=== PATIENT | male | born 1955 | race Caucasian/White ===

== ENCOUNTER → 2016-06-08 | Outpatient (CLI) | payer OTHER ==
[~2016-06-08] MED LIST: ADVIN25/60 INH; ADVIN25050 INH; ALBUAER INH; ALBUAER19 INH; AMLO10TA2 PO; ASPI81TA28 PO; CEPH500C2 PO; CLOP1TAB15 PO; CZR25 PO; CZR50 PO; FLV1 PO; FRRS300 PO; FURO-85 PO; FURO40TA3 PO; GLC/500 PO; INSDGIPEN SC; LEVO125T5 PO; LOSA1TAB PO; LPR25 PO; LPT/40 PO; MAGN400C2 PO; MAGN400T5 PO; METO25TA56 PO; MULT-513 PO; MULT-589 PO; NVLGI SC; PLV75 PO; POTA20TA13 PO; POTTAB2 PO; PRLSR20 PO; PRS5 PO; PRZ/40 PO; RANI300T2 PO; SPRIN INH; SUCR1TAB PO; SULF800T23 PO; SYMIN160 INH; TAMS0.4C38 PO; THM100 PO; VENL150T33 PO; VENL75CA73 PO; VNTHFA/IN INH; ZNT/300 PO
--- NOTE | 2016-06-08 11:48 | DIAGNOSTIC IMAGING REPORT ---
NUCLEAR MEDICINE PULMONARY VENTILATION/PERFUSION SCAN CLINICAL HISTORY: Exercise hypoxemia. Elevated hemidiaphragm. Shortness of breath. COMPARISON STUDY: Chest CT dated 01/08/2016 FINDINGS: The patient was ventilated utilizing 32.7 mCi of technetium 99m DTPA aerosol. The patient was perfused utilizing 5.5 mCi of technetium 99m MAA. The ventilation and perfusion studies were within normal limits, with the exception of a mildly elevated right hemidiaphragm. IMPRESSION: Normal study, no evidence of pulmonary embolism. Electronically signed by: Rich Abreu M.D. 06/08/2016 11:46 AM
--- NOTE | 2016-06-08 12:14 | DIAGNOSTIC IMAGING REPORT ---
CHEST 2 VIEWS ROUTINE CLINICAL HISTORY: Hypoxemia COMPARISON STUDY: 08/10/2015 FINDINGS: The heart is the upper limits of normal in size. There is a retrocardiac opacity consistent with a hiatal hernia. There is been interval resolution of the interstitial edema. There are no significant pleural effusions. There is no focal pulmonary consolidation.[ IMPRESSION: Hiatal hernia. No active disease in the chest. Electronically signed by: Rich Abreu M.D. 06/08/2016 12:12 PM
[2016-06-08 12:28] LABS: ARTERIAL BLD GAS O2 SATURATION 94.9 % (90-95); ARTERIAL BLOOD GAS BASE EXCESS 6.9 mEq/L (-9-1.8); ARTERIAL BLOOD GAS HCO3 30 mmol/L (19-24); ARTERIAL BLOOD GAS PO2 76 mm/Hg (80-95)
[2016-06-08 13:18] LABS: ALLEN TEST POS (POS); ARTERIAL BLOOD GAS pH 7.53 (7.35-7.45); O2 ADMINISTRATION RA
== END | disposition home or self-care (01) ==
LOC: C.RAD 10:13
PROVIDERS: ATTEND Registered Nurse
DX: R09.02 Hypoxemia (principal); G47.34 Idiopathic sleep related nonobstructive alveolar hypoventilation; J98.6 Disorders of diaphragm; K44.9 Diaphragmatic hernia without obstruction or gangrene

== ENCOUNTER 2016-07-17 11:13 | Observation (INO) | payer OTHER ==
[~2016-07-17] VITALS: Ht 180.3 cm; Wt 115.8 kg
[~2016-07-17 11:13] MED LIST changes: -ADVIN25/60 INH; -ADVIN25050 INH; -ALBUAER INH; -CEPH500C2 PO; -CLOP1TAB15 PO; -CZR25 PO; -FRRS300 PO; -FURO40TA3 PO; -INSDGIPEN SC; +LEVO125T4 PO; -LEVO125T5 PO; -LOSA1TAB PO; -MAGN400C2 PO; -MAGN400T5 PO; -METO25TA56 PO; -MULT-513 PO; -POTTAB2 PO; -PRS5 PO; -RANI300T2 PO; -SPRIN INH; -SUCR1TAB PO; -SULF800T23 PO; -SYMIN160 INH; -VENL150T33 PO; -VENL75CA73 PO; -VNTHFA/IN INH; -ZNT/300 PO
--- NOTE | 2016-07-17 12:06 | EMERGENCY ROOM VISIT NOTE ---
History Report prepared by [place]: Aarti Hess Under the Supervision of: Dr. Umair Kee M.D. First contact with patient: 11:37 Chief Complaint: SYNCOPE (NEAR SYNCOPE) Stated Complaint: DIZZINESS Nursing Triage Summary: see triage note History of Present Illness The patient is a 60 year old male who presents to the Emergency Room with complaints of resolved lightheadedness occurring today. The patient was at pulmonary rehab after a recent heart attack. Immediately after he finished his exercises, he became lightheaded and hypotensive. He was referred to the Emergency Room from the rehab. For the past few days, the patient has been having generalized body aches with even a small amount of exertion. He denies any chest pain, shortness of breath, dark/tarry stools, or any other complaints. Source of History: patient Onset: today Position: other (global) Quality: other (lightheadedness) Timing: resolved Associated Symptoms: No SOB, No chest pain Review of Systems See HPI for pertinent positives & negatives. A total of 10 systems reviewed and were otherwise negative. Past Medical & Surgical Medical Problems: (1) Aortic root enlargement (2) BPH (benign prostatic hyperplasia) (3) Dyslipidemia (4) GERD (gastroesophageal reflux disease) (5) Hyponatremia (6) Hypothyroidism (7) Orthostatic hypotension (8) Type 1 diabetes Surgical Problems: (1) History of hip replacement (2) History of tonsillectomy and adenoidectomy Family History No pertinent family history Social History Smoking Status: Former Smoker Alcohol Use: occasionally Marital Status: Housing Status: lives with family Occupation Status: employed Current/Historical Medications Scheduled Amlodipine Besylate (Norvasc), 2.5 MG PO BID Aspirin (Aspirin Ec), 81 MG PO DAILY Atorvastatin (Lipitor), 20 MG PO DAILY Budesonide/Formoterol Fumarate (Symbicort 160/4.5 Inhaler), 2 PUFFS INH BID Clopidogrel Bisulfate (Clopidogrel), 75 MG PO QAM Furosemide (Lasix), 20 MG PO DAILY Insulin Aspart (Novolog), 0 SC TID Insulin Glargine (Lantus Solostar), 70 UNITS SC DAILY Levothyroxine Sodium (Levothyroxine Sodium), 125 MCG PO DAILY Metformin Hcl (Glucophage), 1,000 MG PO BID Metoprolol Tartrate (Lopressor) (Lopressor), 12.5 MG PO BID Omeprazole (Prilosec), 20 MG PO QAM Potassium Chloride Microencaps (Potassium Chloride Er), 20 MEQ PO BID Tamsulosin Hcl (Flomax), 0.4 MG PO DAILY Scheduled PRN Albuterol Hfa (Ventolin Hfa), 2 PUFFS INH Q4H PRN for SOB/Wheezing Allergies Coded Allergies: No Known Allergies (Unverified , 07/17/16) Physical Exam Vital Signs Date Time Temp Pulse Resp B/P Pulse Ox O2 Delivery O2 Flow Rate FiO2 07/17/16 13:45 99 Nasal Cannula 2.0 07/17/16 13:34 69 22 99 Nasal Cannula 2.0 07/17/16 13:30 119/65 07/17/16 13:28 119/65 07/17/16 13:19 64 07/17/16 13:04 67 19 98 07/17/16 12:58 111/68 07/17/16 12:34 67 23 97 07/17/16 12:29 111/68 07/17/16 12:28 67 16 94 07/17/16 12:23 67 20 97 07/17/16 12:18 69 14 07/17/16 12:13 66 20 98 07/17/16 12:08 67 19 95 07/17/16 12:03 68 28 96 Nasal Cannula 2.0 07/17/16 11:59 108/63 07/17/16 11:58 68 22 93 Nasal Cannula 2.0 07/17/16 11:53 68 19 95 Nasal Cannula 2.0 07/17/16 11:48 70 20 93 Nasal Cannula 2.0 07/17/16 11:43 72 26 93 Nasal Cannula 2.0 07/17/16 11:40 87/55 07/17/16 11:38 70 19 96 Nasal Cannula 2.0 07/17/16 11:33 72 18 95 Nasal Cannula 2.0 07/17/16 11:31 78/48 07/17/16 11:28 92 Room Air 07/17/16 11:28 75 21 83/52 92 Room Air 07/17/16 11:28 74 18 108/64 92 Room Air 74 83/52 75 78/48 07/17/16 11:23 70 21 91 07/17/16 11:21 72 07/17/16 11:19 36.9 72 18 108/64 92 Room Air 07/17/16 11:18 71 23 94 07/17/16 11:17 108/64 Physical Exam CONSTITUTIONAL: No acute distress HEENT: No icterus, moist mucous membranes NECK: No meningismus, trachea is midline. CARDIOVASCULAR: Regular rate, normal perfusion RESPIRATORY: Unlabored breathing. Clear to auscultation. GASTROINTESTINAL: Non-tender GENITOURINARY: No flank tenderness MUSCULOSKELETAL: Full range of motion NEUROLOGIC: No acute gross focal deficits. PSYCHIATRIC: Normal affect SKIN: Normal for ethnicity. Medical Decision & Procedures ER Provider Diagnostic Interpretation: X-ray results as stated below per interpretation by me and the radiologist. SINGLE VIEW CHEST CLINICAL HISTORY: Hypotension. FINDINGS: An AP, portable, upright chest radiograph is compared to study dated 06/08/2016 and correlated with chest CT dated 01/08/2016. The examination is degraded by portable technique and patient rotation. The cardiomediastinal silhouette is unremarkable. A hiatal hernia is noted. Chronic interstitial thickening and mild elevation of the right hemidiaphragm are similar to previous. No airspace consolidation, pleural effusion, or pneumothorax is seen. The bony thorax is grossly intact. IMPRESSION: 1. No acute cardiopulmonary abnormality. 2. Hiatal hernia. Electronically signed by: Kwaku Collazo M.D. 07/17/2016 12:09 PM Dictated Date/Time: 07/17/2016 12:08 PM Laboratory Results 07/17/16 12:58 Red Blood Count 3.06, Mean Corpuscular Volume 95.1, Mean Corpuscular Hemoglobin 31.4, Mean Corpuscular Hemoglobin Concent 33.0, Mean Platelet Volume 9.6, Neutrophils (%) (Auto) 76.8, Lymphocytes (%) (Auto) 13.0, Monocytes (%) (Auto) 7.9, Eosinophils (%) (Auto) 1.5, Basophils (%) (Auto) 0.5, Neutrophils # (Auto) 7.00, Lymphocytes # (Auto) 1.19, Monocytes # (Auto) 0.72, Eosinophils # (Auto) 0.14, Basophils # (Auto) 0.05 07/17/16 12:26 Test 07/17/16 12:26 07/17/16 12:58 07/17/16 13:30 Prothrombin Time 11.1 SECONDS (9.0-12.0) Prothromb Time International Ratio 1.0 (0.9-1.1) Activated Partial Thromboplast Time 26.3 SECONDS (21.0-31.0) Partial Thromboplastin Ratio 1.0 Anion Gap 16.0 mmol/L (3-11) Est Creatinine Clear Calc Drug Dose 86.2 ml/min Estimated GFR () 76.8 Estimated GFR (Non- 66.3 BUN/Creatinine Ratio 5.4 (10-20) Calcium Level 9.2 mg/dl (8.5-10.1) White Blood Count 9.13 K/uL (4.8-10.8) Red Blood Count 3.06 M/uL (4.7-6.1) Hemoglobin 9.6 g/dL (14.0-18.0) Hematocrit 29.1 % (42-52) Mean Corpuscular Volume 95.1 fL (80-100) Mean Corpuscular Hemoglobin 31.4 pg (25-34) Mean Corpuscular Hemoglobin Concent 33.0 g/dl (32-36) Platelet Count 272 K/uL (130-400) Mean Platelet Volume 9.6 fL (7.4-10.4) Neutrophils (%) (Auto) 76.8 % Lymphocytes (%) (Auto) 13.0 % Monocytes (%) (Auto) 7.9 % Eosinophils (%) (Auto) 1.5 % Basophils (%) (Auto) 0.5 % Neutrophils # (Auto) 7.00 K/uL (1.4-6.5) Lymphocytes # (Auto) 1.19 K/uL (1.2-3.4) Monocytes # (Auto) 0.72 K/uL (0.11-0.59) Eosinophils # (Auto) 0.14 K/uL (0-0.5) Basophils # (Auto) 0.05 K/uL (0-0.2) RDW Standard Deviation 56.5 fL (36.4-46.3) RDW Coefficient of Variation 16.5 % (11.5-14.5) Immature Granulocyte % (Auto) 0.3 % Immature Granulocyte # (Auto) 0.03 K/uL (0.00-0.02) Phosphorus Level 2.9 mg/dl (2.5-4.9) Magnesium Level 1.8 mg/dl (1.8-2.4) Total Bilirubin 0.5 mg/dl (0.2-1) Direct Bilirubin 0.1 mg/dl (0-0.2) Aspartate Amino Transf (AST/SGOT) 47 U/L (15-37) Alanine Aminotransferase (ALT/SGPT) 32 U/L (12-78) Alkaline Phosphatase 104 U/L (45-117) Total Protein 7.6 gm/dl (6.4-8.2) Albumin 3.1 gm/dl (3.4-5.0) Thyroid Stimulating Hormone (TSH) 1.360 uIu/ml (0.300-4.500) Labs reviewed by ED physician. Medications Administered Medications (Trade) Dose Ordered Sig/Shante Route Start Time Stop Time Status Last Admin Dose Admin Aspirin 324 mg 324 mg NOW STAT PO 07/17/16 13:09 07/17/16 13:11 DC 07/17/16 13:54 324 MG Sodium Chloride (Nss 1000ml) 1,000 ml @ 250 mls/hr Q4H IV 07/17/16 15:10 07/17/16 23:09 07/17/16 19:41 250 MLS/HR ECG Indication: other (Lightheadedness) Rate (beats per minute): 68 Rhythm: sinus rhythm Findings: nonspecific-ST abn, no ectopy, other (normal axis) ED Course 1137: Past medical records reviewed. The patient was evaluated in room B11A. A complete history and physical examination was performed. 1309: Aspirin 324 mg PO 1336: Upon reexamination the patient is resting comfortably. I discussed results and treatment plan with the patient. He verbalizes agreement and understanding. [facility] The patient will be evaluated for further management. Medical Decision Differential diagnosis includes but is not limited to orthostasis, metabolic abnormality. 60-year-old presents to the emergency room from cardiac rehabilitation for evaluation of lightheadedness and hypotension. He denies any shortness of breath out of the ordinary and denies any chest pain. Troponin noted to be elevated and patient appears quite well in emergency room. Given his initial blood pressure of roughly 80/40 and abnormal troponin decision made to keep patient in hospital. He remained hemodynamically stable throughout emergency Department course. Consults Time Called: 1338 Consulting Physician: Lil[facility] Returned Call: [phone] I spoke with [facility] Impression Primary Impression: Hypotension Additional Impression: Elevated troponin Scribe Attestation The scribe's documentation has been prepared under my direction and personally reviewed by me in its entirety. I confirm that the note above accurately reflects all work, treatment, procedures, and medical decision making performed by me. Departure Information Dispostion Being Evaluated By Hospitalist Referrals Laila Bruce M.D. (PCP) Patient Instructions My [facility] Problem Qualifiers
--- NOTE | 2016-07-17 12:11 | DIAGNOSTIC IMAGING REPORT ---
SINGLE VIEW CHEST CLINICAL HISTORY: Hypotension. FINDINGS: An AP, portable, upright chest radiograph is compared to study dated 06/08/2016 and correlated with chest CT dated 01/08/2016. The examination is degraded by portable technique and patient rotation. The cardiomediastinal silhouette is unremarkable. A hiatal hernia is noted. Chronic interstitial thickening and mild elevation of the right hemidiaphragm are similar to previous. No airspace consolidation, pleural effusion, or pneumothorax is seen. The bony thorax is grossly intact. IMPRESSION: 1. No acute cardiopulmonary abnormality. 2. Hiatal hernia. Electronically signed by: Kwaku Collazo M.D. 07/17/2016 12:09 PM Dictated Date/Time: 07/17/2016 12:08 PM
[2016-07-17] MEDS ORDERED: VNTHFA/IN INH (12:34)
[2016-07-17] MEDS ORDERED: INSDGIPEN SC (12:41)
[2016-07-17 12:47] LABS: PROTHROMBIN TIME (PATIENT) 11.1 SECONDS (9.0-12.0)
[2016-07-17] MEDS ORDERED: ADVIN25/60 INH (12:47)
[2016-07-17] MEDS ORDERED: RANI300T2 PO (12:47)
[2016-07-17] MEDS ORDERED: LOSA1TAB PO (12:47)
[2016-07-17] MEDS ORDERED: MAGN400C2 PO (12:47)
[2016-07-17] MEDS ORDERED: POTTAB2 PO (12:47)
[2016-07-17 12:51] LABS: BUN/CREATININE RATIO 5.4 (10-20); CALCIUM 9.2 mg/dl (8.5-10.1); CREATININE 1.2 mg/dl (0.60-1.40)
[2016-07-17 13:09] LABS: BASO % 0.5 %; BASO ABS # 0.05 K/uL (0-0.2); COMPLETE YES; EOS % 1.5 %; HEMATOCRIT 29.1 % (42-52); IG% 0.3 %; LYMPH ABS # 1.19 K/uL (1.2-3.4); MEAN CELL VOLUME 95.1 fL (80-100); MEAN CORPUSCULAR HEMOGLOBIN 31.4 pg (25-34); MEAN PLATELET VOLUME 9.6 fL (7.4-10.4); MONO % 7.9 %; NEUT % 76.8 %; PLATELET COUNT 272 K/uL (130-400); RED BLOOD COUNT 3.06 M/uL (4.7-6.1); WHITE BLOOD COUNT 9.13 K/uL (4.8-10.8)
[2016-07-17] MEDS ORDERED: ASPIRIN 324 MG CHEW PO STA (13:09)
[2016-07-17 13:45] VITALS: O2SAT 99; Ht 180.3 cm; Wt 115.8 kg
[2016-07-17] MEDS ORDERED: GLUCAGON FOR INJ 1 MG VIAL SQ PRN (15:15)
[2016-07-17] MEDS ORDERED: GLUCOSE 40% GEL 15 GM TUBE PO PRN (15:15)
[2016-07-17] MEDS ORDERED: NITROGLYCERIN 0.4 MG SL PER TAB CHARGE SL PRN ×2 (15:15→15:30)
[2016-07-17] MEDS ORDERED: DEXTROSE 50% 50 ML SYR IV PRN (15:15)
[2016-07-17] MEDS ORDERED: ACETAMINOPHEN 325 MG TAB PO PRN (15:15)
[2016-07-17] MEDS ORDERED: MoRPHine SULFATE 2 MG/ML CARP IV PRN (15:15)
[2016-07-17] MEDS ORDERED: GLUCOSE 10 TABS/TUBE PO PRN (15:15)
[2016-07-17] MEDS ORDERED: ALBUTEROL HFA 8 GM INHALER INH PRN (15:30)
[2016-07-17] MEDS ORDERED: PHARMACY GLYCEMIC MGMT CONSULT PRN (15:37)
[2016-07-17] MEDS ORDERED: METO25TA56 PO (15:42)
[2016-07-17] MEDS ORDERED: SYMIN160 INH (15:42)
[2016-07-17] MEDS ORDERED: IV FLUIDS COMPLETED PRN (15:45)
--- NOTE | 2016-07-17 15:50 | Pharmacy Progress Note ---
Glycemic Control Intl Consult Date of Service Jul 17, 2016. Scope Glycemic Pharmacist consulted by Dr Eastman on 07/17/16 for glycemic control and to write orders per [facility] inpatient glycemic control protocol Objective Weight (Kilograms): 114.300 Accuchecks BSG (last 24hrs): Test 07/17/16 12:26 Random Glucose 78 mg/dl (70-99) Laboratory Data (last 24hrs) Test 07/17/16 12:26 07/17/16 12:58 Anion Gap 16.0 mmol/L BUN/Creatinine Ratio 5.4 Blood Urea Nitrogen 7 mg/dl Creatinine 1.20 mg/dl Potassium Level 3.0 mmol/L Sodium Level 138 mmol/L White Blood Count 9.13 K/uL Red Blood Count 3.06 M/uL Hemoglobin 9.6 g/dL Hematocrit 29.1 % Mean Corpuscular Volume 95.1 fL Mean Corpuscular Hemoglobin 31.4 pg Mean Corpuscular Hemoglobin Concent 33.0 g/dl Platelet Count 272 K/uL Mean Platelet Volume 9.6 fL Neutrophils (%) (Auto) 76.8 % Lymphocytes (%) (Auto) 13.0 % Monocytes (%) (Auto) 7.9 % Eosinophils (%) (Auto) 1.5 % Basophils (%) (Auto) 0.5 % Neutrophils # (Auto) 7.00 K/uL Lymphocytes # (Auto) 1.19 K/uL Monocytes # (Auto) 0.72 K/uL Eosinophils # (Auto) 0.14 K/uL Basophils # (Auto) 0.05 K/uL HbA1c On order Recent Pertinent Medications Outpatient Anti-diabetic Regimen: * Lantus 70 units BID plus metformin 1000 mg BID * A1c = 9.3 % 02/2016 Risk Factors for Insulin Resistance: * Steroids: * Infection: * Pressors: * IVF: NS x 2 liters * Recent Surgery: recent [place] * Diet: heart healthy, type 2 diet * Mechanical Ventilation: Assessment & Plan ASSESSMENT: * ADA & AACE recommend a goal blood sugar range 140-180 mg/dl for the majority of critically ill & non-critically ill patients. However, more stringent targets may be selected in individual cases. PLAN FOR INPATIENT GLYCEMIC CONTROL: * Holding outpatient oral diabetes medications * Basal insulin with LANTUS 0-30 units SQ BID (based upon blood sugar --> if blood sugar > 120 then give Lantus 30 units, if blood sugar < 120 then give Lantus 20 units, if blood sugar < 100 then give Lantus 0 units) * Correctional Insulin with NOVOLOG per scale ACHS * Goal Range: Low 100 mg/dL - High 140 mg/dL * Correction Factor: 20 mg/dL/unit * Nutritional / Prandial insulin per carb ratio of 1 unit per 7 grams CHO consumed * Please note that the plan above was derived based on current level of insulin resistance and hospital stress. These recommendations are appropriate for inpatient admission only. Plan of care upon discharge will need to be reassessed to avoid potential outpatient hypo/hyperglycemia. Thank you.
--- NOTE | 2016-07-17 15:50 | History and Physical ---
History & Physical Date & Time of Service: Jul 17, 2016 at 14:49 Chief Complaint: Dizziness Primary Care Physician: Laila Bruce M.D. History of Present Illness 60 yoM with IDDM and h/o nonobstructive CAD presents to the ER after having low BP and lightheadedness without LOC after pulmonary rehab. He states that he had an episode of diarrhea last night once, he has also been taking daily potassium supplementation for the past 3 days prescribed to him from Dr. Ghosh and is on daily Lasix. He has a h/o ETOH abuse and reports daily pint of [place] whiskey and non-alcoholic beer. He was able to perform all the exercises in pulmonary rehab this morning, but only afterwards when they were assessing his BP was there concern because it was in the 80s systolic. He drank some water and repeat BP was reported to be in the 90s systolic. He stood up and became lightheaded, which caused the concern, and he was sent over to the ER. He denies LOC, chest pain, shortness of breath, headache, visual changes, URI symptoms, persistent diarrhea this morning (although no BM), abdominal pain, blood in stool, nausea or vomiting. He is unsure what caused the lone episode of watery diarrhea and states that he ate cantelaupe from [employer] or [employer] and had some lunchmeat on a sandwich. He is off the insulin pump now for 6 months, and is taking Lantus (which was just switched from pen to vial but kept at same dosage of 70 Units once daily) and he takes Novolog based on a sliding scale with a 1 to 7 carb ratio. He currently denies lightheadedness but vitals reveals orthostatic hypotension. He was given ASA, no fluids given yet. He has a K of 3.0 and has not eaten yet today. CXR is negative for active disease , EKG rveals SR 73 and CBC is normal aside from anemia which is known and at baseline, BMP normal aside from K of 3 and Cr 1.2. A troponin was checked and is 0.144. Past Medical/Surgical History Medical Problems: (1) Aortic root enlargement Status: Chronic (2) BPH (benign prostatic hyperplasia) Status: Chronic (3) Dyslipidemia Status: Chronic (4) GERD (gastroesophageal reflux disease) Status: Chronic (5) Hyponatremia Status: Chronic (6) Hypothyroidism Status: Chronic (7) Type 1 diabetes Status: Chronic Surgical Problems: (1) History of hip replacement Status: Chronic (2) History of tonsillectomy and adenoidectomy Status: Chronic Family History No pertinent family history Social History Smoking Status: Former Smoker Alcohol Use: heavy (pint of [place] daily) Marital Status: Housing status: lives with significant other Occupational Status: employed Immunizations History of Influenza Vaccine: Yes Influenza Vaccine Date: Feb 06, 2016 History of Tetanus Vaccine?: Yes Tetanus Immunization Date: Mar 15, 2009 History of Pneumococcal: Yes Pneumococcal Date: Feb 21, 2016 Multi-Drug Resistant Organisms History of MDRO: No Allergies Coded Allergies: No Known Allergies (Unverified , 07/17/16) Home Medications Scheduled Amlodipine Besylate (Norvasc), 2.5 MG PO BID Aspirin (Aspirin Ec), 81 MG PO DAILY Atorvastatin (Lipitor), 20 MG PO DAILY Budesonide/Formoterol Fumarate (Symbicort 160/4.5 Inhaler), 2 PUFFS INH BID Clopidogrel Bisulfate (Clopidogrel), 75 MG PO QAM Furosemide (Lasix), 20 MG PO DAILY Insulin Aspart (Novolog), 0 SC TID Insulin Glargine (Lantus Solostar), 70 UNITS SC DAILY Levothyroxine Sodium (Levothyroxine Sodium), 125 MCG PO DAILY Metformin Hcl (Glucophage), 1,000 MG PO BID Metoprolol Tartrate (Lopressor) (Lopressor), 12.5 MG PO BID Omeprazole (Prilosec), 20 MG PO QAM Potassium Chloride Microencaps (Potassium Chloride Er), 20 MEQ PO BID Tamsulosin Hcl (Flomax), 0.4 MG PO DAILY Scheduled PRN Albuterol Hfa (Ventolin Hfa), 2 PUFFS INH Q4H PRN for SOB/Wheezing Review of Systems All systems were reviewed and negative except as indicated in HPI. Physical Exam Vital Signs Date Time Temp Pulse Resp B/P Pulse Ox O2 Delivery O2 Flow Rate FiO2 07/17/16 13:45 99 Nasal Cannula 2.0 07/17/16 13:34 69 22 99 Nasal Cannula 2.0 07/17/16 13:30 119/65 07/17/16 13:28 119/65 07/17/16 13:19 64 07/17/16 13:04 67 19 98 07/17/16 12:58 111/68 07/17/16 12:34 67 23 97 07/17/16 12:29 111/68 07/17/16 12:28 67 16 94 07/17/16 12:23 67 20 97 07/17/16 12:18 69 14 07/17/16 12:13 66 20 98 07/17/16 12:08 67 19 95 07/17/16 12:03 68 28 96 Nasal Cannula 2.0 07/17/16 11:59 108/63 07/17/16 11:58 68 22 93 Nasal Cannula 2.0 07/17/16 11:53 68 19 95 Nasal Cannula 2.0 07/17/16 11:48 70 20 93 Nasal Cannula 2.0 07/17/16 11:43 72 26 93 Nasal Cannula 2.0 07/17/16 11:40 87/55 07/17/16 11:38 70 19 96 Nasal Cannula 2.0 07/17/16 11:33 72 18 95 Nasal Cannula 2.0 07/17/16 11:31 78/48 07/17/16 11:28 92 Room Air 07/17/16 11:28 75 21 83/52 92 Room Air 07/17/16 11:28 74 18 108/64 92 Room Air 74 83/52 75 78/48 07/17/16 11:23 70 21 91 07/17/16 11:21 72 07/17/16 11:19 36.9 72 18 108/64 92 Room Air 07/17/16 11:18 71 23 94 07/17/16 11:17 108/64 GEN: WNWD, in no acute distress, alert and appropriate HEENT: NC/AT, PERRL, normal sclerae CARDIO: reg rate, S1/2 heard without m/g/r LUNGS: CTA bilaterally, no crackles, rales or wheezes, good diaphragmatic excursion ABD: soft, non-tender, non-distended, no rebound or guarding EXTREMITY: RP and DP palpable 2+ bilat, no LE swelling or edema, extremities are warm and well-perfused NEURO: CN 2-12 intact, sensation intact throughout, knee reflex 2+ bilat MUSC: 5/5 strength throughout, no focal deficits SKIN: warm and dry Diagnostics Laboratory Results Results Past 24 Hours Test 07/17/16 12:26 07/17/16 12:58 07/17/16 13:30 Range/Units Prothrombin Time 11.1 9.0-12.0 SECONDS Prothromb Time International Ratio 1.0 0.9-1.1 Activated Partial Thromboplast Time 26.3 21.0-31.0 SECONDS Partial Thromboplastin Ratio 1.0 Sodium Level 138 136-145 mmol/L Potassium Level 3.0 3.5-5.1 mmol/L Chloride Level 97 98-107 mmol/L Carbon Dioxide Level 25 21-32 mmol/L Anion Gap 16.0 3-11 mmol/L Blood Urea Nitrogen 7 7-18 mg/dl Creatinine 1.20 0.60-1.40 mg/dl Est Creatinine Clear Calc Drug Dose 86.2 ml/min Estimated GFR () 76.8 Estimated GFR (Non- 66.3 BUN/Creatinine Ratio 5.4 10-20 Random Glucose 78 70-99 mg/dl Calcium Level 9.2 8.5-10.1 mg/dl Troponin I 0.144 0.142 0-0.045 ng/ml White Blood Count 9.13 4.8-10.8 K/uL Red Blood Count 3.06 4.7-6.1 M/uL Hemoglobin 9.6 14.0-18.0 g/dL Hematocrit 29.1 42-52 % Mean Corpuscular Volume 95.1 80-100 fL Mean Corpuscular Hemoglobin 31.4 25-34 pg Mean Corpuscular Hemoglobin Concent 33.0 32-36 g/dl Platelet Count 272 130-400 K/uL Mean Platelet Volume 9.6 7.4-10.4 fL Neutrophils (%) (Auto) 76.8 % Lymphocytes (%) (Auto) 13.0 % Monocytes (%) (Auto) 7.9 % Eosinophils (%) (Auto) 1.5 % Basophils (%) (Auto) 0.5 % Neutrophils # (Auto) 7.00 1.4-6.5 K/uL Lymphocytes # (Auto) 1.19 1.2-3.4 K/uL Monocytes # (Auto) 0.72 0.11-0.59 K/uL Eosinophils # (Auto) 0.14 0-0.5 K/uL Basophils # (Auto) 0.05 0-0.2 K/uL RDW Standard Deviation 56.5 36.4-46.3 fL RDW Coefficient of Variation 16.5 11.5-14.5 % Immature Granulocyte % (Auto) 0.3 % Immature Granulocyte # (Auto) 0.03 0.00-0.02 K/uL Diagnostic Radiology CXR IMPRESSION: 1. No acute cardiopulmonary abnormality. 2. Hiatal hernia. EKG SR 73 Impression Assessment and Plan 1. presyncope 2/2 orthostatic hypotension in setting of low K, diuretic use, not eating any food and recent diarrhea. Will place him on telemetry and rule out ACS overnight -IVF -replace K -hold Lasix -trend enzymes -monitor on telemetry -feed him -FSG came back with profound hypoglycemia (36) likely a result of am Lantus- pharmacy consult to assist with insulin management 2. IDDM-off insulin pump, low to 36 while on the floor likely related to am Lantus. Pharmacy consult, liberal coverage 3. ETOH abuse -gabapentin protocol -liberal benzos 4. elevated trop-rule out ACS (RFs include diabetic, asymptomatic) 5. Hypok-2/2 diuretic use vs diarrhea-as above 6. Diarrhea-if persistent, check stool studies 7. Anemia-chronic, at baseline. Cont outpatient workup/treatment DVT proph: Lovenox Full Code Dispo-to tele obs [facility] Level of Care Telemetry Advanced Directives Existing Living Will: No Existing Power of Audit Lead: No Resuscitation Status FULL RESUSCITATION VTE Prophylaxis Risk Level: Moderate Given or contraindicated: Enoxaparin (Lovenox)SQ
[2016-07-17 16:00] VITALS: BP 151/88; PULSE 74; TEMP 36.6; O2SAT 98; O2SAT 99
[2016-07-17] MEDS ORDERED: LORAZEPAM 1 MG TAB PO PRN (16:00)
[2016-07-17] MEDS ORDERED: GABAPENTIN 600 MG TAB PO SCH (16:00)
[2016-07-17] MEDS: INSULIN ASPART 100 UNITS/ML 3 ML PEN SC SCH ×2 (16:15→20:49)
[2016-07-17 16:28] LABS: MAGNESIUM 1.8 mg/dl (1.8-2.4); PHOSPHORUS 2.9 mg/dl (2.5-4.9); THYROID STIMULATING HORMONE 1.36 uIu/ml (0.300-4.500)
[2016-07-17] MEDS ORDERED: NVLGI SC (16:32)
[2016-07-17] MEDS: THIAMINE HCL 100 MG TAB PO SCH (17:26)
[2016-07-17] MEDS: POTASSIUM CHLORIDE 20 MEQ TABCR PO SCH ×2 (17:26→19:43)
[2016-07-17] MEDS: SODIUM CHLORIDE 0.9% 1000ML 1,000 ML IV SCH ×2 (17:26→19:41)
[2016-07-17] MEDS ORDERED: MULTI-VITAMIN INFUSION INJ 10 ML, THIAMINE HCL INJ 100 MG, FoLIC ACID INJ 1 MG in SODIU... IV SCH (17:30)
[2016-07-17] MEDS ORDERED: GABAPENTIN 1200MG LOADING DOSE PO SCH (18:00)
[2016-07-17 19:37] VITALS: BP 116/72; PULSE 84; TEMP 36.6; O2SAT 95
[2016-07-17] MEDS: BUDESONIDE/FORMOTEROL FUMARATE 160/4.5 60 PUFFS/INHALER INH SCH (19:41)
[2016-07-17] MEDS: METOPROLOL TARTRATE 25 MG TAB PO SCH (19:42)
[2016-07-17] MEDS: AMLODIPINE BESYLATE 5 MG TAB PO SCH (19:43)
[2016-07-17 20:00] VITALS: O2SAT 95
[2016-07-17 20:21] LABS: CKMB/CK RATIO 1.5 (0-3.0)
[2016-07-17] MEDS ORDERED: ENOXAPARIN 40 MG/0.4 ML SYR SC SCH (21:00)
[2016-07-17] MEDS ORDERED: INSULIN GLARGINE SOLOSTAR 100 UNITS/ML 3 ML PEN SC SCH (21:00)
[2016-07-17 23:51] VITALS: BP 165/93; PULSE 71; TEMP 36.7; O2SAT 97
[2016-07-18] VITALS (8 sets, daily range): BP systolic 148–174; BP diastolic 89–110; PULSE 68–74; TEMP 36.6–36.9; O2SAT 92–95
[2016-07-18] MEDS: GABAPENTIN 600MG Q6H DOSE PO SCH ×2 (01:16→06:14)
[2016-07-18] MEDS: POTASSIUM CHLORIDE 20 MEQ TABCR PO SCH ×2 (01:16→08:11)
[2016-07-18 02:17] LABS: CKMB/CK RATIO 1.9 (0-3.0)
[2016-07-18] MEDS ORDERED: LEVOTHYROXINE 125 MCG TAB PO SCH (06:00)
[2016-07-18 06:18] LABS: HEMATOCRIT 28.1 % (42-52); MEAN CELL VOLUME 96.6 fL (80-100); MEAN CORPUSCULAR HEMOGLOBIN 30.6 pg (25-34); MEAN CORPUSCULAR HGB CONC 31.7 g/dl (32-36); PLATELET COUNT 252 K/uL (130-400); RED BLOOD COUNT 2.91 M/uL (4.7-6.1); WHITE BLOOD COUNT 5.79 K/uL (4.8-10.8)
[2016-07-18 06:41] LABS: ESTIMATED AVERAGE GLUCOSE 209 mg/dl; HA1C FLAG Normal (Normal)
[2016-07-18] MEDS: INSULIN ASPART 100 UNITS/ML 3 ML PEN SC SCH ×3 (07:00→15:32)
[2016-07-18 07:15] LABS: BUN/CREATININE RATIO 10.9 (10-20); CALCIUM 8.2 mg/dl (8.5-10.1); CREATININE 1.1 mg/dl (0.60-1.40); POTASSIUM 4.1 mmol/L (3.5-5.1)
[2016-07-18 07:22] LABS: CHOLESTEROL/HDL RATIO 2.1
[2016-07-18] MEDS: BUDESONIDE/FORMOTEROL FUMARATE 160/4.5 60 PUFFS/INHALER INH SCH (08:09)
[2016-07-18] MEDS: THIAMINE HCL 100 MG TAB PO SCH (08:10)
[2016-07-18] MEDS: AMLODIPINE BESYLATE 5 MG TAB PO SCH (08:12)
[2016-07-18] MEDS: METOPROLOL TARTRATE 25 MG TAB PO SCH (08:12)
[2016-07-18] MEDS ORDERED: INSULIN GLARGINE SOLOSTAR 100 UNITS/ML 3 ML PEN SC SCH (09:00)
[2016-07-18] MEDS ORDERED: FUROSEMIDE 20 MG TAB PO SCH (09:00)
[2016-07-18] MEDS ORDERED: ASPIRIN 81 MG ECTAB PO SCH ×2 (09:00)
[2016-07-18] MEDS ORDERED: PANTOprazole SOD 40 MG TAB PO SCH (09:00)
[2016-07-18] MEDS ORDERED: ATORVASTATIN 20 MG TAB PO SCH (09:00)
[2016-07-18] MEDS ORDERED: CLOPIDOGREL BISULFATE 75 MG TAB PO SCH (09:00)
[2016-07-18] MEDS ORDERED: TAMSULOSIN HCL 0.4 MG CAP PO SCH (09:00)
--- NOTE | 2016-07-18 13:56 | Pharmacy Progress Note ---
Glycemic Control: Progress Nt Date of Service Jul 18, 2016. Scope Glycemic Pharmacist consulted by Dr Eastman on 07/17/16 for glycemic control and to write orders per [facility] inpatient glycemic control protocol. Objective Accuchecks BSG (last 24hrs): Test 07/17/16 16:52 07/17/16 17:21 07/17/16 20:19 07/18/16 05:45 Bedside Glucose 38 mg/dl (70-99) 75 mg/dl (70-99) 235 mg/dl (70-99) Random Glucose 204 mg/dl (70-99) Test 07/18/16 06:51 07/18/16 11:24 Bedside Glucose 191 mg/dl (70-99) 316 mg/dl (70-99) Laboratory Data (last 24hrs) Test 07/18/16 05:45 Anion Gap 8.0 mmol/L BUN/Creatinine Ratio 10.9 Blood Urea Nitrogen 12 mg/dl Creatinine 1.10 mg/dl Hemoglobin A1c 8.9 % Potassium Level 4.1 mmol/L Sodium Level 140 mmol/L White Blood Count 5.79 K/uL HbA1c: Test 07/18/16 05:45 Hemoglobin A1c 8.9 % (4.5-5.6) H Recent Pertinent Medications Outpatient Anti-diabetic Regimen: * Lantus 70 units SQ Daily * Novolog using a carb ratio of 1 unit per 7-10gm CHO consumed; correction factor 30mg/dL/unit * compliance is questionable * A1c = 8.6 % 05/24/16 The patient is currently receiving: * Basal insulin: none was ordered this AM; ordered 45 units SQ x 1 this AM based upon review of prior admission data * Correctional Insulin: Novolog Correction per scale ACHS Goal Range: Low 100 mg/dL - High 140 mg/dL Correction Factor: 30 mg/dL/unit * Prandial insulin: none was ordered this AM; I added a CR of 1 unit per 8gm CHO consumed given h/o Type 1DM vs JANETH * Oral Agents: none currently Risk Factors for Insulin Resistance: * Diet: ordered T1DM / AHA diet. Assessment & Plan ASSESSMENT: 07/18/16 * Patient with h/o T1DM vs JANETH and h/o DKA admitted with dizziness, presyncope , orthostatic hypotension, recent h/o IL * Glycemic control service has followed this patient on prior admissions * As noted above, he appears to be ketosis prone and is insulin dependent; and will require both basal and prandial insulin to maintain adequate control * Severe hypoglycemia observed yesterday (BSG of 38) pre-dinner. No Novolog had been administered prior to this. It was reported that he had taken 70 units of Lantus in the AM yesterday. This led to the Lantus being discontinued. The Novolog carb ratio was also discontinued. * BSG was 204 this AM. I restarted his Lantus at a reduced dose based upon data we had collected from his 08/2015 admission. During that admission he appeared to require 45-55 units of basal insulin per day. * I added a carb ratio this AM however this was after the breakfast dose of Novolog was already given. His pre-lunch BSG is up to 316-331. This was already treated with Novolog. I requested the nurses recheck BSG ~1345 to confirm BSG trending down and not upward. In the past he has required more aggressive Novolog than what I had ordered this AM -- will adjust the CF and CR slightly. * More frequent BSG checks and Novolog coverage are likely jane to better control over the next 24 hrs. PLAN FOR INPATIENT GLYCEMIC CONTROL: * Hold metformin at this time - consider restarting at a later time * Basal insulin with LANTUS 45 units SQ Q AM * Correctional Insulin with NOVOLOG per scale ACHS and at 0200 tonight * Goal Range: Low 110 mg/dL - High 140 mg/dL * Correction Factor: 20 mg/dL/unit * Nutritional / Prandial insulin per carb ratio of 1 unit per 7 grams CHO consumed * Please note that the plan above was derived based on current level of insulin resistance and hospital stress. These recommendations are appropriate for inpatient admission only. Plan of care upon discharge will need to be reassessed to avoid potential outpatient hypo/hyperglycemia. Thank you.
[2016-07-18] MEDS ORDERED: GABAPENTIN 600MG Q8H DOSE PO SCH (14:00)
[2016-07-18] MEDS ORDERED: INSULIN ASPART 100 UNITS/ML 3 ML PEN SC ONE (14:00)
[2016-07-18] MEDS ORDERED: LOSARTAN POTASSIUM 25 MG TAB PO ONE (15:15)
[2016-07-18] MEDS ORDERED: METOPROLOL TARTRATE 25 MG TAB PO ONE (15:15)
[2016-07-18] MEDS ORDERED: VENL150T33 PO (15:26)
[2016-07-18] MEDS ORDERED: ADVIN25050 INH (15:26)
[2016-07-18] MEDS ORDERED: FLV1 PO (15:26)
[2016-07-18] MEDS ORDERED: CZR25 PO (15:26)
[2016-07-18] MEDS ORDERED: MULT-513 PO (15:26)
[2016-07-18] MEDS ORDERED: SUCR1TAB PO (15:26)
[2016-07-18] MEDS ORDERED: SPRIN INH (15:26)
[2016-07-18] MEDS ORDERED: MAGN400T5 PO (15:26)
[2016-07-18] MEDS ORDERED: ZNT/300 PO (15:26)
[2016-07-18] MEDS ORDERED: THM100 PO (15:26)
[2016-07-18] MEDS ORDERED: POTTAB2 PO (15:26)
[2016-07-18] MEDS ORDERED: PRS5 PO (15:26)
--- NOTE | 2016-07-18 15:30 | Discharge Instructions ---
Discharge Instructions Admission Reason for Admission: Orthostatic Hypotension Discharge Discharge Diagnosis / Problem: Orthostatic hypotension Discharge Goals Goal(s): Improve disease control Activity Recommendations Activity Limitations: resume your previous activity . Instructions / Follow-Up Instructions / Follow-Up Please follow up with Family Medicine Dr. Bruce on July 23 at 12:50pm. Current Hospital Diet Patient's current hospital diet: AHA Diet (Heart Healthy), Diabetes Type 1 Diet Discharge Diet Recommended Diet: AHA Diet (Heart Healthy), Diabetes Type 2 Diet Pending Studies Studies pending at discharge: no Laboratory Results Hemoglobin A1c Test 07/18/16 05:45 Range/Units Estimated Average Glucose 209 mg/dl Hemoglobin A1c 8.9 H 4.5-5.6 % Lipid Panel Test 07/18/16 05:45 Range/Units Triglycerides Level 96 0-150 mg/dl Cholesterol Level 106 0-200 mg/dl HDL Cholesterol 50 mg/dl Cholesterol/HDL Ratio 2.1 LDL Cholesterol, Calculated 37 mg/dl Medical Emergencies . Who to Call and When: Medical Emergencies: If at any time you feel your situation is an emergency, please call 911 immediately. . Non-Emergent Contact Non-Emergency issues call your: Primary Care Provider . . "Provider Documentation" section prepared by Enedelia Greene. VTE Core Measure Inpt VTE Proph given/why not?: Enoxaparin (Lovenox)SQ
--- NOTE | 2016-07-18 19:03 | Discharge Summary ---
Discharge Summary Admission Date: Jul 17, 2016 at 15:17 Discharge Date: Jul 18, 2016 Discharge Disposition: Home Principal Diagnosis: Orthostatic hypotension Medication Reconciliation Continued Medications: Albuterol Hfa (Ventolin Hfa) 200 Puffs/74145 Mcg Aers 2 PUFFS INH Q4H PRN for SOB/Wheezing, #1 INHALER Aspirin (Aspirin Ec) 81 Mg Tab 81 MG PO DAILY Atorvastatin (Lipitor) 40 Mg Tab 40 MG PO DAILY, TAB Clopidogrel Bisulfate (Clopidogrel) 75 Mg Tab 75 MG PO QAM for 90 Days, #90 TAB Finasteride (Finasteride) 5 Mg Tab 1 TAB PO DAILY Fluticasone Prop/Salmeterol (Advair Diskus 250-50 Mcg/Dose) 14 Puff/1 Inhaler Aerp 1 PUFF INH BID Folic Acid (Folic Acid) 1 Mg Tab 1 TAB PO DAILY Furosemide (Lasix) 20 Mg Tab 40 MG PO DAILY, TAB Insulin Aspart (Novolog) Inj 0 SC TID, BTL INJECT 1 UNIT PER 10 CARBOHYDRATES PER SLIDING SCALE. MAXIMUM 100 UNITS PER DAY. CORRECTION FACTOR OF 30MG/DL/UNIT Insulin Glargine (Lantus Solostar) 100 Unit/Ml Inj 70 UNITS SC DAILY, PEN Levothyroxine Sodium (Levothyroxine Sodium) 125 Mcg Tab 125 MCG PO DAILY, TAB Losartan Potassium (Losartan Potassium) 25 Mg Tab 1 TAB PO DAILY Magnesium Oxide (Mag-Ox) 400 Mg Tab 400 MG PO BID, TAB Metformin Hcl (Glucophage) 500 Mg Tab 500 MG PO BID, TAB Metoprolol Tartrate (Lopressor) (Lopressor) 25 Mg Tab 3 TAB PO BID, 1 Refill Multivitamins/Minerals (Mvi With Minerals) Tab 1 TAB PO DAILY, TAB Pot Phosphate Monobasic W/ Sod (Phospha 250 Neutral) 1 Tab Tab 3 TAB PO BID Potassium Chloride Microencaps (Potassium Chloride Er) 20 Meq Tab 20 MEQ PO DAILY, TAB Ranitidine HCl (Ranitidine HCl) 300 Mg Tab 1 TAB PO BID Sucralfate (Sucralfate) 1 Gm Tab 1 GM PO QID, TAB Tamsulosin Hcl (Flomax) 0.4 Mg Cap 0.4 MG PO DAILY, CAP Thiamine HCl (Vitamin B-1) 100 Mg Tab 1 TAB PO DAILY Tiotropium [place] (Spiriva Handihaler) 5 Puff/90 Mcg Aerp 1 PUFF INH DAILY Venlafaxine Hcl (Venlafaxine Hcl Er) 150 Mg Tab 1 TAB PO DAILY, TAB 1 Refill Admission Information HPI (per Admitting provider): 60 yoM with IDDM and h/o nonobstructive CAD presents to the ER after having low BP and lightheadedness without LOC after pulmonary rehab. He states that he had an episode of diarrhea last night once, he has also been taking daily potassium supplementation for the past 3 days prescribed to him from Dr. Ghosh and is on daily Lasix. He has a h/o ETOH abuse and reports daily pint of [employer] whiskey and non-alcoholic beer. He was able to perform all the exercises in pulmonary rehab this morning, but only afterwards when they were assessing his BP was there concern because it was in the 80s systolic. He drank some water and repeat BP was reported to be in the 90s systolic. He stood up and became lightheaded, which caused the concern, and he was sent over to the ER. He denies LOC, chest pain, shortness of breath, headache, visual changes, URI symptoms, persistent diarrhea this morning (although no BM), abdominal pain, blood in stool, nausea or vomiting. He is unsure what caused the lone episode of watery diarrhea and states that he ate cantelaupe from [employer] or [employer] and had some lunchmeat on a sandwich. He is off the insulin pump now for 6 months, and is taking Lantus (which was just switched from pen to vial but kept at same dosage of 70 Units once daily) and he takes Novolog based on a sliding scale with a 1 to 7 carb ratio. He currently denies lightheadedness but vitals reveals orthostatic hypotension. He was given ASA, no fluids given yet. He has a K of 3.0 and has not eaten yet today. CXR is negative for active disease , EKG rveals SR 73 and CBC is normal aside from anemia which is known and at baseline, BMP normal aside from K of 3 and Cr 1.2. A troponin was checked and is 0.144. Physical Exam (per Admitting): GEN: WNWD, in no acute distress, alert and appropriate HEENT: NC/AT, PERRL, normal sclerae CARDIO: reg rate, S1/2 heard without m/g/r LUNGS: CTA bilaterally, no crackles, rales or wheezes, good diaphragmatic excursion ABD: soft, non-tender, non-distended, no rebound or guarding EXTREMITY: RP and DP palpable 2+ bilat, no LE swelling or edema, extremities are warm and well-perfused NEURO: CN 2-12 intact, sensation intact throughout, knee reflex 2+ bilat MUSC: 5/5 strength throughout, no focal deficits SKIN: warm and dry Hospital Course Patient was admitted with orthostatic hypotension, in the setting of decreased food intake and recent diarrhea. Patient was hydrated overnight with IVF's with resolution of symptoms and improvement of blood pressure. Patient also had labile blood glucoses due to insulin being held. ACS r/o was essentially negative. Patient has a mildly elevated troponin in the setting of nonobstructive CAD. EKG this hospitalization showed resolution of previous changes from a year ago. Patient denied chest pain or SOB. Patient had NSTEMI one year ago with troponin as high as the 90's. Patient requesting discharge. Patient felt stable for discharge with Family Medicine follow up. No changes were made to patient's medications upon discharge. Patient had recently seen both Endocrine and Nephrology prior to hospitalization. PE on discharge: General- awake; alert; NAD Eyes- EOMI; no scleral icterus Neck- no stridor; trachea midline Lungs- CTA bilaterally; no wheezes/crackles Heart- RRR; no m/r/g Abdomen- soft; NTND; nBS Back- no gross abnormalities Extremities- no c/c/e; no deformity Neuro- no gross focal deficits Skin- no appreciable rash . Total time spent on discharge = This includes examination of the patient, discharge planning, medication reconciliation, and communication with other providers. Discharge Instructions Discharge Instructions Admission Reason for Admission: Orthostatic Hypotension Discharge Discharge Diagnosis / Problem: Orthostatic hypotension Discharge Goals Goal(s): Improve disease control Activity Recommendations Activity Limitations: resume your previous activity . Instructions / Follow-Up Instructions / Follow-Up Please follow up with Family Medicine Dr. Bruce on July 23 at 12:50pm. Current Hospital Diet Patient's current hospital diet: AHA Diet (Heart Healthy), Diabetes Type 1 Diet Discharge Diet Recommended Diet: AHA Diet (Heart Healthy), Diabetes Type 2 Diet Pending Studies Studies pending at discharge: no Laboratory Results Hemoglobin A1c Test 07/18/16 05:45 Range/Units Estimated Average Glucose 209 mg/dl Hemoglobin A1c 8.9 H 4.5-5.6 % Lipid Panel Test 07/18/16 05:45 Range/Units Triglycerides Level 96 0-150 mg/dl Cholesterol Level 106 0-200 mg/dl HDL Cholesterol 50 mg/dl Cholesterol/HDL Ratio 2.1 LDL Cholesterol, Calculated 37 mg/dl Medical Emergencies . Who to Call and When: Medical Emergencies: If at any time you feel your situation is an emergency, please call 911 immediately. . Non-Emergent Contact Non-Emergency issues call your: Primary Care Provider . . "Provider Documentation" section prepared by Enedelia Greene. VTE Core Measure Inpt VTE Proph given/why not?: Enoxaparin (Lovenox)SQ Additional Copies To Laila Bruce M.D.
[2016-07-19] MEDS ORDERED: INSULIN ASPART 100 UNITS/ML 3 ML PEN SC ONE (02:00)
[2016-07-19] MEDS ORDERED: GABAPENTIN 600MG Q12H DOSE PO SCH (18:00)
[2016-07-21] MEDS ORDERED: GABAPENTIN 600MG X1 DOSE PO SCH (06:00)
[2016-07-29] MEDS ORDERED: VENL75CA73 PO (10:42)
[2016-07-29] MEDS ORDERED: CLOP1TAB15 PO (10:42)
[2016-07-29] MEDS ORDERED: FURO40TA3 PO (10:42)
[2016-07-29] MEDS ORDERED: ALBUAER INH (10:42)
[2017-01-21] MEDS ORDERED: FRRS300 PO (08:05)
[2017-01-25] MEDS ORDERED: CEPH500C2 PO (12:09)
== END 2016-07-18 17:18 | disposition home or self-care (01) ==
LOC: ENRESERVTM → ENRESERVDT → EDBD 11:13 → EDSEX 11:13 → C.EDB 11:14 → C.2T 15:17
PROVIDERS: ADMIT Hospitalist; ATTEND Internal Medicine
DX: R55 Syncope and collapse (principal); D64.9 Anemia, unspecified; E03.9 Hypothyroidism, unspecified; E78.5 Hyperlipidemia, unspecified; F10.10 Alcohol abuse, uncomplicated; I25.10 Atherosclerotic heart disease of native coronary artery without angina pectoris; I95.1 Orthostatic hypotension; K21.9 Gastro-esophageal reflux disease without esophagitis; K44.9 Diaphragmatic hernia without obstruction or gangrene; N40.0 Benign prostatic hyperplasia without lower urinary tract symptoms; R19.7 Diarrhea, unspecified; Z79.4 Long term (current) use of insulin; Z87.891 Personal history of nicotine dependence; E10.9 Type 1 diabetes mellitus without complications; Z96.649 Presence of unspecified artificial hip joint

== ENCOUNTER → 2016-07-30 | Day surgery (SDC) | payer OTHER ==
[2016-07-29 10:49] VITALS: BMI 35.0
[~2016-07-30] VITALS: Ht 180.3 cm; Wt 113.6 kg
[~2016-07-30] MED LIST changes: +ADVIN25050 INH; +ALBUAER INH; -ALBUAER19 INH; -AMLO10TA2 PO; +CEPH500C2 PO; +CLOP1TAB15 PO; +CZR25 PO; -CZR50 PO; +FRRS300 PO; -FURO-85 PO; +FURO40TA3 PO; +INSDGIPEN SC; +LIDOCAINE HCL 2% 2 ML VIAL (20MG/ML) ONE; -LPR25 PO; +MAGN400T5 PO; +METO25TA56 PO; +MULT-513 PO; -MULT-589 PO; -PLV75 PO; +POTTAB2 PO; -PRLSR20 PO; +PROPOFOL IV EMULSION 10 MG/ML 20 ML VIAL IV ONE; +PRS5 PO; -PRZ/40 PO; +SPRIN INH; +VENL75CA73 PO; +ZNT/300 PO
[2016-07-30 10:20] VITALS: Ht 180.3 cm; Wt 113.6 kg
[2016-07-30 10:28] VITALS: TEMP 36.6
--- NOTE | 2016-07-30 12:05 | Endo History and Physical ---
History & Physical Date of Service: Jul 30, 2016. Chief Complaint: anemia Referring Physician: Dr. Bruce History of Present Illness Anemia Past Medical History Diabetes, Male Genitourinary Prob., Hypertension, COPD Past Surgical History Hx Cardiac Surgery: Yes (HEART CATH, NO STENTS) Hx Internal Defibrillator: No Hx Pacemaker: No Hx Abdominal Surgery: No Hx of Implantable Prosthesis: No Hx Post-Op Nausea and Vomiting: No Hx Cancer Surgery: No Hx Thoracic Surgery: No Hx Orthopedic: Yes (RT SHANNAN) Hx Urinary Tract Surgery: No Family History None Social History Smoking Status: Former Smoker Hx Substance Use: No Hx Alcohol Use: Yes ([employer]/DAY) Allergies Coded Allergies: DEIDRE Inhibitors (Verified Allergy, Unknown, COUGH, 07/30/16) Current Medications Reported Home Medications Medications Dose Route/Sig Max Daily Dose Days Date Category Dose Instructions Plavix (Clopidogrel Bisulfate) 75 Mg Tab 75 Mg PO QAM 07/29/16 Reported Venlafaxine Extended Rel (Venlafaxine Hcl) 75 Mg Cap 2 Tabs PO QAM 07/29/16 Reported Proventil Hfa (Albuterol Sulfate) 108 Mcg/Act Aer 2 Puffs INH QID 07/29/16 Reported Lasix (Furosemide) 40 Mg Tab 40 Mg PO QAM 07/29/16 Reported Phospha 250 Neutral (Pot Phosphate Monobasic W/ Sod) 1 Tab Tab 3 Tab PO BID 07/18/16 Reported Mvi With Minerals (Multivitamins/Minerals) Tab 1 Tab PO QAM 07/18/16 Reported Vitamin B-1 (Thiamine HCl) 100 Mg Tab 1 Tab PO QAM 07/18/16 Reported Folic Acid 1 Mg Tab 1 Tab PO QAM 07/18/16 Reported Spiriva Handihaler (Tiotropium [place]) 5 Puff/90 Mcg Aerp 1 Puff INH QAM 07/18/16 Reported Finasteride 5 Mg Tab 1 Tab PO QAM 07/18/16 Reported Mag-Ox (Magnesium Oxide) 400 Mg Tab 400 Mg PO BID 07/18/16 Reported Ranitidine HCl 300 Mg Tab 1 Tab PO BID 07/18/16 Reported Losartan Potassium 25 Mg Tab 1 Tab PO QAM 07/18/16 Reported Advair Diskus 250-50 Mcg/Dose (Fluticasone Prop/Salmeterol) 14 Puff/1 Inhaler Aerp 1 Puff INH BID 07/18/16 Reported Novolog (Insulin Aspart) Inj 0 SC TID 07/17/16 Reported INJECT 1 UNIT PER 10 CARBOHYDRATES PER SLIDING SCALE. MAXIMUM 100 UNITS PER DAY. CORRECTION FACTOR OF 30MG/DL/UNIT Lopressor (Metoprolol Tartrate) 25 Mg Tab 3 Tab PO BID 07/17/16 Reported Lantus Solostar (Insulin Glargine) 100 Unit/Ml Inj 70 Units SC QAM 07/17/16 Reported Flomax (Tamsulosin Hcl) 0.4 Mg Cap 0.4 Mg PO HS 08/08/15 Reported Aspirin Ec (Aspirin) 81 Mg Tab 81 Mg PO QAM 08/08/15 Reported Glucophage (Metformin Hcl) 500 Mg Tab 2 Tabs PO BID 08/08/15 Reported Potassium Chloride Er (Potassium Chloride Microencaps) 20 Meq Tab 20 Meq PO QAM 08/08/15 Reported Lipitor (Atorvastatin) 40 Mg Tab 40 Mg PO QAM 08/08/15 Reported Levothyroxine Sodium 125 Mcg Tab 125 Mcg PO QAM 08/08/15 Reported Vital Signs Weight (Kilograms): 113.64 Height (Feet): 5 Height (Inches): 11 Date Time Temp Pulse Resp B/P Pulse Ox O2 Delivery O2 Flow Rate FiO2 07/30/16 10:28 36.6 69 20 156/91 98 Room Air Physical Exam General Appearance: no apparent distress Respiratory/Chest: Respiratory effort: no dyspnea Auscultation: breath sounds normal Cardiovascular: Heart Auscultation: RRR Abdomen: Inspection & Palpation: soft Assessment and Plan Anemia - EGD, cscopy
--- NOTE | 2016-07-30 12:48 | GI REPORT ---
Procedure Date: 07/30/2016 11:57 AM Procedure: Upper GI endoscopy Indications: Iron deficiency anemia Medicines: See the Anesthesia note for documentation of the administered medications Complications: No immediate complications. Estimated Blood Loss: Estimated blood loss: none. Procedure: Pre-Anesthesia Assessment: - ASA Grade Assessment: III - A patient with severe systemic disease. After obtaining informed consent, the endoscope was passed under direct vision. Throughout the procedure, the patient's blood pressure, pulse, and oxygen saturations were monitored continuously. The scope was introduced through the mouth, and advanced to the second part of duodenum. The upper GI endoscopy was accomplished without difficulty. The patient tolerated the procedure well. Findings: LA Grade C (one or more mucosal breaks continuous between tops of 2 or more mucosal folds, less than 75% circumference) esophagitis with no bleeding was found. A mild Schatzki ring (acquired) was found at the gastroesophageal junction. A large hiatus hernia was present. GE junction was at 35 cm. The stomach was normal. Biopsies were taken with a cold forceps for histology. The examined duodenum was normal. Biopsies were taken with a cold forceps for histology. Impression: - LA Grade C reflux esophagitis. - Mild Schatzki ring. - Large hiatus hernia. - Normal stomach. Biopsied. - Normal examined duodenum. Biopsied. Recommendation: - Discharge patient to home. Charity Lizarraga M.D. Charity Lizarraga MD 07/30/2016 12:48:05 PM This report has been signed electronically. Note Initiated On: 07/30/2016 11:57 AM I attest to the content of the Intraoperative Record and orders documented therein, exceptions below
--- NOTE | 2016-07-30 12:54 | Discharge Instructions ---
Endoscopy Patient Instructions Date / Procedure(s) Performed Jul 30, 2016. Colonoscopy, EGD Allergy Information Coded Allergies: DEIDRE Inhibitors (Verified Allergy, Unknown, COUGH, 07/30/16) Discharge Date / Findings Jul 30, 2016. Colon polyp, esophagitis Medication Instructions Stopped Medication(s): plavix stopped, last took was . Restart Stopped Medication(s): Resume Plavix tomorrow. Provider Instructions Activity Restrictions - No exercising or heavy lifting for 24 hours. - Do not drink alcohol the day of the procedure. - Do not drive a car or operate machinery until the day after the procedure. - Do not make any important decisions or sign important papers in 24 hours after the procedure. Following Day: - Return to full activity which may include returning to work/school. Diet Start your diet with liquids and light foods (jello, soup, juice, toast). Then eat your usual diet if not nauseated. Treatment For Common After Affects For mild abdominal pain, bloating, or excessive gas: - Rest - Eat lightly - Lie on right side Follow-Up Information Follow-up with Dr. Bruce as scheduled Anesthesia Information What You Should Know You have had a procedure that required some medicine to reduce anxiety and discomfort. This treatment is called moderate sedation. After receiving the treatment, you may be sleepy, but you will be able to breathe on your own. The effects of the treatment may last for several hours. Follow these instructions along with Activity/Diet recommendations noted above: * Do NOT do anything where dizziness or clumsiness would be dangerous. * Rest quietly at home today, then you can be up and about tomorrow. * Have a responsible person stay with you the rest of today. * You may have had an I.V. today. If so, you may take the dressing off later today. Recommendations Call your doctor if: * Trouble breathing * Continuous vomiting for more than 24 hours * Temperature above 101 degrees * Severe abdominal pain or bloating * Pain not relieved by pain medicine ordered * There is increased drainage or redness from any incision * A large amount of rectal bleeding greater than 2-3 tablespoons. (If you had a polyp/s removed or have hemorrhoids, a small amount of blood - from the rectum is to be expected.) * You have any unanswered questions or concerns. IN THE EVENT OF A SERIOUS EMERGENCY, GO TO THE NEAREST EMERGENCY ROOM Your discharge instructions were prepared by provider Charity Alberts. Patient Instructions Signature Page Damon Hatfield Patient (or Guardian) Signature/Date: I have read and understand the instructions given to me by my caregivers. Caregiver/RN/Doctor Signature/Date: The above-named patient and/or guardian has received patient instructions on this date. + Original Patient Signature Page (only) stays with chart. Please make copy for patient.
[2016-07-30 13:10] VITALS: BP 141/85; PULSE 66; O2SAT 97
--- NOTE | 2016-07-30 13:38 | Anesthesiology Progress Note ---
Anesthesia Post Op Note Date & Time Jul 30, 2016 at 13:38 Vital Signs Pain Intensity: 0 Vital Signs Past 12 Hours Date Time Temp Pulse Resp B/P Pulse Ox O2 Delivery O2 Flow Rate FiO2 07/30/16 13:10 66 18 141/85 97 Room Air 07/30/16 12:55 66 18 135/78 95 Room Air 07/30/16 12:43 68 18 137/78 96 Room Air 07/30/16 10:28 36.6 69 20 156/91 98 Room Air Notes Mental Status: alert / awake / arousable, participated in evaluation Pt Amnestic to Procedure: Yes Nausea / Vomiting: adequately controlled Pain: adequately controlled Airway Patency, RR, SpO2: stable & adequate BP & HR: stable & adequate Hydration State: stable & adequate Anesthetic Complications: no major complications apparent
== END | disposition home or self-care (01) ==
LOC: C.GI 09:42
PROVIDERS: ATTEND Internal Medicine Gastroenterology
DX: D50.9 Iron deficiency anemia, unspecified (principal); K29.70 Gastritis, unspecified, without bleeding; D12.3 Benign neoplasm of transverse colon; K22.2 Esophageal obstruction; K44.9 Diaphragmatic hernia without obstruction or gangrene; K21.0 Gastro-esophageal reflux disease with esophagitis; E11.9 Type 2 diabetes mellitus without complications; I10 Essential (primary) hypertension; J44.9 Chronic obstructive pulmonary disease, unspecified; Z87.891 Personal history of nicotine dependence; Z88.8 Allergy status to other drugs, medicaments and biological substances

== ENCOUNTER 2017-09-27 06:56 | Inpatient (IN) | payer OTHER ==
[~2017-09-27] VITALS: Ht 177.8 cm; Wt 115.1 kg
[2017-09-27] VITALS (7 sets, daily range): BP systolic 150–177; BP diastolic 91–92; PULSE 59–80; TEMP 36.5–36.9; O2SAT 95–97; BMI 35.5
[~2017-09-27 06:56] MED LIST changes: -ADVIN25050 INH; -ALBUAER INH; -CEPH500C2 PO; -LEVO125T4 PO; +LEVO125T5 PO; -LIDOCAINE HCL 2% 2 ML VIAL (20MG/ML) ONE; -POTTAB2 PO; -PROPOFOL IV EMULSION 10 MG/ML 20 ML VIAL IV ONE; -SPRIN INH
[2017-09-27] MEDS ORDERED: DIAZEPAM 5MG TAB PO STA (07:11)
[2017-09-27] MEDS ORDERED: METOPROLOL TARTRATE 50 MG TAB PO STA (07:11)
[2017-09-27] MEDS ORDERED: LOSARTAN POTASSIUM 25 MG TAB PO STA (07:11)
[2017-09-27] MEDS ORDERED: MULTI-VITAMIN INFUSION INJ 10 ML, THIAMINE HCL INJ 100 MG, FoLIC ACID INJ 1 MG in SODIU... IV ONE (07:15)
[2017-09-27 07:21] LABS: BASO % 0.5 %; BASO ABS # 0.05 K/uL (0-0.2); EOS % 1.1 %; HEMATOCRIT 34.9 % (42-52); HEMOGLOBIN 11.5 g/dL (14.0-18.0); IG# 0.04 K/uL (0.00-0.02); LYMPH % 6.5 %; LYMPH ABS # 0.59 K/uL (1.2-3.4); MEAN CELL VOLUME 99.7 fL (80-100); MEAN CORPUSCULAR HEMOGLOBIN 32.9 pg (25-34); MEAN PLATELET VOLUME 9.7 fL (7.4-10.4); MONO % 8.1 %; MONO ABS # 0.74 K/uL (0.11-0.59); NEUT % 83.4 %; NEUT ABS # 7.59 K/uL (1.4-6.5); PLATELET COUNT 237 K/uL (130-400); RED CELL DISTRIBUTION WIDTH CV 15.2 % (11.5-14.5); RED CELL DISTRIBUTION WIDTH SD 55.2 fL (36.4-46.3); WHITE BLOOD COUNT 9.11 K/uL (4.8-10.8)
--- NOTE | 2017-09-27 07:26 | EMERGENCY ROOM VISIT NOTE ---
History Report prepared by [place]: Karla Ramirez Under the Supervision of: Dr. Jennifer Oseguera M.D. First contact with patient: 06:59 Chief Complaint: ALTERED MENTAL STATUS Stated Complaint: AMS History of Present Illness The patient is a 62 year old male who presents to the Emergency Room with complaints of constant altered mental status beginning [employer]. The patient has a history of seizures and IDDM. He states that he has not had a seizure in years. He does not take medication for seizures. told the medics that she felt the patient moving around strangely in bed this morning and thought that he might be having a seizure. She thought that his BSG might also be low. She gave him some cake icing and called EMS. When EMS arrived the patient's BSG was 63. He was given oral glucose but vomited afterwards so he was given D-10 en route. The patient's BSG was 165 upon arrival in the ED. He is currently complaining of a headache and fatigue. He rates his pain as a 4/10 in severity. The patient states that he was feeling fine yesterday. He took his normal dose of insulin before bed. He does not remember what happened this morning. He denies any recent trauma, fall, or head injury. He reports drinking about "a pint of liquor " per day. Source of History: patient, spouse/significant other, EMS Onset: [employer] Position: head Symptom Intensity: 4/10 Quality: ache (headache) Timing: constant Associated Symptoms: + vomiting, + fatigue Review of Systems See HPI for pertinent positives & negatives. A total of 10 systems reviewed and were otherwise negative. Past Medical & Surgical Medical Problems: (1) Alcohol dependence (2) Aortic root enlargement (3) BPH (benign prostatic hyperplasia) (4) CAD (coronary artery disease) (5) COPD (chronic obstructive pulmonary disease) (6) Dyslipidemia (7) GERD (gastroesophageal reflux disease) (8) HTN (hypertension) (9) Hyponatremia (10) Hypothyroidism (11) NSTEMI (non-ST elevated myocardial infarction) (12) CHANTELL (obstructive sleep apnea) (13) Type 1 diabetes Surgical Problems: (1) History of hip replacement (2) History of tonsillectomy and adenoidectomy Family History No pertinent family history Social History Smoking Status: Former Smoker Alcohol Use: heavy Drug Use: none Marital Status: Housing Status: lives with family Occupation Status: employed Current/Historical Medications Scheduled Aspirin (Aspirin Ec), 81 MG PO QAM Atorvastatin (Lipitor), 40 MG PO QAM Clopidogrel (Plavix), 75 MG PO QAM Ferrous Sulfate (Ferrous Sulfate), 325 MG PO DAILY Finasteride (Finasteride), 5 MG PO QAM Folic Acid (Folic Acid), 1 MG PO QAM Furosemide (Lasix), 40 MG PO QAM Insulin Glargine (Lantus Solostar), 85 UNITS SC QAM Insulin Glargine (Lantus Solostar), 15 UNITS SC QPM Levothyroxine Sodium (Levothyroxine Sodium), 125 MCG PO QAM Losartan Potassium (Losartan Potassium), 25 MG PO QAM Magnesium Oxide (Mag-Ox), 400 MG PO BID Metformin Hcl (Glucophage), 1,000 MG PO BID Metoprolol Succ (Toprol Xl) (Toprol-Xl ), 100 MG PO DAILY Multivitamins/Minerals (Mvi With Minerals), 1 TAB PO QAM Potassium Chloride Microencaps (Potassium Chloride Er), 20 MEQ PO QAM Ranitidine HCl (Ranitidine HCl), 300 MG PO BID Tamsulosin Hcl (Flomax), 0.4 MG PO HS Thiamine HCl (Vitamin B-1), 100 MG PO QAM Venlafaxine Hcl (Venlafaxine Extended Rel), 3 TABS PO QAM Scheduled PRN Insulin Aspart (Novolog Flexpen), 1 DOSE SC AC PRN for SLIDING SCALE Allergies Coded Allergies: DEIDRE Inhibitors (Verified Allergy, Unknown, COUGH, 09/27/17) Physical Exam Vital Signs Date Time Temp Pulse Resp B/P (MAP) Pulse Ox O2 Delivery O2 Flow Rate FiO2 09/27/17 10:11 57 18 173/110 96 09/27/17 10:06 58 18 95 09/27/17 10:02 148/78 09/27/17 09:36 60 15 92 09/27/17 09:06 68 15 94 09/27/17 09:01 165/107 09/27/17 08:49 78 16 99 Room Air 09/27/17 08:19 82 21 96 Room Air 09/27/17 07:49 94 17 92 Room Air 09/27/17 07:44 155/100 93 Room Air 09/27/17 07:26 87 20 91 Room Air 09/27/17 07:10 159/110 09/27/17 07:07 84 09/27/17 07:06 36.4 78 22 180/107 95 Room Air 09/27/17 07:04 96 Room Air 09/27/17 07:00 180/107 Physical Exam Vital signs reviewed. General: Well-appearing male, in no significant distress. HEENT: No scleral icterus, PERRLA, neck supple. Atraumatic. Cardiovascular: Regular rate and rhythm, no extra sounds. Pulmonary: Clear to auscultation bilaterally, normal work of breathing. Abdomen: Soft, obese, nontender, nondistended, positive bowel sounds. Musculoskeletal: Atraumatic, no peripheral edema. Neurologic: Patient awake alert aware of year and month, unable to recall events preceding visit. Full strength in all 4 extremities. Cranial nerves 2 through 12 grossly intact. Skin: Warm, dry, no rash Medical Decision & Procedures ER Provider Diagnostic Interpretation: Radiology results as stated below per my review and radiologist interpretation: CT SCAN OF THE BRAIN WITHOUT IV CONTRAST CLINICAL HISTORY: Change in mental status. COMPARISON STUDY: CT of the brain dated 08/08/2015. TECHNIQUE: Unenhanced axial CT scan of the brain is performed from the vertex to the skull base. A dose lowering technique was utilized adhering to the principles of ALARA. CT DOSE: 687.98 mGy.cm FINDINGS: Brain parenchyma: There are age-related involutional changes noting minimal subcortical and periventricular microangiopathic change. There is no hemorrhage, mass effect, or evidence of acute territorial ischemia by CT criteria. Hartman-white matter is preserved. No extra-axial fluid collection is seen. Ventricles, sulci, cisterns: Prominent secondary to involutional change. Intracranial vasculature: There is mild atherosclerotic calcification of the cavernous carotid and vertebral arteries. Calvarium: Unremarkable. Sinuses and mastoids: There is subtotal opacification of the right maxillary antrum with an air-fluid level. Fluid is also seen in the sphenoid sinuses. There is complete opacification of the frontal and several right-sided ethmoid sinuses. Trace mucosal thickening is seen in the left maxillary antrum. Thickening and sclerosis of the right maxillary sinus wall suggests chronicity. Trace mastoid effusions are identified. Orbits: The bony orbits are grossly intact. IMPRESSION: 1. There is no hemorrhage, mass effect, or evidence of acute territorial ischemia by CT criteria. 2. Pansinusitis as above. Electronically signed by: Kwaku Collazo M.D. 09/27/2017 8:15 AM Dictated Date/Time: 09/27/2017 8:12 AM CHEST ONE VIEW PORTABLE CLINICAL HISTORY: Acute change in mental status COMPARISON STUDY: July 17, 2016 FINDINGS: The heart is enlarged. There is a retrocardiac opacity consistent with a hiatal hernia. There is no failure. There is no focal pulmonary consolidation. There are no pleural effusions. There are old left-sided rib deformities.[ IMPRESSION: Cardiomegaly. Hiatal hernia. No acute findings. Electronically signed by: Rich Abreu M.D. 09/27/2017 7:32 AM Dictated Date/Time: 09/27/2017 7:25 AM Laboratory Results Test 09/27/17 07:03 09/27/17 07:05 09/27/17 07:34 Lipase 176 U/L (73-393) Thyroid Stimulating Hormone (TSH) 5.400 uIu/ml (0.300-4.500) Free Thyroxine 0.80 ng/dl (0.80-1.60) RDW Standard Deviation 55.2 fL (36.4-46.3) RDW Coefficient of Variation 15.2 % (11.5-14.5) White Blood Count 9.11 K/uL (4.8-10.8) Red Blood Count 3.50 M/uL (4.7-6.1) Hemoglobin 11.5 g/dL (14.0-18.0) Hematocrit 34.9 % (42-52) Mean Corpuscular Volume 99.7 fL (80-100) Mean Corpuscular Hemoglobin 32.9 pg (25-34) Mean Corpuscular Hemoglobin Concent 33.0 g/dl (32-36) Platelet Count 237 K/uL (130-400) Mean Platelet Volume 9.7 fL (7.4-10.4) Neutrophils (%) (Auto) 83.4 % Lymphocytes (%) (Auto) 6.5 % Monocytes (%) (Auto) 8.1 % Eosinophils (%) (Auto) 1.1 % Basophils (%) (Auto) 0.5 % Neutrophils # (Auto) 7.59 K/uL (1.4-6.5) Lymphocytes # (Auto) 0.59 K/uL (1.2-3.4) Monocytes # (Auto) 0.74 K/uL (0.11-0.59) Eosinophils # (Auto) 0.10 K/uL (0-0.5) Basophils # (Auto) 0.05 K/uL (0-0.2) Immature Granulocyte % (Auto) 0.4 % Immature Granulocyte # (Auto) 0.04 K/uL (0.00-0.02) Prothrombin Time 10.7 SECONDS (9.0-12.0) Prothromb Time International Ratio 1.0 (0.9-1.1) Activated Partial Thromboplast Time 25.0 SECONDS (21.0-31.0) Partial Thromboplastin Ratio 1.0 Total Creatine Kinase 267 U/L (39-308) Procalcitonin < 0.05 ng/ml (0-0.5) Ethyl Alcohol mg/dL < 3.0 mg/dl (0-3) Laboratory results per my review. Medications Administered Medications (Trade) Dose Ordered Sig/Shante Route Start Time Stop Time Status Last Admin Dose Admin Metoprolol Tartrate (Lopressor Tab) 75 mg NOW STAT PO 09/27/17 07:11 09/27/17 07:15 DC 09/27/17 07:44 75 MG Losartan Potassium (coZAAR TAB) 25 mg NOW STAT PO 09/27/17 07:11 09/27/17 07:15 DC 09/27/17 07:43 25 MG Diazepam (Valium Tab) 5 mg NOW STAT PO 09/27/17 07:11 09/27/17 07:15 DC 09/27/17 07:44 5 MG Multivitamins 10 ml/Thiamine HCl 100 mg/Folic Acid 1 mg/Sodium Chloride 1,011.2 ml @ 500 mls/ hr Q2H2M ONCE IV 09/27/17 07:15 09/27/17 09:16 DC 09/27/17 07:44 500 MLS/HR ECG Per My Interpretation Indication: other Rate (beats per minute): 92 Rhythm: normal sinus Findings: no acute ischemic change, no ectopy, other (T-wave abnormality inferior leads) ED Course 0659: Past medical records reviewed. The patient was evaluated in room B6. A complete history and physical examination was performed. 0711: Diazepam 5 mg PO, Losartan potassium 25 mg PO, Lopressor 75 mg PO 0715: Multivitamins 10 ml/Thiamine HCl 100 mg/Folic Acid 1 mg/Sodium Chloride 1011.2 ml @ 500 mls/hr IV 0955: I reassessed the patient at this time. He is feeling better and resting comfortably. I discussed the results and treatment plan with the patient and his . I answered all pertaining questions that they had. They expressed understanding and verbalized agreement. 1004: I spoke with Angelica Botello PA-C. We discussed the patient's case. [facility] Medical Decision Differential diagnosis: Etiologies such as infection, hypoglycemia, electrolyte abnormalities, cardiac sources, intracerebral event, trauma, toxicologic, neurologic, as well as others were entertained. This patient was evaluated and appeared to be in no significant distress. He is somewhat confused but able to state 2018. He is not able to recount the events preceding the visit however he does state that he drinks a pint of liquor a day. His is adamant that this is not the case, she does not believe alcohol is a problem for him. Patient was given a banana bag, 75 mg of oral metoprolol tartrate and 25 mg of losartan, his home medications. He did receive 5 mg of p.o. Valium for the potential alcohol withdrawal. CT scan of the head was performed and is negative for acute abnormality. Patient's blood sugar has remained stable. Is unclear at this time if the patient had a hypoglycemic event or more likely an alcohol withdrawal seizure. There is some inconsistency in the history taking. Patient will be evaluated by the hospitalist service for further management. Patient has are aware of the plan and agree. Medication Reconcilliation Current Medication List: was personally reviewed by me Blood Pressure Screening Patient's blood pressure: Elevated blood pressure Blood pressure disposition: Elevated BP felt to be situational Consults Time Called: 1001 Consulting Physician: Angelica Botello PA-C Returned Call: 1004 I spoke with Angelica Botello PA-C. We discussed the patient's case. The patient will be evaluated by the [facility] Group for further management. Impression Primary Impression: Seizure Additional Impressions: IDDM (insulin dependent diabetes mellitus) Alcohol dependence Scribe Attestation The scribe's documentation has been prepared under my direction and personally reviewed by me in its entirety. I confirm that the note above accurately reflects all work, treatment, procedures, and medical decision making performed by me. Departure Information Dispostion Being Evaluated By Hospitalist Referrals Laila Bruce M.D. (PCP) Patient Instructions [facility] Problem Qualifiers
--- NOTE | 2017-09-27 07:34 | DIAGNOSTIC IMAGING REPORT ---
CHEST ONE VIEW PORTABLE CLINICAL HISTORY: Acute change in mental status COMPARISON STUDY: July 17, 2016 FINDINGS: The heart is enlarged. There is a retrocardiac opacity consistent with a hiatal hernia. There is no failure. There is no focal pulmonary consolidation. There are no pleural effusions. There are old left-sided rib deformities.[ IMPRESSION: Cardiomegaly. Hiatal hernia. No acute findings. Electronically signed by: Rich Abreu M.D. 09/27/2017 7:32 AM Dictated Date/Time: 09/27/2017 7:25 AM
[2017-09-27 07:37] LABS: ALT/SGPT 28 U/L (12-78); AST/SGOT 39 U/L (15-37); BLOOD UREA NITROGEN 9 mg/dl (7-18); CALCIUM 8.6 mg/dl (8.5-10.1); CARBON DIOXIDE 26 mmol/L (21-32); CREATININE 1.11 mg/dl (0.60-1.40); GLUCOSE 177 mg/dl (70-99); POTASSIUM 3.7 mmol/L (3.5-5.1); SODIUM 134 mmol/L (136-145)
[2017-09-27 07:39] LABS: ALKALINE PHOSPHATASE 123 U/L (45-117); TOTAL PROTEIN 7.6 gm/dl (6.4-8.2)
--- NOTE | 2017-09-27 08:16 | DIAGNOSTIC IMAGING REPORT ---
CT SCAN OF THE BRAIN WITHOUT IV CONTRAST CLINICAL HISTORY: Change in mental status. COMPARISON STUDY: CT of the brain dated 08/08/2015. TECHNIQUE: Unenhanced axial CT scan of the brain is performed from the vertex to the skull base. A dose lowering technique was utilized adhering to the principles of ALARA. CT DOSE: 687.98 mGy.cm FINDINGS: Brain parenchyma: There are age-related involutional changes noting minimal subcortical and periventricular microangiopathic change. There is no hemorrhage, mass effect, or evidence of acute territorial ischemia by CT criteria. Hartman-white matter is preserved. No extra-axial fluid collection is seen. Ventricles, sulci, cisterns: Prominent secondary to involutional change. Intracranial vasculature: There is mild atherosclerotic calcification of the cavernous carotid and vertebral arteries. Calvarium: Unremarkable. Sinuses and mastoids: There is subtotal opacification of the right maxillary antrum with an air-fluid level. Fluid is also seen in the sphenoid sinuses. There is complete opacification of the frontal and several right-sided ethmoid sinuses. Trace mucosal thickening is seen in the left maxillary antrum. Thickening and sclerosis of the right maxillary sinus wall suggests chronicity. Trace mastoid effusions are identified. Orbits: The bony orbits are grossly intact. IMPRESSION: 1. There is no hemorrhage, mass effect, or evidence of acute territorial ischemia by CT criteria. 2. Pansinusitis as above. Electronically signed by: Kwaku Collazo M.D. 09/27/2017 8:15 AM Dictated Date/Time: 09/27/2017 8:12 AM
[2017-09-27] MEDS ORDERED: INSDGIPEN SC (09:24)
[2017-09-27] MEDS ORDERED: NVLGIPEN SC (09:24)
[2017-09-27] MEDS ORDERED: METF-384 PO (09:24)
[2017-09-27] MEDS ORDERED: METO100T44 PO (09:24)
--- NOTE | 2017-09-27 11:10 | History and Physical ---
History & Physical Date & Time of Service: Sep 27, 2017 at 11:10 Chief Complaint: AMS Primary Care Physician: Laila Bruce M.D. History of Present Illness Source: patient, clinic records, hospital records Patient is a 62-year-old male with a PMH of Type I DM, remote seizure history, alcohol dependence, CAD (h/o NSTEMI), HTN and other medical problems listed below who presents after a seizure episode this morning. Per , she was awakened early this AM to the patient convulsing. Episode lasted 30 seconds and patient was altered afterwards. She thought his blood sugar might be low so she gave cake icing. EMS arrived and patient's BSG was 63. He was given oral glucose but vomited afterwards so he was given D-10 en route. Patient knew his name and family members names but was incorrect and identifying the current president and could not state his children's ages. Does not remember any of the events of this morning. When arrived in the ED 2 hours following episode, patient's mental status was back to baseline. Patient has a history of alcohol dependence and endorses drinking 1/2 pint of liquor daily. Last drink was around 7 PM last night. Denies history of seizures in the setting of alcohol withdrawal. Struggles with medical non-compliance and states that he does not take his morning medications 3x/ week on average. Takes Lantus consistently. Reports that last seizure was ~5 years ago and was precipitated by dehydration during a hot day. Denies ever taking anti- epileptic medication in the past. Does not currently see a neurologist. PCP is Dr. Bruce. Currently endorses a dull headache but denies fever, chills, lightheadedness, near syncope, confusion, visual changes, chest pain, SOB, abdominal pain, nausea, vomiting, bowel or bladder changes or LE swelling. Past Medical/Surgical History Medical Problems: (1) Alcohol dependence Status: Chronic (2) Aortic root enlargement Status: Chronic (3) BPH (benign prostatic hyperplasia) Status: Chronic (4) CAD (coronary artery disease) Status: Chronic (5) COPD (chronic obstructive pulmonary disease) Status: Chronic (6) Dyslipidemia Status: Chronic (7) GERD (gastroesophageal reflux disease) Status: Chronic (8) HTN (hypertension) Status: Chronic (9) Hyponatremia Status: Chronic (10) Hypothyroidism Status: Chronic (11) NSTEMI (non-ST elevated myocardial infarction) Status: Chronic (12) CHANTELL (obstructive sleep apnea) Status: Chronic (13) Type 1 diabetes Status: Chronic Surgical Problems: (1) History of hip replacement Status: Chronic (2) History of tonsillectomy and adenoidectomy Status: Chronic Family History No pertinent family history Social History Smoking Status: Former Smoker Drug Use: none Marital Status: Housing status: lives with significant other Occupational Status: employed Immunizations History of Influenza Vaccine: Yes Influenza Vaccine Date: Feb 06, 2016 History of Tetanus Vaccine?: Yes Tetanus Immunization Date: Mar 15, 2009 History of Pneumococcal: Yes Pneumococcal Date: Feb 21, 2016 Allergies Coded Allergies: DEIDRE Inhibitors (Verified Allergy, Unknown, COUGH, 09/27/17) Home Medications Scheduled Aspirin (Aspirin Ec), 81 MG PO QAM Atorvastatin (Lipitor), 40 MG PO QAM Clopidogrel (Plavix), 75 MG PO QAM Ferrous Sulfate (Ferrous Sulfate), 325 MG PO DAILY Finasteride (Finasteride), 5 MG PO QAM Folic Acid (Folic Acid), 1 MG PO QAM Furosemide (Lasix), 40 MG PO QAM Insulin Aspart (Novolog Flexpen), 15 UNITS SC TIDM Insulin Glargine (Lantus Solostar), 20 UNITS SC QAM Insulin Glargine (Lantus Solostar), 20 UNITS SC QPM Levothyroxine Sodium (Levothyroxine Sodium), 125 MCG PO QAM Losartan Potassium (Losartan Potassium), 50 MG PO QAM Magnesium Oxide (Mag-Ox), 400 MG PO BID Metoprolol Succ (Toprol Xl) (Toprol-Xl ), 100 MG PO DAILY Multivitamins/Minerals (Mvi With Minerals), 1 TAB PO QAM Potassium Chloride Microencaps (Potassium Chloride Er), 20 MEQ PO QAM Ranitidine HCl (Ranitidine HCl), 300 MG PO BID Tamsulosin Hcl (Flomax), 0.4 MG PO HS Thiamine HCl (Vitamin B-1), 100 MG PO QAM Venlafaxine Hcl (Venlafaxine Extended Rel), 3 TABS PO QAM Review of Systems Ten systems reviewed and negative except as noted in the HPI. Physical Exam Vital Signs Date Time Temp Pulse Resp B/P (MAP) Pulse Ox O2 Delivery O2 Flow Rate FiO2 09/27/17 10:30 96 Room Air 09/27/17 10:16 59 09/27/17 10:11 57 18 173/110 96 09/27/17 10:06 58 18 95 09/27/17 10:02 148/78 09/27/17 09:36 60 15 92 09/27/17 09:06 68 15 94 09/27/17 09:01 165/107 09/27/17 08:49 78 16 99 Room Air 09/27/17 08:19 82 21 96 Room Air 09/27/17 07:49 94 17 92 Room Air 09/27/17 07:44 155/100 93 Room Air 09/27/17 07:26 87 20 91 Room Air 09/27/17 07:10 159/110 09/27/17 07:07 84 09/27/17 07:06 36.4 78 22 180/107 95 Room Air 09/27/17 07:04 96 Room Air 09/27/17 07:00 180/107 General Appearance: WD/WN, no apparent distress Head: normocephalic, atraumatic Eyes: normal inspection, PERRL, sclerae normal ENT: normal ENT inspection, hearing grossly normal, pharynx normal Neck: supple, thyroid normal, trachea midline Respiratory/Chest: chest non-tender, lungs clear, normal breath sounds, no respiratory distress, no accessory muscle use Cardiovascular: regular rate, rhythm, no murmur, normal peripheral pulses Abdomen/GI: non tender, soft, no organomegaly Back: normal inspection Extremities/Musculoskelatal: normal inspection, no calf tenderness, no pedal edema, + pertinent finding (LLE varicose veins ) 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, no motor/sensory deficits, alert, normal mood/affect, oriented x 3 Skin: normal color, warm/dry, no rash Diagnostics Laboratory Results Results Past 24 Hours Test 09/27/17 07:00 09/27/17 07:05 09/27/17 07:34 Range/Units Bedside Glucose 174 70-99 mg/dl White Blood Count 9.11 4.8-10.8 K/uL Red Blood Count 3.50 4.7-6.1 M/uL Hemoglobin 11.5 14.0-18.0 g/dL Hematocrit 34.9 42-52 % Mean Corpuscular Volume 99.7 80-100 fL Mean Corpuscular Hemoglobin 32.9 25-34 pg Mean Corpuscular Hemoglobin Concent 33.0 32-36 g/dl Platelet Count 237 130-400 K/uL Mean Platelet Volume 9.7 7.4-10.4 fL Neutrophils (%) (Auto) 83.4 % Lymphocytes (%) (Auto) 6.5 % Monocytes (%) (Auto) 8.1 % Eosinophils (%) (Auto) 1.1 % Basophils (%) (Auto) 0.5 % Neutrophils # (Auto) 7.59 1.4-6.5 K/uL Lymphocytes # (Auto) 0.59 1.2-3.4 K/uL Monocytes # (Auto) 0.74 0.11-0.59 K/uL Eosinophils # (Auto) 0.10 0-0.5 K/uL Basophils # (Auto) 0.05 0-0.2 K/uL RDW Standard Deviation 55.2 36.4-46.3 fL RDW Coefficient of Variation 15.2 11.5-14.5 % Immature Granulocyte % (Auto) 0.4 % Immature Granulocyte # (Auto) 0.04 0.00-0.02 K/uL Prothrombin Time 10.7 9.0-12.0 SECONDS Prothromb Time International Ratio 1.0 0.9-1.1 Activated Partial Thromboplast Time 25.0 21.0-31.0 SECONDS Partial Thromboplastin Ratio 1.0 Sodium Level 134 136-145 mmol/L Potassium Level 3.7 3.5-5.1 mmol/L Chloride Level 101 98-107 mmol/L Carbon Dioxide Level 26 21-32 mmol/L Anion Gap 7.0 3-11 mmol/L Blood Urea Nitrogen 9 7-18 mg/dl Creatinine 1.11 0.60-1.40 mg/dl Est Creatinine Clear Calc Drug Dose 88.8 ml/min Estimated GFR () 83.2 Estimated GFR (Non- 71.8 BUN/Creatinine Ratio 7.8 10-20 Random Glucose 177 70-99 mg/dl Calcium Level 8.6 8.5-10.1 mg/dl Magnesium Level 1.9 1.8-2.4 mg/dl Total Bilirubin 0.3 0.2-1 mg/dl Direct Bilirubin < 0.1 0-0.2 mg/dl Aspartate Amino Transf (AST/SGOT) 39 15-37 U/L Alanine Aminotransferase (ALT/SGPT) 28 12-78 U/L Alkaline Phosphatase 123 45-117 U/L Total Creatine Kinase 267 39-308 U/L Total Protein 7.6 6.4-8.2 gm/dl Albumin 3.0 3.4-5.0 gm/dl Ethyl Alcohol mg/dL < 3.0 0-3 mg/dl Diagnostic Radiology CXR: IMPRESSION: Cardiomegaly. Hiatal hernia. No acute findings. CT head: IMPRESSION: 1. There is no hemorrhage, mass effect, or evidence of acute territorial ischemia by CT criteria. 2. Pansinusitis as above. EKG Normal sinus rhythm at 92 bpm. Normal EKG Impression Assessment and Plan Patient is a 62-year-old male with a PMH of Type I DM, remote seizure history, alcohol dependence, CAD (h/o NSTEMI), HTN and other medical problems listed below who presents after a seizure episode this morning. Seizure: -Witnessed by -Post ictal altered mental status, since resolved -Hypoglycemia, alcohol withdrawal possibly playing a role -Remote seizure history -Not on anti-epileptics -Does not follow with neurologist -Monitor on telemetry -Neuro consulted -EEG ordered -Seizure precautions -IVF resuscitation DM Type I: -Reported episode of hypoglycemia this AM -Received dextrose en route to ED -Pharm consulted for glycemic mgmt -BSG checks AC HS -A1c ordered Alcohol dependence: -Endorses drinking 1/2 pint daily -Last drink at 7pm last night -Withdrawal protocol -Banana bag, folic acid, thiamine HTN: -Elevated upon arrival to 180/110 -Did not take AM meds -Given Lopressor and losartan in ED -Cont home dose lasix, losartan, toprol -Monitor CAD: -H/o NSTEMI in 2016 -Cardiac cath performed at that time, with findings not amenable to PCI -Cont medical mgmt with baby aspirin, statin, plavix MDD: -Stable -Cont Effexor Hypothyroidism: -Cont synthroid HLD: -Cont statin GERD: -Cont H2 fer CHANTELL: -Cpap HS COPD: -Stable DVT Ppx: SQ heparin Code status: FULL PCP: Janis Dispo: Admitted to telemetry. Plan to return home once medically stable. Patient seen in collaboration with Dr. Ibrahim. Please see addendum. ATTENDING ADDENDUM: pt seen and examined care co ordinated with Angelica Botello PA-C 62 yo Male with Hx of ETOH type 1 diabetes, presented with seizure-like activity , noticed by in morning In the ER patient found to be alert and awake oriented, does not recall any of the events in the morning Remote history of seizure disorder-not on any antiseizure meds Does not follow with neurology Telemetry monitoring, EEG , seizure precaution Neurology eval requested Alcohol abuse/intoxication Patient has long history of heavy drinking last drink was yesterday evening Withdrawal protocol with Neurontin Ordered for banana bag, IV thiamine and folate As needed Ativan Full code Reny Ibrahim MD Advanced Directives Existing Living Will: No Existing Power of Broom Worker: No Resuscitation Status VTE Prophylaxis Will order VTE Prophylaxis: Yes
[2017-09-27] MEDS ORDERED: MULTI-VITAMIN INFUSION INJ 10 ML, THIAMINE HCL INJ 100 MG, FoLIC ACID INJ 1 MG in SODIU... IV SCH (11:30)
[2017-09-27] MEDS ORDERED: GLUCOSE 10 TABS/TUBE PO PRN (11:30)
[2017-09-27] MEDS ORDERED: NITROGLYCERIN 0.4 MG SL PER TAB CHARGE SL PRN (11:30)
[2017-09-27] MEDS ORDERED: DEXTROSE 50% 50 ML SYR IV PRN (11:30)
[2017-09-27] MEDS ORDERED: GLUCAGON FOR INJ 1 MG VIAL SQ PRN (11:30)
[2017-09-27] MEDS ORDERED: GABAPENTIN 600 MG TAB PO SCH (11:30)
[2017-09-27] MEDS ORDERED: LORAZEPAM 2 MG/ML 1 ML VIAL IV PRN (11:30)
[2017-09-27] MEDS ORDERED: ONDANSETRON INJ 2 MG/ML 2 ML VIAL IV PRN (11:30)
[2017-09-27] MEDS ORDERED: GLUCOSE 40% GEL 15 GM TUBE PO PRN (11:30)
[2017-09-27] MEDS ORDERED: ATORVASTATIN 20 MG TAB PO ONE (12:00)
[2017-09-27] MEDS ORDERED: ASPIRIN 81 MG ECTAB PO ONE (12:00)
[2017-09-27] MEDS ORDERED: PHARMACY GLYCEMIC MGMT CONSULT PRN (12:00)
[2017-09-27] MEDS ORDERED: LORAZEPAM INJ 1 MG in SYRINGE 0.5 ML IV PRN (13:15)
[2017-09-27] MEDS ORDERED: LORAZEPAM INJ 2 MG in SYRINGE 1 ML IV PRN (13:30)
[2017-09-27] MEDS ORDERED: LORAZEPAM INJ 3 MG in SYRINGE 1.5 ML IV PRN (13:30)
[2017-09-27] MEDS ORDERED: HydrALAZINE HCL 20 MG/ML VIAL ONE (13:46)
[2017-09-27] MEDS: HEPARIN SOD 5000 UNIT/0.5 ML CARP SQ SCH ×2 (13:56→21:10)
[2017-09-27] MEDS: SODIUM CHLORIDE 0.9% 1000ML 1,000 ML IV SCH (13:59)
[2017-09-27] MEDS ORDERED: GABAPENTIN 1200MG LOADING DOSE PO SCH (14:00)
--- NOTE | 2017-09-27 14:29 | Neurology Consultation ---
Neurology Consultation Date of Consultation: Sep 27, 2017. Attending Physician: Reny Ibrahim M.D. Primary Care Physician: Laila Bruce M.D. Reason for Consultation: seizure History of Present Illness Source: patient, spouse Damon is a 62 year old male with a PMH of Type I DM, remote seizure history, alcohol dependence, CAD (h/o NSTEMI), HTN, peripheral neuropathy, seizure episode this morning. was awakened this AM to the having stiffening of limbs and in a sweat. It lasted about 30 seconds and there was some confusion afterward but resolved by the time he arrived in the ED. She thought his blood sugar might be low so she gave cake icing. EMS BSG was 63. He was given oral glucose but vomited afterwards so he was given D-10 en route and on second check his blood sugar was int he 70s. Does not remember any of the events of this morning. He has a history of alcohol dependence and endorses drinking 1/2 pint of liquor daily. Last drink was around 7 PM last night. He has not been taking his BS levels and his states she never learned how to take a BS. He had a similar episode about 5 years ago and was precipitated by dehydration during a hot day. Denies fever, chills, lightheadedness, near syncope, confusion , visual changes, chest pain, SOB, abdominal pain, nausea, vomiting, bowel or bladder issue. Past Medical/Surgical History Medical Problems: (1) Alcohol dependence Status: Chronic (2) Elevated troponin Status: Acute (3) Hypotension Status: Acute (4) Seizure Status: Acute Social History Drug Use: none Marital Status: Housing Status: lives with family Occupation Status: employed Allergies Coded Allergies: DEIDRE Inhibitors (Verified Allergy, Unknown, COUGH, 09/27/17) Current Inpatient Medications Current Inpatient Medications Medications (Trade) Dose Ordered Sig/Shante Route Start Time Stop Time Status Last Admin Dose Admin Aspirin (Ecotrin Tab) 81 mg QAM PO 09/28/17 09:00 10/28/17 08:59 Atorvastatin Calcium (Lipitor Tab) 40 mg QAM PO 09/28/17 09:00 10/28/17 08:59 Clopidogrel Bisulfate (plAVix TAB) 75 mg QAM PO 09/28/17 09:00 10/28/17 08:59 Ferrous Sulfate (Feosol Tab) 325 mg DAILY PO 09/28/17 09:00 10/28/17 08:59 Finasteride (Proscar Tab) 5 mg QAM PO 09/28/17 09:00 10/28/17 08:59 Folic Acid (Folvite Tab) 1 mg QAM PO 09/28/17 09:00 10/28/17 08:59 Furosemide (Lasix Tab) 40 mg QAM PO 09/28/17 09:00 10/28/17 08:59 Levothyroxine Sodium (Synthroid Tab) 125 mcg DAILYBB PO 09/28/17 06:30 10/28/17 06:29 Losartan Potassium (coZAAR TAB) 25 mg QAM PO 09/28/17 09:00 10/28/17 08:59 Magnesium Oxide (Mag-Ox Tab) 400 mg BID PO 09/27/17 21:00 10/27/17 20:59 Metoprolol Succinate (Toprol Xl Tab) 100 mg DAILY PO 09/28/17 09:00 10/28/17 08:59 Multivitamins/ Minerals (Multivitamin W/ Minerals Tab) 1 tab QAM PO 09/28/17 09:00 10/28/17 08:59 Potassium Chloride (Klor-Con Tab) 20 meq QAM PO 09/28/17 09:00 10/28/17 08:59 Tamsulosin HCl (Flomax Cap) 0.4 mg HS PO 09/27/17 21:00 10/27/17 20:59 Thiamine HCl (Vitamin B-1 Tab) 100 mg QAM PO 09/28/17 09:00 10/28/17 08:59 Venlafaxine HCl (effeXOR EXTENDED REL CAP) 225 mg QAM PO 09/28/17 09:00 10/28/17 08:59 Ranitidine HCl (zANTac TAB) 300 mg BID PO 09/27/17 21:00 10/27/17 20:59 Heparin Sodium (Porcine) (Heparin Sq 5000 Unit/0.5ml) 5,000 unit Q8 SQ 09/27/17 14:00 10/27/17 13:59 09/27/17 13:56 5,000 UNIT Ondansetron HCl (Zofran Inj) 4 mg Q6H PRN IV 09/27/17 11:30 10/27/17 11:29 Nitroglycerin (Nitrostat Tab) 0.4 mg UD PRN SL 09/27/17 11:30 10/27/17 11:29 Insulin Aspart (novoLOG ASPART) SLIDING SCALE If C... ACHS SC 09/27/17 16:00 10/27/17 15:59 Glucose (Glucose 40% Gel) 15-30 GRAMS 15 GRAMS... UD PRN PO 09/27/17 11:30 10/27/17 11:29 Glucose (Glucose Chew Tab) 4-8 Tablets 4 Tabl... UD PRN PO 09/27/17 11:30 10/27/17 11:29 Dextrose (Dextrose 50% 50ML Syringe) 25-50ML OF 50% DW IV FOR... UD PRN IV 09/27/17 11:30 10/27/17 11:29 Glucagon (Glucagon Inj) 1 mg UD PRN SQ 09/27/17 11:30 10/27/17 11:29 Miscellaneous Information (Consult Glycemic Management Pharmacy) 1 ea UD PRN N/A 09/27/17 12:00 10/27/17 11:59 Sodium Chloride 1,000 ml @ 125 mls/hr Q8H IV 09/27/17 13:00 10/27/17 12:59 09/27/17 13:59 125 MLS/HR Gabapentin (Neurontin Tab) 1,200 mg TODAY@1400 PO 09/27/17 14:00 09/27/17 15:00 09/27/17 13:57 1,200 MG Gabapentin (Neurontin Tab) 600 mg Q6H PO 09/27/17 20:00 09/28/17 02:01 Gabapentin (Neurontin Tab) 600 mg Q8H PO 09/28/17 10:00 09/29/17 02:01 Gabapentin (Neurontin Tab) 600 mg Q12H PO 09/29/17 14:00 09/30/17 02:01 Gabapentin (Neurontin Tab) 600 mg Q24H PO 10/01/17 02:00 10/01/17 02:01 Lorazepam 1 mg/ Syringe 1 ml @ 1 mls/min PER PROTOCOL PRN IV 09/27/17 13:15 10/27/17 13:14 Lorazepam 2 mg/ Syringe 2 ml @ 1 mls/min PER PROTOCOL PRN IV 09/27/17 13:30 10/27/17 13:29 Lorazepam 3 mg/ Syringe 3 ml @ 1 mls/min PER PROTOCOL PRN IV 09/27/17 13:30 10/27/17 13:29 Insulin Aspart (novoLOG ASPART) SLIDING SCALE If C... TODAY@0000,0400 LA 09/28/17 00:00 09/28/17 04:01 Insulin Glargine (Lantus Solostar Pen) PLEASE SEE PROTOCOL TEXT TODAY@2100 ONCE SC 09/27/17 21:00 09/27/17 21:01 Hydralazine HCl (HydrALAZINE INJ) 10 mg Q8H PRN IV. 09/27/17 13:45 10/27/17 13:44 Physical Exam Vital Signs (Past 24 Hrs): Date Time Temp Pulse Resp B/P (MAP) Pulse Ox O2 Delivery O2 Flow Rate FiO2 09/27/17 11:53 36.5 59 16 177/91 (119) 97 Room Air 09/27/17 11:41 36.5 59 18 177/91 (119) 97 Room Air 09/27/17 10:30 96 Room Air 09/27/17 10:16 59 09/27/17 10:11 57 18 173/110 96 09/27/17 10:06 58 18 95 09/27/17 10:02 148/78 09/27/17 09:36 60 15 92 09/27/17 09:06 68 15 94 09/27/17 09:01 165/107 09/27/17 08:49 78 16 99 Room Air 09/27/17 08:19 82 21 96 Room Air 09/27/17 07:49 94 17 92 Room Air 09/27/17 07:44 155/100 93 Room Air 09/27/17 07:26 87 20 91 Room Air 09/27/17 07:10 159/110 09/27/17 07:07 84 09/27/17 07:06 36.4 78 22 180/107 95 Room Air 09/27/17 07:04 96 Room Air 09/27/17 07:00 180/107 Physical Exam: Constitutional: appearance nourished, healthy and obese Ears, Nose, Mouth and Throat: mucous membranes moist, no injection and skin normal, eyes normal Cardiovascular: normal S-1 and S-2 and regular rate and rhythm Respiratory: clear to auscultation (CTA) and no rales, rhonchi or wheeze Musculoskeletal: no peripheral edema and good distal pulses Skin: no stigmata of neurocutaneous disease noted and normal and intact Eyes: extraocular muscles intact (EOMI) and pupils equal, round and reactive to light (PERRL) NEUROLOGIC EXAMINATION: Mental status: Alert and interactive Oriented to full date and location Oriented to person Speech fluent with no evidence of aphasia Cranial Nerves smile eye brow raise symmetric Reflexes: Deep tendon reflexes were symmetrical and graded 2/5. Plantar responses were flexor. Sensory: decreased vibration sensation to mid iniguez, GT proprioception absent Coordination: finger to nose with no bi pass, no resting tremor, cogwheeling, reaching tremor Gait/Stance: Posture normal. Gait normal: with steady with steps, base, turning, heel and toe walking and tandem gait. Motor: Negative for pronator drift of out stretched arms with eyes closed. Strength: Normal - 5/5 all extremities Laboratory Results Past 24 Hours: 09/27/17 07:05 Red Blood Count 3.50, Mean Corpuscular Volume 99.7, Mean Corpuscular Hemoglobin 32.9, Mean Corpuscular Hemoglobin Concent 33.0, Mean Platelet Volume 9.7, Neutrophils (%) (Auto) 83.4, Lymphocytes (%) (Auto) 6.5, Monocytes (%) (Auto) 8.1, Eosinophils (%) (Auto) 1.1, Basophils (%) (Auto) 0.5, Neutrophils # (Auto) 7.59, Lymphocytes # (Auto) 0.59, Monocytes # (Auto) 0.74, Eosinophils # (Auto) 0.10, Basophils # (Auto) 0.05 09/27/17 07:05 Test 09/27/17 07:03 09/27/17 07:05 09/27/17 07:34 09/27/17 12:06 Lipase 176 U/L (73-393) Thyroid Stimulating Hormone (TSH) 5.400 uIu/ml (0.300-4.500) White Blood Count 9.11 K/uL (4.8-10.8) Red Blood Count 3.50 M/uL (4.7-6.1) Hemoglobin 11.5 g/dL (14.0-18.0) Hematocrit 34.9 % (42-52) Mean Corpuscular Volume 99.7 fL (80-100) Mean Corpuscular Hemoglobin 32.9 pg (25-34) Mean Corpuscular Hemoglobin Concent 33.0 g/dl (32-36) Platelet Count 237 K/uL (130-400) Mean Platelet Volume 9.7 fL (7.4-10.4) Neutrophils (%) (Auto) 83.4 % Lymphocytes (%) (Auto) 6.5 % Monocytes (%) (Auto) 8.1 % Eosinophils (%) (Auto) 1.1 % Basophils (%) (Auto) 0.5 % Neutrophils # (Auto) 7.59 K/uL (1.4-6.5) Lymphocytes # (Auto) 0.59 K/uL (1.2-3.4) Monocytes # (Auto) 0.74 K/uL (0.11-0.59) Eosinophils # (Auto) 0.10 K/uL (0-0.5) Basophils # (Auto) 0.05 K/uL (0-0.2) RDW Standard Deviation 55.2 fL (36.4-46.3) RDW Coefficient of Variation 15.2 % (11.5-14.5) Immature Granulocyte % (Auto) 0.4 % Immature Granulocyte # (Auto) 0.04 K/uL (0.00-0.02) Prothrombin Time 10.7 SECONDS (9.0-12.0) Prothromb Time International Ratio 1.0 (0.9-1.1) Activated Partial Thromboplast Time 25.0 SECONDS (21.0-31.0) Partial Thromboplastin Ratio 1.0 Anion Gap 7.0 mmol/L (3-11) Est Creatinine Clear Calc Drug Dose 88.8 ml/min Estimated GFR () 83.2 Estimated GFR (Non- 71.8 BUN/Creatinine Ratio 7.8 (10-20) Calcium Level 8.6 mg/dl (8.5-10.1) Magnesium Level 1.9 mg/dl (1.8-2.4) Total Bilirubin 0.3 mg/dl (0.2-1) Direct Bilirubin < 0.1 mg/dl (0-0.2) Aspartate Amino Transf (AST/SGOT) 39 U/L (15-37) Alanine Aminotransferase (ALT/SGPT) 28 U/L (12-78) Alkaline Phosphatase 123 U/L (45-117) Total Creatine Kinase 267 U/L (39-308) Total Protein 7.6 gm/dl (6.4-8.2) Albumin 3.0 gm/dl (3.4-5.0) Procalcitonin < 0.05 ng/ml (0-0.5) Ethyl Alcohol mg/dL < 3.0 mg/dl (0-3) Lactic Acid Level 3.0 mmol/L (0.4-2.0) Vitamin B12 Level 532 pg/mL (211-911) Folate > 24.00 ng/mL (>5.38) Test 09/27/17 13:14 09/27/17 13:15 Urine Color YELLOW Urine Appearance CLEAR (CLEAR) Urine pH 6.5 (4.5-7.5) Urine Specific Dixon 1.019 (1.000-1.030) Urine Protein TRACE (NEG) Urine Glucose (UA) 1+ (NEG) Urine Ketones NEG (NEG) Urine Occult Blood NEG (NEG) Urine Nitrite NEG (NEG) Urine Bilirubin NEG (NEG) Urine Urobilinogen NEG (NEG) Urine Leukocyte Esterase NEG (NEG) Urine WBC (Auto) 1-5 /hpf (0-5) Urine RBC (Auto) 0-4 /hpf (0-4) Urine Hyaline Casts (Auto) 1-5 /lpf (0-5) Urine Epithelial Cells (Auto) 5-10 /lpf (0-5) Urine Bacteria (Auto) NEG (NEG) Urine Sperm (Auto) PRESENT (NOT PRESENT) Urine Opiates Screen NEG (NEG) Urine Methadone, Qualitative NEG (NEG) Urine Barbiturates NEG (NEG) Urine Phencyclidine (PCP) Level NEG (NEG) Ur Amphetamine/Methamphetamine NEG (NEG) MDMA (Ecstasy) Screen NEG (NEG) Urine Benzodiazepines Screen POS (NEG) Urine Cocaine Metabolite NEG (NEG) Urine Marijuana (THC) NEG (NEG) Bedside Glucose 126 mg/dl (70-99) Imaging CXR -Cardiomegaly. Hiatal hernia. No acute findings. CT head- There is no hemorrhage, mass effect, or evidence of acute territorial ischemia by CT criteria. Impression 62 year old male s/p seizure like event- low blood sugar Plan 1. CT head no acute findings 2. EEG pending 3. low blood sugar and dehydration may have been source of episode 4. TSH high - will need followed by PCP last checked at PCP 3.08 06/15/2017 5. DM education for both patient and requested 6. would do a 72 hour EEG as out patient for further recommendations 7. no driving for 6 months license will need to be report to state 8. no heights, swimming or bathing alone 9. no seizure medications at this time 10. MRI would be helpful for any structure issues that may precipitate seizure activity 11. EtOH cessation -currently on withdrawal protocol including thiamine further recommendations to follow I have seen and discussed above patient with Dr Wayne Mishra, neurology I have seen this manand reviewed the history and imaging studies and labs Suspect this is a hypoglycemic event not a primary seizure and wonder if in retrospect many of the other events have been hypoglycemic in origin would not rx with aeds here and agree that a 72 hour eeg may be of value need no more advanced imagin as exam is fine and at this point he could see us outpatient [place] and have the eeg scheduled driving issues in this setting not clear but he has had an unexplained episode of loc and is a poorly controlled diabetic primary care can decide about reporting the event to dm we will sign off for now and have him make an outpatient appointment with Shaniqua benjamin myself about three weeks post discharge Wayne Mishra MD
--- NOTE | 2017-09-27 14:50 | Pharmacy Progress Note ---
Glycemic Control Intl Consult Date of Service Sep 27, 2017. Scope Glycemic Pharmacist consulted by Dr Ibrahim on 09/27/17 for glycemic control and to write orders per [facility] inpatient glycemic control protocol Objective Weight (Kilograms): 112.200 Accuchecks BSG (last 24hrs): Test 09/27/17 07:00 09/27/17 07:05 09/27/17 12:38 09/27/17 13:15 Bedside Glucose 174 mg/dl (70-99) 64 mg/dl (70-99) 126 mg/dl (70-99) Random Glucose 177 mg/dl (70-99) Laboratory Data (last 24hrs) Test 09/27/17 07:05 Anion Gap 7.0 mmol/L BUN/Creatinine Ratio 7.8 Blood Urea Nitrogen 9 mg/dl Creatinine 1.11 mg/dl Potassium Level 3.7 mmol/L Sodium Level 134 mmol/L White Blood Count 9.11 K/uL Red Blood Count 3.50 M/uL Hemoglobin 11.5 g/dL Hematocrit 34.9 % Mean Corpuscular Volume 99.7 fL Mean Corpuscular Hemoglobin 32.9 pg Mean Corpuscular Hemoglobin Concent 33.0 g/dl Platelet Count 237 K/uL Mean Platelet Volume 9.7 fL Neutrophils (%) (Auto) 83.4 % Lymphocytes (%) (Auto) 6.5 % Monocytes (%) (Auto) 8.1 % Eosinophils (%) (Auto) 1.1 % Basophils (%) (Auto) 0.5 % Neutrophils # (Auto) 7.59 K/uL Lymphocytes # (Auto) 0.59 K/uL Monocytes # (Auto) 0.74 K/uL Eosinophils # (Auto) 0.10 K/uL Basophils # (Auto) 0.05 K/uL Recent Pertinent Medications Outpatient Anti-diabetic Regimen: * Lantus 85units QAM & 15units QPM, Novolog SSI AC * A1c = ordered for 09/28/17 Assessment & Plan ASSESSMENT: * Mr. Hatfield is a 62yo M p/w AMS. PMHx: DM1(also type 2?), CAD, HTN, NSTEMI among others. This AM his found him convulsing. At this juncture unsure if AMS 2/2 to hypoglycemia or EtOH dependence. A1C ordered for 09/28/17. He takes lantus 85u QAM and lantus 15u QPM along with Novolog SSI. His last lantus dose was AM of 09/26/17. Alcohol consumption in a type 1 diabetic can predispose them to hypoglycemia (antagonized gluconeogenesis) the day following a binge. Conservative insulin regimen ordered for 09/27/17. Will consider wt/stress 1: . * Spoke with Mr. Hatfield re: the curious doses of his lantus. He does not take lantus as prescribed, he prefers an 85 unit and 15unit regimen. Further, he does not take any novolog. His total daily insulin wnhv=875 units. PLAN FOR INPATIENT GLYCEMIC CONTROL: * Basal insulin with LANTUS scale set for tonight only. Give 5 units BSG less than 180, BSG 180-250 give 10units, BSG >250 give 20 units. * Correctional Insulin with NOVOLOG / REGULAR per scale ACHS or Q6hrs while NPO * Goal Range: Low 120 mg/dL - High 150 mg/dL * Correction Factor: 40 mg/dL/unit * Nutritional / Prandial insulin per carb ratio of 1 unit per 13 grams CHO consumed * Please note that the plan above was derived based on current level of insulin resistance and hospital stress. These recommendations are appropriate for inpatient admission only. Plan of care upon discharge will need to be reassessed to avoid potential outpatient hypo/hyperglycemia. Thank you.
[2017-09-27] MEDS ORDERED: INSULIN GLARGINE SOLOSTAR 100 UNITS/ML 3 ML PEN SC ONE ×2 (17:00→21:00)
[2017-09-27] MEDS: INSULIN ASPART 100 UNITS/ML 3 ML PEN SC SCH ×2 (18:16→21:09)
[2017-09-27] MEDS: GABAPENTIN 600MG Q6H DOSE PO SCH (20:54)
[2017-09-27] MEDS: MAGNESIUM OXIDE 400 MG TAB PO SCH (20:55)
[2017-09-27] MEDS: TAMSULOSIN HCL 0.4 MG CAP PO SCH (20:55)
[2017-09-27] MEDS: RANITIDINE HCL 150 MG TAB PO SCH (20:55)
[2017-09-27] MEDS ORDERED: NSS + 20MEQ KCL 1000ML 1,000 ML IV ONE (21:00)
[2017-09-28] VITALS (17 sets, daily range): BP systolic 148–180; BP diastolic 84–111; PULSE 64–91; TEMP 36.5–37; O2SAT 95–98; Ht 177.8 cm; Wt 115.1 kg
[2017-09-28] MEDS: INSULIN ASPART 100 UNITS/ML 3 ML PEN SC SCH ×6 (00:08→21:04)
[2017-09-28] MEDS: SODIUM CHLORIDE 0.9% 1000ML 1,000 ML IV SCH (01:48)
[2017-09-28] MEDS: GABAPENTIN 600MG Q6H DOSE PO SCH (01:49)
[2017-09-28] MEDS: LEVOTHYROXINE 125 MCG TAB PO SCH (05:59)
[2017-09-28] MEDS: HEPARIN SOD 5000 UNIT/0.5 ML CARP SQ SCH ×3 (06:00→21:05)
[2017-09-28 06:20] LABS: HEMATOCRIT 32.5 % (42-52); HEMOGLOBIN 10.5 g/dL (14.0-18.0); MEAN CELL VOLUME 101.2 fL (80-100); MEAN CORPUSCULAR HEMOGLOBIN 32.7 pg (25-34); MEAN CORPUSCULAR HGB CONC 32.3 g/dl (32-36); PLATELET COUNT 223 K/uL (130-400); WHITE BLOOD COUNT 4.81 K/uL (4.8-10.8)
[2017-09-28 06:34] LABS: HEMOGLOBIN A1C 8.3 % (4.5-5.6)
[2017-09-28 06:44] LABS: ALBUMIN 2.6 gm/dl (3.4-5.0); CALCIUM 8.2 mg/dl (8.5-10.1); CREATININE 0.95 mg/dl (0.60-1.40); POTASSIUM 3.8 mmol/L (3.5-5.1)
[2017-09-28 06:45] LABS: TOTAL PROTEIN 6.9 gm/dl (6.4-8.2)
[2017-09-28] MEDS: POTASSIUM CHLORIDE 20 MEQ TABCR PO SCH (07:59)
[2017-09-28] MEDS: CEROVITE ADV FORMULA TAB PO SCH (07:59)
[2017-09-28] MEDS: FERROUS SULFATE 325 MG TAB PO SCH (07:59)
[2017-09-28] MEDS: FINASTERIDE 5 MG TAB PO SCH (07:59)
[2017-09-28] MEDS: THIAMINE HCL 100 MG TAB PO SCH (08:00)
[2017-09-28] MEDS: MAGNESIUM OXIDE 400 MG TAB PO SCH ×2 (08:00→20:58)
[2017-09-28] MEDS: CLOPIDOGREL BISULFATE 75 MG TAB PO SCH (08:00)
[2017-09-28] MEDS: METOPROLOL SUCC 50MG EXT REL TAB PO SCH (08:00)
[2017-09-28] MEDS: VENLAFAXINE HCL XR 75 MG CAPXR PO SCH (08:00)
[2017-09-28] MEDS: ASPIRIN 81 MG ECTAB PO SCH (08:00)
[2017-09-28] MEDS: ATORVASTATIN 20 MG TAB PO SCH (08:02)
[2017-09-28] MEDS: RANITIDINE HCL 150 MG TAB PO SCH ×2 (08:02→20:58)
[2017-09-28] MEDS ORDERED: INSULIN GLARGINE SOLOSTAR 100 UNITS/ML 3 ML PEN SC STA (08:17)
[2017-09-28] MEDS ORDERED: LOSARTAN POTASSIUM 25 MG TAB PO SCH (09:00)
[2017-09-28] MEDS ORDERED: FUROSEMIDE 40 MG TAB PO SCH (09:00)
[2017-09-28] MEDS ORDERED: INSULIN GLARGINE SOLOSTAR 100 UNITS/ML 3 ML PEN SC SCH (09:00)
[2017-09-28] MEDS: GABAPENTIN 600MG Q8H DOSE PO SCH ×2 (10:32→17:34)
[2017-09-28] MEDS: HydrALAZINE HCL 20 MG/ML VIAL IV. PRN ×2 (14:10→22:20)
--- NOTE | 2017-09-28 15:29 | ELECTROENCEPHALOGRAPH REPORT ---
CLINICAL DIAGNOSIS: Probable hypoglycemic event, possible seizures. ELECTROENCEPHALOGRAM DIAGNOSIS: Essentially normal during wakefulness. DESCRIPTION OF TRACING: This EEG was done as a bedside recording and is of good technical quality with few muscle or movement artifacts being recorded. Video analysis of the patient movement and behavior was obtained. Enough photic stimulation was performed. Hyperventilation was not. Drowsiness and light sleep were not recorded. Under these conditions, there is evidence for a background rhythm in the alpha range of up to 10 Hz of maximum frequency of up to only 20 microvolts of maximum amplitude. This is maximum in posterior head regions bilaterally symmetrical. Polymorphic mid to slightly lower frequency modest voltage theta activity is seen over all head regions without clear focal or regional predominance. Anterior head region maximum bilaterally symmetrical low voltage fast activity in the beta range is present. Photic stimulation provoked some minimal driving response without a photomyogenic or photoparoxysmal component. At no time during the waking tracing is there evidence for potentially epileptogenic activity in the form of polyspike or spike wave bursts, focal sharp waves or focal spikes. INTERPRETATION: This EEG is essentially normal during wakefulness without evidence for focal or generalized encephalopathy and without evidence for potentially epileptogenic activity.
--- NOTE | 2017-09-28 17:53 | Progress Note ---
Medicine Progress Note Date & Time of Visit: Sep 28, 2017 at 17:42. Subjective Patient states he feels well, denies any withdrawal symptoms or tremors. No overnight events noted. Has been ambulating without difficulty. Tolerating PO. Had a long discussion about patient's alcohol dependance and diabetes management. 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 He states his is not aware of the fact he drinks during the day and how much he drinks (~0.5 pint liquor daily + ~8 beers daily) . He admits to not checking his BSG and also has not been taking novolog due to the "hassle" of having to check BSG. He is interested in getting his diabetes better controlled, but does not feel he needs intervention for his drinking yet. He is afraid his drivers license will be taken away. Objective Last 8 Hrs Date Time Temp Pulse Resp B/P (MAP) Pulse Ox O2 Delivery O2 Flow Rate FiO2 09/28/17 16:00 97 Room Air 09/28/17 15:22 149/91 (110) 09/28/17 15:11 36.7 84 20 177/108 (131) 97 Room Air 09/28/17 14:13 88 18 149/84 (105) 95 Room Air 09/28/17 13:41 86 18 180/111 (134) 98 Room Air 174/100 (124) 09/28/17 12:00 95 Room Air 09/28/17 11:51 36.6 69 20 150/90 (110) 95 Room Air Physical Exam: GENERAL: Patient is in no acute distress. HEENT: No acute trauma, mucous membranes moist, no nasal congestion, no scleral icterus. NECK: No stridor, trachea is midline. LUNGS: Clear to auscultation bilaterally, no wheeze, no rhonchi, breath sounds equal. HEART: Without murmurs gallops or rubs, regular rate and rhythm. ABDOMEN: Soft, nontender, bowel sounds positive, distended EXTREMITIES: No cyanosis or edema, varicose veins in B/L LE, R>L; right hand with 4 digits NEUROLOGIC: Oriented x 3, no acute motor or sensory deficits, no focal weakness. SKIN: No rash, no jaundice, no diaphoresis. Laboratory Results: Last 24 Hours Test 4/23/18 18:56 09/27/17 20:39 09/27/17 22:07 09/27/17 23:59 Lactic Acid Level 2.4 mmol/L 2.1 mmol/L Bedside Glucose 205 mg/dl 198 mg/dl Test 09/28/17 00:40 09/28/17 04:31 09/28/17 06:01 09/28/17 07:27 Lactic Acid Level 1.8 mmol/L 1.1 mmol/L Bedside Glucose 133 mg/dl 121 mg/dl White Blood Count 4.81 K/uL Red Blood Count 3.21 M/uL Hemoglobin 10.5 g/dL Hematocrit 32.5 % Mean Corpuscular Volume 101.2 fL Mean Corpuscular Hemoglobin 32.7 pg Mean Corpuscular Hemoglobin Concent 32.3 g/dl Platelet Count 223 K/uL Sodium Level 137 mmol/L Potassium Level 3.8 mmol/L Chloride Level 107 mmol/L Carbon Dioxide Level 26 mmol/L Anion Gap 4.0 mmol/L Blood Urea Nitrogen 9 mg/dl Creatinine 0.95 mg/dl Est Creatinine Clear Calc Drug Dose 103.7 ml/min Estimated GFR () 100.4 Estimated GFR (Non- 86.7 BUN/Creatinine Ratio 9.9 Random Glucose 143 mg/dl Estimated Average Glucose 192 mg/dl Hemoglobin A1c 8.3 % Calcium Level 8.2 mg/dl Magnesium Level 2.3 mg/dl Total Bilirubin 0.5 mg/dl Direct Bilirubin 0.1 mg/dl Aspartate Amino Transf (AST/SGOT) 31 U/L Alanine Aminotransferase (ALT/SGPT) 25 U/L Alkaline Phosphatase 112 U/L Total Protein 6.9 gm/dl Albumin 2.6 gm/dl Test 09/28/17 11:31 09/28/17 14:42 09/28/17 16:23 Bedside Glucose 218 mg/dl 140 mg/dl Lactic Acid Level 2.4 mmol/L Assessment & Plan QUESTIONABLE SEIZURE/SEIZURE LIKE ACTIVITY: -witnessed by when awoken from sleep while in bed -prior similar episodes per the patient many years ago which had occurred following strenuous activity -postictal altered mental status, has since resolved -was hypoglycemic, unlikely alcohol withdrawal as had maintained his usual daily dose of alcohol without changes on Wednesday -Remote seizure history, not on AEDs -monitor on telemetry -Neuro consulted, believe this more likely related to the hypoglycemia, however if it occurs again would recommend 72 continuous EEG monitoring -EEG negative -Seizure precautions -IVF resuscitation with banana bag LACTIC ACIDOSIS: -etiology unclear -no evidence of sepsis/infection/respiratory distress -no medications that could be contributing DM TYPE I: -received dextrose en route to ED -Pharm consulted for glycemic mgmt, appreciate management -BSG checks AC HS -HbA1c: 8.3% -per patient he was only using lantus insulin BID, and was not checking fingerstick BSG ALCOHOL DEPENDANCE: -Endorses drinking 1/2 pint daily + ~8 beers a day -Last drink at 7pm the night before admission -Withdrawal protocol initiated, on gabapentin, no symptoms noted -Banana bag, folic acid, thiamine -patient denies hx of DTs when previously stopped drinking HTN: -Elevated -on Lopressor and losartan -Continue lasix, losartan, toprol -increase losartan dose -hydralazine PRN given once CAD: -Hx of NSTEMI in 2016 -Cardiac cath performed at that time, with findings not amenable to PCI -Continue medical mgmt with baby aspirin, statin, plavix MDD: -stable -continue Effexor -patient reports depression and anxiety may have caused him to drink but now hes not sure why he continues to drink alcohol HYPOTHYROIDISM: -continue synthroid HYPERLIPIDEMIA: -continue statin GERD: -continue H2 fer CHANTELL: -CPAP q HS COPD: -Stable Current Inpatient Medications: Current Inpatient Medications Medications (Trade) Dose Ordered Sig/Shante Route Start Time Stop Time Status Last Admin Dose Admin Aspirin (Ecotrin Tab) 81 mg QAM PO 09/28/17 09:00 10/28/17 08:59 09/28/17 08:00 81 MG Atorvastatin Calcium (Lipitor Tab) 40 mg QAM PO 09/28/17 09:00 10/28/17 08:59 09/28/17 08:02 40 MG Clopidogrel Bisulfate (plAVix TAB) 75 mg QAM PO 09/28/17 09:00 10/28/17 08:59 09/28/17 08:00 75 MG Ferrous Sulfate (Feosol Tab) 325 mg DAILY PO 09/28/17 09:00 10/28/17 08:59 09/28/17 07:59 325 MG Finasteride (Proscar Tab) 5 mg QAM PO 09/28/17 09:00 10/28/17 08:59 09/28/17 07:59 5 MG Folic Acid (Folvite Tab) 1 mg QAM PO 09/28/17 09:00 10/28/17 08:59 09/28/17 07:59 1 MG Levothyroxine Sodium (Synthroid Tab) 125 mcg DAILYBB PO 09/28/17 06:30 10/28/17 06:29 09/28/17 05:59 125 MCG Magnesium Oxide (Mag-Ox Tab) 400 mg BID PO 09/27/17 21:00 10/27/17 20:59 09/28/17 08:00 400 MG Metoprolol Succinate (Toprol Xl Tab) 100 mg DAILY PO 09/28/17 09:00 10/28/17 08:59 09/28/17 08:00 100 MG Multivitamins/ Minerals (Multivitamin W/ Minerals Tab) 1 tab QAM PO 09/28/17 09:00 10/28/17 08:59 09/28/17 07:59 1 TAB Potassium Chloride (Klor-Con Tab) 20 meq QAM PO 09/28/17 09:00 10/28/17 08:59 09/28/17 07:59 20 MEQ Tamsulosin HCl (Flomax Cap) 0.4 mg HS PO 09/27/17 21:00 10/27/17 20:59 09/27/17 20:55 0.4 MG Thiamine HCl (Vitamin B-1 Tab) 100 mg QAM PO 09/28/17 09:00 10/28/17 08:59 09/28/17 08:00 100 MG Venlafaxine HCl (effeXOR EXTENDED REL CAP) 225 mg QAM PO 09/28/17 09:00 10/28/17 08:59 09/28/17 08:00 225 MG Ranitidine HCl (zANTac TAB) 300 mg BID PO 09/27/17 21:00 10/27/17 20:59 09/28/17 08:02 300 MG Heparin Sodium (Porcine) (Heparin Sq 5000 Unit/0.5ml) 5,000 unit Q8 SQ 09/27/17 14:00 10/27/17 13:59 09/28/17 14:12 5,000 UNIT Ondansetron HCl (Zofran Inj) 4 mg Q6H PRN IV 4/23/18 11:30 10/27/17 11:29 Nitroglycerin (Nitrostat Tab) 0.4 mg UD PRN SL 09/27/17 11:30 10/27/17 11:29 Insulin Aspart (novoLOG ASPART) SLIDING SCALE If C... ACHS SC 09/27/17 16:00 10/27/17 15:59 09/28/17 17:34 5 UNITS Glucose (Glucose 40% Gel) 15-30 GRAMS 15 GRAMS... UD PRN PO 09/27/17 11:30 10/27/17 11:29 Glucose (Glucose Chew Tab) 4-8 Tablets 4 Tabl... UD PRN PO 09/27/17 11:30 10/27/17 11:29 Dextrose (Dextrose 50% 50ML Syringe) 25-50ML OF 50% DW IV FOR... UD PRN IV 09/27/17 11:30 10/27/17 11:29 Glucagon (Glucagon Inj) 1 mg UD PRN SQ 09/27/17 11:30 10/27/17 11:29 Miscellaneous Information (Consult Glycemic Management Pharmacy) 1 ea UD PRN N/A 09/27/17 12:00 10/27/17 11:59 Gabapentin (Neurontin Tab) 600 mg Q8H PO 09/28/17 10:00 09/29/17 02:01 09/28/17 17:34 600 MG Gabapentin (Neurontin Tab) 600 mg Q12H PO 09/29/17 14:00 09/30/17 02:01 Gabapentin (Neurontin Tab) 600 mg Q24H PO 10/01/17 02:00 10/01/17 02:01 Lorazepam 1 mg/ Syringe 1 ml @ 1 mls/min PER PROTOCOL PRN IV 09/27/17 13:15 10/27/17 13:14 Lorazepam 2 mg/ Syringe 2 ml @ 1 mls/min PER PROTOCOL PRN IV 09/27/17 13:30 10/27/17 13:29 Lorazepam 3 mg/ Syringe 3 ml @ 1 mls/min PER PROTOCOL PRN IV 09/27/17 13:30 10/27/17 13:29 Hydralazine HCl (HydrALAZINE INJ) 10 mg Q8H PRN IV. 09/27/17 13:45 10/27/17 13:44 09/28/17 14:10 10 MG Insulin Glargine (Lantus Solostar Pen) PLEASE SEE PROTOCOL TE... TODAY@2100 ONCE SC 09/28/17 21:00 09/28/17 21:01 Losartan Potassium (coZAAR TAB) 50 mg QAM PO 09/29/17 09:00 10/28/17 08:59
[2017-09-28] MEDS: TAMSULOSIN HCL 0.4 MG CAP PO SCH (20:58)
[2017-09-28] MEDS ORDERED: INSULIN GLARGINE SOLOSTAR 100 UNITS/ML 3 ML PEN SC ONE (21:00)
[2017-09-29] VITALS (9 sets, daily range): BP systolic 124–177; BP diastolic 67–112; PULSE 60–76; TEMP 36.4–36.8; O2SAT 92–97
[2017-09-29] MEDS: GABAPENTIN 600MG Q8H DOSE PO SCH (01:58)
[2017-09-29] MEDS: LEVOTHYROXINE 125 MCG TAB PO SCH (05:39)
[2017-09-29] MEDS: HEPARIN SOD 5000 UNIT/0.5 ML CARP SQ SCH ×2 (05:40→13:19)
[2017-09-29 06:33] LABS: MEAN CELL VOLUME 100.6 fL (80-100); MEAN CORPUSCULAR HEMOGLOBIN 32.5 pg (25-34); MEAN CORPUSCULAR HGB CONC 32.4 g/dl (32-36); MEAN PLATELET VOLUME 9.6 fL (7.4-10.4); PLATELET COUNT 213 K/uL (130-400); RED CELL DISTRIBUTION WIDTH CV 15.1 % (11.5-14.5); RED CELL DISTRIBUTION WIDTH SD 55.1 fL (36.4-46.3); WHITE BLOOD COUNT 4.81 K/uL (4.8-10.8)
[2017-09-29 07:06] LABS: ALBUMIN 2.8 gm/dl (3.4-5.0); ALT/SGPT 27 U/L (12-78); AST/SGOT 34 U/L (15-37); BLOOD UREA NITROGEN 10 mg/dl (7-18); CALCIUM 8.3 mg/dl (8.5-10.1); CARBON DIOXIDE 27 mmol/L (21-32); CREATININE 1.08 mg/dl (0.60-1.40); GLUCOSE 211 mg/dl (70-99); POTASSIUM 4.2 mmol/L (3.5-5.1); SODIUM 134 mmol/L (136-145)
[2017-09-29 07:09] LABS: ALKALINE PHOSPHATASE 114 U/L (45-117); TOTAL PROTEIN 6.9 gm/dl (6.4-8.2)
[2017-09-29] MEDS: RANITIDINE HCL 150 MG TAB PO SCH (08:17)
[2017-09-29] MEDS: VENLAFAXINE HCL XR 75 MG CAPXR PO SCH (08:17)
[2017-09-29] MEDS: CLOPIDOGREL BISULFATE 75 MG TAB PO SCH (08:17)
[2017-09-29] MEDS: MAGNESIUM OXIDE 400 MG TAB PO SCH (08:17)
[2017-09-29] MEDS: ASPIRIN 81 MG ECTAB PO SCH (08:17)
[2017-09-29] MEDS: POTASSIUM CHLORIDE 20 MEQ TABCR PO SCH (08:17)
[2017-09-29] MEDS: FINASTERIDE 5 MG TAB PO SCH (08:17)
[2017-09-29] MEDS: FERROUS SULFATE 325 MG TAB PO SCH (08:17)
[2017-09-29] MEDS: CEROVITE ADV FORMULA TAB PO SCH (08:17)
[2017-09-29] MEDS: THIAMINE HCL 100 MG TAB PO SCH (08:17)
[2017-09-29] MEDS: METOPROLOL SUCC 50MG EXT REL TAB PO SCH (08:17)
[2017-09-29] MEDS: ATORVASTATIN 20 MG TAB PO SCH (08:17)
[2017-09-29] MEDS: INSULIN ASPART 100 UNITS/ML 3 ML PEN SC SCH ×3 (08:21→17:30)
[2017-09-29] MEDS ORDERED: LOSARTAN POTASSIUM 50 MG TAB PO SCH (09:00)
[2017-09-29] MEDS ORDERED: INSULIN GLARGINE SOLOSTAR 100 UNITS/ML 3 ML PEN SC SCH (09:00)
--- NOTE | 2017-09-29 11:44 | Pharmacy Progress Note ---
Pharmacy Glycemic Short Note 2 Date of Service Sep 29, 2017. PLAN FOR DISCHARGE: * Mr. Hatfield is a pleasant 62yo M admitted 09/27/17 2/2 AMS. I surmise that his total daily insulin requirement is ~80-90units/day in the outpatient setting. For discharge, I recommend starting off with Lantus 20units BID and a fixed dose of Novolog 15units with meals. I stressed the importance of skipping novolog if he doesn't eat a meal. * He is unwilling to try the recommended correction factor and carb counting for bolus insulin and I have thus provided a fixed novolog dose in hopes of increasing his novolog adherence. * Thank you for allowing me to participate in the care of Mr. Hatfield.
[2017-09-29] MEDS ORDERED: INSULIN HUMAN REGULAR IV BOLUS 6 UNIT in SYRINGE 0 ML IV STA (12:56)
[2017-09-29] MEDS ORDERED: GABAPENTIN 600MG Q12H DOSE PO SCH (14:00)
[2017-09-29] MEDS ORDERED: NVLGIPEN SC (15:30)
[2017-09-29] MEDS ORDERED: CZR50 PO (15:30)
--- NOTE | 2017-09-29 15:34 | Discharge Instructions ---
Discharge Instructions Date of Service Sep 29, 2017. Admission Reason for Admission: Altered Mental Status Discharge Discharge Diagnosis / Problem: Hypoglycemia, altered mentation Discharge Goals Goal(s): Diagnostic testing, Therapeutic intervention Activity Recommendations Activity Limitations: as noted below Lifting Limitations: gradually increase as tolerated Exercise/Sports Limitations: gradually increase as tolerated Driving or Machine Use: please refrain from driving until after you have been seen by Dr. Bruce Please refrain from any/all alcohol use; if you need assistance with this please contact the hospital physician or Dr. Bruce's office . Instructions / Follow-Up Instructions / Follow-Up Please see Dr. Bruce on October 04, at 11 AM for hospital follow up Current Hospital Diet Patient's current hospital diet: AHA Diet (Heart Healthy), Diabetes Type 2 Diet Discharge Diet Recommended Diet: AHA Diet (Heart Healthy), Diabetes Type 2 Diet Pending Studies Studies pending at discharge: no Laboratory Results Hemoglobin A1c Test 09/28/17 06:01 Range/Units Estimated Average Glucose 192 mg/dl Hemoglobin A1c 8.3 H 4.5-5.6 % Medical Emergencies . Who to Call and When: Medical Emergencies: If at any time you feel your situation is an emergency, please call 911 immediately. . Non-Emergent Contact Non-Emergency issues call your: Primary Care Provider, Hospital Doctor . . "Provider Documentation" section prepared by Divya Plata. .
[2017-09-29] MEDS: HydrALAZINE HCL 20 MG/ML VIAL IV. PRN (16:53)
--- NOTE | 2017-09-29 17:26 | Discharge Summary ---
Discharge Summary Date of Service Sep 29, 2017. Discharge Summary Admission Date: Sep 27, 2017 at 10:12 Discharge Date: Sep 29, 2017 Discharge Disposition: Home Principal Diagnosis: Hypoglycemia, Seizure-like event with loss of consciousness Pending Studies/Follow-Up: Discussion regarding driving privileges as per Neuro recommendation due to labile BSG and "seizure like" events, Glycemic pharmacy follow up, patient advised to bring BSG logs to appointments Medication Reconciliation New Medications: Insulin Aspart (Novolog Flexpen) 100 Units/Ml Inj 15 UNITS SC TIDM, #1 PEN 1 Refill Losartan Potassium (Losartan Potassium) 50 Mg Tab 50 MG PO QAM, #30 TAB Continued Medications: Aspirin (Aspirin Ec) 81 Mg Tab 81 MG PO QAM Atorvastatin (Lipitor) 40 Mg Tab 40 MG PO QAM Clopidogrel (Plavix) 75 Mg Tab 75 MG PO QAM Ferrous Sulfate (Ferrous Sulfate) 325 Mg Tab 325 MG PO DAILY Finasteride (Finasteride) 5 Mg Tab 5 MG PO QAM Folic Acid (Folic Acid) 1 Mg Tab 1 MG PO QAM Furosemide (Lasix) 40 Mg Tab 40 MG PO QAM Insulin Glargine (Lantus Solostar) 100 Unit/Ml Inj 20 UNITS SC QAM Insulin Glargine (Lantus Solostar) 100 Unit/Ml Inj 20 UNITS SC QPM, PEN Levothyroxine Sodium (Levothyroxine Sodium) 125 Mcg Tab 125 MCG PO QAM Magnesium Oxide (Mag-Ox) 400 Mg Tab 400 MG PO BID, TAB Metoprolol Succ (Toprol Xl) (Toprol-Xl ) 100 Mg Tabcr 100 MG PO DAILY, TAB Multivitamins/Minerals (Mvi With Minerals) Tab 1 TAB PO QAM Potassium Chloride Microencaps (Potassium Chloride Er) 20 Meq Tab 20 MEQ PO QAM Ranitidine HCl (Ranitidine HCl) 300 Mg Tab 300 MG PO BID Tamsulosin Hcl (Flomax) 0.4 Mg Cap 0.4 MG PO HS Thiamine HCl (Vitamin B-1) 100 Mg Tab 100 MG PO QAM Venlafaxine Hcl (Venlafaxine Extended Rel) 75 Mg Cap 3 TABS PO QAM Discontinued Medications: Insulin Aspart (Novolog Flexpen) 100 Units/Ml Inj 1 DOSE SC AC PRN for SLIDING SCALE Is not currently taking novolog. Losartan Potassium (Losartan Potassium) 25 Mg Tab 25 MG PO QAM Metformin Hcl (Glucophage) 1,000 Mg Tab 1000 MG PO BID, TAB Admission Information HPI (per Admitting provider): Patient is a 62-year-old male with a PMH of Type I DM, remote seizure history, alcohol dependence, CAD (h/o NSTEMI), HTN and other medical problems listed below who presents after a seizure episode this morning. Per , she was awakened early this AM to the patient convulsing. Episode lasted 30 seconds and patient was altered afterwards. She thought his blood sugar might be low so she gave cake icing. EMS arrived and patient's BSG was 63. He was given oral glucose but vomited afterwards so he was given D-10 en route. Patient knew his name and family members names but was incorrect and identifying the current president and could not state his children's ages. Does not remember any of the events of this morning. When arrived in the ED 2 hours following episode, patient's mental status was back to baseline. Patient has a history of alcohol dependence and endorses drinking 1/2 pint of liquor daily. Last drink was around 7 PM last night. Denies history of seizures in the setting of alcohol withdrawal. Struggles with medical non-compliance and states that he does not take his morning medications 3x/ week on average. Takes Lantus consistently. Reports that last seizure was ~5 years ago and was precipitated by dehydration during a hot day. Denies ever taking anti- epileptic medication in the past. Does not currently see a neurologist. PCP is Dr. Bruce. Currently endorses a dull headache but denies fever, chills, lightheadedness, near syncope, confusion, visual changes, chest pain, SOB, abdominal pain, nausea, vomiting, bowel or bladder changes or LE swelling. Physical Exam (per Admitting): General Appearance: WD/WN, no apparent distress Head: normocephalic, atraumatic Eyes: normal inspection, PERRL, sclerae normal ENT: normal ENT inspection, hearing grossly normal, pharynx normal Neck: supple, thyroid normal, trachea midline Respiratory/Chest: chest non-tender, lungs clear, normal breath sounds, no respiratory distress, no accessory muscle use Cardiovascular: regular rate, rhythm, no murmur, normal peripheral pulses Abdomen/GI: non tender, soft, no organomegaly Back: normal inspection Extremities/Musculoskelatal: normal inspection, no calf tenderness, no pedal edema, + pertinent finding (LLE varicose veins ) Neurologic/Psych: pigs feet cleaner II-XII nml as tested, no motor/sensory deficits, alert , normal mood/affect, oriented x 3 Skin: normal color, warm/dry, no rash Hospital Course QUESTIONABLE SEIZURE/SEIZURE LIKE ACTIVITY: -witnessed by when awoken from sleep while in bed -prior similar episodes per the patient many years ago which had occurred following strenuous activity -postictal altered mental status, has since resolved -was hypoglycemic, unlikely alcohol withdrawal as had maintained his usual daily dose of alcohol without changes on Wednesday -Remote seizure history, not on AEDs -monitor on telemetry -Neuro consulted, believe this more likely related to the hypoglycemia, however if it occurs again would recommend 72 continuous EEG monitoring -EEG negative -Seizure precautions -IVF resuscitation with banana bag, now completed -needs to discuss driving privileges with PCP as per Neuro recommendations LACTIC ACIDOSIS: resolved -etiology unclear -no evidence of sepsis/infection/respiratory distress -no medications that could be contributing, was on metformin as outpatient but this was stopped and will not be restarted DM TYPE I: -received dextrose en route to ED -Pharm consulted for glycemic mgmt, appreciate management -BSG checks AC HS -HbA1c: 8.3% -per patient he was only using lantus insulin BID, and was not checking fingerstick BSG ALCOHOL DEPENDANCE: -Endorses drinking 1/2 pint daily + ~8 beers a day -Last drink at 7pm the night before admission -Withdrawal protocol initiated, on gabapentin, no symptoms noted -Banana bag, folic acid, thiamine -patient denies hx of DTs when previously stopped drinking HTN: -Elevated -on Lopressor and losartan -Continue lasix, losartan, toprol -increase losartan dose -hydralazine PRN given once CAD: -Hx of NSTEMI in 2016 -Cardiac cath performed at that time, with findings not amenable to PCI -Continue medical mgmt with baby aspirin, statin, plavix MDD: -stable -continue Effexor -patient reports depression and anxiety may have caused him to drink but now hes not sure why he continues to drink alcohol HYPOTHYROIDISM: -continue synthroid HYPERLIPIDEMIA: -continue statin GERD: -continue H2 fer CHANTELL: -CPAP q HS COPD: -Stable PHYSICAL EXAM: GENERAL: Patient is in no acute distress. HEENT: No acute trauma, normocephalic, mucous membranes moist, no nasal congestion, no scleral icterus. NECK: No stridor, trachea is midline. LUNGS: Clear to auscultation bilaterally, no wheeze, no rhonchi, breath sounds equal. HEART: Without murmurs gallops or rubs, regular rate and rhythm. ABDOMEN: Soft, nontender, bowel sounds positive EXTREMITIES: No cyanosis; trace LE edema, LE varices, moving all 4 extremities NEUROLOGIC: Oriented x 3, no acute motor or sensory deficits, no focal weakness. SKIN: No rash, no jaundice, no diaphoresis. Total time spent on discharge = 37 This includes examination of the patient, discharge planning, medication reconciliation, and communication with other providers. Discharge Instructions see patient instructions
[2017-10-01] MEDS ORDERED: GABAPENTIN 600MG X1 DOSE PO SCH (02:00)
== END 2017-09-29 18:37 | disposition home or self-care (01) | DRG 638 ==
LOC: EDBD 06:56 → C.EDB 06:57 → C.MED 10:12 → ENRESERV 10:29
PROVIDERS: ADMIT Hospitalist; ATTEND Internal Medicine
DX: E10.649 Type 1 diabetes mellitus with hypoglycemia without coma (principal); G40.89 Other seizures; E87.2 Acidosis; F10.20 Alcohol dependence, uncomplicated; N40.0 Benign prostatic hyperplasia without lower urinary tract symptoms; I25.10 Atherosclerotic heart disease of native coronary artery without angina pectoris; J44.9 Chronic obstructive pulmonary disease, unspecified; E78.5 Hyperlipidemia, unspecified; K21.9 Gastro-esophageal reflux disease without esophagitis; I10 Essential (primary) hypertension; E03.9 Hypothyroidism, unspecified; I25.2 Old myocardial infarction; G47.33 Obstructive sleep apnea (adult) (pediatric); Z88.8 Allergy status to other drugs, medicaments and biological substances; Z79.82 Long term (current) use of aspirin; E10.40 Type 1 diabetes mellitus with diabetic neuropathy, unspecified; F32.9 Major depressive disorder, single episode, unspecified

== ENCOUNTER 2018-05-16 13:56 | Inpatient (IN) ==
[2018-05-16] MEDS ORDERED: ALBUT/IPRATROP 3MG/0.5MG NEB 3 ML VIAL NEB STA (14:25)
[2018-05-16 15:09] LABS: Base Excess VBG 0.8 mEq/L; HCO3 VBG 25 mmol/L; PCO2 VBG 37 mmHg (38-50); PO2 VBG 30 mmHg; pH VBG 7.44 (7.36-7.41)
--- NOTE | 2018-05-16 15:16 | XRay Report ---
XR chest 1V portable CLINICAL HISTORY: Atypical chest pain. Cough. COMPARISON STUDY: 05/13/2018 FINDINGS: The heart is enlarged. There are small bilateral pleural effusions. There is radiographic e vidence of congestive failure with mild pulmonary edema. There is a retrocardiac opacity consistent w ith a hiatal hernia.[ IMPRESSION: Interval development of congestive failure, pulmonary edema, and small bilateral pleural effusions. Electronically signed by: Rich Abreu M.D. 05/16/2018 3:15 PM
[2018-05-16 15:19] LABS: Basophils # (auto) 0.05 K/uL (0-0.2); Basophils % (auto) 0.4 %; Eosinophils # (auto) 0.02 K/uL (0-0.5); Eosinophils % (auto) 0.2 %; Hematocrit (blood only) 32.4 % (42-52); Hemoglobin 10.5 g/dL (14.0-18.0); Immature Granulocytes # (auto) 0.03 K/uL (0.00-0.02); Immature Granulocytes % (auto) 0.2 %; Lymphocytes # (auto) 0.79 K/uL (1.2-3.4); Lymphocytes % (auto) 6.3 %; Mean Corpuscular Hgb Conc 32.4 g/dL (32-36); Mean Corpuscular Volume 100.3 fL (80-100); Mean Platelet Volume 10.3 fL (7.4-10.4); Monocytes # (auto) 1.41 K/uL (0.11-0.59); Monocytes % (auto) 11.2 %; Neutrophils # (auto) 10.34 K/uL (1.4-6.5); Neutrophils % (auto) 81.7 %; Nucleated RBC # (auto) 0.02 K/uL (0-0); Nucleated RBC % (auto) 0.2 %; Platelet Count 296 K/uL (130-400); RDW Coefficient of Variation 18.1 % (11.5-14.5); RDW Standard Deviation 66.6 fL (36.4-46.3); Red Blood Count 3.23 M/uL (4.7-6.1); White Blood Count 12.64 K/uL (4.8-10.8)
[2018-05-16 15:33] LABS: Potassium 4.1 mmol/L (3.5-5.1)
[2018-05-16 15:38] LABS: Albumin Level 2.8 gm/dl (3.4-5.0); Calcium 8.4 mg/dl (8.5-10.1); Creatinine Clr Calc Pharmacy 91.1 ml/min; Est GFR (African American) 82.3; Magnesium 1.9 mg/dl (1.8-2.4)
[2018-05-16 15:50] LABS: Albumin Globulin Ratio 0.6 (0.9-2); Bilirubin,Total 0.5 mg/dl (0.1-1); Globulin 4.7 gm/dl (2.5-4.0); Total Protein 7.5 gm/dl (6.4-8.2); Troponin I 0.215 ng/ml (0-0.045)
[2018-05-16] MEDS ORDERED: FUROSEMIDE 40 MG/4 ML VIAL IV STA (15:59)
[2018-05-16] MEDS ORDERED: ASPIRIN CHEW 324 MG PO STA (15:59)
[2018-05-16 16:14] LABS: Oxygen Saturation VBG < 60.0 %
--- NOTE | 2018-05-16 17:51 | History & Physical Report ---
Addendum entered and electronically signed by Dian Allen PA-C 18:31: Addendum (Blank) Addendum May 16, 2018 18:30 Dx: ETOH Abuse Has been abstinent since 05/13 no s/sx of withdrawl received gabapentin w/drawl protocol most recent admission continue B12, folic acid repletion Original Note: Date of Service May 16, 2018 Assessment & Plan (1) Acute diastolic CHF (congestive heart failure): This is a 62-year-old white male with significant past medical history of CAD, T2 DM, HLD, mild COPD, seizure disorder, EtOH abuse, CHANTELL on CPAP at bedtime, BPH , GERD who presents to [facility] secondary to shortness of breath times 1 day. In ED patient was noted to be hypoxic. Placed on O2 supplementation. Chest x-ray revealed congestive heart failure. Lab work revealed leukocytosis 12.64, hemoglobin 10.5, hematocrit 32.4, platelet 296, VBG pH 7.44, sodium 132, potassium 4.1, BUN 10, creatinine 1.12, glucose 107, troponin 0 0.215, BNP 1633. Influenza was negative. In ED he was given IV Lasix 40 mg x1, ASA 325. Respiratory status improved after IV Lasix was given. He also noted increased urine output. Ddx: Acute diastolic chf, pna, copd exac, bronchitis, PE and other etiologies not listed -admit to telemetry -consult cardiology -IV lasix 40mg BID, with potassium supplementation -monitor Strict I and O -daily standing weights -recent echo done on 05/13/18 therefore no need to repeat at this time -repeat troponin at 2100 and in a.m. -cbc, bmp, mag in a.m. -replace lytes as necessary (2) Acute and chronic respiratory failure with hypoxia: -secondary to acute diastolic CHF -continue O2, titrate as necessary -See plan above (3) Cellulitis of right lower extremity without foot: -Diagnosed most recent hospitalization, patient follows wound/foot clinic; follow up -Was discharged home on course of Bactrim DS twice daily and Keflex 500 mg 4 times daily for 05/10 -Patient has taken 3 doses of Keflex, and 1 dose of Bactrim -To complete a 7-day course -WBC 12 K, monitor, he is afebrile (4) Seizure: -continue keppra, seizure precautions -to f/u outpt neuro in 2 weeks (5) CAD (coronary artery disease): -continue ASA, plavix, BB, losartan -denies chest pain -cardiology consulted -troponin 0.2; but was 0.3 most recent admission given seizure d/o -repeat troponin at 2100 and in a.m. (6) HTN (hypertension): -blood pressure elevated on admission, most likely in setting of acute CHF -continue losartan, metoprolol and IV lasix -monitor (7) Diabetes: -Lantus 30 units SQ BID, novolog per protocol -monitor bs (8) COPD (chronic obstructive pulmonary disease): -no acute exac -continue spiriva prn, albuterol neb q6h prn -incentive spirometry (9) Hypothyroidism: -continue levothyroxine (10) CHANTELL (obstructive sleep apnea): -cpap at HS (11) GERD (gastroesophageal reflux disease): -continue ranitidine (12) BPH (benign prostatic hyperplasia): -continue flomax, finasteride (13) DVT prophylaxis: -lovenox 40mg sq q24hr, TEDS Disposition: D/C to home when medically able Follow up: with PCP Dr. Bruce, Foot/wound clinic, Neurology Shaniqua Prescott PA-C Patient was seen in collaboration with Dr. Eastman, please see addendum regarding further assessment and plan. History of Present Illness Chief Complaint: SOB x 1 day. Primary Care Provider: Laila Bruce MD This is a 62-year-old white male with significant past medical history of CAD, T2 DM, HLD, mild COPD, seizure disorder, EtOH abuse, CHANTELL on CPAP at bedtime, BPH , GERD who presents to [facility] secondary to shortness of breath times 1 day. Patient was recently hospitalized at [facility] from 05/13-05/15 status post fall. It was felt fall was secondary to seizure activity. Neurology was on board, EEG was performed. He was initiated on Keppra. He underwent gabapentin withdrawal protocol. Was concern for possible withdrawal induced seizure. He also had troponinemia which was felt to be secondary to myoclonic rhabdo. He was discharged yesterday on 05/15. Last evening he noted to become more short of breath with exertion. is at bedside and notes that when he was sleeping with CPAP last night he was more restless, "gurgling. " He currently complains of shortness breath with exertion, shortness of breath at rest, palpitations. Normally he is able to do ADLs and daily activities without difficulty. Today he became short of breath getting dressed. He is unsure if he had any recent weight change. 2 pillow orthopnea, but denies PND. Denies any recent fever, chills, sweats, lightheadedness, dizziness, chest pain, nausea, vomiting, diarrhea, change in bowel or urinary habits. States he has been abstinent from alcohol since 05/13. He does complain of a cough, wet, not really producible. He notes improvement in breathing after receiving IV Lasix. Denies any history of CHF in the past. No recent sick contacts. Patient elicits he has been taking Lasix 40 mg daily secondary to his chronic lower extremity swelling. He has been off of this medication for approximately 1 week without reason. He was recently started on Keflex, bactrim regimen secondary to RLE foot/toe infection. He has had 3 doses of keflex, and 1 dose of bactrim this morning. Lastly pt was seen by PCP Dr. Bruce today, was sent over to [facility] secondary to hypoxia and concern for PNA. Allergies Allergy/AdvReac Type Severity Reaction Status Date / Time DEIDRE Inhibitors Allergy Unknown COUGH Verified 05/16/18 14:37 Home Medications Home Medications Medication Instructions Recorded Confirmed Type aspirin 81 mg tablet,delayed 81 mg PO QAM 02/04/18 05/16/18 History release clopidogrel 75 mg tablet 75 mg PO QAM 02/04/18 05/16/18 History ferrous sulfate 325 mg (65 mg 325 mg PO QAM tab 02/04/18 05/16/18 History iron) tablet finasteride 5 mg tablet 5 mg PO QAM tab 02/04/18 05/16/18 History folic acid 1 mg tablet 1 mg PO QAM tab 02/04/18 05/16/18 History insulin aspart U-100 100 unit/mL 0 units SQ TIDM ml 02/04/18 05/16/18 History subcutaneous pen levothyroxine 125 mcg tablet 125 mcg PO QAM 02/04/18 05/16/18 History metoprolol succinate ER 100 mg 100 mg PO QAM 02/04/18 05/16/18 History tablet,extended release 24 hr multivitamin with minerals tablet 1 tab PO QAM tab 02/04/18 05/16/18 History ranitidine 300 mg tablet 300 mg PO BID tab 02/04/18 05/16/18 History riboflavin (vitamin B2) 100 mg 100 mg PO QAM tab 02/04/18 05/16/18 History tablet tamsulosin 0.4 mg capsule 0.4 mg PO HS cap 02/04/18 05/16/18 History venlafaxine ER 75 mg 225 mg PO QAM cap 02/04/18 05/16/18 History capsule,extended release 24 hr albuterol sulfate 2 puff INHALATION QID PRN 05/13/18 05/16/18 History losartan 50 mg PO QAM 05/13/18 05/16/18 History magnesium oxide 800 mg PO QAM 05/13/18 05/16/18 History tiotropium bromide [Spiriva 2 puff INHALATION DAILY PRN 05/13/18 05/16/18 History Respimat] cephalexin [Keflex] 500 mg PO QID 7 Days #28 cap 05/15/18 05/16/18 Rx insulin glargine [Lantus U-100 30 units SQ BID 30 Days #10 ml 05/15/18 05/16/18 Rx Insulin] levetiracetam [Keppra] 500 mg PO BID 30 Days #60 tab 05/15/18 05/16/18 Rx sulfamethoxazole-trimethoprim 1 tab PO Q12 7 Days #14 tab 05/15/18 05/16/18 Rx Past Med/Surg History Medical History Altered mental status (Chronic) Aortic root enlargement (Chronic) BPH (benign prostatic hyperplasia) (Chronic) CAD (coronary artery disease) (Chronic) COPD (chronic obstructive pulmonary disease) (Chronic) Dyslipidemia (Chronic) GERD (gastroesophageal reflux disease) (Chronic) HTN (hypertension) (Chronic) Hyponatremia (Chronic) NSTEMI (non-ST elevated myocardial infarction) (Chronic) CHANTELL (obstructive sleep apnea) (Chronic) Type 1 diabetes (Chronic) Surgical History H/O adenoidectomy (Chronic) History of hip replacement (Chronic) History of tonsillectomy (Chronic) Family History Other Family history non-contributory Social History Current Living Situation: Spouse Other Information That Helps Us Care for You: No Feels Safe at Home: Yes Safety Concerns: Feels Safe At This Time Smoking Status: Former smoker Hx Alcohol Use: Yes (8 to 12 oz every day) Alcohol type: beer Alcohol Intake Frequency: 0-2 drinks per day Hx Substance Use: No Beliefs That Will Affect Care: None Preferred Language: Azerbaijani Communication Ability: Effective Review of Systems All systems reviewed & are unremarkable except as noted in HPI & below Physical Exam 2 Vital Signs (Past 24 Hours): Last Vital Signs Temp 36.7 C 05/16/18 15:23 Pulse 85 05/16/18 16:35 Resp 24 05/16/18 16:35 BP 162/95 H 05/16/18 16:35 Pulse Ox 95 05/16/18 16:35 Physical Exam: Gen: WD/WN, morbidly obese M, NAD, sitting up in bed, pleasant , conversing easily, but dsypneic with conversation Head: Normocephalic, bilateral inferior periorbital ecchymoses Eyes: Sclera normal, no conjunctival injection, PERRLA, EOMI ENT: Gross hearing intact, normal pharynx, mucous membranes moist Neck: supple, no adenopathy, No JVD, no bruit, no thyromegaly, Resp: Dimished breath sounds at bases with b/l rhonchi at bases, otherwise clear to auscultation b/l, no wheeze, rales. 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 Extremities: b/l chronic venous stasis changes with +1 pitting edema, b/l pedal pulse +1 and equal Skin: warm, moist, no rash, negative turgor, cap refill < 2sec Neuro: Alert and oriented x 3, speech normal, good mood/affect, cran nerve 2-12 intact grossly : deferred Results & Data Laboratory Results Short CBC 05/16/18 05/16/18 Range/Units 14:51 14:51 WBC 12.64 H (4.8-10.8) K/uL Hgb 10.5 L (14.0-18.0) g/dL Hct 32.4 L (42-52) % Plt Count 296 (130-400) K/uL Troponin I 0.215 H* (0-0.045) ng/ml BMP 05/16/18 14:51 Sodium 132 L Potassium 4.1 Chloride 100 Carbon Dioxide 23 BUN 10 Creatinine 1.12 Glucose 107 H Calcium 8.4 L Cardiac Enzymes 05/16/18 Range/Units 14:51 Troponin I 0.215 H* (0-0.045) ng/ml Liver Function 05/16/18 Range/Units 14:51 Total Bilirubin 0.5 (0.1-1) mg/dl AST 40 H (15-37) U/L ALT 28 (12-78) U/L Alkaline Phosphatase 103 (45-117) U/L Albumin 2.8 L (3.4-5.0) gm/dl Diagnostic Findings CXR: FINDINGS: The heart is enlarged. There are small bilateral pleural effusions. There is radiographic evidence of congestive failure with mild pulmonary edema. There is a retrocardiac opacity consistent with a hiatal hernia.[ IMPRESSION: Interval development of congestive failure, pulmonary edema, and small bilateral pleural effusions. Recent 2D echo 05/13 Impression: revealed LVH, mild hypokinesis of mid apical inferior limon, EF 55- 60% with grade 1 diastolic dysfunction, AV sclerosis. ECG Rate (beats per minute): 80 Rhythm: normal sinus Change: no significant change Additional Comments: QTC 466 Code Status & VTE Plan Code Status Full Code VTE Prophylaxis Plan VTE Prophylaxis will be ordered: Yes Supervising Physician Co-Signing Physician Notes I have seen and examined the patient and have discussed the case with the provider above. I agree with the assessment and plan as stated. Most likely etiology is fluid overload after aggressive hydration in setting of a seizure- induced rhabdomyolysis. Still somewhat winded after 40 mg Lasix dose in the ER. Will give additional dose in the morning. Continue to monitor clinical progression.
[2018-05-16] MEDS ORDERED: GLUCAGON FOR INJ 1 MG VIAL SQ PRN (19:22)
[2018-05-16] MEDS ORDERED: GLUCOSE 40% GEL 15 GM TUBE PO PRN (19:22)
[2018-05-16] MEDS ORDERED: MAGNESIUM HYDROXIDE SUSP 30 ML UDC PO PRN (19:22)
[2018-05-16] MEDS ORDERED: ALUMINUM/MAGNESIUM SUSP 30 ML UDC PO PRN (19:22)
[2018-05-16] MEDS ORDERED: GLUCOSE 10 TABS/TUBE PO PRN (19:22)
[2018-05-16] MEDS ORDERED: ACETAMINOPHEN 325 MG TAB PO PRN (19:22)
[2018-05-16] MEDS ORDERED: CARBOHYDRATES FOR HYPOGLYCEMIA PO PRN (19:22)
[2018-05-16] MEDS ORDERED: POLYETHYLENE (MIRALAX) 17 GM PACK PO PRN (19:22)
[2018-05-16] MEDS ORDERED: ONDANSETRON INJ 2 MG/ML 2 ML VIAL IV PRN (19:22)
[2018-05-16] MEDS ORDERED: DEXTROSE 50% 50 ML SYRINGE IV PRN (19:22)
[2018-05-16] MEDS ORDERED: ALBUTEROL 0.083% NEBU SOLN 3 ML VIAL NEB PRN (19:22)
[2018-05-16 20:10] LABS: Prothrombin Time 10.8 Seconds (9.0-12.0)
[2018-05-16] MEDS: TAMSULOSIN HCL 0.4 MG CAP PO SCH (21:28)
[2018-05-16] MEDS: ENOXAPARIN INJ 40 MG/0.4 ML SYR SQ SCH (21:28)
[2018-05-16] MEDS: SULFAMETHOXAZOLE/TRIMETHOPRIM DS 800/160MG TAB PO SCH (21:29)
[2018-05-16] MEDS: cephALEXin 500 MG CAP PO SCH (21:29)
[2018-05-16] MEDS: levETIRAcetam 500 MG TAB PO SCH (21:30)
[2018-05-16] MEDS: INSULIN GLARGINE SOLOSTAR 100 UNITS/ML 3 ML PEN SC SCH (21:32)
[2018-05-16] MEDS: INSULIN ASPART 100 UNITS/ML 3 ML PEN SC SCH (21:34)
[2018-05-16] MEDS: [UNRECOGNIZED DRUG - OTHER] SCH (23:37)
[2018-05-17 05:56] LABS: Hemoglobin 10.3 g/dL (14.0-18.0); Mean Corpuscular Hgb Conc 32.2 g/dL (32-36); Mean Platelet Volume 10.4 fL (7.4-10.4); Platelet Count 274 K/uL (130-400); RDW Coefficient of Variation 18.2 % (11.5-14.5); RDW Standard Deviation 66.9 fL (36.4-46.3)
[2018-05-17 06:25] LABS: BUN Creatinine Ratio 8.6 (10-20); Calcium 8.4 mg/dl (8.5-10.1); Creatinine Clr Calc Pharmacy 87.6 ml/min; Est GFR (African American) 78.9; Est GFR (Non-African American) 68.1; Potassium 3.4 mmol/L (3.5-5.1)
[2018-05-17] MEDS: LEVOTHYROXINE SODIUM 125 MCG TABLET PO SCH (06:27)
[2018-05-17 06:42] LABS: Troponin I 0.152 ng/ml (0-0.045)
[2018-05-17] MEDS: VENLAFAXINE HCL XR 75 MG CAPXR PO SCH (07:53)
[2018-05-17] MEDS: levETIRAcetam 500 MG TAB PO SCH ×2 (07:54→20:15)
[2018-05-17] MEDS: ASPIRIN 81 MG ECTAB PO SCH (07:54)
[2018-05-17] MEDS: SULFAMETHOXAZOLE/TRIMETHOPRIM DS 800/160MG TAB PO SCH ×2 (07:54→20:15)
[2018-05-17] MEDS: cephALEXin 500 MG CAP PO SCH ×4 (07:54→20:15)
[2018-05-17] MEDS: METOPROLOL SUCC 50MG EXT REL TAB PO SCH (07:54)
[2018-05-17] MEDS: CEROVITE ADV FORMULA TAB PO SCH (07:54)
[2018-05-17] MEDS: FERROUS SULFATE 325 MG TAB PO SCH (07:55)
[2018-05-17] MEDS: CLOPIDOGREL BISULFATE 75 MG TAB PO SCH (07:55)
[2018-05-17] MEDS: FOLIC ACID 1 MG TAB PO SCH (07:55)
[2018-05-17] MEDS: MAGNESIUM OXIDE 400 MG TAB PO SCH (07:55)
[2018-05-17] MEDS: FINASTERIDE 5 MG TAB PO SCH (07:55)
[2018-05-17] MEDS: POTASSIUM CHLORIDE 20 MEQ TABCR PO SCH (07:56)
[2018-05-17] MEDS: FUROSEMIDE 40 MG in SYRINGE 0 ML IV SCH ×2 (07:56→16:52)
[2018-05-17] MEDS: INSULIN ASPART 100 UNITS/ML 3 ML PEN SC SCH ×4 (07:57→20:21)
[2018-05-17] MEDS: INSULIN GLARGINE SOLOSTAR 100 UNITS/ML 3 ML PEN SC SCH ×2 (07:58→20:17)
[2018-05-17] MEDS: [UNRECOGNIZED DRUG - OTHER] SCH ×3 (07:59→22:22)
[2018-05-17] MEDS ORDERED: FUROSEMIDE 40 MG in SYRINGE 0 ML IV SCH (09:00)
[2018-05-17] MEDS ORDERED: RIBOFLAVIN 100 MG PO SCH (09:00)
[2018-05-17] MEDS ORDERED: LOSARTAN POTASSIUM 50 MG TAB PO SCH (09:00)
--- NOTE | 2018-05-17 10:16 | Cardiology Consultation ---
Date of Consultation May 17, 2018 Assessment & Plan (1) Acute diastolic CHF (congestive heart failure): I would speculate that the patient became volume overloaded while his home furosemide dose was held for several days. In addition, his blood pressure is elevated, probably contributing to elevated filling pressures. I reviewed his recent echocardiogram performed several days ago, and mild concentric left ventricular hypertrophy is present. Despite the chronic findings of right coronary artery territory wall motion abnormality his ejection fraction is preserved. But the echo findings are certainly consistent with him being predisposed to volume overload. Agree with current dose of IV furosemide 40 mg 2 times per day. His blood pressure compared to yesterday still elevated but certainly trending toward improvement. At this time, we will continue with the furosemide, as well as his prior to hospital dose of metoprolol and losartan. He has had issues with electrolyte abnormalities in the past, and until we are certain that he is going to be free of alcohol, I think we need to make sure that his medication regimen remains as straightforward as possibleTo assist in successful compliance as an outpatient. (2) CAD (coronary artery disease): Continue chronic aspirin and clopidogrel, metoprolol. He is supposed to be on atorvastatin 40 mg daily, I am going to reinitiate this. I am not certain why it was discontinued, but his recent LFTs are stable. (3) Aortic root enlargement: Plan follow-up as an outpatient, echo images are insufficient for allowing measurement, will plan for CT in the future, whether it is performed with and without contrast will depend upon where his kidney function lands post diuretics. Agree with Lovenox for DVT prophylaxis History of Present Illness Attending Physician: Ruchi Eastman, DO History of Present Illness Damon Hatfield is a 62 year old male seen in cardiology consultation per the [facility] suspected diastolic heart failure. The patient is well-known to the undersigned as I have followed him in the past on both an inpatient and outpatient basis. I asked him most recently seen him as an outpatient on . He failed to keep an appointment scheduled for 05/11/17 and is not been seen in cardiology follow-up in the interim. His cardiac history as delineated below. The patient was recently admitted to [facility] after a loss of consciousness episode that took place on 05/13/18, having been found by his spouse to have lost consciousness and falling from the toilet with resultant facial trauma. He was followed by the hospitalist service as well as neurology and was felt that he perhaps had an alcohol related seizure and initiation of Keppra was noted. There is also concern that he had a past loss of consciousness episode due to orthostatic hypotension, and per my review of the records, it appears that during that several days of hospital stay his home dose of furosemide 40 mg daily was held. He was subsequently discharged on 05/15/18, but shortly after arriving home he noted progressive shortness of breath and felt that he could not catch his breath. He presented again to the emergency room therefore the next day yesterday 05/16/18 and by clinical presentation as well as chest x-ray findings it was felt that he was volume overloaded. He received IV furosemide with improvement in his symptoms. Currently he is comfortable lying in his hospital bed. Telemetry reveals stable sinus rhythm without any arrhythmias. EKG performed on arrival yesterday 05/16/2018 at 1433 revealed normal sinus rhythm 85 bpm, no significant ST changes. Second EKG performed 05/17/18 and reviewed independently reveals normal sinus rhythm, borderline QT prolongation of 481 ms, no acute ST changes. The patient denies any recent chest pain. The patient has a long-standing history of type 1 diabetes mellitus. His cardiac history dates back to August, when he was initially admitted for diabetic ketoacidosis complicated by a myocardial infarction, paroxysmal atrial fibrillation, and acute kidney injury. He was confused during the hospital stay. He came to recognition at that time that he had been drinking alcohol heavily at home and he went into withdrawal during the hospitalization. Due to elevated troponin and EKG and echocardiogram abnormalities the patient underwent an emergent cardiac catheterization on 08/09/14 demonstrating 50-60% serial mid RCA lesions with distal right posterior lateral branch lesion felt to be the culprit and not amenable to percutaneous revascularization. There is also a 30% mid LAD lesion. Medical management was pursued at that time. His most recent ischemic workup took place as an outpatient in November 2016 when he underwent a pharmacologic nuclear stress test that revealed evidence of a inferior inferolateral scar with a very subtle degree of superimposed ischemia, normal perfusion in the remaining myocardial segments including the LAD territory. Ongoing medical management was recommended including chronic dual antiplatelet therapy. An echocardiogram was performed as an outpatient in November 2016 with findings of mild inferior wall hypokinesis with preserved LVEF, the aortic root was dilated to a moderate degree at 4.4 cm in the proximal ascending aorta was mildly dilated at 3.9 cm. During the patient's recent stay for his loss of consciousness episode on [facility] wall hypokinesis, LVEF 55-60%, moderate concentric left ventricular hypertrophy, diastolic dysfunction, the aortic root was not visualized well enough to allow Diagnostic measurements per my interpretation. The patient has a long-standing history of alcohol use. He has been counseled regarding this in the past. In 2017 he told me that he was drinking a half dozen nonalcoholic beer drinks per day as well as 6 shots of Frontstart 100 proof liquor. Per discussion with him today, it sounds as if his alcohol intake has been somewhat similar, he has ceased since 05/13/18,.Stated that he did not drink at home after discharge. Allergies Allergy/AdvReac Type Severity Reaction Status Date / Time DEIDRE Inhibitors Allergy Unknown COUGH Verified 05/16/18 14:37 Home Medications Home Medications Medication Instructions Recorded Confirmed Type aspirin 81 mg tablet,delayed 81 mg PO QAM 02/04/18 05/16/18 History release clopidogrel 75 mg tablet 75 mg PO QAM 02/04/18 05/16/18 History ferrous sulfate 325 mg (65 mg 325 mg PO QAM tab 02/04/18 05/16/18 History iron) tablet finasteride 5 mg tablet 5 mg PO QAM tab 02/04/18 05/16/18 History folic acid 1 mg tablet 1 mg PO QAM tab 02/04/18 05/16/18 History insulin aspart U-100 100 unit/mL 0 units SQ TIDM ml 02/04/18 05/16/18 History subcutaneous pen levothyroxine 125 mcg tablet 125 mcg PO QAM 02/04/18 05/16/18 History metoprolol succinate ER 100 mg 100 mg PO QAM 02/04/18 05/16/18 History tablet,extended release 24 hr multivitamin with minerals tablet 1 tab PO QAM tab 02/04/18 05/16/18 History ranitidine 300 mg tablet 300 mg PO BID tab 02/04/18 05/16/18 History riboflavin (vitamin B2) 100 mg 100 mg PO QAM tab 02/04/18 05/16/18 History tablet tamsulosin 0.4 mg capsule 0.4 mg PO HS cap 02/04/18 05/16/18 History venlafaxine ER 75 mg 225 mg PO QAM cap 02/04/18 05/16/18 History capsule,extended release 24 hr albuterol sulfate 2 puff INHALATION QID PRN 05/13/18 05/16/18 History losartan 50 mg PO QAM 05/13/18 05/16/18 History magnesium oxide 800 mg PO QAM 05/13/18 05/16/18 History tiotropium bromide [Spiriva 2 puff INHALATION DAILY PRN 05/13/18 05/16/18 History Respimat] cephalexin [Keflex] 500 mg PO QID 7 Days #28 cap 05/15/18 05/16/18 Rx insulin glargine [Lantus U-100 30 units SQ BID 30 Days #10 ml 05/15/18 05/16/18 Rx Insulin] levetiracetam [Keppra] 500 mg PO BID 30 Days #60 tab 05/15/18 05/16/18 Rx sulfamethoxazole-trimethoprim 1 tab PO Q12 7 Days #14 tab 05/15/18 05/16/18 Rx Patient History Medical History Altered mental status (Chronic) Aortic root enlargement (Chronic) BPH (benign prostatic hyperplasia) (Chronic) CAD (coronary artery disease) (Chronic) COPD (chronic obstructive pulmonary disease) (Chronic) Dyslipidemia (Chronic) GERD (gastroesophageal reflux disease) (Chronic) HTN (hypertension) (Chronic) Hyponatremia (Chronic) NSTEMI (non-ST elevated myocardial infarction) (Chronic) CHANTELL (obstructive sleep apnea) (Chronic) Type 1 diabetes (Chronic) Surgical History H/O adenoidectomy (Chronic) History of hip replacement (Chronic) History of tonsillectomy (Chronic) Family History Other Family history non-contributory Social History Current Living Situation: Spouse Other Information That Helps Us Care for You: No Feels Safe at Home: Yes Safety Concerns: Feels Safe At This Time Smoking Status: Former smoker Hx Alcohol Use: Yes (8 to 12 oz every day) Alcohol type: beer Alcohol Intake Frequency: 0-2 drinks per day Hx Substance Use: No Beliefs That Will Affect Care: None Preferred Language: Tamazight Communication Ability: Effective Review of Systems 10 point review of systems is reviewed and is negative with the exception of the above Physical Exam 2 Vital Signs (Past 24 Hours): Last Vital Signs Temp 36.4 C L 05/17/18 07:01 Pulse 74 05/17/18 07:01 Resp 24 05/17/18 07:01 BP 163/85 H 05/17/18 07:01 Pulse Ox 95 05/17/18 08:00 Physical Exam: General: no acute distress and stated age Eyes: conjunctiva are pink and non-injected, sclera clear Neck: normal jugular venous pulse, no hepatojugular reflux Chest: normal shape and normal respiratory effort Lungs: clear to auscultation and percussion Cardiac Exam: - regular heart sounds, no murmurs, rubs, or gallops, no jugular venous distention Abdomen: abdomen soft, non-tender, no abnormal masses and no hepatosplenomegaly Musculoskeletal: no gait disturbance, no weakness Extremities: no edema and no cyanosis Neuro:awake, coversant, follows commands, no focal motor deficits Psych: appropriate affect and insight. Results & Data Laboratory Results Patient has had serial troponin measurements from 05/13 until 05/17/18: The troponin peaked on 05/13/18 11:42 AM at 0.377 NG per mL, is actually lower today at 0.152 NG per mL Diagnostic Findings Lower extremity venous duplex performed 05/13/18 revealed no evidence of right lower extremity DVT Radiology report of chest x-ray performed 05/16/18 describes interval development of congestive heart failure, pulmonary edema, and small bilateral pleural effusions compared to 05/13/18
--- NOTE | 2018-05-17 10:48 | Hospitalist Progress Note ---
Date of Service May 17, 2018 Assessment & Plan (1) Acute diastolic CHF (congestive heart failure): On last admission to the hospital he had a syncopal episode [employer] with clinical picture consistent with a repeat seizure. He was loaded on Keppra and continued on twice daily dosing. In the setting of seizure, his troponin and CK were elevated. He was started on IVF with Lasix being discontinued during his hospital stay last week. The IVF were stopped but then restarted when the CK jac, and they were continued for two more days. Lasix was held at discharge until follow-up and recheck of CK as outpatient. Lipitor was also held because of this. However, one day after discharge, the volume and removal of Lasix was too much and he became fluid overloaded. Lasix IV was given overnight with some improvement in breathing, however, he is clearly not at baseline. Cardiology was consulted. He will cont on IV diuretic therapy. Cont daily weights and low sodium diet. (2) Cellulitis of right lower extremity without foot: Improved, diagnosed last week while hospitalized, cont Bactrim DS and Keflex to complete 7 day course (3) Seizure: continue keppra, seizure precautions in setting of some missed doses when he went home, prior to arrival in ER (4) CAD (coronary artery disease): stable, cont AA, BB, losartan. Cards following. (5) HTN (hypertension): Trending upward today, increased Losartan from 50 to 100. Hydralazine if needed. (6) Diabetes: As a result of hypoglycemia on last admission, his dose of Lantus was decreased from 90U qAM and 30 U qPM to 30 Units BID. Cont carb coverage. Pt states that he is "being treated as a Type I diabetic." Would have a low threshold to involve pharmacy for assistance with titration efforts. (7) COPD (chronic obstructive pulmonary disease): Stable, no wheezing on exam. Cont Spiriva, albuterol PRN. (8) Hypothyroidism: continue levothyroxine (9) CHANTELL (obstructive sleep apnea): cpap at HS (10) BPH (benign prostatic hyperplasia): continue flomax, finasteride (11) Diabetic foot ulcer: New diabetic foot ulcer found during last hospitalization which had occurred [employer], is not superfically infected and is in an area consistent with his shoes being too tight. He is seen at the wound clinic for another diabetic foot ulcer which has healed. However, they are not aware of this new one. He will need to follow-up with them on discharge. Neuropathic precautions. (12) DVT prophylaxis: -lovenox 40mg sq q24hr, TEDS Disposition: D/C to home when medically able Follow up: with PCP Dr. Bruce, Foot/wound clinic, Neurology Shaniqua Prescott PA-C Patient was seen in collaboration with Dr. Eastman, please see addendum regarding further assessment and plan. Subjective 62 yo alcoholic diabetic obese man with hospitalization last week after syncope 2/2 seizure. He was readmitted the day after discharge for acute volume overload likely related to IVF administration and diuretic restriction in the setting of a seizure-induced rhabdo. 2-3 L off overnight with IV Lasix and he is feeling better but not quite back to baseline. Denies chest pain. Tolerating PO. Physical Exam 2 Vital Signs (Past 24 Hours): Last Vital Signs Temp 36.4 C L 05/17/18 07:01 Pulse 74 05/17/18 07:01 Resp 24 05/17/18 07:01 BP 163/85 H 05/17/18 07:01 Pulse Ox 95 05/17/18 08:00 CONSTITUTIONAL: obese, vitals as above, generally well-appearing EYES: normal conjuctivae, no scleral icterus ENT: MMM RESPIRATORY: clear to auscultation bilaterally, no crackles, rales or wheezes, normal respiratory effort CARDIOVASCULAR: regular rate and rhythm, S1 and 2 heard without murmurs, gallops or rubs, no JVD, no peripheral edema GASTROINTESTINAL: normal bowel sounds, soft, nontender, nondistended MUSCULOSKELETAL: strength 5/5 throughout, small abrasion on nasal bridge. SKIN: warm and dry; Closed diabetic foot ulcer on underside of R great toe. Stag II ulcer on R great toe interdigital space with second toe with granulation tissue and no surrounding erythema, min drainage. NEUROLOGIC: CN 2-12 grossly intact, normal cognition, normal speech PSYCHIATRIC: alert cooperative and oriented to person, place and time. Results & Data Laboratory Results Short CBC 05/17/18 Range/Units 05:39 WBC 6.70 (4.8-10.8) K/uL Hgb 10.3 L (14.0-18.0) g/dL Hct 32.0 L (42-52) % Plt Count 274 (130-400) K/uL BMP 05/17/18 05:39 Sodium 136 Potassium 3.4 L D Chloride 102 Carbon Dioxide 23 BUN 10 Creatinine 1.16 Glucose 88 Calcium 8.4 L Cardiac Enzymes 05/16/18 05/17/18 Range/Units 21:04 05:39 Troponin I 0.184 H* 0.152 H* (0-0.045) ng/ml Medications Administered Current Inpatient Medications Acetaminophen (Tylenol) 650 mg PO Q4H PRN PRN Reason: Pain or Fever Stop: 06/15/18 19:21 Al Hydrox/Mg Hydrox/Simethicone (Maalox) 15 ml PO Q4H PRN PRN Reason: Dyspepsia Stop: 06/15/18 19:21 Albuterol (Ventolin 0.083%) 2.5 mg NEB Q6R PRN PRN Reason: Shortness Of Breath Or Wheezin Stop: 06/15/18 19:21 Aspirin (Ecotrin) 81 mg PO [facility] Stop: 06/16/18 08:59 Last Admin: 05/17/18 07:54 Dose: 81 mg Atorvastatin Calcium (Lipitor) 40 mg PO [facility] Stop: 06/16/18 10:44 Last Admin: 05/17/18 11:52 Dose: 40 mg Cephalexin HCl (Keflex) 500 mg PO QID [facility] Stop: 05/22/18 21:01 Last Admin: 05/17/18 20:15 Dose: 500 mg [facility]) [facility] Stop: 06/16/18 08:59 Last Admin: 05/17/18 07:55 Dose: 75 mg Dextrose (Dextrose 50%) 25 - 50 ml IV UD PRN; Protocol PRN Reason: Hypoglycemia Protocol Stop: 06/15/18 19:21 Enoxaparin Sodium (Lovenox) 40 mg SQ Q24H [facility] Stop: 06/15/18 20:59 Last Admin: 05/17/18 20:18 Dose: 40 mg Ferrous Sulfate (Feosol) 325 [facility] Stop: 06/16/18 08:59 Last Admin: 05/17/18 07:55 Dose: 325 mg Finasteride (Proscar) 5 mg PO [facility] Stop: 06/16/18 08:59 Last Admin: 05/17/18 07:55 Dose: 5 mg Folic Acid (Folvite) 1 mg PO QAM [facility] Stop: 06/16/18 08:59 Last Admin: 05/17/18 07:55 Dose: 1 mg Glucagon (Glucagen) 1 mg SQ UD PRN; Protocol PRN Reason: Hypoglycemia Protocol Stop: 06/15/18 19:21 Glucose (Dex4 Glucose) 4 - 8 tabs PO UD PRN; Protocol PRN Reason: Hypoglycemia Protocol Stop: 06/15/18 19:21 Glucose (Glucose 40%) 15 - 30 gm PO UD PRN; Protocol PRN Reason: Hypoglycemia Protocol Stop: 06/15/18 19:21 Furosemide 40 mg/ Syringe 4 mls @ 4 mls/min IV BID17 [facility] Stop: 06/16/18 08:59 Last Admin: 05/17/18 16:52 Dose: 4 mls/min Insulin Aspart (Novolog Flexpen) 0 units SC ACHS [facility] Stop: 06/15/18 20:59 Last Admin: 05/17/18 20:21 Dose: 5 units Insulin Glargine (Lantus Solostar Pen) 30 units SC Q12H [facility] Stop: 06/15/18 19:59 Last Admin: 05/17/18 20:17 Dose: 30 units Levetiracetam (Keppra) 500 mg PO BID [facility] Stop: 06/15/18 20:59 Last Admin: 05/17/18 20:15 Dose: 500 mg Levothyroxine Sodium (Synthroid) 125 mcg PO DAILYBB [facility] Stop: 06/16/18 06:29 Last Admin: 05/17/18 06:27 Dose: 125 mcg Losartan Potassium (Cozaar) 100 mg PO QAM [facility] Stop: 06/17/18 08:59 Magnesium Hydroxide (Milk Of Magnesia) 30 ml PO Q12H PRN PRN Reason: Constipation Stop: 06/15/18 19:21 Magnesium Oxide (Mag-Ox) 800 mg PO QAM [facility] Stop: 06/16/18 08:59 Last Admin: 05/17/18 07:55 Dose: 800 mg Metoprolol Succinate (Toprol Xl) 100 mg PO QAM [facility] Stop: 06/16/18 08:59 Last Admin: 05/17/18 07:54 Dose: 100 mg Miscellaneous (Carbohydrates For Hypoglycemia) 15 - 30 gm PO UD PRN PRN Reason: Hypoglycemia Treatment Stop: 06/15/18 19:21 Miscellaneous (Order Awaiting Action) 1 ea N/A QS [facility] Stop: 06/16/18 00:00 Last Admin: 05/17/18 16:50 Dose: Not Given Multivitamins/Minerals (Multivitamin W/ Minerals) 1 tab PO QAM [facility] Stop: 06/16/18 08:59 Last Admin: 05/17/18 07:54 Dose: 1 tab Ondansetron HCl (Zofran) 4 mg IV Q6H PRN PRN Reason: Nausea Stop: 06/15/18 19:21 Polyethylene Glycol (Miralax Powder Packet) 17 gm PO DAILY PRN PRN Reason: Constipation Stop: 06/15/18 19:21 Potassium Chloride (Klor-Con M20) 20 meq PO QAM [facility] Stop: 06/16/18 08:59 Last Admin: 05/17/18 07:56 Dose: 20 meq Ranitidine HCl (Zantac) 300 mg PO BID [facility] Stop: 06/15/18 20:59 Last Admin: 05/17/18 20:16 Dose: 300 mg Tamsulosin HCl (Flomax) 0.4 mg PO HS [facility] Stop: 06/15/18 20:59 Last Admin: 05/17/18 20:15 Dose: 0.4 mg Trimethoprim/Sulfamethoxazole (Septra Ds 800/160mg Tab) 1 tab PO Q12 [facility] Stop: 05/22/18 21:01 Last Admin: 05/17/18 20:15 Dose: 1 tab Venlafaxine HCl (Effexor Extended Release) 225 mg PO QAM [facility] Stop: 06/16/18 08:59 Last Admin: 05/17/18 07:53 Dose: 225 mg
[2018-05-17] MEDS: ATORVASTATIN 40 MG TAB PO SCH (11:52)
--- NOTE | 2018-05-17 14:34 | Emergency Department Note ---
Entered by Sara Tucker acting as a scribe for Tam Lima MD History of Present Illness General Chief complaint: Flu Like Symptoms Stated complaint: PNEUMONIA SENT BY DR SELMA NASH Time Seen by Provider: 05/16/18 14:03 Source: patient and family History of Present Illness Onset (ago): day(s) (yesterday) Location: chest Pain Consistency: + other (worsening) Maximum Pain Intensity: 3 Quality: + other (shortness of breath) Associated symptoms: + cough (productive) The patient is a 62 year old male with a past medical history of GERD , Diabetes, BPH, CHANTELL, COPD, CAD, NSTEMI, and HTN who presents to the Emergency Room with complaints of worsening shortness of breath starting yesterday. The patient states that he was recently hospitalized for having a seizure with alcohol withdraw. He states that he was just discharged yesterday. The patient s states that once he got home he started having shortness of breath. She states that this morning she took him to his PCP and they did a chest x-ray that showed pneumonia. She states that they gave the option to be treated as an outpatient, but she states that they felt more comfortable coming to the ED given his past medical history to handle this. The patient complains of an intermittent productive cough. Home Medications Home Medications Medication Instructions Recorded Confirmed Type aspirin 81 mg tablet,delayed 81 mg PO QAM 02/04/18 05/16/18 History release clopidogrel 75 mg tablet 75 mg PO QAM 02/04/18 05/16/18 History ferrous sulfate 325 mg (65 mg 325 mg PO QAM tab 02/04/18 05/16/18 History iron) tablet finasteride 5 mg tablet 5 mg PO QAM tab 02/04/18 05/16/18 History folic acid 1 mg tablet 1 mg PO QAM tab 02/04/18 05/16/18 History insulin aspart U-100 100 unit/mL 0 units SQ TIDM ml 02/04/18 05/16/18 History subcutaneous pen levothyroxine 125 mcg tablet 125 mcg PO QAM 02/04/18 05/16/18 History metoprolol succinate ER 100 mg 100 mg PO QAM 02/04/18 05/16/18 History tablet,extended release 24 hr multivitamin with minerals tablet 1 tab PO QAM tab 02/04/18 05/16/18 History ranitidine 300 mg tablet 300 mg PO BID tab 02/04/18 05/16/18 History riboflavin (vitamin B2) 100 mg 100 mg PO QAM tab 02/04/18 05/16/18 History tablet tamsulosin 0.4 mg capsule 0.4 mg PO HS cap 02/04/18 05/16/18 History venlafaxine ER 75 mg 225 mg PO QAM cap 02/04/18 05/16/18 History capsule,extended release 24 hr albuterol sulfate 2 puff INHALATION QID PRN 05/13/18 05/16/18 History losartan 50 mg PO QAM 05/13/18 05/16/18 History magnesium oxide 800 mg PO QAM 05/13/18 05/16/18 History tiotropium bromide [Spiriva 2 puff INHALATION DAILY PRN 05/13/18 05/16/18 History Respimat] cephalexin [Keflex] 500 mg PO QID 7 Days #28 cap 05/15/18 05/16/18 Rx insulin glargine [Lantus U-100 30 units SQ BID 30 Days #10 ml 05/15/18 05/16/18 Rx Insulin] levetiracetam [Keppra] 500 mg PO BID 30 Days #60 tab 05/15/18 05/16/18 Rx sulfamethoxazole-trimethoprim 1 tab PO Q12 7 Days #14 tab 05/15/18 05/16/18 Rx Allergies Allergy/AdvReac Type Severity Reaction Status Date / Time DEIDRE Inhibitors Allergy Unknown COUGH Verified 05/16/18 14:37 Past Med/Surg History Medical History Altered mental status (Chronic) Aortic root enlargement (Chronic) BPH (benign prostatic hyperplasia) (Chronic) CAD (coronary artery disease) (Chronic) COPD (chronic obstructive pulmonary disease) (Chronic) Dyslipidemia (Chronic) GERD (gastroesophageal reflux disease) (Chronic) HTN (hypertension) (Chronic) Hyponatremia (Chronic) NSTEMI (non-ST elevated myocardial infarction) (Chronic) CHANTELL (obstructive sleep apnea) (Chronic) Type 1 diabetes (Chronic) Surgical History H/O adenoidectomy (Chronic) History of hip replacement (Chronic) History of tonsillectomy (Chronic) Family History Other Family history non-contributory Social History Current Living Situation: Spouse Other Information That Helps Us Care for You: No Feels Safe at Home: Yes Safety Concerns: Feels Safe At This Time Smoking Status: Former smoker Hx Alcohol Use: Yes (8 to 12 oz every day) Alcohol type: beer Alcohol Intake Frequency: 0-2 drinks per day Hx Substance Use: No Beliefs That Will Affect Care: None Preferred Language: Marshallese Communication Ability: Effective Review of Systems See HPI for pertinent positives & negatives. and A total of 10 systems reviewed and were otherwise negative Physical Exam Vital Signs Vital Signs - 24 hr 05/16/18 14:41 05/16/18 15:23 05/16/18 16:35 Temperature 36.7 C Temperature Source Oral Pulse Rate Pulse Rate [Finger] 86 85 Pulse Rhythm [Finger] Regular Regular Pulse Strength [Finger] Normal Normal Respiratory Rate 22 24 Respiratory Effort / Characteristics Non-Labored Spontaneous Non-Labored Spontaneous Respiratory Depth Normal Normal Respiratory Pattern Regular Regular Blood Pressure [Left Arm] Blood Pressure [Right Arm] 172/91 H 162/95 H Blood Pressure Mean [Left Arm] Blood Pressure Mean [Right Arm] 118 117 Blood Pressure Position [Left Arm] Blood Pressure Position [Right Arm] Sitting Sitting Pulse Oximetry 88 L 95 95 Pulse Oximetry [Left] Oxygen Delivery Method Room Air Nasal Cannula Nasal Cannula Oxygen Delivery Method [Left] Oxygen Flow Rate 2.5 2 Oxygen Flow Rate [Left] 05/16/18 17:51 05/16/18 19:05 05/16/18 19:22 Temperature 36.6 C Temperature Source Oral Pulse Rate Pulse Rate [Finger] 82 89 Pulse Rhythm [Finger] Regular Regular Pulse Strength [Finger] Normal Respiratory Rate 20 20 Respiratory Effort / Characteristics Non-Labored Spontaneous Non-Labored Spontaneous Respiratory Depth Normal Normal Respiratory Pattern Regular Regular Blood Pressure [Left Arm] Blood Pressure [Right Arm] 146/88 H 154/95 H Blood Pressure Mean [Left Arm] Blood Pressure Mean [Right Arm] 107 114 Blood Pressure Position [Left Arm] Blood Pressure Position [Right Arm] Sitting Sitting Pulse Oximetry 96 95 Pulse Oximetry [Left] 92 Oxygen Delivery Method Nasal Cannula Nasal Cannula Oxygen Delivery Method [Left] Nasal Cannula Oxygen Flow Rate 2 2 Oxygen Flow Rate [Left] 2 05/16/18 19:54 05/16/18 23:11 05/17/18 00:00 Temperature 36.7 C Temperature Source Oral Pulse Rate 87 Pulse Rate [Finger] 88 Pulse Rhythm [Finger] Pulse Strength [Finger] Respiratory Rate 22 Respiratory Effort / Characteristics Non-Labored Spontaneous SOB on Exertion SOB on Exertion Respiratory Depth Deep Normal Respiratory Pattern Regular Tachypnea Blood Pressure [Left Arm] 157/90 H Blood Pressure [Right Arm] Blood Pressure Mean [Left Arm] 112 Blood Pressure Mean [Right Arm] Blood Pressure Position [Left Arm] Lying Blood Pressure Position [Right Arm] Pulse Oximetry 90 Pulse Oximetry [Left] Oxygen Delivery Method Nasal Cannula Nasal Cannula Nasal Cannula Oxygen Delivery Method [Left] Oxygen Flow Rate 2 2 2 Oxygen Flow Rate [Left] 05/17/18 02:52 05/17/18 04:00 05/17/18 07:01 Temperature 36.6 C 36.4 C L Temperature Source Oral Oral Pulse Rate Pulse Rate [Finger] 80 74 Pulse Rhythm [Finger] Regular Pulse Strength [Finger] Normal Respiratory Rate 20 24 Respiratory Effort / Characteristics SOB on Exertion Non-Labored Respiratory Depth Normal Normal Respiratory Pattern Regular Tachypnea Blood Pressure [Left Arm] 156/82 H 163/85 H Blood Pressure [Right Arm] Blood Pressure Mean [Left Arm] 106 111 Blood Pressure Mean [Right Arm] Blood Pressure Position [Left Arm] Lying Lying Blood Pressure Position [Right Arm] Pulse Oximetry 92 92 Pulse Oximetry [Left] Oxygen Delivery Method Nasal Cannula Nasal Cannula Nasal Cannula Oxygen Delivery Method [Left] Oxygen Flow Rate 2 2 2 Oxygen Flow Rate [Left] 05/17/18 08:00 05/17/18 12:34 Temperature 36.5 C Temperature Source Oral Pulse Rate Pulse Rate [Finger] 76 Pulse Rhythm [Finger] Pulse Strength [Finger] Respiratory Rate 18 Respiratory Effort / Characteristics Non-Labored Respiratory Depth Normal Respiratory Pattern Blood Pressure [Left Arm] 149/76 H Blood Pressure [Right Arm] Blood Pressure Mean [Left Arm] 100 Blood Pressure Mean [Right Arm] Blood Pressure Position [Left Arm] Blood Pressure Position [Right Arm] Pulse Oximetry 98 Pulse Oximetry [Left] 95 Oxygen Delivery Method Nasal Cannula Oxygen Delivery Method [Left] Nasal Cannula Oxygen Flow Rate 2 Oxygen Flow Rate [Left] GENERAL: Well appearing, well nourished, NAD, non-toxic, nasal canula in place. EYE EXAM: Normal conjunctiva. PERRL, no anisocoria and EOM's grossly intact w/o pain. FACE: Some periorbital ecchymosis bilaterally. OROPHARYNX: No exudate, posterior pharynx is clear, no tonsillar/uvular deviation or swelling. NECK: Supple, no nuchal rigidity, no adenopathy, non-tender. No signs of meningismus. LUNGS: Crackles throughout the lungs. Normal chest wall mechanics HEART: NSR, no MRG. ABDOMEN: Abdomen soft, non-tender, normo-active bowel sounds, no masses, no rebound or guarding. BACK: No CVA TTP SKIN: No rashes and no bruising. UPPER EXTREMITIES: Upper extremities are grossly normal with the exception of a absent right second digit. LOWER EXTREMITIES: Trace LE edema. No calf pain. Bandage on the right first great toe. NEURO EXAM: Cranial nerves II-XII grossly intact, normal speech, 5/5 strength in b/l upper and lower extremities, moves all 4 extremities on command w/o issue , no sensory deficits. Course 1404: The resident, Dr. Tiffany Yousif, initially saw the patient and performed her exam at this time. 1429: Past medical records reviewed. The patient was evaluated in room C7, and a complete history and physical examination were performed. 1551: The patient was reevaluated and updated by Dr. Tiffany Yousif at this time. She discussed the treatment plan with him. He verbally agrees and understands. 1646: Dr. Tiffany Yousif reviewed the patient's case with Dr. Cat Mccarty. She will evaluate the patient for further management. Consultations Consultation #1: Dr. Tiffany Yousif reviewed the patient's case with Dr. Cat Mccarty. She will evaluate the patient for further management. Time: 16:46 Administered Medications Aspirin (Ecotrin) 81 mg PO [facility] Stop: 06/16/18 08:59 Last Admin: 05/17/18 07:54 Dose: 81 mg Atorvastatin Calcium [facility]) [facility] [place] Stop: 06/16/18 10:44 Last Admin: 05/17/18 11:52 Dose: 40 mg Cephalexin HCl (Keflex) 500 mg PO QID [facility] Stop: 05/22/18 21:01 Last Admin: 05/17/18 11:52 Dose: 500 mg Admin: 05/17/18 07:54 Dose: 500 mg Admin: 05/16/18 21:29 Dose: 500 mg Clopidogrel Bisulfate (Plavix) 75 mg PO QAM [facility] Stop: 06/16/18 08:59 Last Admin: 05/17/18 07:55 Dose: 75 mg Enoxaparin Sodium (Lovenox) 40 mg SQ Q24H [facility] Stop: 06/15/18 20:59 Last Admin: 05/16/18 21:28 Dose: 40 mg Ferrous Sulfate (Feosol) [facility] [place] Stop: 06/16/18 08:59 Last Admin: 05/17/18 07:55 Dose: 325 mg Finasteride (Proscar) 5 mg PO QAM [facility] Stop: 06/16/18 08:59 Last Admin: 05/17/18 07:55 Dose: 5 mg Folic Acid (Folvite) [facility] [place] Stop: 06/16/18 08:59 Last Admin: 05/17/18 07:55 Dose: 1 mg Furosemide 40 mg/ Syringe 4 mls @ 4 mls/min IV BID17 [facility] Stop: 06/16/18 08:59 Last Admin: 05/17/18 07:56 Dose: 4 mls/min Insulin Aspart (Novolog Flexpen) 0 units SC ACHS [facility] Stop: 06/15/18 20:59 Last Admin: 05/17/18 11:53 Dose: 4 units Admin: 05/17/18 07:57 Dose: 5 units Admin: 05/16/18 21:34 Dose: 3 units Insulin Glargine (Lantus Solostar Pen) 30 units SC Q12H [facility] Stop: 06/15/18 19:59 Last Admin: 05/17/18 07:58 Dose: 30 units Admin: 05/16/18 21:32 Dose: 30 units Levetiracetam (Keppra) 500 mg PO BID [facility] Stop: 06/15/18 20:59 Last Admin: 05/17/18 07:54 Dose: 500 mg Admin: 05/16/18 21:30 Dose: 500 mg Levothyroxine Sodium (Synthroid) 125 mcg PO DAILYBB [facility] Stop: 06/16/18 06:29 Last Admin: 05/17/18 06:27 Dose: 125 mcg Losartan Potassium (Cozaar) [facility] [place] Stop: 06/16/18 08:59 Last Admin: 05/17/18 07:55 Dose: 50 mg Magnesium Oxide (Mag-Ox) 800 mg PO QAM [facility] Stop: 06/16/18 08:59 Last Admin: 05/17/18 07:55 Dose: 800 mg Metoprolol Succinate (Toprol Xl) [facility] [place] Stop: 06/16/18 08:59 Last Admin: 05/17/18 07:54 Dose: 100 mg Miscellaneous (Order Awaiting Action) 1 ea N/A QS [facility] Stop: 06/16/18 00:00 Last Admin: 05/17/18 07:59 Dose: Not Given Admin: 05/16/18 23:37 Dose: Not Given Multivitamins/Minerals (Multivitamin W/ Minerals) [facility] [place] Stop: 06/16/18 08:59 Last Admin: 05/17/18 07:54 Dose: 1 tab Potassium Chloride (Klor-Con M20) 20 meq [facility] [place] Stop: 06/16/18 08:59 Last Admin: 05/17/18 07:56 Dose: 20 meq Ranitidine HCl (Zantac) 300 mg PO BID [facility] Stop: 06/15/18 20:59 Last Admin: 05/17/18 07:56 Dose: 300 mg Admin: 05/16/18 21:31 Dose: 300 mg Tamsulosin HCl (Flomax) 0.4 mg PO HS [facility] Stop: 06/15/18 20:59 Last Admin: 05/16/18 21:28 Dose: 0.4 mg Trimethoprim/Sulfamethoxazole (Septra Ds 800/160mg Tab) 1 tab PO Q12 [facility] Stop: 05/22/18 21:01 Last Admin: 05/17/18 07:54 Dose: 1 tab Admin: 05/16/18 21:29 Dose: 1 tab Venlafaxine HCl (Effexor Extended Release) [facility] [place] Stop: 06/16/18 08:59 Last Admin: 05/17/18 07:53 Dose: 225 mg Discontinued Medications Albuterol (Duoneb) 3 ml NEB NOW STA Stop: 05/16/18 14:26 Last Admin: 05/16/18 14:31 Dose: 3 ml Aspirin (Aspirin) 324 mg PO NOW STA Stop: 05/16/18 16:00 Last Admin: 05/16/18 16:31 Dose: 324 mg Furosemide (Lasix) 40 mg IV NOW STA Stop: 05/16/18 16:00 Last Admin: 05/16/18 16:31 Dose: 40 mg Medical Decision Making Medical Records Attestation: I reviewed the patient's medical records. Home Medications Current Medication List: was personally reviewed by me Laboratory Data Attestation: I reviewed the patient's lab results. Result diagrams: 05/17/18 05:39 05/17/18 05:39 Lab Results 05/16/18 05/16/18 05/16/18 Range/Units 14:38 14:51 14:51 WBC 12.64 H (4.8-10.8) K/uL RBC 3.23 L (4.7-6.1) M/uL Hgb 10.5 L (14.0-18.0) g/dL Hct 32.4 L (42-52) % MCV 100.3 H (80-100) fL MCH 32.5 (25-34) pg MCHC 32.4 (32-36) g/dL RDW Std Deviation 66.6 H (36.4-46.3) fL RDW Coeff of Juan Manuel 18.1 H (11.5-14.5) % Plt Count 296 (130-400) K/uL MPV 10.3 (7.4-10.4) fL Immature Gran % (Auto) 0.2 % Neut % (Auto) 81.7 % Lymph % (Auto) 6.3 % [place] % (Auto) 11.2 % Eos % (Auto) 0.2 % Baso % (Auto) 0.4 % Immature Gran # (Auto) 0.03 H (0.00-0.02) K/uL Neut # (Auto) 10.34 H (1.4-6.5) K/uL Lymph # (Auto) 0.79 L (1.2-3.4) K/uL [place] # (Auto) 1.41 H (0.11-0.59) K/uL Eos # (Auto) 0.02 (0-0.5) K/uL Baso # (Auto) 0.05 (0-0.2) K/uL Absolute Nucleated RBC 0.02 H (0-0) K/uL Nucleated RBC % (auto) 0.2 % PT (9.0-12.0) Seconds INR (0.9-1.1) VBG pH (7.36-7.41) VBG pCO2 (38-50) mmHg VBG pO2 mmHg VBG HCO3 mmol/L VBG O2 Saturation % VBG Base Excess mEq/L Barometric Pressure mm/Hg Sodium 132 L (136-145) mmol/L Potassium 4.1 (3.5-5.1) mmol/L Chloride 100 (98-107) mmol/L Carbon Dioxide 23 (21-32) mmol/L Anion Gap 9.0 (3-11) BUN 10 (7-18) mg/dl Creatinine 1.12 (0.6-1.4) mg/dl Est Cr Clr Drug Dosing 91.1 ml/min Est GFR ( Amer) 82.3 Est GFR (Non-Af Amer) 71.0 BUN/Creatinine Ratio 9.0 L (10-20) Glucose 107 H (70-99) mg/dl POC Glucose (70-99) Calcium 8.4 L (8.5-10.1) mg/dl Magnesium 1.9 (1.8-2.4) mg/dl Total Bilirubin 0.5 (0.1-1) mg/dl AST 40 H (15-37) U/L ALT 28 (12-78) U/L Alkaline Phosphatase 103 (45-117) U/L Troponin I 0.215 H* (0-0.045) ng/ml NT-Pro-B Natriuret Pep 1633 H (0-900) pg/ml Total Protein 7.5 (6.4-8.2) gm/dl Albumin 2.8 L (3.4-5.0) gm/dl Globulin 4.7 H (2.5-4.0) gm/dl Albumin/Globulin Ratio 0.6 L (0.9-2) Influenza Type A Ag Neg for Influ A (Neg) Influenza Type B Ag Neg for Influ B (Neg) 05/16/18 05/16/18 05/16/18 Range/Units 14:51 15:08 19:16 WBC (4.8-10.8) K/uL RBC (4.7-6.1) M/uL Hgb (14.0-18.0) g/dL Hct (42-52) % MCV (80-100) fL MCH (25-34) pg MCHC (32-36) g/dL RDW Std Deviation (36.4-46.3) fL RDW Coeff of Juan Manuel (11.5-14.5) % Plt Count (130-400) K/uL MPV (7.4-10.4) fL Immature Gran % (Auto) % Neut % (Auto) % Lymph % (Auto) % [place] % (Auto) % Eos % (Auto) % Baso % (Auto) % Immature Gran # (Auto) (0.00-0.02) K/uL Neut # (Auto) (1.4-6.5) K/uL Lymph # (Auto) (1.2-3.4) K/uL [place] # (Auto) (0.11-0.59) K/uL Eos # (Auto) (0-0.5) K/uL Baso # (Auto) (0-0.2) K/uL Absolute Nucleated RBC (0-0) K/uL Nucleated RBC % (auto) % PT 10.8 (9.0-12.0) Seconds INR 1.0 (0.9-1.1) VBG pH 7.44 H (7.36-7.41) VBG pCO2 37 L (38-50) mmHg VBG pO2 30 mmHg VBG HCO3 25 mmol/L VBG O2 Saturation < 60.0 % VBG Base Excess 0.8 mEq/L Barometric Pressure 735.0 mm/Hg Sodium (136-145) mmol/L Potassium (3.5-5.1) mmol/L Chloride (98-107) mmol/L Carbon Dioxide (21-32) mmol/L Anion Gap (3-11) BUN (7-18) mg/dl Creatinine (0.6-1.4) mg/dl Est Cr Clr Drug Dosing ml/min Est GFR ( Amer) Est GFR (Non-Af Amer) BUN/Creatinine Ratio (10-20) Glucose (70-99) mg/dl POC Glucose 174 H (70-99) Calcium (8.5-10.1) mg/dl Magnesium (1.8-2.4) mg/dl Total Bilirubin (0.1-1) mg/dl AST (15-37) U/L ALT (12-78) U/L Alkaline Phosphatase (45-117) U/L Troponin I (0-0.045) ng/ml NT-Pro-B Natriuret Pep (0-900) pg/ml Total Protein (6.4-8.2) gm/dl Albumin (3.4-5.0) gm/dl Globulin (2.5-4.0) gm/dl Albumin/Globulin Ratio (0.9-2) Influenza Type A Ag (Neg) Influenza Type B Ag (Neg) 05/16/18 05/16/18 05/17/18 Range/Units 21:04 21:25 05:39 WBC (4.8-10.8) K/uL RBC (4.7-6.1) M/uL Hgb (14.0-18.0) g/dL Hct (42-52) % MCV (80-100) fL MCH (25-34) pg MCHC (32-36) g/dL RDW Std Deviation (36.4-46.3) fL RDW Coeff of Juan Manuel (11.5-14.5) % Plt Count (130-400) K/uL MPV (7.4-10.4) fL Immature Gran % (Auto) % Neut % (Auto) % Lymph % (Auto) % [place] % (Auto) % Eos % (Auto) % Baso % (Auto) % Immature Gran # (Auto) (0.00-0.02) K/uL Neut # (Auto) (1.4-6.5) K/uL Lymph # (Auto) (1.2-3.4) K/uL [place] # (Auto) (0.11-0.59) K/uL Eos # (Auto) (0-0.5) K/uL Baso # (Auto) (0-0.2) K/uL Absolute Nucleated RBC (0-0) K/uL Nucleated RBC % (auto) % PT (9.0-12.0) Seconds INR (0.9-1.1) VBG pH (7.36-7.41) VBG pCO2 (38-50) mmHg VBG pO2 mmHg VBG HCO3 mmol/L VBG O2 Saturation % VBG Base Excess mEq/L Barometric Pressure mm/Hg Sodium 136 (136-145) mmol/L Potassium 3.4 L D (3.5-5.1) mmol/L Chloride 102 (98-107) mmol/L Carbon Dioxide 23 (21-32) mmol/L Anion Gap 11.0 (3-11) BUN 10 (7-18) mg/dl Creatinine 1.16 (0.6-1.4) mg/dl Est Cr Clr Drug Dosing 87.6 ml/min Est GFR ( Amer) 78.9 Est GFR (Non-Af Amer) 68.1 BUN/Creatinine Ratio 8.6 L (10-20) Glucose 88 (70-99) mg/dl POC Glucose 232 H (70-99) Calcium 8.4 L (8.5-10.1) mg/dl Magnesium 2.0 (1.8-2.4) mg/dl Total Bilirubin (0.1-1) mg/dl AST (15-37) U/L ALT (12-78) U/L Alkaline Phosphatase (45-117) U/L Troponin I 0.184 H* 0.152 H* (0-0.045) ng/ml NT-Pro-B Natriuret Pep (0-900) pg/ml Total Protein (6.4-8.2) gm/dl Albumin (3.4-5.0) gm/dl Globulin (2.5-4.0) gm/dl Albumin/Globulin Ratio (0.9-2) Influenza Type A Ag (Neg) Influenza Type B Ag (Neg) 05/17/18 05/17/18 05/17/18 Range/Units 05:39 07:26 11:15 WBC 6.70 (4.8-10.8) K/uL RBC 3.20 L (4.7-6.1) M/uL Hgb 10.3 L (14.0-18.0) g/dL Hct 32.0 L (42-52) % MCV 100.0 (80-100) fL MCH 32.2 (25-34) pg MCHC 32.2 (32-36) g/dL RDW Std Deviation 66.9 H (36.4-46.3) fL RDW Coeff of Juan Manuel 18.2 H (11.5-14.5) % Plt Count 274 (130-400) K/uL MPV 10.4 (7.4-10.4) fL Immature Gran % (Auto) % Neut % (Auto) % Lymph % (Auto) % [place] % (Auto) % Eos % (Auto) % Baso % (Auto) % Immature Gran # (Auto) (0.00-0.02) K/uL Neut # (Auto) (1.4-6.5) K/uL Lymph # (Auto) (1.2-3.4) K/uL [place] # (Auto) (0.11-0.59) K/uL Eos # (Auto) (0-0.5) K/uL Baso # (Auto) (0-0.2) K/uL Absolute Nucleated RBC (0-0) K/uL Nucleated RBC % (auto) % PT (9.0-12.0) Seconds INR (0.9-1.1) VBG pH (7.36-7.41) VBG pCO2 (38-50) mmHg VBG pO2 mmHg VBG HCO3 mmol/L VBG O2 Saturation % VBG Base Excess mEq/L Barometric Pressure mm/Hg Sodium (136-145) mmol/L Potassium (3.5-5.1) mmol/L Chloride (98-107) mmol/L Carbon Dioxide (21-32) mmol/L Anion Gap (3-11) BUN (7-18) mg/dl Creatinine (0.6-1.4) mg/dl Est Cr Clr Drug Dosing ml/min Est GFR ( Amer) Est GFR (Non-Af Amer) BUN/Creatinine Ratio (10-20) Glucose (70-99) mg/dl POC Glucose 97 197 H (70-99) Calcium (8.5-10.1) mg/dl Magnesium (1.8-2.4) mg/dl Total Bilirubin (0.1-1) mg/dl AST (15-37) U/L ALT (12-78) U/L Alkaline Phosphatase (45-117) U/L Troponin I (0-0.045) ng/ml NT-Pro-B Natriuret Pep (0-900) pg/ml Total Protein (6.4-8.2) gm/dl Albumin (3.4-5.0) gm/dl Globulin (2.5-4.0) gm/dl Albumin/Globulin Ratio (0.9-2) Influenza Type A Ag (Neg) Influenza Type B Ag (Neg) Imaging Data Radiologist's Impression: Radiology results as stated below per my review and the radiologist's interpretation: XR chest 1V portable CLINICAL HISTORY: Atypical chest pain. Cough. COMPARISON STUDY: 05/13/2018 FINDINGS: The heart is enlarged. There are small bilateral pleural effusions. There is radiographic evidence of congestive failure with mild pulmonary edema. There is a retrocardiac opacity consistent with a hiatal hernia.[ IMPRESSION: Interval development of congestive failure, pulmonary edema, and small bilateral pleural effusions. Electronically signed by: Rich Abreu M.D. 05/16/2018 3:15 PM ECG Data Attestation: I personally reviewed and interpreted this ECG as follows: Indication: SOB/dyspnea Rate (beats per minute): 85 Rhythm: normal sinus Findings: + other (normal intervals, normal axis) and + T-wave inversion (in lead 3) Comparison ECG Date: from (05/14/2018) Change: no significant change Blood Pressure Blood Pressure Findings: Elevated blood pressure Blood Pressure Disposition: further management by hospitalist BELINDA Narrative The patient is a 62 year old male with a past medical history of GERD , Diabetes, BPH, CHANTELL, COPD, CAD, NSTEMI, and HTN who presents to the Emergency Room with complaints of worsening shortness of breath starting yesterday. Differential diagnosis: Etiologies such as infections, reactive airway disease, COPD, pneumonia, pleural effusion, pulmonary edema, ARDS, pneumothorax, CHF, cardiac ischemia, cardiac tamponade, dysrhythmia, anemia, pulmonary embolism, musculoskeletal, gastrointestinal process, as well as others were entertained. Patient was seen and evaluated the bedside. Patient was seen after being seen by the resident physician. The patient was complaining some shortness of breath and had been seen at [facility] and referred here with concern for pneumonia. The patient was hypoxic on room air and so was placed on nasal cannula. The patient did complain of some mild productive sputum. The patient does have some trace edema in the lower extremities. The patient's chest film does appear to mention volume overload. Patient's other blood work was fairly unremarkable. Patient does have an elevated troponin but this may be chronic in nature. Given the patient's respiratory status and CHF believe the patient would benefit further evaluation and treatment. The patient had a last echo completed in 2015. Patient was given aspirin as well as some Lasix to help with diuresis. Patient was admitted to the medicine service. Impression & Plan Hypoxia, Respiratory failure, CHF exacerbation Discharge Plan Visit Data *Final* Discharge Date/Time: 05/16/18 18:37 Chief Complaint: Flu Like Symptoms Stated Complaint: PNEUMONIA SENT BY DR SELMA NASH ED Provider: [facility] Midlevel Provider: Tiffany Yousif Discharge Problem: Hypoxia, Respiratory failure, CHF exacerbation Patient Disposition: Admitted As Inpatient Discharge Instructions Interventions: ED Discharge Assessment Last Done: 05/16/18 18:37 The scribe's documentation has been prepared under my direction and personally reviewed by me in its entirety. I confirm that the note above accurately reflects all work, treatment, procedures, and medical decision making performed by me.
[2018-05-17] MEDS: TAMSULOSIN HCL 0.4 MG CAP PO SCH (20:15)
[2018-05-17] MEDS: ENOXAPARIN INJ 40 MG/0.4 ML SYR SQ SCH (20:18)
[2018-05-17] MEDS ORDERED: HydrALAZINE HCL 20 MG/ML VIAL IV STA (20:22)
[2018-05-17] MEDS ORDERED: LORazepam 0.5 MG TAB PO STA (22:12)
[2018-05-17] MEDS ORDERED: LORazepam 0.5 MG TAB PO PRN (22:13)
[2018-05-18] MEDS: LEVOTHYROXINE SODIUM 125 MCG TABLET PO SCH (06:07)
[2018-05-18 06:58] LABS: Calcium 8.6 mg/dl (8.5-10.1); Creatinine Clr Calc Pharmacy 85.4 ml/min; Est GFR (African American) 78.9; Est GFR (Non-African American) 68.1; Potassium 3.5 mmol/L (3.5-5.1)
[2018-05-18] MEDS: LOSARTAN POTASSIUM 50 MG TAB PO SCH (07:42)
[2018-05-18] MEDS: CLOPIDOGREL BISULFATE 75 MG TAB PO SCH (07:43)
[2018-05-18] MEDS: FUROSEMIDE 40 MG in SYRINGE 0 ML IV SCH ×2 (07:43→17:27)
[2018-05-18] MEDS: METOPROLOL SUCC 50MG EXT REL TAB PO SCH (07:43)
[2018-05-18] MEDS: CEROVITE ADV FORMULA TAB PO SCH (07:43)
[2018-05-18] MEDS: levETIRAcetam 500 MG TAB PO SCH ×2 (07:43→20:47)
[2018-05-18] MEDS: ATORVASTATIN 40 MG TAB PO SCH (07:44)
[2018-05-18] MEDS: POTASSIUM CHLORIDE 20 MEQ TABCR PO SCH (07:44)
[2018-05-18] MEDS: FINASTERIDE 5 MG TAB PO SCH (07:44)
[2018-05-18] MEDS: SULFAMETHOXAZOLE/TRIMETHOPRIM DS 800/160MG TAB PO SCH ×2 (07:44→20:47)
[2018-05-18] MEDS: ASPIRIN 81 MG ECTAB PO SCH (07:45)
[2018-05-18] MEDS: VENLAFAXINE HCL XR 75 MG CAPXR PO SCH (07:45)
[2018-05-18] MEDS: FOLIC ACID 1 MG TAB PO SCH (07:45)
[2018-05-18] MEDS: MAGNESIUM OXIDE 400 MG TAB PO SCH (07:46)
[2018-05-18] MEDS: FERROUS SULFATE 325 MG TAB PO SCH (07:46)
[2018-05-18] MEDS: cephALEXin 500 MG CAP PO SCH ×4 (07:47→20:47)
[2018-05-18] MEDS: INSULIN ASPART 100 UNITS/ML 3 ML PEN SC SCH ×4 (07:48→20:51)
[2018-05-18] MEDS: INSULIN GLARGINE SOLOSTAR 100 UNITS/ML 3 ML PEN SC SCH ×2 (07:49→20:50)
[2018-05-18] MEDS: [UNRECOGNIZED DRUG - OTHER] SCH ×3 (07:50→22:02)
[2018-05-18] MEDS: SPIRONOLACTONE 25 MG TAB PO SCH (09:30)
--- NOTE | 2018-05-18 10:01 | Cardiology Progress Note ---
Date of Service May 18, 2018 Assessment & Plan (1) Acute diastolic CHF (congestive heart failure): (2) Hypokalemia: (3) Aortic root enlargement: Continue current dose of furosemide 40 mg IV 2 times per day. At the low-dose of spironolactone 2.5 mg daily with caution while hospitalized. I am not certain however this is a good medication for him in the future given issues with nonadherence in the past as well as past electrolyte abnormalities including hyponatremia related to alcohol use so it may be prudent just to utilize this medication while hospitalized. If continues to improve, anticipate transitioning back to oral furosemide . Continue chronic dual antiplatelet therapy with aspirin and clopidogrel, metoprolol, losartan and atorvastatin. Will need outpatient cardiology follow-up at which time outpatient CT will be ordered to reassess the aortic root/proximal ascending aorta diameter is not sufficiently visualized on the inpatient echocardiogram. Subjective Chief complaint: Follow-up shortness of breath Subjective: Patient states he is feeling improved. Review of vital signs reveals that 2.8 L of urine output was recorded for 05/17/18 and 4.2 L recorded for 05/18/18. Sodium level and kidney function is stable. The patient has had issues with hyponatremia in the past. Potassium is at the lower limit of normal at 3.5. Telemetry reveals stable sinus rhythm. Physical Exam 2 Vital Signs (Past 24 Hours): Last Vital Signs Temp 36.6 C 05/18/18 07:06 Pulse 66 05/18/18 07:06 Resp 19 05/18/18 07:06 BP 136/78 05/18/18 07:06 Pulse Ox 97 05/18/18 08:00 Constitutional: well nourished and + obese; no acute distress Eyes: Ecchymosis noted at the inferior aspects of both eyelids consistent with recent head trauma Respiratory: no cough and not tachypneic Auscultation: + diminished lung sounds; no crackles and no rales Mildly decreased breath sounds at the bases Cardiovascular: Rate/Rhythm: regular rate Heart Sounds: normal S1, normal S2 and + murmur Gastrointestinal (Abdomen): Percussion/Palpation: abdomen nontender and + abdomen not soft Neurologic: No focal neurologic deficits Results & Data Laboratory Results Comprehensive Metabolic Panel 05/18/18 Range/Units 06:13 Sodium 134 L (136-145) mmol/L Potassium 3.5 (3.5-5.1) mmol/L Chloride 101 (98-107) mmol/L Carbon Dioxide 22 (21-32) mmol/L BUN 12 (7-18) mg/dl Creatinine 1.16 (0.6-1.4) mg/dl Glucose 127 H (70-99) mg/dl Calcium 8.6 (8.5-10.1) mg/dl Intake and Output 05/17/18 05/18/18 05/18/18 22:59 06:59 14:59 Intake Total 860 / 860 250 / 250 Output Total 1200 / 1200 1000 / 1000 Balance -340 / -340 -750 / -750 Intake: Oral 860 / 860 250 / 250 Output: Urine 1200 / 1200 1000 / 1000 Other: Weight 119.2 kg 113.4 kg 113.4 kg Patient Weight 05/19/18 06:59 Weight 113.4 kg
--- NOTE | 2018-05-18 16:41 | Hospitalist Progress Note ---
Date of Service May 18, 2018 Assessment & Plan (1) Acute diastolic CHF (congestive heart failure): Continue current dose of furosemide 40 mg IV 2 times per day. If continues to improve, anticipate transitioning back to oral furosemide . At the low-dose of spironolactone 2.5 mg daily with caution while hospitalized. Continue chronic dual antiplatelet therapy with aspirin and clopidogrel, metoprolol, losartan and atorvastatin. Will need outpatient cardiology follow-up at which time outpatient CT will be ordered to reassess the aortic root/proximal ascending aorta diameter is not sufficiently visualized on the inpatient echocardiogram (2) Cellulitis of right lower extremity without foot: Improved, diagnosed last week while hospitalized, cont Bactrim DS and Keflex to complete 7 day course (3) Seizure: Seizure disorder seizure precautions continue keppra (4) CAD (coronary artery disease): stable, cont AA, BB, losartan. (5) HTN (hypertension): Losartan from 50mg daily (6) Diabetes: reportedly a Type I diabetes mellitus patient, on long term care social worker use current insulin As a result of hypoglycemia on last admission, his dose of Lantus was decreased from 90U qAM and 30 U qPM to 30 Units BID. 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 Cont Spiriva, albuterol PRN. (8) Hypothyroidism: continue levothyroxine (9) CHANTELL (obstructive sleep apnea): cpap at night Obesity with BMI 35.9 encourage activity as tolerated (10) BPH (benign prostatic hyperplasia): continue flomax, finasteride (11) Diabetic foot ulcer: New diabetic foot ulcer found during last hospitalization cont Bactrim DS and Keflex to complete 7 day course will need wound care clinic follow up (12) DVT prophylaxis: -lovenox 40mg sq q24hr, BHARATH Subjective Patient has been ambulatory and breathing on room air. Reports that his breathing is improved. Denies chest pain or palpitations. Denies abdominal pain Some diminished breath sounds at the basis. Cardiology advises to continue IV Lasix BID with current fluid status Physical Exam 2 Vital Signs (Past 24 Hours): Last Vital Signs Temp 37.0 C 12/12/18 15:58 Pulse 62 05/18/18 15:58 Resp 20 05/18/18 15:58 BP 134/86 05/18/18 15:58 Pulse Ox 95 05/18/18 16:00 Constitutional: WD/WN, vitals as above Eyes: PERRL, conjunctivae normal, anicteric sclerae ENMT: external ear and nose normal, oropharynx normal Neck: trachea midline, no thyromegaly Respiratory: normal respiratory effort (no crackles and no rales Mildly decreased breath sounds at the bases) Cardiovascular: Rate/Rhythm: regular rhythm and + bradycardic Gastrointestinal (Abdomen): normal bowel sounds, soft, nontender, no hepatosplenomegaly Neurologic: PERRL, EOMI, accommodation nl, no face palsy, no dysarthria CN' s II-XI intact bilaterally Psychiatric: A+Ox3, euthymic affect
[2018-05-18] MEDS: TAMSULOSIN HCL 0.4 MG CAP PO SCH (20:48)
[2018-05-18] MEDS: ENOXAPARIN INJ 40 MG/0.4 ML SYR SQ SCH (20:49)
[2018-05-19] MEDS: LEVOTHYROXINE SODIUM 125 MCG TABLET PO SCH (06:04)
[2018-05-19 06:36] LABS: BUN Creatinine Ratio 12.7 (10-20); Calcium 9.2 mg/dl (8.5-10.1); Creatinine Clr Calc Pharmacy 72.3 ml/min; Est GFR (African American) 65.1; Est GFR (Non-African American) 56.2; Potassium 4.1 mmol/L (3.5-5.1)
[2018-05-19] MEDS: cephALEXin 500 MG CAP PO SCH ×2 (07:37→12:23)
[2018-05-19] MEDS: SULFAMETHOXAZOLE/TRIMETHOPRIM DS 800/160MG TAB PO SCH (07:37)
[2018-05-19] MEDS: ASPIRIN 81 MG ECTAB PO SCH (07:38)
[2018-05-19] MEDS: SPIRONOLACTONE 25 MG TAB PO SCH (07:38)
[2018-05-19] MEDS: LOSARTAN POTASSIUM 50 MG TAB PO SCH (07:38)
[2018-05-19] MEDS: FERROUS SULFATE 325 MG TAB PO SCH (07:38)
[2018-05-19] MEDS: MAGNESIUM OXIDE 400 MG TAB PO SCH (07:38)
[2018-05-19] MEDS: levETIRAcetam 500 MG TAB PO SCH (07:38)
[2018-05-19] MEDS: FOLIC ACID 1 MG TAB PO SCH (07:39)
[2018-05-19] MEDS: VENLAFAXINE HCL XR 75 MG CAPXR PO SCH (07:39)
[2018-05-19] MEDS: ATORVASTATIN 40 MG TAB PO SCH (07:39)
[2018-05-19] MEDS: FINASTERIDE 5 MG TAB PO SCH (07:39)
[2018-05-19] MEDS: POTASSIUM CHLORIDE 20 MEQ TABCR PO SCH (07:40)
[2018-05-19] MEDS: CEROVITE ADV FORMULA TAB PO SCH (07:40)
[2018-05-19] MEDS: METOPROLOL SUCC 50MG EXT REL TAB PO SCH (07:40)
[2018-05-19] MEDS: CLOPIDOGREL BISULFATE 75 MG TAB PO SCH (07:40)
[2018-05-19] MEDS: INSULIN ASPART 100 UNITS/ML 3 ML PEN SC SCH ×2 (07:45→12:23)
[2018-05-19] MEDS: INSULIN GLARGINE SOLOSTAR 100 UNITS/ML 3 ML PEN SC SCH (07:46)
[2018-05-19] MEDS: [UNRECOGNIZED DRUG - OTHER] SCH (07:46)
[2018-05-19] MEDS ORDERED: FUROSEMIDE 40 MG TAB PO SCH (09:00)
--- NOTE | 2018-05-19 09:00 | Cardiology Progress Note ---
Date of Service May 19, 2018 Assessment & Plan (1) Acute diastolic CHF (congestive heart failure): (2) Alcohol abuse: (3) CAD (coronary artery disease): (4) Aortic root enlargement: Patient clinically improved, transition back to home dose of furosemide 40 mg daily. Discontinue spironolactone, as long-term, I think this is more likely to cause difficulty with his elect lites and renal function. His sodium is trending down, he does have a history of mild hyponatremia, I think this will normalize with transitioning back to his oral furosemide. Noted chronic anemia. This may be nutritional in etiology. Continue current medications for chronic CAD including chronic dual antiplatelet therapy. Continue statin therapy and losartan, beta-fer. Patient has outpatient cardiology follow-up tenably scheduled for 05/26/18, will reassess the timing of contrast versus noncontrast CT of the chest for follow-up of his aortic root ascending aorta dilatation. Subjective Chief complaint: Follow-up shortness of breath Subjective: Patient feeling well. Denies chest discomfort or shortness of breath. Telemetry reveals stable sinus rhythm with occasional PVCs.Continues with vigorous urine output, urine output measured to be 2.6 L yesterday. Physical Exam 2 Vital Signs (Past 24 Hours): Last Vital Signs Temp 36.4 C L 05/19/18 07:10 Pulse 61 05/19/18 07:10 Resp 18 05/19/18 07:10 BP 123/81 05/19/18 07:10 Pulse Ox 97 05/19/18 08:00 Physical Exam: General: no acute distress and stated age Eyes: conjunctiva are pink and non-injected, sclera clear Neck: normal jugular venous pulse, no hepatojugular reflux Chest: normal shape and normal respiratory effort Lungs: clear to auscultation and percussion Cardiac Exam: - regular heart sounds, no murmurs, rubs, or gallops, no jugular venous distention Abdomen: abdomen soft, non-tender, no abnormal masses and no hepatosplenomegaly Musculoskeletal: no gait disturbance, no weakness Extremities: no edema and no cyanosis, History of loss of the tip of the first finger, unchanged Neuro:awake, coversant, follows commands, no focal motor deficits Psych: appropriate affect and insight.
--- NOTE | 2018-05-19 11:50 | Hospitalist Progress Note ---
Date of Service May 19, 2018 Assessment & Plan (1) Acute diastolic CHF (congestive heart failure): was on Lasix IV 40 mg BID and then transitioned back to oral furosemide . low-dose of spironolactone 2.5 mg daily while hospitalized but recommended to be stopped by cardiology upon discharge Continue chronic dual antiplatelet therapy with aspirin and clopidogrel, metoprolol, losartan and atorvastatin. Has outpatient cardiology follow-up at which time outpatient CT will be ordered to reassess the aortic root/proximal ascending aorta diameter is not sufficiently visualized on the inpatient echocardiogram 05/26/2018 9:30 AM Provider Leonora Khan PA-C Department Cardiology, [facility] (2) Cellulitis of right lower extremity without foot: (New diabetic foot ulcer found during last hospitalization; cont Bactrim DS and Keflex to complete 7 day course; will need wound care clinic follow up) continue 4 more days of antibiotics of Cephalexin (Keflex) 500 mg twice day and Bactrim (Trimethoprim and Sulfamethoxazole) twice a day. (3) Seizure: Seizure disorder continue [place]era follow up 05/24/2018 8:40 AM Shaniqua Prescott PA-C Department Neurology [facility] (4) CAD (coronary artery disease): stable, cont AA, BB, losartan. 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 Patient has follow up appointment for wound care clinic Other appointments: 05/23/2018 11:20 AM Laila Bruce MD Department Family Practice [facility] (Patient should have electrolytes checked while on Lasix at primary care clinic) 05/24/2018 8:40 AM Provider Shaniqua Prescott PA-C Department Neurology [facility] 05/26/2018 9:30 AM Provider Leonora Khan PA-C Department Cardiology, [facility] (7) COPD (chronic obstructive pulmonary disease): Stable, no wheezing on exam. Cont Spiriva, albuterol PRN. (8) Hypothyroidism: continue levothyroxine (9) CHANTELL (obstructive sleep apnea): cpap at night Obesity with BMI 35.9 encourage activity (10) BPH (benign prostatic hyperplasia): continue flomax, finasteride (11) Diabetic foot ulcer: New diabetic foot ulcer found during last hospitalization cont Bactrim DS and Keflex to complete 7 day course (prescription made for 4 more days of antibiotics of Cephalexin (Keflex) 500 mg twice day and Bactrim ( Trimethoprim and Sulfamethoxazole) twice a day) Patient has follow up appointment for wound care clinic (12) DVT prophylaxis: -lovenox 40mg sq q24hr, TEDS, while inpatient Discharge Diagnosis Acute diastolic heart failure, Hypertension, Type 1 diabetes with other skin complication, Obesity due to excess calories with BMI 35 to 35.9 in adult (BMI is 35.3), Seizure disorder Discharge Instructions Patient will have prescriptions sent electronically to pharmacy at [facility] including Lasix (Furosemide) 40 mg daily and Atorvastatin 40 mg daily and 4 more days of antibiotics of Cephalexin (Keflex) 500 mg twice day and Bactrim (Trimethoprim and Sulfamethoxazole) twice a day. Patient has follow up appointment for wound care clinic Other appointments: 05/23/2018 11:20 AM Laila Bruce MD Department Family Practice [facility] (Patient should have electrolytes checked while on Lasix at primary care clinic) 05/24/2018 8:40 AM Provider Shaniqua Prescott PA-C Department Neurology [facility] 05/26/2018 9:30 AM Provider Leonora Khan PA-C Department Cardiology, [facility] Subjective Patient has been ambulatory and breathing on room air. Denies chest pain or palpitations. Denies abdominal pain Physical Exam 2 Vital Signs (Past 24 Hours): Last Vital Signs Temp 36.5 C 05/19/18 11:31 Pulse 65 05/19/18 11:31 Resp 20 05/19/18 11:31 BP 116/74 05/19/18 11:31 Pulse Ox 94 05/19/18 11:31 Constitutional: WD/WN, vitals as above Eyes: PERRL, conjunctivae normal, anicteric sclerae ENMT: external ear and nose normal, oropharynx normal Neck: trachea midline, no thyromegaly Respiratory: normal respiratory effort, lungs clear to auscultation Cardiovascular: Rate/Rhythm: regular rhythm and + bradycardic Gastrointestinal (Abdomen): normal bowel sounds, soft, nontender, no hepatosplenomegaly Musculoskeletal: Extremities: + foot abnormality (right big toe with skin desquamation and ulcer) Neurologic: PERRL, EOMI, accommodation nl, no face palsy, no dysarthria CN' s II-XI intact bilaterally Psychiatric: A+Ox3, euthymic affect
--- NOTE | 2018-05-19 12:01 | Discharge Summary ---
Date of Service May 19, 2018 Admission HPI Per Admitting Provider This is a 62-year-old white male with significant past medical history of CAD, T2 DM, HLD, mild COPD, seizure disorder, EtOH abuse, CHANTELL on CPAP at bedtime, BPH , GERD who presents to [facility] secondary to shortness of breath times 1 day. Patient was recently hospitalized at [facility] from 05/13-05/15 status post fall. It was felt fall was secondary to seizure activity. Neurology was on board, EEG was performed. He was initiated on Keppra. He underwent gabapentin withdrawal protocol. Was concern for possible withdrawal induced seizure. He also had troponinemia which was felt to be secondary to myoclonic rhabdo. He was discharged yesterday on 05/15. Last evening he noted to become more short of breath with exertion. is at bedside and notes that when he was sleeping with CPAP last night he was more restless, "gurgling. " He currently complains of shortness breath with exertion, shortness of breath at rest, palpitations. Normally he is able to do ADLs and daily activities without difficulty. Today he became short of breath getting dressed. He is unsure if he had any recent weight change. 2 pillow orthopnea, but denies PND. Denies any recent fever, chills, sweats, lightheadedness, dizziness, chest pain, nausea, vomiting, diarrhea, change in bowel or urinary habits. States he has been abstinent from alcohol since 05/13. He does complain of a cough, wet, not really producible. He notes improvement in breathing after receiving IV Lasix. Denies any history of CHF in the past. No recent sick contacts. Patient elicits he has been taking Lasix 40 mg daily secondary to his chronic lower extremity swelling. He has been off of this medication for approximately 1 week without reason. He was recently started on Keflex, bactrim regimen secondary to RLE foot/toe infection. He has had 3 doses of keflex, and 1 dose of bactrim this morning. Lastly pt was seen by PCP Dr. Bruce today, was sent over to [facility] secondary to hypoxia and concern for PNA. Admission Exam Per Admitting Provider Gen: WD/WN, morbidly obese M, NAD, sitting up in bed, pleasant, conversing easily, but dsypneic with conversation Head: Normocephalic, bilateral inferior periorbital ecchymoses Eyes: Sclera normal, no conjunctival injection, PERRLA, EOMI ENT: Gross hearing intact, normal pharynx, mucous membranes moist Neck: supple, no adenopathy, No JVD, no bruit, no thyromegaly, Resp: Dimished breath sounds at bases with b/l rhonchi at bases, otherwise clear to auscultation b/l, no wheeze, rales. 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 Extremities: b/l chronic venous stasis changes with +1 pitting edema, b/l pedal pulse +1 and equal Skin: warm, moist, no rash, negative turgor, cap refill < 2sec Neuro: Alert and oriented x 3, speech normal, good mood/affect, cran nerve 2-12 intact grossly : deferred Principal Diagnosis Acute diastolic heart failure, Hypertension, Type 1 diabetes with other skin complication, Obesity due to excess calories with BMI 35 to 35.9 in adult (BMI is 35.3), Seizure disorder Discharge Exam Constitutional WD/WN, vitals as above Eyes PERRL, conjunctivae normal, anicteric sclerae ENMT external ear and nose normal, oropharynx normal Neck trachea midline, no thyromegaly Respiratory normal respiratory effort, lungs clear to auscultation normal respiratory effort (no crackles and no rales Mildly decreased breath sounds at the bases) Cardiovascular Rate/Rhythm: regular rhythm and + bradycardic Gastrointestinal (Abdomen) normal bowel sounds, soft, nontender, no hepatosplenomegaly Musculoskeletal Extremities: + foot abnormality (right big toe with skin desquamation and ulcer) Neurologic PERRL, EOMI, accommodation nl, no face palsy, no dysarthria CN's II-XI intact bilaterally Psychiatric A+Ox3, euthymic affect Discharge Data Allergies Allergy/AdvReac Type Severity Reaction Status Date / Time DEIDRE Inhibitors Allergy Unknown COUGH Verified 05/16/18 14:37 Consultations 05/16/18 16:40 ED Decision to Admit Stat 05/16/18 17:46 Consult Cardiology Routine Hospital Course (1) Acute diastolic CHF (congestive heart failure): was on Lasix IV 40 mg BID and then transitioned back to oral furosemide . low-dose of spironolactone 2.5 mg daily while hospitalized but recommended to be stopped by cardiology upon discharge Continue chronic dual antiplatelet therapy with aspirin and clopidogrel, metoprolol, losartan and atorvastatin. Has outpatient cardiology follow-up at which time outpatient CT will be ordered to reassess the aortic root/proximal ascending aorta diameter is not sufficiently visualized on the inpatient echocardiogram 05/26/2018 9:30 AM Provider Leonora Khan PA-C Department Cardiology, [facility] (2) Cellulitis of right lower extremity without foot: (New diabetic foot ulcer found during last hospitalization; cont Bactrim DS and Keflex to complete 7 day course; will need wound care clinic follow up) continue 4 more days of antibiotics of Cephalexin (Keflex) 500 mg twice day and Bactrim (Trimethoprim and Sulfamethoxazole) twice a day. (3) Seizure: Seizure disorder continue Keppra follow up 05/24/2018 8:40 AM Shaniqua Prescott PA-C Department Neurology [facility] (4) CAD (coronary artery disease): stable, cont AA, BB, losartan. 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 Continue carb coverage and current 30 units BID Lantus dosing Type 1 diabetes mellitus with skin complication (New diabetic foot ulcer found during last hospitalization; cont Bactrim DS and Keflex to complete 7 day course ; will need wound care clinic follow up) Discharge Instructions Patient will have prescriptions sent electronically to pharmacy at [facility] including Lasix (Furosemide) 40 mg daily and Atorvastatin 40 mg daily and 4 more days of antibiotics of Cephalexin (Keflex) 500 mg twice day and Bactrim (Trimethoprim and Sulfamethoxazole) twice a day. Patient has follow up appointment for wound care clinic Other appointments: 05/23/2018 11:20 AM Laila Bruce MD Department Family Practice [facility] (Patient should have electrolytes checked while on Lasix at primary care clinic) 05/24/2018 8:40 AM Provider Shaniqua Prescott PA-C Department Neurology [facility] 05/26/2018 9:30 AM Provider Leonora Khan PA-C Department Cardiology, [facility] (7) COPD (chronic obstructive pulmonary disease): Stable, no wheezing on exam. Cont Spiriva, albuterol PRN. (8) Hypothyroidism: continue levothyroxine (9) CHANTELL (obstructive sleep apnea): cpap at night Obesity with BMI 35.9 encourage activity (10) BPH (benign prostatic hyperplasia): continue flomax, finasteride (11) Diabetic foot ulcer: New diabetic foot ulcer found during last hospitalization cont Bactrim DS and Keflex to complete 7 day course (prescription made for 4 more days of antibiotics of Cephalexin (Keflex) 500 mg twice day and Bactrim ( Trimethoprim and Sulfamethoxazole) twice a day) Patient has follow up appointment for wound care clinic (12) DVT prophylaxis: -lovenox 40mg sq q24hr, TEDS, while inpatient Discharge Diagnosis Acute diastolic heart failure, Hypertension, Type 1 diabetes with other skin complication, Obesity due to excess calories with BMI 35 to 35.9 in adult (BMI is 35.3), Seizure disorder Discharge Instructions Patient will have prescriptions sent electronically to pharmacy at [facility] including Lasix (Furosemide) 40 mg daily and Atorvastatin 40 mg daily and 4 more days of antibiotics of Cephalexin (Keflex) 500 mg twice day and Bactrim (Trimethoprim and Sulfamethoxazole) twice a day. Patient has follow up appointment for wound care clinic Other appointments: 05/23/2018 11:20 AM Laila Bruce MD Department Family Practice [facility] (Patient should have electrolytes checked while on Lasix at primary care clinic) 05/24/2018 8:40 AM Provider Shaniqua Prescott PA-C Department Neurology [facility] 05/26/2018 9:30 AM Provider Leonora Khan PA-C Department Cardiology, [facility] Total Time Total Time Spent Total Time Spent (In Minutes): 40 minutes Total Time Includes: Examination of the Patient, Discharge Planning and Medication Reconciliation Discharge Plan Discharge Items Patient Disposition: Home - Self-Care Reason For Visit: ACUTE DIASTOLIC CHF Discharge Diagnosis: Acute diastolic heart failure, Hypertension, Type 1 diabetes with other skin complication, Obesity due to excess calories with BMI 35 to 35.9 in adult (BMI is 35.3), Seizure disorder Condition: Good Discharge Goals: Improve disease control Activity: Resume your previous activity Non-emergency contact: Primary Care Provider, Mail List Processor and Neurologist Call non-emergency contact if: you have any medication questions Diet: Carb Consistent or DM2 Addtl Provider Instructions: Discharge Instructions Patient will have prescriptions sent electronically to pharmacy at [facility] including Lasix (Furosemide) 40 mg daily and Atorvastatin 40 mg daily and 4 more days of antibiotics of Cephalexin (Keflex) 500 mg twice day and Bactrim (Trimethoprim and Sulfamethoxazole) twice a day. Patient has follow up appointment for wound care clinic Other appointments: 05/23/2018 11:20 AM Laila Bruce MD Department Family Practice [facility] (Patient should have electrolytes checked while on Lasix at primary care clinic) 05/24/2018 8:40 AM Provider Shaniqua Prescott PA-C Department Neurology [facility] 05/26/2018 9:30 AM Provider Leonora Khan PA-C Department Cardiology, [facility] Prescriptions: New sulfamethoxazole-trimethoprim 800-160 mg Tablet 1 tab PO Q12 4 Days Qty: 8 RF: 0 cephalexin 500 mg Capsule 500 mg PO QID 4 Days Qty: 16 RF: 0 furosemide 40 mg Tablet 40 mg PO QAM 30 Days Qty: 30 RF: 0 atorvastatin 40 mg Tablet 40 mg PO QAM 30 Days Qty: 30 RF: 0 Continue aspirin [Adult Aspirin Regimen] 81 mg tablet,delayed release (DR/EC) 81 mg PO QAM RF: 0 clopidogrel [Plavix] 75 mg tablet 75 mg PO QAM RF: 0 ferrous sulfate 325 mg (65 mg iron) tablet 325 mg PO QAM RF: 0 finasteride 5 mg tablet 5 mg PO QAM RF: 0 folic acid 1 mg tablet 1 mg PO QAM RF: 0 insulin aspart U-100 [Novolog Flexpen U-100 Insulin] 100 unit/mL insulin pen SQ TIDM RF: 0 levothyroxine 125 mcg tablet 125 mcg PO QAM RF: 0 metoprolol succinate [Toprol XL] 100 mg tablet extended release 24 hr 100 mg PO QAM RF: 0 multivitamin with minerals tablet 1 tab PO QAM RF: 0 ranitidine HCl 300 mg tablet 300 mg PO BID RF: 0 tamsulosin [Flomax] 0.4 mg capsule 0.4 mg PO HS RF: 0 riboflavin (vitamin B2) 100 mg tablet 100 mg PO QAM RF: 0 venlafaxine 75 mg capsule,extended release 24hr 225 mg PO QAM RF: 0 losartan 50 mg tablet 50 mg PO QAM RF: 0 magnesium oxide 400 mg (241.3 mg magnesium) Tablet 800 mg PO QAM RF: 0 albuterol sulfate 90 mcg/actuation Hfa Aerosol Inhaler 2 puff INHALATION QID PRN (Reason: Shortness Of Breath Or Wheezing) RF: 0 tiotropium bromide [Spiriva Respimat] 2.5 mcg/actuation Mist 2 puff INHALATION DAILY PRN (Reason: Shortness Of Breath Or Wheezing) RF: 0 levetiracetam [Keppra] 500 mg Tablet 500 mg PO BID 30 Days Qty: 60 RF: 1 insulin glargine [Lantus U-100 Insulin] 100 unit/mL solution 30 units SQ BID 30 Days Qty: 10 RF: 0 Discontinued sulfamethoxazole-trimethoprim 800-160 mg Tablet 1 tab PO Q12 7 Days Qty: 14 RF: 0 cephalexin [Keflex] 500 mg capsule 500 mg PO QID 7 Days Qty: 28 RF: 0 Visit Report Forms: My [facility] Portal Stand-Alone Forms: My [facility] Discharge Orders: Discharge Order (Routine); Ordered 05/19/18 Ordered By: Gabriel Mcdowell Admission Data Admit Date/Time: 05/17/18 19:29 Attending Provider: Gabriel Mcdowell Admit Provider: Ruchi Eastman Primary Care Provider: Laila Bruce Other Providers: Obey Hill ; Ruchi Eastman Service: Telemetry
== END 2018-05-19 15:12 | disposition home or self-care (01) | DRG 291 ==
LOC: ED 13:56 → 2S 13:56 → SUATTDRO 05-17 19:29

== ENCOUNTER 2020-04-14 15:52 | Inpatient (IN) ==
[2020-04-14] MEDS ORDERED: cefTRIAXone SODIUM 2,000 MG/70 ML BAG IV STA (16:21)
[2020-04-14] MEDS ORDERED: SULFAMETHOXAZOLE/TRIMETHOPRIM DS 800/160MG TAB PO ONE (16:21)
--- NOTE | 2020-04-14 16:29 | Emergency Department Note ---
Impression & Plan Osteomyelitis, Cellulitis, Left hand pain, Leukocytosis, Acute hyperglycemia ED Provider Note NAME: ANNMARIE HATFIELD AGE: 64 SEX: M : 1955 ARRIVES VIA: Walk-In INFORMANT: [Patient][] ED PROVIDER(S): [Kwaku Gonsales MD] CHIEF COMPLAINT: Hand pain HISTORY OF PRESENT ILLNESS: The patient is a 64-year-old male who has had an injury to his left fifth finger for some time. The area has been slowly healing. The patient states that in the last 3 days, he has had redness and increased pain to the hand and arm. He states that yesterday, he had some chills. Today, he had a temperature elevation over 100 degrees. The patient states the pain is an 8 on a scale of 1-10. He states that the hand is more painful when he tries to use it. He has noticed that the hand is red and now the redness is extending up his forearm to his elbow. He had a cellulitis on this hand before that acted similar. Patient denies any cough or congestion. No urinary complaints. He has not had vomiting or diarrhea. He believes that the last time he did well on an antibiotic called Bactrim. Of note, the patient was seen at [facility]'s outpatient facility today and referred to the ED for further work-up. REVIEW OF SYSTEMS: See HPI for pertinent positives and negatives. A total of ten systems were reviewed and were otherwise negative. PMHx/PSHx: See Below SOCIAL HISTORY: See Below. PHYSICAL EXAM: GENERAL: Patient is in no acute distress. HEENT: No acute trauma, normocephalic atraumatic, mucous membranes moist, no nasal congestion, no scleral icterus. NECK: No stridor, no adenopathy, no meningismus, trachea is midline. LUNGS: Clear to auscultation bilaterally, no wheeze, no rhonchi, breath sounds equal. HEART: Without murmurs gallops or rubs, regular rate and rhythm. ABDOMEN: Soft, nontender, bowel sounds positive, no hernias, no peritonitis. EXTREMITIES: No cyanosis. The patient does have swelling to the left hand. There is erythema and warmth of the left hand extending up the volar aspect of the forearm to about the elbow. The patient has some erythema extending up the wrist dorsally as well. The erythema was outlined. There is no drainage. There is warmth to the area of erythema. There is a healing open area to the tip of the fifth finger. NEUROLOGIC: Oriented x 3, no acute motor or sensory deficits, no focal weakness. SKIN: No jaundice, no diaphoresis. DIFFERENTIAL DIAGNOSIS: Sepsis, UTI, pneumonia, metabolic, electrolyte abnormalities, cellulitis, osteomyelitis, cardiac sources, intracerebral event, toxicologic, neurologic, as well as other pathologies. EMERGENCY DEPARTMENT COURSE/PROCEDURES: MEDICAL DECISION MAKING: There is a moderate leukocytosis which would be consistent with infection. There is a mild anemia. The anemia is baseline. There is a normal platelet count. No concerning coagulopathy. No kidney failure. The patient glucose is quite high at 338. Lactic acid level was elevated 2.7. The elevated lactic a enid certainly could be consistent with infection. Alk phos was slightly elevated, the remaining liver enzymes were unremarkable. Procalcitonin level was not elevated. Urinalysis showed glucose, no infection. Left hand CT did show cellulitis and finger osteomyelitis, no abscess or gas in the soft tissues. On exam, the patient had an obvious cellulitis of the left hand extending up the forearm. Patient received IV ceftriaxone and oral Bactrim. He was given a liter of IV saline. He was given 10 units of IV insulin because of the high sugar value. The patient deserves a hospital stay. He has osteomyelitis and cellulitis. He has a high white count and elevated lactic acid level. He is hyperglycemic. I did talk to the patient about his findings, case management has been involved. The on-call hospitalist was consulted. Past Med/Surg History Medical History Altered mental status Aortic root enlargement BPH (benign prostatic hyperplasia) CAD (coronary artery disease) COPD (chronic obstructive pulmonary disease) Dyslipidemia GERD (gastroesophageal reflux disease) HTN (hypertension) Hyponatremia NSTEMI (non-ST elevated myocardial infarction) CHANTELL (obstructive sleep apnea) Type 1 diabetes Surgical History H/O adenoidectomy History of hip replacement History of tonsillectomy Family History Other Family history non-contributory Social History Smoking Status: Former smoker Tobacco Type: Cigarettes Cigarettes Per Day: 30; Hx Alcohol Use: Yes (8 to 12 oz every day) Alcohol type: beer Hx Substance Use: No Preferred Language: Kuwaiti Communication Ability: Effective Visual Impairment: No Limitations Hearing Ability: Normal Beliefs That Will Affect Care: None Current Living Situation: Spouse Feels Safe at Home: Yes Assistive Devices: Glasses Allergies Allergies Allergy/AdvReac Type Severity Reaction Status Date / Time DEIDRE Inhibitors Allergy Unknown COUGH Verified 04/14/20 18:08 Home Meds Home Medications Medication Instructions Recorded Confirmed aspirin 81 mg tablet,delayed 81 mg PO QAM 02/04/18 04/14/20 release clopidogrel 75 mg tablet 75 mg PO QAM 02/04/18 04/14/20 finasteride 5 mg tablet 5 mg PO QAM tab 02/04/18 04/14/20 folic acid 1 mg tablet 1 mg PO QAM tab 02/04/18 04/14/20 insulin aspart U-100 100 unit/mL 0 units SQ DIRECTED ml 02/04/18 04/14/20 (3 mL) subcutaneous pen levothyroxine 125 mcg tablet 125 mcg PO QAM 02/04/18 04/14/20 multivitamin with minerals 1 tab PO QAM tab 02/04/18 04/14/20 tamsulosin 0.4 mg capsule 0.4 mg PO HS cap 02/04/18 04/14/20 venlafaxine 75 mg capsule,extended 225 mg PO QAM cap 02/04/18 04/14/20 release 24 hr albuterol sulfate 2 puff INHALATION QID PRN 05/13/18 04/14/20 losartan 50 mg PO BID 05/13/18 04/14/20 atorvastatin 40 mg PO PM 04/14/20 04/14/20 fluticasone furoate-vilanterol 1 inh INHALATION QAM 04/14/20 04/14/20 [Breo Ellipta] furosemide 40 mg PO QAM 04/14/20 04/14/20 gabapentin 300 mg PO DIRECTED 04/14/20 04/14/20 ibuprofen [Advil] 600 mg PO Q6H PRN 04/14/20 04/14/20 insulin glargine [Lantus Solostar 100 unit SUBCUT QAM 04/14/20 04/14/20 U-100 Insulin] metoprolol succinate 25 mg PO QAM 04/14/20 04/14/20 psupuiij-cdiurckuh-MP 4 drp OTIC (EAR) TID 04/14/20 04/14/20 omeprazole 20 mg PO QAM 04/14/20 04/14/20 potassium chloride 40 meq PO QAM 04/14/20 04/14/20 sennosides-docusate sodium 1 tab-cap PO BID 04/14/20 04/14/20 [Senokot-S] Results & Data (ED) Vital Signs Vital Signs - 24 hr 04/14/20 16:04 Temperature 37.3 C Temperature Source Oral Pulse Rate 88 Respiratory Rate 18 Respiratory Effort / Characteristics Non-Labored Spontaneous Respiratory Depth Normal Respiratory Pattern Regular Blood Pressure 124/86 Blood Pressure Mean 98 Blood Pressure Position Sitting Pulse Oximetry 97 Oxygen Delivery Method Room Air Sepsis Recent Fever Within 48 Hours No Sepsis New/Unexplained Change in Mental Status N/A Sepsis Action Taken by Nursing No Action Required Home Medications Current Medication List: was personally reviewed by me Laboratory Data Attestation: I reviewed the patient's lab results. Result diagrams: 04/14/20 17:00 04/14/20 17:00 Lab Results 04/14/20 04/14/20 04/14/20 Range/Units 17:00 17:00 17:00 WBC 15.82 H (4.8-10.8) K/uL RBC 3.88 L (4.7-6.1) M/uL Hgb 11.7 L (14.0-18.0) g/dL Hct 36.4 L (42-52) % MCV 93.8 (80-100) fL MCH 30.2 (25-34) pg MCHC 32.1 (32-36) g/dL RDW Std Deviation 50.7 H (36.4-46.3) fL RDW Coeff of Juan Manuel 15.0 H (11.5-14.5) % Plt Count 279 (130-400) K/uL MPV 10.4 (7.4-10.4) fL Immature Gran % (Auto) 0.3 % Neut % (Auto) 82.0 % Lymph % (Auto) 8.4 % Chambers % (Auto) 8.8 % Eos % (Auto) 0.2 % Baso % (Auto) 0.3 % Neut # (Auto) 12.97 H (1.4-6.5) K/uL Lymph # (Auto) 1.33 (1.2-3.4) K/uL Chambers # (Auto) 1.40 H (0.11-0.59) K/uL Eos # (Auto) 0.03 (0-0.5) K/uL Baso # (Auto) 0.05 (0-0.2) K/uL Immature Gran # (Auto) 0.04 H (0.00-0.02) K/uL PT 10.5 (9.0-12.0) Seconds INR 1.0 (0.9-1.1) APTT 31.8 H (21.0-31.0) Seconds PTT Ratio 1.1 Sodium 132 L (136-145) mmol/L Potassium 3.5 (3.5-5.1) mmol/L Chloride 99 (98-107) mmol/L Carbon Dioxide 24 (21-32) mmol/L Anion Gap 9.0 (3-11) BUN 13 (7-18) mg/dl Creatinine 1.24 (0.6-1.4) mg/dl Est Cr Clr Drug Dosing 81.1 ml/min Est GFR ( Amer) 71.8 Est GFR (Non-Af Amer) 61.9 BUN/Creatinine Ratio 10.8 (10-20) Glucose 338 H* (70-99) mg/dl Lactate (0.4-2.0) mmol/L Calcium 8.5 (8.5-10.1) mg/dl Magnesium 2.1 (1.8-2.4) mg/dl Total Bilirubin 0.6 (0.2-1) mg/dl AST 22 (15-37) U/L ALT 24 (12-78) U/L Alkaline Phosphatase 148 H (45-117) U/L Total Protein 8.6 H (6.4-8.2) gm/dl Albumin 3.0 L (3.4-5.0) gm/dl Globulin 5.6 H (2.5-4.0) gm/dl Albumin/Globulin Ratio 0.5 L (0.9-2) Beta-Hydroxybutyric Acd 0.95 (0.2-2.81) mg/dl Procalcitonin (0-0.5) ng/ml Urine Color Urine Appearance (Clear) Urine pH (4.5-7.5) Ur Specific [place] (1.000-1.030) Urine Protein (Negative) Urine Glucose (UA) (Negative) Urine Ketones (Negative) Urine Blood (Negative) Urine Nitrite (Negative) Urine Bilirubin (Negative) Urine Urobilinogen (Negative) Ur Leukocyte Esterase (Negative) 04/14/20 04/14/20 04/14/20 Range/Units 17:00 17:00 17:00 WBC (4.8-10.8) K/uL RBC (4.7-6.1) M/uL Hgb (14.0-18.0) g/dL Hct (42-52) % MCV (80-100) fL MCH (25-34) pg MCHC (32-36) g/dL RDW Std Deviation (36.4-46.3) fL RDW Coeff of Juan Manuel (11.5-14.5) % Plt Count (130-400) K/uL MPV (7.4-10.4) fL Immature Gran % (Auto) % Neut % (Auto) % Lymph % (Auto) % Chambers % (Auto) % Eos % (Auto) % Baso % (Auto) % Neut # (Auto) (1.4-6.5) K/uL Lymph # (Auto) (1.2-3.4) K/uL Chambers # (Auto) (0.11-0.59) K/uL Eos # (Auto) (0-0.5) K/uL Baso # (Auto) (0-0.2) K/uL Immature Gran # (Auto) (0.00-0.02) K/uL PT (9.0-12.0) Seconds INR (0.9-1.1) APTT (21.0-31.0) Seconds PTT Ratio Sodium (136-145) mmol/L Potassium (3.5-5.1) mmol/L Chloride (98-107) mmol/L Carbon Dioxide (21-32) mmol/L Anion Gap (3-11) BUN (7-18) mg/dl Creatinine (0.6-1.4) mg/dl Est Cr Clr Drug Dosing ml/min Est GFR ( Amer) Est GFR (Non-Af Amer) BUN/Creatinine Ratio (10-20) Glucose (70-99) mg/dl Lactate 2.7 H* (0.4-2.0) mmol/L Calcium (8.5-10.1) mg/dl Magnesium (1.8-2.4) mg/dl Total Bilirubin (0.2-1) mg/dl AST (15-37) U/L ALT (12-78) U/L Alkaline Phosphatase (45-117) U/L Total Protein (6.4-8.2) gm/dl Albumin (3.4-5.0) gm/dl Globulin (2.5-4.0) gm/dl Albumin/Globulin Ratio (0.9-2) Beta-Hydroxybutyric Acd (0.2-2.81) mg/dl Procalcitonin 0.23 (0-0.5) ng/ml Urine Color Yellow Urine Appearance Clear (Clear) Urine pH 6.0 (4.5-7.5) Ur Specific [place] 1.013 (1.000-1.030) Urine Protein Negative (Negative) Urine Glucose (UA) 3+ H (Negative) Urine Ketones Negative (Negative) Urine Blood Negative (Negative) Urine Nitrite Negative (Negative) Urine Bilirubin Negative (Negative) Urine Urobilinogen Negative (Negative) Ur Leukocyte Esterase Negative (Negative) Administered Medications Discontinued Medications Sodium Chloride (Nss 1000ml) 1,000 mls @ 999 mls/hr IV .Q1H1M YUNIOR Stop: 04/14/20 17:30 Last Admin: 04/14/20 17:00 Dose: 999 mls/hr Documented by: [id number] Ceftriaxone Sodium (Rocephin) 2,000 mg in 70 mls @ 140 mls/hr IV NOW STA Stop: 04/14/20 16:50 Last Admin: 04/14/20 18:27 Dose: 140 mls/hr Documented by: [id number] Insulin Human Regular (Novolin-R Insulin Per Unit Charge) 10 units IV NOW STA Stop: 04/14/20 18:03 Last Admin: 04/14/20 18:32 Dose: 10 units Documented by: [id number] Cosigned by: [id number] Trimethoprim/Sulfamethoxazole (Sulfamethoxazole/Trimethoprim Ds 800/160mg Tab) 1 tab PO NOW ONE Stop: 04/14/20 16:22 Last Admin: 04/14/20 18:19 Dose: 1 tab Documented by: [id number] Imaging Data Radiologist's Impression: CT hand LT wo con CLINICAL HISTORY: poss osteo, attention to fifth finger COMPARISON STUDY: No previous studies for comparison. TECHNIQUE: Axial images of the left hand were obtained without IV contrast. Sagittal and coronal reconstructions were viewed. Automated exposure control was utilized for the study. A dose lowering technique was utilized adhering to the principles of ALARA. FINDINGS: Note is made of dorsal soft tissue swelling most pronounced at the level of the metacarpals. Note is also made of soft tissue swelling of multiple fingers. This is most pronounced within the left first and fifth digits. No fluid collection is identified on this unenhanced exam to suggest an abscess. There is no soft tissue gas. Note is made of bony erosion of the distal tuft of the distal phalanx of the left finger with adjacent bone fragments. There is left fifth finger soft tissue swelling. In addition, there is age indeterminate bony erosion of the distal tuft of the distal phalanx of the left thumb. No additional sites of bony erosion are identified. 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 IMPRESSION: 1. Bony erosion of the distal tuft of the distal phalanx of the left fifth finger highly suggestive of acute osteomyelitis. 2. Erosion and irregularity of the distal tuft of the distal phalanx of the left thumb. This could reflect osteomyelitis or nondisplaced fracture. An MRI of the left hand could be obtained for further evaluation. 3. Extensive left hand soft tissue swelling, including multiple fingers. This suggests cellulitis. No fluid collection is suggest abscess. No soft tissue gas. Discharge Plan Visit Data Chief Complaint: Hand Injury/Pain Stated Complaint: LEFT HAND REDNESS/SWOLLEN ED Provider: Kwaku Gonsales Discharge Problem: Osteomyelitis, Cellulitis, Left hand pain, Leukocytosis, Acute hyperglycemia Patient Disposition: Admitted As Inpatient Condition: Fair Forms Stand Alone Forms: [facility] [place] Prescriptions Prescriptions: No Action aspirin [Adult Aspirin Regimen] 81 mg tablet,delayed release (DR/EC) 81 mg PO QAM RF: 0 clopidogrel [Plavix] 75 mg tablet 75 mg PO QAM RF: 0 finasteride 5 mg tablet 5 mg PO QAM RF: 0 folic acid 1 mg tablet 1 mg PO QAM RF: 0 insulin aspart U-100 [Novolog Flexpen U-100 Insulin] 100 unit/mL insulin pen 0 units SQ DIRECTED RF: 0 levothyroxine 125 mcg tablet 125 mcg PO QAM RF: 0 multivitamin with minerals tablet 1 tab PO QAM RF: 0 tamsulosin [Flomax] 0.4 mg capsule 0.4 mg PO HS RF: 0 venlafaxine 75 mg capsule,extended release 24hr 225 mg PO QAM RF: 0 losartan 50 mg tablet 50 mg PO BID RF: 0 albuterol sulfate 90 mcg/actuation Hfa Aerosol Inhaler 2 puff INHALATION QID PRN (Reason: Shortness Of Breath Or Wheezing) RF: 0 furosemide 40 mg Tablet 40 mg PO QAM RF: 0 atorvastatin 40 mg Tablet 40 mg PO PM RF: 0 sennosides-docusate sodium [Senokot-S] 8.6-50 mg Tablet 1 tab-cap PO BID RF: 0 omeprazole 20 mg Capsule,Delayed Release(Dr/Ec) 20 mg PO QAM RF: 0 metoprolol succinate 25 mg Tablet Extended Release 24 Hr 25 mg PO QAM RF: 0 jfrqabqi-zxzbnlbqc-PS 3.5-10,000-1 mg/mL-unit/mL-% Drops,Suspension 4 drp OTIC (EAR) TID RF: 0 gabapentin 300 mg Tablet 300 mg PO DIRECTED RF: 0 Lantus Solostar U-100 Insulin 100 unit/mL (3 mL) Insulin Pen 100 unit SUBCUT QAM RF: 0 potassium chloride 20 mEq Tablet Extended Release 40 meq PO QAM RF: 0 Breo Ellipta 200-25 mcg/dose Blister With Device 1 inh INHALATION QAM RF: 0 ibuprofen [Advil] 200 mg Tablet 600 mg PO Q6H PRN (Reason: Pain) RF: 0 Referrals Referrals: Farzad Hatfield DO [Primary Care Provider] - Discharge Problem: Osteomyelitis Qualifiers: Osteomyelitis type: unspecified type Osteomyelitis location: hand Laterality: left Qualified Code(s): M86.9 - Osteomyelitis, unspecified Cellulitis Qualifiers: Site of cellulitis: extremity Site of cellulitis of extremity: upper extremity Laterality: left Qualified Code(s): L03.114 - Cellulitis of left upper limb Leukocytosis Qualifiers: Leukocytosis type: unspecified Qualified Code(s): D72.829 - Elevated white blood cell count, unspecified
[2020-04-14] MEDS ORDERED: SODIUM CHLORIDE 0.9% 1000ML 1,000 ML IV SCH (16:30)
[2020-04-14 17:13] LABS: Appearance Urine Clear (Clear); Bilirubin Urine Negative (Negative); Blood Urine Negative (Negative); Color Urine Yellow; Glucose Urine UA 3+ (Negative); Ketones Urine Negative (Negative); Leukocyte Esterase Urine Negative (Negative); Nitrite Urine Negative (Negative); Protein Urine Negative (Negative); Specific Gravity Urine 1.013 (1.000-1.030); Urobilinogen Urine Negative (Negative)
[2020-04-14 17:21] LABS: Basophils # (auto) 0.05 K/uL (0-0.2); Basophils % (auto) 0.3 %; Eosinophils # (auto) 0.03 K/uL (0-0.5); Eosinophils % (auto) 0.2 %; Hematocrit (blood only) 36.4 % (42-52); Hemoglobin 11.7 g/dL (14.0-18.0); Immature Granulocytes # (auto) 0.04 K/uL (0.00-0.02); Immature Granulocytes % (auto) 0.3 %; Lymphocytes # (auto) 1.33 K/uL (1.2-3.4); Lymphocytes % (auto) 8.4 %; Mean Corpuscular Hemoglobin 30.2 pg (25-34); Mean Corpuscular Hgb Conc 32.1 g/dL (32-36); Mean Corpuscular Volume 93.8 fL (80-100); Mean Platelet Volume 10.4 fL (7.4-10.4); Monocytes % (auto) 8.8 %; Neutrophils # (auto) 12.97 K/uL (1.4-6.5); Platelet Count 279 K/uL (130-400); RDW Standard Deviation 50.7 fL (36.4-46.3); Red Blood Count 3.88 M/uL (4.7-6.1); White Blood Count 15.82 K/uL (4.8-10.8)
[2020-04-14 17:31] LABS: Partial Thromboplastin Ratio 1.1; Partial Thromboplastin Time 31.8 Seconds (21.0-31.0); Prothrombin Time 10.5 Seconds (9.0-12.0)
[2020-04-14 17:57] LABS: Albumin Globulin Ratio 0.5 (0.9-2); BUN Creatinine Ratio 10.8 (10-20); Bilirubin,Total 0.6 mg/dl (0.2-1); Calcium 8.5 mg/dl (8.5-10.1); Creatinine Clr Calc Pharmacy 81.1 ml/min; Est GFR (African American) 71.8; Est GFR (Non-African American) 61.9; Globulin 5.6 gm/dl (2.5-4.0); Magnesium 2.1 mg/dl (1.8-2.4); Potassium 3.5 mmol/L (3.5-5.1); Total Protein 8.6 gm/dl (6.4-8.2)
[2020-04-14] MEDS ORDERED: NovoLIN-R INSULIN PER UNIT CHARGE IV STA (18:02)
[2020-04-14 18:14] LABS: Beta-Hydroxybutyrate 0.95 mg/dl (0.2-2.81)
--- NOTE | 2020-04-14 18:26 | CT Scan Report ---
CT hand LT wo con CLINICAL HISTORY: poss osteo, attention to fifth finger COMPARISON STUDY: No previous studies for comparison. TECHNIQUE: Axial images of the left hand were obtained without IV contrast. Sagittal and coronal lindsey nstructions were viewed. Automated exposure control was utilized for the study. A dose lowering tech nique was utilized adhering to the principles of ALARA. FINDINGS: Note is made of dorsal soft tissue swelling most pronounced at the level of the metacarpals . Note is also made of soft tissue swelling of multiple fingers. This is most pronounced within the l eft first and fifth digits. No fluid collection is identified on this unenhanced exam to suggest an a bscess. There is no soft tissue gas. Note is made of bony erosion of the distal tuft of the distal ph alanx of the left finger with adjacent bone fragments. There is left fifth finger soft tissue swellin g. In addition, there is age indeterminate bony erosion of the distal tuft of the distal phalanx of t he left thumb. No additional sites of bony erosion are identified. There is moderate osteoarthritis w ithin the left second and third metacarpophalangeal joints. IMPRESSION: 1. Bony erosion of the distal tuft of the distal phalanx of the left fifth finger highly suggestive o f acute osteomyelitis. 2. Erosion and irregularity of the distal tuft of the distal phalanx of the left thumb. This could r eflect osteomyelitis or nondisplaced fracture. An MRI of the left hand could be obtained for further evaluation. 3. Extensive left hand soft tissue swelling, including multiple fingers. This suggests cellulitis. No fluid collection is suggest abscess. No soft tissue gas. ACT 112: Negative or not required by law. Electronically signed by: Eddie Stephens M.D. 04/14/2020 6:25 PM
[2020-04-14] MEDS ORDERED: CONSULT PHARMACY STA (19:26)
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
[2020-04-14] MEDS ORDERED: GLUCOSE 40% GEL 15 GM TUBE PO PRN (20:41)
[2020-04-14] MEDS ORDERED: CARBOHYDRATES FOR HYPOGLYCEMIA PO PRN (20:41)
[2020-04-14] MEDS ORDERED: GLUCOSE 10 TABS/TUBE PO PRN (20:41)
[2020-04-14] MEDS ORDERED: GLUCAGON FOR INJ 1 MG VIAL SQ PRN (20:41)
[2020-04-14] MEDS ORDERED: POLYETHYLENE (MIRALAX) 17 GM PACK PO PRN (20:41)
[2020-04-14] MEDS ORDERED: DEXTROSE 50% 50 ML SYRINGE IV PRN (20:41)
[2020-04-14] MEDS ORDERED: PHARMACY GLYCEMIC MGMT CONSULT PRN (20:57)
[2020-04-14] MEDS ORDERED: INSULIN ASPART 100 UNITS/ML 3 ML PEN SC SCH (21:00)
[2020-04-14] MEDS ORDERED: INSULIN GLARGINE SOLOSTAR 100 UNITS/ML 3 ML PEN SC SCH (21:00)
[2020-04-14] MEDS ORDERED: ENOXAPARIN INJ 40 MG/0.4 ML SYR SQ SCH (21:00)
[2020-04-14] MEDS ORDERED: VANCOMYCIN CONSULT ACTIVE PRN (21:00)
[2020-04-14] MEDS ORDERED: GABAPENTIN 600 MG TAB PO ONE (21:07)
[2020-04-14] MEDS: ACETAMINOPHEN 325 MG TAB PO PRN (21:11)
[2020-04-14] MEDS ORDERED: GABAPENTIN 1200MG ALCOHOL WITHDRAWAL LOAD PO SCH (21:15)
[2020-04-14] MEDS ORDERED: VANCOMYCIN HCL 2,750 MG in SODIUM CHLORIDE 0.9% 500 ML IV SCH (21:30)
[2020-04-14] MEDS: HEPARIN SOD 5,000 UNIT/0.5 ML VIAL SQ SCH (22:09)
[2020-04-15] MEDS: INSULIN ASPART 100 UNITS/ML 3 ML PEN SC SCH ×6 (00:30→22:00)
[2020-04-15 02:39] LABS: Hematocrit (blood only) 35.1 % (42-52); Hemoglobin 11.3 g/dL (14.0-18.0); Mean Corpuscular Hemoglobin 30.6 pg (25-34); Mean Corpuscular Hgb Conc 32.2 g/dL (32-36); Mean Corpuscular Volume 95.1 fL (80-100); Mean Platelet Volume 10.1 fL (7.4-10.4); Platelet Count 291 K/uL (130-400); RDW Coefficient of Variation 15.1 % (11.5-14.5); RDW Standard Deviation 52.3 fL (36.4-46.3); Red Blood Count 3.69 M/uL (4.7-6.1); White Blood Count 16.75 K/uL (4.8-10.8)
[2020-04-15 02:56] LABS: BUN Creatinine Ratio 11.4 (10-20); Calcium 8.2 mg/dl (8.5-10.1); Creatinine Clr Calc Pharmacy 99.5 ml/min; Est GFR (Non-African American) 79.3; Potassium 3.8 mmol/L (3.5-5.1)
[2020-04-15] MEDS: HEPARIN SOD 5,000 UNIT/0.5 ML VIAL SQ SCH ×3 (05:59→22:01)
[2020-04-15] MEDS: GABAPENTIN 600 MG TAB PO SCH ×3 (05:59→21:59)
[2020-04-15 06:44] LABS: Estimated Average Glucose 220 mg/dl; Hemoglobin A1C 9.3 % (4.5-5.6)
[2020-04-15] MEDS ORDERED: INSULIN GLARGINE SOLOSTAR 100 UNITS/ML 3 ML PEN SC SCH (09:00)
[2020-04-15] MEDS ORDERED: PIPERACILL/TAZOBAC CONSULT ACTIVE PRN (09:03)
--- NOTE | 2020-04-15 09:13 | Pharmacy Report ---
Pharmacy Abx Dose Short Note - Date of Service April 15, 2020 - Assessment & Plan Assessment 64 year old M receiving vancomycin/Zosyn for treatment of hand osteomyelitis Day # 1 of antimicrobial therapy. Plan Vancomycin * Population pharmacokinetics suggest a half-life of ~8 hours with elimination constant of 0.086 hr-1. * loading dose of vancomycin 2750 mg IV (23 mg/kg) IV x 1 given last night. * Start vancomycin 1750 mg (14.7 mg/kg) IV q12 hours. * Due to patient's body habitus expect some sort of accumulation so will utilize an extended dosing interval. * Check trough prior to 1000 dose tomorrow 04/16. Zosyn * loading dose of 4.5 gm IV x 1 given then due to patient's body habitus and severe nature of disease (osteomyelitis) give 4.5 gm IV q8 hours extended infusion. Pharmacy will continue to follow and will adjust dose/frequency as necessary. Thank you.
[2020-04-15] MEDS ORDERED: PIPERACILLIN/TAZOBACTAM 4.5 GM in DEXTROSE 5% 100 ML IV ONE (10:00)
[2020-04-15] MEDS: VANCOMYCIN HCL 1,750 MG in SODIUM CHLORIDE 0.9% 500 ML IV SCH ×2 (10:48→22:02)
[2020-04-15] MEDS ORDERED: ALBUTEROL HFA 8 GM INHALER INH PRN (11:18)
[2020-04-15] MEDS ORDERED: INSULIN GLARGINE SOLOSTAR 100 UNITS/ML 3 ML PEN SC ONE (12:30)
--- NOTE | 2020-04-15 13:09 | Pharmacy Report ---
Glycemic Control Consultation - Date of Service April 15, 2020 - Scope Scope: Glycemic Pharmacist consulted for glycemic control and to write orders per [facility] inpatient glycemic control protocol. - Objective Weight: 119 kg Accuchecks BSG (last 24hrs): 04/14/20 04/14/20 04/15/20 17:00 19:16 00:05 Glucose 338 H* POC Glucose 198 H 104 H 04/15/20 04/15/20 04/15/20 02:29 04:01 07:33 Glucose 123 H POC Glucose 103 H 81 04/15/20 11:46 Glucose POC Glucose 211 H Laboratory Data (last 24hrs): 04/14/20 04/15/20 17:00 02:29 Potassium 3.5 3.8 Carbon Dioxide 24 27 Anion Gap 9.0 4.0 Creatinine 1.24 1.01 Est Cr Clr Drug Dosing 81.1 99.5 Beta-Hydroxybutyric Acd 0.95 HbA1c: Hemoglobin A1c 9.3 % (4.5-5.6) H 04/15/20 02:29 - Recent Pertinent Medications Outpatient Anti-diabetic Regimen: * Lantus 100 units SQ qAM * Novolog 15 units in the morning and 25 units in the evening * A1c = 9.3 % 04/15/20 The patient is currently receiving: * Basal insulin: Lantus -- units every -- hours * Correctional Insulin: Novolog Correction per scale ACHS Goal Range: Low 110 mg/dL - High 140 mg/dL Correction Factor: 10 mg/dL/unit * Prandial insulin: Per carb ratio of 1 unit per 3 grams CHO consumed * Oral Agents: Risk Factors for Insulin Resistance: * Infection: osteomyelitis receiving vancomycin and Zosyn * Diet: T2DM - Assessment & Plan Assessment & Plan: ASSESSMENT: * Ms Hatfield is a 64 y/o M with a PMH of T1DM who presents with osteomyelitis. Harris haque reports taking large doses of insulin at home ... which is possible as patient may have components of insulin resistance. * Per previous admission, patient received Lantus 30 units BID plus loose Novolog scale. BSGs were in the 200s during that admission. * Had originally planned for Lantus 50 units daily (half dose as patient's regimen is very basal heavy). However, with elevated lunch BSG gave additional 20 units to make 70 units daily. Represents a 30% reduction from home dose which I feel is reasonable. * Choose Novolog based upon basal regimen of 70 units/day. PLAN FOR INPATIENT GLYCEMIC CONTROL: * Basal insulin * Lantus 70 units SQ qAM * Bolus insulin * NovoLog per scale ACHS or Q6hrs while NPO * Goal Range: Low 110 mg/dL - High 140 mg/dL * Correction Factor: 15 mg/dL/unit * Nutritional / Prandial insulin per carb ratio of 1 unit per 4 grams CHO consumed * Please note that the plan above was derived based on current level of insulin resistance and hospital stress. These recommendations are appropriate for inpatient admission only. Plan of care upon discharge will need to be reassessed to avoid potential outpatient hypo/hyperglycemia. Thank you.
[2020-04-15] MEDS: POTASSIUM CHLORIDE CRTAB 20 MEQ TABCR PO SCH (13:10)
[2020-04-15] MEDS: CLOPIDOGREL BISULFATE 75 MG TAB PO SCH (13:10)
[2020-04-15] MEDS: METOPROLOL SUCC 25MG EXT REL TAB PO SCH (13:10)
[2020-04-15] MEDS: LOSARTAN POTASSIUM 50 MG TAB PO SCH ×2 (13:11→21:58)
[2020-04-15] MEDS: CEROVITE ADV FORMULA TAB PO SCH (13:11)
[2020-04-15] MEDS: FUROSEMIDE 40 MG TAB PO SCH (13:11)
[2020-04-15] MEDS: DOCUSATE SODIUM/SENNA 50/8.6MG TAB PO SCH (13:11)
[2020-04-15] MEDS: ASPIRIN 81 MG ECTAB PO SCH (13:11)
[2020-04-15] MEDS: VENLAFAXINE HCL XR 75 MG CAPXR PO SCH (13:12)
--- NOTE | 2020-04-15 13:15 | Orthopedic Consultation ---
Date of Consultation April 15, 2020 Assessment & Plan (1) Cellulitis of hand: Cellulitis of left upper extremity slightly improved, questionable osteomyelitis of the first and fifth digits, will obtain MRI at this time, no fluid collection on CT, continue with IV antibiotics per medical team, local wound care, ice and elevation, will discuss with hand specialist. Thank you for the consultation. History of Present Illness Reason for Consultation: Left upper extremity cellulitis and questionable osteomyelitis Attending Physician: Travon Cruz MD History of Present Illness The patient is a 64-year-old male with diabetes and peripheral neuropathy acute onset left upper extremity edema and erythema. Patient previously treated in February for similar complaints involving the first digit on the left upper extremity. Onset of symptoms 04/12/2020. Denies F/C/N/V/SOB/CP. Allergies Allergy/AdvReac Type Severity Reaction Status Date / Time DEIDRE Inhibitors Allergy Unknown COUGH Verified 04/14/20 18:08 Home Medications Home Medications Medication Instructions Recorded Confirmed Type aspirin 81 mg tablet,delayed 81 mg PO QAM 02/04/18 04/14/20 History release clopidogrel 75 mg tablet 75 mg PO QAM 02/04/18 04/14/20 History finasteride 5 mg tablet 5 mg PO QAM tab 02/04/18 04/14/20 History folic acid 1 mg tablet 1 mg PO QAM tab 02/04/18 04/14/20 History insulin aspart U-100 100 unit/mL 0 units SQ DIRECTED ml 02/04/18 04/14/20 History (3 mL) subcutaneous pen levothyroxine 125 mcg tablet 125 mcg PO QAM 02/04/18 04/14/20 History multivitamin with minerals 1 tab PO QAM tab 02/04/18 04/14/20 History tamsulosin 0.4 mg capsule 0.4 mg PO HS cap 02/04/18 04/14/20 History venlafaxine 75 mg capsule,extended 75 mg PO QAM cap 02/04/18 04/14/20 History release 24 hr albuterol sulfate 2 puff INHALATION QID PRN 05/13/18 04/14/20 History losartan 50 mg PO BID 05/13/18 04/14/20 History atorvastatin 40 mg PO PM 04/14/20 04/14/20 History fluticasone furoate-vilanterol 1 inh INHALATION QAM 04/14/20 04/14/20 History [Breo Ellipta] furosemide 40 mg PO QAM 04/14/20 04/14/20 History gabapentin 300 mg PO DAILY 04/14/20 04/14/20 History ibuprofen [Advil] 600 mg PO Q6H PRN 04/14/20 04/14/20 History insulin glargine [Lantus Solostar 100 unit SUBCUT QAM 04/14/20 04/14/20 History U-100 Insulin] levocetirizine 5 mg PO DAILY 04/14/20 04/14/20 History metoprolol succinate 25 mg PO QAM 04/14/20 04/14/20 History quxgkrdb-srikijatf-FL 4 drp OTIC (EAR) TID 04/14/20 04/14/20 History omeprazole 20 mg PO QAM 04/14/20 04/14/20 History potassium chloride 40 meq PO QAM 04/14/20 04/14/20 History sennosides-docusate sodium 1 tab-cap PO DAILY 04/14/20 04/14/20 History [Senokot-S] Patient History Medical History Altered mental status Aortic root enlargement BPH (benign prostatic hyperplasia) CAD (coronary artery disease) COPD (chronic obstructive pulmonary disease) Dyslipidemia GERD (gastroesophageal reflux disease) HTN (hypertension) Hyponatremia NSTEMI (non-ST elevated myocardial infarction) NSTEMI (non-ST elevated myocardial infarction) NSTEMI (non-ST elevated myocardial infarction) CHANTELL (obstructive sleep apnea) Type 1 diabetes Surgical History H/O adenoidectomy History of hip replacement History of tonsillectomy Family History Other Family history non-contributory Social History Smoking Status: Never smoker Tobacco Type: Cigarettes Cigarettes Per Day: 30; Hx Alcohol Use: No Hx Substance Use: No Preferred Language: Albanian Communication Ability: Effective Visual Impairment: No Limitations Hearing Ability: Normal Beliefs That Will Affect Care: None marital status: Current Living Situation: Spouse and Family Feels Safe at Home: Yes Safety Concerns: Feels Safe At This Time Assistive Devices: CPAP Review of Systems Review of Systems: All systems reviewed & are unremarkable except as noted in HPI & below Constitutional: as per Subjective / HPI Physical Exam Physical Exam: Left upper extremity decreased sensation/neuropathy at baseline, 2 cm x 2 cm necrosis of the distal aspect of the fifth digit, + edema left hand and forearm, erythema of left hand extending into the forearm has slightly improved since admission, decreased range of motion of the digits. Constitutional: WD/WN, vitals as above Results & Data ([facility]) Vital Signs (Past 12 Hours) Vital Signs Temp Pulse Pulse Resp BP Pulse Ox 04/15/20 12:00 37.0 C 83 18 164/85 H 94 04/15/20 07:38 36.5 C 67 18 160/87 H 97 04/15/20 07:26 64 04/15/20 04:00 37.1 C 83 20 149/84 H 99 Laboratory Results 04/15/20 04/15/20 04/15/20 Range/Units 11:46 07:33 04:01 WBC (4.8-10.8) K/uL RBC (4.7-6.1) M/uL Hgb (14.0-18.0) g/dL Hct (42-52) % MCV (80-100) fL MCH (25-34) pg MCHC (32-36) g/dL RDW Std Deviation (36.4-46.3) fL RDW Coeff of Juan Manuel (11.5-14.5) % Plt Count (130-400) K/uL MPV (7.4-10.4) fL Immature Gran % (Auto) % Neut % (Auto) % Lymph % (Auto) % [place] % (Auto) % Eos % (Auto) % Baso % (Auto) % Neut # (Auto) (1.4-6.5) K/uL Lymph # (Auto) (1.2-3.4) K/uL [place] # (Auto) (0.11-0.59) K/uL Eos # (Auto) (0-0.5) K/uL Baso # (Auto) (0-0.2) K/uL Immature Gran # (Auto) (0.00-0.02) K/uL PT (9.0-12.0) Seconds INR (0.9-1.1) APTT (21.0-31.0) Seconds PTT Ratio Sodium (136-145) mmol/L Potassium (3.5-5.1) mmol/L Chloride (98-107) mmol/L Carbon Dioxide (21-32) mmol/L Anion Gap (3-11) BUN (7-18) mg/dl Creatinine (0.6-1.4) mg/dl Est Cr Clr Drug Dosing ml/min Est GFR ( Amer) Est GFR (Non-Af Amer) BUN/Creatinine Ratio (10-20) Glucose (70-99) mg/dl POC Glucose 211 H 81 103 H (70-99) mg/dl Estimat Average Glucose mg/dl Hemoglobin A1c (4.5-5.6) % Lactate (0.4-2.0) mmol/L Calcium (8.5-10.1) mg/dl Magnesium (1.8-2.4) mg/dl Total Bilirubin (0.2-1) mg/dl AST (15-37) U/L ALT (12-78) U/L Alkaline Phosphatase (45-117) U/L Total Protein (6.4-8.2) gm/dl Albumin (3.4-5.0) gm/dl Globulin (2.5-4.0) gm/dl Albumin/Globulin Ratio (0.9-2) Beta-Hydroxybutyric Acd (0.2-2.81) mg/dl Procalcitonin (0-0.5) ng/ml Urine Color Urine Appearance (Clear) Urine pH (4.5-7.5) Ur Specific [place] (1.000-1.030) Urine Protein (Negative) Urine Glucose (UA) (Negative) Urine Ketones (Negative) Urine Blood (Negative) Urine Nitrite (Negative) Urine Bilirubin (Negative) Urine Urobilinogen (Negative) Ur Leukocyte Esterase (Negative) 04/15/20 04/15/20 04/15/20 Range/Units 02:29 02:29 02:29 WBC 16.75 H (4.8-10.8) K/uL RBC 3.69 L (4.7-6.1) M/uL Hgb 11.3 L (14.0-18.0) g/dL Hct 35.1 L (42-52) % MCV 95.1 (80-100) fL MCH 30.6 (25-34) pg MCHC 32.2 (32-36) g/dL RDW Std Deviation 52.3 H (36.4-46.3) fL RDW Coeff of Juan Manuel 15.1 H (11.5-14.5) % Plt Count 291 (130-400) K/uL MPV 10.1 (7.4-10.4) fL Immature Gran % (Auto) % Neut % (Auto) % Lymph % (Auto) % [place] % (Auto) % Eos % (Auto) % Baso % (Auto) % Neut # (Auto) (1.4-6.5) K/uL Lymph # (Auto) (1.2-3.4) K/uL [place] # (Auto) (0.11-0.59) K/uL Eos # (Auto) (0-0.5) K/uL Baso # (Auto) (0-0.2) K/uL Immature Gran # (Auto) (0.00-0.02) K/uL PT (9.0-12.0) Seconds INR (0.9-1.1) APTT (21.0-31.0) Seconds PTT Ratio Sodium 135 L (136-145) mmol/L Potassium 3.8 (3.5-5.1) mmol/L Chloride 104 (98-107) mmol/L Carbon Dioxide 27 (21-32) mmol/L Anion Gap 4.0 (3-11) BUN 11 (7-18) mg/dl Creatinine 1.01 (0.6-1.4) mg/dl Est Cr Clr Drug Dosing 99.5 ml/min Est GFR ( Amer) 92.0 Est GFR (Non-Af Amer) 79.3 BUN/Creatinine Ratio 11.4 (10-20) Glucose 123 H (70-99) mg/dl POC Glucose (70-99) mg/dl Estimat Average Glucose 220 mg/dl Hemoglobin A1c 9.3 H (4.5-5.6) % Lactate (0.4-2.0) mmol/L Calcium 8.2 L (8.5-10.1) mg/dl Magnesium (1.8-2.4) mg/dl Total Bilirubin (0.2-1) mg/dl AST (15-37) U/L ALT (12-78) U/L Alkaline Phosphatase (45-117) U/L Total Protein (6.4-8.2) gm/dl Albumin (3.4-5.0) gm/dl Globulin (2.5-4.0) gm/dl Albumin/Globulin Ratio (0.9-2) Beta-Hydroxybutyric Acd (0.2-2.81) mg/dl Procalcitonin (0-0.5) ng/ml Urine Color Urine Appearance (Clear) Urine pH (4.5-7.5) Ur Specific [place] (1.000-1.030) Urine Protein (Negative) Urine Glucose (UA) (Negative) Urine Ketones (Negative) Urine Blood (Negative) Urine Nitrite (Negative) Urine Bilirubin (Negative) Urine Urobilinogen (Negative) Ur Leukocyte Esterase (Negative) 04/15/20 04/15/20 04/14/20 Range/Units 02:29 00:05 19:16 WBC (4.8-10.8) K/uL RBC (4.7-6.1) M/uL Hgb (14.0-18.0) g/dL Hct (42-52) % MCV (80-100) fL MCH (25-34) pg MCHC (32-36) g/dL RDW Std Deviation (36.4-46.3) fL RDW Coeff of Juan Manuel (11.5-14.5) % Plt Count (130-400) K/uL MPV (7.4-10.4) fL Immature Gran % (Auto) % Neut % (Auto) % Lymph % (Auto) % [place] % (Auto) % Eos % (Auto) % Baso % (Auto) % Neut # (Auto) (1.4-6.5) K/uL Lymph # (Auto) (1.2-3.4) K/uL [place] # (Auto) (0.11-0.59) K/uL Eos # (Auto) (0-0.5) K/uL Baso # (Auto) (0-0.2) K/uL Immature Gran # (Auto) (0.00-0.02) K/uL PT (9.0-12.0) Seconds INR (0.9-1.1) APTT (21.0-31.0) Seconds PTT Ratio Sodium (136-145) mmol/L Potassium (3.5-5.1) mmol/L Chloride (98-107) mmol/L Carbon Dioxide (21-32) mmol/L Anion Gap (3-11) BUN (7-18) mg/dl Creatinine (0.6-1.4) mg/dl Est Cr Clr Drug Dosing ml/min Est GFR ( Amer) Est GFR (Non-Af Amer) BUN/Creatinine Ratio (10-20) Glucose (70-99) mg/dl POC Glucose 104 H 198 H (70-99) mg/dl Estimat Average Glucose mg/dl Hemoglobin A1c (4.5-5.6) % Lactate 1.3 (0.4-2.0) mmol/L Calcium (8.5-10.1) mg/dl Magnesium (1.8-2.4) mg/dl Total Bilirubin (0.2-1) mg/dl AST (15-37) U/L ALT (12-78) U/L Alkaline Phosphatase (45-117) U/L Total Protein (6.4-8.2) gm/dl Albumin (3.4-5.0) gm/dl Globulin (2.5-4.0) gm/dl Albumin/Globulin Ratio (0.9-2) Beta-Hydroxybutyric Acd (0.2-2.81) mg/dl Procalcitonin (0-0.5) ng/ml Urine Color Urine Appearance (Clear) Urine pH (4.5-7.5) Ur Specific [place] (1.000-1.030) Urine Protein (Negative) Urine Glucose (UA) (Negative) Urine Ketones (Negative) Urine Blood (Negative) Urine Nitrite (Negative) Urine Bilirubin (Negative) Urine Urobilinogen (Negative) Ur Leukocyte Esterase (Negative) 04/14/20 04/14/20 04/14/20 Range/Units 18:59 17:00 17:00 WBC (4.8-10.8) K/uL RBC (4.7-6.1) M/uL Hgb (14.0-18.0) g/dL Hct (42-52) % MCV (80-100) fL MCH (25-34) pg MCHC (32-36) g/dL RDW Std Deviation (36.4-46.3) fL RDW Coeff of Juan Manuel (11.5-14.5) % Plt Count (130-400) K/uL MPV (7.4-10.4) fL Immature Gran % (Auto) % Neut % (Auto) % Lymph % (Auto) % [place] % (Auto) % Eos % (Auto) % Baso % (Auto) % Neut # (Auto) (1.4-6.5) K/uL Lymph # (Auto) (1.2-3.4) K/uL [place] # (Auto) (0.11-0.59) K/uL Eos # (Auto) (0-0.5) K/uL Baso # (Auto) (0-0.2) K/uL Immature Gran # (Auto) (0.00-0.02) K/uL PT (9.0-12.0) Seconds INR (0.9-1.1) APTT (21.0-31.0) Seconds PTT Ratio Sodium (136-145) mmol/L Potassium (3.5-5.1) mmol/L Chloride (98-107) mmol/L Carbon Dioxide (21-32) mmol/L Anion Gap (3-11) BUN (7-18) mg/dl Creatinine (0.6-1.4) mg/dl Est Cr Clr Drug Dosing ml/min Est GFR ( Amer) Est GFR (Non-Af Amer) BUN/Creatinine Ratio (10-20) Glucose (70-99) mg/dl POC Glucose (70-99) mg/dl Estimat Average Glucose mg/dl Hemoglobin A1c (4.5-5.6) % Lactate 3.4 H* (0.4-2.0) mmol/L Calcium (8.5-10.1) mg/dl Magnesium (1.8-2.4) mg/dl Total Bilirubin (0.2-1) mg/dl AST (15-37) U/L ALT (12-78) U/L Alkaline Phosphatase (45-117) U/L Total Protein (6.4-8.2) gm/dl Albumin (3.4-5.0) gm/dl Globulin (2.5-4.0) gm/dl Albumin/Globulin Ratio (0.9-2) Beta-Hydroxybutyric Acd (0.2-2.81) mg/dl Procalcitonin 0.23 (0-0.5) ng/ml Urine Color Yellow Urine Appearance Clear (Clear) Urine pH 6.0 (4.5-7.5) Ur Specific [place] 1.013 (1.000-1.030) Urine Protein Negative (Negative) Urine Glucose (UA) 3+ H (Negative) Urine Ketones Negative (Negative) Urine Blood Negative (Negative) Urine Nitrite Negative (Negative) Urine Bilirubin Negative (Negative) Urine Urobilinogen Negative (Negative) Ur Leukocyte Esterase Negative (Negative) 04/14/20 04/14/20 04/14/20 Range/Units 17:00 17:00 17:00 WBC (4.8-10.8) K/uL RBC (4.7-6.1) M/uL Hgb (14.0-18.0) g/dL Hct (42-52) % MCV (80-100) fL MCH (25-34) pg MCHC (32-36) g/dL RDW Std Deviation (36.4-46.3) fL RDW Coeff of Juan Manuel (11.5-14.5) % Plt Count (130-400) K/uL MPV (7.4-10.4) fL Immature Gran % (Auto) % Neut % (Auto) % Lymph % (Auto) % [place] % (Auto) % Eos % (Auto) % Baso % (Auto) % Neut # (Auto) (1.4-6.5) K/uL Lymph # (Auto) (1.2-3.4) K/uL [place] # (Auto) (0.11-0.59) K/uL Eos # (Auto) (0-0.5) K/uL Baso # (Auto) (0-0.2) K/uL Immature Gran # (Auto) (0.00-0.02) K/uL PT 10.5 (9.0-12.0) Seconds INR 1.0 (0.9-1.1) APTT 31.8 H (21.0-31.0) Seconds PTT Ratio 1.1 Sodium 132 L (136-145) mmol/L Potassium 3.5 (3.5-5.1) mmol/L Chloride 99 (98-107) mmol/L Carbon Dioxide 24 (21-32) mmol/L Anion Gap 9.0 (3-11) BUN 13 (7-18) mg/dl Creatinine 1.24 (0.6-1.4) mg/dl Est Cr Clr Drug Dosing 81.1 ml/min Est GFR ( Amer) 71.8 Est GFR (Non-Af Amer) 61.9 BUN/Creatinine Ratio 10.8 (10-20) Glucose 338 H* (70-99) mg/dl POC Glucose (70-99) mg/dl Estimat Average Glucose mg/dl Hemoglobin A1c (4.5-5.6) % Lactate 2.7 H* (0.4-2.0) mmol/L Calcium 8.5 (8.5-10.1) mg/dl Magnesium 2.1 (1.8-2.4) mg/dl Total Bilirubin 0.6 (0.2-1) mg/dl AST 22 (15-37) U/L ALT 24 (12-78) U/L Alkaline Phosphatase 148 H (45-117) U/L Total Protein 8.6 H (6.4-8.2) gm/dl Albumin 3.0 L (3.4-5.0) gm/dl Globulin 5.6 H (2.5-4.0) gm/dl Albumin/Globulin Ratio 0.5 L (0.9-2) Beta-Hydroxybutyric Acd 0.95 (0.2-2.81) mg/dl Procalcitonin (0-0.5) ng/ml Urine Color Urine Appearance (Clear) Urine pH (4.5-7.5) Ur Specific [place] (1.000-1.030) Urine Protein (Negative) Urine Glucose (UA) (Negative) Urine Ketones (Negative) Urine Blood (Negative) Urine Nitrite (Negative) Urine Bilirubin (Negative) Urine Urobilinogen (Negative) Ur Leukocyte Esterase (Negative) 04/14/20 Range/Units 17:00 WBC 15.82 H (4.8-10.8) K/uL RBC 3.88 L (4.7-6.1) M/uL Hgb 11.7 L (14.0-18.0) g/dL Hct 36.4 L (42-52) % MCV 93.8 (80-100) fL MCH 30.2 (25-34) pg MCHC 32.1 (32-36) g/dL RDW Std Deviation 50.7 H (36.4-46.3) fL RDW Coeff of Juan Manuel 15.0 H (11.5-14.5) % Plt Count 279 (130-400) K/uL MPV 10.4 (7.4-10.4) fL Immature Gran % (Auto) 0.3 % Neut % (Auto) 82.0 % Lymph % (Auto) 8.4 % [place] % (Auto) 8.8 % Eos % (Auto) 0.2 % Baso % (Auto) 0.3 % Neut # (Auto) 12.97 H (1.4-6.5) K/uL Lymph # (Auto) 1.33 (1.2-3.4) K/uL [place] # (Auto) 1.40 H (0.11-0.59) K/uL Eos # (Auto) 0.03 (0-0.5) K/uL Baso # (Auto) 0.05 (0-0.2) K/uL Immature Gran # (Auto) 0.04 H (0.00-0.02) K/uL PT (9.0-12.0) Seconds INR (0.9-1.1) APTT (21.0-31.0) Seconds PTT Ratio Sodium (136-145) mmol/L Potassium (3.5-5.1) mmol/L Chloride (98-107) mmol/L Carbon Dioxide (21-32) mmol/L Anion Gap (3-11) BUN (7-18) mg/dl Creatinine (0.6-1.4) mg/dl Est Cr Clr Drug Dosing ml/min Est GFR ( Amer) Est GFR (Non-Af Amer) BUN/Creatinine Ratio (10-20) Glucose (70-99) mg/dl POC Glucose (70-99) mg/dl Estimat Average Glucose mg/dl Hemoglobin A1c (4.5-5.6) % Lactate (0.4-2.0) mmol/L Calcium (8.5-10.1) mg/dl Magnesium (1.8-2.4) mg/dl Total Bilirubin (0.2-1) mg/dl AST (15-37) U/L ALT (12-78) U/L Alkaline Phosphatase (45-117) U/L Total Protein (6.4-8.2) gm/dl Albumin (3.4-5.0) gm/dl Globulin (2.5-4.0) gm/dl Albumin/Globulin Ratio (0.9-2) Beta-Hydroxybutyric Acd (0.2-2.81) mg/dl Procalcitonin (0-0.5) ng/ml Urine Color Urine Appearance (Clear) Urine pH (4.5-7.5) Ur Specific [place] (1.000-1.030) Urine Protein (Negative) Urine Glucose (UA) (Negative) Urine Ketones (Negative) Urine Blood (Negative) Urine Nitrite (Negative) Urine Bilirubin (Negative) Urine Urobilinogen (Negative) Ur Leukocyte Esterase (Negative) Diagnostic Findings CT hand LT wo con CLINICAL HISTORY: poss osteo, attention to fifth finger COMPARISON STUDY: No previous studies for comparison. TECHNIQUE: Axial images of the left hand were obtained without IV contrast. Sagittal and coronal reconstructions were viewed. Automated exposure control was utilized for the study. A dose lowering technique was utilized adhering to the principles of ALARA. FINDINGS: Note is made of dorsal soft tissue swelling most pronounced at the level of the metacarpals. Note is also made of soft tissue swelling of multiple fingers. This is most pronounced within the left first and fifth digits. No fluid collection is identified on this unenhanced exam to suggest an abscess. There is no soft tissue gas. Note is made of bony erosion of the distal tuft of the distal phalanx of the left finger with adjacent bone fragments. There is left fifth finger soft tissue swelling. In addition, there is age indeterminate bony erosion of the distal tuft of the distal phalanx of the left thumb. No additional sites of bony erosion are identified. 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 IMPRESSION: 1. Bony erosion of the distal tuft of the distal phalanx of the left fifth finger highly suggestive of acute osteomyelitis. 2. Erosion and irregularity of the distal tuft of the distal phalanx of the left thumb. This could reflect osteomyelitis or nondisplaced fracture. An MRI of the left hand could be obtained for further evaluation. 3. Extensive left hand soft tissue swelling, including multiple fingers. This suggests cellulitis. No fluid collection is suggest abscess. No soft tissue gas.
[2020-04-15] MEDS: FLUTICASONE/VILANTEROL 200/25MCG 14 PUFFS/INHALER INH SCH (13:29)
--- NOTE | 2020-04-15 13:45 | Hospitalist Progress Note ---
Date of Service April 15, 2020 Assessment & Plan (1) Osteomyelitis: (2) Cellulitis: (3) Lactic acidosis: CT scan of the hand: 1. Bony erosion of the distal tuft of the distal phalanx of the left fifth finger highly suggestive of acute osteomyelitis. 2. Erosion and irregularity of the distal tuft of the distal phalanx of the left thumb. This could reflect osteomyelitis or nondisplaced fracture. An MRI of the left hand could be obtained for further evaluation. 3. Extensive left hand soft tissue swelling, including multiple fingers. This suggests cellulitis. No fluid collection is suggest abscess. No soft tissue gas. -- blood cultures: pending -- wound culture: pending -- continue Vanco and Zosyn -- Ortho: MRI of the hand ordered (4) Acute hyperglycemia: (5) Type 1 diabetes: Patient with uncontrolled Type 1 DM likely contributing to his severe infection. a1c 9.3 Pharmacy Glycemic Consult continue Lantus and Insulin Sliding Scale (6) COPD (chronic obstructive pulmonary disease): (7) CHANTELL (obstructive sleep apnea): respiratory status stable Continue CPAP while inpatient. continue Breo, PRN inhaler (8) HTN (hypertension): Continue home BP medications and monitor closely for any changes. (9) CHF (congestive heart failure): euvolemic Continue Lasix. (10) Hyponatremia: Na 132 --> 135 (11) DVT prophylaxis: Lovenox Disposition lives at home PT/OT evaluation Admission and Anticipated Discharge Date Admission Date: April 14, 2020 Subjective ff up for left hand cellulitis, 1st and 5th digit osteomyelitis seen sitting up in bed, comfortable, not in distress states he feels about the same as yesterday still has pain, tenderness on the left hand, forearm denies fever/chills, headache, nausea no chest pain, dyspnea, palpitations no other symptoms Review of Systems Review of Systems: All systems reviewed & are unremarkable except as noted in Subjective Physical Exam Physical Exam: General- oriented x 3, not in distress, speaks in sentences with no effort or accessory muscle use Head- atraumatic Eyes- PERRL, EOMI, anicteric ENT- oropharynx clear Neck- supple, no JVD, no adenopathy, no thyromegaly; carotids +2/2, no bruits appreciated Lungs- clear to auscultation bilaterally, no rales/wheezes Heart- normal rate, regular rhythm; no murmur, no gallop, no rub appreciated Abdomen- normal bowel sounds, nondistended, soft, nontender, no masses or hepatosplenomegaly Extremities- Left hand: (+) eschar on the distal phalanx of the 1st and 5th digit (+) moderate edema, mild erythema extending to the left upper arm RIght hand:s/p amputation of the index finger no pretibial edema, no calf tenderness; peripheral pulses intact Neuro- alert, oriented x 3; CN 2-12 grossly intact; motor 5/5 bilaterally;sensation 100% on all extremities; no other gross focal neurologic deficits Skin- warm & dry Results & Data Results & Data ([facility]) Vital Signs (Past 12 Hours) Vital Signs Temp Pulse Pulse Resp BP Pulse Ox 04/15/20 12:00 37.0 C 83 18 164/85 H 94 04/15/20 07:38 36.5 C 67 18 160/87 H 97 04/15/20 07:26 64 04/15/20 04:00 37.1 C 83 20 149/84 H 99 Laboratory Results Cardiac Enzymes 04/14/20 Range/Units 17:00 AST 22 (15-37) U/L Coagulation 04/14/20 Range/Units 17:00 PT 10.5 (9.0-12.0) Seconds APTT 31.8 H (21.0-31.0) Seconds CBC 04/14/20 04/15/20 Range/Units 17:00 02:29 WBC 15.82 H 16.75 H (4.8-10.8) K/uL RBC 3.88 L 3.69 L (4.7-6.1) M/uL Hgb 11.7 L 11.3 L (14.0-18.0) g/dL Hct 36.4 L 35.1 L (42-52) % Plt Count 279 291 (130-400) K/uL Neut # (Auto) 12.97 H (1.4-6.5) K/uL Lymph # (Auto) 1.33 (1.2-3.4) K/uL [place] # (Auto) 1.40 H (0.11-0.59) K/uL Eos # (Auto) 0.03 (0-0.5) K/uL Baso # (Auto) 0.05 (0-0.2) K/uL Comprehensive Metabolic Panel 04/14/20 04/15/20 Range/Units 17:00 02:29 Sodium 132 L 135 L (136-145) mmol/L Potassium 3.5 3.8 (3.5-5.1) mmol/L Chloride 99 104 (98-107) mmol/L Carbon Dioxide 24 27 (21-32) mmol/L BUN 13 11 (7-18) mg/dl Creatinine 1.24 1.01 (0.6-1.4) mg/dl Glucose 338 H* 123 H (70-99) mg/dl Calcium 8.5 8.2 L (8.5-10.1) mg/dl AST 22 (15-37) U/L ALT 24 (12-78) U/L Alkaline Phosphatase 148 H (45-117) U/L Total Protein 8.6 H (6.4-8.2) gm/dl Albumin 3.0 L (3.4-5.0) gm/dl Intake and Output 04/14/20 04/15/20 04/15/20 22:59 06:59 14:59 Intake Total 1070 / 1725 655 / 1725 Balance 1070 / 1725 655 / 1725 Intake: IV 1070 / 1625 555 / 1625 Nss 1000ML 1,000 ml @ 999 mls/ 1000 / 1000 hr IV .Q1H1M [facility] Rx#:[id number] Vancomycin HCl 2,750 mg In Nss 555 / 555 500 ml @ 200 mls/hr IV TODAY@ 2130 [facility] Rx#:[id number] ROCEPHIN 2,000 mg In 70 ml @ 70 / 70 140 mls/hr IV NOW [facility] Rx#: [id number] Oral 100 / 100 Other: Weight 119 kg 119 kg Weight Measurement Method Chair Scale Patient Weight 04/16/20 06:59 Weight 119 kg (1) Osteomyelitis Laterality: left Osteomyelitis location: hand Osteomyelitis type: unspecified type Qualified Code(s): M86.9 - Osteomyelitis, unspecified (2) Cellulitis Laterality: left Site of cellulitis: extremity Site of cellulitis of extremity: upper extremity Qualified Code(s): L03.114 - Cellulitis of left upper limb
[2020-04-15] MEDS: PIPERACILLIN/TAZOBACTAM 4.5 GM in DEXTROSE 5% 100 ML IV SCH ×2 (13:55→22:03)
[2020-04-15] MEDS ORDERED: hydrALAZINE HCL 20 MG/ML VIAL IV PRN (14:14)
[2020-04-15] MEDS ORDERED: cefTRIAXone SODIUM 2,000 MG in DEXTROSE 5% 50 ML IV SCH (18:00)
[2020-04-15] MEDS ORDERED: INSULIN ASPART 100 UNITS/ML 3 ML PEN SC SCH (21:00)
[2020-04-15] MEDS: ATORVASTATIN 40 MG TAB PO SCH (21:59)
[2020-04-15] MEDS: TAMSULOSIN HCL 0.4 MG CAP PO SCH (21:59)
[2020-04-15] MEDS ORDERED: VANCOMYCIN HCL 1,750 MG in SODIUM CHLORIDE 0.9% 500 ML IV SCH (22:00)
[2020-04-16] MEDS: GABAPENTIN 600 MG TAB PO SCH ×3 (05:57→23:28)
[2020-04-16] MEDS: HEPARIN SOD 5,000 UNIT/0.5 ML VIAL SQ SCH ×3 (05:57→21:01)
[2020-04-16] MEDS: LEVOTHYROXINE SODIUM 125 MCG TABLET PO SCH (05:57)
[2020-04-16] MEDS: PIPERACILLIN/TAZOBACTAM 4.5 GM in DEXTROSE 5% 100 ML IV SCH ×3 (05:58→21:40)
--- NOTE | 2020-04-16 08:17 | Magnetic Resonance Report ---
MR hand LT wo con HISTORY: 64 years-old Male r/o osteo patient presents with acute left-sided hand pain with soft tiss ue swelling and possible distal fifth finger osteomyelitis. COMPARISON: CT left hand 04/14/2020 TECHNIQUE: Multiplanar multisequence MRI of the left hand was obtained without the use of IV contrast . FINDINGS: Artifact from the 3 mm metallic density foreign body involving the dorsal soft tissues adjacent to th e second metacarpal phalangeal joint results in adjacent artifact. The study is motion degraded as we ll. There is extensive diffuse subcutaneous, deep tissue and intramuscular edema throughout the hand. 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 No definitive tendon tear identified. Fluid within the carpal tunn el is likely reactive. Bony erosion within the fifth distal phalangeal tuft with marrow edema throughout the entirety of the fifth distal phalanx redemonstrated. Soft tissue irregularity of the fifth distal fingers also prese nt. Bony erosion with increased T2/STIR and decreased T1 signal is noted throughout the first distal phalanx with bony erosion of the distal phalangeal tuft. Moderate degeneration of the first metacarpa l phalangeal joint. No drainable fluid collection. IMPRESSION: 1. Motion degraded exam. 2. Bone marrow edema with osseous erosion involving the first and fifth distal phalanges redemonstrat ed suggestive of osteomyelitis with no evidence of bony erosion through the DIP joints. 3. Diffuse subcutaneous, deep tissue and intramuscular edema is suggestive of cellulitis/myositis. In tramuscular edema may be also secondary to denervation changes. 4. No drainable fluid collection. ACT 112: Negative or not required by law. The above report was generated using voice recognition software. It may contain grammatical, syntax o r spelling errors. Electronically signed by: Nate Arana M.D. 04/16/2020 8:16 AM
[2020-04-16] MEDS: INSULIN ASPART 100 UNITS/ML 3 ML PEN SC SCH ×4 (08:41→21:12)
[2020-04-16] MEDS: INSULIN GLARGINE SOLOSTAR 100 UNITS/ML 3 ML PEN SC SCH (08:41)
[2020-04-16] MEDS: ADVANCED PROBIOTIC 1250 MG CAPSULE PO SCH (08:42)
[2020-04-16] MEDS: LOSARTAN POTASSIUM 50 MG TAB PO SCH ×2 (08:42→21:03)
[2020-04-16] MEDS: VENLAFAXINE HCL XR 75 MG CAPXR PO SCH (08:42)
[2020-04-16] MEDS: METOPROLOL SUCC 25MG EXT REL TAB PO SCH (08:42)
[2020-04-16] MEDS: ASPIRIN 81 MG ECTAB PO SCH (08:42)
[2020-04-16] MEDS: CETIRIZINE HCL 10 MG TABLET PO SCH (08:42)
[2020-04-16] MEDS: FUROSEMIDE 40 MG TAB PO SCH (08:43)
[2020-04-16] MEDS: FINASTERIDE 5 MG TAB PO SCH (08:43)
[2020-04-16] MEDS: POTASSIUM CHLORIDE CRTAB 20 MEQ TABCR PO SCH (08:43)
[2020-04-16] MEDS: DOCUSATE SODIUM/SENNA 50/8.6MG TAB PO SCH (08:43)
[2020-04-16] MEDS: FLUTICASONE/VILANTEROL 200/25MCG 14 PUFFS/INHALER INH SCH (08:43)
[2020-04-16] MEDS: CEROVITE ADV FORMULA TAB PO SCH (08:43)
[2020-04-16] MEDS: PANTOprazole 40 MG TAB PO SCH (08:43)
[2020-04-16] MEDS: CLOPIDOGREL BISULFATE 75 MG TAB PO SCH (08:43)
[2020-04-16] MEDS ORDERED: INSULIN GLARGINE SOLOSTAR 100 UNITS/ML 3 ML PEN SC SCH (09:00)
[2020-04-16] MEDS ORDERED: VANCOMYCIN TROUGH ONE (09:30)
[2020-04-16] MEDS: VANCOMYCIN HCL 1,750 MG in SODIUM CHLORIDE 0.9% 500 ML IV SCH ×2 (10:04→21:00)
--- NOTE | 2020-04-16 10:36 | Pharmacy Report ---
Glycemic Control Progress Note - Date of Service April 16, 2020 - Scope Glycemic Pharmacist consulted for glycemic control to write orders per [facility] inpatient glycemic control protocol. - Objective Accuchecks BSG(last 24 hours):: 04/15/20 04/15/20 04/15/20 11:46 16:57 20:48 POC Glucose 211 H 188 H 163 H 04/16/20 07:21 POC Glucose 92 HbA1c:: Hemoglobin A1c 9.3 % (4.5-5.6) H 04/15/20 02:29 - Recent Pertinent Medications The patient is currently receiving: * Basal insulin: Lantus 70 units every 24 hours * Correctional Insulin: Novolog Correction per scale ACHS Goal Range: Low 110 mg/dL - High 140 mg/dL Correction Factor: 15 mg/dL/unit * Prandial insulin: Per carb ratio of 1 unit per 4 grams CHO consumed - Outpatient Anti-Diabetic Meds Lantus 100 units qAM Novolog 15 units in morning and 25 units in PM (see Nicolasa Forde's note for updated values) - Assessment & Plan ASSESSMENT: * See progress note from 04/15/20 for more background info, in short: * Pt receiving SQ basal bolus insulin regimen for hyperglycemia secondary to baseline DM (outpatient regimen on hold),stress/infection (finger cellulitis on Zosyn and vancomycin). * Patient is currently receiving an average of 115 units of insulin per day * 70 units of basal insulin * 45 units of prandial/correctional insulin * BSGs ranging 81 - 211 mg/dl over the past 24hrs * Changes needed to insulin regimen: * AM Fasting BSG = 92 mg/dl. This is in goal range for patient based on inpatient targets and co-morbidities. The patient received 70 units of basal yesterday. Fasting has improved from 81 mg/dL yesterday to 92 mg/dL today. Will reduce by 10% to 60 units daily. * Post-prandial BSGs are in range therefore no changes needed to CF/CR. * Total daily dose = ~100 units. Regimen will be slightly basal heavy at this point but more balanced with reduced basal dose. PLAN FOR INPATIENT GLYCEMIC CONTROL: * DECREASING Lantus to 60 units SQ qAM * Continuing correction factor of 15 mg/dl/unit * Continuing carb ratio of 1 unit per 4 grams CHO consumed * Continuing goal range of Low 110 mg/dL - High 140 mg/dL * Please note that the plan above was derived based on current level of insulin resistance and hospital stress. These recommendations are appropriate for inpatient admission only. Plan of care upon discharge will need to be reassessed to avoid potential outpatient hypo/hyperglycemia. Thank you.
[2020-04-16] MEDS: ACETAMINOPHEN 325 MG TAB PO PRN (21:00)
[2020-04-16] MEDS: TAMSULOSIN HCL 0.4 MG CAP PO SCH (21:03)
[2020-04-16] MEDS: ATORVASTATIN 40 MG TAB PO SCH (21:03)
--- NOTE | 2020-04-16 21:23 | Hospitalist Progress Note ---
Date of Service April 16, 2020 Assessment & Plan (1) Osteomyelitis: (2) Cellulitis: (3) Lactic acidosis: Cellulitis of the left hand and upper arm Osteomyelitis of the first and fifth distal phalanges, left hand Possible bacteremia CT scan of the hand: 1. Bony erosion of the distal tuft of the distal phalanx of the left fifth finger highly suggestive of acute osteomyelitis. 2. Erosion and irregularity of the distal tuft of the distal phalanx of the left thumb. This could reflect osteomyelitis or nondisplaced fracture. An MRI of the left hand could be obtained for further evaluation. 3. Extensive left hand soft tissue swelling, including multiple fingers. This suggests cellulitis. No fluid collection is suggest abscess. No soft tissue gas. MRI of the hand: 1. Motion degraded exam. 2. Bone marrow edema with osseous erosion involving the first and fifth distal phalanges redemonstrated suggestive of osteomyelitis with no evidence of bony erosion through the DIP joints. 3. Diffuse subcutaneous, deep tissue and intramuscular edema is suggestive of cellulitis/myositis. Intramuscular edema may be also secondary to denervation changes. 4. No drainable fluid collection. -- blood cultures 04/14/2020: Gram-positive cocci clusters 1 out of 2 bottles Repeat blood cultures 04/16/2020: Pending wound culture 04/14/2020: Staph species --Swelling and erythema of the hand improving continue Vanco and Zosyn --Awaiting Ortho decision regarding possible amputation (4) Acute hyperglycemia: (5) Type 1 diabetes: Patient with uncontrolled Type 1 DM likely contributing to his severe infection. a1c 9.3 Pharmacy Glycemic Consult continue Lantus and Insulin Sliding Scale (6) COPD (chronic obstructive pulmonary disease): (7) CHANTELL (obstructive sleep apnea): respiratory status stable Continue CPAP while inpatient. continue Breo, PRN inhaler (8) HTN (hypertension): Continue home BP medications (9) CHF (congestive heart failure): euvolemic Continue Lasix. (10) Hyponatremia: Na 132 --> 135 (11) DVT prophylaxis: -Subcutaneous every 8 hours Disposition lives at home PT/OT evaluation Anticipate discharge to home when medically stable Admission and Anticipated Discharge Date Admission Date: April 14, 2020 Subjective Follow-up for cellulitis of the left hand and upper arm, osteomyelitis of the first and fifth digits of the left hand Seen resting in bed, comfortable, no distress, in good spirits States left hand pain, swelling, redness improving Able to move hand and fingers much better No chest pain, shortness of breath, palpitations, dizziness No other symptoms Review of Systems Review of Systems: All systems reviewed & are unremarkable except as noted in Subjective Physical Exam Physical Exam: General- oriented x 3, not in distress, speaks in sentences with no effort or accessory muscle use Eyes- anicteric Neck- no JVD Lungs- clear breath sounds bilaterally, no rales/wheezes Heart- normal rate, regular rhythm; no murmurs Abdomen- normal bowel sounds, nondistended, soft, nontender Extremities- no pretibial edema, no calf tenderness Left hand: Positive significant edema but improving, mild erythema, no tenderness or warmth Eschar on the distal aspect of the first and fifth digits, no bleeding or discharge Left upper arm: Edema and erythema also improving Right hand: Status post amputation of the index finger Neuro- alert, oriented x 3; no gross focal neurologic deficits Skin- warm & dry Results & Data Results & Data ([facility]) Vital Signs (Past 12 Hours) Vital Signs Temp Pulse Pulse Resp BP Pulse Ox 04/16/20 19:00 36.6 C 78 18 131/75 98 04/16/20 15:26 82 04/16/20 15:00 37.3 C 78 20 130/74 100 04/16/20 11:31 36.7 C 84 19 163/88 H 95 04/16/20 09:52 62 Laboratory Results Laboratory Results - last 24 hr 04/16/20 04/16/20 04/16/20 07:21 11:18 11:20 POC Glucose 92 319 H* 292 H 04/16/20 04/16/20 16:15 20:25 POC Glucose 171 H 100 H (1) Osteomyelitis Laterality: left Osteomyelitis location: hand Osteomyelitis type: unspecified type Qualified Code(s): M86.9 - Osteomyelitis, unspecified (2) Cellulitis Laterality: left Site of cellulitis: extremity Site of cellulitis of extremity: upper extremity Qualified Code(s): L03.114 - Cellulitis of left upper limb
[2020-04-17] MEDS: HEPARIN SOD 5,000 UNIT/0.5 ML VIAL SQ SCH ×3 (06:09→21:09)
[2020-04-17] MEDS: LEVOTHYROXINE SODIUM 125 MCG TABLET PO SCH (06:09)
[2020-04-17] MEDS: PIPERACILLIN/TAZOBACTAM 4.5 GM in DEXTROSE 5% 100 ML IV SCH ×3 (06:10→21:08)
[2020-04-17] MEDS: INSULIN ASPART 100 UNITS/ML 3 ML PEN SC SCH ×6 (07:59→21:13)
[2020-04-17] MEDS: CEROVITE ADV FORMULA TAB PO SCH (08:00)
[2020-04-17] MEDS: FLUTICASONE/VILANTEROL 200/25MCG 14 PUFFS/INHALER INH SCH (08:00)
[2020-04-17] MEDS: POTASSIUM CHLORIDE CRTAB 20 MEQ TABCR PO SCH (08:00)
[2020-04-17] MEDS: CLOPIDOGREL BISULFATE 75 MG TAB PO SCH (08:01)
[2020-04-17] MEDS: ASPIRIN 81 MG ECTAB PO SCH (08:01)
[2020-04-17] MEDS: VENLAFAXINE HCL XR 75 MG CAPXR PO SCH (08:01)
[2020-04-17] MEDS: CETIRIZINE HCL 10 MG TABLET PO SCH (08:01)
[2020-04-17] MEDS: ADVANCED PROBIOTIC 1250 MG CAPSULE PO SCH (08:01)
[2020-04-17] MEDS: DOCUSATE SODIUM/SENNA 50/8.6MG TAB PO SCH (08:01)
[2020-04-17] MEDS: LOSARTAN POTASSIUM 50 MG TAB PO SCH (08:01)
[2020-04-17] MEDS: FUROSEMIDE 40 MG TAB PO SCH (08:01)
[2020-04-17] MEDS: METOPROLOL SUCC 25MG EXT REL TAB PO SCH (08:02)
[2020-04-17] MEDS: FINASTERIDE 5 MG TAB PO SCH (08:02)
[2020-04-17] MEDS: PANTOprazole 40 MG TAB PO SCH (08:02)
[2020-04-17] MEDS: INSULIN GLARGINE SOLOSTAR 100 UNITS/ML 3 ML PEN SC SCH (08:02)
[2020-04-17] MEDS ORDERED: VANCOMYCIN TROUGH ONE (09:30)
[2020-04-17 10:00] LABS: Hemoglobin 10.9 g/dL (14.0-18.0); Mean Corpuscular Hgb Conc 31.1 g/dL (32-36); Mean Corpuscular Volume 96.4 fL (80-100); Mean Platelet Volume 10.4 fL (7.4-10.4); Platelet Count 325 K/uL (130-400); Red Blood Count 3.63 M/uL (4.7-6.1); White Blood Count 11.54 K/uL (4.8-10.8)
[2020-04-17] MEDS: VANCOMYCIN HCL 1,750 MG in SODIUM CHLORIDE 0.9% 500 ML IV SCH (10:08)
[2020-04-17 10:30] LABS: Creatinine Clr Calc Pharmacy 73.6 ml/min; Est GFR (African American) 63.1; Est GFR (Non-African American) 54.4
--- NOTE | 2020-04-17 10:54 | Pharmacy Report ---
Glycemic Control Progress Note - Date of Service April 17, 2020 - Scope Glycemic Pharmacist consulted for glycemic control to write orders per [facility] inpatient glycemic control protocol. - Objective Accuchecks BSG(last 24 hours):: 04/16/20 04/16/20 04/16/20 11:18 11:20 16:15 POC Glucose 319 H* 292 H 171 H 04/16/20 04/17/20 20:25 07:52 POC Glucose 100 H 102 H HbA1c:: Hemoglobin A1c 9.3 % (4.5-5.6) H 04/15/20 02:29 - Recent Pertinent Medications The patient is currently receiving: * Basal insulin: Lantus 60 units every 24 hours * Correctional Insulin: Novolog Correction per scale ACHS Goal Range: Low 110 mg/dL - High 140 mg/dL Correction Factor: 15 mg/dL/unit * Prandial insulin: Per carb ratio of 1 unit per 4 grams CHO consumed - Outpatient Anti-Diabetic Meds Lantus 100 units in the morning Novolog - Assessment & Plan ASSESSMENT: * See progress note from 04/15/2020 for more background info, in short: * Pt receiving SQ basal bolus insulin regimen for hyperglycemia secondary to baseline DM (outpatient regimen on hold). Patient receiving vancomycin and Zosyn for osteomyelitis. * Patient is currently receiving an average of 121 units of insulin per day * 60 units of basal insulin * 61 units of prandial/correctional insulin * BSGs ranging 92 - 292 mg/dl over the past 24hrs * Changes needed to insulin regimen: * AM Fasting BSG = 102 mg/dl. This is in goal range for patient based on inpatient targets and co-morbidities. Continue basal insulin. * Post-prandial BSGs were controlled except for lunch BSG. This BSG has been elevated x 2 days. Will attempt to fix by changing carbohydrate ratio at breakfast only. Also decreased lower end of goal range to allow for less carbohydrate substraction. * Total daily dose = ~130 units. PLAN FOR INPATIENT GLYCEMIC CONTROL: * Continuing Lantus 60 units SQ daily * Continuing correction factor of 15 mg/dl/unit * Changing carb ratio to 1 unit per 3 grams CHO consumed with breakfast and 1 unit per 4 grams CHO consumed for all other meals. * Continuing goal range of Low 80 mg/dL - High 140 mg/dL RECOMMENDATIONS FOR DISCHARGE: * Recommend splitting Lantus to 50 units SQ BID to ensure 24 hour coverage. * Recommend close follow-up with [facility] to ensure patient is able to split insulin more 50/50 with basal bolus. * Consider restart metformin for increased insulin sensitivity. Thank you.
--- NOTE | 2020-04-17 10:59 | Pharmacy Report ---
Pharmacy Abx Dose Short Note - Date of Service April 17, 2020 - Assessment & Plan Assessment 64 year old M receiving vancomycin/Zosyn for treatment of osteomyelitis Day # 4 of antimicrobial therapy. Plan Vancomycin * Trough level of 20.7 mcg/mL is therapeutic. * Change to 1750 mg IV every 14 hours (patient's body habitus will lean towards accumulation but after 5 doses that should almost be complete. Concern with slight bump in kidney function today ... although close to admission Scr. Serum creatinine ordered for tomorrow. Feel more comfortable shooting for a slightly lower trough thus will push vancomycin dosing out) * Goal trough level for osteomyelitis : 15 to 20 mcg/mL * Trough or random level ordered for: []/[]/[] Pharmacy will continue to follow and will adjust dose/frequency as necessary. Thank you.
[2020-04-17] MEDS: GABAPENTIN 600 MG TAB PO SCH (12:14)
--- NOTE | 2020-04-17 12:38 | Hospitalist Progress Note ---
Date of Service April 17, 2020 Assessment & Plan (1) Osteomyelitis: (2) Cellulitis: (3) Lactic acidosis: Cellulitis of the left hand and upper arm Osteomyelitis of the first and fifth distal phalanges, left hand Possible bacteremia CT scan of the hand: 1. Bony erosion of the distal tuft of the distal phalanx of the left fifth finger highly suggestive of acute osteomyelitis. 2. Erosion and irregularity of the distal tuft of the distal phalanx of the left thumb. This could reflect osteomyelitis or nondisplaced fracture. An MRI of the left hand could be obtained for further evaluation. 3. Extensive left hand soft tissue swelling, including multiple fingers. This suggests cellulitis. No fluid collection is suggest abscess. No soft tissue gas. MRI of the hand: 1. Motion degraded exam. 2. Bone marrow edema with osseous erosion involving the first and fifth distal phalanges redemonstrated suggestive of osteomyelitis with no evidence of bony erosion through the DIP joints. 3. Diffuse subcutaneous, deep tissue and intramuscular edema is suggestive of cellulitis/myositis. Intramuscular edema may be also secondary to denervation changes. 4. No drainable fluid collection. -- blood cultures 04/14/2020: Gram-positive cocci clusters 1 out of 2 bottles Repeat blood cultures 04/16/2020: Pending wound culture 04/14/2020: Staph species --Swelling and erythema of the hand improving continue Vanco and Zosyn --Awaiting Ortho decision regarding possible amputation (4) Acute hyperglycemia: (5) Type 1 diabetes: Patient with uncontrolled Type 1 DM likely contributing to his severe infection. a1c 9.3 Pharmacy Glycemic Consult continue Lantus and Insulin Sliding Scale (6) COPD (chronic obstructive pulmonary disease): (7) CHANTELL (obstructive sleep apnea): respiratory status stable Continue CPAP while inpatient. continue Breo, PRN inhaler (8) HTN (hypertension): Continue home BP medications (9) CHF (congestive heart failure): euvolemic Continue Lasix. (10) Hyponatremia: Na 132 --> 135 (11) DVT prophylaxis: -Subcutaneous every 8 hours Disposition lives at home PT/OT Anticipate discharge to home when medically stable ROS-No Headache, No Visual Changes, No Nausea, No Vomiting, No Fever, No Chills, No Neck Pain or Stiffness, No Chest Pain, No Palpitations, No SOB, No BOGGS, No Cough, No Sputum, No Wheezing, No Abdominal Pain, No Diarrhea, No Hematemesis, No Hemoptysis, No Unexpected Weight Loss, No Flank pain, No Melena, No Hematochezia, No Frequency, No Urgency, No Burning, No Hematuria, No Rashes, No Diaphoresis. Appetite is Normal Physical Exam Gen-AAO x 3, NAD, Afebrile Head-NCAT, EOMI, PERRLA, Anicteric Sclera, No Posterior Pharyngeal Erythema Neck-Supple, No JVD, No Thyromegaly, No Masses, No LAD, No Bruits Lungs-Clear to Auscultation Bilaterally, No Rales, No Rhonchi, No Wheezing, No Crepitus Chest-No S4, +S1, +S2, No S3, No Murmurs, No Rubs, No Gallops, No Ectopy Abdomen-Soft, Bowel Sounds Present, Non Tender, Non Distended, No Hepatomegaly, No Splenomegaly, No Palpable Masses, No Rebound, No Rigidity, No Guarding Musculoskeletal-Full Range of Motion Bilaterally, No CVAT Extremities-Left hand with erythema and edema. Unable to make a fist. Left 5th finger with black eschar at the tip of finger. Left thumb with ulceration. No drainage. Erythema streaking up the left forearm into the upper arm. Nuero-Cranial Nerves II-XII grossly intact, Motor WNL, DTRs WNL, Strength WNL, Non Focal Psych-Normal Mood Admission and Anticipated Discharge Date Admission Date: April 14, 2020 Results & Data Results & Data ([facility]) Vital Signs (Past 12 Hours) Vital Signs Temp Pulse Pulse Resp BP BP Pulse Ox 04/17/20 11:18 36.5 C 68 18 168/98 H 95 04/17/20 10:40 36.4 C L 60 18 156/88 H 100 04/17/20 08:00 62 04/17/20 05:47 69 04/17/20 04:00 35.8 C L 62 20 124/83 99 04/17/20 02:20 70 18 92 (1) Osteomyelitis Laterality: left Osteomyelitis location: hand Osteomyelitis type: unspecified type Qualified Code(s): M86.9 - Osteomyelitis, unspecified (2) Cellulitis Laterality: left Site of cellulitis: extremity Site of cellulitis of extremity: upper extremity Qualified Code(s): L03.114 - Cellulitis of left upper limb
--- NOTE | 2020-04-17 13:33 | Orthopedic Progress Note ---
Date of Service April 17, 2020 Assessment & Plan (1) Cellulitis of hand: I discussed the case with Dr. Marshall. Plans for PICC line and home IV antibiotics with home health services. I discussed the case also with from our office. MRI results discussed. Patient will likely need a saucerization procedure on the fifth finger that can be done as an outpatient. If PICC line and home IVs can be arranged by early tomorrow, plan to have the patient see Dr. Rico in the of [facility] after discharge. If the patient is unable to arrange to be seen tomorrow in the office, we can plan to have him see Jess Tsang PA-C on Wednesday. Admission and Anticipated Discharge Date Admission Date: April 14, 2020 Subjective Patient sitting up on the bedside reading paper. States that his left hand is feeling better and looks better than it did earlier. No new complaints. Physical Exam Physical Exam: Left hand with moderate swelling but it appears that the swelling has gone down. Continues with some dusky erythema around the fifth finger that travels across the dorsum of the hand. Dry gangrene noted of the fifth finger tip with no odor. His thumb appears better than previously noted wound care. No major erythema and no drainage. Couple small areas of eschar. Sensation markedly decreased secondary to peripheral neuropathy from diabetes. Results & Data ([facility]) Vital Signs (Past 12 Hours) Vital Signs Temp Pulse Pulse Resp BP BP Pulse Ox 04/17/20 11:18 36.5 C 68 18 168/98 H 95 04/17/20 10:40 36.4 C L 60 18 156/88 H 100 04/17/20 08:00 62 04/17/20 05:47 69 04/17/20 04:00 35.8 C L 62 20 124/83 99 04/17/20 02:20 70 18 92 Diagnostic Findings Patient: ANNMARIE HATFIELD Date: 04/14/20MR#: [id number]: [id number] JEN RAZO RDAcct ID:[id number]: Date: [address] Zip: [place] [id number]: 64Location: 2WSex: MRoom/Bed: [id number] Phy: Travon Cruz, MDDiagnosis: OSTEOMYELITISPri Phy: Farzad Hatfield, DOService Date: 04/15/20Fam Phy:Interpreting Phy: Neo AranaAdmit Phy: Manny Rodríguez M.D. Ordering Phy: Mitch Ramsey D.O. cc: ~ MR hand LT wo con HISTORY: 64 years-old Male r/o osteo patient presents with acute left-sided hand pain with soft tissue swelling and possible distal fifth finger osteomyelitis. COMPARISON: CT left hand 04/14/2020 TECHNIQUE: Multiplanar multisequence MRI of the left hand was obtained without the use of IV contrast. FINDINGS: Artifact from the 3 mm metallic density foreign body involving the dorsal soft tissues adjacent to the second metacarpal phalangeal joint results in adjacent artifact. The study is motion degraded as well. There is extensive diffuse subcutaneous, deep tissue and intramuscular edema throughout the hand. 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 No definitive tendon tear identified. Fluid within the carpal tunnel is likely reactive. Bony erosion within the fifth distal phalangeal tuft with marrow edema throughout the entirety of the fifth distal phalanx redemonstrated. Soft tissue irregularity of the fifth distal fingers also present. Bony erosion with increased T2/STIR and decreased T1 signal is noted throughout the first distal phalanx with bony erosion of the distal phalangeal tuft. Moderate degeneration of the first metacarpal phalangeal joint. No drainable fluid collection. IMPRESSION: 1. Motion degraded exam. 2. Bone marrow edema with osseous erosion involving the first and fifth distal phalanges redemonstrated suggestive of osteomyelitis with no evidence of bony erosion through the DIP joints. 3. Diffuse subcutaneous, deep tissue and intramuscular edema is suggestive of cellulitis/myositis. Intramuscular edema may be also secondary to denervation changes. 4. No drainable fluid collection.
[2020-04-17] MEDS ORDERED: METOPROLOL SUCC 50MG EXT REL TAB PO ONE (15:30)
[2020-04-17] MEDS ORDERED: DAPTOmycin 575 MG in SYRINGE 0 ML IV SCH (16:00)
[2020-04-17] MEDS: ISOSORBIDE MONO EXTENDED REL 30 MG TABCR PO SCH (16:07)
[2020-04-17] MEDS: ATORVASTATIN 40 MG TAB PO SCH (21:09)
[2020-04-17] MEDS: TAMSULOSIN HCL 0.4 MG CAP PO SCH (21:10)
[2020-04-17] MEDS: ACETAMINOPHEN 325 MG TAB PO PRN (21:13)
[2020-04-18] MEDS ORDERED: VANCOMYCIN HCL 1,750 MG in SODIUM CHLORIDE 0.9% 500 ML IV SCH
[2020-04-18] MEDS: PIPERACILLIN/TAZOBACTAM 4.5 GM in DEXTROSE 5% 100 ML IV SCH (06:11)
[2020-04-18] MEDS: HEPARIN SOD 5,000 UNIT/0.5 ML VIAL SQ SCH ×3 (06:12→22:24)
[2020-04-18] MEDS: LEVOTHYROXINE SODIUM 125 MCG TABLET PO SCH (06:12)
[2020-04-18] MEDS: ASPIRIN 81 MG ECTAB PO SCH (07:52)
[2020-04-18] MEDS: VENLAFAXINE HCL XR 75 MG CAPXR PO SCH (07:52)
[2020-04-18] MEDS: POTASSIUM CHLORIDE CRTAB 20 MEQ TABCR PO SCH (07:52)
[2020-04-18] MEDS: FUROSEMIDE 40 MG TAB PO SCH (07:53)
[2020-04-18] MEDS: CLOPIDOGREL BISULFATE 75 MG TAB PO SCH (07:53)
[2020-04-18] MEDS: FINASTERIDE 5 MG TAB PO SCH (07:54)
[2020-04-18] MEDS: ADVANCED PROBIOTIC 1250 MG CAPSULE PO SCH (07:54)
[2020-04-18] MEDS: PANTOprazole 40 MG TAB PO SCH (07:55)
[2020-04-18] MEDS: DOCUSATE SODIUM/SENNA 50/8.6MG TAB PO SCH (07:55)
[2020-04-18] MEDS: CETIRIZINE HCL 10 MG TABLET PO SCH (07:56)
[2020-04-18] MEDS: FLUTICASONE/VILANTEROL 200/25MCG 14 PUFFS/INHALER INH SCH (07:59)
[2020-04-18 08:26] LABS: Creatinine Clr Calc Pharmacy 81.3 ml/min; Est GFR (African American) 71.1; Est GFR (Non-African American) 61.3
[2020-04-18] MEDS: INSULIN GLARGINE SOLOSTAR 100 UNITS/ML 3 ML PEN SC SCH (09:01)
[2020-04-18] MEDS: INSULIN ASPART 100 UNITS/ML 3 ML PEN SC SCH ×5 (09:02→22:25)
[2020-04-18] MEDS: ISOSORBIDE MONO EXTENDED REL 30 MG TABCR PO SCH (09:34)
[2020-04-18] MEDS: CEROVITE ADV FORMULA TAB PO SCH (09:34)
[2020-04-18] MEDS: METOPROLOL SUCC 50MG EXT REL TAB PO SCH ×2 (09:34→22:23)
--- NOTE | 2020-04-18 09:41 | Hospitalist Progress Note ---
Date of Service April 18, 2020 Assessment & Plan (1) Osteomyelitis: (2) Cellulitis: (3) Lactic acidosis: Cellulitis of the left hand and upper arm Osteomyelitis of the first and fifth distal phalanges, left hand Possible bacteremia CT scan of the hand: 1. Bony erosion of the distal tuft of the distal phalanx of the left fifth finger highly suggestive of acute osteomyelitis. 2. Erosion and irregularity of the distal tuft of the distal phalanx of the left thumb. This could reflect osteomyelitis or nondisplaced fracture. An MRI of the left hand could be obtained for further evaluation. 3. Extensive left hand soft tissue swelling, including multiple fingers. This suggests cellulitis. No fluid collection is suggest abscess. No soft tissue gas. MRI of the hand: 1. Motion degraded exam. 2. Bone marrow edema with osseous erosion involving the first and fifth distal phalanges redemonstrated suggestive of osteomyelitis with no evidence of bony erosion through the DIP joints. 3. Diffuse subcutaneous, deep tissue and intramuscular edema is suggestive of cellulitis/myositis. Intramuscular edema may be also secondary to denervation changes. 4. No drainable fluid collection. -- blood cultures 04/14/2020: Gram-positive cocci clusters 1 out of 2 bottles Repeat blood cultures 04/16/2020: Pending wound culture 04/14/2020: Staph species --Swelling and erythema of the hand improving On Dapto and Zosyn, ID consult pending, F/U Ortho in the office (4) Acute hyperglycemia: (5) Type 1 diabetes: Patient with uncontrolled Type 1 DM likely contributing to his severe infection. a1c 9.3 Pharmacy Glycemic Consult continue Lantus and Insulin Sliding Scale (6) COPD (chronic obstructive pulmonary disease): (7) CHANTELL (obstructive sleep apnea): respiratory status stable Continue CPAP while inpatient. continue Breo, PRN inhaler (8) HTN (hypertension): Continue home BP medications (9) CHF (congestive heart failure): euvolemic Continue Lasix. (10) Hyponatremia: Na 132 --> 135 (11) DVT prophylaxis: -Subcutaneous every 8 hours Disposition lives at home PT/OT Anticipate discharge to home on IV Abx in 1-2 days ROS-No Headache, No Visual Changes, No Nausea, No Vomiting, No Fever, No Chills, No Neck Pain or Stiffness, No Chest Pain, No Palpitations, No SOB, No BOGGS, No Cough, No Sputum, No Wheezing, No Abdominal Pain, No Diarrhea, No Hematemesis, No Hemoptysis, No Unexpected Weight Loss, No Flank pain, No Melena, No Hematochezia, No Frequency, No Urgency, No Burning, No Hematuria, No Rashes, No Diaphoresis. Appetite is Normal Physical Exam Gen-AAO x 3, NAD, Afebrile Head-NCAT, EOMI, PERRLA, Anicteric Sclera, No Posterior Pharyngeal Erythema Neck-Supple, No JVD, No Thyromegaly, No Masses, No LAD, No Bruits Lungs-Clear to Auscultation Bilaterally, No Rales, No Rhonchi, No Wheezing, No Crepitus Chest-No S4, +S1, +S2, No S3, No Murmurs, No Rubs, No Gallops, No Ectopy Abdomen-Soft, Bowel Sounds Present, Non Tender, Non Distended, No Hepatomegaly, No Splenomegaly, No Palpable Masses, No Rebound, No Rigidity, No Guarding Musculoskeletal-Full Range of Motion Bilaterally, No CVAT Extremities-Left hand with erythema and edema. Unable to make a fist. Left 5th finger with black eschar at the tip of finger. Left thumb with ulceration. No drainage. Less erythema streaking up the left arm. Nuero-Cranial Nerves II-XII grossly intact, Motor WNL, DTRs WNL, Strength WNL, Non Focal Psych-Normal Mood Admission and Anticipated Discharge Date Admission Date: April 14, 2020 Results & Data Results & Data ([facility]) Vital Signs (Past 12 Hours) Vital Signs Temp Pulse Pulse Resp BP Pulse Ox 04/18/20 07:59 36.9 C 69 18 135/70 94 04/18/20 03:53 36.7 C 63 18 158/75 H 98 04/18/20 02:08 65 16 93 04/17/20 23:19 36.7 C 59 L 18 167/70 H 99 04/17/20 22:32 69 18 94 04/17/20 22:20 68 (1) Osteomyelitis Laterality: left Osteomyelitis location: hand Osteomyelitis type: unspec ified type Qualified Code(s): M86.9 - Osteomyelitis, unspecified (2) Cellulitis Laterality: left Site of cellulitis: extremity Site of cellulitis of extremity: upper extremity Qualified Code(s): L03.114 - Cellulitis of left upper limb
[2020-04-18] MEDS ORDERED: GABAPENTIN 600 MG TAB PO SCH (12:00)
--- NOTE | 2020-04-18 12:36 | Pharmacy Report ---
Pharmacy Glycemic Short Note 2 - Date of Service April 18, 2020 - Glycemic Short BSG Results (Last 24 hours): OUTPATIENT ANTIDIABETIC REGIMEN: * Lantus 100 units SC qAM + Novolog 15 units SC qAM & 25 units SC qPM & SSI * A1c = 9.3% (04/15/2020) ASSESSMENT: 04/18: * Damon received 118 units of insulin yesterday * 60 units basal + 58 units bolus * BSGs were [id number] mg/dL - mostly uncontrolled * Fasting BSG this AM was controlled at 97 mg/dL * Fasting BSGs have been well controlled every day * Continue current basal dose * BSGs are trending upwards throughout the day indicating need for tighter correctional/prandial insulin parameters * Tightened CF/CR this AM. Lunchtime BSG was again significantly elevated at 289 mg/dL. * If this trend continues tonight, will tighten again with dinner PLAN FOR INPATIENT GLYCEMIC CONTROL: * Basal insulin - no change * Lantus 60 units SQ qAM * Bolus insulin - tightened CF/CR * NovoLog per scale ACHS or Q6hrs while NPO * Goal Range: Low 80 mg/dL - High 140 mg/dL * Correction Factor: 12 mg/dL/unit * Nutritional / Prandial insulin per carb ratio of 1 unit per 3 grams CHO consumed PLAN FOR DISCHARGE: * to be determined
[2020-04-18] MEDS: ceFAZolin 2000MG 2,000 MG/15 ML SYR IV SCH ×2 (14:28→22:42)
[2020-04-18] MEDS: TAMSULOSIN HCL 0.4 MG CAP PO SCH (22:23)
[2020-04-18] MEDS: ATORVASTATIN 40 MG TAB PO SCH (22:25)
[2020-04-19] MEDS ORDERED: DEXTROSE 50% 50 ML SYRINGE IV STA (00:42)
[2020-04-19] MEDS: ceFAZolin 2000MG 2,000 MG/15 ML SYR IV SCH ×2 (06:00→13:30)
[2020-04-19] MEDS: HEPARIN SOD 5,000 UNIT/0.5 ML VIAL SQ SCH ×2 (06:01→14:10)
[2020-04-19] MEDS: LEVOTHYROXINE SODIUM 125 MCG TABLET PO SCH (06:01)
[2020-04-19] MEDS: INSULIN ASPART 100 UNITS/ML 3 ML PEN SC SCH ×2 (08:15→12:33)
[2020-04-19] MEDS: FLUTICASONE/VILANTEROL 200/25MCG 14 PUFFS/INHALER INH SCH (08:21)
[2020-04-19] MEDS: VENLAFAXINE HCL XR 75 MG CAPXR PO SCH (08:22)
[2020-04-19] MEDS: ISOSORBIDE MONO EXTENDED REL 30 MG TABCR PO SCH (08:22)
[2020-04-19] MEDS: ASPIRIN 81 MG ECTAB PO SCH (08:22)
[2020-04-19] MEDS: FUROSEMIDE 40 MG TAB PO SCH (08:23)
[2020-04-19] MEDS: CLOPIDOGREL BISULFATE 75 MG TAB PO SCH (08:23)
[2020-04-19] MEDS: CEROVITE ADV FORMULA TAB PO SCH (08:23)
[2020-04-19] MEDS: POTASSIUM CHLORIDE CRTAB 20 MEQ TABCR PO SCH (08:23)
[2020-04-19] MEDS: ADVANCED PROBIOTIC 1250 MG CAPSULE PO SCH (08:23)
[2020-04-19] MEDS: CETIRIZINE HCL 10 MG TABLET PO SCH (08:24)
[2020-04-19] MEDS: PANTOprazole 40 MG TAB PO SCH (08:24)
[2020-04-19] MEDS: FINASTERIDE 5 MG TAB PO SCH (08:24)
[2020-04-19] MEDS: METOPROLOL SUCC 50MG EXT REL TAB PO SCH (08:24)
[2020-04-19] MEDS: DOCUSATE SODIUM/SENNA 50/8.6MG TAB PO SCH (08:28)
[2020-04-19 08:51] LABS: Albumin Level 2.5 gm/dl (3.4-5.0); BUN Creatinine Ratio 10.5 (10-20); Calcium 9.3 mg/dl (8.5-10.1); Creatinine Clr Calc Pharmacy 80.9 ml/min; Est GFR (African American) 71.1; Est GFR (Non-African American) 61.3; Potassium 4.2 mmol/L (3.5-5.1)
[2020-04-19 08:54] LABS: Albumin Globulin Ratio 0.4 (0.9-2); Bilirubin,Total 0.2 mg/dl (0.2-1); Globulin 5.7 gm/dl (2.5-4.0); Total Protein 8.2 gm/dl (6.4-8.2)
[2020-04-19] MEDS ORDERED: GABAPENTIN 300 MG CAP PO SCH (09:00)
[2020-04-19] MEDS: INSULIN GLARGINE SOLOSTAR 100 UNITS/ML 3 ML PEN SC SCH (09:09)
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
--- NOTE | 2020-04-19 11:37 | Pharmacy Report ---
Pharmacy Glycemic Short Note 2 - Date of Service April 19, 2020 - Glycemic Short BSG Results (Last 24 hours): 04/18/20 04/18/20 04/18/20 11:39 11:47 16:53 Glucose POC Glucose 289 H 353 H* 132 H 04/18/20 04/19/20 04/19/20 20:41 00:04 00:21 Glucose POC Glucose 116 H 33 L* 43 L* 04/19/20 04/19/20 04/19/20 00:35 00:50 01:15 Glucose POC Glucose 48 L* 66 L* 140 H 04/19/20 04/19/20 07:29 07:52 Glucose 221 H POC Glucose 222 H OUTPATIENT ANTIDIABETIC REGIMEN: * Lantus 100 units SC qAM + Novolog 15 units SC qAM & 25 units SC qPM & SSI * A1c = 9.3% (04/15/2020) ASSESSMENT: 04/19: * Damon received a total of 141 units of insulin yesterday - 20% increase from previous day * 60 units basal + 81 units bolus * BSGs were [phone] mg/dL * Patient had a hypoglycemic event early this AM * He was symptomatic with "weird dreams" and required 30 gm CHO as well as 1/2 amp of D50 to raise his BSG to 140 mg/dL * This was secondary to too tight of correctional/prandial insulin parameters - this was loosened this morning * Fasting BSG was elevated at 222 mg/dL this AM * No change in basal as this is likely response to hypoglycemia 04/18: * Damon received 118 units of insulin yesterday * 60 units basal + 58 units bolus * BSGs were [phone] mg/dL - mostly uncontrolled * Fasting BSG this AM was controlled at 97 mg/dL * Fasting BSGs have been well controlled every day * Continue current basal dose * BSGs are trending upwards throughout the day indicating need for tighter correctional/prandial insulin parameters * Tightened CF/CR this AM. Lunchtime BSG was again significantly elevated at 289 mg/dL. * If this trend continues tonight, will tighten again with dinner PLAN FOR INPATIENT GLYCEMIC CONTROL: * Basal insulin - no change * Lantus 60 units SQ qAM * Bolus insulin - loosened CF/CR * NovoLog per scale ACHS or Q6hrs while NPO * Goal Range: Low 110 mg/dL - High 140 mg/dL * Correction Factor: 15 mg/dL/unit * Nutritional / Prandial insulin per carb ratio of 1 unit per 5 grams CHO consumed PLAN FOR DISCHARGE: * HbA1c = 9.3% from this admission. Given patient's age and comorbidities, a reasonable A1c goal would be < 7.0%. * Recommend splitting Lantus dose to BID - 50 units SQ AM + 50 units SQ PM * Recommend initiating Metformin XR 500 mg PO with evening meal. * Typically the XR formulation is better tolerated than the IR formulation. Dosage increases should be made in increments of 500 mg weekly, up to 2,000 mg/day PO. * Vitamin B12 supplementation may be necessary with continuous churn buttermaker metformin use. * Patient has a follow-up appointment scheduled with [facility].
== END 2020-04-19 14:13 | disposition home health service (06) | DRG 540 ==
LOC: ED 15:52 → SUATTDRO 19:23 → 2W 19:23

== ENCOUNTER 2020-07-12 15:51 | Inpatient (IN) ==
[2020-07-12] MEDS ORDERED: DAPTOmycin 300 MG in SYRINGE 0 ML IV ONE (16:41)
[2020-07-12] MEDS ORDERED: PIPERACILLIN/TAZOBACTAM 4.5 GM/120 ML BAG IV ONE (16:41)
[2020-07-12] MEDS ORDERED: PIPERACILL/TAZOBAC CONSULT ACTIVE PRN (16:41)
--- NOTE | 2020-07-12 16:58 | Emergency Department Note ---
History of Present Illness General Chief complaint: Infection Stated complaint: COVID + ON JUL 04, SEVERE INFECTION ON L HAND/FING Time Seen by Provider: 07/12/20 16:22 History of Present Illness Maximum Pain Intensity: 0 This is a 64-year-old male that presents to the emergency department via private vehicle with complaints "Covid positive on July 04, severe infection on left hand/finger". The patient notes a history of diabetes, neuropathy and subsequent infections to his digits. He notes that this past April he underwent surgical resection of a distal aspect of his left fifth digit. He has been doing well since that time up until that a week and a half ago he began wit h similar wounds mostly involving the left third digit. He states that this has progressed despite being on doxycycline since Wednesday. No known trauma or injury but he does admit that he does pick at these digits. Patient denies any pain noting his neuropathy. No fevers or chills. He notes that the redness and wounds have been present for about a week and a half. Current pain 0/10. Home Medications Medication Instructions Recorded Confirmed Type aspirin 81 mg tablet,delayed 81 mg PO QAM 02/04/18 07/12/20 History release clopidogrel 75 mg tablet 75 mg PO QAM 02/04/18 07/12/20 History finasteride 5 mg tablet 5 mg PO QAM tab 02/04/18 07/12/20 History folic acid 1 mg tablet 1 mg PO QAM tab 02/04/18 07/12/20 History levothyroxine 125 mcg tablet 125 mcg PO QAM 02/04/18 07/12/20 History multivitamin with minerals 1 tab PO QAM tab 02/04/18 07/12/20 History tamsulosin 0.4 mg capsule 0.4 mg PO HS cap 02/04/18 07/12/20 History venlafaxine 75 mg capsule,extended 75 mg PO QAM cap 02/04/18 07/12/20 History release 24 hr albuterol sulfate 2 puff INHALATION Q4H PRN 05/13/18 07/12/20 History losartan 50 mg PO BID 05/13/18 07/12/20 History Lantus Solostar U-100 Insulin 100 unit SUBCUT QAM PRN 04/14/20 07/12/20 History atorvastatin 40 mg PO QAM 04/14/20 07/12/20 History furosemide 40 mg PO QAM 04/14/20 07/12/20 History gabapentin 300 mg PO QAM 04/14/20 07/12/20 History metoprolol succinate 25 mg PO QAM 04/14/20 07/12/20 History omeprazole 20 mg PO QAM 04/14/20 07/12/20 History potassium chloride 40 meq PO QAM 04/14/20 07/12/20 History sennosides-docusate sodium 1 tab-cap PO QAM 04/14/20 07/12/20 History [Senokot-S] amlodipine 5 mg PO DAILY 07/12/20 07/12/20 History doxycycline hyclate 100 mg PO BID 07/12/20 07/12/20 History ibuprofen 600 mg PO Q6H PRN 07/12/20 07/12/20 History insulin aspart U-100 See Rx Instructions .ROUTE .COMPLEX 07/12/20 07/12/20 History Allergies Allergy/AdvReac Type Severity Reaction Status Date / Time DEIDRE Inhibitors AdvReac Unknown Cough Verified 07/12/20 19:04 Past Med/Surg History Medical History Altered mental status Aortic root enlargement BPH (benign prostatic hyperplasia) CAD (coronary artery disease) COPD (chronic obstructive pulmonary disease) Dyslipidemia GERD (gastroesophageal reflux disease) HTN (hypertension) Hyponatremia NSTEMI (non-ST elevated myocardial infarction) NSTEMI (non-ST elevated myocardial infarction) NSTEMI (non-ST elevated myocardial infarction) CHANTELL (obstructive sleep apnea) Type 1 diabetes Surgical History H/O adenoidectomy History of hip replacement History of tonsillectomy Family History (Updated 07/12/20 @ 20:05 by Cara Stroud PA-C) Other Cancer Diabetes Hypertension Social History Smoking Status: Former smoker Tobacco Type: Cigarettes Cigarettes Per Day: 30; Second Hand Exposure: No; Do You Dip or Chew Tobacco: No; Tobacco Cessation Education Requested by Patient: No Hx Alcohol Use: Yes Alcohol type: hard liquor Hx Substance Use: No Preferred Language: Kazakh Communication Ability: Effective Visual Impairment: No Limitations Hearing Ability: Normal Print Developer Automatic Required: No Beliefs That Will Affect Care: None marital status: Current Living Situation: Spouse Other Information That Helps Us Care for You: No Feels Safe at Home: Yes Safety Concerns: Feels Safe At This Time Assistive Devices: CPAP and Glasses Review of Systems A total of 10 systems reviewed and were otherwise negative Physical Exam Vital Signs Vital Signs - 24 hr 07/12/20 15:54 Temperature 37.0 C Temperature Source Oral Pulse Rate 85 Respiratory Rate 18 Respiratory Effort / Characteristics Non-Labored Spontaneous Respiratory Depth Normal Blood Pressure 117/74 Blood Pressure Mean 88 Pulse Oximetry 97 Oxygen Delivery Method Room Air Sepsis Recent Fever Within 48 Hours No Sepsis New/Unexplained Change in Mental Status No Sepsis Action Taken by Nursing No Action Required VITAL SIGNS - Vital signs and nursing notes were reviewed. Stable and afebrile. GENERAL -64 [id number] appearing his stated age who is in no acute distress. Communicates well with provider and answers questions appropriately. SKIN -no meningeal or petechial rashes. The left hand, dorsal aspect is erythematous with diffuse erythema and edema to the left third digit with necrotic appearance distal with whitish nonperfused distal aspect with darkened region. No drainage. Erythema does not track proximal beyond that of the left wrist. No lymphangitic streaking. LUNGS - Chest wall symmetric without accessory muscle use, intercostals retractions, or central cyanosis. Normal vesicular breath sounds CTA B/L. No wheezes, rales, or rhonchi appreciated. CARDIAC - RRR with S1/S2. No murmur, rubs, or gallops appreciated. EXTREMITIES - No clubbing or peripheral cyanosis. Skin as above. Decreased range of motion of all digits of the left hand secondary to edema and chronic change. +5/5 strength noted in UE/LE bilaterally. NEUROLOGIC - Cranial nerves II through XII grossly intact. No tenderness to palpation overlying the digits. PSYCH - A&O, and cooperates fully with examiner. Pt is very pleasant and interacts well with examiner. Course Administered Medications Insulin Human Regular 250 (units/ Sodium Chloride) 250 mls @ 5.3 mls/hr IV .Q24H [facility]; Protocol Stop: 08/11/20 18:29 Last Titration: 07/13/20 01:01 Dose: 5.3 units/hr, 5.3 mls/hr Documented by: [id number] Cosigned by: [id number] Titration: 07/13/20 00:04 Dose: 6.6 units/hr, 6.6 mls/hr Documented by: [id number] Cosigned by: [id number] Titration: 07/12/20 23:03 Dose: 5.5 units/hr, 5.5 mls/hr Documented by: [id number] Cosigned by: [id number] Titration: 07/12/20 22:31 Dose: 6.9 units/hr, 6.9 mls/hr Documented by: [id number] Cosigned by: [id number] Titration: 07/12/20 20:11 Dose: 4.9 units/hr, 4.9 mls/hr Documented by: [id number] Cosigned by: [id number] Admin: 07/12/20 18:52 Dose: 4.1 units/hr, 4.1 mls/hr Documented by: [id number] Cosigned by: [id number] Discontinued Medications Piperacillin Sod/Tazobactam Sod (Zosyn) 4.5 gm in 120 mls @ 240 mls/hr IV NOW ONE Stop: 07/12/20 17:10 Last Infusion: 07/12/20 19:54 Dose: 0 mls/hr Documented by: [id number] Admin: 07/12/20 18:43 Dose: 240 mls/hr Documented by: [id number] Daptomycin 300 mg/ Syringe 6 mls @ 3 mls/min IV NOW ONE; Protocol Stop: 07/12/20 16:42 Last Admin: 07/12/20 18:35 Dose: 3 mls/min Documented by: [id number] Sodium Chloride (Nss 1000ml) 1,000 mls @ 999 mls/hr IV .Q1H1M [facility]UNIOR Stop: 07/12/20 19:15 Last Infusion: 07/12/20 19:54 Dose: 0 mls/hr Documented by: [id number] Admin: 07/12/20 18:35 Dose: 999 mls/hr Documented by: [id number] Sodium Chloride (Nss 1000ml) 500 mls @ 999 mls/hr IV .Q31M ONE Stop: 07/12/20 19:08 Last Infusion: 07/12/20 19:54 Dose: 0 mls/hr Documented by: [id number] Admin: 07/12/20 18:57 Dose: 999 mls/hr Documented by: [id number] Insulin Aspart (Insulin Aspart 100 Units/Ml 3 Ml Pen) 0 units SC ACHS YUNIOR Stop: 08/11/20 20:59 Last Admin: 07/12/20 22:34 Dose: Not Given Documented by: [id number] Cosigned by: [id number] Insulin Human Regular (Novolin-R Bolus From Bag) 4 units IV NOW ONE Stop: 07/12/20 18:46 Last Admin: 07/12/20 18:52 Dose: 4 units Documented by: [id number] Cosigned by: [id number] Medical Decision Making Laboratory Data Result diagrams: 07/12/20 17:27 07/12/20 17:27 Lab Results 07/12/20 07/12/20 07/12/20 Range/Units 17:27 17:27 17:27 WBC 11.27 H (4.8-10.8) K/uL RBC 3.53 L (4.7-6.1) M/uL Hgb 10.7 L (14.0-18.0) g/dL Hct 32.7 L (42-52) % MCV 92.6 (80-100) fL MCH 30.3 (25-34) pg MCHC 32.7 (32-36) g/dL RDW Std Deviation 57.4 H (36.4-46.3) fL RDW Coeff of Juan Manuel 17.0 H (11.5-14.5) % Plt Count 529 H (130-400) K/uL MPV 10.2 (7.4-10.4) fL Immature Gran % (Auto) 1.2 % Neut % (Auto) 79.2 % Lymph % (Auto) 9.5 % Fallon % (Auto) 9.5 % Eos % (Auto) 0.2 % Baso % (Auto) 0.4 % Neut # (Auto) 8.94 H (1.4-6.5) K/uL Lymph # (Auto) 1.07 L (1.2-3.4) K/uL Fallon # (Auto) 1.07 H (0.11-0.59) K/uL Eos # (Auto) 0.02 (0-0.5) K/uL Baso # (Auto) 0.04 (0-0.2) K/uL Immature Gran # (Auto) 0.13 H (0.00-0.02) K/uL Sodium 122 L (136-145) mmol/L Potassium 5.2 H (3.5-5.1) mmol/L Chloride 89 L (98-107) mmol/L Carbon Dioxide 22 (21-32) mmol/L Anion Gap 11.0 (3-11) BUN 29 H (7-18) mg/dl Creatinine 1.70 H (0.6-1.4) mg/dl Est Cr Clr Drug Dosing 55.7 ml/min Est GFR ( Amer) 49.0 Est GFR (Non-Af Amer) 42.3 BUN/Creatinine Ratio 16.9 (10-20) Glucose 820 H* (70-99) mg/dl Lactate 2.6 H* (0.4-2.0) mmol/L Calcium 9.6 (8.5-10.1) mg/dl Total Bilirubin 0.8 (0.2-1) mg/dl AST 16 (15-37) U/L ALT 17 (12-78) U/L Alkaline Phosphatase 144 H (45-117) U/L Total Protein 8.2 (6.4-8.2) gm/dl Albumin 2.2 L (3.4-5.0) gm/dl Globulin 6.0 H (2.5-4.0) gm/dl Albumin/Globulin Ratio 0.4 L (0.9-2) Beta-Hydroxybutyric Acd 17.56 H (0.2-2.81) mg/dl Procalcitonin (0-0.5) ng/ml 07/12/20 Range/Units 17:27 WBC (4.8-10.8) K/uL RBC (4.7-6.1) M/uL Hgb (14.0-18.0) g/dL Hct (42-52) % MCV (80-100) fL MCH (25-34) pg MCHC (32-36) g/dL RDW Std Deviation (36.4-46.3) fL RDW Coeff of Juan Manuel (11.5-14.5) % Plt Count (130-400) K/uL MPV (7.4-10.4) fL Immature Gran % (Auto) % Neut % (Auto) % Lymph % (Auto) % Fallon % (Auto) % Eos % (Auto) % Baso % (Auto) % Neut # (Auto) (1.4-6.5) K/uL Lymph # (Auto) (1.2-3.4) K/uL Fallon # (Auto) (0.11-0.59) K/uL Eos # (Auto) (0-0.5) K/uL Baso # (Auto) (0-0.2) K/uL Immature Gran # (Auto) (0.00-0.02) K/uL Sodium (136-145) mmol/L Potassium (3.5-5.1) mmol/L Chloride (98-107) mmol/L Carbon Dioxide (21-32) mmol/L Anion Gap (3-11) BUN (7-18) mg/dl Creatinine (0.6-1.4) mg/dl Est Cr Clr Drug Dosing ml/min Est GFR ( Amer) Est GFR (Non-Af Amer) BUN/Creatinine Ratio (10-20) Glucose (70-99) mg/dl Lactate (0.4-2.0) mmol/L Calcium (8.5-10.1) mg/dl Total Bilirubin (0.2-1) mg/dl AST (15-37) U/L ALT (12-78) U/L Alkaline Phosphatase (45-117) U/L Total Protein (6.4-8.2) gm/dl Albumin (3.4-5.0) gm/dl Globulin (2.5-4.0) gm/dl Albumin/Globulin Ratio (0.9-2) Beta-Hydroxybutyric Acd (0.2-2.81) mg/dl Procalcitonin 0.20 (0-0.5) ng/ml Imaging Data Radiologist's Impression: MR hand LT wo con HISTORY: 64 years-old Male Left hand erythema, left third digit necrotic acute pain and swelling of the left hand third finger with concern for osteomyelitis. COMPARISON: Left hand MRI 04/15/2020 TECHNIQUE: Multiplanar multisequence MRI of the left hand was obtained without the use of IV contrast. FINDINGS: Susceptibility artifact from foreign body within the region of the second MCP joints limits the study. 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 Soft tissue defect with osseous erosion and mild bone marrow edema is again noted involving the first distal phalanx. Interval development of osseous erosion with marrow edema involving the second and third distal phalanges with bone marrow edema most pronounced in the third distal phalanx. The fourth digit appears intact. Osseous erosion with bone marrow edema is again noted involving the distal aspect of the fifth distal phalanx with soft tissue ulcer. Extensive diffuse subcutaneous and intramuscular edema. Fluid distention of the second, third and fourth flexor sheaths. Tiny subcutaneous collections noted within the dorsal tissues of the third digit measure up to 11 mm. IMPRESSION: 1. Multifocal osseous erosions with associated bone marrow edema. These findings within the first and fifth distal phalanges appear similar to the 04/15/2020 exam, however erosions within the second and third distal phalanges are new from comparison. Findings are again suggestive of osteomyelitis. 2. There is diffuse subcutaneous, deep tissue and intramuscular edema throughout the hand suggestive of cellulitis/myositis. The intramuscular edema may also be secondary to denervation changes. 3. There are small subcutaneous fluid collections measuring up to 11 mm within the dorsal tissues of the third finger suspicious for abscesses. 4. Tenosynovitis of the second, third and fourth flexor sheaths may be reactive or reflect infectious tenosynovitis. ACT 112: Negative or not required by law. The above report was generated using voice recognition software. It may contain grammatical, syntax or spelling errors. Electronically signed by: Nate Arana M.D. 07/12/2020 9:23 PM [facility] Narrative Patient was seen and evaluated as above in room B8. Review was performed of nursing notes and vital signs. I did review pertinent previous visits and patient history. After obtaining a thorough history and physical examination the above work up was performed. Patient presents to us today with what appears to be a necrotic left third distal digit with extending erythema into the proximal left third digit and now left hand. I reviewed the previous MRI result as well as his microbiology reports. It appears that this is similar to presentation in the past. At this time he appears afebrile. He is nontoxic on exam. I discussed the presentation with the on-call hand specialist, Dr. Lancaster. This was secondary to the patient being evaluated and previously undergoing surgery by Dr. Rico, his colleague. Options of care were discussed with the patient. IV access established. Labs were drawn. He was given empiric Zosyn and daptomycin for the infection. The patient will require inpatient management. Laboratory studies reveal leukocytosis 11.27 with hemoglobin at 10.7. Patient does have metabolic disturbances to include that of hyponatremia, hyperkalemia. BUN elevated as well as creatinine. Glucose 820. Lactic 2.2. Pro-Jack within normal limits. At this time the plan is to have the patient n.p.o. after midnight, and likely surgical intervention tomorrow. MRI will be obtained for surgical planning. I will place a nonstick dressing to the left third digit pending eval in the a.m. by orthopedics. Case discussed with the hospitalist. Please refer to further documentation regarding his stay. I will note that after initial discussion the patient's glucose did result. At that point the patient had already been evaluated by the inpatient team and I did receive a phone call from them and they noted that they will manage the hyperglycemia and orders were placed by that team. Case was discussed with the attending physician. GCS: 15 In the evaluation and treatment of this patient the following differential diagnoses were entertained: Fracture, dislocation, subluxation, contusion, infection, osteomyelitis, among others. Impression & Plan Osteomyelitis of finger of left hand, Cellulitis of multiple sites of left hand and fingers, Acute hyperglycemia Discharge Plan Visit Data Chief Complaint: Infection Stated Complaint: COVID + ON JUL 04, SEVERE INFECTION ON L HAND/FING ED Provider: John Reeder ED Midlevel Provider: Isacc Brown Discharge Problem: Osteomyelitis of finger of left hand, Cellulitis of multiple sites of left hand and fingers, Acute hyperglycemia Patient Disposition: Admitted As Inpatient Condition: Good Discharge Instructions Interventions: ED Discharge Assessment Last Done: 07/12/20 20:17
[2020-07-12 17:44] LABS: Basophils # (auto) 0.04 K/uL (0-0.2); Basophils % (auto) 0.4 %; Eosinophils # (auto) 0.02 K/uL (0-0.5); Eosinophils % (auto) 0.2 %; Hematocrit (blood only) 32.7 % (42-52); Hemoglobin 10.7 g/dL (14.0-18.0); Immature Granulocytes # (auto) 0.13 K/uL (0.00-0.02); Immature Granulocytes % (auto) 1.2 %; Lymphocytes # (auto) 1.07 K/uL (1.2-3.4); Lymphocytes % (auto) 9.5 %; Mean Corpuscular Hemoglobin 30.3 pg (25-34); Mean Corpuscular Hgb Conc 32.7 g/dL (32-36); Mean Corpuscular Volume 92.6 fL (80-100); Mean Platelet Volume 10.2 fL (7.4-10.4); Monocytes # (auto) 1.07 K/uL (0.11-0.59); Monocytes % (auto) 9.5 %; Neutrophils # (auto) 8.94 K/uL (1.4-6.5); Neutrophils % (auto) 79.2 %; Platelet Count 529 K/uL (130-400); RDW Standard Deviation 57.4 fL (36.4-46.3); Red Blood Count 3.53 M/uL (4.7-6.1); White Blood Count 11.27 K/uL (4.8-10.8)
--- NOTE | 2020-07-12 18:07 | History & Physical Report ---
Date of Service July 12, 2020 Assessment & Plan (1) Cellulitis of hand: Possible osteomyelitis Sepsis Pt is 64 y/o M with PMH uncontrolled Type 1 DM, hypothyroidism, CHANTELL on CPAP, asthma, HTN, CAD, GERD, Obesity, NSTEMI presented to ER with complaint of left index, middle, and 5th finger erythema x 3-4 weeks. In ER patient afebrile, vitals stable. WBC: 11, lactic acid: 2.6, procalcitonin 0.2 -In ER given Zosyn, daptomycin, 1 L NSS -Will continue Zosyn and daptomycin -Pending blood cultures -Repeat lactic acid -Pending MRI hand -Ortho consult, contacted by ER provider recommends MRI, n.p.o. midnight for possible procedure -CBC, BMP in a.m. (2) KRISTIN (acute kidney injury): Cr: 1.7. Baseline~1.2 -IV fluids -Monitor renal functions, avoid nephrotoxic agents when possible -Hold Lasix and losartan (3) Hyperglycemia: (4) Type 1 diabetes: History uncontrolled diabetes. Patient recently with insulin pump A1c: 9.3 in 04/2019 In ER random glucose 820. Beta hydroxybutyric acid: 17. Normal anion gap, does not appear to be in DKA Turn off patient's insulin pump, will start IV insulin Glycemic pharmacist to assist Pseudohyponatremia Sodium 134 corrected for glucose 820 Hyperkalemia potassium: 5.2 Expect will decrease with insulin Repeat BMP (5) COVID-19: History of cough for 2 weeks. Had positive COVID-19 testing 07/04/2020 outpatient Cough is improved. No tachycardia or hypoxia. Isolation precautions (6) History of non-ST elevation myocardial infarction (NSTEMI): History negative stress test in 02/2020. History of cardiac cath 2016. Medical management. Patient denies chest pain Hold Plavix and aspirin in case of procedure. Continue metoprolol (7) HTN (hypertension): BP stable Hold losartan Continue amlodipine and metoprolol (8) Hypothyroidism: Continue levothyroxine DVT Prophylaxis -Heparin SQ Full Code as per discussion with pt Follows with [facility] routine care Pt was seen and care coordinated with [facility]_. See addendum History of Present Illness Chief Complaint: Left finger infection Primary Care Provider: Farzad Hatfield DO Pt is 64 y/o M with PMH uncontrolled Type 1 DM, hypothyroidism, CHANTELL on CPAP, asthma, HTN, CAD, GERD, Obesity, NSTEMI presented to ER with complaint of left finger erythema. Patient states 3 to 4 weeks ago noticed left index and middle and fifth finger with erythema and edema. Fingers tips of those fingers progressed to peeling and with purulent drainage. Patient states left middle finger worse and turned black color. Has neuropathy and denies any pain. He started doxycycline 5 days ago without significant improvement. Denies fevers or chills or nausea or vomiting. Denies red streaking. Patient reports had a cough for approximately 2 weeks and was tested for Covid on 07/04/2020 which was positive. He reports his cough has been improving. He reports chronic shortness of breath at baseline but denies any increased shortness of breath. Denies chest pain, loss of taste or smell. 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 Denies diapho resis, N/V/D/C, HARDEN, dizziness, syncope, vision changes, neck pain, CP, SOB, orthopnea, palpitations, hemoptysis, sore throat, choking, otalgia, rhinorrhea, abdominal pain, paresthesias, weakness, extremity weakness, other extremity edema, rashes, urinary symptoms. Had negative stress echo in 02/2020 Allergies Allergy/AdvReac Type Severity Reaction Status Date / Time DEIDRE Inhibitors AdvReac Unknown Cough Verified 07/12/20 19:04 Home Medications Medication Instructions Recorded Confirmed Type aspirin 81 mg tablet,delayed 81 mg PO QAM 02/04/18 07/12/20 History release clopidogrel 75 mg tablet 75 mg PO QAM 02/04/18 07/12/20 History finasteride 5 mg tablet 5 mg PO QAM tab 02/04/18 07/12/20 History folic acid 1 mg tablet 1 mg PO QAM tab 02/04/18 07/12/20 History levothyroxine 125 mcg tablet 125 mcg PO QAM 02/04/18 07/12/20 History multivitamin with minerals 1 tab PO QAM tab 02/04/18 07/12/20 History tamsulosin 0.4 mg capsule 0.4 mg PO cap 02/04/18 07/12/20 History venlafaxine 75 mg capsule,extended 75 mg PO QAM cap 02/04/18 07/12/20 History release 24 hr albuterol sulfate 2 puff INHALATION Q4H PRN 05/13/18 07/12/20 History losartan 50 mg PO BID 05/13/18 07/12/20 History Lantus Solostar U-100 Insulin 100 unit SUBCUT QAM PRN 04/14/20 07/12/20 History atorvastatin 40 mg PO QAM 04/14/20 07/12/20 History furosemide 40 mg PO QAM 04/14/20 07/12/20 History gabapentin 300 mg PO QAM 04/14/20 07/12/20 History metoprolol succinate 25 mg PO QAM 04/14/20 07/12/20 History omeprazole 20 mg PO QAM 04/14/20 07/12/20 History potassium chloride 40 meq PO QAM 04/14/20 07/12/20 History sennosides-docusate sodium 1 tab-cap PO QAM 04/14/20 07/12/20 History [Senokot-S] amlodipine 5 mg PO DAILY 07/12/20 07/12/20 History doxycycline hyclate 100 mg PO BID 07/12/20 07/12/20 History ibuprofen 600 mg PO Q6H PRN 07/12/20 07/12/20 History insulin aspart U-100 See Rx Instructions .ROUTE .COMPLEX 07/12/20 07/12/20 History Past Med/Surg History Medical History Altered mental status Aortic root enlargement BPH (benign prostatic hyperplasia) CAD (coronary artery disease) COPD (chronic obstructive pulmonary disease) Dyslipidemia GERD (gastroesophageal reflux disease) HTN (hypertension) Hyponatremia NSTEMI (non-ST elevated myocardial infarction) NSTEMI (non-ST elevated myocardial infarction) NSTEMI (non-ST elevated myocardial infarction) CHANTELL (obstructive sleep apnea) Type 1 diabetes Surgical History H/O adenoidectomy History of hip replacement History of tonsillectomy Family History (Updated 07/12/20 @ 20:05 by Cara Stroud PA-C) Other Cancer Diabetes Hypertension Social History Smoking Status: Never smoker Tobacco Type: Cigarettes Cigarettes Per Day: 30; Hx Alcohol Use: No Hx Substance Use: No Preferred Language: Bolivian Communication Ability: Effective Visual Impairment: No Limitations Hearing Ability: Normal Beliefs That Will Affect Care: None marital status: Current Living Situation: Spouse and Family Feels Safe at Home: Yes Assistive Devices: Glasses Review of Systems Review of Systems: All systems reviewed & are unremarkable except as noted in HPI & below Physical Exam Physical Exam: Per Dr Salinas Results & Data Results & Data ([facility]) Vital Signs (Past 12 Hours) Vital Signs Temp Pulse Resp BP Pulse Ox 07/12/20 15:54 37.0 C 85 18 117/74 97 Laboratory Results Short CBC 07/12/20 07/12/20 Range/Units 17:27 17:27 WBC 11.27 H (4.8-10.8) K/uL Hgb 10.7 L (14.0-18.0) g/dL Hct 32.7 L (42-52) % Plt Count 529 H (130-400) K/uL Lactate 2.6 H* (0.4-2.0) mmol/L BMP 07/12/20 17:27 Sodium 122 L Potassium 5.2 H Chloride 89 L Carbon Dioxide 22 BUN 29 H Creatinine 1.70 H Glucose 820 H* Calcium 9.6 Liver Function 07/12/20 Range/Units 17:27 Total Bilirubin 0.8 (0.2-1) mg/dl AST 16 (15-37) U/L ALT 17 (12-78) U/L Alkaline Phosphatase 144 H (45-117) U/L Albumin 2.2 L (3.4-5.0) gm/dl Supervising Physician Co-Signing Physician Notes Patient is a 64-year-old male with history of uncontrolled type 1 diabetes mellitus, coronary artery disease, asthma and other medical problems presents with history of left finger erythema, swelling, purulent discharge, foul- smelling odor since 3 to 4 weeks duration. He denied any pain. He was recently hospitalized 2 months ago and was treated for osteomyelitis, cellulitis of left hand/fifth distal phalanges. He also reports cough since 2 weeks duration and was tested positive for Covid on July 04. He is saturating well on room air. Please review HPI for complete details of presentation. He was found to have leukocytosis 11.27, chronic anemia hemoglobin 10.7, pseudohyponatremia 122, mild hyperkalemia 5.2, KRISTIN with creatinine 1.7, hyperglycemia 820, lactic acidosis 2.6 and normal procalcitonin levels. Left hand MRI is currently pending. Physical Exam: Vitals signs as noted above General Appearance:Moderately built and nourished, no apparent distress Head: normocephalic, Atraumatic Eyes: normal inspection, EOMI, PERRL Neck: supple, Trachea midline Respiratory/Chest: Decreased breath sounds, CTA, No accessory muscle use Cardiovascular: S1, S2, No murmur Abdomen/GI:Soft, Non tender, Bowel sounds present, +Insulin pump Extremities/Musculoskelatal:normal inspection, no edema, LUE: Left hand erythema, edematous, left middle digit swollen, erythematous, purulent, left index finger whitish, RUE: S/P index finger amputated Neurologic/Psych:AAOX3, grossly no focal neurological deficits Skin:normal color,warm Sepsis Left Hand Cellulitis Possible Osteomyelitis KRISTIN Lactic Acidosis Agree with broad-spectrum antibiotics Zosyn, daptomycin, IV fluids Blood cultures obtained MRI of the hand pending Consulted Ortho N.p.o. after midnight Trend lactate levels Avoid nephrotoxic agents--hold losartan, furosemide Uncontrolled type 1 diabetes mellitus Update HbA1c No signs of DKA Started on IV insulin Pharmacy to help with glycemic management Covid 19 Saturating well on room air Currently does not meet criteria for treatment I personally reviewed the record. Patient is interviewed and examined at bedside. Patient's care is coordinated with Cara Stroud PA-C. Please refer to the documentation above for details of patient's presentation and for discussion of other issues.
[2020-07-12 18:09] LABS: Albumin Globulin Ratio 0.4 (0.9-2); Albumin Level 2.2 gm/dl (3.4-5.0); BUN Creatinine Ratio 16.9 (10-20); Bilirubin,Total 0.8 mg/dl (0.2-1); Calcium 9.6 mg/dl (8.5-10.1); Creatinine Clr Calc Pharmacy 55.7 ml/min; Est GFR (Non-African American) 42.3; Potassium 5.2 mmol/L (3.5-5.1); Total Protein 8.2 gm/dl (6.4-8.2)
[2020-07-12] MEDS ORDERED: SODIUM CHLORIDE 0.9% 1000ML 1,000 ML IV SCH (18:15)
[2020-07-12 18:24] LABS: Beta-Hydroxybutyrate 17.56 mg/dl (0.2-2.81)
[2020-07-12] MEDS ORDERED: INSULIN PROTOCOL GOAL RANGE ONE (18:24)
[2020-07-12] MEDS ORDERED: INSULIN REGULAR 250 UNITS in SODIUM CHLORIDE 0.9% 247.5 ML IV SCH (18:30)
[2020-07-12] MEDS ORDERED: PHARMACY GLYCEMIC MGMT CONSULT PRN (18:31)
[2020-07-12] MEDS ORDERED: SODIUM CHLORIDE 0.9% 1000ML 500 ML IV ONE (18:38)
[2020-07-12] MEDS ORDERED: DEXTROSE 50% 50 ML SYRINGE IV PRN (18:45)
[2020-07-12] MEDS ORDERED: NovoLIN-R BOLUS FROM BAG IV ONE (18:45)
[2020-07-12] MEDS ORDERED: CARBOHYDRATES FOR HYPOGLYCEMIA PO PRN (18:45)
[2020-07-12] MEDS ORDERED: GLUCOSE 40% GEL 15 GM TUBE PO PRN (18:45)
[2020-07-12] MEDS ORDERED: GLUCAGON FOR INJ 1 MG VIAL IM PRN (18:45)
[2020-07-12] MEDS ORDERED: GLUCOSE 10 TABS/TUBE PO PRN (18:45)
[2020-07-12] MEDS ORDERED: INSULIN ASPART 100 UNITS/ML 3 ML PEN SC SCH (21:00)
--- NOTE | 2020-07-12 21:24 | Magnetic Resonance Report ---
MR hand LT wo con HISTORY: 64 years-old Male Left hand erythema, left third digit necrotic acute pain and swelling of the left hand third finger with concern for osteomyelitis. COMPARISON: Left hand MRI 04/15/2020 TECHNIQUE: Multiplanar multisequence MRI of the left hand was obtained without the use of IV contrast . FINDINGS: Susceptibility artifact from foreign body within the region of the second MCP joints limits the study . 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 Soft tissue defect with osseous erosion and mild bone m arrow edema is again noted involving the first distal phalanx. Interval development of osseous erosio n with marrow edema involving the second and third distal phalanges with bone marrow edema most prono unced in the third distal phalanx. The fourth digit appears intact. Osseous erosion with bone marrow edema is again noted involving the distal aspect of the fifth distal phalanx with soft tissue ulcer. Extensive diffuse subcutaneous and intramuscular edema. Fluid distention of the second, third and fou rth flexor sheaths. Tiny subcutaneous collections noted within the dorsal tissues of the third digit measure up to 11 mm. IMPRESSION: 1. Multifocal osseous erosions with associated bone marrow edema. These findings within the first and fifth distal phalanges appear similar to the 04/15/2020 exam, however erosions within the second and third distal phalanges are new from comparison. Findings are again suggestive of osteomyelitis. 2. There is diffuse subcutaneous, deep tissue and intramuscular edema throughout the hand suggestive of cellulitis/myositis. The intramuscular edema may also be secondary to denervation changes. 3. There are small subcutaneous fluid collections measuring up to 11 mm within the dorsal tissues of the third finger suspicious for abscesses. 4. Tenosynovitis of the second, third and fourth flexor sheaths may be reactive or reflect infectious tenosynovitis. ACT 112: Negative or not required by law. The above report was generated using voice recognition software. It may contain grammatical, syntax o r spelling errors. Electronically signed by: Nate Arana M.D. 07/12/2020 9:23 PM
[2020-07-13] MEDS ORDERED: GLUCAGON FOR INJ 1 MG VIAL SQ PRN (00:11)
[2020-07-13] MEDS ORDERED: CARBOHYDRATES FOR HYPOGLYCEMIA PO PRN (00:11)
[2020-07-13] MEDS ORDERED: POLYETHYLENE (MIRALAX) 17 GM PACK PO PRN (00:11)
[2020-07-13] MEDS ORDERED: ALBUTEROL HFA 8 GM INHALER INH PRN (00:11)
[2020-07-13] MEDS ORDERED: INSULIN ASPART 100 UNITS/ML 3 ML PEN SC SCH ×2 (00:11→07:30)
[2020-07-13] MEDS ORDERED: GLUCOSE 10 TABS/TUBE PO PRN (00:11)
[2020-07-13] MEDS ORDERED: DEXTROSE 50% 50 ML SYRINGE IV PRN (00:11)
[2020-07-13] MEDS ORDERED: SODIUM CHLORIDE 0.9% 1000ML 1,000 ML IV SCH (00:11)
[2020-07-13] MEDS ORDERED: INSULIN GLARGINE SOLOSTAR 100 UNITS/ML 3 ML PEN SC ONE (00:11)
[2020-07-13] MEDS ORDERED: ONDANSETRON INJ 2 MG/ML 2 ML VIAL IV PRN ×2 (00:11→13:50)
[2020-07-13] MEDS ORDERED: ACETAMINOPHEN 325 MG TAB PO PRN (00:11)
[2020-07-13] MEDS ORDERED: GLUCOSE 40% GEL 15 GM TUBE PO PRN (00:11)
[2020-07-13] MEDS ORDERED: PHARMACY GLYCEMIC MGMT CONSULT PRN (00:34)
[2020-07-13] MEDS: HEPARIN SOD 5,000 UNIT/0.5 ML VIAL SQ SCH ×4 (02:07→21:45)
[2020-07-13] MEDS: TAMSULOSIN HCL 0.4 MG CAP PO SCH ×2 (02:07→21:43)
[2020-07-13] MEDS: PIPERACILLIN/TAZOBACTAM 4.5 GM in DEXTROSE 5% 100 ML IV SCH ×3 (02:07→17:45)
[2020-07-13 02:39] LABS: Basophils # (auto) 0.04 K/uL (0-0.2); Basophils % (auto) 0.4 %; Eosinophils # (auto) 0.12 K/uL (0-0.5); Eosinophils % (auto) 1.1 %; Immature Granulocytes # (auto) 0.12 K/uL (0.00-0.02); Immature Granulocytes % (auto) 1.1 %; Lymphocytes # (auto) 1.37 K/uL (1.2-3.4); Mean Corpuscular Hemoglobin 29.8 pg (25-34); Mean Corpuscular Hgb Conc 33.3 g/dL (32-36); Mean Corpuscular Volume 89.3 fL (80-100); Mean Platelet Volume 9.5 fL (7.4-10.4); Monocytes # (auto) 1.69 K/uL (0.11-0.59); Monocytes % (auto) 16.1 %; Neutrophils # (auto) 7.16 K/uL (1.4-6.5); Neutrophils % (auto) 68.3 %; Platelet Count 496 K/uL (130-400); RDW Coefficient of Variation 16.3 % (11.5-14.5); RDW Standard Deviation 53.2 fL (36.4-46.3); Red Blood Count 3.36 M/uL (4.7-6.1)
[2020-07-13 02:56] LABS: BUN Creatinine Ratio 19.4 (10-20); Calcium 9.1 mg/dl (8.5-10.1); Creatinine Clr Calc Pharmacy 79.8 ml/min; Est GFR (African American) 73.9; Est GFR (Non-African American) 63.8; Potassium 3.6 mmol/L (3.5-5.1)
[2020-07-13] MEDS: NSS + 20MEQ KCL 20 MEQ/1,000 ML BAG IV SCH ×3 (06:28→21:43)
[2020-07-13 06:41] LABS: Estimated Average Glucose 258 mg/dl; Hemoglobin A1C 10.6 % (4.5-5.6)
--- NOTE | 2020-07-13 07:59 | Hospitalist Progress Note ---
Date of Service July 13, 2020 Assessment & Plan (1) Cellulitis of hand: Osteomyelitis on MRI Sepsis Pt is 64 y/o M with PMH uncontrolled Type 1 DM, hypothyroidism, CHANTELL on CPAP, asthma, HTN, CAD, GERD, Obesity, NSTEMI presented to ER with complaint of left index, middle, and 5th finger erythema x 3-4 weeks. In ER patient afebrile, vitals stable. WBC: 11, lactic acid: 2.6, procalcitonin 0.2 -In ER given Zosyn, daptomycin, 1 L NSS -Continue Zosyn and daptomycin -Pending blood cultures -Repeat lactic acid -MRI hand + OM -Ortho on case, contacted by ER provider recommends MRI, n.p.o. -Monitor Labs. (2) KRISTIN (acute kidney injury): Cr: 1.7. Baseline~1.2 -IV fluids -Monitor renal functions, avoid nephrotoxic agents when possible -Hold Lasix and losartan (3) Hyperglycemia: (4) Type 1 diabetes: History uncontrolled diabetes. Patient recently with insulin pump A1c: 9.3 in 04/2019 In ER random glucose 820. Beta hydroxybutyric acid: 17. Normal anion gap, does not appear to be in DKA Turn off patient's insulin pump, will start IV insulin Glycemic pharmacist to assist Pseudohyponatremia Sodium 134 corrected for glucose 820 Hyperkalemia potassium: 5.2 Expect will decrease with insulin Repeat BMP (5) COVID-19: History of cough for 2 weeks. Had positive COVID-19 testing 07/04/2020 outpatient Cough is improved. No tachycardia or hypoxia. Isolation precautions (6) History of non-ST elevation myocardial infarction (NSTEMI): History negative stress test in 02/2020. History of cardiac cath 2016. Medical management. Patient denies chest pain Hold Plavix and aspirin in case of procedure. Continue metoprolol (7) HTN (hypertension): BP stable Hold losartan Continue amlodipine and metoprolol (8) Hypothyroidism: Continue levothyroxine DVT Prophylaxis -Heparin SQ Full Code Labs Checked ROS-No Headache, No Visual Changes, No Nausea, No Vomiting, No Fever, No Chills, No Neck Pain or Stiffness, No Chest Pain, No Palpitations, No SOB, No BOGGS, No Cough, No Sputum, No Wheezing, No Abdominal Pain, No Diarrhea, No Hematemesis, No Hemoptysis, No Unexpected Weight Loss, No Flank pain, No Melena, No Hematochezia, No Frequency, No Urgency, No Burning, No Hematuria, No Rashes, No Diaphoresis. Appetite is Normal Physical Exam Gen-AAO x 3, NAD, Afebrile Head-NCAT, EOMI, PERRLA, Anicteric Sclera, No Posterior Pharyngeal Erythema Neck-Supple, No JVD, No Thyromegaly, No Masses, No LAD, No Bruits Lungs-Clear to Auscultation Bilaterally, No Rales, No Rhonchi, No Wheezing, No Crepitus Chest-No S4, +S1, +S2, No S3, No Murmurs, No Rubs, No Gallops, No Ectopy Abdomen-Soft, Bowel Sounds Present, Non Tender, Non Distended, No Hepatomegaly, No Splenomegaly, No Palpable Masses, No Rebound, No Rigidity, No Guarding Musculoskeletal-Full Range of Motion Bilaterally, No CVAT Extremities-No Cyanosis, No Clubbing, No Edema, Left Hand deformity, L 3rd finger wrapped Nuero-Cranial Nerves II-XII grossly intact, Motor WNL, DTRs WNL, Strength WNL, Non Focal Psych-Normal Mood Admission and Anticipated Discharge Date Admission Date: July 12, 2020 Results & Data Results & Data ([facility]) Vital Signs (Past 12 Hours) Vital Signs Temp Pulse Pulse Resp BP Pulse Ox Pulse Ox 07/13/20 07:24 36.6 C 65 18 140/74 96 07/13/20 03:22 36.9 C 66 18 145/85 H 96 07/13/20 02:15 85 16 98 07/13/20 00:11 36.7 C 66 15 138/66 92 92 07/12/20 23:52 36.7 C 92 H 18 138/66 92 07/12/20 21:47 36.6 C 16 97
[2020-07-13] MEDS: LEVOTHYROXINE SODIUM 125 MCG TABLET PO SCH (08:48)
--- NOTE | 2020-07-13 08:52 | Anesthesiology Consultation ---
Date of Service July 13, 2020 Assessment & Plan Chart Review Chart Review: Acceptable Risk for Surgery and Patient NOT seen in Pre Admission Testing Consults Requested none ASA ASA4 History Surgery Operation Date: 07/13/20 12:30 Proposed Procedures p Left Middle Finger Amputation - Santana Lancaster M.D. Height/Weight Height: 5 ft 11 in Weight: 110 kg Allergies Allergy/AdvReac Type Severity Reaction Status Date / Time DEIDRE Inhibitors AdvReac Unknown Cough Verified 07/12/20 19:04 Medications Home Medications Medication Instructions Recorded Confirmed Last Taken aspirin 81 mg tablet,delayed 81 mg PO QAM 02/04/18 07/12/20 07/12/20 release clopidogrel 75 mg tablet 75 mg PO QAM 02/04/18 07/12/20 07/12/20 finasteride 5 mg tablet 5 mg PO QAM tab 02/04/18 07/12/20 07/12/20 folic acid 1 mg tablet 1 mg PO QAM tab 02/04/18 07/12/20 07/12/20 levothyroxine 125 mcg tablet 125 mcg PO QAM 02/04/18 07/12/20 04/14/20 multivitamin with minerals 1 tab PO QAM tab 02/04/18 07/12/20 07/12/20 tamsulosin 0.4 mg capsule 0.4 mg PO HS cap 02/04/18 07/12/20 07/11/20 venlafaxine 75 mg capsule,extended 75 mg PO QAM cap 02/04/18 07/12/20 07/12/20 release 24 hr albuterol sulfate 2 puff INHALATION Q4H PRN 05/13/18 07/12/20 05/16/18 losartan 50 mg PO BID 05/13/18 07/12/20 07/12/20 AM DOSE Lantus Solostar U-100 Insulin 100 unit SUBCUT QAM PRN 04/14/20 07/12/20 04/14/20 100 units atorvastatin 40 mg PO QAM 04/14/20 07/12/20 07/12/20 furosemide 40 mg PO QAM 04/14/20 07/12/20 07/12/20 gabapentin 300 mg PO QAM 04/14/20 07/12/20 07/12/20 metoprolol succinate 25 mg PO QAM 04/14/20 07/12/20 07/12/20 omeprazole 20 mg PO QAM 04/14/20 07/12/20 07/12/20 potassium chloride 40 meq PO QAM 04/14/20 07/12/20 07/12/20 sennosides-docusate sodium 1 tab-cap PO QAM 04/14/20 07/12/20 07/12/20 [Senokot-S] amlodipine 5 mg PO DAILY 07/12/20 07/12/20 Unknown doxycycline hyclate 100 mg PO BID 07/12/20 07/12/20 07/12/20 AM DOSE ibuprofen 600 mg PO Q6H PRN 07/12/20 07/12/20 Unknown insulin aspart U-100 See Rx Instructions .ROUTE .COMPLEX 07/12/20 07/12/20 07/12/20 Active Medications Generic Name Dose Route Start Last Admin Trade Name Freq PRN Reason Stop Dose Admin Heparin Sodium (Porcine) 5,000 units 07/13/20 00:11 07/13/20 06:27 Heparin Sod 5,000 Unit/0.5 Ml Vial SQ 08/12/20 00:10 5,000 units Q8 YUNIOR Administration Piperacillin Sod/Tazobactam 120 mls @ 30 mls/hr 07/13/20 02:00 07/13/20 06:28 Sod 4.5 gm/ Dextrose IV 08/24/20 01:59 Infused Q8H YUNIOR Infusion Protocol Potassium Chloride/Sodium Chloride 20 meq in 1,000 mls @ 125 mls/hr 07/13/20 06:00 07/13/20 06:28 Normal Saline W/20 Meq Kcl IV 08/12/20 05:59 125 mls/hr .Q8H YUNIOR Administration Levothyroxine Sodium 125 mcg 07/13/20 06:30 07/13/20 08:48 Levothyroxine Sodium 125 Mcg Tablet PO 08/12/20 06:29 125 mcg DAILYBB YUNIOR Administration Tamsulosin HCl 0.4 mg 07/13/20 00:11 07/13/20 02:07 Tamsulosin Hcl 0.4 Mg Cap PO 08/12/20 00:10 0.4 mg HS YUNIOR Administration Past Medical History Medical History Altered mental status Aortic root enlargement BPH (benign prostatic hyperplasia) CAD (coronary artery disease) COPD (chronic obstructive pulmonary disease) Dyslipidemia GERD (gastroesophageal reflux disease) HTN (hypertension) Hyponatremia NSTEMI (non-ST elevated myocardial infarction) NSTEMI (non-ST elevated myocardial infarction) NSTEMI (non-ST elevated myocardial infarction) CHANTELL (obstructive sleep apnea) Type 1 diabetes Exercise / Class Metabolic Activity III < 4 Walking/Shop/Light housework Past Family History Family History Other Cancer Diabetes Hypertension Past Surgical History Surgical History H/O adenoidectomy History of hip replacement History of tonsillectomy Past Anesthesia History No Hx of Anesthesia Complications and No Family Hx of Anesthesia Complications History of PONV No Hx of PONV and No Hx of Motion Sickness Social History Smoking Status: Former smoker Smoking cigarettes per day: 30 Do You Dip or Chew Tobacco: No Hx Alcohol Use: Yes Alcohol type: hard liquor alcohol intake frequency: 3 or more drinks per day Alcohol Intake Frequency Comment: patient states he is cutting back Hx Substance Use: No substance use type: does not use Physical Exam Vital Signs Last Vital Signs Temp 36.6 C 07/13/20 07:24 Pulse 65 07/13/20 07:24 Resp 18 07/13/20 07:24 BP 140/74 07/13/20 07:24 Pulse Ox 96 07/13/20 07:24 Testing Laboratory Results 07/13/20 02:29 07/13/20 02:29 Hemoglobin A1c 10.6 % (4.5-5.6) H 07/13/20 02:29 07/13/20 07/13/20 07/13/20 08:37 07:26 06:14 POC Glucose 105 H 128 H 131 H 07/13/20 07/13/20 07/13/20 05:08 04:12 03:17 POC Glucose 254 H 153 H 162 H 07/13/20 07/13/20 07/13/20 01:56 00:56 00:01 POC Glucose 240 H 280 H 399 H* 07/12/20 07/12/20 07/12/20 22:59 22:28 22:27 POC Glucose 455 H* 545 H* 537 H* Electrocardiogram Date: 07/12/20 Findings: + NSR @ (at 74) Echocardiogram Date: 04/19/20 EF: 55% LV Function: normal RWMA: + none Other Findings: + LVH (mild) and + diastolic dysfunction (grade 1) Valvular Disease: + no significant valvular disease
[2020-07-13] MEDS: INSULIN ASPART 100 UNITS/ML 3 ML PEN SC SCH ×4 (08:55→21:44)
--- NOTE | 2020-07-13 09:11 | Orthopedic Consultation ---
Date of Consultation July 13, 2020 Assessment & Plan (1) Osteomyelitis of finger of left hand: He has an acute gross infection within the left middle finger, and likely more chronic infections with chronic osteomyelitis of the other digits in the left hand. Since he has dry ulcers within the tips of the other fingers, and they do not appear acutely infected, I will focus on the middle finger only right now. There is gross purulence there, and I do not want to spread this infection into the other digits. We will need to do an urgent irrigation and debridement of the middle finger, with amputation dependent on the level of infection and necrosis discovered intraoperatively. I will plan to be very aggressive with the debridement and amputation level to clear this infection and prevent recurrent infection. He obviously does not take care of his blood glucose levels at all, and he freely admits this. He is at high risk for persistent or recurrent infection. Risks, benefits, and alternatives of surgery were explained in detail. The surgical procedure, as well as postoperative recovery and rehabilitation, was also explained in detail. Risks include bleeding; persistent infection; damage to surrounding structures such as nerves, blood vessels, and tendons that run in the area; persistent pain, weakness, or stiffness; or need for further surgery. The patient understands all of this and wishes to proceed with surgery. Informed consent was obtained. Present on Admission?: Yes History of Present Illness Reason for Consultation: Left middle finger infection Attending Physician: Gabriel Marshall, History of Present Illness Mr. Hatfield is a 64-year-old [id number] male with very poorly controlled diabetes who comes in with acute infection in his left middle finger over the past 1.5 weeks. He freely admits that "I do not take care of myself", and has noticed worsening swelling, purulent drainage, and tissue falling off on the end of his left middle finger. He has a long history of finger infections. He previously underwent partial amputations of his left small finger and left thumb by Dr. Rico back in April 2020. He notes that he has persistent ulcerations on the tips of almost all of his digits on both hands, that will occasionally become infected and drain. He has very poor sensation in all of his digits, and really cannot feel anything. No significant pain. Allergies Allergy/AdvReac Type Severity Reaction Status Date / Time DEIDRE Inhibitors AdvReac Unknown Cough Verified 07/12/20 19:04 Home Medications Medication Instructions Recorded Confirmed Type aspirin 81 mg tablet,delayed 81 mg PO QAM 02/04/18 07/12/20 History release clopidogrel 75 mg tablet 75 mg PO QAM 02/04/18 07/12/20 History finasteride 5 mg tablet 5 mg PO QAM tab 02/04/18 07/12/20 History folic acid 1 mg tablet 1 mg PO QAM tab 02/04/18 07/12/20 History levothyroxine 125 mcg tablet 125 mcg PO QAM 02/04/18 07/12/20 History multivitamin with minerals 1 tab PO QAM tab 02/04/18 07/12/20 History tamsulosin 0.4 mg capsule 0.4 mg PO HS cap 02/04/18 07/12/20 History venlafaxine 75 mg capsule,extended 75 mg PO QAM cap 02/04/18 07/12/20 History release 24 hr albuterol sulfate 2 puff INHALATION Q4H PRN 05/13/18 07/12/20 History losartan 50 mg PO BID 05/13/18 07/12/20 History Lantus Solostar U-100 Insulin 100 unit SUBCUT QAM PRN 04/14/20 07/12/20 History atorvastatin 40 mg PO QAM 04/14/20 07/12/20 History furosemide 40 mg PO QAM 04/14/20 07/12/20 History gabapentin 300 mg PO QAM 04/14/20 07/12/20 History metoprolol succinate 25 mg PO QAM 04/14/20 07/12/20 History omeprazole 20 mg PO QAM 04/14/20 07/12/20 History potassium chloride 40 meq PO QAM 04/14/20 07/12/20 History sennosides-docusate sodium 1 tab-cap PO QAM 04/14/20 07/12/20 History [Senokot-S] amlodipine 5 mg PO DAILY 07/12/20 07/12/20 History doxycycline hyclate 100 mg PO BID 07/12/20 07/12/20 History ibuprofen 600 mg PO Q6H PRN 07/12/20 07/12/20 History insulin aspart U-100 See Rx Instructions .ROUTE .COMPLEX 07/12/20 07/12/20 History Patient History Medical History Altered mental status Aortic root enlargement BPH (benign prostatic hyperplasia) CAD (coronary artery disease) COPD (chronic obstructive pulmonary disease) Dyslipidemia GERD (gastroesophageal reflux disease) HTN (hypertension) Hyponatremia NSTEMI (non-ST elevated myocardial infarction) NSTEMI (non-ST elevated myocardial infarction) NSTEMI (non-ST elevated myocardial infarction) CHANTELL (obstructive sleep apnea) Type 1 diabetes Surgical History H/O adenoidectomy History of hip replacement History of tonsillectomy Family History Other Cancer Diabetes Hypertension Social History Smoking Status: Former smoker Tobacco Type: Cigarettes Cigarettes Per Day: 30; Second Hand Exposure: No; Do You Dip or Chew Tobacco: No; Tobacco Cessation Education Requested by Patient: No Hx Alcohol Use: Yes Alcohol type: hard liquor Hx Substance Use: No Preferred Language: Icelandic Communication Ability: Effective Visual Impairment: No Limitations Hearing Ability: Normal Thresher Broomcorn Required: No Beliefs That Will Affect Care: None marital status: Current Living Situation: Spouse Other Information That Helps Us Care for You: No Feels Safe at Home: Yes Safety Concerns: Feels Safe At This Time Assistive Devices: CPAP and Glasses Physical Exam Physical Exam: Examination of the left hand reveals severe swelling, induration, and erythema along the entire length of the middle finger. There is gross purulent drainage from the tip of the finger and more proximally at the dorsal aspect of the PIP joint. There is gross necrosis at the tip of the finger distal to the DIP joint. No significant swelling, induration, or erythema extending into the palm. There are dry ulcerations at the tips of all 4 other digits in that left hand, as well as the majority of the remaining digits on his right hand. Results & Data ([facility]) Vital Signs (Past 12 Hours) Vital Signs Temp Pulse Pulse Resp BP Pulse Ox Pulse Ox 07/13/20 07:24 36.6 C 65 18 140/74 96 07/13/20 03:22 36.9 C 66 18 145/85 H 96 07/13/20 02:15 85 16 98 07/13/20 00:11 36.7 C 66 15 138/66 92 92 07/12/20 23:52 36.7 C 92 H 18 138/66 92 07/12/20 21:47 36.6 C 16 97 Laboratory Results Glucose upon admission noted to be 820. Hemoglobin A1c 10.6. Diagnostic Findings MRI of the left hand was reviewed. It shows obvious infection within the middle finger, with dorsal abscesses. It looks like there is fluid within the flexor tendon sheath as well. There is edema within the distal phalanges of all digits, possibly with the exception of the ring finger, consistent with osteomyelitis.
[2020-07-13] MEDS: DOCUSATE SODIUM/SENNA 50/8.6MG TAB PO SCH (09:41)
[2020-07-13] MEDS: FOLIC ACID 1 MG TAB PO SCH (09:41)
[2020-07-13] MEDS: amLODIPine BESYLATE 5 MG TAB PO SCH (09:41)
[2020-07-13] MEDS: FINASTERIDE 5 MG TAB PO SCH (09:41)
[2020-07-13] MEDS: GABAPENTIN 300 MG CAP PO SCH (09:41)
[2020-07-13] MEDS: METOPROLOL SUCC 25MG EXT REL TAB PO SCH (09:41)
[2020-07-13] MEDS: VENLAFAXINE HCL XR 75 MG CAPXR PO SCH (09:41)
[2020-07-13] MEDS: CEROVITE ADV FORMULA TAB PO SCH (09:41)
[2020-07-13] MEDS: PANTOprazole 40 MG TAB PO SCH (09:41)
[2020-07-13] MEDS: ASPIRIN 81 MG ECTAB PO SCH (09:42)
[2020-07-13 10:20] LABS: Influenza A virus by PCR Negative (Neg); Influenza B virus by PCR Negative (Neg); RSV by PCR Negative (Neg)
[2020-07-13 10:26] LABS: SARS CoV2 RNA(COVID-19) InHosp POSITIVE (Negative)
[2020-07-13] MEDS ORDERED: PROPOFOL IV EMULSION 10 MG/ML 20 ML VIAL IV ONE (11:43)
[2020-07-13] MEDS ORDERED: MIDAZOLAM HCL 1 MG/ML 2ML VIAL ONE (11:43)
[2020-07-13] MEDS ORDERED: LIDOCAINE HCL 2% 2 ML VIAL/AMP(20MG/ML) INFIL ONE (11:43)
[2020-07-13] MEDS ORDERED: ONDANSETRON INJ 2 MG/ML 2 ML VIAL ONE (13:11)
[2020-07-13] MEDS ORDERED: fentaNYL citrate 100 MCG/2 ML VIAL ONE (13:12)
[2020-07-13] MEDS ORDERED: BUPIVACAINE 0.5 % 5 MG/1 ML MPF 30ML VIAL ONE (13:48)
[2020-07-13] MEDS ORDERED: LIDOCAINE HCL 1% 20 ML VIAL ONE (13:48)
[2020-07-13] MEDS ORDERED: fentaNYL citrate 100 MCG/2 ML VIAL IV PRN (13:50)
[2020-07-13] MEDS ORDERED: FLUMAZENIL 0.1 MG/1 ML 10 ML VIAL IV PRN (13:50)
[2020-07-13] MEDS ORDERED: NALOXONE HCL 0.4 MG/1 ML VIAL/CARP IV PRN (13:50)
[2020-07-13] MEDS ORDERED: PROMETHAZINE HCL 12.5 MG in SODIUM CHLORIDE 0.9% 50 ML IV PRN (13:50)
[2020-07-13] MEDS ORDERED: ePHEDrine sulfate 50 MG/ML AMP IV PRN (13:50)
[2020-07-13] MEDS ORDERED: LABETALOL HCL IV 5 MG/ML 20ML IV PRN (13:50)
[2020-07-13] MEDS ORDERED: ATROPINE SULFATE 0.1 MG/ML 10ML SYR IV PRN (13:50)
--- NOTE | 2020-07-13 14:34 | Pharmacy Report ---
Glycemic Control Consultation - Date of Service July 13, 2020 - Scope Scope: Glycemic Pharmacist consulted for glycemic control and to write orders per [facility] inpatient glycemic control protocol. - Objective Weight: 110 kg [place]ks BSG (last 24hrs): 07/12/20 07/12/20 07/12/20 17:27 19:59 22:27 Glucose 820 H* POC Glucose 508 H* 537 H* 07/12/20 07/12/20 07/13/20 22:28 22:59 00:01 Glucose POC Glucose 545 H* 455 H* 399 H* 07/13/20 07/13/20 07/13/20 00:56 01:56 02:29 Glucose 182 H POC Glucose 280 H 240 H 07/13/20 07/13/20 07/13/20 03:17 04:12 05:08 Glucose POC Glucose 162 H 153 H 254 H 07/13/20 07/13/20 07/13/20 06:14 07:26 08:37 Glucose POC Glucose 131 H 128 H 105 H 07/13/20 07/13/20 10:07 11:38 Glucose POC Glucose 125 H 161 H Laboratory Data (last 24hrs): 07/12/20 07/13/20 17:27 02:29 Potassium 5.2 H 3.6 D Carbon Dioxide 22 27 Anion Gap 11.0 7.0 Creatinine 1.70 H 1.21 D Est Cr Clr Drug Dosing 55.7 79.8 Beta-Hydroxybutyric Acd 17.56 H HbA1c: Hemoglobin A1c 10.6 % (4.5-5.6) H 07/13/20 02:29 - Recent Pertinent Medications Outpatient Anti-diabetic Regimen: * Insulin pump with basal rate of 1.7 units/hr and CF of 21 CR of 5 * A1c = 10.6 % 07/13/20 The patient is currently receiving: * Basal insulin: Lantus 30 units x 1 Plus insulin infusion with drip rates around 5 units/hr * Correctional Insulin: Novolog Correction per scale ACHS Goal Range: Low 100 mg/dL - High 200 mg/dL Correction Factor: -- mg/dL/unit * Prandial insulin: Per carb ratio of 1 unit per (per insulin infusion) grams CHO consumed * Oral Agents: Risk Factors for Insulin Resistance: * Infection: daptomycin and Zosyn for finger cellulitis * Recent Surgery: planned surgery today * Diet: NPO - Assessment & Plan Assessment & Plan: ASSESSMENT: * Mr Hatfield is a 64 y/o M with a PMH of T1DM who presents with hand cellulitis. BSGs > 500 mg/dL on admission. The patient is on an insulin pump at home - this was stopped and insulin infusion started. * Lantus 30 units given x 1 around 0200. Plan for additional Lantus with dinner if BSGs > 120 mg/dL ... the patient's home insulin pump shows basal rate of 40.8 units/day. During previous hospitalization patient required around 60 units of basal per day with TDD around 140 units/day. Unsure if this admission will be different so will first attempt to meet home insulin pump basal and if needed will increase accordingly. * For tomorrow, plan for scale of Lantus with doses of 30-40 units qAM. * Novolog weight-based stress of 3. PLAN FOR INPATIENT GLYCEMIC CONTROL: * Basal insulin * Lantus 30 units SQ x 1 then 0-10 units tonight with dinner based upon BSG (0 units if BSG < 120 mg/dL; 5 units if BSG 120-160 mg/dL; 10 units if BSG > 160 mg/dL) * Lantus 30-40 units SQ qAM starting 07/14/20 (Lantus 30 units if BSG < 100 mg/dL; Lantus 35 units if BSG 100-120 mg/dL; Lantus 40 units if BSG > 120 mg/d) * Bolus insulin * NovoLog per scale ACHS or Q6hrs while NPO * Goal Range: Low 110 mg/dL - High 140 mg/dL * Correction Factor: 15 mg/dL/unit * Nutritional / Prandial insulin per carb ratio of 1 unit per 5 grams CHO consumed * Please note that the plan above was derived based on current level of insulin resistance and hospital stress. These recommendations are appropriate for inpatient admission only. Plan of care upon discharge will need to be reassessed to avoid potential outpatient hypo/hyperglycemia. Thank you.
--- NOTE | 2020-07-13 15:11 | Post Operative Brief Note ---
Immediate Post Op Note v1 Date of Surgery July 13, 2020 Pre & Post Diagnosis Operation Date: 07/13/20 12:30 Pre-Op Diagnosis: LEFT FINGER INFECTION Post-Op Diagnosis: LEFT FINGER INFECTION I identified the patient and participated in the time-out.: Yes Procedure Operation Date: 07/13/20 12:30 Actual Procedures p Left Middle Finger Amputation(Left) - Santana Lancaster M.D. Surgeon Santana Lancaster Fifth Grade Teacher None Estimated Blood Loss 50 Findings Consistent with Post-Op Diagnosis
--- NOTE | 2020-07-13 15:36 | Operative Report ---
Post Operative Report Pre & Post Diagnosis Operation Date: 07/13/20 12:30 Pre-Op Diagnosis: Left middle finger infection Post-Op Diagnosis: Left middle finger extensive infection with osteomyelitis and infectious tenosynovitis of the flexor and extensor tendons I identified the patient and participated in the time-out.: Yes Procedure Operation Date: 07/13/20 12:30 Actual Procedures Left Middle Finger Amputation at the metacarpal phalangeal joint level (17617) - Santana Lancaster M.D. Surgeon Santana Lancaster Upper Trimmer None Estimated Blood Loss 50 Findings Consistent with Post-Op Diagnosis Specimens Culture swab from left middle finger for Gram stain, aerobic culture, and anaerobic culture Left middle finger gross specimen Drains None Anesthesia Type MAC Complications none Disposition Disposition: Recovery Room Indications Mr. Hatfield is a 64-year-old male with extremely poorly controlled diabetes, with recurrent infections in all of his fingers. He developed a severe infection in the left middle finger over the past few weeks, with progressive worsening and gross, foul-smelling, purulent drainage. History, clinical exam, and imaging were consistent with the above diagnosis. Risks, benefits, and alternatives of surgery were explained in detail. The patient understood all this and wished to proceed. Description of Procedure Patient was taken directly into the operating room due to it is Covid positive status. He was identified in the operating room. Operative extremity was marked. MAC anesthesia was induced without complication. Digital blockade was performed in the palm with a 50/50 mixture of 1% lidocaine and 0.5% Marcaine without epinephrine. He had already received intravenous Zosyn on a scheduled basis, no further antibiotics were given. The hand was then prepped and draped in a standard sterile fashion using Betadine prep due to his open wounds. I first began with a finger tourniquet. His finger was too swollen for the standard finger tourniquet to be used, and I therefore cut a strip of the Esmarch bandage in place this around the proximal phalanx. The finger itself was not exsanguinated to prevent pushing any of the purulent fluid into the hand. The finger was then inspected. There was obvious severe necrosis of the fingertip distal to the DIP joint, with extremely friable and grossly necrotic dark tissue. There was copious purulent fluid tracking along the dorsal aspect of the middle phalanx and draining out of the very large sinus wound directly over the dorsal DIP joint. There is obviously purulent fluid extending along the dorsal aspect of the proximal phalanx. I decided to first attempt a salvage of the proximal phalanx by performing an amputation through the PIP joint. This was clearly the most distal level of amputation that would be feasible. I planned out a fishmouth incision at the level of the PIP joint. I then incised full-thickness skin flaps and dissected down to the extensor tendon dorsally, and flexor tendon volarly. I then incised through both tendons just proximal to the PIP joint and allowed them to retract. I then disarticulated the PIP joint and removed the necrotic distal and middle phalanges. I then used a rongeur to excise the distal condyles of the proximal phalangeal head. The distal edges of the bone were smoothed with the rongeur to prevent surrounding soft tissue irritation. I aggressively debrided the surrounding soft tissues and copiously irrigated the wound with sterile saline. There was clearly purulence still tracking along the flexor tendon, and especially dorsally along the extensor tendon. The infection along the extensor tendon clearly tracked back all the way to the base of the proximal phalanx. The dorsal skin of the proximal phalanx was extremely friable and significantly necrotic. I assessed for wound closure over the level of the PIP joint, and felt that this wound would not heal adequately with the condition of the dorsal skin, and he would very likely have persistent infection tracking into the volar and dorsal aspects of the finger and into the hand. I therefore decided at this point that he required amputation back at the level of the MCP joint. I therefore made a new incision more proximally at the level at the MCP joint. This was a racquet shaped incision extending longitudinally dorsally over the MCP joint. I kept the viable volar skin flap from the proximal phalanx intact for closure over the metacarpal head. I excised the extensor tendon at the level of the MCP joint and excised it distally. I very aggressively excised all tendinous and ligamentous tissue that could act as a persistent nidus for infection. Extensor tendon, lateral bands, collateral ligaments, volar plate, FDS tendon, and FDP tendon were all aggressively debrided back as proximal as possible. For the FDS and FDP tendons, traction was applied to the distal tendon, and that they were sharply resected as far proximal as possible and allowed to retract. I then dissected out the ulnar and radial digital nerves, and excised them about a centimeter proximal to the amputation level. The digital arteries were cauterized as distal as possible. The wound was then copiously irrigated with sterile saline. Tourniquet was removed, and hemostasis was achieved with bipolar electrocautery. Skin was then closed with 4-0 Prolene. I first closed the longitudinal incision over the dorsal aspect of the MCP joint, then closed the volar skin flap up to the dorsal skin over the distal aspect of the metacarpal head. The skin edges were trimmed and contoured as necessary to prevent large "dog ear" flaps at the corners. Sterile dressings were applied with Xeroform, sterile cling wrap, and Coban. The drapes were removed, the patient was awakened from anesthesia and taken directly back to his room in stable condition. There were no immediate complications from the procedure. I was present and scrubbed for the entire procedure. I attest to the content of the Intraoperative Record and any orders documented therein. Any exceptions are noted below.
--- NOTE | 2020-07-13 15:47 | Anesthesiology Progress Note ---
Date of Service July 13, 2020 Anesthesia Post Procedure Vital Signs Vital Signs: Temp Pulse Pulse Resp BP BP Pulse Ox 07/13/20 15:13 18 95 07/13/20 11:35 36.8 C 70 20 133/66 93 07/13/20 07:24 36.6 C 65 18 140/74 96 07/13/20 06:25 65 07/13/20 03:22 36.9 C 66 18 145/85 H 96 07/13/20 02:15 85 16 98 07/13/20 00:11 36.7 C 66 15 138/66 92 07/12/20 23:52 36.7 C 92 H 18 138/66 92 07/12/20 21:47 36.6 C 16 97 07/12/20 15:54 37.0 C 85 18 117/74 97 Pulse Ox 07/13/20 15:13 07/13/20 11:35 07/13/20 07:24 07/13/20 06:25 07/13/20 03:22 07/13/20 02:15 07/13/20 00:11 92 07/12/20 23:52 07/12/20 21:47 07/12/20 15:54 Transfer of Care Handoff Completed per policy Notes Mental Status: alert / awake / arousable Patient Amnestic to Procedure: Yes Nausea / Vomiting: adequately controlled Pain: adequately controlled Airway Patency, RR, SpO2: stable & adequate BP & HR: stable & adequate Hydration State: stable & adequate Anesthetic Complications: no major complications apparent
[2020-07-13] MEDS: DAPTOmycin 450 MG in SYRINGE 0 ML IV SCH (16:17)
[2020-07-13] MEDS ORDERED: INSULIN GLARGINE SOLOSTAR 100 UNITS/ML 3 ML PEN SC SCH (16:30)
[2020-07-13] MEDS ORDERED: DAPTOmycin 300 MG in SYRINGE 0 ML IV SCH (18:00)
[2020-07-14] MEDS: INSULIN ASPART 100 UNITS/ML 3 ML PEN SC SCH ×6 (00:01→21:33)
[2020-07-14] MEDS: PIPERACILLIN/TAZOBACTAM 4.5 GM in DEXTROSE 5% 100 ML IV SCH ×3 (03:25→17:25)
[2020-07-14] MEDS: HEPARIN SOD 5,000 UNIT/0.5 ML VIAL SQ SCH ×3 (06:04→21:32)
[2020-07-14] MEDS: LEVOTHYROXINE SODIUM 125 MCG TABLET PO SCH (06:05)
[2020-07-14] MEDS: NSS + 20MEQ KCL 20 MEQ/1,000 ML BAG IV SCH (06:08)
[2020-07-14] MEDS ORDERED: INSULIN ASPART 100 UNITS/ML 3 ML PEN SC ONE (07:45)
[2020-07-14 07:48] LABS: Basophils # (auto) 0.05 K/uL (0-0.2); Basophils % (auto) 0.6 %; Eosinophils # (auto) 0.19 K/uL (0-0.5); Eosinophils % (auto) 2.2 %; Hematocrit (blood only) 30.4 % (42-52); Hemoglobin 10.2 g/dL (14.0-18.0); Immature Granulocytes # (auto) 0.05 K/uL (0.00-0.02); Immature Granulocytes % (auto) 0.6 %; Lymphocytes # (auto) 1.02 K/uL (1.2-3.4); Mean Corpuscular Hemoglobin 30.4 pg (25-34); Mean Corpuscular Hgb Conc 33.6 g/dL (32-36); Mean Corpuscular Volume 90.7 fL (80-100); Mean Platelet Volume 9.9 fL (7.4-10.4); Monocytes # (auto) 0.95 K/uL (0.11-0.59); Monocytes % (auto) 11.2 %; Neutrophils # (auto) 6.26 K/uL (1.4-6.5); Neutrophils % (auto) 73.4 %; Platelet Count 544 K/uL (130-400); RDW Coefficient of Variation 16.8 % (11.5-14.5); RDW Standard Deviation 55.7 fL (36.4-46.3); Red Blood Count 3.35 M/uL (4.7-6.1); White Blood Count 8.52 K/uL (4.8-10.8)
[2020-07-14 08:21] LABS: Albumin Globulin Ratio 0.4 (0.9-2); Albumin Level 1.9 gm/dl (3.4-5.0); BUN Creatinine Ratio 12.2 (10-20); Bilirubin,Total 0.4 mg/dl (0.2-1); Calcium 9.1 mg/dl (8.5-10.1); Creatinine Clr Calc Pharmacy 90.3 ml/min; Est GFR (African American) 85.8; Globulin 5.1 gm/dl (2.5-4.0)
--- NOTE | 2020-07-14 08:21 | Hospitalist Progress Note ---
Date of Service July 14, 2020 Assessment & Plan (1) Cellulitis of hand: Osteomyelitis on MRI Sepsis Pt is 64 y/o M with PMH uncontrolled Type 1 DM, hypothyroidism, CHANTELL on CPAP, asthma, HTN, CAD, GERD, Obesity, NSTEMI presented to ER with complaint of left index, middle, and 5th finger erythema x 3-4 weeks. In ER patient afebrile, vitals stable. WBC: 11, lactic acid: 2.6, procalcitonin 0.2 -In ER given Zosyn, daptomycin, 1 L NSS -Continue Zosyn and daptomycin -Pending blood cultures -Repeat lactic acid -MRI hand + OM -Ortho on case, s/p Left Middle Finger Amputation at the metacarpal phalangeal joint level - Santana Lancaster MD 07/13/20 -Monitor Labs. (2) KRISTIN (acute kidney injury): Cr: 1.07. -Stop IV fluids -Monitor renal functions, avoid nephrotoxic agents when possible -Resume Lasix and Losartan (3) Hyperglycemia: (4) Type 1 diabetes: History uncontrolled diabetes. Patient recently with insulin pump A1c: 9.3 in 04/2019 In ER random glucose 820. Beta hydroxybutyric acid: 17. Normal anion gap, does not appear to be in DKA Glycemic pharmacist to assist Pseudohyponatremia Sodium 134 corrected for glucose 820 Hyperkalemia Expect will decrease with insulin Repeat BMP (5) COVID-19: History of cough for 2 weeks. Had positive COVID-19 testing 07/04/2020 outpatient Cough is improved. No tachycardia or hypoxia. Isolation precautions (6) History of non-ST elevation myocardial infarction (NSTEMI): History negative stress test in 02/2020. History of cardiac cath 2016. Medical management. Patient denies chest pain Hold Plavix and aspirin, resume on DC. Continue metoprolol (7) HTN (hypertension): BP stable Resume Losartan Continue Amlodipine and Metoprolol (8) Hypothyroidism: Continue levothyroxine DVT Prophylaxis -Heparin SQ Full Code Labs Checked DC when OK c Ortho, DC abx on DC ROS-No Headache, No Visual Changes, No Nausea, No Vomiting, No Fever, No Chills, No Neck Pain or Stiffness, No Chest Pain, No Palpitations, No SOB, No BOGGS, No Cough, No Sputum, No Wheezing, No Abdominal Pain, No Diarrhea, No Hematemesis, No Hemoptysis, No Unexpected Weight Loss, No Flank pain, No Melena, No Hematochezia, No Frequency, No Urgency, No Burning, No Hematuria, No Rashes, No Diaphoresis. Appetite is Normal Physical Exam Gen-AAO x 3, NAD, Afebrile Head-NCAT, EOMI, PERRLA, Anicteric Sclera, No Posterior Pharyngeal Erythema Neck-Supple, No JVD, No Thyromegaly, No Masses, No LAD, No Bruits Lungs-Clear to Auscultation Bilaterally, No Rales, No Rhonchi, No Wheezing, No Crepitus Chest-No S4, +S1, +S2, No S3, No Murmurs, No Rubs, No Gallops, No Ectopy Abdomen-Soft, Bowel Sounds Present, Non Tender, Non Distended, No Hepatomegaly, No Splenomegaly, No Palpable Masses, No Rebound, No Rigidity, No Guarding Musculoskeletal-Full Range of Motion Bilaterally, No CVAT Extremities-No Cyanosis, No Clubbing, No Edema, Left Hand deformity, L 3rd finger amputated Nuero-Cranial Nerves II-XII grossly intact, Motor WNL, DTRs WNL, Strength WNL, Non Focal Psych-Normal Mood Admission and Anticipated Discharge Date Admission Date: July 12, 2020 Results & Data Results & Data ([facility]) Vital Signs (Past 12 Hours) Vital Signs Temp Pulse Pulse Resp BP Pulse Ox Pulse Ox 07/14/20 07:46 36.5 C 67 22 154/82 H 93 07/14/20 04:22 36.5 C 69 20 148/86 H 95 07/14/20 00:11 95 07/13/20 23:35 36.7 C 80 20 128/76 94 07/13/20 22:38 82 18 95
[2020-07-14] MEDS: GABAPENTIN 300 MG CAP PO SCH (08:59)
[2020-07-14] MEDS: VENLAFAXINE HCL XR 75 MG CAPXR PO SCH (08:59)
[2020-07-14] MEDS: amLODIPine BESYLATE 5 MG TAB PO SCH (08:59)
[2020-07-14] MEDS: ASPIRIN 81 MG ECTAB PO SCH (08:59)
[2020-07-14] MEDS: FINASTERIDE 5 MG TAB PO SCH (09:00)
[2020-07-14] MEDS: PANTOprazole 40 MG TAB PO SCH (09:00)
[2020-07-14] MEDS: FOLIC ACID 1 MG TAB PO SCH (09:00)
[2020-07-14] MEDS: CEROVITE ADV FORMULA TAB PO SCH (09:00)
[2020-07-14] MEDS: METOPROLOL SUCC 25MG EXT REL TAB PO SCH (09:00)
[2020-07-14] MEDS: DOCUSATE SODIUM/SENNA 50/8.6MG TAB PO SCH (09:00)
[2020-07-14] MEDS: INSULIN GLARGINE SOLOSTAR 100 UNITS/ML 3 ML PEN SC SCH (09:03)
[2020-07-14] MEDS: ATORVASTATIN 40 MG TAB PO SCH (10:26)
[2020-07-14] MEDS: FUROSEMIDE 40 MG TAB PO SCH (10:26)
[2020-07-14] MEDS: LOSARTAN POTASSIUM 50 MG TAB PO SCH ×2 (10:26→21:33)
--- NOTE | 2020-07-14 10:58 | Pharmacy Report ---
Glycemic Control Progress Note - Date of Service July 14, 2020 - Scope Glycemic Pharmacist consulted for glycemic control to write orders per [facility] inpatient glycemic control protocol. - Objective Accuchecks BSG(last 24 hours):: 07/13/20 07/13/20 07/13/20 11:38 16:38 21:08 Glucose POC Glucose 161 H 235 H 317 H* 07/13/20 07/13/20 07/14/20 21:09 23:56 04:21 Glucose POC Glucose 300 H 322 H* 255 H 07/14/20 07/14/20 06:26 07:45 Glucose 192 H POC Glucose 185 H HbA1c:: Hemoglobin A1c 10.6 % (4.5-5.6) H 07/13/20 02:29 - Recent Pertinent Medications The patient is currently receiving: * Basal insulin: Lantus 30 units around 0200 on 07/13 then 10 units at dinnertime on 07/13/20 * Correctional Insulin: Novolog Correction per scale ACHS Goal Range: Low 110 mg/dL - High 140 mg/dL Correction Factor: 15 mg/dL/unit * Prandial insulin: Per carb ratio of 1 unit per 5 grams CHO consumed - Outpatient Anti-Diabetic Meds Insulin pump basal rate = 1.7 units/hr (total of 41 units/day) CF = 21 CR = 5 - Assessment & Plan ASSESSMENT: * See progress note from 07/13/20 for more background info, in short: * Pt receiving SQ basal bolus insulin regimen for hyperglycemia secondary to baseline DM (outpatient regimen on hold). Patient on daptomycin and Zosyn for osteomyelitis. Patient is POD 1. * Patient is currently receiving an average of 87 units of insulin per day * 40 units of basal insulin * 47 units of prandial/correctional insulin * BSGs ranging 161 - 317 mg/dl over the past 24hrs * Changes needed to insulin regimen: * AM Fasting BSG = 185 mg/dl. This is slightly above goal range for patient based on inpatient targets and co-morbidities. The patient also received an additional 21 units of Novolog overnight. Expect that a lot of this was because patient was "behind" on basal insulin (given at 0200 on 07/13/20 instead of 0900 plus remaining basal not given until dinnertime). Patient did not receive steroids during surgery. Will stay with Lantus 40 units today. Higher dose available tomorrow if BSGs remain elevated. * Post-prandial BSGs did trend upwards yesterday. Will tighten CR slightly. Continue current CF as more basal added today. * Total daily dose = ~90-100 units. Increased insulin appropriately. PLAN FOR INPATIENT GLYCEMIC CONTROL: * Increasing Lantus to 40 units SQ daily (scale for 07/15/20 with doses ranging 35-50 units) * Continuing correction factor of 15 mg/dl/unit * TIGHTENING carb ratio to 1 unit per 4 grams CHO consumed * Continuing goal range of Low 110 mg/dL - High 140 mg/dL * Please note that the plan above was derived based on current level of insulin resistance and hospital stress. These recommendations are appropriate for inpatient admission only. Plan of care upon discharge will need to be reassessed to avoid potential outpatient hypo/hyperglycemia. Thank you.
--- NOTE | 2020-07-14 11:05 | Orthopedic Progress Note ---
Date of Service July 14, 2020 Assessment & Plan (1) Osteomyelitis of finger of left hand: Postoperative day #1 status post left middle finger amputation at the MCP joint for extensive infection and necrosis. He is currently receiving IV Zosyn and daptomycin. Intraoperative culture still pending. -Daily dressing change starting tomorrow. -May be discharged when stable from a medicine perspective, and outpatient antibiotics are arranged. -He still has chronic osteomyelitis at the tips of almost all digits as seen on the preoperative MRI. He has dry necrotic ulcers on the tips of almost all of his digits in both hands. We had a very lengthy and manju discussion regarding his situation and long-term plans. I stressed to him that he needs to do a much better job at controlling his blood glucose levels. It is obviously been way out of control recently, leading to this severe acute infection. He has very poor blood flow to his fingertips, leading to chronic ulcers that most fingertips and chronic osteomyelitis at the distal phalanges of most fingers. I advised him that with his poor blood flow, it is not terribly likely that he will be able to eradicate the osteomyelitis with IV antibiotics. He will likely require amputation of most of his fingertips, but this is essentially an elective procedure at this point. I think he should probably be on antibiotics to keep the infection under control and prevent it from developing into a severe infection like what just happened with his middle finger. We can then perform amputations of his fingertips as necessary on an elective basis. However, he needs to have his blood glucose under control before proceeding with any elective surgery. I had a very lengthy and manju discussion with him today, as well as his yesterday regarding his blood glucose control. If he does not get it under control, he will likely have further severe infections that could lead to . Also complicating factors is his Covid positive status. He says he was first diagnosed with a test run at [facility] on July 05. He was symptomatic at that time. This therefore precludes any elective surgical intervention for 8-10 weeks from the time of diagnosis based on anesthesia guidelines since he was symptomatic and is diabetic. Follow-up in my clinic in 10 to 14 days for wound check and suture removal, and discussion of further plans for intervention on his other digits. Admission and Anticipated Discharge Date Admission Date: July 12, 2020 Subjective Patient doing well. Denies any pain in his left hand. Physical Exam Physical Exam: Examination left hand reveals that his postoperative dressings are clean, dry, and intact. He has good finger range of motion in the remaining digits. He continues to have dry ulcers at the tips of most digits. Results & Data ([facility]) Vital Signs (Past 12 Hours) Vital Signs Temp Pulse Resp BP Pulse Ox Pulse Ox 07/14/20 07:46 36.5 C 67 22 154/82 H 93 07/14/20 04:22 36.5 C 69 20 148/86 H 95 07/14/20 00:11 95 07/13/20 23:35 36.7 C 80 20 128/76 94 Laboratory Results Intraoperative cultures are still pending. Gram stain showed gram-positive cocci and gram-negative bacilli.
--- NOTE | 2020-07-14 11:06 | Electrocardiogram Report ---
Test Reason : Blood Pressure : / mmHG Vent. Rate : 074 BPM Atrial Rate : 074 BPM P-R Int : 202 ms QRS Dur : 092 ms QT Int : 412 ms P-R-T Axes : 048 040 023 degrees QTc Int : 457 ms Poor data quality, interpretation may be adversely affected Normal sinus rhythm Normal ECG When compared with ECG of 18-MAY-2018 06:24, No significant change was found Confirmed by Shin Casillas ([id number]) on 07/14/2020 11:05:56 AM Referred By: REFERRED SELF Confirmed By:Shin Casillas
[2020-07-14] MEDS ORDERED: INSULIN GLARGINE SOLOSTAR 100 UNITS/ML 3 ML PEN SC ONE (12:00)
[2020-07-14] MEDS: DAPTOmycin 450 MG in SYRINGE 0 ML IV SCH (17:26)
[2020-07-14] MEDS: TAMSULOSIN HCL 0.4 MG CAP PO SCH (21:33)
[2020-07-15] MEDS: PIPERACILLIN/TAZOBACTAM 4.5 GM in DEXTROSE 5% 100 ML IV SCH ×3 (03:26→17:05)
[2020-07-15] MEDS: HEPARIN SOD 5,000 UNIT/0.5 ML VIAL SQ SCH ×3 (06:32→21:18)
[2020-07-15] MEDS: LEVOTHYROXINE SODIUM 125 MCG TABLET PO SCH (06:33)
[2020-07-15 07:10] LABS: Hematocrit (blood only) 32.4 % (42-52); Hemoglobin 10.6 g/dL (14.0-18.0); Mean Corpuscular Hemoglobin 30.3 pg (25-34); Mean Corpuscular Hgb Conc 32.7 g/dL (32-36); Mean Corpuscular Volume 92.6 fL (80-100); Mean Platelet Volume 9.7 fL (7.4-10.4); Platelet Count 485 K/uL (130-400); RDW Coefficient of Variation 16.7 % (11.5-14.5); RDW Standard Deviation 55.8 fL (36.4-46.3); White Blood Count 7.65 K/uL (4.8-10.8)
[2020-07-15 07:37] LABS: Calcium 8.9 mg/dl (8.5-10.1); Est GFR (African American) 80.3; Est GFR (Non-African American) 69.3; Potassium 3.8 mmol/L (3.5-5.1)
--- NOTE | 2020-07-15 07:51 | Anesthesiology Progress Note ---
Date of Service July 15, 2020 Anesthesia Post Procedure Vital Signs Vital Signs: Temp Pulse Pulse Pulse Resp BP Pulse Ox 07/15/20 07:37 37.2 C 68 18 152/77 H 94 07/15/20 07:00 59 L 07/15/20 04:22 37.0 C 62 18 128/70 93 07/15/20 02:29 64 16 93 07/15/20 00:00 07/14/20 23:56 36.7 C 64 18 141/78 H 93 07/14/20 22:58 68 16 94 07/14/20 19:40 37.2 C 71 18 155/82 H 94 07/14/20 19:00 37.2 C 66 15 135/65 92 07/14/20 15:54 36.6 C 74 20 140/79 92 07/14/20 14:25 84 07/14/20 11:46 36.6 C 74 20 118/78 95 Pulse Ox 07/15/20 07:37 07/15/20 07:00 07/15/20 04:22 07/15/20 02:29 07/15/20 00:00 90 07/14/20 23:56 07/14/20 22:58 07/14/20 19:40 07/14/20 19:00 07/14/20 15:54 07/14/20 14:25 07/14/20 11:46 Notes Mental Status: alert / awake / arousable and participated in evaluation Patient Amnestic to Procedure: Yes Nausea / Vomiting: adequately controlled Pain: adequately controlled Airway Patency, RR, SpO2: stable & adequate BP & HR: stable & adequate Hydration State: stable & adequate Anesthetic Complications: no major complications apparent
[2020-07-15] MEDS: DOCUSATE SODIUM/SENNA 50/8.6MG TAB PO SCH (08:40)
[2020-07-15] MEDS: FINASTERIDE 5 MG TAB PO SCH (08:40)
[2020-07-15] MEDS: LOSARTAN POTASSIUM 50 MG TAB PO SCH ×2 (08:40→21:18)
[2020-07-15] MEDS: FUROSEMIDE 40 MG TAB PO SCH (08:40)
[2020-07-15] MEDS: PANTOprazole 40 MG TAB PO SCH (08:40)
[2020-07-15] MEDS: METOPROLOL SUCC 25MG EXT REL TAB PO SCH (08:41)
[2020-07-15] MEDS: ATORVASTATIN 40 MG TAB PO SCH (08:41)
[2020-07-15] MEDS: CEROVITE ADV FORMULA TAB PO SCH (08:41)
[2020-07-15] MEDS: VENLAFAXINE HCL XR 75 MG CAPXR PO SCH (08:41)
[2020-07-15] MEDS: ASPIRIN 81 MG ECTAB PO SCH (08:41)
[2020-07-15] MEDS: FOLIC ACID 1 MG TAB PO SCH (08:41)
[2020-07-15] MEDS: GABAPENTIN 300 MG CAP PO SCH (08:41)
[2020-07-15] MEDS: amLODIPine BESYLATE 5 MG TAB PO SCH (08:41)
[2020-07-15] MEDS: INSULIN ASPART 100 UNITS/ML 3 ML PEN SC SCH ×5 (08:42→21:19)
--- NOTE | 2020-07-15 09:00 | Hospitalist Progress Note ---
Date of Service July 15, 2020 Assessment & Plan (1) Cellulitis of hand: Osteomyelitis on MRI Sepsis Pt is 64 y/o M with PMH uncontrolled Type 1 DM, hypothyroidism, CHANTELL on CPAP, asthma, HTN, CAD, GERD, Obesity, NSTEMI presented to ER with complaint of left index, middle, and 5th finger erythema x 3-4 weeks. In ER patient afebrile, vitals stable. WBC: 11, lactic acid: 2.6, procalcitonin 0.2 -In ER given Zosyn, daptomycin, 1 L NSS -Continue Zosyn and daptomycin -Cultures +Staph, GNB -MRI hand + OM -Ortho on case, s/p Left Middle Finger Amputation at the metacarpal phalangeal joint level - Santana Lancaster MD 07/13/20 -Monitor Labs. US guided Peripheral, ID input on Abx -Needs OP ID appointment to follow labs (2) KRISTIN (acute kidney injury): -Off IV fluids -Monitor renal functions, avoid nephrotoxic agents when possible -Resume Lasix and Losartan (3) Hyperglycemia: (4) Type 1 diabetes: History uncontrolled diabetes. Patient recently with insulin pump A1c: 9.3 in 04/2019 In ER random glucose 820. Beta hydroxybutyric acid: 17. Normal anion gap, does not appear to be in DKA Glycemic pharmacist to assist Pseudohyponatremia Sodium 134 corrected for glucose 820 Hyperkalemia Expect will decrease with insulin Repeat BMP (5) COVID-19: History of cough for 2 weeks. Had positive COVID-19 testing 07/04/2020 outpatient Cough is improved. No tachycardia or hypoxia. Isolation precautions (6) History of non-ST elevation myocardial infarction (NSTEMI): History negative stress test in 02/2020. History of cardiac cath 2016. Medical management. Patient denies chest pain Hold Plavix and aspirin, resume on DC. Continue metoprolol (7) HTN (hypertension): BP stable Resume Losartan Continue Amlodipine and Metoprolol (8) Hypothyroidism: Continue levothyroxine DVT Prophylaxis -Heparin SQ Full Code Labs Checked DC when antibiotic regimen established ROS-No Headache, No Visual Changes, No Nausea, No Vomiting, No Fever, No Chills, No Neck Pain or Stiffness, No Chest Pain, No Palpitations, No SOB, No BOGGS, No Cough, No Sputum, No Wheezing, No Abdominal Pain, No Diarrhea, No Hematemesis, No Hemoptysis, No Unexpected Weight Loss, No Flank pain, No Melena, No Hematochezia, No Frequency, No Urgency, No Burning, No Hematuria, No Rashes, No Diaphoresis. Appetite is Normal Physical Exam Gen-AAO x 3, NAD, Afebrile Head-NCAT, EOMI, PERRLA, Anicteric Sclera, No Posterior Pharyngeal Erythema Neck-Supple, No JVD, No Thyromegaly, No Masses, No LAD, No Bruits Lungs-Clear to Auscultation Bilaterally, No Rales, No Rhonchi, No Wheezing, No Crepitus Chest-No S4, +S1, +S2, No S3, No Murmurs, No Rubs, No Gallops, No Ectopy Abdomen-Soft, Bowel Sounds Present, Non Tender, Non Distended, No Hepatomegaly, No Splenomegaly, No Palpable Masses, No Rebound, No Rigidity, No Guarding Musculoskeletal-Full Range of Motion Bilaterally, No CVAT Extremities-No Cyanosis, No Clubbing, No Edema, Left Hand deformity, L 3rd finger amputated Nuero-Cranial Nerves II-XII grossly intact, Motor WNL, DTRs WNL, Strength WNL, Non Focal Psych-Normal Mood Admission and Anticipated Discharge Date Admission Date: July 12, 2020 Results & Data Results & Data ([facility]) Vital Signs (Past 12 Hours) Vital Signs Temp Pulse Pulse Pulse Resp BP Pulse Ox 07/15/20 07:37 37.2 C 68 18 152/77 H 94 07/15/20 07:00 59 L 07/15/20 04:22 37.0 C 62 18 128/70 93 07/15/20 02:29 64 16 93 07/15/20 00:00 07/14/20 23:56 36.7 C 64 18 141/78 H 93 07/14/20 22:58 68 16 94 Pulse Ox 07/15/20 07:37 07/15/20 07:00 07/15/20 04:22 07/15/20 02:29 07/15/20 00:00 90 07/14/20 23:56 07/14/20 22:58
[2020-07-15] MEDS: INSULIN GLARGINE SOLOSTAR 100 UNITS/ML 3 ML PEN SC SCH (09:11)
--- NOTE | 2020-07-15 12:01 | Pharmacy Report ---
Pharmacy Glycemic Short Note 2 - Date of Service July 15, 2020 - Glycemic Short BSG Results (Last 24 hours): 07/14/20 07/14/20 07/15/20 16:21 21:14 06:20 Glucose 213 H POC Glucose 319 H* 166 H 07/15/20 07:36 Glucose POC Glucose 274 H OUTPATIENT ANTIDIABETIC REGIMEN: * Novolog insulin pump: * Basal Rate 1.7 units/hr (40.8units per day) * Correction Factor 21mg/dL/unit * Carb Ratio 1 unit per 5gm CHO consumed ASSESSMENT: * Poorly controlled type 1 diabetic admitted for cellulitis / osteomyelitis of fingers * Insulin pump has been turned off and he has been transitioned to SQ basal /bolus regimen using Lantus + Novolog * Fasting BSG elevated this AM (FBS 274) w/ 40 units basal on board. Will continue to up-titrate. If his fasting AM BSG remains elevated despite upwards titration we may need to split basal BID due to "wearing off" overnight * Per previous admission data, pt appears to require less insulin second half of the day, will use larger Novolog doses w/ breakfast + lunch and smaller doses with dinner and HS PLAN FOR INPATIENT GLYCEMIC CONTROL: * Hold insulin pump * Basal insulin * Lantus Q AM per scale: * 40 units if BSG less than 110 * 50 units if BSG 110-140 * 55 units if BSG greater than 140 * Bolus insulin * NovoLog per scale ACHS or Q6hrs while NPO * Goal Range: Low 110 mg/dL - High 140 mg/dL * Correction Factor: 15 mg/dL/unit w/ breakfast and lunch; 20mg/dL/unit with dinner and HS * Nutritional / Prandial insulin per carb ratio of 1 unit per 3 grams CHO consumed w/ breakfast and lunch, 1 unit per 4gm CHO consumed w/ dinner PLAN FOR DISCHARGE: * to be determined
[2020-07-15] MEDS: DAPTOmycin 450 MG in SYRINGE 0 ML IV SCH (18:06)
[2020-07-15] MEDS: TAMSULOSIN HCL 0.4 MG CAP PO SCH (21:18)
[2020-07-16] MEDS: PIPERACILLIN/TAZOBACTAM 4.5 GM in DEXTROSE 5% 100 ML IV SCH ×2 (02:04→09:36)
[2020-07-16] MEDS: HEPARIN SOD 5,000 UNIT/0.5 ML VIAL SQ SCH (05:41)
[2020-07-16] MEDS: LEVOTHYROXINE SODIUM 125 MCG TABLET PO SCH (05:42)
--- NOTE | 2020-07-16 08:01 | Discharge Summary ---
Date of Service July 16, 2020 Admission HPI Per Admitting Provider Pt is 64 y/o M with PMH uncontrolled Type 1 DM, hypothyroidism, CHANTELL on CPAP, asthma, HTN, CAD, GERD, Obesity, NSTEMI presented to ER with complaint of left finger erythema. Patient states 3 to 4 weeks ago noticed left index and middle and fifth finger with erythema and edema. Fingers tips of those fingers progressed to peeling and with purulent drainage. Patient states left middle finger worse and turned black color. Has neuropathy and denies any pain. He started doxycycline 5 days ago without significant improvement. Denies fevers or chills or nausea or vomiting. Denies red streaking. Patient reports had a cough for approximately 2 weeks and was tested for Covid on 07/04/2020 which was positive. He reports his cough has been improving. He reports chronic shortness of breath at baseline but denies any increased shortness of breath. Denies chest pain, loss of taste or smell. 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 Denies diaphoresis, N/V/D/C, HARDEN, dizziness, syncope, vision changes, neck pain, CP, SOB, orthopnea, palpitations, hemoptysis, sore throat, choking, otalgia, rhinorrhea, abdominal pain, paresthesias, weakness, extremity weakness, other extremity edema, rashes, urinary symptoms. Had negative stress echo in 02/2020 Admission Exam Per Admitting Provider General Appearance:Moderately built and nourished, no apparent distress Head: normocephalic, Atraumatic Eyes: normal inspection, EOMI, PERRL Neck: supple, Trachea midline Respiratory/Chest: Decreased breath sounds, CTA, No accessory muscle use Cardiovascular: S1, S2, No murmur Abdomen/GI:Soft, Non tender, Bowel sounds present, +Insulin pump Extremities/Musculoskelatal:normal inspection, no edema, LUE: Left hand erythema, edematous, left middle digit swollen, erythematous, purulent, left index finger whitish, RUE: S/P index finger amputated Neurologic/Psych:AAOX3, grossly no focal neurological deficits Skin:normal color,warm Principal Diagnosis (1) Cellulitis of hand: (2) KRISTIN (acute kidney injury): (3) Hyperglycemia: (4) Type 1 diabetes: (5) COVID-19: (6) History of non-ST elevation myocardial infarction (NSTEMI): (7) HTN (hypertension): (8) Hypothyroidism: Discharge Exam See below Discharge Data Allergies Allergy/AdvReac Type Severity Reaction Status Date / Time DEIDRE Inhibitors AdvReac Unknown Cough Verified 07/12/20 19:04 Consultations 07/12/20 17:11 ED Decision to Admit Stat 07/13/20 00:11 Consult Case Management - Discharge Planning Routine 07/13/20 07:00 Consult Orthopedic Surgery Routine 07/15/20 08:54 Consult Infectious Diseases Routine Procedures Performed Operation Date: 07/13/20 12:30 Actual Procedures p Left Middle Finger Amputation and debridement(Left) - Santana Lancaster M.D. Ordered Studies 07/12/20 16:57 MR hand LT wo con Stat Current Diagnoses Hypothyroidism, unspecified (07/12/20) Type 1 diabetes mellitus without complications (07/12/20) Essential (primary) hypertension (07/12/20) Old myocardial infarction (07/12/20) Cellulitis of unspecified part of limb (07/12/20) Osteomyelitis, unspecified (07/12/20) Acute kidney failure, unspecified (07/12/20) Hyperglycemia, unspecified (07/12/20) COVID-19 (07/12/20) Allergies DEIDRE Inhibitors Adverse Reaction (Unknown, Verified 07/12/20 19:04) Cough Height/Weight/Isolation Height 5 ft 11 in Weight 114.8 kg Isolation Type Airborne Precautions,Contact Precautions Chemistry 07/14/20 07/15/20 06:26 06:20 Sodium 137 135 L Potassium 4.0 3.8 Chloride 103 100 Carbon Dioxide 25 25 Anion Gap 9.0 10.0 BUN 13 9 Creatinine 1.07 1.13 Glucose 192 H 213 H Microbiology 07/13/20 Unknown Finger,Left Middle Gram Stain - Final 07/13/20 Unknown Finger,Left Middle Aerobic and Anaerobic Culture - Preliminary Staphylococcus species 07/12/20 17:15 Blood Aerobic Blood Culture - Preliminary No growth in Aerobic bottle after 48 hours. 07/12/20 17:15 Blood Anaerobic Blood Culture - Preliminary No growth in Anaerobic bottle after 48 hours. 07/12/20 17:27 Blood Aerobic Blood Culture - Preliminary No growth in Aerobic bottle after 48 hours. 07/12/20 17:27 Blood Anaerobic Blood Culture - Preliminary No growth in Anaerobic bottle after 48 hours. Diabetes Follow up Diabetes Follow-up Needed for HgbA1c >9% Hospital Course (1) Cellulitis of hand: Osteomyelitis on MRI Sepsis Pt is 64 y/o M with PMH uncontrolled Type 1 DM, hypothyroidism, CHANTELL on CPAP, asthma, HTN, CAD, GERD, Obesity, NSTEMI presented to ER with complaint of left index, middle, and 5th finger erythema x 3-4 weeks. In ER patient afebrile, vitals stable. WBC: 11, lactic acid: 2.6, procalcitonin 0.2 -In ER given Zosyn, daptomycin, 1 L NSS -DC on Clindamycin for 10 days -Cultures +Staph, GNB, Will DC on Clinda for now -MRI hand + OM -Ortho on case, s/p Left Middle Finger Amputation at the metacarpal phalangeal joint level - Santana Lancaster MD 07/13/20 -ID input on Abx, DC on PO Clinda for 10 days (2) KRISTIN (acute kidney injury): -Off IV fluids -Monitor renal functions, avoid nephrotoxic agents when possible -Resume Lasix and Losartan (3) Hyperglycemia: (4) Type 1 diabetes: History uncontrolled diabetes. Patient recently with insulin pump A1c: 9.3 in 04/2019 In ER random glucose 820. Beta hydroxybutyric acid: 17. Normal anion gap, does not appear to be in DKA Glycemic pharmacist to assist Pseudohyponatremia Sodium 134 corrected for glucose 820 Hyperkalemia Expect will decrease with insulin Repeat BMP (5) COVID-19: History of cough for 2 weeks. Had positive COVID-19 testing 07/04/2020 outpatient Cough is improved. No tachycardia or hypoxia. Off Isolation precautions (6) History of non-ST elevation myocardial infarction (NSTEMI): History negative stress test in 02/2020. History of cardiac cath 2015. Medical management. Patient denies chest pain Resume Plavix and aspirin on DC. Continue metoprolol (7) HTN (hypertension): BP stable Resume Losartan Continue Amlodipine and Metoprolol (8) Hypothyroidism: Continue levothyroxine DVT Prophylaxis -Heparin SQ Full Code Labs Checked DC home today ROS-No Headache, No Visual Changes, No Nausea, No Vomiting, No Fever, No Chills, No Neck Pain or Stiffness, No Chest Pain, No Palpitations, No SOB, No BOGGS, No Cough, No Sputum, No Wheezing, No Abdominal Pain, No Diarrhea, No Hematemesis, No Hemoptysis, No Unexpected Weight Loss, No Flank pain, No Melena, No Hematochezia, No Frequency, No Urgency, No Burning, No Hematuria, No Rashes, No Diaphoresis. Appetite is Normal Physical Exam Gen-AAO x 3, NAD, Afebrile Head-NCAT, EOMI, PERRLA, Anicteric Sclera, No Posterior Pharyngeal Erythema Neck-Supple, No JVD, No Thyromegaly, No Masses, No LAD, No Bruits Lungs-Clear to Auscultation Bilaterally, No Rales, No Rhonchi, No Wheezing, No Crepitus Chest-No S4, +S1, +S2, No S3, No Murmurs, No Rubs, No Gallops, No Ectopy Abdomen-Soft, Bowel Sounds Present, Non Tender, Non Distended, No Hepatomegaly, No Splenomegaly, No Palpable Masses, No Rebound, No Rigidity, No Guarding Musculoskeletal-Full Range of Motion Bilaterally, No CVAT Extremities-No Cyanosis, No Clubbing, No Edema, Left Hand deformity, L 3rd finger amputated Nuero-Cranial Nerves II-XII grossly intact, Motor WNL, DTRs WNL, Strength WNL, Non Focal Psych-Normal Mood Total Time Total Time Spent Total Time Spent (In Minutes): 45 min Total Time Includes: Examination of the Patient, Discharge Planning, Medication Reconciliation and Communication With Other Providers Discharge Plan Discharge Items Patient Disposition: Home - Self-Care Reason For Visit: LEFT FINGER INFECTION Discharge Diagnosis: (1) Cellulitis of hand: (2) KRISTIN (acute kidney injury): (3) Hyperglycemia: (4) Type 1 diabetes: (5) COVID-19: (6) History of non-ST elevation myocardial infarction (NSTEMI): (7) HTN (hypertension): (8) Hypothyroidism: Condition on Discharge: Good Activity: Per Instructions section Lifting: Gradually increase as tolerated Bathing: Keep incision dry Sexual Activity: When tolerated Exercise/Sports: Gradually increase as tolerated Driving/Machine Use: No limitations Weightbearing: Full weightbearing Non-emergency contact: Primary Care Provider and Surgeon Call non-emergency contact if: you have any medication questions Follow-up/Referrals: Santana Lancaster M.D. [Physician] - Farzad Hatfield DO [Primary Care Provider] - Diet: Carb Count or DM1 and Heart Healthy Addtl Attending Provider Instructions: -Call the orthpedics clinic immediately if you have a sudden increase in the amount of wound drainage or the drainage becomes thick, yellow or green, or foul-smelling. -For routine questions, call the orthopedics clinic at [phone] during regular business hours (8am-5pm). For urgent issues after regular business hours, you may call the clinic to be connected to the on-call physician. Dressings -Keep your dressings clean, dry, and in place for the first 4 days after surgery. After 4 days, you may remove the dressing and cover the incision with a new, clean dressing. Be sure to wash your hands thoroughly before touching your incision. Apply a new dressing daily thereafter. -You may begin showering after your first dressing change (4 days after surgery). You may let the water run BRIEFLY over the incision, but do not soak the incision in the bathtub or pool for 2 weeks. You may also gently clean the incision with mild soap and water; pat the incision dry after cleaning-do not rub the incision. -You may use an antibiotic ointment (Bacitracin, Polysporin) if desired, but this is not necessary. Activity -Keep your hand elevated and move your fingers frequently to reduce swelling and prevent stiffness. Pending Studies at Discharge: No Stand-Alone Forms: [facility] [address] Wear, Smoking Cessation, Opioid Pain Management Medications and DC Order Prescriptions: New acetaminophen 325 mg Tablet 650 mg PO Q4H PRN (Reason: fever or pain) Qty: 90 RF: 0 clindamycin HCl 300 mg capsule 300 mg PO Q8H 10 Days Qty: 30 RF: 0 oxycodone 5 mg tablet 5 mg PO Q6H PRN (Reason: pain) Qty: 30 RF: 0 Continued aspirin [Adult Aspirin Regimen] 81 mg tablet,delayed release (DR/EC) 81 mg PO QAM RF: 0 clopidogrel [Plavix] 75 mg tablet 75 mg PO QAM RF: 0 finasteride 5 mg tablet 5 mg PO QAM RF: 0 folic acid 1 mg tablet 1 mg PO QAM RF: 0 levothyroxine 125 mcg tablet 125 mcg PO QAM RF: 0 multivitamin with minerals tablet 1 tab PO QAM RF: 0 tamsulosin [Flomax] 0.4 mg capsule 0.4 mg PO HS RF: 0 venlafaxine 75 mg capsule,extended release 24hr 75 mg PO QAM RF: 0 losartan 50 mg tablet 50 mg PO BID RF: 0 albuterol sulfate 90 mcg/actuation Hfa Aerosol Inhaler 2 puff INHALATION Q4H PRN (Reason: Shortness Of Breath Or Wheezing) RF: 0 furosemide 40 mg Tablet 40 mg PO QAM RF: 0 atorvastatin 40 mg Tablet 40 mg PO QAM RF: 0 sennosides-docusate sodium [Senokot-S] 8.6-50 mg Tablet 1 tab-cap PO QAM RF: 0 omeprazole 20 mg Capsule,Delayed Release(Dr/Ec) 20 mg PO QAM RF: 0 metoprolol succinate 25 mg Tablet Extended Release 24 Hr 25 mg PO QAM RF: 0 gabapentin 300 mg Tablet 300 mg PO QAM RF: 0 Lantus Solostar U-100 Insulin 100 unit/mL (3 mL) Insulin Pen 100 unit SUBCUT QAM PRN (Reason: When Insulin Pump Down) RF: 0 potassium chloride 20 mEq Tablet Extended Release 40 meq PO QAM RF: 0 amlodipine 5 mg tablet 5 mg PO DAILY RF: 0 insulin aspart U-100 100 unit/mL solution See Rx Instructions .ROUTE .COMPLEX RF: 0 ibuprofen 200 mg Tablet 600 mg PO Q6H PRN (Reason: Pain) RF: 0 Discontinued doxycycline hyclate 100 mg capsule 100 mg PO BID RF: 0 Discharge Orders: Discharge Order (Routine); Ordered 07/16/20 Ordered By: Gabriel Marshall Admission Data Admit Date/Time: 07/12/20 18:11 Attending Provider: Gabriel Marshall Admit Provider: Stas Salinas Primary Care Provider: Farzad Hatfield Other Providers: Stas Salinas ; Santana Lancaster ; Behzad Rivera ; Renetta Rossi ; El Botello I. ; Garrison Carmona II ; Jolene Mccallum ; Torey Qiu
[2020-07-16] MEDS: INSULIN ASPART 100 UNITS/ML 3 ML PEN SC SCH (08:27)
[2020-07-16] MEDS: FUROSEMIDE 40 MG TAB PO SCH (08:28)
[2020-07-16] MEDS: FOLIC ACID 1 MG TAB PO SCH (08:28)
[2020-07-16] MEDS: ASPIRIN 81 MG ECTAB PO SCH (08:28)
[2020-07-16] MEDS: VENLAFAXINE HCL XR 75 MG CAPXR PO SCH (08:28)
[2020-07-16] MEDS: ATORVASTATIN 40 MG TAB PO SCH (08:29)
[2020-07-16] MEDS: CEROVITE ADV FORMULA TAB PO SCH (08:29)
[2020-07-16] MEDS: PANTOprazole 40 MG TAB PO SCH (08:29)
[2020-07-16] MEDS: DOCUSATE SODIUM/SENNA 50/8.6MG TAB PO SCH (08:29)
[2020-07-16] MEDS: GABAPENTIN 300 MG CAP PO SCH (08:29)
[2020-07-16] MEDS: amLODIPine BESYLATE 5 MG TAB PO SCH (08:29)
[2020-07-16] MEDS: METOPROLOL SUCC 25MG EXT REL TAB PO SCH (08:29)
[2020-07-16] MEDS: FINASTERIDE 5 MG TAB PO SCH (08:29)
[2020-07-16] MEDS: INSULIN GLARGINE SOLOSTAR 100 UNITS/ML 3 ML PEN SC SCH (08:36)
[2020-07-16] MEDS: LOSARTAN POTASSIUM 50 MG TAB PO SCH (09:34)
== END 2020-07-16 10:45 | disposition home or self-care (01) | DRG 579 ==
LOC: ED 15:51 → 2E 18:11 → SUATTDRO 18:11 → 2E 20:17

== ENCOUNTER 2020-09-27 11:01 | Inpatient (IN) ==
[2020-09-27] MEDS ORDERED: AMPICILLIN/SULBACTAM SOD 3,000 MG in 0.9 % SODIUM CHLORIDE 100 ML IV STA (12:14)
[2020-09-27] MEDS ORDERED: SODIUM CHLORIDE 0.9% 1000ML 1,000 ML IV STA (12:14)
--- NOTE | 2020-09-27 12:20 | Emergency Department Note ---
Impression & Plan Osteomyelitis, Cellulitis, Leukocytosis, Failure of outpatient treatment ED Provider Note NAME: ANNMARIE HATFIELD AGE: 65 SEX: M : 1955 ARRIVES VIA: Walk-In INFORMANT: [Patient] ED PROVIDER(S): [Kwaku Gonsales MD] CHIEF COMPLAINT: Infection HISTORY OF PRESENT ILLNESS: The patient is a 65-year-old male who states that he has had about 3 days of left hand pain, redness and swelling. He has a history of previous infection in his hand. The patient states the pain is a 3 or so over 10. He denies fever or chills. He has not had nausea or vomiting. No abdominal pain, no chest pain or shortness of breath. The patient saw his doctors office yesterday and was given a shot of an antibiotic. He was then placed on oral antibiotics. Today, his doctor reassessed the area and felt he should be seen in the ED, he was sent for evaluation. He has had amputations of this hand secondary to infection. REVIEW OF SYSTEMS: See HPI for pertinent positives and negatives. A total of ten systems were reviewed and were otherwise negative. PMHx/PSHx: See Below SOCIAL HISTORY: See Below. PHYSICAL EXAM: GENERAL: Patient is in no acute distress. HEENT: No acute trauma, normocephalic atraumatic, mucous membranes moist, no nasal congestion, no scleral icterus. NECK: No stridor, no adenopathy, no meningismus, trachea is midline. LUNGS: Clear to auscultation bilaterally, no wheeze, no rhonchi, breath sounds equal. HEART: Without murmurs gallops or rubs, regular rate and rhythm. ABDOMEN: Soft, nontender, bowel sounds positive, no hernias, no peritonitis. EXTREMITIES: No cyanosis, mild bilateral pedal edema. The patient has evidence for previous amputations to a few of the left hand fingers. He does have some open areas to the distal aspect of the fingers. The hand, fingers and distal forearm are erythematous and swollen. There is some ascending infection noted. There is no drainage. Some warmth is noted. NEUROLOGIC: Oriented x 3, no acute motor or sensory deficits, no focal weakness. SKIN: No rash, no jaundice, no diaphoresis. DIFFERENTIAL DIAGNOSIS: Sepsis, UTI, pneumonia, metabolic abnormality, electrolyte abnormalities, cardiac sources, cellulitis, osteomyelitis, UTI, bacteremia, intracerebral event, toxicologic etiology, neurologic event, as well as other pathologies. EMERGENCY DEPARTMENT COURSE/PROCEDURES: MEDICAL DECISION MAKING: There is a mild leukocytosis, this certainly could be consistent with infection. The patient does have a mild anemia with a hemoglobin of 10.5. This hemoglobin value is baseline for the patient. There is a normal platelet count. Sodium is somewhat low but the patient has a history of the same. There is no kidney failure. Lactic acid level is not elevated making sepsis less likely. Alk phos is mildly elevated, the bilirubin was normal. Covid testing returned positive. Left hand CT does show osteomyelitis of at least the fourth finger with a surrounding hand cellulitis. The patient has failed outpatient treatment. He was given IV Unasyn and IV vancomycin while here in the ED. Given the findings on CT, given his laboratory findings and his prior history, I do think a hospital stay is warranted. He may in fact require orthopedic intervention once again on this hand. I spoke to the patient and case melanie rodriguez. The on-call hospitalist has been consulted. Past Med/Surg History Medical History Altered mental status Aortic root enlargement BPH (benign prostatic hyperplasia) CAD (coronary artery disease) Cellulitis of multiple sites of left hand and fingers COPD (chronic obstructive pulmonary disease) COVID-19 Diabetic peripheral neuropathy associated with type 2 diabetes mellitus Dyslipidemia GERD (gastroesophageal reflux disease) HTN (hypertension) Hyponatremia Loss of protective sensation of skin of foot NSTEMI (non-ST elevated myocardial infarction) CHANTELL (obstructive sleep apnea) Osteomyelitis Personal history of diabetic foot ulcer Surgical History H/O adenoidectomy History of hip replacement History of hip replacement History of tonsillectomy History of tonsillectomy and adenoidectomy Family History Other Cancer Diabetes Hypertension Social History Smoking Status: Former smoker Tobacco Type: Cigarettes Cigarettes Per Day: 30; Second Hand Exposure: No; Hx Alcohol Use: Yes Alcohol type: hard liquor Hx Substance Use: No Preferred Language: Armenian Communication Ability: Effective Visual Impairment: No Limitations Hearing Ability: Normal Hand Inserter Operator Required: No Beliefs That Will Affect Care: None marital status: Current Living Situation: Spouse Feels Safe at Home: Yes Assistive Devices: None Allergies Allergies Allergy/AdvReac Type Severity Reaction Status Date / Time DEIDRE Inhibitors AdvReac Unknown Cough Verified 09/27/20 13:40 Home Meds Home Medications Medication Instructions Recorded Confirmed aspirin 81 mg tablet,delayed 81 mg PO QAM 02/04/18 09/27/20 release clopidogrel 75 mg tablet 75 mg PO QAM 02/04/18 09/27/20 finasteride 5 mg tablet 5 mg PO QAM tab 02/04/18 09/27/20 folic acid 1 mg tablet 1 mg PO QAM tab 02/04/18 09/27/20 levothyroxine 125 mcg tablet 125 mcg PO QAM 02/04/18 09/27/20 multivitamin with minerals 1 tab PO QAM tab 02/04/18 09/27/20 tamsulosin 0.4 mg capsule 0.4 mg PO HS cap 02/04/18 09/27/20 venlafaxine 75 mg capsule,extended 75 mg PO QAM cap 02/04/18 09/27/20 release 24 hr losartan 50 mg PO BID 05/13/18 09/27/20 Lantus Solostar U-100 Insulin 100 unit SUBCUT QAM PRN 04/14/20 09/27/20 atorvastatin 40 mg PO QAM 04/14/20 09/27/20 furosemide 40 mg PO QAM 04/14/20 09/27/20 gabapentin 600 mg PO BID 04/14/20 09/27/20 metoprolol succinate 25 mg PO QAM 04/14/20 09/27/20 omeprazole 20 mg PO QAM 04/14/20 09/27/20 potassium chloride 40 meq PO QAM 04/14/20 09/27/20 sennosides-docusate sodium 1 tab-cap PO QAM 04/14/20 09/27/20 [Senokot-S] amlodipine 5 mg PO DAILY 07/12/20 09/27/20 ibuprofen 600 mg PO Q6H PRN 07/12/20 09/27/20 insulin aspart U-100 2 unit SUBCUT CONTINOUS 07/12/20 09/27/20 Previous Rx's Medication Instructions Recorded oxycodone 5 mg PO Q6H PRN #30 tab 07/16/20 Results & Data (ED) Vital Signs Vital Signs - 24 hr 09/27/20 11:13 09/27/20 12:00 09/27/20 12:07 Temperature 36.4 C L Temperature Source Temporal Artery Scan Pulse Rate 89 79 79 Pulse Rate from SpO2 Sensor 79 79 Pulse Rhythm Regular Pulse Strength Normal Respiratory Rate 20 25 H 24 Respiratory Effort / Characteristics Non-Labored Spontaneous Respiratory Depth Normal Respiratory Pattern Regular Blood Pressure 119/76 128/71 Blood Pressure Mean 90 90 Blood Pressure Position Sitting Pulse Oximetry 95 96 96 Oxygen Delivery Method Room Air Sepsis Recent Fever Within 48 Hours No Sepsis New/Unexplained Change in Mental Status No Sepsis Action Taken by Nursing No Action Required 09/27/20 12:10 09/27/20 12:20 09/27/20 12:30 Temperature Temperature Source Pulse Rate 82 79 84 Pulse Rate from SpO2 Sensor 82 80 84 Pulse Rhythm Pulse Strength Respiratory Rate 21 20 Respiratory Effort / Characteristics Respiratory Depth Respiratory Pattern Blood Pressure 137/77 Blood Pressure Mean 97 Blood Pressure Position Pulse Oximetry 98 95 97 Oxygen Delivery Method Sepsis Recent Fever Within 48 Hours Sepsis New/Unexplained Change in Mental Status Sepsis Action Taken by Nursing 09/27/20 12:40 09/27/20 12:50 09/27/20 13:06 Temperature Temperature Source Pulse Rate 83 79 83 Pulse Rate from SpO2 Sensor 80 Pulse Rhythm Pulse Strength Respiratory Rate 14 22 16 Respiratory Effort / Characteristics Respiratory Depth Respiratory Pattern Blood Pressure Blood Pressure Mean Blood Pressure Position Pulse Oximetry 96 Oxygen Delivery Method Sepsis Recent Fever Within 48 Hours Sepsis New/Unexplained Change in Mental Status Sepsis Action Taken by Nursing 09/27/20 13:10 09/27/20 13:20 09/27/20 13:30 Temperature Temperature Source Pulse Rate 86 79 82 Pulse Rate from SpO2 Sensor 87 79 86 Pulse Rhythm Pulse Strength Respiratory Rate 21 27 H Respiratory Effort / Characteristics Respiratory Depth Respiratory Pattern Blood Pressure 180/109 H Blood Pressure Mean 132 Blood Pressure Position Pulse Oximetry 97 96 93 Oxygen Delivery Method Sepsis Recent Fever Within 48 Hours Sepsis New/Unexplained Change in Mental Status Sepsis Action Taken by Nursing 09/27/20 13:40 09/27/20 13:50 09/27/20 14:00 Temperature Temperature Source Pulse Rate 78 86 81 Pulse Rate from SpO2 Sensor 78 87 80 Pulse Rhythm Pulse Strength Respiratory Rate 27 H 16 Respiratory Effort / Characteristics Respiratory Depth Respiratory Pattern Blood Pressure Blood Pressure Mean Blood Pressure Position Pulse Oximetry 97 96 94 Oxygen Delivery Method Sepsis Recent Fever Within 48 Hours Sepsis New/Unexplained Change in Mental Status Sepsis Action Taken by Nursing 09/27/20 14:01 09/27/20 14:10 09/27/20 14:20 Temperature Temperature Source Pulse Rate 83 81 83 Pulse Rate from SpO2 Sensor 84 82 82 Pulse Rhythm Pulse Strength Respiratory Rate 21 20 20 Respiratory Effort / Characteristics Respiratory Depth Respiratory Pattern Blood Pressure 185/84 H Blood Pressure Mean 117 Blood Pressure Position Pulse Oximetry 98 98 98 Oxygen Delivery Method Sepsis Recent Fever Within 48 Hours Sepsis New/Unexplained Change in Mental Status Sepsis Action Taken by Nursing 09/27/20 14:30 09/27/20 14:31 09/27/20 14:40 Temperature Temperature Source Pulse Rate 88 84 82 Pulse Rate from SpO2 Sensor 88 82 Pulse Rhythm Pulse Strength Respiratory Rate 18 20 24 Respiratory Effort / Characteristics Respiratory Depth Respiratory Pattern Blood Pressure 143/73 H Blood Pressure Mean 96 Blood Pressure Position Pulse Oximetry 94 99 Oxygen Delivery Method Sepsis Recent Fever Within 48 Hours Sepsis New/Unexplained Change in Mental Status Sepsis Action Taken by Nursing 09/27/20 14:50 09/27/20 15:00 09/27/20 15:10 Temperature Temperature Source Pulse Rate 81 86 81 Pulse Rate from SpO2 Sensor 81 87 81 Pulse Rhythm Pulse Strength Respiratory Rate 22 19 16 Respiratory Effort / Characteristics Respiratory Depth Respiratory Pattern Blood Pressure 135/79 Blood Pressure Mean 97 Blood Pressure Position Pulse Oximetry 96 98 98 Oxygen Delivery Method Sepsis Recent Fever Within 48 Hours Sepsis New/Unexplained Change in Mental Status Sepsis Action Taken by Nursing 09/27/20 15:20 09/27/20 15:30 09/27/20 15:40 Temperature Temperature Source Pulse Rate 87 79 83 Pulse Rate from SpO2 Sensor 89 80 85 Pulse Rhythm Pulse Strength Respiratory Rate 21 17 23 Respiratory Effort / Characteristics Respiratory Depth Respiratory Pattern Blood Pressure 152/79 H Blood Pressure Mean 103 Blood Pressure Position Pulse Oximetry 99 99 87 L Oxygen Delivery Method Sepsis Recent Fever Within 48 Hours Sepsis New/Unexplained Change in Mental Status Sepsis Action Taken by Nursing 09/27/20 15:50 09/27/20 16:00 09/27/20 16:10 Temperature Temperature Source Pulse Rate 87 80 88 Pulse Rate from SpO2 Sensor 86 81 88 Pulse Rhythm Pulse Strength Respiratory Rate 22 20 28 H Respiratory Effort / Characteristics Respiratory Depth Respiratory Pattern Blood Pressure 136/74 Blood Pressure Mean 94 Blood Pressure Position Pulse Oximetry 98 96 99 Oxygen Delivery Method Sepsis Recent Fever Within 48 Hours Sepsis New/Unexplained Change in Mental Status Sepsis Action Taken by Nursing 09/27/20 16:20 09/27/20 16:30 09/27/20 16:31 Temperature Temperature Source Pulse Rate 82 95 H 90 Pulse Rate from SpO2 Sensor 82 Pulse Rhythm Pulse Strength Respiratory Rate 29 H 29 H 26 H Respiratory Effort / Characteristics Respiratory Depth Respiratory Pattern Blood Pressure 164/92 H Blood Pressure Mean 116 Blood Pressure Position Pulse Oximetry 98 Oxygen Delivery Method Sepsis Recent Fever Within 48 Hours Sepsis New/Unexplained Change in Mental Status Sepsis Action Taken by Nursing 09/27/20 16:40 09/27/20 16:50 09/27/20 17:00 Temperature Temperature Source Pulse Rate 85 83 85 Pulse Rate from SpO2 Sensor 83 81 85 Pulse Rhythm Pulse Strength Respiratory Rate Respiratory Effort / Characteristics Respiratory Depth Respiratory Pattern Blood Pressure 156/81 H Blood Pressure Mean 106 Blood Pressure Position Pulse Oximetry 94 96 97 Oxygen Delivery Method Sepsis Recent Fever Within 48 Hours Sepsis New/Unexplained Change in Mental Status Sepsis Action Taken by Nursing 09/27/20 17:10 09/27/20 17:20 09/27/20 17:30 Temperature Temperature Source Pulse Rate 88 89 87 Pulse Rate from SpO2 Sensor 88 88 Pulse Rhythm Pulse Strength Respiratory Rate 24 Respiratory Effort / Characteristics Respiratory Depth Respiratory Pattern Blood Pressure Blood Pressure Mean Blood Pressure Position Pulse Oximetry 98 97 Oxygen Delivery Method Sepsis Recent Fever Within 48 Hours Sepsis New/Unexplained Change in Mental Status Sepsis Action Taken by Nursing 09/27/20 17:31 09/27/20 17:40 09/27/20 17:50 Temperature Temperature Source Pulse Rate 89 86 84 Pulse Rate from SpO2 Sensor 86 85 Pulse Rhythm Pulse Strength Respiratory Rate 20 18 Respiratory Effort / Characteristics Respiratory Depth Respiratory Pattern Blood Pressure Blood Pressure Mean Blood Pressure Position Pulse Oximetry 98 99 Oxygen Delivery Method Sepsis Recent Fever Within 48 Hours Sepsis New/Unexplained Change in Mental Status Sepsis Action Taken by Nursing 09/27/20 18:00 09/27/20 18:01 Temperature Temperature Source Pulse Rate 96 H 95 H Pulse Rate from SpO2 Sensor 100 H 95 H Pulse Rhythm Pulse Strength Respiratory Rate 19 24 Respiratory Effort / Characteristics Respiratory Depth Respiratory Pattern Blood Pressure 160/88 H Blood Pressure Mean 112 Blood Pressure Position Pulse Oximetry 79 L 97 Oxygen Delivery Method Sepsis Recent Fever Within 48 Hours Sepsis New/Unexplained Change in Mental Status Sepsis Action Taken by Jail Medications Current Medication List: was personally reviewed by me Laboratory Data Attestation: I reviewed the patient's lab results. Result diagrams: 09/27/20 11:57 09/27/20 11:57 Lab Results 09/27/20 09/27/20 09/27/20 Range/Units 11:57 11:57 12:42 WBC 13.06 H (4.8-10.8) K/uL RBC 3.62 L (4.7-6.1) M/uL Hgb 10.5 L (14.0-18.0) g/dL Hct 32.4 L (42-52) % MCV 89.5 (80-100) fL MCH 29.0 (25-34) pg MCHC 32.4 (32-36) g/dL RDW Std Deviation 53.2 H (36.4-46.3) fL RDW Coeff of Juan Manuel 16.2 H (11.5-14.5) % Plt Count 326 (130-400) K/uL MPV 10.1 (7.4-10.4) fL Immature Gran % (Auto) 0.3 % Neut % (Auto) 81.0 % Lymph % (Auto) 5.7 % Aurora % (Auto) 12.4 % Eos % (Auto) 0.4 % Baso % (Auto) 0.2 % Neut # (Auto) 10.57 H (1.4-6.5) K/uL Lymph # (Auto) 0.75 L (1.2-3.4) K/uL Aurora # (Auto) 1.62 H (0.11-0.59) K/uL Eos # (Auto) 0.05 (0-0.5) K/uL Baso # (Auto) 0.03 (0-0.2) K/uL Immature Gran # (Auto) 0.04 H (0.00-0.02) K/uL Sodium 132 L (136-145) mmol/L Potassium 4.2 (3.5-5.1) mmol/L Chloride 102 (98-107) mmol/L Carbon Dioxide 21 (21-32) mmol/L Anion Gap 9.0 (3-11) BUN 16 (7-18) mg/dl Creatinine 1.26 (0.6-1.4) mg/dl Est Cr Clr Drug Dosing 77.5 ml/min Est GFR ( Amer) 69.9 Est GFR (Non-Af Amer) 60.3 BUN/Creatinine Ratio 12.4 (10-20) Glucose 173 H (70-99) mg/dl Lactate 2.0 (0.4-2.0) mmol/L Calcium 8.9 (8.5-10.1) mg/dl Total Bilirubin 0.5 (0.2-1) mg/dl AST 23 (15-37) U/L ALT 21 (12-78) U/L Alkaline Phosphatase 128 H (45-117) U/L Total Protein 8.8 H (6.4-8.2) gm/dl Albumin 2.7 L (3.4-5.0) gm/dl Globulin 6.1 H (2.5-4.0) gm/dl Albumin/Globulin Ratio 0.4 L (0.9-2) Procalcitonin (0-0.5) ng/ml COVID-19 Eval Order SARS-CoV-2 (PCR) (Negative) Influenza Type A (PCR) (Neg) Influenza Type B (PCR) (Neg) RSV (RT-PCR) (Neg) 09/27/20 09/27/20 09/27/20 Range/Units 12:42 14:28 14:28 WBC (4.8-10.8) K/uL RBC (4.7-6.1) M/uL Hgb (14.0-18.0) g/dL Hct (42-52) % MCV (80-100) fL MCH (25-34) pg MCHC (32-36) g/dL RDW Std Deviation (36.4-46.3) fL RDW Coeff of Juan Manuel (11.5-14.5) % Plt Count (130-400) K/uL MPV (7.4-10.4) fL Immature Gran % (Auto) % Neut % (Auto) % Lymph % (Auto) % Aurora % (Auto) % Eos % (Auto) % Baso % (Auto) % Neut # (Auto) (1.4-6.5) K/uL Lymph # (Auto) (1.2-3.4) K/uL Aurora # (Auto) (0.11-0.59) K/uL Eos # (Auto) (0-0.5) K/uL Baso # (Auto) (0-0.2) K/uL Immature Gran # (Auto) (0.00-0.02) K/uL Sodium (136-145) mmol/L Potassium (3.5-5.1) mmol/L Chloride (98-107) mmol/L Carbon Dioxide (21-32) mmol/L Anion Gap (3-11) BUN (7-18) mg/dl Creatinine (0.6-1.4) mg/dl Est Cr Clr Drug Dosing ml/min Est GFR ( Amer) Est GFR (Non-Af Amer) BUN/Creatinine Ratio (10-20) Glucose (70-99) mg/dl Lactate (0.4-2.0) mmol/L Calcium (8.5-10.1) mg/dl Total Bilirubin (0.2-1) mg/dl AST (15-37) U/L ALT (12-78) U/L Alkaline Phosphatase (45-117) U/L Total Protein (6.4-8.2) gm/dl Albumin (3.4-5.0) gm/dl Globulin (2.5-4.0) gm/dl Albumin/Globulin Ratio (0.9-2) Procalcitonin 0.17 (0-0.5) ng/ml COVID-19 Eval Order CovFluRsv at [facility] SARS-CoV-2 (PCR) POSITIVE A* (Negative) Influenza Type A (PCR) Negative (Neg) Influenza Type B (PCR) Negative (Neg) RSV (RT-PCR) Negative (Neg) Administered Medications Sodium Chloride (Nss 1000ml) 1,000 mls @ 125 mls/hr IV .Q8H STA Stop: 09/27/20 20:13 Last Admin: 09/27/20 13:06 Dose: 125 mls/hr Documented by: [id number] Discontinued Medications Ampicillin Sodium/Sulbactam Sodium 3,000 mg/ Sodium Chloride 108 mls @ 200 mls/hr IV NOW STA; Protocol Stop: 09/27/20 12:46 Last Infusion: 09/27/20 13:56 Dose: 200 mls/hr Documented by: [id number] Admin: 09/27/20 13:06 Dose: 200 mls/hr Documented by: [id number] Vancomycin HCl 2,750 mg/ (Sodium Chloride) 555 mls @ 200 mls/hr IV NOW ONE Stop: 09/27/20 16:53 Last Admin: 09/27/20 14:54 Dose: 200 mls/hr Documented by: [id number] Imaging Data Radiologist's Impression: Hand CT 09/27/20 12:14 CT SCAN OF THE LEFT HAND WITHOUT IV CONTRAST CLINICAL HISTORY: Left hand infection. COMPARISON STUDY: CT of the left hand dated 04/14/2020. MRI of the left hand dated 07/12/2020. TECHNIQUE: CT scan of the left hand is performed from the distal radius and ulna to the base of the fingers. Images are reviewed in the axial, sagittal, and coronal planes. IV contrast was not administered for this examination. 3-D reformats are created and assessed. A dose lowering technique was utilized adhering to the principles of ALARA. Note that interpretation is significantly suboptimal without plain film correlate. CT DOSE: 258.06 mGy.cm FINDINGS: The skeletal structures are osteopenic. There has been amputation of the third finger at the level of the metacarpal phalangeal joint. There has likely been amputation of the fifth finger at the level of the distal interphalangeal joint. A metallic foreign body is present within the dorsal soft tissues at the level of the second metacarpal head. Destructive bony change/erosion is seen involving the first distal phalanx, the second distal phalanx, and the fifth middle phalanx. This could represent post amputation change, and/or osteomyelitis. There is an open wound in the fourth finger with marked soft tissue edema and subcutaneous gas. Intraosseous gas is present within the fourth distal phalanx, and this likely represents osteomyelitis. There are tiny radiodense foreign bodies versus bone fragments within the adjacent soft tissues. Degenerative change with bony overgrowth is seen involving the metacarpal heads. Mild osteoarthritic change is seen involving the interphalangeal joints. Foci of cystic degenerative change are noted throughout the carpal bones. Diffuse soft tissue edema is present throughout the wrist, hand, and fingers. As noted above, this is greatest in the fourth digit. Atherosclerotic calcification is noted in the regional arteries. There is atrophy of the regional musculature. No organized fluid collection is seen on this unenhanced examination. IMPRESSION: 1. There is postoperative change from amputations involving the third and fifth fingers as above. 2. There is erosion/destructive change involving the first distal phalanx, the second distal phalanx, and the fifth middle phalanx. This could represent infection/osteomyelitis and/or changes from previous amputation. Clinical correlation will be essential. 3. There is a large wound in the distal fourth digit with significant subcutaneous gas as well as intraosseous gas involving the fourth distal phalanx. This is consistent with osteomyelitis. 4. Diffuse soft tissue edema is present throughout the wrist and hand, greatest in the fourth digit. This is typical for cellulitis. 5. No organized fluid collection is clearly identified to indicate abscess. 6. A metallic foreign body is again noted within the dorsal soft tissues at the level of the second metatarsal head. ACT 112: Negative or not required by law. Dictated: 09/27/2020 1:04 PM Transcribed: 09/27/2020 1:59 PM [facility] [id number] [email or web address] Electronically signed by: Kwaku Collazo M.D. 09/27/2020 2:00 PM Discharge Plan Visit Data Chief Complaint: Infection Stated Complaint: LEFT HAND/ARM INFECTION FROM ELBOW TO FINGERS ED Provider: Kwaku Gonsales Discharge Problem: Osteomyelitis, Cellulitis, Leukocytosis, Failure of outpatient treatment Patient Disposition: Admitted As Inpatient Condition: Fair Forms Stand Alone Forms: [facility] [employer] Prescriptions Prescriptions: No Action aspirin [Adult Aspirin Regimen] 81 mg tablet,delayed release (DR/EC) 81 mg PO QAM RF: 0 clopidogrel [Plavix] 75 mg tablet 75 mg PO QAM RF: 0 finasteride 5 mg tablet 5 mg PO QAM RF: 0 folic acid 1 mg tablet 1 mg PO QAM RF: 0 levothyroxine 125 mcg tablet 125 mcg PO QAM RF: 0 multivitamin with minerals tablet 1 tab PO QAM RF: 0 tamsulosin [Flomax] 0.4 mg capsule 0.4 mg PO HS RF: 0 venlafaxine 75 mg capsule,extended release 24hr 75 mg PO QAM RF: 0 losartan 50 mg tablet 50 mg PO BID RF: 0 furosemide 40 mg Tablet 40 mg PO QAM RF: 0 atorvastatin 40 mg Tablet 40 mg PO QAM RF: 0 sennosides-docusate sodium [Senokot-S] 8.6-50 mg Tablet 1 tab-cap PO QAM RF: 0 omeprazole 20 mg Capsule,Delayed Release(Dr/Ec) 20 mg PO QAM RF: 0 metoprolol succinate 25 mg Tablet Extended Release 24 Hr 25 mg PO QAM RF: 0 gabapentin 300 mg Tablet 600 mg PO BID RF: 0 Lantus Solostar U-100 Insulin 100 unit/mL (3 mL) Insulin Pen 100 unit SUBCUT QAM PRN (Reason: When Insulin Pump Down) RF: 0 potassium chloride 20 mEq Tablet Extended Release 40 meq PO QAM RF: 0 amlodipine 5 mg tablet 5 mg PO DAILY RF: 0 insulin aspart U-100 100 unit/mL solution 2 unit subcut CONTINOUS RF: 0 ibuprofen 200 mg Tablet 600 mg PO Q6H PRN (Reason: Pain) RF: 0 oxycodone 5 mg tablet 5 mg PO Q6H PRN (Reason: pain) Qty: 30 RF: 0 Referrals Referrals: Farzad Hatfield DO [Primary Care Provider] - Discharge Problem: Osteomyelitis Qualifiers: Osteomyelitis type: unspecified type Osteomyelitis location: hand Laterality: left Qualified Code(s): M86.9 - Osteomyelitis, unspecified Cellulitis Qualifiers: Site of cellulitis: extremity Site of cellulitis of extremity: upper extremity Laterality: left Qualified Code(s): L03.114 - Cellulitis of left upper limb Leukocytosis Qualifiers: Leukocytosis type: unspecified Qualified Code(s): D72.829 - Elevated white blood cell count, unspecified
[2020-09-27 12:32] LABS: Basophils # (auto) 0.03 K/uL (0-0.2); Basophils % (auto) 0.2 %; Eosinophils # (auto) 0.05 K/uL (0-0.5); Eosinophils % (auto) 0.4 %; Hematocrit (blood only) 32.4 % (42-52); Hemoglobin 10.5 g/dL (14.0-18.0); Immature Granulocytes # (auto) 0.04 K/uL (0.00-0.02); Immature Granulocytes % (auto) 0.3 %; Lymphocytes # (auto) 0.75 K/uL (1.2-3.4); Lymphocytes % (auto) 5.7 %; Mean Corpuscular Hgb Conc 32.4 g/dL (32-36); Mean Corpuscular Volume 89.5 fL (80-100); Mean Platelet Volume 10.1 fL (7.4-10.4); Monocytes # (auto) 1.62 K/uL (0.11-0.59); Monocytes % (auto) 12.4 %; Neutrophils # (auto) 10.57 K/uL (1.4-6.5); Platelet Count 326 K/uL (130-400); RDW Coefficient of Variation 16.2 % (11.5-14.5); RDW Standard Deviation 53.2 fL (36.4-46.3); Red Blood Count 3.62 M/uL (4.7-6.1); White Blood Count 13.06 K/uL (4.8-10.8)
[2020-09-27 12:39] LABS: Albumin Level 2.7 gm/dl (3.4-5.0); BUN Creatinine Ratio 12.4 (10-20); Calcium 8.9 mg/dl (8.5-10.1); Creatinine Clr Calc Pharmacy 77.5 ml/min; Est GFR (African American) 69.9; Est GFR (Non-African American) 60.3; Potassium 4.2 mmol/L (3.5-5.1)
[2020-09-27 12:42] LABS: Albumin Globulin Ratio 0.4 (0.9-2); Bilirubin,Total 0.5 mg/dl (0.2-1); Globulin 6.1 gm/dl (2.5-4.0); Total Protein 8.8 gm/dl (6.4-8.2)
--- NOTE | 2020-09-27 14:02 | CT Scan Report ---
CT SCAN OF THE LEFT HAND WITHOUT IV CONTRAST CLINICAL HISTORY: Left hand infection. COMPARISON STUDY: CT of the left hand dated 04/14/2020. MRI of the left hand dated 07/12/2020. TECHNIQUE: CT scan of the left hand is performed from the distal radius and ulna to the base of the f ingers. Images are reviewed in the axial, sagittal, and coronal planes. IV contrast was not administe red for this examination. 3-D reformats are created and assessed. A dose lowering technique was utili rhea adhering to the principles of ALARA. Note that interpretation is significantly suboptimal without plain film correlate. CT DOSE: 258.06 mGy.cm FINDINGS: The skeletal structures are osteopenic. There has been amputation of the third finger at th e level of the metacarpal phalangeal joint. There has likely been amputation of the fifth finger at t he level of the distal interphalangeal joint. A metallic foreign body is present within the dorsal so ft tissues at the level of the second metacarpal head. Destructive bony change/erosion is seen involv ing the first distal phalanx, the second distal phalanx, and the fifth middle phalanx. This could rep resent post amputation change, and/or osteomyelitis. There is an open wound in the fourth finger with marked soft tissue edema and subcutaneous gas. Intraosseous gas is present within the fourth distal phalanx, and this likely represents osteomyelitis. There are tiny radiodense foreign bodies versus ritesh ne fragments within the adjacent soft tissues. Degenerative change with bony overgrowth is seen invol ving the metacarpal heads. Mild osteoarthritic change is seen involving the interphalangeal joints. F oci of cystic degenerative change are noted throughout the carpal bones. Diffuse soft tissue edema is present throughout the wrist, hand, and fingers. As noted above, this is greatest in the fourth digi t. Atherosclerotic calcification is noted in the regional arteries. There is atrophy of the regional musculature. No organized fluid collection is seen on this unenhanced examination. IMPRESSION: 1. There is postoperative change from amputations involving the third and fifth fingers as above. 2. There is erosion/destructive change involving the first distal phalanx, the second distal phalanx, and the fifth middle phalanx. This could represent infection/osteomyelitis and/or changes from previ ous amputation. Clinical correlation will be essential. 3. There is a large wound in the distal fourth digit with significant subcutaneous gas as well as int raosseous gas involving the fourth distal phalanx. This is consistent with osteomyelitis. 4. Diffuse soft tissue edema is present throughout the wrist and hand, greatest in the fourth digit. This is typical for cellulitis. 5. No organized fluid collection is clearly identified to indicate abscess. 6. A metallic foreign body is again noted within the dorsal soft tissues at the level of the second m etatarsal head. ACT 112: Negative or not required by law. Dictated: 09/27/2020 1:04 PM Transcribed: 09/27/2020 1:59 PM Shona [id number] [email or web address] Electronically signed by: Kwaku Collazo M.D. 09/27/2020 2:00 PM
[2020-09-27] MEDS ORDERED: VANCOMYCIN HCL 2,750 MG in SODIUM CHLORIDE 0.9% 500 ML IV ONE ×2 (14:07→21:30)
[2020-09-27] MEDS ORDERED: VANCOMYCIN CONSULT ACTIVE PRN ×2 (14:07→20:35)
--- NOTE | 2020-09-27 15:07 | History & Physical Report ---
Date of Service September 27, 2020 Assessment & Plan (1) Acute osteomyelitis of left hand including fingers: (2) Cellulitis of left upper extremity: (3) Uncontrolled diabetes mellitus: (4) HTN (hypertension): (5) CAD (coronary artery disease): (6) Alcohol abuse: (7) Hypothyroidism: (8) BPH (benign prostatic hyperplasia): (9) CHANTELL (obstructive sleep apnea): This is a 65-year-old male with PMH of uncontrolled Type 1 DM, hypothyroidism, CHANTELL on CPAP, asthma, HTN, CAD, GERD, Obesity, history of NSTEMI and other medical problems listed below who was sent in from [facility] due to worsening appearance of left hand cellulitis was found to have osteomyelitis in multiple digits on left hand. Acute osteomyelitis of multiple digits of left hand Cellulitis of left hand, streaking extending to elbow Leukocytosis of 13.06, lactic acid and pro-Jack within normal limits Left hand CT with * Erosion/destructive change involving the first distal phalanx, the second distal phalanx, and the fifth middle phalanx. This could represent infection/osteomyelitis and/or changes from previous amputation * Large wound in the distal fourth digit with significant subcutaneous gas as well as intraosseous gas involving the fourth distal phalanx. This is consistent with osteomyelitis * Diffuse soft tissue edema is present throughout the wrist and hand, greatest in the fourth digit. This is typical for cellulitis. Given dose of Unasyn and Vanco in ED Will continue empiric antibiotic coverage with Zosyn and Vanco Follow blood and wound cultures Consulted orthopedic surgery Uncontrolled diabetes Hemoglobin A1c of 10.6 in July 2020 Using insulin pump at home but not a confident user Glycemic consult placed for SQ mgmt, pump education BSG AC HS Hypertension Normotensive Continue amlodipine, Toprol, losartan with hold parameters CAD History of NSTEMI in the past. Denies chest pain. Continue aspirin, plavix, statin Alcohol abuse Endorses drinking 1 pint whiskey daily No signs or symptoms of withdrawal at present time Alcohol withdrawal precautions, gabapentin protocol with IV ativan as needed Hypothyroidism Continue levothyroxine BPH Continue tamsulosin, finasteride. Bladder scan as needed CHANTELL Family bring patient CPAP to use at bedtime DVT Ppx: SQ heparin Code status: FULL PCP: Liu Dispo: Admitted to med/surg. Patient seen in collaboration with Dr. Ortega. Please see addendum. History of Present Illness Chief Complaint: Left hand cellulitis, osteo Primary Care Provider: Farzad Hatfield, This is a 65-year-old male with PMH of uncontrolled Type 1 DM, hypothyroidism, CHANTELL on CPAP, asthma, HTN, CAD, GERD, Obesity, history of NSTEMI and other medical problems listed below who was sent in from [facility] due to worsening appearance of left hand cellulitis and concern for osteomyelitis of fourth and second digit. Was recently admitted in July 2020 with osteomyelitis of third digit on left hand that was subsequently amputated at the level of the MCP. Has noted swelling in left hand and fourth digit particularly for 4 days it has become more painful. Also notes open wound on fourth digit with some purulent drainage. Was seen at [facility] yesterday and then again today for left hand cellulitis. Despite being given IM Rocephin yesterday and started on Bactrim, redness and swelling seemed worse and patient was sent to ED for further evaluation of necrotic digits. Endorses chills but denies fever. States he is compliant with medication but is newly using insulin pump and is not confident with its management. Has not taken any medications today. Denies lightheadedness, headache, chest pain, shortness of breath, nausea, vomiting, abdominal pain, dysuria, diarrhea or constipation. Allergies Allergy/AdvReac Type Severity Reaction Status Date / Time DEIDRE Inhibitors AdvReac Unknown Cough Verified 09/27/20 13:40 Home Medications Medication Instructions Recorded Confirmed Type aspirin 81 mg tablet,delayed 81 mg PO QAM 02/04/18 09/27/20 History release clopidogrel 75 mg tablet 75 mg PO QAM 02/04/18 09/27/20 History finasteride 5 mg tablet 5 mg PO QAM tab 02/04/18 09/27/20 History folic acid 1 mg tablet 1 mg PO QAM tab 02/04/18 09/27/20 History levothyroxine 125 mcg tablet 125 mcg PO QAM 02/04/18 09/27/20 History multivitamin with minerals 1 tab PO QAM tab 02/04/18 09/27/20 History tamsulosin 0.4 mg capsule 0.4 mg PO HS cap 02/04/18 09/27/20 History venlafaxine 75 mg capsule,extended 75 mg PO QAM cap 02/04/18 09/27/20 History release 24 hr losartan 50 mg PO BID 05/13/18 09/27/20 History Lantus Solostar U-100 Insulin 100 unit SUBCUT QAM PRN 04/14/20 09/27/20 History atorvastatin 40 mg PO QAM 04/14/20 09/27/20 History furosemide 40 mg PO QAM 04/14/20 09/27/20 History gabapentin 600 mg PO BID 04/14/20 09/27/20 History metoprolol succinate 25 mg PO QAM 04/14/20 09/27/20 History omeprazole 20 mg PO QAM 04/14/20 09/27/20 History potassium chloride 40 meq PO QAM 04/14/20 09/27/20 History sennosides-docusate sodium 1 tab-cap PO QAM 04/14/20 09/27/20 History [Senokot-S] amlodipine 5 mg PO DAILY 07/12/20 09/27/20 History ibuprofen 600 mg PO Q6H PRN 07/12/20 09/27/20 History insulin aspart U-100 2 unit SUBCUT CONTINOUS 07/12/20 09/27/20 History oxycodone 5 mg PO Q6H PRN #30 tab 07/16/20 09/27/20 Rx Past Med/Surg History Medical History Altered mental status Aortic root enlargement BPH (benign prostatic hyperplasia) CAD (coronary artery disease) Cellulitis of multiple sites of left hand and fingers COPD (chronic obstructive pulmonary disease) COVID-19 Diabetic peripheral neuropathy associated with type 2 diabetes mellitus Dyslipidemia GERD (gastroesophageal reflux disease) HTN (hypertension) Hyponatremia Loss of protective sensation of skin of foot NSTEMI (non-ST elevated myocardial infarction) CHANTELL (obstructive sleep apnea) Osteomyelitis Personal history of diabetic foot ulcer Surgical History H/O adenoidectomy History of hip replacement History of hip replacement History of tonsillectomy History of tonsillectomy and adenoidectomy Family History Other Cancer Diabetes Hypertension Social History Smoking Status: Former smoker Tobacco Type: Cigarettes Cigarettes Per Day: 30; Second Hand Exposure: No; Hx Alcohol Use: No Hx Substance Use: No Preferred Language: Latvian Communication Ability: Effective Visual Impairment: No Limitations Hearing Ability: Normal 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 Physical Exam Physical Exam: General Appearance: WD/WN, vitals as above, NAD, sitting up in bed, pleasant, conversing easily Head: normocephalic, atraumatic Eyes: normal inspection, PERRL, conjunctivae normal, anicteric sclerae ENT: external ear and nose normal, oropharynx normal Neck: normal visual inspection, trachea midline, no thyromegaly Respiratory: normal respiratory effort, lungs clear to auscultation, no wheeze, rales, rhonchi. No accessory muscle use Cardiovascular: regular rate, rhythm, no murmur, normal peripheral pulses, no BLE edema. Vessels: no JVD Chest: normal inspection of chest Abdomen/GI: normal bowel sounds, soft, nontender, no hepatosplenomegaly Extremities/Musculoskeletal: L hand with multiple healed amputations. 2nd and 4th distal digits necrotic with open wounds. L hand with erythema and edema extending up L forearm with streaking. Dorsum of L foot with small open wound. Extremities motor strength 5/5 Neurologic: PERRL, EOMI, accommodation nl, no face palsy, no dysarthria, CN's II-XI intact bilaterally and moves all extremities Psychiatric: A+Ox3, euthymic affect. Poor insight Skin: no rashes, normal color, warm/dry Results & Data Results [facility] Vital Signs (Past 12 Hours) Vital Signs Temp Pulse Resp BP Pulse Ox 09/27/20 11:13 36.4 C L 89 20 119/76 95 Laboratory Results Short CBC 09/27/20 Range/Units 11:57 WBC 13.06 H (4.8-10.8) K/uL Hgb 10.5 L (14.0-18.0) g/dL Hct 32.4 L (42-52) % Plt Count 326 (130-400) K/uL BMP 09/27/20 11:57 Sodium 132 L Potassium 4.2 Chloride 102 Carbon Dioxide 21 BUN 16 Creatinine 1.26 Glucose 173 H Calcium 8.9 Liver Function 09/27/20 Range/Units 11:57 Total Bilirubin 0.5 (0.2-1) mg/dl AST 23 (15-37) U/L ALT 21 (12-78) U/L Alkaline Phosphatase 128 H (45-117) U/L Albumin 2.7 L (3.4-5.0) gm/dl Diagnostic Findings Hand CT 09/27/20 12:14 CT SCAN OF THE LEFT HAND WITHOUT IV CONTRAST CLINICAL HISTORY: Left hand infection. COMPARISON STUDY: CT of the left hand dated 04/14/2020. MRI of the left hand dated 07/12/2020. TECHNIQUE: CT scan of the left hand is performed from the distal radius and ulna to the base of the fingers. Images are reviewed in the axial, sagittal, and coronal planes. IV contrast was not administered for this examination. 3-D reformats are created and assessed. A dose lowering technique was utilized adhering to the principles of ALARA. Note that interpretation is significantly suboptimal without plain film correlate. CT DOSE: 258.06 mGy.cm FINDINGS: The skeletal structures are osteopenic. There has been amputation of the third finger at the level of the metacarpal phalangeal joint. There has likely been amputation of the fifth finger at the level of the distal interphalangeal joint. A metallic foreign body is present within the dorsal soft tissues at the level of the second metacarpal head. Destructive bony change/erosion is seen involving the first distal phalanx, the second distal phalanx, and the fifth middle phalanx. This could represent post amputation change, and/or osteomyelitis. There is an open wound in the fourth finger with marked soft tissue edema and subcutaneous gas. Intraosseous gas is present within the fourth distal phalanx, and this likely represents osteomyelitis. There are tiny radiodense foreign bodies versus bone fragments within the adjac ent soft tissues. Degenerative change with bony overgrowth is seen involving the metacarpal heads. Mild osteoarthritic change is seen involving the interphalangeal joints. Foci of cystic degenerative change are noted throughout the carpal bones. Diffuse soft tissue edema is present throughout the wrist, hand, and fingers. As noted above, this is greatest in the fourth digit. Atherosclerotic calcification is noted in the regional arteries. There is atrophy of the regional musculature. No organized fluid collection is seen on this unenhanced examination. IMPRESSION: 1. There is postoperative change from amputations involving the third and fifth fingers as above. 2. There is erosion/destructive change involving the first distal phalanx, the second distal phalanx, and the fifth middle phalanx. This could represent infection/osteomyelitis and/or changes from previous amputation. Clinical correlation will be essential. 3. There is a large wound in the distal fourth digit with significant subcutaneous gas as well as intraosseous gas involving the fourth distal phalanx. This is consistent with osteomyelitis. 4. Diffuse soft tissue edema is present throughout the wrist and hand, greatest in the fourth digit. This is typical for cellulitis. 5. No organized fluid collection is clearly identified to indicate abscess. 6. A metallic foreign body is again noted within the dorsal soft tissues at the level of the second metatarsal head. ACT 112: Negative or not required by law. Dictated: 09/27/2020 1:04 PM Transcribed: 09/27/2020 1:59 PM Shona [id number] [email or web address] Electronically signed by: Kwaku Collazo M.D. 09/27/2020 2:00 PM Code Status & VTE Plan VTE Prophylaxis Plan VTE Prophylaxis will be ordered: Yes Supervising Physician Co-Signing Physician Notes Care coordinated with Angelica Mirza. Agree with above note. Patient seen and examined. Please refer to her notes for full details. Vital signs reviewed. Physical exam: General exam: Alert and oriented. Not in acute distress. CVS: S1 and S2 heard, regular rate and rhythm, no murmurs. RS: Clear to auscultation, no wheezing or crackles. ABD: Soft, bowel sounds present, nontender, no distention. JOCKEY AGENT: Nonfocal. EXT: left hand and arm erythematous and swollen. Labs: Reviewed. Assessment and plan: 65M with hx of Dm on insulin pump, hx of osteomyelitis of left hand s/p amputation of middle finger, CHANTELL, HTN ongoing alcohol abuse presents with erythema and swelling of left hand since weekend. Saw PCP on 09/26 awas ruthe IM rocephin and po bactrim but as it not getting better presents to ER. Currently hemodynamically stable. Denies any other complaints. Cwellulitis of left hand and arm possible osteomyelitis on ct scan empiric abx zosyn and vanco fluids ortho consulted close monitor. Dm on insulin pump pharmacy consulted close monitor Alcoholism drinks about a pink of whiskey everyday denies any withdrawal symptoms in the past gabapentin protocol, ativan prn close monitor thiamine, folic acid and mvi Other diagnosis and plan of care as per Angelica Botello PA-C. Pablo valverde MD.
[2020-09-27] MEDS ORDERED: GLUCOSE 40% GEL 15 GM TUBE PO PRN (15:32)
[2020-09-27] MEDS ORDERED: DEXTROSE 50% 50 ML SYRINGE IV PRN (15:32)
[2020-09-27] MEDS ORDERED: CARBOHYDRATES FOR HYPOGLYCEMIA PO PRN (15:32)
[2020-09-27] MEDS ORDERED: GLUCAGON FOR INJ 1 MG VIAL SQ PRN (15:32)
[2020-09-27] MEDS ORDERED: GLUCOSE 10 TABS/TUBE PO PRN (15:32)
[2020-09-27] MEDS ORDERED: PHARMACY GLYCEMIC MGMT CONSULT SCH (15:55)
[2020-09-27 15:58] LABS: Influenza A virus by PCR Negative (Neg); Influenza B virus by PCR Negative (Neg); RSV by PCR Negative (Neg)
--- NOTE | 2020-09-27 16:12 | Pharmacy Report ---
Pharmacy Glycemic Short Note 2 - Date of Service September 27, 2020 - Glycemic Short BSG Results (Last 24 hours): 09/27/20 11:57 Glucose 173 H OUTPATIENT ANTIDIABETIC REGIMEN: * NovoLog insulin pump: Settings as listed from July 2020: * Basal Rate 1.7 units/hr (40.8units per day) * Correction Factor 21mg/dL/unit * Carb Ratio 1 unit per 5gm CHO consumed ASSESSMENT: * 65 year old type 1 diabetic admitted for cellulitis of left hand * Patient managed on insulin pump as outpatient, not confident in managing on his own while inpatient, change to basal bolus insulin therapy while inpatient * ADA & AACE recommend a goal blood sugar range 140-180 mg/dl for the majority of critically ill & non-critically ill patients. However, more stringent targets may be selected in individual cases. Will utilize more stringent goal of 110-140mg/dl based on patient age & comorbidities. Additionally, tighter glycemic control is warranted to facilitate wound/infection healing. PLAN FOR INPATIENT GLYCEMIC CONTROL: * DC home insulin pump * Basal insulin * Lantus 65 units SQ x 1 dose now - further dosing in AM * Bolus insulin * NovoLog per scale ACHS or Q6hrs while NPO * Goal Range: Low 110 mg/dL - High 140 mg/dL * Correction Factor: 15 mg/dL/unit * Nutritional / Prandial insulin per carb ratio of 1 unit per 5 grams CHO consumed
[2020-09-27 16:28] LABS: SARS CoV2 RNA(COVID-19) InHosp POSITIVE (Negative)
[2020-09-27] MEDS ORDERED: INSULIN GLARGINE SOLOSTAR 100 UNITS/ML 3 ML PEN SC ONE ×2 (16:30→23:30)
[2020-09-27] MEDS ORDERED: [UNRECOGNIZED DRUG - REMARK] ONE (17:30)
[2020-09-27] MEDS ORDERED: CONSULT PHARMACY STA (19:56)
[2020-09-27] MEDS ORDERED: LORazepam 1 MG/2 ML VIAL IV PRN (19:56)
[2020-09-27] MEDS ORDERED: SODIUM CHLORIDE 0.9% 1000ML 1,000 ML IV SCH (19:56)
[2020-09-27] MEDS ORDERED: GABAPENTIN 1200MG ALCOHOL WITHDRAWAL LOAD PO STA (19:56)
[2020-09-27] MEDS ORDERED: POLYETHYLENE (MIRALAX) 17 GM PACK PO PRN (19:56)
[2020-09-27] MEDS ORDERED: ONDANSETRON INJ 2 MG/ML 2 ML VIAL IV PRN (19:56)
[2020-09-27] MEDS ORDERED: ACETAMINOPHEN 325 MG TAB PO PRN (19:56)
[2020-09-27] MEDS ORDERED: PIPERACILL/TAZOBAC CONSULT ACTIVE PRN (20:35)
[2020-09-27] MEDS ORDERED: PIPERACILLIN/TAZOBACTAM 4.5 GM in DEXTROSE 5% 100 ML IV ONE (21:00)
[2020-09-27] MEDS ORDERED: MULTI-VITAMIN INFUSION 10 ML, THIAMINE HCL 100 MG, FOLIC ACID 1 MG in SODIUM CHLORIDE 0... IV ONE (21:31)
--- NOTE | 2020-09-27 21:38 | Hospitalist Progress Note ---
Date of Service September 27, 2020 Assessment & Plan Admission and Anticipated Discharge Date Admission Date: September 27, 2020 Subjective Addendum: Hx of copd stable, nebs prn, Hx of bph on flomax and proscar Hypothyroidism on sythyroid Diastolic chf on lasix with kcl supplemts. hx of ascending aorta dilatation. follows with cardiology Results & Data Results & Data ([facility]) Vital Signs (Past 12 Hours) Vital Signs Temp Pulse Pulse Resp BP BP Pulse Ox 09/27/20 19:15 36.8 C 91 H 16 165/74 H 95 09/27/20 18:01 95 H 24 160/88 H 97 09/27/20 18:00 96 H 19 79 L 09/27/20 17:50 84 18 99 09/27/20 17:40 86 98 09/27/20 17:31 89 20 09/27/20 17:30 87 24 09/27/20 17:20 89 97 09/27/20 17:10 88 98 09/27/20 17:00 85 156/81 H 97 09/27/20 16:50 83 96 09/27/20 16:40 85 94 09/27/20 16:31 90 26 H 164/92 H 09/27/20 16:30 95 H 29 H 09/27/20 16:20 82 29 H 98 09/27/20 16:10 88 28 H 99 09/27/20 16:00 80 20 136/74 96 09/27/20 15:50 87 22 98 09/27/20 15:40 83 23 87 L 09/27/20 15:30 79 17 152/79 H 99 09/27/20 15:20 87 21 99 09/27/20 15:10 81 16 98 09/27/20 15:00 86 19 135/79 98 09/27/20 14:50 81 22 96 09/27/20 14:40 82 24 99 09/27/20 14:31 84 20 143/73 H 09/27/20 14:30 88 18 94 09/27/20 14:20 83 20 98 09/27/20 14:10 81 20 98 09/27/20 14:01 83 21 185/84 H 98 09/27/20 14:00 81 16 94 09/27/20 13:50 86 27 H 96 09/27/20 13:40 78 97 09/27/20 13:30 82 27 H 180/109 H 93 09/27/20 13:20 79 96 09/27/20 13:10 86 21 97 09/27/20 13:06 83 16 09/27/20 12:50 79 22 96 09/27/20 12:40 83 14 09/27/20 12:30 84 20 137/77 97 09/27/20 12:20 79 95 09/27/20 12:10 82 21 98 09/27/20 12:07 79 24 96 09/27/20 12:00 79 25 H 128/71 96 09/27/20 11:13 36.4 C L 89 20 119/76 95
[2020-09-27] MEDS: METOPROLOL SUCC 25MG EXT REL TAB PO SCH (21:48)
[2020-09-27] MEDS: VENLAFAXINE HCL XR 75 MG CAPXR PO SCH (21:49)
[2020-09-27] MEDS: TAMSULOSIN HCL 0.4 MG CAP PO SCH (21:49)
[2020-09-27] MEDS: LOSARTAN POTASSIUM 50 MG TAB PO SCH (21:50)
[2020-09-27] MEDS: HEPARIN SOD 5,000 UNIT/0.5 ML VIAL SQ SCH (21:56)
[2020-09-27] MEDS ORDERED: GABAPENTIN 600 MG TAB PO ONE (22:00)
[2020-09-27] MEDS: INSULIN ASPART 100 UNITS/ML 3 ML PEN SC SCH ×2 (22:09→22:52)
[2020-09-27] MEDS: CLOPIDOGREL BISULFATE 75 MG TAB PO SCH (22:46)
[2020-09-27] MEDS: ASPIRIN 81 MG ECTAB PO SCH (22:47)
[2020-09-28] MEDS: INSULIN ASPART 100 UNITS/ML 3 ML PEN SC SCH ×8 (00:07→23:59)
[2020-09-28] MEDS: PIPERACILLIN/TAZOBACTAM 4.5 GM in DEXTROSE 5% 100 ML IV SCH ×3 (01:48→21:48)
[2020-09-28] MEDS ORDERED: Nursing to Pharmacy Communication SCH (02:45)
[2020-09-28] MEDS: GABAPENTIN 600 MG TAB PO SCH ×3 (06:02→21:34)
[2020-09-28] MEDS: LEVOTHYROXINE SODIUM 125 MCG TABLET PO SCH (06:02)
[2020-09-28] MEDS: HEPARIN SOD 5,000 UNIT/0.5 ML VIAL SQ SCH ×3 (06:08→21:34)
[2020-09-28] MEDS ORDERED: INSULIN ASPART 100 UNITS/ML 3 ML PEN SC SCH (07:30)
[2020-09-28 08:00] LABS: Hematocrit (blood only) 29.2 % (42-52); Hemoglobin 9.3 g/dL (14.0-18.0); Mean Corpuscular Hemoglobin 28.5 pg (25-34); Mean Corpuscular Hgb Conc 31.8 g/dL (32-36); Mean Corpuscular Volume 89.6 fL (80-100); Mean Platelet Volume 9.4 fL (7.4-10.4); Platelet Count 306 K/uL (130-400); RDW Coefficient of Variation 16.4 % (11.5-14.5); RDW Standard Deviation 53.9 fL (36.4-46.3); Red Blood Count 3.26 M/uL (4.7-6.1); White Blood Count 9.08 K/uL (4.8-10.8)
[2020-09-28 08:37] LABS: BUN Creatinine Ratio 8.2 (10-20); Calcium 8.7 mg/dl (8.5-10.1); Creatinine Clr Calc Pharmacy 89.8 ml/min; Est GFR (African American) 84.2; Est GFR (Non-African American) 72.7; Potassium 3.7 mmol/L (3.5-5.1)
[2020-09-28] MEDS ORDERED: ASPIRIN 81 MG ECTAB PO SCH (09:00)
[2020-09-28] MEDS ORDERED: INSULIN GLARGINE SOLOSTAR 100 UNITS/ML 3 ML PEN SC SCH (09:00)
--- NOTE | 2020-09-28 09:23 | Pharmacy Report ---
Pharmacy Abx Initial Consult - Date of Service September 28, 2020 - Pharmacy Dosing Scope Date of Consult: 09/27/20 Consultation requested by: Angelica Botello Pharmacy is consulted to initiate Vancomycin & Zosyn IV/PO dosing therapy, order appropriate labs and adjust drug dose/frequency. - Subjective The patient is a 65 year old M admitted on 09/27/20 14:50. - Objective Height: 5 ft 11 in Weight: 113.7 kg Vital Signs (Past 12hrs): Vital Signs Temp Pulse Resp BP Pulse Ox 09/28/20 08:02 36.7 C 80 18 115/78 91 09/28/20 00:12 37.2 C 89 18 119/71 92 Lab Results (24hrs): Laboratory Tests (24 Hours) 09/28/20 09/28/20 09/27/20 07:44 07:44 12:42 WBC 9.08 Neut # (Auto) Creatinine 1.08 Est Cr Clr Drug Dosing 89.8 Procalcitonin 0.17 09/27/20 09/27/20 11:57 11:57 WBC 13.06 H Neut # (Auto) 10.57 H Creatinine 1.26 Est Cr Clr Drug Dosing 77.5 Procalcitonin Micro Results: 09/27/20 18:39 Gram Stain - Final Finger,Left Ring Wound Culture - Pending 09/27/20 11:57 Aerobic Blood Culture - Pending Blood 09/27/20 12:42 Aerobic Blood Culture - Pending Blood Anaerobic Blood Culture - Pending - Risk Factors for Resistance * Hospitalization for 48 hours or more within the past 90 days * Antimicrobial use within the last 90 days Daptomycin/Zosyn - Assessment & Plan Assessment 65 year old M admitted with acute osteomyelitis of left hand including fingers & cellulitis of left upper extremity. Left hand CT shows erosion/destructive change involving 1st and 2nd distal phalanx, and 5th middle phalanx; Large wound on distal 4th digit; diffuse soft tissue edema throughout wrist and hand, greatest in 4th digit. Plan Vancomycin/Zosyn for treatment of osteomyelitis Vancomycin IV * Estimated PK Parameters: Vd 0.6 L/kg, Vimal .068 hr-1, t1/2 10.2 hr * Loading dose: 2750 mg (24 mg/kg) * Maintenance dose: 1500 mg IV (13 mg/kg) every 12 hours * Goal trough level for osteomyelitis : 15 to 20 mcg/mL * Trough/Random level ordered for 09/30/20 * A less than traditional dose and/or extended dosing interval has/have been selected due to likelihood of drug accumulation in obese patient/patient with h/o CKD. Piperacillin/tazobactam * 4.5 g bolus administered over 30 minutes, then 4.5 g IV extended infusion every 8 hours for CrCl greater than 20 mL/min OR every 12 hours for CrCl 20 mL/min or less and dialysis. * Aggressive dosing selected due to critically ill status/BMI 35 or more/history of cystic fibrosis. Pharmacy will continue to follow and will adjust dose/frequency as necessary. Thank you.
[2020-09-28] MEDS: POTASSIUM CHLORIDE CRTAB 20 MEQ TABCR PO SCH (09:29)
[2020-09-28] MEDS: FINASTERIDE 5 MG TAB PO SCH (09:30)
[2020-09-28] MEDS: MULTIVITAMIN TAB PO SCH (09:30)
[2020-09-28] MEDS: ATORVASTATIN 40 MG TAB PO SCH (09:30)
[2020-09-28] MEDS: amLODIPine BESYLATE 5 MG TAB PO SCH (09:31)
[2020-09-28] MEDS: FOLIC ACID 1 MG TAB PO SCH (09:31)
[2020-09-28] MEDS: DOCUSATE SODIUM/SENNA 50/8.6MG TAB PO SCH (09:32)
[2020-09-28] MEDS: FUROSEMIDE 40 MG TAB PO SCH (09:32)
[2020-09-28] MEDS: LOSARTAN POTASSIUM 50 MG TAB PO SCH ×2 (09:32→21:33)
[2020-09-28] MEDS: METOPROLOL SUCC 25MG EXT REL TAB PO SCH (09:33)
[2020-09-28] MEDS: PANTOprazole 40 MG TAB PO SCH (09:33)
[2020-09-28] MEDS: THIAMINE HCL 100 MG TAB PO SCH (09:34)
[2020-09-28] MEDS: VENLAFAXINE HCL XR 75 MG CAPXR PO SCH (09:34)
[2020-09-28] MEDS: VANCOMYCIN HCL 1,500 MG in SODIUM CHLORIDE 0.9% 500 ML IV SCH ×2 (09:34→21:29)
[2020-09-28] MEDS: CEROVITE ADV FORMULA TAB PO SCH (09:34)
[2020-09-28] MEDS: ASPIRIN 81 MG ECTAB PO SCH (09:36)
--- NOTE | 2020-09-28 10:20 | XRay Report ---
TWO VIEW CHEST CLINICAL HISTORY: Covid. FINDINGS: PA and lateral chest radiographs are compared to study dated 05/16/2018 and correlated with chest CT dated 01/08/2016. There is a large hiatal hernia. The heart is top normal for projection. Sub tle interstitial airspace opacities are seen in the mid to lower lungs. Trace pleural effusions are n oted on the lateral view. There is no pneumothorax. The skeletal structures appear osteopenic. There are healed left-sided rib fractures. Degenerative change is noted throughout the thoracic spine. IMPRESSION: 1. Subtle interstitial airspace opacities are seen in the mid to lower lungs. This likely corresponds to the reported history of a viral pneumonia. 2. Trace pleural effusions are noted on the lateral view. 3. A hiatal hernia. ACT 112: Negative or not required by law. Electronically signed by: Kwaku Collazo M.D. 09/28/2020 10:19 AM
--- NOTE | 2020-09-28 10:25 | XRay Report ---
LEFT HAND 3 VIEWS CLINICAL HISTORY: Osteomyelitis. FINDINGS: 3 views of the left hand are correlated with CT scan of the left hand dated 09/27/2020. The skeletal structures are osteopenic. No acute fracture is identified. There is an amputation of the th ird finger at the level of the metacarpophalangeal joint. There is erosion versus amputation involvin g the first distal phalanx, the second distal phalanx, and the fifth middle phalanx. Erosive change w ith foci of subcutaneous gas and overlying cutaneous defect/ulceration is seen involving the tuft of the fourth distal phalanx. This is consistent with osteomyelitis. Erosive change is also seen involvi ng the distal fifth middle phalanx. Soft tissue edema is present throughout the hand and fingers, gre atest in the fourth digit. Generative change is seen involving the metacarpophalangeal joints. A meta llic foreign body is seen posterior to the second metacarpal. Atherosclerotic calcification is noted in the regional arteries. IMPRESSION: 1. Findings are consistent with osteomyelitis involving the tuft of the fourth distal phalanx with ov erlying soft tissue edema and subcutaneous gas/soft tissue wound. 2. There is erosive change involving the distal fifth middle phalanx such that osteomyelitis is not e xcluded. 3. Postoperative/amputation changes as above. 4. Diffuse soft tissue edema suggests cellulitis. 5. A metallic foreign body is again seen within the dorsal aspect of the hand. Electronically signed by: Kwaku Collazo M.D. 09/28/2020 10:24 AM
--- NOTE | 2020-09-28 10:42 | Consultation Report ---
DATE OF CONSULTATION: 09/28/2020 ORTHOPEDIC HAND SURGERY CONSULTATION Special attention to left ring finger infection. HISTORY OF PRESENT ILLNESS: This is a patient known to hand surgery service. I performed an amputation previously in the left hand in the remote past. He had recent amputation of the left middle finger by my partner, Dr. Lancaster. This did heal well and he has progressive infection in the left ring finger. He notes pain and swelling in the region and he is admitted to the hospitalist service. PAST MEDICAL HISTORY: Includes, 1. Uncontrolled diabetes. 2. Coronary artery disease. 3. Alcohol abuse. 4. Hypothyroidism. 5. Obstructive sleep apnea. IMAGING: I reviewed a CAT scan, which does suggest osteomyelitis of the left ring finger. OBJECTIVE: Left ring finger examination does show significant swelling throughout the finger. He has a draining sinus tract at the tip of the finger and he has gross purulence draining from the open wound. Fingers show gross evidence of infection. ASSESSMENT: Left ring finger diabetic infection. PLAN: I discussed findings and treatment with him. At this point in time, I do not feel the finger is salvageable. He does exhibit significant infection. We discussed the options of left ring finger amputation. We will likely disarticulate at the MP joint. Can do either general anesthesia or proximal digital block with sedation. Plan for surgical treatment in the a.m. Hospitalist will obtain a chest x-ray given a history of recent COVID in June. The patient has had his COVID vaccine, second dose approximately 2 weeks ago. I discussed risks, benefits, reasonable outcomes and expectations from surgery. The risks and benefits have been discussed including, but not limited to, risk of infection, nerve injury, stiffness, loss of motion, failure to improve, etc. Reasonable outcomes and options of treatment were discussed. An explanation of appropriate alternatives to the procedure that may be advantageous were discussed and their risks and benefits, as well as the risks and benefits of not proceeding with treatment. I offered to answer any additional inquiries concerning the treatment involved. All the patient's questions were answered. The patient is agreeable, understanding of the treatment plan and alternatives, and wishes to proceed with the treatment plan.
[2020-09-28] MEDS: CLOPIDOGREL BISULFATE 75 MG TAB PO SCH (11:41)
[2020-09-28] MEDS ORDERED: INSULIN GLARGINE SOLOSTAR 100 UNITS/ML 3 ML PEN SC STA (12:47)
--- NOTE | 2020-09-28 13:30 | Pharmacy Report ---
Pharmacy Glycemic Short Note 2 - Date of Service September 28, 2020 - Glycemic Short BSG Results (Last 24 hours): 09/27/20 09/27/20 09/28/20 21:59 23:57 00:04 Glucose POC Glucose 151 H 339 H* 376 H* 09/28/20 09/28/20 09/28/20 04:13 05:49 07:44 Glucose 193 H POC Glucose 257 H 241 H 09/28/20 09/28/20 09/28/20 08:58 12:18 12:24 Glucose POC Glucose 167 H 341 H* 349 H* OUTPATIENT ANTIDIABETIC REGIMEN: * NovoLog insulin pump: Settings as listed from July 2020: * Basal Rate 1.7 units/hr (40.8units per day) * Correction Factor 21mg/dL/unit * Carb Ratio 1 unit per 5gm CHO consumed * HbA1c = 10.6% (07/13/20) ASSESSMENT: 09/28: * Patient was never given Lantus dose yesterday afternoon (65 units). Instead, he was given a reduced 30 units at HS as he was NPO at midnight this morning. He was 151 mg/dL at bedtime. * He trended upwards significantly overnight: [phone] mg/dL. This was covered with 29 units of Novolog. * Unsure of why BSG was taken at 0400 and 0600 and both were covered with Novolog * At 0800, BSG was down to 167 mg/dL. However, it trended back up to 341-349 mg/dL at lunch today. * I have tightened both the carb ratio and correction factor * Patient received 30 units of Lantus this AM but I will add another 35 units * He is going to be NPO at midnight again but diet is ordered for now 09/27: * 65 year old type 1 diabetic admitted for cellulitis of left hand * Patient managed on insulin pump as outpatient, not confident in managing on his own while inpatient, change to basal bolus insulin therapy while inpatient * ADA & AACE recommend a goal blood sugar range 140-180 mg/dl for the majority of critically ill & non-critically ill patients. However, more stringent targets may be selected in individual cases. Will utilize more stringent goal of 110-140mg/dl based on patient age & comorbidities. Additionally, tighter glycemic control is warranted to facilitate wound/infection healing. PLAN FOR INPATIENT GLYCEMIC CONTROL: * Basal insulin - increased * Lantus 30 units SC AM + 35 units SC w/ lunch (65 units total) * Bolus insulin - tightened CF and CR * NovoLog per scale ACHS or Q6hrs while NPO * Goal Range: Low 110 mg/dL - High 140 mg/dL * Correction Factor: 12 mg/dL/unit * Nutritional / Prandial insulin per carb ratio of 1 unit per 4 grams CHO consumed DISCHARGE RECOMMENDATIONS: * To be determined
[2020-09-28] MEDS: LACTOBACILLUS ACIDOPHILUS 1 GM PACK PO SCH ×2 (18:02→18:09)
--- NOTE | 2020-09-28 18:19 | Hospitalist Progress Note ---
Date of Service September 28, 2020 Assessment & Plan (1) Acute osteomyelitis of left hand including fingers: (2) Cellulitis of left upper extremity: (3) Uncontrolled diabetes mellitus: (4) HTN (hypertension): (5) CAD (coronary artery disease): (6) Alcohol abuse: (7) Hypothyroidism: (8) BPH (benign prostatic hyperplasia): (9) CHANTELL (obstructive sleep apnea): Patient is a 65 yr old male with H/O Uncontrolled Type 1 DM, hypothyroidism, CHANTELL on CPAP, asthma, HTN, CAD, GERD, Obesity, history of NSTEMI and other medical problems listed below who was sent in from [facility] due to worsening appearance of left hand cellulitis was found to have osteomyelitis in multiple digits on left hand. Acute osteomyelitis of left hand Cellulitis of left Upper Extremity -Hand CT:There is postoperative change from amputations involving the third and fifth fingers as above. There is erosion/destructive change involving the first distal phalanx, the second distal phalanx, and the fifth middle phalanx. This could represent infection/osteomyelitis and/or changes from previous amputation. Clinical correlation will be essential. There is a large wound in the distal fourth digit with significant subcutaneous gas as well as intraosseous gas involving the fourth distal phalanx. This is consistent with osteomyelitis. Diffuse soft tissue edema is present throughout the wrist and hand, greatest in the fourth digit. This is typical for cellulitis. No organized fluid collection is clearly identified to indicate abscess. A metallic foreign body is again noted within the dorsal soft tissues at the level of the second metatarsal head. -Blood Cx: Negative to date -Wound Cx: Staph species -Empirically on vancomycin, Zosyn -Appreciate orthopedics input -Plan for surgery tomorrow -N.p.o. after midnight -Continue wound care Diarrhea Rule out C. difficile Uncontrolled diabetes Admits to being noncompliant HbA1C: 10.6 in July 2020 Using insulin pump at home Glycemic consult placed for SQ mgmt, pump education Monitor BGs Hypertension Stable Continue amlodipine, Toprol, losartan CAD H/O NSTEMI Continue aspirin, plavix, statin Alcohol abuse Drinks 1 pint whiskey daily On gabapentin protocol Monitor for alcohol withdrawal Continue thiamine, folic acid Hypothyroidism Continue levothyroxine BPH Continue tamsulosin, finasteride. Bladder scan as needed CHANTELL CPAP DVT Px: SQ heparin Code status: FULL CODE Admission and Anticipated Discharge Date Admission Date: September 27, 2020 Subjective Patient is seen and examined at bedside Left upper extremity erythema, pain improving Still has left upper extremity edema States having chronic right lower extremity edema Reports diarrhea today Denies chest pain, dyspnea, abdominal pain, nausea, vomiting Offers no other complaints Review of Systems Review of Systems: All systems reviewed & are unremarkable except as noted in HPI & below Physical Exam Physical Exam: Physical Exam: Vitals signs as noted above General Appearance:Obese, no apparent distress Head: normocephalic, Atraumatic Eyes: normal inspection, EOMI Neck: supple, Trachea midline Respiratory/Chest: Normal breath sounds, CTA Cardiovascular: S1, S2, No murmur Abdomen/GI:Soft, Non tender, Bowel sounds present Extremities/Musculoskeletal:normal inspection, LUE and RLE edema, + Loss of fingers B/L, Left ring finger in dressing Neurologic/Psych:AAOX3, grossly no focal neurological deficits Skin: normal color, warm Results & Data Results & Data ([facility]) Vital Signs (Past 12 Hours) Vital Signs Temp Pulse Resp BP Pulse Ox 09/28/20 17:22 36.6 C 74 18 151/87 H 94 09/28/20 08:02 36.7 C 80 18 115/78 91 Laboratory Results Short CBC 09/28/20 Range/Units 07:44 WBC 9.08 (4.8-10.8) K/uL Hgb 9.3 L (14.0-18.0) g/dL Hct 29.2 L (42-52) % Plt Count 306 (130-400) K/uL BMP 09/28/20 07:44 Sodium 134 L Potassium 3.7 Chloride 105 Carbon Dioxide 22 BUN 9 D Creatinine 1.08 Glucose 193 H Calcium 8.7
[2020-09-28] MEDS: TAMSULOSIN HCL 0.4 MG CAP PO SCH (21:34)
[2020-09-29] MEDS: PIPERACILLIN/TAZOBACTAM 4.5 GM in DEXTROSE 5% 100 ML IV SCH ×3 (05:07→22:01)
[2020-09-29] MEDS: INSULIN ASPART 100 UNITS/ML 3 ML PEN SC SCH ×6 (05:45→21:36)
[2020-09-29] MEDS: LEVOTHYROXINE SODIUM 125 MCG TABLET PO SCH (05:46)
[2020-09-29] MEDS: GABAPENTIN 600 MG TAB PO SCH ×2 (05:46→15:10)
[2020-09-29] MEDS: HEPARIN SOD 5,000 UNIT/0.5 ML VIAL SQ SCH (06:10)
--- NOTE | 2020-09-29 07:25 | Anesthesiology Consultation ---
Date of Service September 29, 2020 Assessment & Plan (1) Encounter for pre-operative examination: Chart Review Chart Review: Acceptable Risk for Surgery History Surgery Operation Date: 09/29/20 07:30 Proposed Procedures p Left ring finger amputation(Left) - Ok Rico MD Height/Weight Height: 5 ft 11 in Weight: 113.7 kg Allergies Allergy/AdvReac Type Severity Reaction Status Date / Time DEIDRE Inhibitors AdvReac Unknown Cough Verified 09/27/20 13:40 Medications Home Medications Medication Instructions Recorded Confirmed Last Taken aspirin 81 mg tablet,delayed 81 mg PO QAM 02/04/18 09/27/20 09/26/20 release clopidogrel 75 mg tablet 75 mg PO QAM 02/04/18 09/27/20 09/26/20 finasteride 5 mg tablet 5 mg PO QAM tab 02/04/18 09/27/20 09/26/20 folic acid 1 mg tablet 1 mg PO QAM tab 02/04/18 09/27/20 09/26/20 levothyroxine 125 mcg tablet 125 mcg PO QAM 02/04/18 09/27/20 09/26/20 multivitamin with minerals 1 tab PO QAM tab 02/04/18 09/27/20 09/26/20 tamsulosin 0.4 mg capsule 0.4 mg PO HS cap 02/04/18 09/27/20 09/26/20 venlafaxine 75 mg capsule,extended 75 mg PO QAM cap 02/04/18 09/27/20 09/26/20 release 24 hr losartan 50 mg PO BID 05/13/18 09/27/20 09/26/20 Lanjayda Lehman U-100 Insulin 100 unit SUBCUT QAM PRN 04/14/20 09/27/20 04/14/20 100 units atorvastatin 40 mg PO QAM 04/14/20 09/27/20 09/26/20 furosemide 40 mg PO QAM 04/14/20 09/27/20 09/26/20 gabapentin 600 mg PO BID 04/14/20 09/27/20 09/26/20 metoprolol succinate 25 mg PO QAM 04/14/20 09/27/20 09/26/20 omeprazole 20 mg PO QAM 04/14/20 09/27/20 09/26/20 potassium chloride 40 meq PO QAM 04/14/20 09/27/20 09/26/20 sennosides-docusate sodium 1 tab-cap PO QAM 04/14/20 09/27/20 09/26/20 [Senokot-S] amlodipine 5 mg PO DAILY 07/12/20 09/27/20 09/26/20 ibuprofen 600 mg PO Q6H PRN 07/12/20 09/27/20 09/26/20 600 mg insulin aspart U-100 2 unit SUBCUT CONTINOUS 07/12/20 09/27/20 09/27/20 2 units per hour oxycodone 5 mg PO Q6H PRN #30 tab 07/16/20 09/27/20 Unknown Active Medications Generic Name Dose Route Start Last Admin Trade Name Freq PRN Reason Stop Dose Admin Amlodipine Besylate 5 mg 09/28/20 09:00 09/28/20 09:31 Amlodipine Besylate 5 Mg Tab PO 10/28/20 08:59 5 mg DAILY YUNIOR Administration Aspirin 81 mg 09/27/20 16:30 09/28/20 09:36 Aspirin 81 Mg Ectab PO 10/27/20 16:29 81 mg QAM YUNIOR Administration Atorvastatin Calcium 40 mg 09/28/20 09:00 09/28/20 09:30 Atorvastatin 40 Mg Tab PO 10/28/20 08:59 40 mg QAM YUNIOR Administration Clopidogrel Bisulfate 75 mg 09/27/20 16:23 09/28/20 11:41 Clopidogrel Bisulfate 75 Mg Tab PO 10/27/20 16:22 75 mg QAM YUNIOR Administration Finasteride 5 mg 09/28/20 09:00 09/28/20 09:30 Finasteride 5 Mg Tab PO 10/28/20 08:59 5 mg QAM YUNIOR Administration Folic Acid 1 mg 09/28/20 09:00 09/28/20 09:31 Folic Acid 1 Mg Tab PO 10/28/20 08:59 1 mg QAM YUNIOR Administration Furosemide 40 mg 09/28/20 09:00 09/28/20 09:32 Furosemide 40 Mg Tab PO 10/28/20 08:59 40 mg QAM YUNIOR Administration Gabapentin 600 mg 09/28/20 22:00 09/29/20 05:46 Gabapentin 600 Mg Tab PO 09/29/20 14:01 600 mg Q8H YUNIOR Administration Heparin Sodium (Porcine) 5,000 units 09/27/20 22:00 09/29/20 06:10 Heparin Sod 5,000 Unit/0.5 Ml Vial SQ 10/27/20 21:59 Not Given Q8 YUNIOR Piperacillin Sod/Tazobactam 120 mls @ 30 mls/hr 09/28/20 02:00 09/29/20 05:07 Sod 4.5 gm/ Dextrose IV 11/09/20 01:59 30 mls/hr Q8H YUNIOR Administration Protocol Vancomycin HCl 1,500 mg/ 530 mls @ 200 mls/hr 09/28/20 09:00 09/29/20 03:06 Sodium Chloride IV 11/09/20 08:59 Infused Q12H YUNIOR Infusion Insulin Aspart 0 units 09/28/20 12:50 09/28/20 21:30 Insulin Aspart 100 Units/Ml 3 Ml Pen SC 10/28/20 05:59 Not Given ACHS YUNIOR Protocol Insulin Aspart 0 units 09/29/20 00:00 09/29/20 05:45 Insulin Aspart 100 Units/Ml 3 Ml Pen SC 10/29/20 00:00 7 units Q6 YUNIOR Administration Protocol Lactobacillus Acidophilus 1 gm 09/28/20 17:00 09/28/20 18:09 Lactobacillus Acidophilus 1 Gm Pack PO 10/28/20 16:59 1 gm TIDM YUNIOR Administration Levothyroxine Sodium 125 mcg 09/28/20 06:30 09/29/20 05:46 Levothyroxine Sodium 125 Mcg Tablet PO 10/28/20 06:29 125 mcg DAILYBB YUNIOR Administration Losartan Potassium 50 mg 09/27/20 21:00 09/28/20 21:33 Losartan Potassium 50 Mg Tab PO 10/27/20 20:59 50 mg BID YUNIOR Administration Metoprolol Succinate 25 mg 09/27/20 19:56 09/28/20 09:33 Metoprolol Succ 25mg Ext Rel Tab PO 10/27/20 19:55 25 mg QAM YUNIOR Administration Miscellaneous 15 - 30 gm 09/27/20 15:32 09/28/20 21:40 Carbohydrates For Hypoglycemia PO 10/27/20 15:31 30 gm UD PRN Administration Hypoglycemia Protocol Multivitamins 1 tab 09/28/20 09:00 09/28/20 09:30 Multivitamin Tab PO 10/28/20 08:59 1 tab QAM YUNIOR Administration Multivitamins/Minerals 1 tab 09/28/20 09:00 09/28/20 09:34 Cerovite Adv Formula Tab PO 10/28/20 08:59 1 tab QAM YUNIOR Administration Pantoprazole Sodium 40 mg 09/28/20 09:00 09/28/20 09:33 Pantoprazole 40 Mg Tab PO 10/28/20 08:59 40 mg QAM YUNIOR Administration Protocol Potassium Chloride 40 meq 09/28/20 09:00 09/28/20 09:29 Potassium Chloride Crtab 20 Meq Tabcr PO 10/28/20 08:59 40 meq QAM YUNIOR Administration Senna/Docusate Sodium 1 tab 09/28/20 09:00 09/28/20 09:32 Docusate Sodium/Senna 50/8.6mg Tab PO 10/28/20 08:59 1 tab QAM YUNIOR Administration Tamsulosin HCl 0.4 mg 09/27/20 21:00 09/28/20 21:34 Tamsulosin Hcl 0.4 Mg Cap PO 10/27/20 20:59 0.4 mg HS YUNIOR Administration Thiamine HCl 100 mg 09/28/20 09:00 09/28/20 09:34 Thiamine Hcl 100 Mg Tab PO 10/28/20 08:59 100 mg QAM YUNIOR Administration Venlafaxine HCl 75 mg 09/27/20 19:56 09/28/20 09:34 Venlafaxine Hcl Xr 75 Mg Capxr PO 10/27/20 19:55 75 mg QAM YUNIOR Administration NPO Date Last Intake of Fluids: 09/28/20 Time Last Intake of Fluids: 23:59 Date Last Intake of Solids: 09/28/20 Time Last Intake of Solids: 23:59 Past Medical History Medical History Altered mental status Aortic root enlargement BPH (benign prostatic hyperplasia) CAD (coronary artery disease) Cellulitis of multiple sites of left hand and fingers COPD (chronic obstructive pulmonary disease) COVID-19 Diabetic peripheral neuropathy associated with type 2 diabetes mellitus Dyslipidemia GERD (gastroesophageal reflux disease) HTN (hypertension) Hyponatremia Loss of protective sensation of skin of foot NSTEMI (non-ST elevated myocardial infarction) CHANTELL (obstructive sleep apnea) Osteomyelitis Personal history of diabetic foot ulcer Past Family History Family History Other Cancer Diabetes Hypertension Past Surgical History Surgical History H/O adenoidectomy History of hip replacement History of hip replacement History of tonsillectomy History of tonsillectomy and adenoidectomy Social History Smoking Status: Former smoker Smoking cigarettes per day: 30 Hx Alcohol Use: No Alcohol type: hard liquor alcohol intake frequency: 3 or more drinks per day Alcohol Intake Frequency Comment: pint a day Hx Substance Use: No substance use type: does not use Physical Exam Vital Signs Last Vital Signs Temp 36.7 C 09/29/20 05:27 Pulse 88 09/29/20 05:27 Resp 18 09/29/20 05:27 BP 165/98 H 09/29/20 05:27 Pulse Ox 93 09/29/20 05:27 Testing Laboratory Results 09/27/20 18:39 Gram Stain - Final Finger,Left Ring Wound Culture - Preliminary Staphylococcus aureus 09/27/20 12:42 Aerobic Blood Culture - Preliminary Blood No growth in Aerobic bottle after 24 hours. Anaerobic Blood Culture - Preliminary No growth in Anaerobic bottle after 24 hours. 09/27/20 11:57 Aerobic Blood Culture - Preliminary Blood No growth in Aerobic bottle after 24 hours. Anaerobic Blood Culture - Preliminary 09/29/20 09/28/20 09/28/20 05:34 23:49 22:53 POC Glucose 217 H 84 79 09/28/20 09/28/20 09/28/20 22:30 22:03 21:41 POC Glucose 69 L* 46 L* 50 L* 09/28/20 21:28 POC Glucose 58 L* Laboratory Tests 07/13/20 09/28/20 09/28/20 02:29 07:44 07:44 Hgb 9.3 L Plt Count Potassium 3.7 Creatinine 1.08 Hemoglobin A1c 10.6 H 09/29/20 07:05 Hgb Plt Count 351 Potassium Creatinine Hemoglobin A1c Electrocardiogram Date: 07/12/20 Findings: + NSR @ (74) Chest X-Ray Date: 09/28/20 subtle interstitial opacities Echocardiogram Date: 04/19/20 EF: 55-60% LV Function: normal Valvular Disease: + no significant valvular disease
[2020-09-29 07:27] LABS: Hematocrit (blood only) 28.5 % (42-52); Mean Corpuscular Hemoglobin 28.3 pg (25-34); Mean Corpuscular Hgb Conc 31.6 g/dL (32-36); Mean Corpuscular Volume 89.6 fL (80-100); Mean Platelet Volume 9.8 fL (7.4-10.4); Platelet Count 351 K/uL (130-400); RDW Coefficient of Variation 16.4 % (11.5-14.5); Red Blood Count 3.18 M/uL (4.7-6.1); White Blood Count 8.69 K/uL (4.8-10.8)
[2020-09-29] MEDS ORDERED: BUPIVACAINE 0.5 % 5 MG/1 ML MPF 30ML VIAL ONE (07:32)
[2020-09-29] MEDS ORDERED: BACITRACIN INJ 50,000 UNIT VIAL ONE (07:32)
[2020-09-29] MEDS ORDERED: BUPIVACAINE/EPINEPHRINE 0.5% MPF 1:200,000 30 ML VIAL ONE (07:32)
[2020-09-29] MEDS ORDERED: PROPOFOL IV EMULSION 10 MG/ML 20 ML VIAL IV ONE (07:35)
[2020-09-29] MEDS ORDERED: DEXAMETHASONE SOD INJ 4 MG/ML VIAL ONE (07:35)
[2020-09-29] MEDS ORDERED: ONDANSETRON INJ 2 MG/ML 2 ML VIAL ONE (07:35)
[2020-09-29] MEDS ORDERED: MIDAZOLAM HCL 1 MG/ML 2ML VIAL ONE (07:35)
[2020-09-29] MEDS ORDERED: LIDOCAINE HCL 2% 2 ML VIAL/AMP(20MG/ML) INFIL ONE (07:35)
[2020-09-29] MEDS ORDERED: fentaNYL citrate 100 MCG/2 ML VIAL ONE (07:35)
[2020-09-29] MEDS ORDERED: KETAMINE 50 MG/5 ML SYRINGE ONE (07:35)
[2020-09-29] MEDS ORDERED: LIDOCAINE HCL 1% 20 ML VIAL ONE (07:36)
--- NOTE | 2020-09-29 07:37 | History & Physical Bridge Note ---
Date of Service September 29, 2020 History & Physical Bridge Note I have examined the patient, reviewed the History & Physical and in the interval since the performance of the History & Physical I have noted the following changes of clinical significance: no changes noted I saw the patient in preoperative holding area. We will plan for: 1. Left ring finger amputation
[2020-09-29 08:01] LABS: BUN Creatinine Ratio 11.4 (10-20); Calcium 8.8 mg/dl (8.5-10.1); Creatinine Clr Calc Pharmacy 75.7 ml/min; Est GFR (African American) 68.6; Est GFR (Non-African American) 59.2; Magnesium 2.1 mg/dl (1.8-2.4); Potassium 4.1 mmol/L (3.5-5.1)
[2020-09-29] MEDS ORDERED: ONDANSETRON INJ 2 MG/ML 2 ML VIAL IV PRN (08:02)
[2020-09-29] MEDS ORDERED: fentaNYL citrate 100 MCG/2 ML VIAL IV PRN (08:02)
[2020-09-29] MEDS ORDERED: ATROPINE SULFATE 0.1 MG/ML 10ML SYR IV PRN (08:02)
[2020-09-29] MEDS ORDERED: LABETALOL HCL IV 5 MG/ML 20ML IV PRN (08:02)
--- NOTE | 2020-09-29 08:23 | Post Operative Brief Note ---
Immediate Post Op Note v1 Date of Surgery September 29, 2020 Pre & Post Diagnosis Operation Date: 09/29/20 07:30 Pre-Op Diagnosis: Left ring finger diabetic infection Post-Op Diagnosis: Left ring finger diabetic infection I identified the patient and participated in the time-out.: Yes Procedure Operation Date: 09/29/20 07:30 Actual Procedures p Left ring finger amputation(Left) - Ok Rico MD Surgeon Ok Rico MD [employer] mihaela jesus PA-c Estimated Blood Loss 5 Findings Consistent with Post-Op Diagnosis
[2020-09-29] MEDS ORDERED: INSULIN GLARGINE SOLOSTAR 100 UNITS/ML 3 ML PEN SC ONE (08:30)
[2020-09-29] MEDS: VANCOMYCIN HCL 1,500 MG in SODIUM CHLORIDE 0.9% 500 ML IV SCH ×2 (10:13→21:15)
[2020-09-29] MEDS: CEROVITE ADV FORMULA TAB PO SCH (10:15)
[2020-09-29] MEDS: THIAMINE HCL 100 MG TAB PO SCH (10:15)
[2020-09-29] MEDS: LOSARTAN POTASSIUM 50 MG TAB PO SCH ×2 (10:15→21:18)
--- NOTE | 2020-09-29 11:53 | Anesthesiology Progress Note ---
Date of Service September 29, 2020 Anesthesia Post Procedure Vital Signs Vital Signs: Temp Pulse Pulse Resp BP Pulse Ox 09/29/20 09:32 36.9 C 76 16 130/80 93 09/29/20 09:05 71 21 130/88 92 09/29/20 08:55 36.4 C L 74 22 138/82 93 09/29/20 08:45 71 21 128/85 92 09/29/20 08:35 36.2 C L 78 12 135/89 93 09/29/20 05:27 36.7 C 88 18 165/98 H 93 09/28/20 21:20 37.0 C 80 18 130/80 94 09/28/20 17:22 36.6 C 74 18 151/87 H 94 Pain Intensity Left Hand: Pain Intensity: 3 Transfer of Care Handoff Completed per policy Notes Mental Status: alert / awake / arousable Patient Amnestic to Procedure: Yes Nausea / Vomiting: adequately controlled Pain: adequately controlled Airway Patency, RR, SpO2: stable & adequate BP & HR: stable & adequate Hydration State: stable & adequate Anesthetic Complications: no major complications apparent
[2020-09-29] MEDS ORDERED: INSULIN GLARGINE SOLOSTAR 100 UNITS/ML 3 ML PEN SC STA (12:19)
--- NOTE | 2020-09-29 12:24 | Pharmacy Report ---
Pharmacy Glycemic Short Note 2 - Date of Service September 29, 2020 - Glycemic Short BSG Results (Last 24 hours): 09/28/20 09/28/20 09/28/20 12:18 12:24 17:21 Glucose POC Glucose 341 H* 349 H* 309 H* 09/28/20 09/28/20 09/28/20 21:28 21:41 22:03 Glucose POC Glucose 58 L* 50 L* 46 L* 09/28/20 09/28/20 09/28/20 22:30 22:53 23:49 Glucose POC Glucose 69 L* 79 84 09/29/20 09/29/20 09/29/20 05:34 07:05 08:40 Glucose 234 H POC Glucose 217 H 237 H 09/29/20 11:49 Glucose POC Glucose 272 H OUTPATIENT ANTIDIABETIC REGIMEN: * NovoLog insulin pump: Settings as listed from July 2020: * Basal Rate 1.7 units/hr (40.8units per day) * Correction Factor 21mg/dL/unit * Carb Ratio 1 unit per 5gm CHO consumed * HbA1c = 10.6% (07/13/20) ASSESSMENT: 09/29: * Mr. Hatfield received a total of 163 units of insulin yesterday * 65 units basal + 98 units bolus * BSGs were [phone] mg/dL, uncontrolled * Had an episode of asymptomatic hypoglycemia at bedtime last night which was treated with 30 g of CHO. * Likely related to tight carb ratio * Patient was NPO this morning for surgery so Lantus was reduced to 50 units. He has tested positive for Covid as well so was transferred to covid unit. No steroids ordered at this time. * Fasting and Lunch BSGs were elevated at 217 and 272 mg/dL so added an extra 20 units of Lantus on at lunch given he now has a diet ordered * Will also tighten carb ratio slightly with lunch 09/28: * Patient was never given Lantus dose yesterday afternoon (65 units). Instead, he was given a reduced 30 units at HS as he was NPO at midnight this morning. He was 151 mg/dL at bedtime. * He trended upwards significantly overnight: [phone] mg/dL. This was covered with 29 units of Novolog. * Unsure of why BSG was taken at 0400 and 0600 and both were covered with Novolog * At 0800, BSG was down to 167 mg/dL. However, it trended back up to 341-349 mg/dL at lunch today. * I have tightened both the carb ratio and correction factor * Patient received 30 units of Lantus this AM but I will add another 35 units * He is going to be NPO at midnight again but diet is ordered for now 09/27: * 65 year old type 1 diabetic admitted for cellulitis of left hand * Patient managed on insulin pump as outpatient, not confident in managing on his own while inpatient, change to basal bolus insulin therapy while inpatient * ADA & AACE recommend a goal blood sugar range 140-180 mg/dl for the majority of critically ill & non-critically ill patients. However, more stringent targets may be selected in individual cases. Will utilize more stringent goal of 110-140mg/dl based on patient age & comorbidities. Additionally, tighter glycemic control is warranted to facilitate wound/infection healing. PLAN FOR INPATIENT GLYCEMIC CONTROL: * Basal insulin - increased * Lantus 50 units SC AM + 20 units SC x 1 at lunch (total dose = 70 units) * Bolus insulin - tightened CR * NovoLog per scale ACHS or Q6hrs while NPO * Goal Range: Low 110 mg/dL - High 140 mg/dL * Correction Factor: 12 mg/dL/unit * Nutritional / Prandial insulin per carb ratio of 1 unit per 3.5 grams CHO consumed DISCHARGE RECOMMENDATIONS: * To be determined
[2020-09-29] MEDS: ASPIRIN 81 MG ECTAB PO SCH (12:32)
[2020-09-29] MEDS: VENLAFAXINE HCL XR 75 MG CAPXR PO SCH (12:33)
[2020-09-29] MEDS: PANTOprazole 40 MG TAB PO SCH (12:33)
[2020-09-29] MEDS: FOLIC ACID 1 MG TAB PO SCH (12:33)
[2020-09-29] MEDS: METOPROLOL SUCC 25MG EXT REL TAB PO SCH (12:33)
[2020-09-29] MEDS: MULTIVITAMIN TAB PO SCH (12:33)
[2020-09-29] MEDS: FUROSEMIDE 40 MG TAB PO SCH (12:33)
[2020-09-29] MEDS: ATORVASTATIN 40 MG TAB PO SCH (12:33)
[2020-09-29] MEDS: amLODIPine BESYLATE 5 MG TAB PO SCH (12:33)
[2020-09-29] MEDS: CLOPIDOGREL BISULFATE 75 MG TAB PO SCH (12:33)
[2020-09-29] MEDS: FINASTERIDE 5 MG TAB PO SCH (12:34)
[2020-09-29] MEDS: LACTOBACILLUS ACIDOPHILUS 1 GM PACK PO SCH ×2 (12:34→18:02)
[2020-09-29] MEDS: POTASSIUM CHLORIDE CRTAB 20 MEQ TABCR PO SCH (12:36)
--- NOTE | 2020-09-29 17:59 | Hospitalist Progress Note ---
Date of Service September 29, 2020 Assessment & Plan (1) Acute osteomyelitis of left hand including fingers: (2) Cellulitis of left upper extremity: (3) Uncontrolled diabetes mellitus: (4) HTN (hypertension): (5) CAD (coronary artery disease): (6) Alcohol abuse: (7) Hypothyroidism: (8) BPH (benign prostatic hyperplasia): (9) CHANTELL (obstructive sleep apnea): Patient is a 65 yr old male with H/O Uncontrolled Type 1 DM, hypothyroidism, CHANTELL on CPAP, asthma, HTN, CAD, GERD, Obesity, history of NSTEMI and other medical problems listed below who was sent in from [facility] due to worsening appearance of left hand cellulitis was found to have osteomyelitis in multiple digits on left hand. Acute osteomyelitis of left hand Cellulitis of left Upper Extremity -Hand CT:There is postoperative change from amputations involving the third and fifth fingers as above. There is erosion/destructive change involving the first distal phalanx, the second distal phalanx, and the fifth middle phalanx. This could represent infection/osteomyelitis and/or changes from previous amputation. Clinical correlation will be essential. There is a large wound in the distal fourth digit with significant subcutaneous gas as well as intraosseous gas involving the fourth distal phalanx. This is consistent with osteomyelitis. Diffuse soft tissue edema is present throughout the wrist and hand, greatest in the fourth digit. This is typical for cellulitis. No organized fluid collection is clearly identified to indicate abscess. A metallic foreign body is again noted within the dorsal soft tissues at the level of the second metatarsal head. -S/P left ring finger amputation by POD # 0 -Blood Cx: Negative to date -Wound Cx: Staph aureus -Wound Cx from 09/29/20:Pending -Empirically on vancomycin, Zosyn -Appreciate orthopedics input -Continue wound care Diarrhea C. difficile negative Imodium PRN Uncontrolled diabetes Admits to being noncompliant HbA1C: 10.6 in July 2020 Using insulin pump at home Glycemic consult placed for SQ mgmt, pump education Monitor BGs Hypertension Stable Continue amlodipine, Toprol, losartan CAD H/O NSTEMI Continue aspirin, plavix, statin Alcohol abuse Drinks 1 pint whiskey daily On gabapentin protocol Monitor for alcohol withdrawal Continue thiamine, folic acid Hypothyroidism Continue levothyroxine BPH Continue tamsulosin, finasteride. Bladder scan as needed CHANTELL CPAP DVT Px: SQ heparin Code status: FULL CODE Admission and Anticipated Discharge Date Admission Date: September 27, 2020 Subjective Patient is seen and examined at bedside Sitting in chair comfortably Denies any pain at surgical site of left hand Offers no other complaints Diarrhea better today Denies chest pain, dyspnea, abdominal pain, nausea, vomiting Review of Systems Review of Systems: All systems reviewed & are unremarkable except as noted in HPI & below Physical Exam Physical Exam: Physical Exam: Vitals signs as noted above General Appearance:Obese, no apparent distress Head: normocephalic, Atraumatic Eyes: normal inspection, EOMI Neck: supple, Trachea midline Respiratory/Chest: Normal breath sounds, CTA Cardiovascular: S1, S2, No murmur Abdomen/GI:Soft, Non tender, Bowel sounds present Extremities/Musculoskeletal:normal inspection, LUE and RLE edema, + Loss of fingers B/L, Left hand in surgical dressing Neurologic/Psych:AAOX3, grossly no focal neurological deficits Skin: normal color, warm Results & Data Results & Data ([facility]) Vital Signs (Past 12 Hours) Vital Signs Temp Pulse Resp BP BP Pulse Ox 09/29/20 15:53 36.5 C 73 20 138/90 97 09/29/20 11:54 36.9 C 75 18 143/85 H 95 09/29/20 09:32 36.9 C 76 16 130/80 93 09/29/20 09:05 71 21 130/88 92 09/29/20 08:55 36.4 C L 74 22 138/82 93 09/29/20 08:45 71 21 128/85 92 09/29/20 08:35 36.2 C L 78 12 135/89 93 Laboratory Results Short CBC 09/29/20 Range/Units 07:05 WBC 8.69 (4.8-10.8) K/uL Hgb 9.0 L (14.0-18.0) g/dL Hct 28.5 L (42-52) % Plt Count 351 (130-400) K/uL BMP 09/29/20 07:05 Sodium 133 L Potassium 4.1 Chloride 103 Carbon Dioxide 22 BUN 15 D Creatinine 1.28 Glucose 234 H Calcium 8.8
[2020-09-29] MEDS ORDERED: LOPERAMIDE HCL 2 MG CAP PO PRN (18:03)
[2020-09-29] MEDS: TAMSULOSIN HCL 0.4 MG CAP PO SCH (21:18)
[2020-09-30] MEDS: GABAPENTIN 600 MG TAB PO SCH ×2 (00:59→12:33)
[2020-09-30] MEDS: PIPERACILLIN/TAZOBACTAM 4.5 GM in DEXTROSE 5% 100 ML IV SCH ×3 (05:58→21:13)
[2020-09-30] MEDS: LEVOTHYROXINE SODIUM 125 MCG TABLET PO SCH (06:03)
[2020-09-30] MEDS ORDERED: LACTOBACILLUS ACIDOPHILUS 1 GM PACK PO SCH (08:00)
--- NOTE | 2020-09-30 08:01 | Operative Report (OR) ---
DATE OF OPERATION: 09/29/2020 PREOPERATIVE DIAGNOSIS: Left ring finger diabetic finger infection. POSTOPERATIVE DIAGNOSIS: Left ring finger diabetic finger infection. PROCEDURE: Left ring finger amputation at the metacarpophalangeal level. SURGEON: Romero Rico MD SLIDE DEVELOPER: Marty Gallagher PA-C, who was necessary for prepping, draping, retraction, exposure, and closure. ANESTHESIA: Local with monitored anesthesia care. INDICATIONS: This is a gentleman with a progressive diabetic infection of the finger. He presents with a swollen finger with drainage of pus at the tip of the finger. He presents for amputation. The risks and benefits have been discussed including, but not limited to, risk of infection, nerve injury, stiffness, loss of motion, failure to improve, etc. Reasonable outcomes and options of treatment were discussed. An explanation of appropriate alternatives to the procedure that may be advantageous were discussed and their risks and benefits, as well as the risks and benefits of not proceeding with treatment. I offered to answer any additional inquiries concerning the treatment involved. All the patient's questions were answered. The patient is agreeable, understanding of the treatment plan and alternatives, and wishes to proceed with the treatment plan. DESCRIPTION OF OPERATION: I injected a mixture of lidocaine and Marcaine in the local area as a digital block. I performed an elliptical incision over the MP joint, leaving a large flap of volar tissue for closure. Dissection was carried down through the skin and subcutaneous tissues. I incised the extensor tendon and identified the MP joint. The MP joint was then disarticulated and I incised the surrounding tissues and the volar plate. I incised the flexor tendons and allowed them to retract proximally. I then passed the finger off the table. We sent a culture of the tip of the finger as well. Incision was copiously irrigated with 1 liter of normal saline. I performed traction neurectomies and cauterized the digital arteries. Tourniquet was let down, hemostasis was obtained with bipolar electrocautery. There was adequate bleeding in the area to allow for healing. Skin was closed with jerrell. The patient was placed in a soft dressing and sent to PACU in stable condition. Postoperative plan will be range of motion and activity as tolerated. We will change dressing in 48 hours. He may follow up with my physician marketing operations assistant in 3 weeks for staple removal. I attest to the content of the Intraoperative Record and any orders documented therein. Any exception s are noted below.
[2020-09-30] MEDS ORDERED: VANCOMYCIN TROUGH ONE (08:30)
[2020-09-30] MEDS: INSULIN ASPART 100 UNITS/ML 3 ML PEN SC SCH ×5 (08:38→21:01)
[2020-09-30] MEDS: CLOPIDOGREL BISULFATE 75 MG TAB PO SCH (08:46)
[2020-09-30] MEDS: THIAMINE HCL 100 MG TAB PO SCH (08:46)
[2020-09-30] MEDS: PANTOprazole 40 MG TAB PO SCH (08:46)
[2020-09-30] MEDS: LOSARTAN POTASSIUM 50 MG TAB PO SCH ×2 (08:46→21:14)
[2020-09-30] MEDS: LACTOBACILLUS ACIDOPHILUS 1 GM PACK PO SCH ×3 (08:46→17:38)
[2020-09-30] MEDS: FINASTERIDE 5 MG TAB PO SCH (08:46)
[2020-09-30] MEDS: POTASSIUM CHLORIDE CRTAB 20 MEQ TABCR PO SCH (08:47)
[2020-09-30] MEDS: VENLAFAXINE HCL XR 75 MG CAPXR PO SCH (08:47)
[2020-09-30] MEDS: CEROVITE ADV FORMULA TAB PO SCH (08:47)
[2020-09-30] MEDS: MULTIVITAMIN TAB PO SCH (08:47)
[2020-09-30] MEDS: FUROSEMIDE 40 MG TAB PO SCH (08:47)
[2020-09-30] MEDS: FOLIC ACID 1 MG TAB PO SCH (08:47)
[2020-09-30] MEDS: ASPIRIN 81 MG ECTAB PO SCH (08:47)
[2020-09-30] MEDS: ATORVASTATIN 40 MG TAB PO SCH (08:47)
[2020-09-30] MEDS: DOCUSATE SODIUM/SENNA 50/8.6MG TAB PO SCH (08:48)
[2020-09-30] MEDS: METOPROLOL SUCC 25MG EXT REL TAB PO SCH (08:48)
[2020-09-30] MEDS: amLODIPine BESYLATE 5 MG TAB PO SCH (08:48)
[2020-09-30] MEDS: INSULIN GLARGINE SOLOSTAR 100 UNITS/ML 3 ML PEN SC SCH (08:50)
[2020-09-30] MEDS: VANCOMYCIN HCL 1,500 MG in SODIUM CHLORIDE 0.9% 500 ML IV SCH (08:52)
[2020-09-30 09:24] LABS: Basophils # (auto) 0.08 K/uL (0-0.2); Basophils % (auto) 1.2 %; Eosinophils # (auto) 0.37 K/uL (0-0.5); Eosinophils % (auto) 5.7 %; Giant Platelets 2+; Hematocrit (blood only) 30.9 % (42-52); Hemoglobin 9.8 g/dL (14.0-18.0); Immature Granulocytes # (auto) 0.05 K/uL (0.00-0.02); Immature Granulocytes % (auto) 0.8 %; Lymphocytes # (auto) 1.11 K/uL (1.2-3.4); Mean Corpuscular Hemoglobin 28.4 pg (25-34); Mean Corpuscular Hgb Conc 31.7 g/dL (32-36); Mean Corpuscular Volume 89.6 fL (80-100); Mean Platelet Volume 9.7 fL (7.4-10.4); Monocytes # (auto) 0.89 K/uL (0.11-0.59); Monocytes % (auto) 13.6 %; Neutrophils # (auto) 4.03 K/uL (1.4-6.5); Neutrophils % (auto) 61.7 %; Platelet Count 398 K/uL (130-400); Polychromasia 1+; RDW Coefficient of Variation 16.4 % (11.5-14.5); RDW Standard Deviation 53.7 fL (36.4-46.3); Red Blood Count 3.45 M/uL (4.7-6.1); Toxic Granulation 1+; Toxic Vacuolation 1+; White Blood Count 6.53 K/uL (4.8-10.8)
[2020-09-30 09:25] LABS: BUN Creatinine Ratio 10.4 (10-20); Calcium 9.5 mg/dl (8.5-10.1); Creatinine Clr Calc Pharmacy 85.8 ml/min; Est GFR (African American) 79.7; Est GFR (Non-African American) 68.8; Magnesium 2.1 mg/dl (1.8-2.4); Potassium 4.2 mmol/L (3.5-5.1)
--- NOTE | 2020-09-30 10:51 | Pharmacy Report ---
Pharmacy Abx Dose Short Note - Date of Service September 30, 2020 - Assessment & Plan Assessment 65 year old M receiving VANCOMYCIN + ZOSYN for treatment of L hand cellulitis / osteomyelitis Patient is s/p amputation of L ring finger at MCP level Day # 4 of antimicrobial therapy Thus far only MSSA growing in cx's however these are preliminary results Renal fxn stable Plan Vancomycin * Trough level of 26.6 mcg/mL is supratherapeutic. This was drawn after 4 doses 1500mg Q 12 hrs. Level was drawn at the appropriate time and prior doses hung mostly on schedule. * Change to 1500 mg IV every 18 hours. Of note, patient received ~ 1/3rd or less of this AM's dose. Will begin this new regimen at 2200 this evening as a result. * Goal AUC/LEWIS: 400-600mcg/mL * Will recheck trough level w/ 3rd dose of new regimen Zosyn * eCrCl > 20cc/min * BMI >/= 35, continue 4.5gm ext-infusion Q 8 hrs Pharmacy will continue to follow and will adjust dose/frequency as necessary. Thank you.
--- NOTE | 2020-09-30 11:30 | Pharmacy Report ---
Pharmacy Glycemic Short Note 2 - Date of Service September 30, 2020 - Glycemic Short BSG Results (Last 24 hours): 09/29/20 09/29/20 09/29/20 11:49 16:13 20:24 Glucose POC Glucose 272 H 184 H 144 H 09/30/20 09/30/20 07:38 08:29 Glucose 141 H POC Glucose 126 H OUTPATIENT ANTIDIABETIC REGIMEN: * NovoLog insulin pump: Settings as listed from July 2020: * Basal Rate 1.7 units/hr (40.8units per day) * Correction Factor 21mg/dL/unit * Carb Ratio 1 unit per 5gm CHO consumed * HbA1c = 10.6% (07/13/20) ASSESSMENT: 09/30: * BSGs well controlled since yesterday afternoon * 128 units SQ insulin admin over last 24 hrs * Fasting BSG 126 this AM with 70 units basal on board. Will begin to titrate down basal dose however given data from prior admissions. * Patient has exhibited falling BSGs in the evenings on this and prior admissions. Will adjust Novolog CF/CR such that lower doses are given with dinner and HS. 09/29: * Mr. Hatfield received a total of 163 units of insulin yesterday * 65 units basal + 98 units bolus * BSGs were [id number] mg/dL, uncontrolled * Had an episode of asymptomatic hypoglycemia at bedtime last night which was treated with 30 g of CHO. * Likely related to tight carb ratio * Patient was NPO this morning for surgery so Lantus was reduced to 50 units. He has tested positive for Covid as well so was transferred to covid unit. No steroids ordered at this time. * Fasting and Lunch BSGs were elevated at 217 and 272 mg/dL so added an extra 20 units of Lantus on at lunch given he now has a diet ordered * Will also tighten carb ratio slightly with lunch PLAN FOR INPATIENT GLYCEMIC CONTROL: * Basal insulin - decrease * Lantus 55 units SC AM * Bolus insulin - tightened CR * NovoLog per scale ACHS or Q6hrs while NPO * Goal Range: Low 110 mg/dL - High 140 mg/dL * Correction Factor: 12 mg/dL/unit w/ breakfast and lunch; 20mg/dL/unit w/ dinner and HS * Nutritional / Prandial insulin per carb ratio of 1 unit per 3 grams CHO w/ breakfast and lunch; 1 uniter per 4grams CHO w/ dinner and HS DISCHARGE RECOMMENDATIONS: * To be determined
[2020-09-30] MEDS: HEPARIN SOD 5,000 UNIT/0.5 ML VIAL SQ SCH ×2 (12:34→21:14)
[2020-09-30] MEDS ORDERED: VANCOMYCIN HCL 1,500 MG in SODIUM CHLORIDE 0.9% 500 ML IV SCH (16:00)
--- NOTE | 2020-09-30 16:16 | Hospitalist Progress Note ---
Date of Service September 30, 2020 Assessment & Plan (1) Acute osteomyelitis of left hand including fingers: (2) Cellulitis of left upper extremity: (3) Uncontrolled diabetes mellitus: (4) HTN (hypertension): (5) CAD (coronary artery disease): (6) Alcohol abuse: (7) Hypothyroidism: (8) BPH (benign prostatic hyperplasia): (9) CHANTELL (obstructive sleep apnea): Patient is a 65 yr old male with H/O Uncontrolled Type 1 DM, hypothyroidism, CHANTELL on CPAP, asthma, HTN, CAD, GERD, Obesity, history of NSTEMI and other medical problems listed below who was sent in from [facility] due to worsening appearance of left hand cellulitis was found to have osteomyelitis in multiple digits on left hand. Acute osteomyelitis of left hand Cellulitis of left Upper Extremity -Hand CT:There is postoperative change from amputations involving the third and fifth fingers as above. There is erosion/destructive change involving the first distal phalanx, the second distal phalanx, and the fifth middle phalanx. This could represent infection/osteomyelitis and/or changes from previous amputation. Clinical correlation will be essential. There is a large wound in the distal fourth digit with significant subcutaneous gas as well as intraosseous gas involving the fourth distal phalanx. This is consistent with osteomyelitis. Diffuse soft tissue edema is present throughout the wrist and hand, greatest in the fourth digit. This is typical for cellulitis. No organized fluid collection is clearly identified to indicate abscess. A metallic foreign body is again noted within the dorsal soft tissues at the level of the second metatarsal head. -S/P left ring finger amputation by POD # 1 -Blood Cx: Negative to date -Wound Cx: MSSA -Wound Cx from 09/29/20: MSSA -Empirically on vancomycin, Zosyn>>DC Vancomycin -Appreciate orthopedics input -Continue wound care -Will Consult ID for further antibiotic recommendations given recurrent osteomyelitis Diarrhea C. difficile negative Imodium PRN Uncontrolled diabetes Admits to being noncompliant HbA1C: 10.6 in July 2020 Using insulin pump at home Glycemic consult placed for SQ mgmt, pump education Monitor BGs Hypertension Stable Continue amlodipine, Toprol, losartan CAD H/O NSTEMI Continue aspirin, plavix, statin Alcohol abuse Drinks 1 pint whiskey daily On gabapentin protocol Monitor for alcohol withdrawal Continue thiamine, folic acid Hypothyroidism Continue levothyroxine BPH Continue tamsulosin, finasteride. Bladder scan as needed CHANTELL CPAP DVT Px: SQ heparin Code status: FULL CODE Admission and Anticipated Discharge Date Admission Date: September 27, 2020 Subjective Patient is seen and examined at bedside No new complaints Diarrhea improved Discussed with orthopedics today Denies chest pain, dyspnea, abdominal pain, nausea, vomiting Review of Systems Review of Systems: All systems reviewed & are unremarkable except as noted in HPI & below Physical Exam Physical Exam: Physical Exam: Vitals signs as noted above General Appearance:Obese, no apparent distress Head: normocephalic, Atraumatic Eyes: normal inspection, EOMI Neck: supple, Trachea midline Respiratory/Chest: Normal breath sounds, CTA Cardiovascular: S1, S2, No murmur Abdomen/GI:Soft, Non tender, Bowel sounds present Extremities/Musculoskeletal:normal inspection, LUE and RLE edema, + Loss of fingers B/L, Left hand in surgical dressing Neurologic/Psych:AAOX3, grossly no focal neurological deficits Skin: normal color, warm Results & Data Results & Data ([facility]) Vital Signs (Past 12 Hours) Vital Signs Temp Pulse Resp BP Pulse Ox 09/30/20 08:44 37 C 77 16 160/95 H 97 Laboratory Results Short CBC 09/30/20 Range/Units 08:29 WBC 6.53 (4.8-10.8) K/uL Hgb 9.8 L (14.0-18.0) g/dL Hct 30.9 L (42-52) % Plt Count 398 (130-400) K/uL BMP 09/30/20 08:29 Sodium 134 L Potassium 4.2 Chloride 104 Carbon Dioxide 23 BUN 12 Creatinine 1.13 Glucose 141 H Calcium 9.5
--- NOTE | 2020-09-30 18:33 | Orthopedic Progress Note ---
Date of Service September 30, 2020 Assessment & Plan (1) Acute osteomyelitis of left hand including fingers: Postop day 1 status post amputation of left ring finger Continue IV antibiotics. Culture showing staph aureus. Plan for dressing change tomorrow. Elevation of the left upper extremity when at rest. Admission and Anticipated Discharge Date Admission Date: September 27, 2020 Subjective Postop day 1 Patient sitting in his chair at the bedside. Patient is comfortable. States he is not having any pain. No other complaints at this time. Physical Exam Physical Exam: Dressings are intact and dry. No overt drainage noted. Results & Data ([facility]) Vital Signs (Past 12 Hours) Vital Signs Temp Pulse Resp BP Pulse Ox 09/30/20 17:00 36.9 C 80 16 133/85 97 09/30/20 08:44 37 C 77 16 160/95 H 97
[2020-09-30] MEDS: TAMSULOSIN HCL 0.4 MG CAP PO SCH (21:14)
[2020-10-01] MEDS: PIPERACILLIN/TAZOBACTAM 4.5 GM in DEXTROSE 5% 100 ML IV SCH ×3 (05:59→21:07)
[2020-10-01] MEDS: HEPARIN SOD 5,000 UNIT/0.5 ML VIAL SQ SCH ×3 (05:59→21:09)
[2020-10-01] MEDS: LEVOTHYROXINE SODIUM 125 MCG TABLET PO SCH (05:59)
[2020-10-01 07:31] LABS: Basophils # (auto) 0.09 K/uL (0-0.2); Basophils % (auto) 1.6 %; Eosinophils # (auto) 0.45 K/uL (0-0.5); Eosinophils % (auto) 7.8 %; Hematocrit (blood only) 31.4 % (42-52); Immature Granulocytes # (auto) 0.09 K/uL (0.00-0.02); Immature Granulocytes % (auto) 1.6 %; Lymphocytes # (auto) 1.27 K/uL (1.2-3.4); Lymphocytes % (auto) 22.1 %; Mean Corpuscular Hemoglobin 28.6 pg (25-34); Mean Corpuscular Hgb Conc 31.8 g/dL (32-36); Mean Corpuscular Volume 89.7 fL (80-100); Mean Platelet Volume 9.7 fL (7.4-10.4); Monocytes # (auto) 0.95 K/uL (0.11-0.59); Monocytes % (auto) 16.5 %; Neutrophils % (auto) 50.4 %; Platelet Count 420 K/uL (130-400); RDW Coefficient of Variation 16.4 % (11.5-14.5); RDW Standard Deviation 53.8 fL (36.4-46.3); White Blood Count 5.75 K/uL (4.8-10.8)
[2020-10-01] MEDS: INSULIN ASPART 100 UNITS/ML 3 ML PEN SC SCH ×4 (08:00→21:36)
[2020-10-01 08:07] LABS: BUN Creatinine Ratio 11.6 (10-20); Calcium 9.6 mg/dl (8.5-10.1); Creatinine Clr Calc Pharmacy 83.2 ml/min; Est GFR (African American) 76.4; Magnesium 2.1 mg/dl (1.8-2.4); Potassium 3.7 mmol/L (3.5-5.1)
[2020-10-01] MEDS: CEROVITE ADV FORMULA TAB PO SCH (08:32)
[2020-10-01] MEDS: METOPROLOL SUCC 25MG EXT REL TAB PO SCH (08:32)
[2020-10-01] MEDS: VENLAFAXINE HCL XR 75 MG CAPXR PO SCH (08:32)
[2020-10-01] MEDS: LACTOBACILLUS ACIDOPHILUS 1 GM PACK PO SCH ×3 (08:32→17:38)
[2020-10-01] MEDS: THIAMINE HCL 100 MG TAB PO SCH (08:32)
[2020-10-01] MEDS: amLODIPine BESYLATE 5 MG TAB PO SCH (08:32)
[2020-10-01] MEDS: PANTOprazole 40 MG TAB PO SCH (08:32)
[2020-10-01] MEDS: FUROSEMIDE 40 MG TAB PO SCH (08:32)
[2020-10-01] MEDS: FOLIC ACID 1 MG TAB PO SCH (08:32)
[2020-10-01] MEDS: FINASTERIDE 5 MG TAB PO SCH (08:32)
[2020-10-01] MEDS: MULTIVITAMIN TAB PO SCH (08:33)
[2020-10-01] MEDS: CLOPIDOGREL BISULFATE 75 MG TAB PO SCH (08:33)
[2020-10-01] MEDS: ATORVASTATIN 40 MG TAB PO SCH (08:33)
[2020-10-01] MEDS: ASPIRIN 81 MG ECTAB PO SCH (08:33)
[2020-10-01] MEDS: INSULIN GLARGINE SOLOSTAR 100 UNITS/ML 3 ML PEN SC SCH (08:35)
[2020-10-01] MEDS: POTASSIUM CHLORIDE CRTAB 20 MEQ TABCR PO SCH (08:39)
[2020-10-01] MEDS: DOCUSATE SODIUM/SENNA 50/8.6MG TAB PO SCH (08:40)
[2020-10-01] MEDS: LOSARTAN POTASSIUM 50 MG TAB PO SCH ×2 (09:53→19:44)
--- NOTE | 2020-10-01 10:53 | Pharmacy Report ---
Pharmacy Glycemic Short Note 2 - Date of Service October 01, 2020 - Glycemic Short BSG Results (Last 24 hours): 09/30/20 09/30/20 09/30/20 11:54 16:48 20:29 Glucose POC Glucose 199 H 179 H 187 H 10/01/20 10/01/20 06:27 07:39 Glucose 100 H POC Glucose 132 H OUTPATIENT ANTIDIABETIC REGIMEN: * NovoLog insulin pump: Settings as listed from July 2020: * Basal Rate 1.7 units/hr (40.8units per day) * Correction Factor 21mg/dL/unit * Carb Ratio 1 unit per 5gm CHO consumed * HbA1c = 10.6% (07/13/20) ASSESSMENT: 10/01 * BSGs well controlled for this patient over last 24 hrs given h/o BSG portillo iability * 104 units SQ administered over last 24 hrs while tolerating a diet * Fasting BSG at goal this AM, FBS = 100-132, with 55 units basal on board - will continue * Post-prandial BSGs mostly well controlled with current Novolog orders - will continue 09/30 * BSGs well controlled since yesterday afternoon * 128 units SQ insulin admin over last 24 hrs * Fasting BSG 126 this AM with 70 units basal on board. Will begin to titrate down basal dose however given data from prior admissions. * Patient has exhibited falling BSGs in the evenings on this and prior admissions. Will adjust Novolog CF/CR such that lower doses are given with dinner and HS. PLAN FOR INPATIENT GLYCEMIC CONTROL: * Basal insulin - no change * Lantus 55 units SC AM * Bolus insulin - no change * NovoLog per scale ACHS or Q6hrs while NPO * Goal Range: Low 110 mg/dL - High 140 mg/dL * Correction Factor: 12 mg/dL/unit w/ breakfast and lunch; 20mg/dL/unit w/ dinner and HS * Nutritional / Prandial insulin per carb ratio of 1 unit per 3 grams CHO w/ breakfast and lunch; 1 uniter per 4grams CHO w/ dinner and HS DISCHARGE RECOMMENDATIONS: * To be determined
--- NOTE | 2020-10-01 11:21 | Orthopedic Progress Note ---
Date of Service October 01, 2020 Assessment & Plan (1) Acute osteomyelitis of left hand including fingers: Postop day 2 status post amputation of left ring finger Continue IV antibiotics. Culture showing staph aureus. Daily dressings. Elevation of the left upper extremity when at rest. Ortho will sign off at this time. Please call with any questions. Instructions placed in DC section. Admission and Anticipated Discharge Date Admission Date: September 27, 2020 Subjective POD 2 Pt sitting up in chair at bedside. No complaints. Pain controlled. Physical Exam Physical Exam: Dressings removed. Incision is C/D/I. No erythema. No purulence. Minimal drainage on the dressing. Wound redressed. Results & Data ([facility]) Vital Signs (Past 12 Hours) Vital Signs Temp Pulse Resp BP BP Pulse Ox 10/01/20 07:36 36.6 C 68 18 137/85 97 10/01/20 03:17 36.4 C L 65 20 149/78 H 94 09/30/20 23:42 36.5 C 65 16 112/69 93
[2020-10-01] MEDS ORDERED: GABAPENTIN 600 MG TAB PO SCH (12:00)
--- NOTE | 2020-10-01 16:51 | Hospitalist Progress Note ---
Date of Service October 01, 2020 Assessment & Plan (1) Acute osteomyelitis of left hand including fingers: (2) Cellulitis of left upper extremity: (3) Uncontrolled diabetes mellitus: (4) HTN (hypertension): (5) CAD (coronary artery disease): (6) Alcohol abuse: (7) Hypothyroidism: (8) BPH (benign prostatic hyperplasia): (9) CHANTELL (obstructive sleep apnea): Patient is a 65 yr old male with H/O Uncontrolled Type 1 DM, hypothyroidism, CHANTELL on CPAP, asthma, HTN, CAD, GERD, Obesity, history of NSTEMI and other medical problems listed below who was sent in from [facility] due to worsening appearance of left hand cellulitis was found to have osteomyelitis in multiple digits on left hand. Acute osteomyelitis of left hand Cellulitis of left Upper Extremity -Hand CT:There is postoperative change from amputations involving the third and fifth fingers as above. There is erosion/destructive change involving the first distal phalanx, the second distal phalanx, and the fifth middle phalanx. This could represent infection/osteomyelitis and/or changes from previous amputation. Clinical correlation will be essential. There is a large wound in the distal fourth digit with significant subcutaneous gas as well as intraosseous gas involving the fourth distal phalanx. This is consistent with osteomyelitis. Diffuse soft tissue edema is present throughout the wrist and hand, greatest in the fourth digit. This is typical for cellulitis. No organized fluid collection is clearly identified to indicate abscess. A metallic foreign body is again noted within the dorsal soft tissues at the level of the second metatarsal head. -S/P left ring finger amputation by POD # 2 -Blood Cx: Negative to date -Wound Cx: MSSA -Wound Cx from 09/29/20: MSSA -Empirically on vancomycin, Zosyn>>DC Vancomycin -Appreciate orthopedics input -Continue wound care -ID consulted pending -Had dressing changed today -Needs follow-up with orthopedics upon discharge Diarrhea C. difficile negative Imodium PRN Uncontrolled diabetes Admits to being noncompliant HbA1C: 10.6 in July 2020 Using insulin pump at home Glycemic consult placed for SQ mgmt, pump education Monitor BGs Hypertension Stable Continue amlodipine, Toprol, losartan CAD H/O NSTEMI Continue aspirin, plavix, statin Alcohol abuse Drinks 1 pint whiskey daily On gabapentin protocol Monitor for alcohol withdrawal Continue thiamine, folic acid No withdrawal symptoms Hypothyroidism Continue levothyroxine BPH Continue tamsulosin, finasteride. Bladder scan as needed CHANTELL CPAP DVT Px: SQ heparin Code status: FULL CODE Admission and Anticipated Discharge Date Admission Date: September 27, 2020 Subjective Patient is seen and examined at bedside Had wound dressing changed today by orthopedics Patient prefers to ID recommendations prior to discharge States having minimal diarrhea today Offers no other complaints Denies chest pain, dyspnea, abdominal pain, nausea, vomiting Review of Systems Review of Systems: All systems reviewed & are unremarkable except as noted in HPI & below Physical Exam Physical Exam: Physical Exam: Vitals signs as noted above General Appearance:Obese, no apparent distress Head: normocephalic, Atraumatic Eyes: normal inspection, EOMI Neck: supple, Trachea midline Respiratory/Chest: Normal breath sounds, CTA Cardiovascular: S1, S2, No murmur Abdomen/GI:Soft, Non tender, Bowel sounds present Extremities/Musculoskeletal:normal inspection, LUE and RLE edema, + Loss of fingers B/L, Left hand in surgical dressing Neurologic/Psych:AAOX3, grossly no focal neurological deficits Skin: normal color, warm Results & Data Results & Data ([facility]) Vital Signs (Past 12 Hours) Vital Signs Temp Pulse Resp BP BP Pulse Ox 10/01/20 15:24 36.7 C 72 18 119/83 97 10/01/20 11:53 36.9 C 75 18 126/81 95 10/01/20 07:36 36.6 C 68 18 137/85 97 Laboratory Results Short CBC 10/01/20 Range/Units 06:27 WBC 5.75 (4.8-10.8) K/uL Hgb 10.0 L (14.0-18.0) g/dL Hct 31.4 L (42-52) % Plt Count 420 H (130-400) K/uL BMP 10/01/20 06:27 Sodium 137 Potassium 3.7 Chloride 104 Carbon Dioxide 27 BUN 14 Creatinine 1.17 Glucose 100 H Calcium 9.6
[2020-10-01] MEDS: TAMSULOSIN HCL 0.4 MG CAP PO SCH (19:45)
[2020-10-02] MEDS: PIPERACILLIN/TAZOBACTAM 4.5 GM in DEXTROSE 5% 100 ML IV SCH (05:51)
[2020-10-02] MEDS: HEPARIN SOD 5,000 UNIT/0.5 ML VIAL SQ SCH (05:54)
[2020-10-02] MEDS: LEVOTHYROXINE SODIUM 125 MCG TABLET PO SCH (05:56)
[2020-10-02 06:05] LABS: Hematocrit (blood only) 31.8 % (42-52); Hemoglobin 10.1 g/dL (14.0-18.0)
[2020-10-02 06:48] LABS: BUN Creatinine Ratio 14.3 (10-20); Calcium 9.1 mg/dl (8.5-10.1); Est GFR (Non-African American) 52.6; Potassium 4.2 mmol/L (3.5-5.1)
[2020-10-02 07:01] LABS: Beta-Hydroxybutyrate 5.27 mg/dl (0.2-2.81)
[2020-10-02] MEDS: FOLIC ACID 1 MG TAB PO SCH (08:27)
[2020-10-02] MEDS: PANTOprazole 40 MG TAB PO SCH (08:27)
[2020-10-02] MEDS: LACTOBACILLUS ACIDOPHILUS 1 GM PACK PO SCH ×2 (08:27→12:18)
[2020-10-02] MEDS: THIAMINE HCL 100 MG TAB PO SCH (08:27)
[2020-10-02] MEDS: CEROVITE ADV FORMULA TAB PO SCH (08:27)
[2020-10-02] MEDS: FUROSEMIDE 40 MG TAB PO SCH (08:27)
[2020-10-02] MEDS: amLODIPine BESYLATE 5 MG TAB PO SCH (08:27)
[2020-10-02] MEDS: FINASTERIDE 5 MG TAB PO SCH (08:28)
[2020-10-02] MEDS: ASPIRIN 81 MG ECTAB PO SCH (08:28)
[2020-10-02] MEDS: VENLAFAXINE HCL XR 75 MG CAPXR PO SCH (08:28)
[2020-10-02] MEDS: CLOPIDOGREL BISULFATE 75 MG TAB PO SCH (08:28)
[2020-10-02] MEDS: MULTIVITAMIN TAB PO SCH (08:28)
[2020-10-02] MEDS: ATORVASTATIN 40 MG TAB PO SCH (08:28)
[2020-10-02] MEDS: METOPROLOL SUCC 25MG EXT REL TAB PO SCH (08:29)
[2020-10-02] MEDS: INSULIN GLARGINE SOLOSTAR 100 UNITS/ML 3 ML PEN SC SCH (08:30)
[2020-10-02] MEDS: INSULIN ASPART 100 UNITS/ML 3 ML PEN SC SCH ×2 (08:30→12:18)
[2020-10-02] MEDS: DOCUSATE SODIUM/SENNA 50/8.6MG TAB PO SCH (08:35)
[2020-10-02] MEDS: POTASSIUM CHLORIDE CRTAB 20 MEQ TABCR PO SCH (08:35)
[2020-10-02] MEDS ORDERED: GABAPENTIN 600 MG TAB PO SCH (09:00)
[2020-10-02] MEDS: LOSARTAN POTASSIUM 50 MG TAB PO SCH (09:08)
[2020-10-02] MEDS ORDERED: VANCOMYCIN TROUGH ONE (09:30)
--- NOTE | 2020-10-02 09:32 | Hospitalist Progress Note ---
Date of Service October 02, 2020 Assessment & Plan (1) Acute osteomyelitis of left hand including fingers: (2) Cellulitis of left upper extremity: (3) Uncontrolled diabetes mellitus: (4) HTN (hypertension): (5) CAD (coronary artery disease): (6) Alcohol abuse: (7) Hypothyroidism: (8) BPH (benign prostatic hyperplasia): (9) CHANTELL (obstructive sleep apnea): Patient is a 65 yr old male with H/O Uncontrolled Type 1 DM, hypothyroidism, CHANTELL on CPAP, asthma, HTN, CAD, GERD, Obesity, history of NSTEMI and other medical problems listed below who was sent in from [facility] due to worsening appearance of left hand cellulitis was found to have osteomyelitis in multiple digits on left hand. Acute osteomyelitis of left hand Cellulitis of left Upper Extremity -Hand CT:There is postoperative change from amputations involving the third and fifth fingers as above. There is erosion/destructive change involving the first distal phalanx, the second distal phalanx, and the fifth middle phalanx. This could represent infection/osteomyelitis and/or changes from previous amputation. Clinical correlation will be essential. There is a large wound in the distal fourth digit with significant subcutaneous gas as well as intraosseous gas involving the fourth distal phalanx. This is consistent with osteomyelitis. Diffuse soft tissue edema is present throughout the wrist and hand, greatest in the fourth digit. This is typical for cellulitis. No organized fluid collection is clearly identified to indicate abscess. A metallic foreign body is again noted within the dorsal soft tissues at the level of the second metatarsal head. 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 difficile negative Imodium PRN Uncontrolled diabetes Admits to being noncompliant HbA1C: 10.6 in July 2020 Using insulin pump at home Glycemic consult placed for SQ mgmt, pump education Monitor BGs Hypertension Stable Continue amlodipine, Toprol, losartan CAD H/O NSTEMI Continue aspirin, plavix, statin Alcohol abuse Drinks 1 pint whiskey daily On gabapentin protocol Monitor for alcohol withdrawal Continue thiamine, folic acid No withdrawal symptoms Hypothyroidism Continue levothyroxine BPH Continue tamsulosin, finasteride. Bladder scan as needed CHANTELL CPAP DVT Px: SQ heparin Code status: FULL CODE Labs Checked DC likely today ROS-No Headache, No Visual Changes, No Nausea, No Vomiting, No Fever, No Chills, No Neck Pain or Stiffness, No Chest Pain, No Palpitations, No SOB, No BOGGS, No Cough, No Sputum, No Wheezing, No Abdominal Pain, No Diarrhea, No Hematemesis, No Hemoptysis, No Unexpected Weight Loss, No Flank pain, No Melena, No Hematochezia, No Frequency, No Urgency, No Burning, No Hematuria, No Rashes, No Diaphoresis. Appetite is Normal Physical Exam Gen-AAO x 3, NAD, Afebrile Head-NCAT, EOMI, PERRLA, Anicteric Sclera, No Posterior Pharyngeal Erythema Neck-Supple, No JVD, No Thyromegaly, No Masses, No LAD, No Bruits Lungs-Clear to Auscultation Bilaterally, No Rales, No Rhonchi, No Wheezing, No Crepitus Chest-No S4, +S1, +S2, No S3, No Murmurs, No Rubs, No Gallops, No Ectopy Abdomen-Soft, Bowel Sounds Present, Non Tender, Non Distended, No Hepatomegaly, No Splenomegaly, No Palpable Masses, No Rebound, No Rigidity, No Guarding Musculoskeletal-Full Range of Motion Bilaterally, No CVAT Extremities-No Cyanosis, No Clubbing, No Edema, L hand Coban wrapped Nuero-Cranial Nerves II-XII grossly intact, Motor WNL, DTRs WNL, Strength WNL, Non Focal Psych-Normal Mood Admission and Anticipated Discharge Date Admission Date: September 27, 2020 Results & Data Results & Data ([facility]) Vital Signs (Past 12 Hours) Vital Signs Temp Pulse Resp BP Pulse Ox 10/02/20 07:35 16 10/02/20 07:14 36.4 C L 67 16 149/80 H 94 10/01/20 22:59 36.8 C 72 20 125/70 94
--- NOTE | 2020-10-02 11:13 | Pharmacy Report ---
Pharmacy Glycemic Short Note 2 - Date of Service October 02, 2020 - Glycemic Short BSG Results (Last 24 hours): 10/01/20 10/01/20 10/01/20 11:48 16:13 20:32 Glucose POC Glucose 247 H 132 H 141 H 10/02/20 10/02/20 05:39 07:40 Glucose 305 H* POC Glucose 297 H OUTPATIENT ANTIDIABETIC REGIMEN: * NovoLog insulin pump: Settings as listed from July 2020: * Basal Rate 1.7 units/hr (40.8units per day) * Correction Factor 21mg/dL/unit * Carb Ratio 1 unit per 5gm CHO consumed * HbA1c = 10.6% (07/13/20) ASSESSMENT: 10/02 * BSGs well controlled much of the day yesterday with the exception of lunchtime hyperglycemia which improved with utilization of current insulin orders * "Fasting" hyperglycemia noted this AM, however patient reports eating a sandwich and potato chips overnight without any insulin coverage * Will continue current insulin orders as they have performed quite well, thus far. * Discussed transition to insulin pump on discharge w/ patient today 10/01 * BSGs well controlled for this patient over last 24 hrs given h/o BSG variability * 104 units SQ administered over last 24 hrs while tolerating a diet * Fasting BSG at goal this AM, FBS = 100-132, with 55 units basal on board - will continue * Post-prandial BSGs mostly well controlled with current Novolog orders - will continue 09/30 * BSGs well controlled since yesterday afternoon * 128 units SQ insulin admin over last 24 hrs * Fasting BSG 126 this AM with 70 units basal on board. Will begin to titrate down basal dose however given data from prior admissions. * Patient has exhibited falling BSGs in the evenings on this and prior admissions. Will adjust Novolog CF/CR such that lower doses are given with dinner and HS. PLAN FOR INPATIENT GLYCEMIC CONTROL: * Basal insulin - no change * Lantus 55 units SC AM * Bolus insulin - no change * NovoLog per scale ACHS or Q6hrs while NPO * Goal Range: Low 110 mg/dL - High 140 mg/dL * Correction Factor: 12 mg/dL/unit w/ breakfast and lunch; 20mg/dL/unit w/ dinner and HS * Nutritional / Prandial insulin per carb ratio of 1 unit per 3 grams CHO w/ breakfast and lunch; 1 uniter per 4grams CHO w/ dinner and HS DISCHARGE RECOMMENDATIONS: * Patient was instructed to begin his insulin pump the following AM after discharge. He will have Lantus on board to carry him thru until the AM. He was advised to use Novolog vial/syringe to cover his meals and BSG elevations until pump is resumed. Patient expressed understanding and agreement with this plan.
--- NOTE | 2020-10-02 12:11 | Discharge Summary ---
Date of Service October 02, 2020 Admission HPI Per Admitting Provider This is a 65-year-old male with PMH of uncontrolled Type 1 DM, hypothyroidism, CHANTELL on CPAP, asthma, HTN, CAD, GERD, Obesity, history of NSTEMI and other medical problems listed below who was sent in from [facility] clinic due to worsening appearance of left hand cellulitis and concern for osteomyelitis of fourth and second digit. Was recently admitted in July 2020 with osteomyelitis of third digit on left hand that was subsequently amputated at the level of the MCP. Has noted swelling in left hand and fourth digit particularly for 4 days it has become more painful. Also notes open wound on fourth digit with some purulent drainage. Was seen at [facility] yesterday and then again today for left hand cellulitis. Despite being given IM Rocephin yesterday and started on Bactrim, redness and swelling seemed worse and patient was sent to ED for further evaluation of necrotic digits. Endorses chills but denies fever. States he is compliant with medication but is newly using insulin pump and is not confident with its management. Has not taken any medications today. Denies lightheadedness, headache, chest pain, shortness of breath, nausea, vomiting, abdominal pain, dysuria, diarrhea or constipation. Admission Exam Per Admitting Provider General Appearance: WD/WN, vitals as above, NAD, sitting up in bed, pleasant, conversing easily Head: normocephalic, atraumatic Eyes: normal inspection, PERRL, conjunctivae normal, anicteric sclerae ENT: external ear and nose normal, oropharynx normal Neck: normal visual inspection, trachea midline, no thyromegaly Respiratory: normal respiratory effort, lungs clear to auscultation, no wheeze, rales, rhonchi. No accessory muscle use Cardiovascular: regular rate, rhythm, no murmur, normal peripheral pulses, no BLE edema. Vessels: no JVD Chest: normal inspection of chest Abdomen/GI: normal bowel sounds, soft, nontender, no hepatosplenomegaly Extremities/Musculoskeletal: L hand with multiple healed amputations. 2nd and 4th distal digits necrotic with open wounds. L hand with erythema and edema extending up L forearm with streaking. Dorsum of L foot with small open wound. Extremities motor strength 5/5 Neurologic: PERRL, EOMI, accommodation nl, no face palsy, no dysarthria, CN's II-XI intact bilaterally and moves all extremities Psychiatric: A+Ox3, euthymic affect. Poor insight Skin: no rashes, normal color, warm/dry Principal Diagnosis (1) Acute osteomyelitis of left hand including fingers: (2) Cellulitis of left upper extremity: (3) Uncontrolled diabetes mellitus: (4) HTN (hypertension): (5) CAD (coronary artery disease): (6) Alcohol abuse: (7) Hypothyroidism: (8) BPH (benign prostatic hyperplasia): (9) CHANTELL (obstructive sleep apnea): Discharge Exam See below Discharge Data Allergies Allergy/AdvReac Type Severity Reaction Status Date / Time DEIDRE Inhibitors AdvReac Unknown Cough Verified 09/27/20 13:40 Consultations 09/27/20 14:37 ED Decision to Admit Stat 09/27/20 14:55 Consult Orthopedic Surgery Routine 09/30/20 16:12 Consult Infectious Diseases Routine Procedures Performed Operation Date: 09/29/20 07:30 Actual Procedures p Left ring finger amputation(Left) - Ok Rico MD Current Diagnoses Hypothyroidism, unspecified (09/27/20) Type 2 diabetes mellitus with hyperglycemia (09/27/20) Alcohol abuse, uncomplicated (09/27/20) Obstructive sleep apnea (adult) (pediatric) (09/27/20) Essential (primary) hypertension (09/27/20) Atherosclerotic heart disease of makah coronary artery without angina pectoris (09/27/20) Cellulitis of left upper limb (09/27/20) Other acute osteomyelitis, left hand (09/27/20) Benign prostatic hyperplasia without lower urinary tract symptoms (09/27/20) Encounter for other preprocedural examination (09/27/20) Allergies DEIDRE Inhibitors Adverse Reaction (Unknown, Verified 09/27/20 13:40) Cough Height/Weight/Isolation Height 5 ft 11 in Weight 114.5 kg Isolation Type COVID Precautions Chemistry 10/01/20 10/02/20 06:27 05:39 Sodium 137 133 L Potassium 3.7 4.2 Chloride 104 102 Carbon Dioxide 27 26 Anion Gap 6.0 5.0 BUN 14 20 H Creatinine 1.17 1.41 H Glucose 100 H 305 H* Microbiology 09/29/20 08:09 Finger,Left Gram Stain - Final 09/29/20 08:09 Finger,Left Aerobic and Anaerobic Culture - Preliminary Staphylococcus aureus Ordered Studies 09/27/20 12:14 CT hand LT wo con Stat Hospital Course (1) Acute osteomyelitis of left hand including fingers: (2) Cellulitis of left upper extremity: (3) Uncontrolled diabetes mellitus: (4) HTN (hypertension): (5) CAD (coronary artery disease): (6) Alcohol abuse: (7) Hypothyroidism: (8) BPH (benign prostatic hyperplasia): (9) CHANTELL (obstructive sleep apnea): Patient is a 65 yr old male with H/O Uncontrolled Type 1 DM, hypothyroidism, CHANTELL on CPAP, asthma, HTN, CAD, GERD, Obesity, history of NSTEMI and other medical problems listed below who was sent in from [facility] due to worsening appearance of left hand cellulitis was found to have osteomyelitis in multiple digits on left hand. Acute osteomyelitis of left hand Cellulitis of left Upper Extremity -Hand CT:There is postoperative change from amputations involving the third and fifth fingers as above. There is erosion/destructive change involving the first distal phalanx, the second distal phalanx, and the fifth middle phalanx. This could represent infection/osteomyelitis and/or changes from previous amputation. Clinical correlation will be essential. There is a large wound in the distal fourth digit with significant subcutaneous gas as well as intraosseous gas involving the fourth distal phalanx. This is consistent with osteomyelitis. Diffuse soft tissue edema is present throughout the wrist and hand, greatest in the fourth digit. This is typical for cellulitis. No organized fluid collection is clearly identified to indicate abscess. A metallic foreign body is again noted within the dorsal soft tissues at the level of the second metatarsal head. 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 difficile negative Imodium PRN Uncontrolled diabetes Admits to being noncompliant HbA1C: 10.6 in July 2020 Using insulin pump at home Glycemic consult placed for SQ mgmt, pump education Monitor BGs Hypertension Stable Continue amlodipine, Toprol, losartan CAD H/O NSTEMI Continue aspirin, plavix, statin Alcohol abuse Drinks 1 pint whiskey daily On gabapentin protocol Monitor for alcohol withdrawal Continue thiamine, folic acid No withdrawal symptoms Hypothyroidism Continue levothyroxine BPH Continue tamsulosin, finasteride. Bladder scan as needed CHANTELL CPAP DVT Px: SQ heparin Code status: FULL CODE Labs Checked DC today ROS-No Headache, No Visual Changes, No Nausea, No Vomiting, No Fever, No Chills, No Neck Pain or Stiffness, No Chest Pain, No Palpitations, No SOB, No BOGGS, No Cough, No Sputum, No Wheezing, No Abdominal Pain, No Diarrhea, No Hematemesis, No Hemoptysis, No Unexpected Weight Loss, No Flank pain, No Melena, No Hematochezia, No Frequency, No Urgency, No Burning, No Hematuria, No Rashes, No Diaphoresis. Appetite is Normal Physical Exam Gen-AAO x 3, NAD, Afebrile Head-NCAT, EOMI, PERRLA, Anicteric Sclera, No Posterior Pharyngeal Erythema Neck-Supple, No JVD, No Thyromegaly, No Masses, No LAD, No Bruits Lungs-Clear to Auscultation Bilaterally, No Rales, No Rhonchi, No Wheezing, No Crepitus Chest-No S4, +S1, +S2, No S3, No Murmurs, No Rubs, No Gallops, No Ectopy Abdomen-Soft, Bowel Sounds Present, Non Tender, Non Distended, No Hepatomegaly, No Splenomegaly, No Palpable Masses, No Rebound, No Rigidity, No Guarding Musculoskeletal-Full Range of Motion Bilaterally, No CVAT Extremities-No Cyanosis, No Clubbing, No Edema, L hand Coban wrapped Nuero-Cranial Nerves II-XII grossly intact, Motor WNL, DTRs WNL, Strength WNL, Non Focal Psych-Normal Mood Total Time Total Time Spent Total Time Spent (In Minutes): 45 mins Total Time Includes: Examination of the Patient, Discharge Planning, Medication Reconciliation and Communication With Other Providers Discharge Plan Discharge Items Patient Disposition: Home - Self-Care Reason For Visit: L HAND OSTEO, CELLULITIS Discharge Diagnosis: (1) Acute osteomyelitis of left hand including fingers: (2) Cellulitis of left upper extremity: (3) Uncontrolled diabetes mellitus: (4) HTN (hypertension): (5) CAD (coronary artery disease): (6) Alcohol abuse: (7) Hypothyroidism: (8) BPH (benign prostatic hyperplasia): (9) CHANTELL (obstructive sleep apnea): Condition on Discharge: Fair Health Concerns: Further amputations in the fulure Activity: Resume your previous activity Lifting: Gradually increase as tolerated Bathing: Keep incision dry Sexual Activity: When tolerated Exercise/Sports: Gradually increase as tolerated Driving/Machine Use: No limitations Weightbearing: Full weightbearing Non-emergency contact: Primary Care Provider and Surgeon Follow-up/Referrals: Ok Rico MD [Physician] - (follow up in 10-14 days from the day of surgery ) Farzad Hatfield DO [Primary Care Provider] - Diet: Carb Consistent or DM2 and Heart Healthy 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 SPECIAL CARE INSTRUCTIONS: * CHANGE YOUR DRESSING DAILY. IF REMAINING DRY, CAN CHANGE EVERY OTHER DAY. KEEP THE COVERED UNTIL SEEN BACK IN THE OFFICE FOR YOUR FIRST POST OPERATIVE VISIT. * Some drainage onto the dressing may occur. This is normal. * If the bandage feels excessively tight, you may loosen the elastic bandage. Then call the physician's office for further instructions. * If possible, keep your hand elevated above the level of your heart for the first 2 post operative days. You may use a sling if necessary. * You should move your fingers regularly (50-100 motions per hour) unless otherwise instructed. * YOU CAN GET YOUR WOUND WET IN 48 HOURS. DO NOT SOAK THE WOUND, NO TUB BATHS, POOLS, OR HOT TUBS. CLEAN AROUND THE WOUND WITH MILD SOAP, DO NOT SCRUB THE WOUND. PAT DRY AND REDRESS THE WOUND. SPECIAL PRECAUTIONS: * If you notice increased drainage, fever over 101 degrees F. or severe, unremitting pain, call your physician/office at . * You may have been prescribed pain medication. If you experience nausea and/or skin rash, discontinue this medication and contact our office for an alternative medication. FOLLOW UP VISIT: If appointment is not already scheduled: Please call [facility] to make a follow-up appointment with Dr Rico 10-14 days after the day of your surgery at . Pending Studies at Discharge: No Stand-Alone Forms: My [facility] [employer], Smoking Cessation Medications and DC Order Prescriptions: New acetaminophen 325 mg Tablet 650 mg PO Q4H PRN (Reason: fever or pain) Qty: 90 RF: 0 loperamide 2 mg Capsule 2 mg PO Q6H PRN (Reason: loose stool) Qty: 30 RF: 0 cephalexin 500 mg capsule 500 mg PO QID 14 Days Qty: 56 RF: 0 oxycodone 5 mg tablet 5 mg PO Q6H PRN (Reason: pain) Qty: 30 RF: 0 Continued clopidogrel [Plavix] 75 mg tablet 75 mg PO QAM RF: 0 finasteride 5 mg tablet 5 mg PO QAM RF: 0 folic acid 1 mg tablet 1 mg PO QAM RF: 0 levothyroxine 125 mcg tablet 125 mcg PO QAM RF: 0 multivitamin with minerals tablet 1 tab PO QAM RF: 0 tamsulosin [Flomax] 0.4 mg capsule 0.4 mg PO HS RF: 0 venlafaxine 75 mg capsule,extended release 24hr 75 mg PO QAM RF: 0 losartan 50 mg tablet 50 mg PO BID RF: 0 furosemide 40 mg Tablet 40 mg PO QAM RF: 0 atorvastatin 40 mg Tablet 40 mg PO QAM RF: 0 sennosides-docusate sodium [Senokot-S] 8.6-50 mg Tablet 1 tab-cap PO QAM RF: 0 omeprazole 20 mg Capsule,Delayed Release(Dr/Ec) 20 mg PO QAM RF: 0 metoprolol succinate 25 mg Tablet Extended Release 24 Hr 25 mg PO QAM RF: 0 gabapentin 300 mg Tablet 600 mg PO BID RF: 0 Lantus Solostar U-100 Insulin 100 unit/mL (3 mL) Insulin Pen 100 unit SUBCUT QAM PRN (Reason: When Insulin Pump Down) RF: 0 potassium chloride 20 mEq Tablet Extended Release 40 meq PO QAM RF: 0 amlodipine 5 mg tablet 5 mg PO DAILY RF: 0 insulin aspart U-100 100 unit/mL solution 2 unit subcut CONTINOUS RF: 0 ibuprofen 200 mg Tablet 600 mg PO Q6H PRN (Reason: Pain) RF: 0 Discontinued oxycodone 5 mg tablet 5 mg PO Q6H PRN (Reason: pain) Qty: 30 RF: 0 Discharge Orders: Discharge Order (Routine); Ordered 10/02/20 Ordered By: Gabriel Marshall Admission Data Admit Date/Time: 09/27/20 14:50 Attending Provider: Gabriel Marshall Provider: Pablo Ortega Primary Care Provider: Farzad Hatfield Other Providers: Pablo Ortega ; Ok Rico ; Behzad iRvera ; Renetta Rossi ; El Botello I. ; Garrison Carmona II ; Jolene Mccallum ; Torey Qiu
[2020-10-02] MEDS ORDERED: INSULIN HUMAN REGULAR PER UNIT 8 UNITS in SYRINGE 0 ML IV ONE (12:15)
--- NOTE | 2020-10-15 08:33 | Coding Query ---
CODING QUERY To promote full compliance with coding requirements relating to patient care, provider participation is requested in all cases of mortgage loan processing clerk uncertainty. Please assist us with the question(s) below: Coding Question(s): The ER H&P documents, "Covid testing returned positive" and the Orthopedic Consultation documents, "Hospitalist will obtain a chest x- ray given a history of recent COVID in June. The patient has had his COVID vaccine, second dose approximately 2 weeks ago". Please specify below, regarding COVID-19. ( ) COVID-19 Positive during this admission per tests result ( xx ) History only COVID-19 ( ) Other: Please Specify Physician's Response(s): Thank you Alesha Real Principal Diagnosis: "that condition established after study, to be chiefly responsible for occasioning the admission of the patient to the hospital for care." Co-Existing Principal Diagnosis: "when two or more diagnoses equally meet the criteria for principal diagnosis as determined by the circumstances of admission, diagnostic work up, and/or therapy provided, and the Alphabetic Index, Tabular List, or another coding guideline does not provide sequencing direction, any one of the diagnoses may be sequenced first." "When the physician has documented what appears to be a current diagnosis in the body of the record, but has not included the diagnosis in the final diagnostic statement, the physician should be asked whether the diagnosis should be added." (Source Coding Clinic 2 QTR90. p3-4) [place]
== END 2020-10-02 13:55 | disposition home or self-care (01) | DRG 988 ==
LOC: ED 11:01 → SUATTDRO 14:50 → 3N 14:50 → 2E 09-29 09:43

== ENCOUNTER 2021-03-13 10:55 | Inpatient (IN) ==
--- NOTE | 2021-03-13 12:36 | Emergency Department Note ---
Impression & Plan Cellulitis of great toe, left, Diabetic peripheral neuropathy associated with type 2 diabetes mellitus ED Provider Note Provider: Tay Fuentes MD DATE OF SERVICE: 03/13/2021 CHIEF COMPLAINT: Left toe infection HISTORY OF PRESENT ILLNESS: Patient is a 65-year-old gentleman history of poorly controlled diabetes, GERD, hypothyroidism, CAD, hypertension, and COPD presenting here today referred from the wound clinic due to possible infection of his left great toe. Patient has been followed closely with wound care for wounds on his hands which he states have been stable. Unfortunately the patient states he experienced significant injury to his left great toe at the end of January in [place]. Patient is walking tripped and broke his left great toe and partially tore it off. Patient states the bottom part of the toe was still attached to the top was free-floating and there is bone exposed. This was evidently reattached and has been on antibiotics almost continuously to various degrees since this is occurred. Has followed with [place] [facility] locally since injury in [place] and had pin placed over the past month or so for frx in toe. Patient relates he has most recently been on a course of Bactrim and he started Keflex a day or 2 ago. Patient denies significant fevers or chills. Patient has significant diabetic neuropathy denies she can pain in his extremities. Patient's the wound care center took some cultures today of his toes but sent him here for likely IV antibiotics given how his toes look. Patient reports his ear is orthopedic several days ago who referred him to wound care for the left great toe. No new traumas reported. Patient states his blood sugars have been running around the 200s recently. REVIEW OF SYSTEMS: A total of 10 review of systems was obtained and negative except as stated above in the HPI. PAST MEDICAL HISTORY: As noted above MEDICATIONS: Reviewed home medication list SOCIAL HISTORY: Former smoker PHYSICAL EXAM: GENERAL: alert and oriented in no acute distress on stretcher Head: normocephalic and atraumatic EYES: No injection, discharge or icterus. NECK: Trachea midline. Supple. ENT: Mucous membranes pink and moist. LUNGS: Airway patent. No retractions without tachypnea HEART: Regular rate and rhythm. No chest wall tenderness ABDOMEN: Soft and non-tender, without guarding or rebound. SKIN: Acyanotic, warm, dry EXTREMITIES: Multiple bilateral finger amputations with the remaining right index finger currently bandaged. Patient with ulceration of the lateral left dorsal toe as well as ulceration and granulation the lateral left great toe. The left great toe itself is somewhat swollen with erythema extending just past the MTP joint but no crepitus. Some firmness and skin is noted over the tip of the toe but no gross purulence is expressing at this point. NEUROLOGICAL: No aphasia. No facial droop or slurred speech. Diminished sensation in the bilateral feet to the mid iniguez. Ambulatory. Patient's laboratory studies and imaging reviewed. Differential includes Cellulitis, abscess, MRSA infection, DVT, necrotizing fasciitis, dermatitis, drug eruption, allergic reaction, as well as other pathologies. IMPRESSION/MEDICAL DECISION MAKING: Patient does not appear septic. Poorly controlled diabetic. History of resistant infections in the hands. Hands and fingers have been followed closely by wound clear and do not appear to back today. Patient's left great toe however it does appear with concerning signs for infection. Did have significant trauma and prior instrumentation. X-ray obtained today to look for any possible bony findings. Inflammatory markers basic blood work and cultures were sent today. MRSA swab sent. Discussed with pharmacy given his history of resistant infections was poorly controlled diabetes with a concern for worsening wound possibly causing loss of the toe, covered broadly with ertapenem and vancomycin. Patient's blood work without significant leukocytosis and mild anemia (stable compare to previous). Lactate minimally elevated and given a small amount of IV fluids. C-reactive protein & ESR however significantly elevated. X-ray per radiology difficult to interpret given his traumatic injury but cannot exclude osteo with this. Had a discussion with the patient and feel further care here at the hospital for IV antibiotics would be reasonable given concerns for infection in this toe and his poorly controlled diabetes. The hospitalist was contacted. DIAGNOSIS: Left great toe infection, diabetes with associated diabetic peripheral neuropathy DISPOSITION: Hospitalist will evaluate Patient was agreeable with this plan. Past Med/Surg History Medical History Altered mental status Aortic root enlargement BPH (benign prostatic hyperplasia) CAD (coronary artery disease) Cellulitis of multiple sites of left hand and fingers COPD (chronic obstructive pulmonary disease) COVID-19 Diabetic peripheral neuropathy associated with type 2 diabetes mellitus Dyslipidemia GERD (gastroesophageal reflux disease) HTN (hypertension) Hyponatremia Loss of protective sensation of skin of foot NSTEMI (non-ST elevated myocardial infarction) CHANTELL (obstructive sleep apnea) Osteomyelitis Personal history of diabetic foot ulcer Status post amputation of finger Surgical History H/O adenoidectomy History of hip replacement History of hip replacement History of tonsillectomy History of tonsillectomy and adenoidectomy Family History Other Cancer Diabetes Hypertension Social History Smoking Status: Former smoker Tobacco Type: Cigarettes Cigarettes Per Day: 30; Second Hand Exposure: No; Hx Alcohol Use: No Hx Substance Use: No Preferred Language: Malay Communication Ability: Effective Visual Impairment: Limited Hearing Ability: Hard of Hearing Breakfast And Room Attendant Required: No Beliefs That Will Affect Care: None marital status: Current Living Situation: Family current occupational status: employed 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, 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, 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 [employer] How many Children do You have: 1 How many Children do You have Comment: and child able to assist with care as needed Feels Safe at Home: Yes Diet Comment: tries to watch diabetic diet, during the past year weight has: remained stable Assistive Devices: CPAP Allergies Allergies Allergy/AdvReac Type Severity Reaction Status Date / Time DEIDRE Inhibitors AdvReac Unknown Cough Verified 03/13/21 08:50 Home Meds Home Medications Medication Instructions Recorded Confirmed clopidogrel 75 mg tablet (Plavix) 75 mg PO QAM 02/04/18 03/13/21 finasteride 5 mg tablet 5 mg PO QAM tab 02/04/18 03/13/21 folic acid 1 mg tablet 1 mg PO QAM tab 02/04/18 03/13/21 levothyroxine 125 mcg tablet 125 mcg PO QAM 02/04/18 03/13/21 multivitamin with minerals 1 tab PO QAM tab 02/04/18 03/13/21 tamsulosin 0.4 mg capsule (Flomax) 0.4 mg PO HS cap 02/04/18 03/13/21 venlafaxine 75 mg capsule,extended 75 mg PO QAM cap 02/04/18 03/13/21 release 24 hr losartan 50 mg tablet 50 mg PO BID 05/13/18 03/13/21 atorvastatin 40 mg tablet 40 mg PO QAM 04/14/20 03/13/21 furosemide 40 mg tablet 40 mg PO QAM 04/14/20 03/13/21 gabapentin 300 mg tablet 600 mg PO BID 04/14/20 03/13/21 metoprolol succinate 25 mg 25 mg PO QAM 04/14/20 03/13/21 tablet,extended release 24 hr omeprazole 20 mg capsule,delayed 20 mg PO QAM 04/14/20 03/13/21 release potassium chloride 20 mEq 40 meq PO QAM 04/14/20 03/13/21 tablet,extended release sennosides 8.6 mg-docusate sodium 1 tab-cap PO QAM 04/14/20 03/13/21 50 mg tablet (Senokot-S) amlodipine 5 mg tablet 5 mg PO DAILY 07/12/20 03/13/21 ibuprofen 200 mg tablet 600 mg PO Q6H PRN 07/12/20 03/13/21 insulin aspart U-100 100 unit/mL 2 unit SUBCUT CONTINOUS 07/12/20 03/13/21 subcutaneous solution amoxicillin 875 mg-potassium 1 tab PO BID 02/17/21 03/13/21 clavulanate 125 mg tablet (Augmentin) Previous Rx's Medication Instructions Recorded acetaminophen 325 mg tablet 650 mg PO Q4H PRN #90 tab 10/02/20 loperamide 2 mg capsule 2 mg PO Q6H PRN #30 cap 10/02/20 Results & Data (ED) Vital Signs Vital Signs - 24 hr 03/13/21 11:10 Temperature 36.8 C Temperature Source Temporal Artery Scan Pulse Rate 96 H Respiratory Rate 16 Blood Pressure 138/74 Blood Pressure Mean 95 Pulse Oximetry 100 Oxygen Delivery Method Room Air Sepsis Recent Fever Within 48 Hours No Sepsis New/Unexplained Change in Mental Status No Sepsis Action Taken by Nursing No Action Required Laboratory Data Result diagrams: 03/13/21 12:21 03/13/21 12:21 Lab Results 03/13/21 03/13/21 03/13/21 Range/Units 12:21 12:21 12:21 WBC 7.20 (4.8-10.8) K/uL RBC 4.01 L (4.7-6.1) M/uL Hgb 10.0 L (14.0-18.0) g/dL Hct 32.3 L (42-52) % MCV 80.5 (80-100) fL MCH 24.9 L (25-34) pg MCHC 31.0 L (32-36) g/dL RDW Std Deviation 57.4 H (36.4-46.3) fL RDW Coeff of Juan Manuel 19.4 H (11.5-14.5) % Plt Count 368 (130-400) K/uL MPV 9.0 (7.4-10.4) fL Immature Gran % (Auto) 0.4 % Neut % (Auto) 83.7 % Lymph % (Auto) 5.3 % Pickett % (Auto) 9.9 % Eos % (Auto) 0.0 % Baso % (Auto) 0.7 % Neut # (Auto) 6.03 (1.4-6.5) K/uL Lymph # (Auto) 0.38 L (1.2-3.4) K/uL Pickett # (Auto) 0.71 H (0.11-0.59) K/uL Eos # (Auto) 0.00 (0-0.5) K/uL Baso # (Auto) 0.05 (0-0.2) K/uL Immature Gran # (Auto) 0.03 H (0.00-0.02) K/uL ESR 107 H (0-20) mm/hr Sodium 132 L (136-145) mmol/L Potassium 3.8 (3.5-5.1) mmol/L Chloride 99 (98-107) mmol/L Carbon Dioxide 27 (21-32) mmol/L Anion Gap 6.0 (3-11) BUN 9 (7-18) mg/dl Creatinine 0.98 (0.6-1.4) mg/dl Est Cr Clr Drug Dosing 99.6 ml/min Est GFR ( Amer) 94.7 ml/min Est GFR (Non-Af Amer) 81.7 ml/min BUN/Creatinine Ratio 9.5 L (10-20) Glucose 125 H (70-99) mg/dl Lactate (0.4-2.0) mmol/L Calcium 8.8 (8.5-10.1) mg/dl C-Reactive Protein 2.71 H (0-0.29) mg/dl COVID-19 Eval Order 03/13/21 03/13/21 Range/Units 12:21 12:35 WBC (4.8-10.8) K/uL RBC (4.7-6.1) M/uL Hgb (14.0-18.0) g/dL Hct (42-52) % MCV (80-100) fL MCH (25-34) pg MCHC (32-36) g/dL RDW Std Deviation (36.4-46.3) fL RDW Coeff of Juan Manuel (11.5-14.5) % Plt Count (130-400) K/uL MPV (7.4-10.4) fL Immature Gran % (Auto) % Neut % (Auto) % Lymph % (Auto) % Pickett % (Auto) % Eos % (Auto) % Baso % (Auto) % Neut # (Auto) (1.4-6.5) K/uL Lymph # (Auto) (1.2-3.4) K/uL Pickett # (Auto) (0.11-0.59) K/uL Eos # (Auto) (0-0.5) K/uL Baso # (Auto) (0-0.2) K/uL Immature Gran # (Auto) (0.00-0.02) K/uL ESR (0-20) mm/hr Sodium (136-145) mmol/L Potassium (3.5-5.1) mmol/L Chloride (98-107) mmol/L Carbon Dioxide (21-32) mmol/L Anion Gap (3-11) BUN (7-18) mg/dl Creatinine (0.6-1.4) mg/dl Est Cr Clr Drug Dosing ml/min Est GFR ( Amer) ml/min Est GFR (Non-Af Amer) ml/min BUN/Creatinine Ratio (10-20) Glucose (70-99) mg/dl Lactate 2.4 H* (0.4-2.0) mmol/L Calcium (8.5-10.1) mg/dl C-Reactive Protein (0-0.29) mg/dl COVID-19 Eval Order Covid19 at [facility] Administered Medications Vancomycin HCl 2,250 mg/ (Sodium Chloride) 545 mls @ 200 mls/hr IV NOW ONE Stop: 03/13/21 15:24 Last Admin: 03/13/21 13:27 Dose: 200 mls/hr Documented by: [id number] Sodium Chloride (Nss) 500 mls @ 999 mls/hr IV .Q31M ONE Stop: 03/13/21 13:48 Last Admin: 03/13/21 13:27 Dose: 999 mls/hr Documented by: [id number] Discontinued Medications Ertapenem (Invanz) 10 mls @ 2 mls/min IV NOW STA Stop: 03/13/21 12:45 Last Admin: 03/13/21 13:28 Dose: 2 mls/min Documented by: [id number] Imaging Data Radiologist's Impression: Foot X-Ray 03/13/21 12:12 XR foot LT min 3V routine INDICATION: [place] ^L great toe infection. TECHNIQUE: 3 views of the left foot were obtained. Comparison: None available at the time of this dictation. FINDINGS: A surgical aldo is seen spanning the first digit proximal and distal phalanx. There is fragmentation of the distal phalanx. There is mild osteopenia of these fragments. The alignment is anatomic. The joint spaces are well preserved. No soft tissue abnormality is identified. IMPRESSION: Fragmentation of the distal phalanx, standby a surgical aldo. Mild osteopenia of these fragments may be due to healing changes and/or devascularization, however osteomyelitis cannot be excluded. Recommend correlation with prior imaging avail able, if clinical suspicion remains, MRI of the foot is a more sensitive modality for osteomyelitis. ACT 112: Negative or not required by law. Electronically signed by: Shaggy Hatch M.D. 03/13/2021 1:17 PM Discharge Plan Visit Data Chief Complaint: Infection Stated Complaint: TOE INFECTION ON LEFT SIDE ED Provider: Tay Fuentes Discharge Problem: Cellulitis of great toe, left, Diabetic peripheral neuropathy associated with type 2 diabetes mellitus Patient Disposition: Being Evaluated by Hospitalist Forms Stand Alone Forms: My [facility] kajeet Prescriptions Prescriptions: No Action clopidogrel [Plavix] 75 mg tablet 75 mg PO QAM RF: 0 finasteride 5 mg tablet 5 mg PO QAM RF: 0 folic acid 1 mg tablet 1 mg PO QAM RF: 0 levothyroxine 125 mcg tablet 125 mcg PO QAM RF: 0 multivitamin with minerals tablet 1 tab PO QAM RF: 0 tamsulosin [Flomax] 0.4 mg capsule 0.4 mg PO HS RF: 0 venlafaxine 75 mg capsule,extended release 24hr 75 mg PO QAM RF: 0 amoxicillin-pot clavulanate [Augmentin] 875-125 mg tablet 1 tab PO BID RF: 0 losartan 50 mg tablet 50 mg PO BID RF: 0 furosemide 40 mg Tablet 40 mg PO QAM RF: 0 atorvastatin 40 mg Tablet 40 mg PO QAM RF: 0 sennosides-docusate sodium [Senokot-S] 8.6-50 mg Tablet 1 tab-cap PO QAM RF: 0 omeprazole 20 mg Capsule,Delayed Release(Dr/Ec) 20 mg PO QAM RF: 0 metoprolol succinate 25 mg Tablet Extended Release 24 Hr 25 mg PO QAM RF: 0 gabapentin 300 mg Tablet 600 mg PO BID RF: 0 potassium chloride 20 mEq Tablet Extended Release 40 meq PO QAM RF: 0 amlodipine 5 mg tablet 5 mg PO DAILY RF: 0 insulin aspart U-100 100 unit/mL solution 2 unit subcut CONTINOUS RF: 0 ibuprofen 200 mg Tablet 600 mg PO Q6H PRN (Reason: Pain) RF: 0 acetaminophen 325 mg Tablet 650 mg PO Q4H PRN (Reason: fever or pain) Qty: 90 RF: 0 loperamide 2 mg Capsule 2 mg PO Q6H PRN (Reason: loose stool) Qty: 30 RF: 0 Referrals Referrals: Farzad Hatfield DO [Primary Care Provider] -
[2021-03-13] MEDS ORDERED: VANCOMYCIN CONSULT ACTIVE PRN ×2 (12:41→16:03)
[2021-03-13] MEDS ORDERED: ERTAPENEM SODIUM 10 ML IV STA (12:41)
[2021-03-13] MEDS ORDERED: VANCOMYCIN HCL 2,250 MG in SODIUM CHLORIDE 0.9% 500 ML IV ONE (12:41)
[2021-03-13 12:46] LABS: Basophils # (auto) 0.05 K/uL (0-0.2); Basophils % (auto) 0.7 %; Hematocrit (blood only) 32.3 % (42-52); Immature Granulocytes # (auto) 0.03 K/uL (0.00-0.02); Immature Granulocytes % (auto) 0.4 %; Lymphocytes # (auto) 0.38 K/uL (1.2-3.4); Lymphocytes % (auto) 5.3 %; Mean Corpuscular Hemoglobin 24.9 pg (25-34); Mean Corpuscular Volume 80.5 fL (80-100); Monocytes # (auto) 0.71 K/uL (0.11-0.59); Monocytes % (auto) 9.9 %; Neutrophils # (auto) 6.03 K/uL (1.4-6.5); Neutrophils % (auto) 83.7 %; Platelet Count 368 K/uL (130-400); RDW Coefficient of Variation 19.4 % (11.5-14.5); RDW Standard Deviation 57.4 fL (36.4-46.3); Red Blood Count 4.01 M/uL (4.7-6.1)
[2021-03-13 13:05] LABS: BUN Creatinine Ratio 9.5 (10-20); C Reactive Protein 2.71 mg/dl (0-0.29); Calcium 8.8 mg/dl (8.5-10.1); Creatinine Clr Calc Pharmacy 99.6 ml/min; Est GFR (African American) 94.7 ml/min; Est GFR (Non-African American) 81.7 ml/min; Potassium 3.8 mmol/L (3.5-5.1)
[2021-03-13] MEDS ORDERED: SODIUM CHLORIDE 0.9% 500 ML IV ONE (13:18)
--- NOTE | 2021-03-13 13:18 | XRay Report ---
XR foot LT min 3V routine INDICATION: MN ^L great toe infection. TECHNIQUE: 3 views of the left foot were obtained. Comparison: None available at the time of this dictation. FINDINGS: A surgical aldo is seen spanning the first digit proximal and distal phalanx. There is fragmentation o f the distal phalanx. There is mild osteopenia of these fragments. The alignment is anatomic. The mala nt spaces are well preserved. No soft tissue abnormality is identified. IMPRESSION: Fragmentation of the distal phalanx, standby a surgical aldo. Mild osteopenia of these fragments may b e due to healing changes and/or devascularization, however osteomyelitis cannot be excluded. Recommen d correlation with prior imaging available, if clinical suspicion remains, MRI of the foot is a more sensitive modality for osteomyelitis. ACT 112: Negative or not required by law. Electronically signed by: Shaggy Hatch M.D. 03/13/2021 1:17 PM
[2021-03-13] MEDS ORDERED: CONSULT PHARMACY STA (13:46)
--- NOTE | 2021-03-13 14:27 | History & Physical Report ---
Date of Service March 13, 2021 Assessment & Plan (1) Cellulitis of great toe, left: (2) Diabetic ulcer of left foot: Plan: This is a 65-year-old male who has significant past medical history of insulin- dependent T2DM, CAD, chronic HFpEF, HTN, HLD, CHANTELL on CPAP, ascending aortic dilatation, asthma, GERD, BPH, alcohol dependence, seizure disorder, MGUS, history of multiple amputations to bilateral fingers secondary to trauma and poor wound healing who presents to ED secondary to worsening wounds of left foot and specifically to left great toe. Known trauma to L great toe 02/03/21 in [place] Eval and surgical repair by [facility] on 02/24/21 Non compliant with boot/restrictions Recently has been on multiple antibiotics, most recently augmentin Follows wound care, refer to wound care note for entirety of patient wounds of b/l fingers and L toe Wound care noted worsening to L great toe, redness and warmth concerning for infection in setting of neuropathy and poorly controlled diabetes admit to PCU wound and blood cultures obtain wound care MRI ordered to eval for OM or abscess continue IV vancomycin and ertapenem, previous cultures reviewed with pharmacy of fingers which grew multiorganism including MSSA, bacteroids fragili, Enterococcus facialis, Morganella Morgananii, & Klebsiella oxytoca ESBL consult orthopedics U neuropathy precautions elevate LLE and NWB to LLE until eval by ortho NPO after midnight in event procedure required (3) Uncontrolled diabetes mellitus: Plan: uncontrolled T2DM with neuropathy, diabetic ulcers last A1c 10/04/2020 9.2 On insulin pump, will hold Placed on Lantus/NovoLog protocol Consult glycemic pharmacy, appreciate their management (4) CAD (coronary artery disease): Plan: Medical management NSTEMI in 2014 in setting of DKA Cardiac cath 08/10/2015 demonstrated 50 to 60% mid RCA lesion with distal R PLB lesion thought to be the culprit and distal lesion not amenable to florecita scularization as well as a 30% mid LAD lesion Follows with [facility] cardiology Continue ASA, Plavix, statin, metoprolol, losartan Denies chest pain and shortness of breath (5) Chronic heart failure with preserved ejection fraction (HFpEF): Plan: last echo 02/07/2021 EF 55 to 59%, grade 1 diastolic dysfunction Daily weights, strict I's and O's Continue metoprolol, losartan Hold Lasix and potassium chloride for now Monitor daily reassess and resume as able (6) HTN (hypertension): Plan: Blood pressure elevated in ED, 152/88 On amlodipine, losartan, metoprolol and Lasix Given concern for infection and patient appears euvolemic will hold Lasix and potassium chloride for now Reevaluate on daily basis and resume as able (7) CHANTELL (obstructive sleep apnea): Plan: CPAP at bedtime (8) Hypothyroidism: Plan: continue levothyroxine (9) Dyslipidemia: Plan: continue statin (10) Alcohol abuse: Plan: Drinks 8 ounces of bourbon nightly Admits to requiring hospitalization in the past and not experiencing withdrawal symptoms TREY S scale, as needed IV lorazepam Daily oral thiamine and folic acid (11) DVT prophylaxis: Plan: SQ Lovenox bid, given BMI Dispo: PCU FULL CODE PCP: Liu Pt was seen and examined in collaboration with Dr. Rodríguez, please see addendum History of Present Illness Chief Complaint: Worsening L great toe wound and referred by wound clinic. Primary Care Provider: Farzad Hatfield DO This is a 65-year-old male who has significant past medical history of insulin- dependent T2DM, CAD, chronic HFpEF, HTN, HLD, CHANTELL on CPAP, ascending aortic dilatation, asthma, GERD, BPH, alcohol dependence, seizure disorder, MGUS, history of multiple amputations to bilateral fingers secondary to trauma and poor wound healing who presents to ED secondary to worsening wounds of left foot and specifically to left great toe. He was seen and evaluated by wound clinic today due to a new ulceration and wound to left great toe. Of significance patient initially injured the toe when he was in [place] visiting his mother on 02/03. He describes it as a degloving injury where they had to, "sew the toe back on." When he returned to [place] he was seen and evaluated by [facility] and on 02/24/2021 he underwent surgical fixation on the left great toe. Patient was to be wearing a walking boot but unfortunately was wearing his normal hunting boots and his left great toe wound became macerated. It was felt that his left great toe was edematous, erythematous and warm and felt likely patient required IV antibiotics therefore he was sent to ED. He states he overall feels, "great." He denies any pain, numbness or tingling secondary to neuropathy. He denies fever, chills, sweats, lightheadedness, dizziness, chest pain, shortness of breath, cough, URI symptoms, nausea, vomiting, abdominal pain, change in bowel or urinary habits. His appetite has been normal. He was prescribed oral Augmentin as outpatient without improvement. He he admits to being on several different antibiotics. In ED patient remained hemodynamically stable and did not meet sepsis criteria. He did have significant elevation to ESR and CRP at 107 and 2.71 respectively. His lactic acid was mildly elevated at 2.4. Left foot x-ray revealed fragmentation of the distal phalanx, standby a surgical aldo. Mild osteopenia fragments were noted which may be due to healing changes and/or devascularization. Osteomyelitis was not excluded. Given previous wound cultures ED physician spoke with pharmacy who recommended IV vancomycin and ertapenem. Allergies Allergy/AdvReac Type Severity Reaction Status Date / Time DEIDRE Inhibitors AdvReac Unknown Cough Verified 03/21/21 08:20 Home Medications Medication Instructions Recorded Confirmed Type clopidogrel 75 mg tablet (Plavix) 75 mg PO QAM 02/04/18 03/13/21 History finasteride 5 mg tablet 5 mg PO QAM tab 02/04/18 03/13/21 History folic acid 1 mg tablet 1 mg PO QAM tab 02/04/18 03/13/21 History levothyroxine 125 mcg tablet 125 mcg PO QAM 02/04/18 03/13/21 History multivitamin with minerals 1 tab PO QAM tab 02/04/18 03/13/21 History tamsulosin 0.4 mg capsule (Flomax) 0.4 mg PO HS cap 02/04/18 03/13/21 History losartan 50 mg tablet 50 mg PO BID 05/13/18 03/13/21 History atorvastatin 40 mg tablet 40 mg PO QAM 04/14/20 03/13/21 History furosemide 40 mg tablet 40 mg PO QAM 04/14/20 03/13/21 History metoprolol succinate 25 mg 25 mg PO QAM 04/14/20 03/13/21 History tablet,extended release 24 hr omeprazole 20 mg capsule,delayed 20 mg PO QAM 04/14/20 03/13/21 History release potassium chloride 20 mEq 40 meq PO QAM 04/14/20 03/13/21 History tablet,extended release sennosides 8.6 mg-docusate sodium 1 tab-cap PO QAM 04/14/20 03/13/21 History 50 mg tablet (Senokot-S) amlodipine 5 mg tablet 5 mg PO DAILY 07/12/20 03/13/21 History insulin aspart U-100 100 unit/mL 2 unit SUBCUT CONTINOUS 07/12/20 03/13/21 History subcutaneous solution acetaminophen 325 mg tablet 650 mg PO Q4H PRN #90 tab 10/02/20 03/13/21 Rx loperamide 2 mg capsule 2 mg PO Q6H PRN #30 cap 10/02/20 03/13/21 Rx aspirin 81 mg tablet,delayed 81 mg PO DAILY 03/13/21 03/21/21 History release gabapentin 300 mg capsule 300 mg PO BID 03/13/21 03/21/21 History venlafaxine 150 mg 150 mg PO DAILY 03/13/21 03/21/21 History capsule,extended release 24 hr ciprofloxacin HCl 500 mg tablet 750 mg PO Q12H 38 Days #114 tab 03/17/21 03/21/21 Rx (Cipro) vancomycin 1.5 gram intravenous 1.5 g IV Q12H 38 Days #76 ea 03/17/21 03/21/21 Rx solution Past Med/Surg History Medical History Altered mental status Aortic root enlargement BPH (benign prostatic hyperplasia) CAD (coronary artery disease) Cellulitis of multiple sites of left hand and fingers Chronic heart failure with preserved ejection fraction (HFpEF) COPD (chronic obstructive pulmonary disease) COVID-19 Diabetic peripheral neuropathy associated with type 2 diabetes mellitus Dyslipidemia GERD (gastroesophageal reflux disease) HTN (hypertension) Hyponatremia Loss of protective sensation of skin of foot NSTEMI (non-ST elevated myocardial infarction) CHANTELL (obstructive sleep apnea) Osteomyelitis Personal history of diabetic foot ulcer Status post amputation of finger Surgical History H/O adenoidectomy History of hip replacement History of hip replacement History of tonsillectomy History of tonsillectomy and adenoidectomy Family History Other Cancer Diabetes Hypertension Social History Smoking Status: Former smoker Tobacco Type: Cigarettes Cigarettes Per Day: 30; Second Hand Exposure: No; Hx Alcohol Use: Yes Alcohol type: hard liquor Alcohol Intake Frequency Comment: 8 oz hard liquor daily per pt Hx Substance Use: No Preferred Language: Turkish Communication Ability: Effective Visual Impairment: Limited Hearing Ability: Hard of Hearing Home Fire Alarm Installer Required: No Beliefs That Will Affect Care: None marital status: Current Living Situation: Spouse and Family current occupational status: employed 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, 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, 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 [employer] How many Children do You have: 3 How many Children do You have Comment: and child able to assist with care as needed Feels Safe at Home: Yes Diet Comment: tries to watch diabetic diet, during the past year weight has: remained stable Assistive Devices: CPAP and Glasses Review of Systems Review of Systems: All systems reviewed & are unremarkable except as noted in HPI & below Physical Exam Physical Exam: Constitutional: WD/WN, male, vitals as above, NAD, sitting up in bed, pleasant, conversing easily Head: Normocephalic, Atraumatic Eyes: PERRL, conjunctivae normal, anicteric sclerae ENMT: external ear and nose normal, oropharynx normal Neck: trachea midline, no thyromegaly normal visual inspection Respiratory: normal respiratory effort, lungs clear to auscultation, no wheeze, rales, rhonchi. Normal insp/exp effort, no accessory muscle use Cardiovascular: RRR, no murmur, no edema, mild venous stasis change vessels: no JVD or carotid bruit Chest: normal inspection of chest Abdomen: normal bowel sounds, soft, nontender, no hepatosplenomegaly Musculoskeletal: no cyanosis or clubbing, extremities motor strength 5/5 Skin: Amputation to left fingers 3 and 4, right 3 through 5, edematous, erythematous left great to, with lateral ulceration to the distal phalanx, along with ulcerations with purulent drainage between digits, bilateral pedal pulses are +2 and equal, cap refill less than 2 , warm and dry normal turgor Neurologic: PERRL, EOMI, accommodation nl, no face palsy, no dysarthria CN's II-XI intact bilaterally and moves all extremities Psychiatric: A+Ox3, euthymic affect Lymphatic: no cervical or axillary lymphadenopathy : deferred Results & Data Results & Data ([facility]) Vital Signs (Past 12 Hours) Vital Signs Temp Pulse Resp BP Pulse Ox 03/13/21 11:10 36.8 C 96 H 16 138/74 100 Diagnostic Findings Foot X-Ray 03/13/21 12:12 XR foot LT min 3V routine INDICATION: MN ^L great toe infection. TECHNIQUE: 3 views of the left foot were obtained. Comparison: None available at the time of this dictation. FINDINGS: A surgical aldo is seen spanning the first digit proximal and distal phalanx. There is fragmentation of the distal phalanx. There is mild osteopenia of these fragments. The alignment is anatomic. The joint spaces are well preserved. No soft tissue abnormality is identified. IMPRESSION: Fragmentation of the distal phalanx, standby a surgical aldo. Mild osteopenia of these fragments may be due to healing changes and/or devascularization, however osteomyelitis cannot be excluded. Recommend correlation with prior imaging av ailable, if clinical suspicion remains, MRI of the foot is a more sensitive modality for osteomyelitis. ACT 112: Negative or not required by law. Electronically signed by: Shaggy Hatch M.D. 03/13/2021 1:17 PM Medications Administered Medication List Vancomycin HCl 2,250 mg/ (Sodium Chloride) 545 mls @ 200 mls/hr IV NOW ONE Stop: 03/13/21 15:24 Last Admin: 03/13/21 13:27 Dose: 200 mls/hr Documented by: [id number] Discontinued Medications Ertapenem (Invanz) 10 mls @ 2 mls/min IV NOW STA Stop: 03/13/21 12:45 Last Admin: 03/13/21 13:28 Dose: 2 mls/min Documented by: [id number] Sodium Chloride (Nss) 500 mls @ 999 mls/hr IV .Q31M ONE Stop: 03/13/21 13:48 Last Admin: 03/13/21 13:27 Dose: 999 mls/hr Documented by: [id number] ECG Rate (beats per minute): 72 Rhythm: normal sinus COVID-19 Results Results COVID-19 Adm Lab Results: RBC 3.84 M/uL (4.7-6.1) L 03/16/21 WBC 4.93 K/uL (4.8-10.8) 03/16/21 Hgb 9.5 g/dL (14.0-18.0) L 03/16/21 Hct 31.0 % (42-52) L 03/16/21 Plt Count 341 K/uL (130-400) 03/16/21 Neutrophils (%) (Auto) 66.0 % 03/14/21 Lymphocytes (%) (Auto) 16.7 % 03/14/21 Monocytes # (Auto) 0.81 K/uL (0.11-0.59) H 03/14/21 Eosinophils # (Auto) 0.13 K/uL (0-0.5) 03/14/21 Immature Granulocyte % (Auto) 0.2 % 03/14/21 Neutrophils # (Auto) 3.79 K/uL (1.4-6.5) 03/14/21 Lymphocytes # (Auto) 0.96 K/uL (1.2-3.4) L 03/14/21 Monocytes # (Auto) 0.81 K/uL (0.11-0.59) H 03/14/21 Eosinophils # (Auto) 0.13 K/uL (0-0.5) 03/14/21 Basophils # (Auto) 0.04 K/uL (0-0.2) 03/14/21 Immature Granulocyte # (Auto) 0.01 K/uL (0.00-0.02) 03/14/21 Na 133 mmol/L (136-145) L 03/16/21 K 4.3 mmol/L (3.5-5.1) 03/16/21 Cl 102 mmol/L (98-107) 03/16/21 CO2 27 mmol/L (21-32) 03/16/21 Anion Gap 4.0 (3-11) 03/16/21 BUN 14 mg/dl (7-18) 03/16/21 Creatinine 0.94 mg/dl (0.6-1.4) 03/16/21 BUN/Creatinine Ratio 15.3 (10-20) 03/16/21 Glucose Level 147 mg/dl (70-99) H 03/16/21 Ca 9.0 mg/dl (8.5-10.1) 03/16/21 CRP 2.71 mg/dl (0-0.29) H 03/13/21 COVID-19 PCR NEGATIVE (Negative) 03/13/21 Code Status & VTE Plan Code Status Full Code VTE Prophylaxis Plan VTE Prophylaxis will be ordered: Yes Supervising Physician Co-Signing Physician Notes Patient was seen and examined. Agree with Dian CAMACHO exam, assessment, and plan. 65-year-old male who has significant past medical history of insulin- dependent T2DM, CAD, chronic HFpEF, HTN, HLD, CHANTELL on CPAP, ascending aortic dilatation, asthma, GERD, BPH, alcohol dependence, seizure disorder, MGUS, history of multiple amputations to bilateral fingers secondary to trauma and poor wound healing who presents to ED secondary to worsening wounds of left foot mostly in left great toe. He was seen by wound clinic today, then sent to the ER due to a new ulceration and wound to left great toe. Lab in the ER showed eelvated ESR and CRP at 107 and 2.71 respectively and lactic acid was mildly elevated at 2.4. Left foot x-ray revealed fragmentation of the distal phalanx. Pt was starting on IV vancomycin and ertapenem in the ER, will continue. Blood cx and wound cx collected. Will consider to get an MRI. Will consult ortho. continue monitor closely. MD Marcos
[2021-03-13] MEDS ORDERED: GLUCOSE 10 TABS/TUBE PO PRN (16:03)
[2021-03-13] MEDS ORDERED: ONDANSETRON INJ 2 MG/ML 2 ML VIAL IV PRN (16:03)
[2021-03-13] MEDS ORDERED: SODIUM CHLORIDE 0.9% 1000ML 1,000 ML IV SCH (16:03)
[2021-03-13] MEDS ORDERED: FOLIC ACID 1 MG TAB PO SCH (16:03)
[2021-03-13] MEDS ORDERED: DEXTROSE 50% 50 ML SYRINGE IV PRN (16:03)
[2021-03-13] MEDS ORDERED: LORazepam 1 MG/2 ML VIAL IV PRN (16:03)
[2021-03-13] MEDS ORDERED: MAGNESIUM HYDROXIDE SUSP 30 ML UDC PO PRN (16:03)
[2021-03-13] MEDS ORDERED: GLUCOSE 40% GEL 15 GM TUBE PO PRN (16:03)
[2021-03-13] MEDS ORDERED: PHARMACY GLYCEMIC MGMT CONSULT PRN (16:03)
[2021-03-13] MEDS ORDERED: GLUCAGON FOR INJ 1 MG VIAL SQ PRN (16:03)
[2021-03-13] MEDS ORDERED: ALUMINUM/MAGNESIUM SUSP 30 ML UDC PO PRN (16:03)
[2021-03-13] MEDS ORDERED: POLYETHYLENE (MIRALAX) 17 GM PACK PO PRN (16:03)
[2021-03-13] MEDS ORDERED: ACETAMINOPHEN 325 MG TAB PO PRN (16:03)
--- NOTE | 2021-03-13 16:54 | Pharmacy Report ---
Pharmacy Vanc AUC Short Note - Date of Service March 13, 2021 - Assessment & Plan Assessment 65 year old M receiving IV vancomycin for treatment of skin and soft tissue infection. Pt presents with worsening wounds of left foot and great toe in setting of trauma. Followed by wound care. Blood culture pending. Day # 1 of antimicrobial therapy Plan Vancomycin * AUC/LEWIS is the preferred PK/PD target for vancomycin * AUC guided dosing is effective and associated with decreased risk of nephrotoxicity compared to traditional trough targets * Trough level of 17.5 mcg/mL is predicted to achieve target AUC/LEWIS of 400-600 mg/L.hr and may be associated with a 13% risk of nephrotoxicity * Vanc 2250mg IV X 1 (LD) followed by 1250mg IV every 12 hours * Will obtain a trough level around steady state. Pharmacy will continue to follow and will adjust dose/frequency as necessary. Thank you.
[2021-03-13] MEDS ORDERED: FLUARIX QUADRIVALENT 0.5 ML SYR IM ONE (16:57)
[2021-03-13] MEDS ORDERED: INSULIN GLARGINE SOLOSTAR 100 UNITS/ML 3 ML PEN SC SCH (17:00)
[2021-03-13] MEDS: INSULIN ASPART 100 UNITS/ML 3 ML PEN SC SCH ×2 (17:35→20:26)
[2021-03-13] MEDS: THIAMINE HCL 100 MG TAB PO SCH (17:36)
--- NOTE | 2021-03-13 19:37 | Orthopedic Consultation ---
Date of Consultation March 13, 2021 Assessment & Plan (1) Cellulitis of great toe, left: He previously underwent I&D and percutaneous pinning of a left great toe crush injury with distal phalanx fracture by Dr. Hardin about 2.5 weeks ago. X- rays today show some lucency around the wire in the distal phalanx; this could be consistent with just motion at the fracture site or possibly osteomyelitis. He certainly has some swelling and erythema in the great toe, but no obvious drainage. The x-rays, in combination with his markedly elevated inflammatory markers, certainly raise concern for osteomyelitis. I would therefore recommend MRI of his left foot to evaluate this further. (2) Open wound, hand: He also has a relatively acute longitudinal laceration along the radial aspect of the left index finger, and a more chronic transverse laceration at the radial base of the index finger. The acute laceration appears likely infected, as it has not healed in 2 weeks and has some purulent drainage within the wound. However, he still has good motion in the finger. Again, with his markedly elevated inflammatory markers, there is certainly concern for more serious deep infection. I would recommend starting with left hand x-rays, followed by an MRI of the left hand to evaluate this further. History of Present Illness Reason for Consultation: Left great toe and left index finger wounds Attending Physician: Manny Rodríguez MD History of Present Illness Mr. Hatfield is a 65-year-old male known to our practice for previous hand and foot issues. He is a chronically very poorly controlled diabetic; most recent hemoglobin A1c was 10.6 in July 2020. Patient states that his blood glucose levels recently have been "better", but despite numerous strenuous warnings about the consequences of not controlling his blood glucose levels, they still routinely run in the 200s. He was most recently seen in our practice for a left great toe injury. He states that he sustained a crush injury to the left great toe when he was in [place], and underwent surgical treatment with Dr. Hardin on February 24. Previous operative report was reviewed; he underwent the debridement of his crush injury and percutaneous pinning of a distal phalanx fracture. He has also previously undergone left middle finger amputation in July 2020 by me, and left ring finger amputation by Dr. Rico in September 2020, both for diabetic finger infections. He denies feeling any pain in his left great toe currently; he reports that he really cannot feel anything in his feet, but he has had redness and swelling in that toe recently. In his left index finger, he says that he cut the radial aspect of the finger 2 weeks ago on a cutting wheel and sustained a longitudinal laceration along the level of the middle phalanx. He has had drainage from the wound. He also has a more chronic transverse wound across the radial aspect of the MCP joint; he says this is from using the index finger for and manipulating objects since this is his only remaining digit other than his thumb on his left hand. Allergies Allergy/AdvReac Type Severity Reaction Status Date / Time DEIDRE Inhibitors AdvReac Unknown Cough Verified 03/13/21 08:50 Home Medications Medication Instructions Recorded Confirmed Type clopidogrel 75 mg tablet (Plavix) 75 mg PO QAM 02/04/18 03/13/21 History finasteride 5 mg tablet 5 mg PO QAM tab 02/04/18 03/13/21 History folic acid 1 mg tablet 1 mg PO QAM tab 02/04/18 03/13/21 History levothyroxine 125 mcg tablet 125 mcg PO QAM 02/04/18 03/13/21 History multivitamin with minerals 1 tab PO QAM tab 02/04/18 03/13/21 History tamsulosin 0.4 mg capsule (Flomax) 0.4 mg PO HS cap 02/04/18 03/13/21 History losartan 50 mg tablet 50 mg PO BID 05/13/18 03/13/21 History atorvastatin 40 mg tablet 40 mg PO QAM 04/14/20 03/13/21 History furosemide 40 mg tablet 40 mg PO QAM 04/14/20 03/13/21 History metoprolol succinate 25 mg 25 mg PO QAM 04/14/20 03/13/21 History tablet,extended release 24 hr omeprazole 20 mg capsule,delayed 20 mg PO QAM 04/14/20 03/13/21 History release potassium chloride 20 mEq 40 meq PO QAM 04/14/20 03/13/21 History tablet,extended release sennosides 8.6 mg-docusate sodium 1 tab-cap PO QAM 04/14/20 03/13/21 History 50 mg tablet (Senokot-S) amlodipine 5 mg tablet 5 mg PO DAILY 07/12/20 03/13/21 History ibuprofen 200 mg tablet 600 mg PO Q6H PRN 07/12/20 03/13/21 History insulin aspart U-100 100 unit/mL 2 unit SUBCUT CONTINOUS 07/12/20 03/13/21 History subcutaneous solution acetaminophen 325 mg tablet 650 mg PO Q4H PRN #90 tab 10/02/20 03/13/21 Rx loperamide 2 mg capsule 2 mg PO Q6H PRN #30 cap 10/02/20 03/13/21 Rx amoxicillin 875 mg-potassium 1 tab PO BID 02/17/21 03/13/21 History clavulanate 125 mg tablet (Augmentin) aspirin 81 mg tablet,delayed 81 mg PO DAILY 03/13/21 03/13/21 History release gabapentin 300 mg capsule 300 mg PO BID 03/13/21 03/13/21 History venlafaxine 150 mg 150 mg PO DAILY 03/13/21 03/13/21 History capsule,extended release 24 hr Patient History Medical History (Updated 03/13/21 @ 15:58 by Dian Jacobo PA-C) Altered mental status Aortic root enlargement BPH (benign prostatic hyperplasia) CAD (coronary artery disease) Cellulitis of multiple sites of left hand and fingers Chronic heart failure with preserved ejection fraction (HFpEF) COPD (chronic obstructive pulmonary disease) COVID-19 Diabetic peripheral neuropathy associated with type 2 diabetes mellitus Dyslipidemia GERD (gastroesophageal reflux disease) HTN (hypertension) Hyponatremia Loss of protective sensation of skin of foot NSTEMI (non-ST elevated myocardial infarction) CHANTELL (obstructive sleep apnea) Osteomyelitis Personal history of diabetic foot ulcer Status post amputation of finger Surgical History H/O adenoidectomy History of hip replacement History of hip replacement History of tonsillectomy History of tonsillectomy and adenoidectomy Family History Other Cancer Diabetes Hypertension Social History (Updated 03/13/21 @ 14:22 by Dian Jacobo PA-C) Smoking Status: Former smoker Tobacco Type: Cigarettes Cigarettes Per Day: 30; Second Hand Exposure: No; Do You Dip or Chew Tobacco: No; Tobacco Cessation Education Requested by Patient: No Hx Alcohol Use: Yes Alcohol type: hard liquor Alcohol Intake Frequency Comment: 8 oz hard liquor daily per pt Hx Substance Use: No Preferred Language: Tamazight Communication Ability: Effective Visual Impairment: Limited Hearing Ability: Hard of Hearing Curriculum Counselor Required: No Beliefs That Will Affect Care: None marital status: Current Living Situation: Spouse and Family current occupational status: employed 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 There is also some superficial abrasions/ulcerations on the medial and lateral aspects of the great toe. There is rather diffuse swelling and erythema around the toe, but no active or expressible drainage. Examination of the left index finger reveals a longitudinal laceration along the radial mid-lateral line extending from the PIP out to the DIP joint. There appears to be some very mild but purulent drainage in the base of the wound. No expressible drainage. Intact finger flexion and extension without obvious infectious tenosynovitis. There is a more chronic appearing transverse wound at the radial base of the index finger at the MCP joint crease with some eschar in the base of the wound. Results & Data ([facility]) Vital Signs (Past 12 Hours) Vital Signs Temp Pulse Pulse Resp BP BP Pulse Ox 03/13/21 16:34 37.0 C 90 20 155/96 H 97 03/13/21 16:03 37.0 C 76 20 155/96 H 97 03/13/21 15:00 81 22 152/88 H 95 03/13/21 14:00 69 24 158/88 H 96 03/13/21 13:00 68 25 H 95 03/13/21 12:42 69 26 H 161/92 H 95 03/13/21 11:10 36.8 C 96 H 16 138/74 100 Laboratory Results ESR 107 CRP 2.71 HgbA1c 10.6 (07/13/20) Diagnostic Findings Left foot x-rays were reviewed. He has a K-wire fixating a great toe distal phalanx fracture. There is osteolysis immediately surrounding the wire in the distal phalanx, and intra-articular fragmentation of the phalangeal base. This may indicate motion across the fracture site, or possibly osteomyelitis. No obvious erosion around the wire in the proximal phalanx. No obvious callus formation or union across the fracture site. No hardware failure.
[2021-03-13] MEDS: GABAPENTIN 300 MG CAP PO SCH (20:13)
[2021-03-13] MEDS: TAMSULOSIN HCL 0.4 MG CAP PO SCH (20:13)
[2021-03-13] MEDS: ENOXAPARIN INJ 40 MG/0.4 ML SYR SQ SCH (20:14)
[2021-03-13] MEDS: LOSARTAN POTASSIUM 50 MG TAB PO SCH (20:14)
[2021-03-13] MEDS: VANCOMYCIN HCL 1,250 MG in SODIUM CHLORIDE 0.9% 250 ML IV SCH (20:14)
[2021-03-14] MEDS ORDERED: GADOBUTROL 65ML VIAL IV ONE (00:19)
[2021-03-14] MEDS: LEVOTHYROXINE SODIUM 125 MCG TABLET PO SCH (06:08)
--- NOTE | 2021-03-14 07:10 | XRay Report ---
XR hand LT min 3V routine INDICATION: MN ^Y ^Left index finger infected wound. TECHNIQUE: 3 views of the left hand were obtained. Comparison: Comparison is made to hand 3 views 09/28/2020 FINDINGS: Patient is status post amputation of the third and fourth digits and partial amputation of the remain ing digits. No evidence of acute fracture. There are radiodensities in the dorsal aspect of the hand and wrist which are likely postoperative. No focal osteopenia is seen. IMPRESSION: Status post multiple amputations with no radiographic evidence of osteomyelitis. ACT 112: Negative or not required by law. Electronically signed by: Shaggy Hatch M.D. 03/14/2021 7:09 AM
[2021-03-14 07:36] LABS: Basophils # (auto) 0.04 K/uL (0-0.2); Basophils % (auto) 0.7 %; Eosinophils # (auto) 0.13 K/uL (0-0.5); Eosinophils % (auto) 2.3 %; Hematocrit (blood only) 31.6 % (42-52); Hemoglobin 9.8 g/dL (14.0-18.0); Immature Granulocytes # (auto) 0.01 K/uL (0.00-0.02); Immature Granulocytes % (auto) 0.2 %; Lymphocytes # (auto) 0.96 K/uL (1.2-3.4); Lymphocytes % (auto) 16.7 %; Mean Corpuscular Hemoglobin 24.9 pg (25-34); Mean Corpuscular Volume 80.2 fL (80-100); Mean Platelet Volume 9.5 fL (7.4-10.4); Monocytes # (auto) 0.81 K/uL (0.11-0.59); Monocytes % (auto) 14.1 %; Neutrophils # (auto) 3.79 K/uL (1.4-6.5); Platelet Count 366 K/uL (130-400); RDW Coefficient of Variation 19.3 % (11.5-14.5); RDW Standard Deviation 57.1 fL (36.4-46.3); Red Blood Count 3.94 M/uL (4.7-6.1); White Blood Count 5.74 K/uL (4.8-10.8)
--- NOTE | 2021-03-14 07:39 | Magnetic Resonance Report ---
MR foot LT wo/w con HISTORY: L great toe wound, K-wire in place, eval osteomyelitis TECHNIQUE: Multiplanar multisequence MRI of the left forefoot was performed both before and after the intravenous administration of 11.3 cc of Gadavist contrast. COMPARISON STUDY: Left foot radiograph 03/13/2021. FINDINGS: Internal fixation of the fracture within the distal phalanx of the left first toe. There is nondiagnostic evaluation of the first toe due to to the metallic artifact from the indwelling metall ic pin and motion artifact. There appears to be fragmentation of the distal phalanx which is better a ppreciated on the same day radiograph. Mild soft tissue edema within the forefoot and first toe. The remaining osseous structures of the forefoot is shown no evidence for osteomyelitis. The Lisfranc mala nt appears intact. No definite loculated fluid collections to suggest an abscess. The flexor and exte nsor tendons are intact. There is mild marrow edema within the distal phalanx of the fourth toe witho ut definite abnormal T1 signal. There may be mild cortical erosion at the distal tuft of the fourth t oe which raises the possibility of an osteomyelitis or acro-osteolysis. IMPRESSION: 1. Internal fixation of the fracture within the distal phalanx of the left first toe. There is nondia gnostic evaluation of the first toe due to to the metallic artifact from the indwelling metallic pin and motion artifact. 2. There may be mild cortical erosion at the distal tuft of the fourth toe which raises the possibili ty of an osteomyelitis or acro-osteolysis. ACT 112: Negative or not required by law. Electronically signed by: Mike Morfin M.D. 03/14/2021 7:37 AM
[2021-03-14 08:25] LABS: Calcium 8.6 mg/dl (8.5-10.1); Creatinine Clr Calc Pharmacy 103.4 ml/min; Est GFR (African American) 99.6 ml/min; Est GFR (Non-African American) 85.9 ml/min; Potassium 3.3 mmol/L (3.5-5.1)
[2021-03-14 08:54] LABS: Estimated Average Glucose 220 mg/dl; Hemoglobin A1C 9.3 % (4.5-5.6)
--- NOTE | 2021-03-14 09:05 | Magnetic Resonance Report ---
MR hand LT wo/w con HISTORY: 65 years-old Male L index infected wound, eval osteomyelitis/abscess patient presents with reported chronic wound of the left hand. Clinical concern for osteomyelitis. Reported infection of th e second finger. COMPARISON: Radiographs of the left head of same day, CT left hand 09/27/2020, MRI left hand 07/12/2020 TECHNIQUE: Multiplanar multisequence MRI of the left hand was obtained both with and without the use of 11.3 mL Gadavist FINDINGS: Study is degraded by motion artifact. Susceptibility artifact secondary to metallic density focus juan c velma to the second metatarsal head also limits the study. Postoperative changes of prior third and fou rth finger amputation at the level of the metacarpal phalangeal joints. The fifth distal phalanx is a bsent. The first and second distal phalanges are partially absent with osseous erosions redemonstrate d. Osseous erosions of the fifth middle phalanx also again noted. Erosions within the second distal p halanx appear to have progressed when compared to the radiographs from 09/28/[address] study fro m 09/27/2020. Mild diffuse muscular atrophy with diffuse subcutaneous and intramuscular edema. No flui d collection to suggest abscess. Multifocal osteoarthritis is predominantly mild. Marrow edema of the lunate is redemonstrated with possible AVN changes. IMPRESSION: 1. Motion degraded exam. 2. Prior amputation of the third and fourth fingers. 3. Osseous erosions of the first and second distal phalanges and fifth middle phalangeal head with ab sent fifth distal phalanx redemonstrated. 4. Osseous erosions involving the second distal phalanx have mildly worsened from the the comparison 09/28/[address] scan from 09/27/2020 suggestive of progressive osteomyelitis. 5. No abscess. ACT 112: Negative or not required by law. The above report was generated using voice recognition software. It may contain grammatical, syntax o r spelling errors. Electronically signed by: Neo Arana M.D. 03/14/2021 9:04 AM
[2021-03-14] MEDS: INSULIN ASPART 100 UNITS/ML 3 ML PEN SC SCH ×4 (09:10→20:32)
[2021-03-14] MEDS: ATORVASTATIN 40 MG TAB PO SCH (09:11)
[2021-03-14] MEDS: CLOPIDOGREL BISULFATE 75 MG TAB PO SCH (09:11)
[2021-03-14] MEDS: amLODIPine BESYLATE 5 MG TAB PO SCH (09:11)
[2021-03-14] MEDS: THIAMINE HCL 100 MG TAB PO SCH (09:11)
[2021-03-14] MEDS: FINASTERIDE 5 MG TAB PO SCH (09:11)
[2021-03-14] MEDS: PANTOprazole 40 MG TAB PO SCH (09:12)
[2021-03-14] MEDS: ASPIRIN 81 MG ECTAB PO SCH (09:12)
[2021-03-14] MEDS: DOCUSATE SODIUM/SENNA 50/8.6MG TAB PO SCH (09:12)
[2021-03-14] MEDS: FOLIC ACID 1 MG TAB PO SCH (09:12)
[2021-03-14] MEDS: VENLAFAXINE HCL XR 150 MG CAPXR PO SCH (09:12)
[2021-03-14] MEDS: LOSARTAN POTASSIUM 50 MG TAB PO SCH ×2 (09:12→20:31)
[2021-03-14] MEDS: GABAPENTIN 300 MG CAP PO SCH ×2 (09:12→20:31)
[2021-03-14] MEDS: ENOXAPARIN INJ 40 MG/0.4 ML SYR SQ SCH ×2 (09:12→20:32)
[2021-03-14] MEDS: METOPROLOL SUCC 25MG EXT REL TAB PO SCH (09:12)
--- NOTE | 2021-03-14 09:55 | Pharmacy Report ---
Pharmacy Glycemic Short Note 2 - Date of Service March 14, 2021 - Glycemic Short BSG Results (Last 24 hours): 03/13/21 03/13/21 03/13/21 12:21 15:53 20:22 Glucose 125 H POC Glucose 137 H 99 03/14/21 03/14/21 03/14/21 06:58 07:29 07:31 Glucose 44 L* POC Glucose 50 L* 275 H 03/14/21 03/14/21 07:32 08:48 Glucose POC Glucose 124 H 147 H OUTPATIENT ANTIDIABETIC REGIMEN: * NovoLog insulin via pump * Basal rate = 1.7 units/hr (40.8 units/day) * CF = 21 * CR = 5 * A1c = 9.3% on 03/14/21 ASSESSMENT: * 65yo T1DM male known to pharmacy from previous admissions/glycemic consults * Insulin pump removed/stopped last evening on admission and changed to SQ basal bolus insulin regimen per doses on previous admission that worked well. * Unfortunately pt with LOW BSG this morning. May be d/t NPO status vs some overlap with insulin on board from pump with Lantus SQ * Will reduce basal insulin dosing for this evening and continue to titrate based on BSG trends. * Tight glycemic control crucial for wound healing PLAN FOR INPATIENT GLYCEMIC CONTROL: * Hold outpatient insulin pump * Basal insulin * Lantus 50 units SQ HS * Bolus insulin * NovoLog per scale ACHS or Q6hrs while NPO * Goal Range: Low 110 mg/dL - High 140 mg/dL * Correction Factor: 12 mg/dL/unit with breakfast & lunch; 20 mg/dl/unit with dinner and at HS * Nutritional / Prandial insulin per carb ratio of 1 unit per 3 grams CHO consumed with breakfast & lunch; 4 mg/dl/unit with dinner and at HS
[2021-03-14] MEDS: VANCOMYCIN HCL 1,250 MG in SODIUM CHLORIDE 0.9% 250 ML IV SCH ×2 (11:21→20:33)
[2021-03-14] MEDS ORDERED: POTASSIUM CHLORIDE CRTAB 20 MEQ TABCR PO STA (12:28)
[2021-03-14] MEDS: ERTAPENEM SODIUM 1,000 MG in SODIUM CHLORIDE 0.9% 50 ML IV SCH (12:59)
--- NOTE | 2021-03-14 16:27 | Orthopedic Progress Note ---
Date of Service March 14, 2021 Assessment & Plan (1) Cellulitis of great toe, left: Plan: He previously underwent I&D and percutaneous pinning of a left great toe crush injury with distal phalanx fracture by Dr. Hardin about 2.5 weeks ago. MRI was performed but is minimally diagnostic secondary to the implanted hardware. We will have Dr. Hardin review the x-rays and MRI for further evaluation. (2) Open wound, hand: Plan: The open wound on his right index finger appears to be a little better today. No purulence that I can appreciate although it is taking quite some time to heal. Patient states that he has been going to the [place] [place] wound [facility] clinic for his feet and as well as for his hands. We will have Dr. Hardin review his hand MRI and plain films. MRI showing slow progression of osteomyelitis of the second distal phalanx. Question for any further need of surgical intervention. Admission and Anticipated Discharge Date Admission Date: March 13, 2021 Subjective Patient sitting at the bedside reading his paper. No complaints at this time. Physical Exam Physical Exam: Bandages removed on both the left and right index fingers. Left index finger has what appears to be a closed ulceration over the distal tip that I cannot express any fluid out of. He feels that he is really not draining much of anything if at all. No erythema around the area itself no purulence noted. The right finger laceration on the index finger is noted. Xeroform gauze was removed from this wound and there is no purulence that I can appreciate in the bed of the wound. He does have some healing that is going on albeit slowly. No foul odor. No purulence that I can appreciate is noted. No drainage. Palpation of the area is not painful and I cannot express any drain age. He is some multiple wounds on his left foot notably in between the great toe and the second toe. There is some Xeroform gauze that been placed in between there. No purulence or overt draining. Previous surgery noted on the great toe. Maybe some mild erythema but no purulence and no drainage noted from that area. Results & Data ([facility]) Vital Signs (Past 12 Hours) Vital Signs Temp Pulse Pulse Resp BP BP Pulse Ox 03/14/21 15:45 72 03/14/21 15:19 36.9 C 71 17 154/88 H 95 03/14/21 11:51 36.8 C 66 17 150/88 H 94 03/14/21 07:58 37.0 C 71 16 148/80 H 94 Diagnostic Findings Laboratory Results WBC 5.74 K/uL (4.8-10.8) 03/14/21 06:58 RBC 3.94 M/uL (4.7-6.1) L 03/14/21 06:58 Hgb 9.8 g/dL (14.0-18.0) L 03/14/21 06:58 Hct 31.6 % (42-52) L 03/14/21 06:58 MCV 80.2 fL (80-100) 03/14/21 06:58 MCH 24.9 pg (25-34) L 03/14/21 06:58 MCHC 31.0 g/dL (32-36) L 03/14/21 06:58 RDW Std Deviation 57.1 fL (36.4-46.3) H 03/14/21 06:58 RDW Coeff of Juan Manuel 19.3 % (11.5-14.5) H 03/14/21 06:58 Plt Count 366 K/uL (130-400) 03/14/21 06:58 MPV 9.5 fL (7.4-10.4) 03/14/21 06:58 Immature Gran % (Auto) 0.2 % 03/14/21 06:58 Neut % (Auto) 66.0 % 03/14/21 06:58 Lymph % (Auto) 16.7 % 03/14/21 06:58 [place] % (Auto) 14.1 % 03/14/21 06:58 Eos % (Auto) 2.3 % 03/14/21 06:58 Baso % (Auto) 0.7 % 03/14/21 06:58 Neut # (Auto) 3.79 K/uL (1.4-6.5) 03/14/21 06:58 Lymph # (Auto) 0.96 K/uL (1.2-3.4) L 03/14/21 06:58 [place] # (Auto) 0.81 K/uL (0.11-0.59) H 03/14/21 06:58 Eos # (Auto) 0.13 K/uL (0-0.5) 03/14/21 06:58 Baso # (Auto) 0.04 K/uL (0-0.2) 03/14/21 06:58 Immature Gran # (Auto) 0.01 K/uL (0.00-0.02) 03/14/21 06:58 ESR 107 mm/hr (0-20) H 03/13/21 12:21 Sodium 135 mmol/L (136-145) L 03/14/21 06:58 Potassium 3.3 mmol/L (3.5-5.1) L 03/14/21 06:58 Chloride 103 mmol/L (98-107) 03/14/21 06:58 Carbon Dioxide 28 mmol/L (21-32) 03/14/21 06:58 Anion Gap 4.0 (3-11) 03/14/21 06:58 BUN 9 mg/dl (7-18) 03/14/21 06:58 Creatinine 0.94 mg/dl (0.6-1.4) 03/14/21 06:58 Est Cr Clr Drug Dosing 103.4 ml/min 03/14/21 06:58 Est GFR ( Amer) 99.6 ml/min 03/14/21 06:58 Est GFR (Non-Af Amer) 85.9 ml/min 03/14/21 06:58 BUN/Creatinine Ratio 9.0 (10-20) L 03/14/21 06:58 Glucose 44 mg/dl (70-99) L* 03/14/21 06:58 POC Glucose 121 mg/dl (70-99) H 03/14/21 11:10 Estimat Average Glucose 220 mg/dl 03/14/21 06:58 Hemoglobin A1c 9.3 % (4.5-5.6) H 03/14/21 06:58 Lactate 1.9 mmol/L (0.4-2.0) 03/13/21 14:42 Calcium 8.6 mg/dl (8.5-10.1) 03/14/21 06:58 C-Reactive Protein 2.71 mg/dl (0-0.29) H 03/13/21 12:21 Nasal Screen MRSA (PCR) Negative (Negative) 03/13/21 12:40 COVID-19 Eval Order Covid19 at [facility] 03/13/21 12:35 SARS-CoV-2 (PCR) NEGATIVE (Negative) 03/13/21 12:35 Impressions Foot X-Ray 03/13/21 12:12 XR foot LT min 3V routine INDICATION: MN ^L great toe infection. TECHNIQUE: 3 views of the left foot were obtained. Comparison: None available at the time of this dictation. FINDINGS: A surgical aldo is seen spanning the first digit proximal and distal phalanx. Th ere is fragmentation of the distal phalanx. There is mild osteopenia of these fragments. The alignment is anatomic. The joint spaces are well preserved. No soft tissue abnormality is identified. IMPRESSION: Fragmentation of the distal phalanx, standby a surgical aldo. Mild osteopenia of these fragments may be due to healing changes and/or devascularization, however osteomyelitis cannot be excluded. Recommend correlation with prior imaging available, if clinical suspicion remains, MRI of the foot is a more sensitive modality for osteomyelitis. ACT 112: Negative or not required by law. Electronically signed by: Shaggy Hatch M.D. 03/13/2021 1:17 PM Foot MRI 03/13/21 20:01 MR foot LT wo/w con HISTORY: L great toe wound, K-wire in place, eval osteomyelitis TECHNIQUE: Multiplanar multisequence MRI of the left forefoot was performed both before and after the intravenous administration of 11.3 cc of Gadavist contrast. COMPARISON STUDY: Left foot radiograph 03/13/2021. FINDINGS: Internal fixation of the fracture within the distal phalanx of the left first toe. There is nondiagnostic evaluation of the first toe due to to the metallic artifact from the indwelling metallic pin and motion artifact. There appears to be fragmentation of the distal phalanx which is better appreciated on the same day radiograph. Mild soft tissue edema within the forefoot and first toe. The remaining osseous structures of the forefoot is shown no evidence for osteomyelitis. The Lisfranc joint appears intact. No definite loculated fluid collections to suggest an abscess. The flexor and extensor tendons are intact. There is mild marrow edema within the distal phalanx of the fourth toe without definite abnormal T1 signal. There may be mild cortical erosion at the distal tuft of the fourth toe which raises the possibility of an osteomyelitis or acro- osteolysis. IMPRESSION: 1. Internal fixation of the fracture within the distal phalanx of the left first toe. There is nondiagnostic evaluation of the first toe due to to the metallic artifact from the indwelling metallic pin and motion artifact. 2. There may be mild cortical erosion at the distal tuft of the fourth toe which raises the possibility of an osteomyelitis or acro-osteolysis. ACT 112: Negative or not required by law. Electronically signed by: Mike Morfin M.D. 03/14/2021 7:37 AM Hand MRI 03/13/21 20:01 MR hand LT wo/w con HISTORY: 65 years-old Male L index infected wound, eval osteomyelitis/abscess patient presents with reported chronic wound of the left hand. Clinical concern for osteomyelitis. Reported infection of the second finger. COMPARISON: Radiographs of the left head of same day, CT left hand 09/27/2020, MRI left hand 07/12/2020 TECHNIQUE: Multiplanar multisequence MRI of the left hand was obtained both with and without the use of 11.3 mL Gadavist FINDINGS: Study is degraded by motion artifact. Susceptibility artifact secondary to metallic density focus dorsal to the second metatarsal head also limits the study. Postoperative changes of prior third and fourth finger amputation at the level of the metacarpal phalangeal joints. The fifth distal phalanx is absent. The first and second distal phalanges are partially absent with osseous erosions redemonstrated. Osseous erosions of the fifth middle phalanx also again noted. Erosions within the second distal phalanx appear to have progressed when compared to the radiographs from 09/28/[address] study from 09/27/2020. Mild diffuse muscular atrophy with diffuse subcutaneous and intramuscular edema. No fluid collection to suggest abscess. Multifocal osteoarthritis is predominantly mild. Marrow edema of the lunate is redemonstrated with possible AVN changes. IMPRESSION: 1. Motion degraded exam. 2. Prior amputation of the third and fourth fingers. 3. Osseous erosions of the first and second distal phalanges and fifth middle phalangeal head with absent fifth distal phalanx redemonstrated. 4. Osseous erosions involving the second distal phalanx have mildly worsened from the the comparison 09/28/[address] scan from 09/27/2020 palma ggestive of progressive osteomyelitis. 5. No abscess. ACT 112: Negative or not required by law. The above report was generated using voice recognition software. It may contain grammatical, syntax or spelling errors. Electronically signed by: Neo Arana M.D. 03/14/2021 9:04 AM Hand X-Ray 03/13/21 20:01 XR hand LT min 3V routine INDICATION: MN ^Y ^Left index finger infected wound. TECHNIQUE: 3 views of the left hand were obtained. Comparison: Comparison is made to hand 3 views 09/28/2020 FINDINGS: Patient is status post amputation of the third and fourth digits and partial amputation of the remaining digits. No evidence of acute fracture. There are radiodensities in the dorsal aspect of the hand and wrist which are likely postoperative. No focal osteopenia is seen. IMPRESSION: Status post multiple amputations with no radiographic evidence of osteomyelitis. ACT 112: Negative or not required by law. Electronically signed by: Shaggy Hatch M.D. 03/14/2021 7:09 AM
--- NOTE | 2021-03-14 17:32 | Electrocardiogram Report ---
Test Reason : Blood Pressure : / mmHG Vent. Rate : 072 BPM Atrial Rate : 072 BPM P-R Int : 190 ms QRS Dur : 090 ms QT Int : 392 ms P-R-T Axes : 039 045 029 degrees QTc Int : 429 ms Normal sinus rhythm Normal ECG When compared with ECG of 12-JUL-2020 19:34, No significant change was found Confirmed by Romero Escalona ([id number]) on 03/14/2021 5:31:29 PM Referred By: REFERRED SELF Confirmed By:Dragan Escalona
[2021-03-14] MEDS: TAMSULOSIN HCL 0.4 MG CAP PO SCH (20:31)
[2021-03-14] MEDS ORDERED: INSULIN GLARGINE SOLOSTAR 100 UNITS/ML 3 ML PEN SC SCH (21:00)
--- NOTE | 2021-03-14 23:54 | Hospitalist Progress Note ---
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 Known trauma to L great toe 02/03/21 in [place] Eval and surgical repair by [facility] on 02/24/21 Non compliant with boot/restrictions Recently has been on multiple antibiotics, most recently augmentin Follows wound care, refer to wound care note for entirety of patient wounds of b/l fingers and L toe Wound care noted worsening to L great toe, redness and warmth concerning for infection in setting of neuropathy and poorly controlled diabetes continue IV vancomycin and ertapenem, previous cultures reviewed with pharmacy of fingers which grew multiorganism including MSSA, bacteroids fragili, Enterococcus facialis, Morganella Morgananii, & Klebsiella oxytoca ESBL MRI Left foot showed Internal fixation of the fracture within the distal phalanx of the left first toe. There is nondiagnostic evaluation of the first toe due to to the metallic artifact from the indwelling metallic pin and motion artifact. There may be mild cortical erosion at the distal tuft of the fourth toe which raises the possibility of an osteomyelitis or acro-osteolysis. MRI of left hand showed osseous erosions involving the second distal phalanx have mildly worsened from the the comparison 09/28/[address] scan from 09/27/2020 suggestive of progressive osteomyelitis. Ortho on board Case discussed with ortho- no surgical intervention for now Continue IV abx for now (3) Uncontrolled diabetes mellitus: Plan: uncontrolled T2DM with neuropathy, diabetic ulcers Most recent hba1c 9.8 continue to hold On insulin pump Placed on Lantus/NovoLog protocol Consult glycemic pharmacy, appreciate their management (4) CAD (coronary artery disease): Plan: Medical management NSTEMI in 2014 in setting of DKA Cardiac cath 08/10/2015 demonstrated 50 to 60% mid RCA lesion with distal R PLB lesion thought to be the culprit and distal lesion not amenable to revascularization as well as a 30% mid LAD lesion Follows with [facility] cardiology Continue ASA, Plavix, statin, metoprolol, losartan Denies chest pain and shortness of breath (5) Chronic heart failure with preserved ejection fraction (HFpEF): Plan: last echo 02/07/2021 EF 55 to 59%, grade 1 diastolic dysfunction Daily weights, strict I's and O's Continue metoprolol, losartan Will resume fLasix and potassium chloride for now Monitor daily reassess and resume as able (6) HTN (hypertension): Plan: Blood pressure elevated in ED, 152/88 On amlodipine, losartan, metoprolol and Lasix Given concern for infection and patient appears euvolemic will hold Lasix and potassium chloride for now Reevaluate on daily basis and resume as able (7) CHANTELL (obstructive sleep apnea): Plan: CPAP at bedtime (8) Hypothyroidism: Plan: continue levothyroxine (9) Dyslipidemia: Plan: continue statin (10) Alcohol abuse: Plan: Drinks 8 ounces of bourbon nightly Admits to requiring hospitalization in the past and not experiencing withdrawal symptoms TREY S scale, as needed IV lorazepam Daily oral thiamine and folic acid (11) DVT prophylaxis: Plan: SQ Lovenox bid, given BMI Dispo: PCU FULL CODE PCP: Liu Admission and Anticipated Discharge Date Admission Date: March 13, 2021 Subjective Pt was seen and examined for follow up of toe and finger infected Lying in bed with no acute distress Pt denies any chest pain, palpitation, dizziness and SOB Review of Systems Review of Systems: All systems reviewed & are unremarkable except as noted in Subjective Physical Exam Physical Exam: General- No acute distress Head- atraumatic Eyes- PERRL, EOMI, ENT- oropharynx clear Neck- supple, no JVD Lungs- clear to auscultation Heart- regular rhythm; no murmur Abdomen- normal bowel sounds, soft, nontender Extremities- no calf tenderness, left fingers 3 and 4 amputation, right 3 through 5, edematous, erythematous left great toe, with lateral ulceration to the distal phalanx, along with ulcerations with purulent drainage between digits, bilateral pedal pulses are +2 and equal, cap refill less than 2 Neuro- alert, oriented x 3; PERRL, EOMI; no facial palsy; no dysarthria Skin- warm & dry Results & Data Results & Data ([facility]) Vital Signs (Past 12 Hours) Vital Signs Temp Pulse Pulse Resp BP BP Pulse Ox 03/14/21 23:28 36.8 C 76 21 172/96 H 96 03/14/21 23:11 70 03/14/21 20:31 37.1 C 71 18 153/85 H 93 03/14/21 15:45 72 03/14/21 15:19 36.9 C 71 17 154/88 H 95
[2021-03-15] MEDS: LEVOTHYROXINE SODIUM 125 MCG TABLET PO SCH (05:59)
[2021-03-15] MEDS: INSULIN ASPART 100 UNITS/ML 3 ML PEN SC SCH ×4 (08:16→20:45)
[2021-03-15] MEDS: FOLIC ACID 1 MG TAB PO SCH (08:17)
[2021-03-15] MEDS: VENLAFAXINE HCL XR 150 MG CAPXR PO SCH (08:17)
[2021-03-15] MEDS: CLOPIDOGREL BISULFATE 75 MG TAB PO SCH (08:18)
[2021-03-15] MEDS: FINASTERIDE 5 MG TAB PO SCH (08:18)
[2021-03-15] MEDS: ASPIRIN 81 MG ECTAB PO SCH (08:18)
[2021-03-15] MEDS: LOSARTAN POTASSIUM 50 MG TAB PO SCH ×2 (08:18→20:45)
[2021-03-15] MEDS: THIAMINE HCL 100 MG TAB PO SCH (08:18)
[2021-03-15] MEDS: amLODIPine BESYLATE 5 MG TAB PO SCH (08:18)
[2021-03-15] MEDS: GABAPENTIN 300 MG CAP PO SCH ×2 (08:18→20:45)
[2021-03-15] MEDS: PANTOprazole 40 MG TAB PO SCH (08:18)
[2021-03-15] MEDS: METOPROLOL SUCC 25MG EXT REL TAB PO SCH (08:18)
[2021-03-15] MEDS: DOCUSATE SODIUM/SENNA 50/8.6MG TAB PO SCH (08:18)
[2021-03-15] MEDS: ATORVASTATIN 40 MG TAB PO SCH (08:19)
[2021-03-15] MEDS ORDERED: VANCOMYCIN TROUGH ONE (09:30)
--- NOTE | 2021-03-15 10:05 | Orthopedic Progress Note ---
Date of Service March 15, 2021 Assessment & Plan (1) Cellulitis of great toe, left: Plan: He previously underwent I&D and percutaneous pinning of a left great toe crush injury with distal phalanx fracture by Dr. Hardin about 2.5 weeks ago. MRI was performed but is minimally diagnostic secondary to the implanted hardware. We will have Dr. Hardin review the x-rays and MRI for further evaluation. At this time will continue to monitor for any changes and check wounds (2) Open wound, hand: Plan: the wounds do seem to be better from last seen in the office at [facility] however the laceration to the index finger is new along radial aspect and base of proximal phalanx. Appear to be slowly healing Admission and Anticipated Discharge Date Admission Date: March 13, 2021 Subjective patient sitting in bed this am. He notes no complaints today and he thinks things are improving. Physical Exam Physical Exam: Left index finger has what appears to be a closed ulceration over the distal tip healing since previously seen in the office. No erythema around the area itself no purulence noted. right finger laceration on the index finger is noted. He does have some healing that is going on albeit slowly. No foul odor. No purulence . No drainage. multiple wounds on his left foot notably in between the great toe and the second toe. No purulence or overt draining. Previous surgery noted on the great toe. Results & Data ([facility]) Vital Signs (Past 12 Hours) Vital Signs Temp Pulse Pulse Resp BP BP Pulse Ox 03/15/21 06:50 36.6 C 61 18 162/90 H 96 03/15/21 03:00 36.4 C L 59 L 20 154/82 H 95 03/14/21 23:28 36.8 C 76 21 172/96 H 96 03/14/21 23:11 70
[2021-03-15] MEDS: VANCOMYCIN HCL 1,250 MG in SODIUM CHLORIDE 0.9% 250 ML IV SCH (10:11)
[2021-03-15] MEDS: ENOXAPARIN INJ 40 MG/0.4 ML SYR SQ SCH ×2 (10:12→20:49)
--- NOTE | 2021-03-15 12:05 | Pharmacy Report ---
Pharmacy Glycemic Short Note 2 - Date of Service March 15, 2021 - Glycemic Short BSG Results (Last 24 hours): 03/14/21 03/14/21 03/15/21 16:27 20:26 07:06 POC Glucose 275 H 191 H 203 H 03/15/21 11:18 POC Glucose 153 H OUTPATIENT ANTIDIABETIC REGIMEN: * NovoLog insulin via pump * Basal rate = 1.7 units/hr (40.8 units/day) * CF = 21 * CR = 5 * A1c = 9.3% on 03/14/21 ASSESSMENT: 03/15 * Pt has received 72 units of insulin over the past 24hrs * 50 units of basal with Lantus * 22 units of bolus with NovoLog * BSGs [id number] mg/dl * AM fasting elevated ; now that diet resumed, will increase basal back to 55 units SQ which worked well on previous admissions * No changes needed to CF/CR 03/14 * 65yo T1DM male known to pharmacy from previous admissions/glycemic consults * Insulin pump removed/stopped last evening on admission and changed to SQ basal bolus insulin regimen per doses on previous admission that worked well. * Unfortunately pt with LOW BSG this morning. May be d/t NPO status vs some overlap with insulin on board from pump with Lantus SQ * Will reduce basal insulin dosing for this evening and continue to titrate based on BSG trends. * Tight glycemic control crucial for wound healing PLAN FOR INPATIENT GLYCEMIC CONTROL: * Hold outpatient insulin pump * Basal insulin * Lantus 55 units SQ HS * Bolus insulin * NovoLog per scale ACHS or Q6hrs while NPO * Goal Range: Low 110 mg/dL - High 140 mg/dL * Correction Factor: 12 mg/dL/unit with breakfast & lunch; 20 mg/dl/unit with dinner and at HS * Nutritional / Prandial insulin per carb ratio of 1 unit per 3 grams CHO consumed with breakfast & lunch; 4 mg/dl/unit with dinner and at HS
--- NOTE | 2021-03-15 13:07 | Pharmacy Report ---
Pharmacy Vanc AUC Short Note - Date of Service March 15, 2021 - Assessment & Plan Assessment 65 year old M receiving Vancomycin for treatment of diabetic foot ulcer and open L hand wound. Blood and wound cultures pending. Day #3 of antimicrobial therapy. Patient was on Vancomycin 1250 mg IV q12h. A trough Vanc level was drawn today after 3 maintenance doses. Laboratory Tests 03/15/21 09:55 Vancomycin Trough 11.6 Plan Vancomycin * AUC/LEWIS is the preferred PK/PD target for vancomycin * AUC guided dosing is effective and associated with decreased risk of nephrotoxicity compared to traditional trough targets * Trough level of 11.6 mcg/mL is predicted to achieve target AUC/LEWIS of 443 mg/L.hr and may be associated with a 8% risk of nephrotoxicity * Although above AUC is within goal range, patient was recently treated with Augmentin for same infection and failed this. Also, he has hx of OM and was admitted in September 2020 for this. Therefore, would like to target a higher AUC. * Dosing increased to Vancomycin 1500 mg IV q12h. This is predicted to achieve a target AUC/LEWIS of 529 mg/L.hr with possible 12% risk of nephrotoxicity. * Trough Vanc level ordered for: 03/17/21 before dose at 10:00. Pharmacy will continue to follow and will adjust dose/frequency as necessary. Thank you.
[2021-03-15] MEDS: ERTAPENEM SODIUM 1,000 MG in SODIUM CHLORIDE 0.9% 50 ML IV SCH (14:18)
[2021-03-15] MEDS: TAMSULOSIN HCL 0.4 MG CAP PO SCH (20:45)
[2021-03-15] MEDS: VANCOMYCIN HCL 1,500 MG in SODIUM CHLORIDE 0.9% 500 ML IV SCH (20:49)
[2021-03-15] MEDS ORDERED: INSULIN GLARGINE SOLOSTAR 100 UNITS/ML 3 ML PEN SC SCH (21:00)
--- NOTE | 2021-03-15 23:24 | Hospitalist Progress Note ---
Date of Service March 15, 2021 Assessment & Plan (1) Cellulitis of great toe, left: (2) Diabetic ulcer of left foot: Plan: This is a 65-year-old male who has significant past medical history of insulin- dependent T2DM, CAD, chronic HFpEF, HTN, HLD, CHANTELL on CPAP, ascending aortic dilatation, asthma, GERD, BPH, alcohol dependence, seizure disorder, MGUS, history of multiple amputations to bilateral fingers secondary to trauma and poor wound healing who presents to ED secondary to worsening wounds of left foot and specifically to left great toe. Known trauma to L great toe 02/03/21 in [place] Eval and surgical repair by [facility] on 02/24/21 Non compliant with boot/restrictions Recently has been on multiple antibiotics, most recently augmentin Follows wound care, refer to wound care note for entirety of patient wounds of b/l fingers and L toe Wound care noted worsening to L great toe, redness and warmth concerning for infection in setting of neuropathy and poorly controlled diabetes continue IV vancomycin and ertapenem, previous cultures reviewed with pharmacy of fingers which grew multiorganism including MSSA, bacteroids fragili, Enterococcus facialis, Morganella Morgananii, & Klebsiella oxytoca ESBL MRI Left foot showed Internal fixation of the fracture within the distal phalanx of the left first toe. There is nondiagnostic evaluation of the first toe due to to the metallic artifact from the indwelling metallic pin and motion artifact. There may be mild cortical erosion at the distal tuft of the fourth toe which raises the possibility of an osteomyelitis or acro-osteolysis. MRI of left hand showed osseous erosions involving the second distal phalanx have mildly worsened from the the comparison 09/28/[address] scan from 09/27/2020 suggestive of progressive osteomyelitis. Ortho on board Case discussed with ortho- no surgical intervention for now Continue IV abx for now (3) Uncontrolled diabetes mellitus: Plan: uncontrolled T2DM with neuropathy, diabetic ulcers Most recent hba1c 9.8 continue to hold On insulin pump Placed on Lantus/NovoLog protocol Consult glycemic pharmacy, appreciate their management (4) CAD (coronary artery disease): Plan: Medical management NSTEMI in 2014 in setting of DKA Cardiac cath 08/10/2015 demonstrated 50 to 60% mid RCA lesion with distal R PLB lesion thought to be the culprit and distal lesion not amenable to revascularization as well as a 30% mid LAD lesion Follows with [facility] cardiology Continue ASA, Plavix, statin, metoprolol, losartan Denies chest pain and shortness of breath (5) Chronic heart failure with preserved ejection fraction (HFpEF): Plan: last echo 02/07/2021 EF 55 to 59%, grade 1 diastolic dysfunction Daily weights, strict I's and O's Continue metoprolol, losartan Will resume fLasix and potassium chloride for now Monitor daily reassess and resume as able (6) HTN (hypertension): Plan: Blood pressure elevated in ED, 152/88 On amlodipine, losartan, metoprolol and Lasix Given concern for infection and patient appears euvolemic will hold Lasix and potassium chloride for now Reevaluate on daily basis and resume as able (7) CHANTELL (obstructive sleep apnea): Plan: CPAP at bedtime (8) Hypothyroidism: Plan: continue levothyroxine (9) Dyslipidemia: Plan: continue statin (10) Alcohol abuse: Plan: Drinks 8 ounces of bourbon nightly Admits to requiring hospitalization in the past and not experiencing withdrawal symptoms TREY S scale, as needed IV lorazepam Daily oral thiamine and folic acid (11) DVT prophylaxis: Plan: SQ Lovenox bid, given BMI Dispo: PCU FULL CODE PCP: Liu Admission and Anticipated Discharge Date Admission Date: March 13, 2021 Subjective Pt was seen and examined for follow up of toe and finger infected Lying in bed with no acute distress Pt denies any chest pain, palpitation, dizziness and SOB Review of Systems Review of Systems: All systems reviewed & are unremarkable except as noted in Subjective Physical Exam Physical Exam: General- No acute distress Head- atraumatic Eyes- PERRL, EOMI, ENT- oropharynx clear Neck- supple, no JVD Lungs- clear to auscultation Heart- regular rhythm; no murmur Abdomen- normal bowel sounds, soft, nontender Extremities- no calf tenderness, left fingers 3 and 4 amputation, right 3 through 5, edematous, erythematous left great toe, with lateral ulceration to the distal phalanx, along with ulcerations with purulent drainage between digits, bilateral pedal pulses are +2 and equal, cap refill less than 2 Neuro- alert, oriented x 3; PERRL, EOMI; no facial palsy; no dysarthria Skin- warm & dry Results & Data Results & Data ([facility]) Vital Signs (Past 12 Hours) Vital Signs Temp Pulse Resp BP BP Pulse Ox 03/15/21 20:03 36.7 C 72 17 163/84 H 97 03/15/21 15:34 37.1 C 62 18 114/73 96
[2021-03-16] MEDS: LEVOTHYROXINE SODIUM 125 MCG TABLET PO SCH (06:06)
[2021-03-16 06:39] LABS: Hemoglobin 9.5 g/dL (14.0-18.0); Mean Corpuscular Hemoglobin 24.7 pg (25-34); Mean Corpuscular Hgb Conc 30.6 g/dL (32-36); Mean Corpuscular Volume 80.7 fL (80-100); Mean Platelet Volume 9.6 fL (7.4-10.4); Platelet Count 341 K/uL (130-400); RDW Coefficient of Variation 19.4 % (11.5-14.5); RDW Standard Deviation 56.8 fL (36.4-46.3); Red Blood Count 3.84 M/uL (4.7-6.1); White Blood Count 4.93 K/uL (4.8-10.8)
[2021-03-16 07:21] LABS: BUN Creatinine Ratio 15.3 (10-20); Creatinine Clr Calc Pharmacy 103.3 ml/min; Est GFR (African American) 99.6 ml/min; Est GFR (Non-African American) 85.9 ml/min
[2021-03-16] MEDS: INSULIN ASPART 100 UNITS/ML 3 ML PEN SC SCH ×3 (08:32→16:58)
[2021-03-16] MEDS: VENLAFAXINE HCL XR 150 MG CAPXR PO SCH (08:34)
[2021-03-16] MEDS: THIAMINE HCL 100 MG TAB PO SCH (08:34)
[2021-03-16] MEDS: DOCUSATE SODIUM/SENNA 50/8.6MG TAB PO SCH (08:35)
[2021-03-16] MEDS: CLOPIDOGREL BISULFATE 75 MG TAB PO SCH (08:36)
[2021-03-16] MEDS: METOPROLOL SUCC 25MG EXT REL TAB PO SCH (08:36)
[2021-03-16] MEDS: ASPIRIN 81 MG ECTAB PO SCH (08:36)
[2021-03-16] MEDS: PANTOprazole 40 MG TAB PO SCH (08:37)
[2021-03-16] MEDS: ATORVASTATIN 40 MG TAB PO SCH (08:37)
[2021-03-16] MEDS: FINASTERIDE 5 MG TAB PO SCH (08:37)
[2021-03-16] MEDS: FUROSEMIDE 40 MG TAB PO SCH (08:37)
[2021-03-16] MEDS: LOSARTAN POTASSIUM 50 MG TAB PO SCH ×2 (08:38→20:26)
[2021-03-16] MEDS: GABAPENTIN 300 MG CAP PO SCH ×2 (08:38→20:25)
[2021-03-16] MEDS: FOLIC ACID 1 MG TAB PO SCH (08:39)
[2021-03-16] MEDS: amLODIPine BESYLATE 5 MG TAB PO SCH (08:39)
[2021-03-16] MEDS: ENOXAPARIN INJ 40 MG/0.4 ML SYR SQ SCH ×2 (10:05→21:18)
[2021-03-16] MEDS: VANCOMYCIN HCL 1,500 MG in SODIUM CHLORIDE 0.9% 500 ML IV SCH ×2 (10:08→21:14)
--- NOTE | 2021-03-16 10:46 | Orthopedic Progress Note ---
Date of Service March 16, 2021 Assessment & Plan (1) Cellulitis of great toe, left: Plan: He previously underwent I&D and percutaneous pinning of a left great toe crush injury with distal phalanx fracture by Dr. Hardin about 2.5 weeks ago. MRI was performed but is minimally diagnostic secondary to the implanted hardware. We will have Dr. Hardin review the x-rays and MRI for further evaluation. currently on iv abx, will need picc At this time will continue to monitor for any changes and check wounds (2) Open wound, hand: Plan: the wounds do seem to be better from last seen in the office at [facility] [place] [facility] however the laceration to the index finger is new along radial aspect and base of proximal phalanx. Appear to be slowly healing Admission and Anticipated Discharge Date Admission Date: March 13, 2021 Subjective patient resting in bed. no complaints today. Physical Exam Physical Exam: No changes today. Left index finger has what appears to be a closed ulceration over the distal tip healing since previously seen in the office. No erythema around the area itself no purulence noted. right finger laceration on the index finger is noted. He does have some healin g that is going on albeit slowly. No foul odor. No purulence . No drainage. multiple wounds on his left foot notably in between the great toe and the second toe. No purulence or overt draining. Previous surgery noted on the great toe. Results & Data ([facility]) Vital Signs (Past 12 Hours) Vital Signs Temp Pulse Pulse Resp BP BP Pulse Ox 03/16/21 08:07 56 L 03/16/21 07:20 36.4 C L 59 L 18 168/93 H 100 03/16/21 04:02 36.5 C 60 16 146/87 H 03/16/21 00:00 61 03/15/21 23:45 36.7 C 62 18 146/89 H 94
[2021-03-16] MEDS: ERTAPENEM SODIUM 1,000 MG in SODIUM CHLORIDE 0.9% 50 ML IV SCH (14:50)
--- NOTE | 2021-03-16 17:32 | Hospitalist Progress Note ---
Date of Service March 16, 2021 Assessment & Plan (1) Cellulitis of great toe, left: (2) Diabetic ulcer of left foot: Plan: This is a 65-year-old male who has significant past medical history of insulin- dependent T2DM, CAD, chronic HFpEF, HTN, HLD, CHANTELL on CPAP, ascending aortic dilatation, asthma, GERD, BPH, alcohol dependence, seizure disorder, MGUS, history of multiple amputations to bilateral fingers secondary to trauma and poor wound healing who presents to ED secondary to worsening wounds of left foot and specifically to left great toe. Known trauma to L great toe 02/03/21 in [place] Eval and surgical repair by [facility] on 02/24/21 Non compliant with boot/restrictions Recently has been on multiple antibiotics, most recently augmentin Follows wound care, refer to wound care note for entirety of patient wounds of b/l fingers and L toe Wound care noted worsening to L great toe, redness and warmth concerning for infection in setting of neuropathy and poorly controlled diabetes continue IV vancomycin and ertapenem, previous cultures reviewed with pharmacy of fingers which grew multiorganism including MSSA, bacteroids fragili, Enterococcus facialis, Morganella Morgananii, & Klebsiella oxytoca ESBL MRI Left foot showed Internal fixation of the fracture within the distal phalanx of the left first toe. There is nondiagnostic evaluation of the first toe due to to the metallic artifact from the indwelling metallic pin and motion artifact. There may be mild cortical erosion at the distal tuft of the fourth toe which raises the possibility of an osteomyelitis or acro-osteolysis. MRI of left hand showed osseous erosions involving the second distal phalanx have mildly worsened from the the comparison 09/28/[address] scan from 09/27/2020 suggestive of progressive osteomyelitis. Ortho on board Case discussed with ortho- no surgical intervention for now Continue IV abx for now (3) Uncontrolled diabetes mellitus: Plan: uncontrolled T2DM with neuropathy, diabetic ulcers Most recent hba1c 9.8 continue to hold On insulin pump Placed on Lantus/NovoLog protocol Consult glycemic pharmacy, appreciate their management (4) CAD (coronary artery disease): Plan: Medical management NSTEMI in 2014 in setting of DKA Cardiac cath 08/10/2015 demonstrated 50 to 60% mid RCA lesion with distal R PLB lesion thought to be the culprit and distal lesion not amenable to revascularization as well as a 30% mid LAD lesion Follows with [facility] cardiology Continue ASA, Plavix, statin, metoprolol, losartan Denies chest pain and shortness of breath (5) Chronic heart failure with preserved ejection fraction (HFpEF): Plan: last echo 02/07/2021 EF 55 to 59%, grade 1 diastolic dysfunction Daily weights, strict I's and O's Continue metoprolol, losartan Will resume fLasix and potassium chloride for now Monitor daily reassess and resume as able (6) HTN (hypertension): Plan: Blood pressure elevated in ED, 152/88 On amlodipine, losartan, metoprolol and Lasix Given concern for infection and patient appears euvolemic will hold Lasix and potassium chloride for now Reevaluate on daily basis and resume as able (7) CHANTELL (obstructive sleep apnea): Plan: CPAP at bedtime (8) Hypothyroidism: Plan: continue levothyroxine (9) Dyslipidemia: Plan: continue statin (10) Alcohol abuse: Plan: Drinks 8 ounces of bourbon nightly Admits to requiring hospitalization in the past and not experiencing withdrawal symptoms TREY S scale, as needed IV lorazepam Daily oral thiamine and folic acid (11) DVT prophylaxis: Plan: SQ Lovenox bid, given BMI Dispo: PCU FULL CODE PCP: Liu Admission and Anticipated Discharge Date Admission Date: March 13, 2021 Subjective Pt was seen and examined for follow up of toe and finger infected Lying in bed with no acute distress Pt denies any chest pain, palpitation, dizziness and SOB Review of Systems Review of Systems: All systems reviewed & are unremarkable except as noted in Subjective Physical Exam Physical Exam: General- No acute distress Head- atraumatic Eyes- PERRL, EOMI, ENT- oropharynx clear Neck- supple, no JVD Lungs- clear to auscultation Heart- regular rhythm; no murmur Abdomen- normal bowel sounds, soft, nontender Extremities- no calf tenderness, left fingers 3 and 4 amputation, right 3 through 5, edematous, erythematous left great toe, with lateral ulceration to the distal phalanx, along with ulcerations with purulent drainage between digits, bilateral pedal pulses are +2 and equal, cap refill less than 2 Neuro- alert, oriented x 3; PERRL, EOMI; no facial palsy; no dysarthria Skin- warm & dry Results & Data Results & Data ([facility]) Vital Signs (Past 12 Hours) Vital Signs Temp Pulse Pulse Resp BP Pulse Ox 03/16/21 16:14 36.4 C L 61 17 144/89 H 94 03/16/21 11:40 36.8 C 65 14 137/73 99 03/16/21 08:07 56 L 03/16/21 07:20 36.4 C L 59 L 18 168/93 H 100
[2021-03-16] MEDS: CARBOHYDRATES FOR HYPOGLYCEMIA PO PRN ×4 (20:22→21:11)
[2021-03-16] MEDS: TAMSULOSIN HCL 0.4 MG CAP PO SCH (20:25)
[2021-03-16] MEDS ORDERED: INSULIN GLARGINE SOLOSTAR 100 UNITS/ML 3 ML PEN SC ONE (23:45)
[2021-03-17] MEDS ORDERED: INSULIN GLARGINE SOLOSTAR 100 UNITS/ML 3 ML PEN SC SCH
[2021-03-17] MEDS: LEVOTHYROXINE SODIUM 125 MCG TABLET PO SCH (06:13)
[2021-03-17] MEDS: INSULIN ASPART 100 UNITS/ML 3 ML PEN SC SCH ×4 (08:26→21:09)
[2021-03-17] MEDS: VENLAFAXINE HCL XR 150 MG CAPXR PO SCH (08:28)
[2021-03-17] MEDS: METOPROLOL SUCC 25MG EXT REL TAB PO SCH (08:28)
[2021-03-17] MEDS: THIAMINE HCL 100 MG TAB PO SCH (08:28)
[2021-03-17] MEDS: CLOPIDOGREL BISULFATE 75 MG TAB PO SCH (08:28)
[2021-03-17] MEDS: FUROSEMIDE 40 MG TAB PO SCH (08:29)
[2021-03-17] MEDS: GABAPENTIN 300 MG CAP PO SCH ×2 (08:29→21:08)
[2021-03-17] MEDS: ATORVASTATIN 40 MG TAB PO SCH (08:29)
[2021-03-17] MEDS: FOLIC ACID 1 MG TAB PO SCH (08:29)
[2021-03-17] MEDS: amLODIPine BESYLATE 5 MG TAB PO SCH (08:29)
[2021-03-17] MEDS: LOSARTAN POTASSIUM 50 MG TAB PO SCH ×2 (08:29→21:08)
[2021-03-17] MEDS: FINASTERIDE 5 MG TAB PO SCH (08:29)
[2021-03-17] MEDS: DOCUSATE SODIUM/SENNA 50/8.6MG TAB PO SCH (08:29)
[2021-03-17] MEDS: ASPIRIN 81 MG ECTAB PO SCH (08:29)
[2021-03-17] MEDS: PANTOprazole 40 MG TAB PO SCH (08:30)
[2021-03-17] MEDS ORDERED: INSULIN GLARGINE SOLOSTAR 100 UNITS/ML 3 ML PEN SC ONE (09:00)
[2021-03-17] MEDS ORDERED: VANCOMYCIN TROUGH ONE (09:30)
[2021-03-17] MEDS: ENOXAPARIN INJ 40 MG/0.4 ML SYR SQ SCH ×2 (10:25→21:08)
[2021-03-17] MEDS: VANCOMYCIN HCL 1,500 MG in SODIUM CHLORIDE 0.9% 500 ML IV SCH ×2 (10:25→21:06)
--- NOTE | 2021-03-17 10:37 | Pharmacy Report ---
Pharmacy Vanc AUC Short Note - Date of Service March 17, 2021 - Assessment & Plan Assessment 65 year old M receiving vancomycin for treatment of wound infections. Pertinent microbiologic data includes: previous cultures growing Enterococcus faecalies, Morganella (R to Unasyn) and ESBL Keb oxytoca. Day # 5 of antimicrobial therapy. Plan Vancomycin * AUC/LEWIS is the preferred PK/PD target for vancomycin * AUC guided dosing is effective and associated with decreased risk of nephrotoxicity compared to traditional trough targets * Trough level of 17.+ mcg/mL is predicted to achieve target AUC/LEWIS of 400-600 mg/L.hr and may be associated with a 13 % risk of nephrotoxicity * Continue dose of 1500 mg IV every 12 hours * Trough to be ordered based upon clinical picture Pharmacy will continue to follow and will adjust dose/frequency as necessary. Thank you.
--- NOTE | 2021-03-17 10:40 | Pharmacy Report ---
Pharmacy Glycemic Short Note 2 - Date of Service March 17, 2021 - Glycemic Short BSG Results (Last 24 hours): 03/16/21 03/16/21 03/16/21 11:10 16:08 20:18 POC Glucose 183 H 110 H 49 L* 03/16/21 03/16/21 03/16/21 20:37 20:54 21:10 POC Glucose 48 L* 63 L* 67 L* 03/16/21 03/16/21 03/17/21 21:25 23:53 07:15 POC Glucose 72 181 H 347 H* 03/17/21 07:16 POC Glucose 318 H* OUTPATIENT ANTIDIABETIC REGIMEN: * NovoLog insulin via pump * Basal rate = 1.7 units/hr (40.8 units/day) * CF = 21 * CR = 5 * A1c = 9.3% on 03/14/21 ASSESSMENT: 03/17/21 * Pt has received 91 units of insulin over the past 24hrs * 25 units of basal with Lantus * 66 units of bolus with NovoLog * BSGs 129-166-849-49 mg/dl * AM fasting elevated most likely due to only 25 units of Lantus given yesterday. Fastings are excellent so basal rate is truly around 50-55 units/day. Give 25 units BID for now. * Patient with hypoglycemia yesterday evening due to aggressive Novolog. Loosen parameters. 03/15 * Pt has received 72 units of insulin over the past 24hrs * 50 units of basal with Lantus * 22 units of bolus with NovoLog * BSGs [phone] mg/dl * AM fasting elevated ; now that diet resumed, will increase basal back to 55 units SQ which worked well on previous admissions * No changes needed to CF/CR 03/14 * 65yo T1DM male known to pharmacy from previous admissions/glycemic consults * Insulin pump removed/stopped last evening on admission and changed to SQ basal bolus insulin regimen per doses on previous admission that worked well. * Unfortunately pt with LOW BSG this morning. May be d/t NPO status vs some overlap with insulin on board from pump with Lantus SQ * Will reduce basal insulin dosing for this evening and continue to titrate based on BSG trends. * Tight glycemic control crucial for wound healing PLAN FOR INPATIENT GLYCEMIC CONTROL: * Hold outpatient insulin pump * Basal insulin * Lantus 25 units SQ BID * Bolus insulin * NovoLog per scale ACHS or Q6hrs while NPO * Goal Range: Low 110 mg/dL - High 140 mg/dL * Correction Factor: 15 mg/dL/unit with breakfast & lunch; 25 mg/dl/unit with dinner and at HS * Nutritional / Prandial insulin per carb ratio of 1 unit per 4 grams CHO consumed with breakfast & lunch; 6 mg/dl/unit with dinner and at HS
[2021-03-17] MEDS: ERTAPENEM SODIUM 1,000 MG in SODIUM CHLORIDE 0.9% 50 ML IV SCH (15:24)
--- NOTE | 2021-03-17 18:51 | Hospitalist Progress Note ---
Date of Service March 17, 2021 Assessment & Plan (1) Cellulitis of great toe, left: (2) Diabetic ulcer of left foot: Plan: This is a 65-year-old male who has significant past medical history of insulin- dependent T2DM, CAD, chronic HFpEF, HTN, HLD, CHANTELL on CPAP, ascending aortic dilatation, asthma, GERD, BPH, alcohol dependence, seizure disorder, MGUS, history of multiple amputations to bilateral fingers secondary to trauma and poor wound healing who presents to ED secondary to worsening wounds of left foot and specifically to left great toe. Known trauma to L great toe 02/03/21 in [place] Eval and surgical repair by [facility] on 02/24/21 Non compliant with boot/restrictions Recently has been on multiple antibiotics, most recently augmentin Follows wound care, refer to wound care note for entirety of patient wounds of b/l fingers and L toe Wound care noted worsening to L great toe, redness and warmth concerning for infection in setting of neuropathy and poorly controlled diabetes continue IV vancomycin and ertapenem, previous cultures reviewed with pharmacy of fingers which grew multiorganism including MSSA, bacteroids fragili, Enterococcus facialis, Morganella Morgananii, & Klebsiella oxytoca ESBL MRI Left foot showed Internal fixation of the fracture within the distal phalanx of the left first toe. There is nondiagnostic evaluation of the first toe due to to the metallic artifact from the indwelling metallic pin and motion artifact. There may be mild cortical erosion at the distal tuft of the fourth toe which raises the possibility of an osteomyelitis or acro-osteolysis. MRI of left hand showed osseous erosions involving the second distal phalanx have mildly worsened from the the comparison 09/28/[address] scan from 09/27/2020 suggestive of progressive osteomyelitis. Ortho on board Case discussed with ortho- no surgical intervention for now ID o board that recommended a total course of 6 weeks abx with Vanco Ertapenem can change to PO high dose cipro for 6 week Will need to monitor QT prolongation Check Vanco Trough on Wednesday Check CMP and CBC while on IV Vanco Outpatient follow up with ortho Consent obtained for picc line and script given to manager case (3) Uncontrolled diabetes mellitus: Plan: uncontrolled T2DM with neuropathy, diabetic ulcers Most recent hba1c 9.8 continue to hold On insulin pump Placed on Lantus/NovoLog protocol Consult glycemic pharmacy, appreciate their management (4) CAD (coronary artery disease): Plan: Medical management NSTEMI in 2014 in setting of DKA Cardiac cath 08/10/2015 demonstrated 50 to 60% mid RCA lesion with distal R PLB lesion thought to be the culprit and distal lesion not amenable to revascularization as well as a 30% mid LAD lesion Follows with [facility] cardiology Continue ASA, Plavix, statin, metoprolol, losartan Denies chest pain and shortness of breath (5) Chronic heart failure with preserved ejection fraction (HFpEF): Plan: last echo 02/07/2021 EF 55 to 59%, grade 1 diastolic dysfunction Daily weights, strict I's and O's Continue metoprolol, losartan Resume Lasix and potassium chloride for now Monitor daily reassess and resume as able (6) HTN (hypertension): Plan: Blood pressure elevated in ED, 152/88 On amlodipine, losartan, metoprolol and Lasix Given concern for infection and patient appears euvolemic will hold Lasix and potassium chloride for now Reevaluate on daily basis and resume as able (7) CHANTELL (obstructive sleep apnea): Plan: CPAP at bedtime (8) Hypothyroidism: Plan: continue levothyroxine (9) Dyslipidemia: Plan: continue statin (10) Alcohol abuse: Plan: Drinks 8 ounces of bourbon nightly Admits to requiring hospitalization in the past and not experiencing withdrawal symptoms TREY S scale, as needed IV lorazepam Daily oral thiamine and folic acid (11) DVT prophylaxis: Plan: SQ Lovenox bid, given BMI Dispo: PCU FULL CODE PCP: Liu Disposition Discharge home today Admission and Anticipated Discharge Date Admission Date: March 13, 2021 Subjective Pt was seen and examined for follow up of toe and finger infected Lying in bed with no acute distress Pt saw ID today that recommended 6 weeks course of IV abx Pt denies any chest pain, palpitation, dizziness and SOB Review of Systems Review of Systems: All systems reviewed & are unremarkable except as noted in Subjective Physical Exam Physical Exam: General- No acute distress Head- atraumatic Eyes- PERRL, EOMI, ENT- oropharynx clear Neck- supple, no JVD Lungs- clear to auscultation Heart- regular rhythm; no murmur Abdomen- normal bowel sounds, soft, nontender Extremities- no calf tenderness, left fingers 3 and 4 amputation, right 3 through 5, edematous, erythematous left great toe, with lateral ulceration to the distal phalanx, along with ulcerations with purulent drainage between digits, bilateral pedal pulses are +2 and equal, cap refill less than 2 Neuro- alert, oriented x 3; PERRL, EOMI; no facial palsy; no dysarthria Skin- warm & dry Results & Data Results & Data ([facility]) Vital Signs (Past 12 Hours) Vital Signs Temp Pulse Pulse Resp BP BP Pulse Ox 03/17/21 15:32 36.4 C L 62 20 132/82 95 03/17/21 11:37 36.4 C L 62 16 148/88 H 100 03/17/21 09:02 57 L 03/17/21 07:36 36.6 C 61 16 154/81 H 95
[2021-03-17] MEDS ORDERED: CIPROFLOXACIN 250 MG TAB PO SCH (20:00)
[2021-03-17] MEDS: TAMSULOSIN HCL 0.4 MG CAP PO SCH (21:08)
--- NOTE | 2021-03-18 13:18 | Discharge Summary ---
Date of Service March 17, 2021 Admission HPI Per Admitting Provider This is a 65-year-old male who has significant past medical history of insulin- dependent T2DM, CAD, chronic HFpEF, HTN, HLD, CHANTELL on CPAP, ascending aortic dilatation, asthma, GERD, BPH, alcohol dependence, seizure disorder, MGUS, history of multiple amputations to bilateral fingers secondary to trauma and poor wound healing who presents to ED secondary to worsening wounds of left foot and specifically to left great toe. He was seen and evaluated by wound clinic today due to a new ulceration and wound to left great toe. Of significance patient initially injured the toe when he was in [place] visiting his mother on 02/03. He describes it as a degloving injury where they had to, "sew the toe back on." When he returned to [place] he was seen and evaluated by Francisco and on 02/24/2021 he underwent surgical fixation on the left great toe. Patient was to be wearing a walking boot but unfortunately was wearing his normal hunting boots and his left great toe wound became macerated. It was felt that his left great toe was edematous, erythematous and warm and felt likely patient required IV antibiotics therefore he was sent to ED. He states he overall feels, "great." He denies any pain, numbness or tingling secondary to neuropathy. He denies fever, chills, sweats, lightheadedness, dizziness, chest pain, shortness of breath, cough, URI symptoms, nausea, vomiting, abdominal pain, change in bowel or urinary habits. His appetite has been normal. He was prescribed oral Augmentin as outpatient without improvement. He he admits to being on several different antibiotics. In ED patient remained hemodynamically stable and did not meet sepsis criteria. He did have significant elevation to ESR and CRP at 107 and 2.71 respectively. His lactic acid was mildly elevated at 2.4. Left foot x-ray revealed fragmentation of the distal phalanx, standby a surgical aldo. Mild osteopenia fragments were noted which may be due to healing changes and/or devascularization. Osteomyelitis was not excluded. Given previous wound cultures ED physician spoke with pharmacy who recommended IV vancomycin and ertapenem. Admission Exam Per Admitting Provider Constitutional: WD/WN, male, vitals as above, NAD, sitting up in bed, pleasant, conversing easily Head: Normocephalic, Atraumatic Eyes: PERRL, conjunctivae normal, anicteric sclerae ENMT: external ear and nose normal, oropharynx normal Neck: trachea midline, no thyromegaly normal visual inspection Respiratory: normal respiratory effort, lungs clear to auscultation, no wheeze, rales, rhonchi. Normal insp/exp effort, no accessory muscle use Cardiovascular: RRR, no murmur, no edema, mild venous stasis change vessels: no JVD or carotid bruit Chest: normal inspection of chest Abdomen: normal bowel sounds, soft, nontender, no hepatosplenomegaly Musculoskeletal: no cyanosis or clubbing, extremities motor strength 5/5 Skin: Amputation to left fingers 3 and 4, right 3 through 5, edematous, erythematous left great to, with lateral ulceration to the distal phalanx, along with ulcerations with purulent drainage between digits, bilateral pedal pulses are +2 and equal, cap refill less than 2 , warm and dry normal turgor Neurologic: PERRL, EOMI, accommodation nl, no face palsy, no dysarthria CN's II-XI intact bilaterally and moves all extremities Psychiatric: A+Ox3, euthymic affect Lymphatic: no cervical or axillary lymphadenopathy : deferred Principal Diagnosis (1) Cellulitis of great toe, left: (2) Diabetic ulcer of left foot: Discharge Exam General- No acute distress Head- atraumatic Eyes- PERRL, EOMI, ENT- oropharynx clear Neck- supple, no JVD Lungs- clear to auscultation Heart- regular rhythm; no murmur Abdomen- normal bowel sounds, soft, nontender Extremities- no calf tenderness, left fingers 3 and 4 amputation, right 3 through 5, edematous, erythematous left great toe, with lateral ulceration to the distal phalanx, along with ulcerations with purulent drainage between digits, bilateral pedal pulses are +2 and equal, cap refill less than 2 Neuro- alert, oriented x 3; PERRL, EOMI; no facial palsy; no dysarthria Skin- warm & dry Discharge Data Allergies Allergy/AdvReac Type Severity Reaction Status Date / Time DEIDRE Inhibitors AdvReac Unknown Cough Verified 03/13/21 08:50 Consultations 03/13/21 13:39 ED Decision to Admit Stat 03/13/21 13:46 Consult Orthopedic Surgery Routine 03/16/21 08:50 Consult Infectious Diseases Routine Ordered Studies 03/13/21 20:01 MR foot LT wo/w con Urgent MR hand LT wo/w con Urgent XR hand LT min 3V routine INDICATION: MN ^Y ^Left index finger infected wound. TECHNIQUE: 3 views of the left hand were obtained. Comparison: Comparison is made to hand 3 views 09/28/2020 FINDINGS: Patient is status post amputation of the third and fourth digits and partial amputation of the remaining digits. No evidence of acute fracture. There are radiodensities in the dorsal aspect of the hand and wrist which are likely postoperative. No focal osteopenia is seen. IMPRESSION: Status post multiple amputations with no radiographic evidence of osteomyelitis. ACT 112: Negative or not required by law. Electronically signed by: Shaggy Hatch M.D. 03/14/2021 7:09 AM Dictated: 03/14/21706Transcribed: 03/14/21706 MR hand LT wo/w con HISTORY: 65 years-old Male L index infected wound, eval osteomyelitis/abscess patient presents with reported chronic wound of the left hand. Clinical concern for osteomyelitis. Reported infection of the second finger. COMPARISON: Radiographs of the left head of same day, CT left hand 09/27/2020, MRI left hand 07/12/2020 TECHNIQUE: Multiplanar multisequence MRI of the left hand was obtained both with and without the use of 11.3 mL Gadavist FINDINGS: Study is degraded by motion artifact. Susceptibility artifact secondary to metallic density focus dorsal to the second metatarsal head also limits the study. Postoperative changes of prior third and fourth finger amputation at the level of the metacarpal phalangeal joints. The fifth distal phalanx is absent. The first and second distal phalanges are partially absent with osseous erosions redemonstrated. Osseous erosions of the fifth middle phalanx also again noted. Erosions within the second distal phalanx appear to have progressed when compared to the radiographs from 09/28/[address] study from 09/27/2020. Mild diffuse muscular atrophy with diffuse subcutaneous and intramuscular edema. No fluid collection to suggest abscess. Multifocal osteoarthritis is predominantly mild. Marrow edema of the lunate is redemonstrated with possible AVN changes. IMPRESSION: 1. Motion degraded exam. 2. Prior amputation of the third and fourth fingers. 3. Osseous erosions of the first and second distal phalanges and fifth middle phalangeal head with absent fifth distal phalanx redemonstrated. 4. Osseous erosions involving the second distal phalanx have mildly worsened from the the comparison 09/28/[address] scan from 09/27/2020 suggestive of progressive osteomyelitis. 5. No abscess. ACT 112: Negative or not required by law. The above report was generated using voice recognition software. It may contain grammatical, syntax or spelling errors. Electronically signed by: Neo Arana M.D. 03/14/2021 9:04 AM Dictated: 03/14/21851Transcribed: 03/14/21851 MR foot LT wo/w con HISTORY: L great toe wound, K-wire in place, eval osteomyelitis TECHNIQUE: Multiplanar multisequence MRI of the left forefoot was performed both before and after the intravenous administration of 11.3 cc of Gadavist contrast. COMPARISON STUDY: Left foot radiograph 03/13/2021. FINDINGS: Internal fixation of the fracture within the distal phalanx of the left first toe. There is nondiagnostic evaluation of the first toe due to to the metallic artifact from the indwelling metallic pin and motion artifact. There appears to be fragmentation of the distal phalanx which is better appreciated on the same day radiograph. Mild soft tissue edema within the forefoot and first toe. The remaining osseous structures of the forefoot is shown no evidence for osteomyelitis. The Lisfranc joint appears intact. No definite loculated fluid collections to suggest an abscess. The flexor and extensor tendons are intact. There is mild marrow edema within the distal phalanx of the fourth toe without definite abnormal T1 signal. There may be mild cortical erosion at the distal tuft of the fourth toe which raises the possibility of an osteomyelitis or acro- osteolysis. IMPRESSION: 1. Internal fixation of the fracture within the distal phalanx of the left first toe. There is nondiagnostic evaluation of the first toe due to to the metallic artifact from the indwelling metallic pin and motion artifact. 2. There may be mild cortical erosion at the distal tuft of the fourth toe which raises the possibility of an osteomyelitis or acro-osteolysis. ACT 112: Negative or not required by law. Electronically signed by: Mike Morfin M.D. 03/14/2021 7:37 AM Dictated: 03/14/21730Transcribed: 03/14/21730 XR foot LT min 3V routine INDICATION: MN ^L great toe infection. TECHNIQUE: 3 views of the left foot were obtained. Comparison: None available at the time of this dictation. FINDINGS: A surgical aldo is seen spanning the first digit proximal and distal phalanx. There is fragmentation of the distal phalanx. There is mild osteopenia of these fragments. The alignment is anatomic. The joint spaces are well preserved. No soft tissue abnormality is identified. IMPRESSION: Fragmentation of the distal phalanx, standby a surgical aldo. Mild osteopenia of these fragments may be due to healing changes and/or devascularization, however osteomyelitis cannot be excluded. Recommend correlation with prior imaging available, if clinical suspicion remains, MRI of the foot is a more sensitive modality for osteomyelitis. ACT 112: Negative or not required by law. Electronically signed by: Shaggy Hatch M.D. 03/13/2021 1:17 PM Dictated: 03/13/21 1314Transcribed: 03/13/21 1314 Diabetes Follow up Diabetes Follow-up Needed for HgbA1c >9% Hospital Course (1) Cellulitis of great toe, left: (2) Diabetic ulcer of left foot: This is a 65-year-old male who has significant past medical history of insulin- dependent T2DM, CAD, chronic HFpEF, HTN, HLD, CHANTELL on CPAP, ascending aortic dilatation, asthma, GERD, BPH, alcohol dependence, seizure disorder, MGUS, history of multiple amputations to bilateral fingers secondary to trauma and poor wound healing who presents to ED secondary to worsening wounds of left foot and specifically to left great toe. Known trauma to L great toe 02/03/21 in [place] Eval and surgical repair by [facility] on 02/24/21 Non compliant with boot/restrictions Recently has been on multiple antibiotics, most recently augmentin Follows wound care, refer to wound care note for entirety of patient wounds of b/l fingers and L toe Wound care noted worsening to L great toe, redness and warmth concerning for infection in setting of neuropathy and poorly controlled diabetes continue IV vancomycin and ertapenem, previous cultures reviewed with pharmacy of fingers which grew multiorganism including MSSA, bacteroids fragili, Enterococcus facialis, Morganella Morgananii, & Klebsiella oxytoca ESBL MRI Left foot showed Internal fixation of the fracture within the distal phalanx of the left first toe. There is nondiagnostic evaluation of the first toe due to to the metallic artifact from the indwelling metallic pin and motion artifact. There may be mild cortical erosion at the distal tuft of the fourth toe which raises the possibility of an osteomyelitis or acro-osteolysis. MRI of left hand showed osseous erosions involving the second distal phalanx have mildly worsened from the the comparison 09/28/[address] scan from 09/27/2020 suggestive of progressive osteomyelitis. Ortho on board Case discussed with ortho- no surgical intervention for now ID o board that recommended a total course of 6 weeks abx with Vanco Ertapenem can change to PO high dose cipro for 6 week Will need to monitor QT prolongation Check Vanco Trough on Wednesday Check CMP and CBC while on IV Vanco Outpatient follow up with ortho Consent obtained for picc line and script given to shoe parts caser (3) Uncontrolled diabetes mellitus: uncontrolled T2DM with neuropathy, diabetic ulcers Most recent hba1c 9.8 continue to hold On insulin pump Placed on Lantus/NovoLog protocol Consult glycemic pharmacy, appreciate their management (4) CAD (coronary artery disease): Medical management NSTEMI in 2014 in setting of DKA Cardiac cath 08/10/2015 demonstrated 50 to 60% mid RCA lesion with distal R PLB lesion thought to be the culprit and distal lesion not amenable to revascularization as well as a 30% mid LAD lesion Follows with [facility] cardiology Continue ASA, Plavix, statin, metoprolol, losartan Denies chest pain and shortness of breath (5) Chronic heart failure with preserved ejection fraction (HFpEF): last echo 02/07/2021 EF 55 to 59%, grade 1 diastolic dysfunction Daily weights, strict I's and O's Continue metoprolol, losartan Resume Lasix and potassium chloride for now Monitor daily reassess and resume as able (6) HTN (hypertension): Blood pressure elevated in ED, 152/88 On amlodipine, losartan, metoprolol and Lasix Given concern for infection and patient appears euvolemic will hold Lasix and potassium chloride for now Reevaluate on daily basis and resume as able (7) CHANTELL (obstructive sleep apnea): CPAP at bedtime (8) Hypothyroidism: continue levothyroxine (9) Dyslipidemia: continue statin (10) Alcohol abuse: Drinks 8 ounces of bourbon nightly Admits to requiring hospitalization in the past and not experiencing withdrawal symptoms TREY S scale, as needed IV lorazepam Daily oral thiamine and folic acid (11) DVT prophylaxis: SQ Lovenox bid, given BMI Dispo: PCU FULL CODE PCP: Liu Disposition Discharge home today Total Time Total Time Spent Total Time Spent (In Minutes): 40 minutes Discharge Plan Discharge Items Patient Disposition: Home - Home Health Services Reason For Visit: L GREAT TOE INFECTION, MULTIPLE WOUNDS OF HAND/TIEN Discharge Diagnosis: (1) Cellulitis of great toe, left: (2) Diabetic ulcer of left foot: Activity: Resume your previous activity Non-emergency contact: Primary Care Provider and Surgeon Call non-emergency contact if: you have any medication questions, your symptoms worsen and your temperature is above 101 Follow-up/Referrals: [facility] [Other] - 05/06/21 12:20 pm ([address] [place] [address]) Farzad Hatfield DO [Primary Care Provider] - (Date & Time 03/24/2021 11:00 AM Provider Ezra Banks MD Department [facility] ) Diet: Carb Consistent or DM2 Addtl Attending Provider Instructions: Follow up with your primary care provider 03/24/2021 11:00 AM Provider Ezra Banks MD Department [facility] Follow up with orthopedic Dr. Hardin in 2 weeks Follow up with wound care clinic Continue daily wound care Continue outpatient antibiotic infusion with vancomycin Continue cipro 750mg BID Check vanco through on 03/19, then weekly (goal 15-20) Check CBC and CMP weekly while on IV vancomycin Continue monitor your blood sugar and limited concentrated sweet intake Pending Studies at Discharge: No Stand-Alone Forms: My [employer], Smoking Cessation Medications and DC Order Prescriptions: New vancomycin 1.5 gram recon soln 1.5 g IV Q12H 38 Days Qty: 76 RF: 0 ciprofloxacin HCl [Cipro] 500 mg tablet 750 mg PO Q12H 38 Days Qty: 114 RF: 0 Continued clopidogrel [Plavix] 75 mg tablet 75 mg PO QAM RF: 0 finasteride 5 mg tablet 5 mg PO QAM RF: 0 folic acid 1 mg tablet 1 mg PO QAM RF: 0 levothyroxine 125 mcg tablet 125 mcg PO QAM RF: 0 multivitamin with minerals tablet 1 tab PO QAM RF: 0 tamsulosin [Flomax] 0.4 mg capsule 0.4 mg PO HS RF: 0 losartan 50 mg tablet 50 mg PO BID RF: 0 furosemide 40 mg Tablet 40 mg PO QAM RF: 0 atorvastatin 40 mg Tablet 40 mg PO QAM RF: 0 sennosides-docusate sodium [Senokot-S] 8.6-50 mg Tablet 1 tab-cap PO QAM RF: 0 omeprazole 20 mg Capsule,Delayed Release(Dr/Ec) 20 mg PO QAM RF: 0 metoprolol succinate 25 mg Tablet Extended Release 24 Hr 25 mg PO QAM RF: 0 potassium chloride 20 mEq Tablet Extended Release 40 meq PO QAM RF: 0 amlodipine 5 mg tablet 5 mg PO DAILY RF: 0 insulin aspart U-100 100 unit/mL solution 2 unit subcut CONTINOUS RF: 0 acetaminophen 325 mg Tablet 650 mg PO Q4H PRN (Reason: fever or pain) Qty: 90 RF: 0 loperamide 2 mg Capsule 2 mg PO Q6H PRN (Reason: loose stool) Qty: 30 RF: 0 gabapentin 300 mg capsule 300 mg PO BID RF: 0 aspirin 81 mg Tablet,Delayed Release (Dr/Ec) 81 mg PO DAILY RF: 0 venlafaxine 150 mg Capsule,Extended Release 24hr 150 mg PO DAILY RF: 0 Discontinued amoxicillin-pot clavulanate [Augmentin] 875-125 mg tablet 1 tab PO BID RF: 0 ibuprofen 200 mg Tablet 600 mg PO Q6H PRN (Reason: Pain) RF: 0 Discharge Orders: Discharge Order (Routine); Ordered 03/17/21 Ordered By: Manny Rodríguez Admission Data Admit Date/Time: 03/13/21 13:46 Attending Provider: Manny Rodríguez Admit Provider: Manny Rodríguez Primary Care Provider: Farzad Hatfield Other Providers: Manny Rodríguez ; Ok Rico ; Behzad Merino ; Renetta Rossi ; El Botello I. ; Garrison Carmona II ; Jolene Mccallum ; Torey Qiu ; Raymond Miner ; [facility] Other Interventions: Discharge Summary Assessment (RN) Last Done: 03/17/21 22:02
== END 2021-03-18 00:25 | disposition home health service (06) | DRG 603 ==
LOC: ED 10:55 → 2S 13:46
DX: J44.9 Chronic obstructive pulmonary disease, unspecified; E03.9 Hypothyroidism, unspecified; E11.621 Type 2 diabetes mellitus with foot ulcer; G40.909 Epilepsy, unspecified, not intractable, without status epilepticus; Z96.41 Presence of insulin pump (external) (internal); I11.0 Hypertensive heart disease with heart failure; M86.9 Osteomyelitis, unspecified; F10.10 Alcohol abuse, uncomplicated; G47.33 Obstructive sleep apnea (adult) (pediatric); Z87.891 Personal history of nicotine dependence; X58.XXXA Exposure to other specified factors, initial encounter; Y92.89 Other specified places as the place of occurrence of the external cause; S61.412A Laceration without foreign body of left hand, initial encounter; L97.529 Non-pressure chronic ulcer of other part of left foot with unspecified severity; Z79.82 Long term (current) use of aspirin; E11.69 Type 2 diabetes mellitus with other specified complication; E11.42 Type 2 diabetes mellitus with diabetic polyneuropathy; L03.032 Cellulitis of left toe; Z86.16 Personal history of COVID-19; X58.XXXD Exposure to other specified factors, subsequent encounter; K21.9 Gastro-esophageal reflux disease without esophagitis; N40.0 Benign prostatic hyperplasia without lower urinary tract symptoms; I50.32 Chronic diastolic (congestive) heart failure; Z79.4 Long term (current) use of insulin; I25.2 Old myocardial infarction; I25.10 Atherosclerotic heart disease of native coronary artery without angina pectoris

== ENCOUNTER 2022-02-26 05:29 | Inpatient (IN) ==
[2022-02-26] MEDS ORDERED: SODIUM CHLORIDE 0.9% 500 ML IV STA (05:36)
--- NOTE | 2022-02-26 05:40 | Emergency Department Note ---
Impression & Plan Hypoxia ADMIT ED Provider Note HPI: The patient is a 66-year-old gentleman who presents the emergency department with multiple issues. Patient presents via EMS for hypoglycemia, he was noted by his to have some increased work of breathing and some altered mentation earlier this evening when he woke up from sleep, blood glucose was reportedly in the 30s, on arrival patient was altered with BG in 40s, and he was given glucagon secondary to difficulty with IV access. Patient did become more responsive. He was also given oral glucose and on blood sugar recheck he was at 86. Patient was noted to be hypoxic in the field in the low 80s and was placed on nasal cannula oxygen via EMS with good improvement. Patient was also noted to be tachycardic by EMS, EKG was obtained that shows evidence of atrial fibrillation with RVR with a heart rate of 126. On arrival here to the ED the patient is otherwise alert, he is hemodynamically stable on 5 L nasal cannula oxygen and is in no acute distress. 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 Skin: No evidence of rash Neuro: Alert, no focal deficits Psychiatric: Cooperative speech correction consultant: - An order was placed for continuous cardiac monitoring - Patient was noted to be in irregular rhythm with tachycardic rate at 152 EKG # 1: Rate: 157 Rhythm: Atrial flutter Intervals: Within normal limits ST changes: No ST elevation Time: 0542 EKG # 2: Rate: 93 Rhythm: Normal sinus rhythm Intervals: Within normal limits ST changes: No ST elevation Time: 0751 Medical Decision Making: Patient presented to the emergency department with multiple issues including hypoglycemia, tachycardia, and hypoxia. On my initial assessment the patient is hemodynamically stable and alert, he is on 5 L nasal cannula oxygen with saturations at 97%. Shortly after arrival IV was established, lab work obtained, patient was given an amp of D50 for blood sugar of 55. Lab work shows multiple abnormalities including high-sensitivity troponin level of 79, EKG was noted to show what appeared to be atrial fibrillation with RVR on the monitor, EKG is interpreted as sinus tachycardia at 155, patient was given a bolus of IV diltiazem and patient's heart rate did respond into the 90s while blood pressure remained stable. I suspect that his arrhythmia was likely atrial fibrillation or flutter with RVR as it does appear somewhat irregular on EKG. Chest x-ray shows an apparent right-sided infiltrate, patient will be treated with IV azithromycin and IV ceftriaxone for possible community-acquired pneumonia given his hypoxia and increased work of breathing. This did stabilize with nasal cannula oxygen. On reassessment the patient states that he is fe eling improved, heart rate is now in the 90s repeat EKG confirms normal sinus rhythm. Patient's creatinine is slightly elevated above baseline at 1.46, potassium is noted to be low at 3.1 which was repleted orally. Patient was given IV fluids here in the ED for his elevated creatinine. Blood sugar noted to be elevated in the 250s by the time the patient's CMP resulted, therefore dextrose containing fluids were halted. Patient's insulin pump is currently also suspended. CBC was canceled secondary to hemolysis, will be repeated. Given all the above, patient will require inpatient admission, he is stable on nasal cannula oxygen at this time, [facility] hospitalist service was consulted for admission and the patient was admitted in stable condition for further management. * CRITICAL CARE TIME: (33) minutes -Stabilization of hypoxia with oxygen saturations less than 90% on room air requiring nasal cannula oxygen for correction, time spent at the bedside, interpretation of diagnostic studies and EKG, treatment of tachyarrhythmia with IV rate control agents, arrangement of admission Diagnosis: 1. Hypoxia, acute 2. Atrial fibrillation with RVR, transient 3. Elevated creatinine 4. Hypokalemia 5. Hypoglycemic episode 6. R LL pneumonia Disposition: ADMIT Torey Patterson DO Emergency Medicine Past Med/Surg History Medical History Altered mental status Aortic root enlargement BPH (benign prostatic hyperplasia) Burn CAD (coronary artery disease) F/U SUSAN CHERELLE Cellulitis of great toe, left Cellulitis of multiple sites of left hand and fingers COPD (chronic obstructive pulmonary disease) COVID-19 EARLY 2019-NOT HOSPITALIZED FOR COVID Diabetic peripheral neuropathy associated with type 2 diabetes mellitus Diabetic ulcer of left foot Dyslipidemia Dyspnea on effort GERD (gastroesophageal reflux disease) Hiatal hernia HTN (hypertension) Hyponatremia Hypothyroidism Loss of protective sensation of skin of foot NSTEMI (non-ST elevated myocardial infarction) Open wound, hand CHANTELL (obstructive sleep apnea) Osteomyelitis Personal history of diabetic foot ulcer Sleep apnea CPAP Status post amputation of finger Syncope and collapse POSSIBLE SEIZURE 3 YRS AGO??-NO ISSUE [facility]IN[facility]-NO NEUROLOGY Uncontrolled diabetes mellitus Surgical History H/O adenoidectomy History of cardiac cath 2019? [facility] [place]-NO STENTS History of colonoscopy History of hand surgery BILAT HANDS-FINGER AMPUTATIONS History of hip replacement RIGHT History of tonsillectomy History of tonsillectomy and adenoidectomy Family History Other Cancer Diabetes Hypertension Social History Smoking Status: Unknown if ever smoked Tobacco Type: Cigarettes Cigarettes Per Day: 30; Second Hand Exposure: No; Hx Alcohol Use: Yes Alcohol type: hard liquor Alcohol Intake Frequency Comment: 8 oz hard liquor daily per pt Hx Substance Use: No Preferred Language: [place] Communication Ability: Effective Visual Impairment: Limited Hearing Ability: Hard of Hearing Formula Bottler Required: No Beliefs That Will Affect Care: None marital status: Current Living Situation: Spouse and Family current occupational status: employed 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, 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, 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 [employer] How many Children do You have: 3 How many Children do You have Comment: and child able to assist with care as needed Feels Safe at Home: Yes Diet Comment: tries to watch diabetic diet, during the past year weight has: remained stable Assistive Devices: CPAP and Glasses Allergies Allergies Allergy/AdvReac Type Severity Reaction Status Date / Time DEIDRE Inhibitors AdvReac Unknown Cough Verified 01/28/22 11:01 Home Meds Home Medications Medication Instructions Recorded Confirmed clopidogrel 75 mg tablet (Plavix) 75 mg PO QAM 02/04/18 01/28/22 finasteride 5 mg tablet 5 mg PO QAM 02/04/18 01/28/22 folic acid 1 mg tablet 1 mg PO QAM 02/04/18 01/28/22 levothyroxine 125 mcg tablet 125 mcg PO QAM 02/04/18 01/28/22 tamsulosin 0.4 mg capsule (Flomax) 0.4 mg PO HS 02/04/18 01/28/22 losartan 50 mg tablet 50 mg PO BID 05/13/18 01/28/22 atorvastatin 40 mg tablet 40 mg PO QAM 04/14/20 01/28/22 furosemide 40 mg tablet 40 mg PO QAM 04/14/20 01/28/22 metoprolol succinate 25 mg 25 mg PO QAM 04/14/20 01/28/22 tablet,extended release 24 hr omeprazole 20 mg capsule,delayed 20 mg PO QAM 04/14/20 01/28/22 release sennosides 8.6 mg-docusate sodium 1 tab-cap PO QAM 04/14/20 01/28/22 50 mg tablet (Senokot-S) amlodipine 5 mg tablet 5 mg PO QAM 07/12/20 01/28/22 insulin aspart U-100 100 unit/mL 2 unit subcut CONTINOUS 07/12/20 01/28/22 subcutaneous solution aspirin 81 mg tablet,delayed 81 mg PO QAM 03/13/21 01/28/22 release gabapentin 300 mg capsule 300 mg PO TID 03/13/21 01/28/22 venlafaxine 150 mg 150 mg PO QAM 03/13/21 01/28/22 capsule,extended release 24 hr potassium chloride 20 mEq 20 meq PO QAM 08/12/21 01/28/22 tablet,extended release multivitamin 1 tab PO QAM 11/11/21 01/28/22 Previous Rx's Medication Instructions Recorded acetaminophen 325 mg tablet 650 mg PO Q4H PRN fever or pain 10/02/20 #90 tabs loperamide 2 mg capsule 2 mg PO Q6H PRN loose stool #30 10/02/20 caps Results & Data (ED) Vital Signs Vital Signs - 24 hr 02/26/22 05:48 02/26/22 06:42 02/26/22 07:00 Temperature 36.9 C Temperature Source Oral Pulse Rate 156 H Pulse Rate [Apical] 116 H Respiratory Rate 29 H 35 H Respiratory Effort / Characteristics Non-Labored Spontaneous Respiratory Depth Normal Respiratory Pattern Regular Blood Pressure 102/69 Blood Pressure [Right Arm] 102/69 Blood Pressure Mean 80 Blood Pressure Mean [Right Arm] 80 Pulse Oximetry 94 93 Oxygen Delivery Method Nasal Cannula Nasal Cannula Oxygen Flow Rate 5 6 Sepsis Recent Fever Within 48 Hours No Sepsis New/Unexplained Change in Mental Status No Sepsis Action Taken by Nursing No Action Required 02/26/22 07:00 02/26/22 07:24 02/26/22 08:05 Temperature Temperature Source Pulse Rate Pulse Rate [Apical] 101 H 93 H 94 H Respiratory Rate 22 20 20 Respiratory Effort / Characteristics Non-Labored Spontaneous Non-Labored Respiratory Depth Normal Normal Respiratory Pattern Blood Pressure Blood Pressure [Right Arm] 104/74 110/86 113/74 Blood Pressure Mean Blood Pressure Mean [Right Arm] 84 94 87 Pulse Oximetry 93 96 96 Oxygen Delivery Method Nasal Cannula Nasal Cannula Nasal Cannula Oxygen Flow Rate 6 5 5 Sepsis Recent Fever Within 48 Hours Sepsis New/Unexplained Change in Mental Status Sepsis Action Taken by Nursing Laboratory Data Result diagrams: 02/26/22 06:46 02/26/22 06:46 Lab Results 02/26/22 02/26/22 02/26/22 Range/Units 06:30 06:36 06:46 WBC Cancelled RBC Cancelled Hgb Cancelled Hct Cancelled MCV Cancelled MCH Cancelled MCHC Cancelled RDW Std Deviation Cancelled RDW Coeff of Juan Manuel Cancelled Plt Count Cancelled MPV Cancelled Immature Gran % (Auto) Cancelled Neut % (Auto) Cancelled Lymph % (Auto) Cancelled Frontier % (Auto) Cancelled Eos % (Auto) Cancelled Baso % (Auto) Cancelled Neut # (Auto) Cancelled Lymph # (Auto) Cancelled Frontier # (Auto) Cancelled Eos # (Auto) Cancelled Baso # (Auto) Cancelled Immature Gran # (Auto) Cancelled Absolute Nucleated RBC Cancelled Nucleated RBC % (auto) Cancelled Neutrophils % (Manual) Cancelled Band Neutrophils % Cancelled Lymphocytes % (Manual) Cancelled Prolymphocyte % Cancelled Reactive Lymphs % (Man) Cancelled Monocytes % (Manual) Cancelled Eosinophils % (Manual) Cancelled Basophils % (Manual) Cancelled Metamyelocytes % (Man) Cancelled Myelocytes % (Man) Cancelled Promyelocytes % (Man) Cancelled Blast Cells % (Manual) Cancelled Plasma Cell % (Manual) Cancelled Other Cells % Cancelled Nucleated RBC % Cancelled Neutrophils # (Manual) Cancelled Band Neutrophils # Cancelled Total Absolute Neuts Cancelled Lymphocytes # (Manual) Cancelled Prolymphocyte # Cancelled Reactive Lymphs # Cancelled Total Abs Lymphocytes Cancelled Monocytes # (Manual) Cancelled Eosinophils # (Manual) Cancelled Basophils # (Manual) Cancelled Metamyelocytes # (Man) Cancelled Myelocytes # (Manual) Cancelled Promyelocytes # (Man) Cancelled Blast Cells # (Man) Cancelled Plasma Cell # (Manual) Cancelled Other Cells # Cancelled Nucleated RBCs # (Man) Cancelled Hypersegmented Neuts Cancelled Hyposegmented Neuts Cancelled Hypogranular Neuts Cancelled Large Granular Lymphs Cancelled # Lrg Granular Lymphs Cancelled Hairy Cells Cancelled Smudge Cells Cancelled Toxic Granulation Cancelled Toxic Vacuolation Cancelled Dohle Bodies Cancelled Mary Rods Cancelled Platelet Estimate Cancelled Hypogranular Platelets Cancelled Clumped Platelets Cancelled Giant Platelets Cancelled Platelet Satelliting Cancelled RBC Morphology Cancelled Polychromasia Cancelled Hypochromasia Cancelled Poikilocytosis Cancelled Basophilic Stippling Cancelled Anisocytosis Cancelled Microcytosis Cancelled Macrocytosis Cancelled Spherocytes Cancelled Pappenheimer Bodies Cancelled Sickle Cells Cancelled Target Cells Cancelled Tear Drop Cells Cancelled Ovalocytes Cancelled Stomatocytes Cancelled Hicks-Irwindale Bodies Cancelled Echinocytes Cancelled Acanthocytes (Spur) Cancelled Rouleaux Cancelled RBC Agglutinates Cancelled Schistocytes Cancelled Sezary Cell Cancelled PT INR APTT PTT Ratio Sodium (136-145) mmol/L Potassium (3.5-5.1) mmol/L Chloride (98-107) mmol/L Carbon Dioxide (21-32) mmol/L Anion Gap (3-11) BUN (6-23) mg/dl Creatinine (0.6-1.4) mg/dl Est Cr Clr Drug Dosing ml/min Est GFR ( Amer) ml/min Est GFR (Non-Af Amer) ml/min BUN/Creatinine Ratio (10-20) Glucose (70-99(Fasting)) mg/dl POC Glucose 55 L* (70-99) mg/dl Calcium (8.5-10.1) mg/dl Magnesium (1.7-2.4) mg/dl Total Bilirubin (0.2-1.0) mg/dl AST (13-39) U/L ALT (7-52) U/L Alkaline Phosphatase (34-104) U/L Troponin I High Sens (0-20) pg/ml Total Protein (6.0-8.3) gm/dl Albumin (3.4-5.0) gm/dl Globulin (2.5-4.0) gm/dl Albumin/Globulin Ratio (0.9-2) Lipase (11-82) U/L TSH (0.300-4.500) uIu/ml SARS-CoV-2 (PCR) NEGATIVE (Negative) Influenza Type A (PCR) Negative (Neg) Influenza Type B (PCR) Negative (Neg) RSV (RT-PCR) Negative (Neg) Blood Parasites ID Cancelled 02/26/22 02/26/22 02/26/22 Range/Units 06:46 06:46 06:46 WBC RBC Hgb Hct MCV MCH MCHC RDW Std Deviation RDW Coeff of Juan Manuel Plt Count MPV Immature Gran % (Auto) Neut % (Auto) Lymph % (Auto) Frontier % (Auto) Eos % (Auto) Baso % (Auto) Neut # (Auto) Lymph # (Auto) Frontier # (Auto) Eos # (Auto) Baso # (Auto) Immature Gran # (Auto) Absolute Nucleated RBC Nucleated RBC % (auto) Neutrophils % (Manual) Band Neutrophils % Lymphocytes % (Manual) Prolymphocyte % Reactive Lymphs % (Man) Monocytes % (Manual) Eosinophils % (Manual) Basophils % (Manual) Metamyelocytes % (Man) Myelocytes % (Man) Promyelocytes % (Man) Blast Cells % (Manual) Plasma Cell % (Manual) Other Cells % Nucleated RBC % Neutrophils # (Manual) Band Neutrophils # Total Absolute Neuts Lymphocytes # (Manual) Prolymphocyte # Reactive Lymphs # Total Abs Lymphocytes Monocytes # (Manual) Eosinophils # (Manual) Basophils # (Manual) Metamyelocytes # (Man) Myelocytes # (Manual) Promyelocytes # (Man) Blast Cells # (Man) Plasma Cell # (Manual) Other Cells # Nucleated RBCs # (Man) Hypersegmented Neuts Hyposegmented Neuts Hypogranular Neuts Large Granular Lymphs # Lrg Granular Lymphs Hairy Cells Smudge Cells Toxic Granulation Toxic Vacuolation Dohle Bodies Mary Rods Platelet Estimate Hypogranular Platelets Clumped Platelets Giant Platelets Platelet Satelliting RBC Morphology Polychromasia Hypochromasia Poikilocytosis Basophilic Stippling Anisocytosis Microcytosis Macrocytosis Spherocytes Pappenheimer Bodies Sickle Cells Target Cells Tear Drop Cells Ovalocytes Stomatocytes Hicks-Irwindale Bodies Echinocytes Acanthocytes (Spur) Rouleaux RBC Agglutinates Schistocytes Sezary Cell PT Cancelled INR Cancelled APTT Cancelled PTT Ratio Cancelled Sodium 131 L (136-145) mmol/L Potassium 3.1 L (3.5-5.1) mmol/L Chloride 102 (98-107) mmol/L Carbon Dioxide 19 L (21-32) mmol/L Anion Gap 10 (3-11) BUN 25 H (6-23) mg/dl Creatinine 1.46 H (0.6-1.4) mg/dl Est Cr Clr Drug Dosing 69.5 ml/min Est GFR ( Amer) 58.1 ml/min Est GFR (Non-Af Amer) 50.1 ml/min BUN/Creatinine Ratio 17.1 (10-20) Glucose 254 H (70-99(Fasting)) mg/dl POC Glucose (70-99) mg/dl Calcium 7.6 L (8.5-10.1) mg/dl Magnesium 1.6 L (1.7-2.4) mg/dl Total Bilirubin 0.7 (0.2-1.0) mg/dl AST 24 (13-39) U/L ALT 20 (7-52) U/L Alkaline Phosphatase 72 (34-104) U/L Troponin I High Sens 79.4 H* (0-20) pg/ml Total Protein 5.6 L (6.0-8.3) gm/dl Albumin 2.9 L (3.4-5.0) gm/dl Globulin 2.7 (2.5-4.0) gm/dl Albumin/Globulin Ratio 1.1 (0.9-2) Lipase 24 (11-82) U/L TSH 2.442 (0.300-4.500) uIu/ml SARS-CoV-2 (PCR) (Negative) Influenza Type A (PCR) (Neg) Influenza Type B (PCR) (Neg) RSV (RT-PCR) (Neg) Blood Parasites ID 02/26/22 02/26/22 Range/Units 07:04 07:54 WBC RBC Hgb Hct MCV MCH MCHC RDW Std Deviation RDW Coeff of Juan Manuel Plt Count MPV Immature Gran % (Auto) Neut % (Auto) Lymph % (Auto) Frontier % (Auto) Eos % (Auto) Baso % (Auto) Neut # (Auto) Lymph # (Auto) Frontier # (Auto) Eos # (Auto) Baso # (Auto) Immature Gran # (Auto) Absolute Nucleated RBC Nucleated RBC % (auto) Neutrophils % (Manual) Band Neutrophils % Lymphocytes % (Manual) Prolymphocyte % Reactive Lymphs % (Man) Monocytes % (Manual) Eosinophils % (Manual) Basophils % (Manual) Metamyelocytes % (Man) Myelocytes % (Man) Promyelocytes % (Man) Blast Cells % (Manual) Plasma Cell % (Manual) Other Cells % Nucleated RBC % Neutrophils # (Manual) Band Neutrophils # Total Absolute Neuts Lymphocytes # (Manual) Prolymphocyte # Reactive Lymphs # Total Abs Lymphocytes Monocytes # (Manual) Eosinophils # (Manual) Basophils # (Manual) Metamyelocytes # (Man) Myelocytes # (Manual) Promyelocytes # (Man) Blast Cells # (Man) Plasma Cell # (Manual) Other Cells # Nucleated RBCs # (Man) Hypersegmented Neuts Hyposegmented Neuts Hypogranular Neuts Large Granular Lymphs # Lrg Granular Lymphs Hairy Cells Smudge Cells Toxic Granulation Toxic Vacuolation Dohle Bodies Mary Rods Platelet Estimate Hypogranular Platelets Clumped Platelets Giant Platelets Platelet Satelliting RBC Morphology Polychromasia Hypochromasia Poikilocytosis Basophilic Stippling Anisocytosis Microcytosis Macrocytosis Spherocytes Pappenheimer Bodies Sickle Cells Target Cells Tear Drop Cells Ovalocytes Stomatocytes Hicks-Irwindale Bodies Echinocytes Acanthocytes (Spur) Rouleaux RBC Agglutinates Schistocytes Sezary Cell PT INR APTT PTT Ratio Sodium (136-145) mmol/L Potassium (3.5-5.1) mmol/L Chloride (98-107) mmol/L Carbon Dioxide (21-32) mmol/L Anion Gap (3-11) BUN (6-23) mg/dl Creatinine (0.6-1.4) mg/dl Est Cr Clr Drug Dosing ml/min Est GFR ( Amer) ml/min Est GFR (Non-Af Amer) ml/min BUN/Creatinine Ratio (10-20) Glucose (70-99(Fasting)) mg/dl POC Glucose 63 L* 134 H (70-99) mg/dl Calcium (8.5-10.1) mg/dl Magnesium (1.7-2.4) mg/dl Total Bilirubin (0.2-1.0) mg/dl AST (13-39) U/L ALT (7-52) U/L Alkaline Phosphatase (34-104) U/L Troponin I High Sens (0-20) pg/ml Total Protein (6.0-8.3) gm/dl Albumin (3.4-5.0) gm/dl Globulin (2.5-4.0) gm/dl Albumin/Globulin Ratio (0.9-2) Lipase (11-82) U/L TSH (0.300-4.500) uIu/ml SARS-CoV-2 (PCR) (Negative) Influenza Type A (PCR) (Neg) Influenza Type B (PCR) (Neg) RSV (RT-PCR) (Neg) Blood Parasites ID Administered Medications Dextrose/Sodium Chloride (D5w And 1/2nss) 1,000 mls @ 80 mls/hr IV .[id number] UYNIOR Stop: 03/28/22 07:14 Last Infusion: 02/26/22 08:11 Dose: 0 mls/hr Documented By: Admin: 02/26/22 07:15 Dose: 80 mls/hr Documented By: RAFAEL Discontinued Medications Dextrose (Dextrose 50% 50 Ml Syringe) Confirm Administered Dose 50 ml IV .STK- MED ONE Stop: 02/26/22 06:40 Last Admin: 02/26/22 06:41 Dose: 50 ml Documented By: LATESHA Dextrose (Dextrose 50% 50 Ml Syringe) 50 ml IV NOW ONE Stop: 02/26/22 07:12 Last Admin: 02/26/22 07:15 Dose: 50 ml Documented By: RAFAEL Diltiazem HCl (Diltiazem Hcl 5 Mg/Ml 5 Ml Vial) 10 mg IV NOW STA Stop: 02/26/22 06:18 Last Admin: 02/26/22 06:23 Dose: 10 mg Documented By: LATESHA Co-signed By: DP Sodium Chloride (Nss) 500 mls @ 999 mls/hr IV .Q31M STA Stop: 02/26/22 06:06 Last Infusion: 02/26/22 06:59 Dose: 0 mls/hr Documented By: Admin: 02/26/22 06:28 Dose: 999 mls/hr Documented By: LATESHA Discharge Plan Visit Data Chief Complaint: Tachycardia Stated Complaint: HYPOGLYCEMIC ED Provider: Torey Patterson Discharge Problem: Hypoxia Forms Stand Alone Forms: My [facility] Prescriptions Prescriptions: No Action clopidogrel [Plavix] 75 mg tablet 75 mg PO QAM finasteride 5 mg tablet 5 mg PO QAM folic acid 1 mg tablet 1 mg PO QAM levothyroxine 125 mcg tablet 125 mcg PO QAM Rx Instructions: TAKE THIS MEDICATION AT LEAST 30 MINUTES BEFORE EATING OR ANY OTHER MEDICATION tamsulosin [Flomax] 0.4 mg capsule 0.4 mg PO HS losartan 50 mg tablet 50 mg PO BID furosemide 40 mg Tablet 40 mg PO QAM atorvastatin 40 mg Tablet 40 mg PO QAM sennosides-docusate sodium [Senokot-S] 8.6-50 mg Tablet 1 tab-cap PO QAM omeprazole 20 mg Capsule,Delayed Release(Dr/Ec) 20 mg PO QAM Rx Instructions: TAKE THIS MEDICATION ONCE DAILY ONE HOUR BEFORE FIRST MEAL OF THE DAY metoprolol succinate 25 mg Tablet Extended Release 24 Hr 25 mg PO QAM potassium chloride 20 mEq tablet extended release 20 meq PO QAM amlodipine 5 mg tablet 5 mg PO QAM insulin aspart U-100 100 unit/mL solution 2 unit subcut CONTINOUS Rx Instructions: DIRECTED VIA INSULIN PUMP multivitamin Tablet 1 tab PO QAM acetaminophen 325 mg Tablet 650 mg PO Q4H PRN (Reason: fever or pain) Qty: 90 0RF loperamide 2 mg Capsule 2 mg PO Q6H PRN (Reason: loose stool) Qty: 30 0RF gabapentin 300 mg capsule 300 mg PO TID aspirin 81 mg Tablet,Delayed Release (Dr/Ec) 81 mg PO QAM venlafaxine 150 mg Capsule,Extended Release 24hr 150 mg PO QAM Referrals Referrals: Farzad Hatfield DO [Primary Care Provider] -
[2022-02-26] MEDS ORDERED: dilTIAZem HCl 5 MG/ML 5 ML VIAL IV STA (06:17)
[2022-02-26] MEDS ORDERED: DEXTROSE 50% 50 ML SYRINGE IV ONE ×2 (06:39→07:11)
[2022-02-26] MEDS: D5W AND 1/2NSS 1,000 ML IV SCH ×2 (07:15→20:07)
[2022-02-26 07:38] LABS: Troponin I High Sensitivity 79.4 pg/ml (0-20)
[2022-02-26 07:43] LABS: Influenza A virus by PCR Negative (Neg); Influenza B virus by PCR Negative (Neg); RSV by PCR Negative (Neg); SARS CoV2 RNA(COVID-19) InHosp NEGATIVE (Negative)
[2022-02-26 07:47] LABS: Albumin Globulin Ratio 1.1 (0.9-2); Albumin Level 2.9 gm/dl (3.4-5.0); BUN Creatinine Ratio 17.1 (10-20); Bilirubin,Total 0.7 mg/dl (0.2-1.0); Calcium 7.6 mg/dl (8.5-10.1); Creatinine Clr Calc Pharmacy 69.5 ml/min; Est GFR (African American) 58.1 ml/min; Est GFR (Non-African American) 50.1 ml/min; Globulin 2.7 gm/dl (2.5-4.0); Magnesium 1.6 mg/dl (1.7-2.4); Potassium 3.1 mmol/L (3.5-5.1); Total Protein 5.6 gm/dl (6.0-8.3)
[2022-02-26] MEDS ORDERED: POTASSIUM CHLORIDE CRTAB 20 MEQ TABCR PO STA (07:58)
[2022-02-26] MEDS ORDERED: AZITHROMYCIN 500 MG in DEXTROSE 5% 250 ML IV ONE (07:59)
[2022-02-26] MEDS ORDERED: cefTRIAXone SODIUM 1,000 MG/50 ML BAG IV STA (07:59)
--- NOTE | 2022-02-26 08:30 | History & Physical Report ---
Date of Service February 26, 2022 Assessment & Plan (1) Pneumonia: Plan: Found by EMS to be hypoxic requiring 5 L of O2 - in ED found to have pneumonia and started on azithromycin and ceftriaxone - Admit to PCU - Continue antibiotics - O2 to maintain sats >92% (2) Hypoxia: Plan: Suspect secondary to #1 (3) Atrial fibrillation with RVR: Plan: Transient - converted to NSR in ED with diltiazem. Hx of similar event previously with electrolyte abnormalities in 2016. - Continue to monitor in PCU for now - Repeat EKG in AM - Continue outpatient beta-fer - Will hold off on cardiology consult for now but would reevaluate if pt develops recurrent atrial fibrillation (4) Elevated troponin: Plan: May be secondary to demand due to atrial fibrillation with RVR and pneumonia - Trend troponin - if worsening, consider repeat ECHO (last in August 2021) - Repeat EKG in AM (5) KRISTIN (acute kidney injury): Plan: Given IVF in ED - Hold furosemide for now - Follow labs (6) Alcohol dependence: Plan: Pt reports that he is currently drinking ~1 pint EtOH daily - Gabapentin protocol - Thiamine/folic acid (7) Hypokalemia: Plan: Repleted oral in ED (8) Hypomagnesemia: Plan: IV Mag ordered (9) Diabetes mellitus type 1: Plan: On insulin pump and CGM as outpatient - hypoglycemic episodes x 2 in past 24 hours. Last A1c on 02/16/22 was 6.3. - Continue insulin pump for now - if continued issues with hypoglycemia, may need to have pump settings adjusted (10) COPD (chronic obstructive pulmonary disease): (11) CAD (coronary artery disease): (12) GERD (gastroesophageal reflux disease): (13) BPH (benign prostatic hyperplasia): (14) Aortic root enlargement: Plan: Stable on last ECHO Plan Continue other home medications as appropriate. Clarified eye drop regimen in outpatient record - pt w/ hx ruptured globe repair 11/20/21, with [facility], s/p phaco/aphakia, PPV, corneal glue for perforation on 02/03/22 (OD) Pt seen and evaluated with collaborating physician, Dr. Rodírguez. Plan of care discussed and as outlined above. DVT Prophylaxis: Lovenox Code Status: Full code Lisa Charles PA-C History of Present Illness Chief Complaint: Low oxygen level Primary Care Provider: Farzad Hatfield, This is a 66-year-old male with a PMH of Type 1 DM on an insulin pump/CGM, CAD, chronic HFpEF, HTN, dyslipidemia, CHANTELL on CPAP, ascending aortic dilatation, asthma, GERD, BPH, seizure disorder, MGUS, and other history as listed below who presented to the ED today with hypoglycemia and hypoxia. Last night, his came home and found pt unresponsive - he found to be hypoglycemic but was not alert enough to take oral glucose so family called EMS who came and evaluated pt, gave unknown treatment, and sugar stabilized so pt was not transport. Around 4 am today, similar thing happened with decreased responsiveness with hypoglycemia and EMS was again called but this time was transported for evaluation after hypoxia noted in the field. He was also found to be tachycardiac with initial EKG showing atrial fibrillation with RVR with HR in 120s. Pt denies feeling ill or anything unusual prior to the events of last night. He notes chronic dyspnea with minimal exertion. Breathing was worse last night, even at rest, and again this morning. Currently, breathing feels back to baseline in the ED. He is having some drainage/congestion in throat that he feels like he cannot clear - thinks that his cough is related to this as he is not having significant chest congestion. No wheezing. Started with chills around 2 am today. Did not check temp at the time. +diarrhea but no N/V - started early this morning as well. Denies prior hx pneumonia that he can recall. No recent sick contacts. Denies chest pain, palpitations, HARDEN, dizziness. No dysuria or hematuria. No recent change in ongoing blurry vision. Has a CGM and an insulin pump (currently suspended). Has been vaccinated and boosted x 2 for COVID. His outpatient records were extensively reviewed - in 2016, pt was apparently hospitalized for DKA. During this admission he developed PAF in the setting of electrolyte disturbances. He was also noted to have alcohol withdrawal during this admission. Pt reports currently drinking approximately one pint of liquor daily. ECHO 08/11/21 - mildly increased LV wall thickness (concentric), small sized basal inferior and posterior wall motion abnormality with hypokinesis of the segments; mild secondary MR, aortic root moderately enlarged at 4.4 cm, proximal ascending thoracic aorta is mildly enlarged at 4.0 cm. Compared to Mar 06, 2020 - no significant change. Allergies Allergy/AdvReac Type Severity Reaction Status Date / Time DEIDRE Inhibitors AdvReac Unknown Cough Verified 01/28/22 11:01 Home Medications Medication Instructions Recorded Confirmed Type clopidogrel 75 mg tablet (Plavix) 75 mg PO QAM 02/04/18 02/26/22 History finasteride 5 mg tablet 5 mg PO QAM 02/04/18 02/26/22 History folic acid 1 mg tablet 1 mg PO QAM 02/04/18 02/26/22 History levothyroxine 125 mcg tablet 125 mcg PO QAM 02/04/18 02/26/22 History tamsulosin 0.4 mg capsule (Flomax) 0.4 mg PO DAILY 02/04/18 02/26/22 History losartan 50 mg tablet 50 mg PO BID 05/13/18 02/26/22 History atorvastatin 40 mg tablet 40 mg PO QAM 04/14/20 02/26/22 History furosemide 40 mg tablet 40 mg PO QAM 04/14/20 02/26/22 History metoprolol succinate 25 mg 25 mg PO QAM 04/14/20 02/26/22 History tablet,extended release 24 hr omeprazole 20 mg capsule,delayed 20 mg PO QAM 04/14/20 02/26/22 History release sennosides 8.6 mg-docusate sodium 1 tab-cap PO QAM 04/14/20 02/26/22 History 50 mg tablet (Senokot-S) amlodipine 5 mg tablet 5 mg PO QAM 07/12/20 02/26/22 History insulin aspart U-100 100 unit/mL 2 unit subcut CONTINOUS 07/12/20 02/26/22 History subcutaneous solution aspirin 81 mg tablet,delayed 81 mg PO QAM 03/13/21 02/26/22 History release gabapentin 300 mg capsule 300 mg PO BID 03/13/21 02/26/22 History potassium chloride 20 mEq 20 meq PO QAM 08/12/21 02/26/22 History tablet,extended release multivitamin 1 tab PO QAM 11/11/21 02/26/22 History atropine 1 % eye drops 1 drp OPR BID 02/26/22 02/26/22 History ofloxacin 0.3 % ear drops 4 drp OTL BID 02/26/22 02/26/22 History ofloxacin 0.3 % eye drops 1 drp ophthalmic (eye) QID 02/26/22 02/26/22 History prednisolone acetate 1 % eye 1 drp OPR 6XD 02/26/22 02/26/22 History drops,suspension prednisone 20 mg tablet See Rx Instructions .Route .COMPLEX 02/26/22 02/26/22 History venlafaxine 75 mg capsule,extended 75 mg PO DAILY 02/26/22 02/26/22 History release 24 hr Past Med/Surg History Medical History (Updated 02/26/22 @ 13:08 by Chyna Charles PA-C) Alcohol dependence Aortic root enlargement BPH (benign prostatic hyperplasia) Burn CAD (coronary artery disease) F/U [facility] Cellulitis of great toe, left Cellulitis of multiple sites of left hand and fingers COPD (chronic obstructive pulmonary disease) COVID-19 EARLY 2019-NOT HOSPITALIZED FOR COVID Diabetes mellitus type 1 Diabetic peripheral neuropathy associated with type 2 diabetes mellitus Diabetic ulcer of left foot Dyslipidemia Dyspnea on effort GERD (gastroesophageal reflux disease) Hiatal hernia HTN (hypertension) Hyponatremia Hypothyroidism Loss of protective sensation of skin of foot NSTEMI (non-ST elevated myocardial infarction) Open wound, hand CHANTELL (obstructive sleep apnea) Osteomyelitis PAF (paroxysmal atrial fibrillation) Sleep apnea CPAP Status post amputation of finger Syncope and collapse POSSIBLE SEIZURE 3 YRS AGO??-NO ISSUE SSINCE-NO NEUROLOGY Surgical History H/O adenoidectomy History of cardiac cath 2019? [facility]-NO STENTS History of colonoscopy History of hand surgery BILAT HANDS-FINGER AMPUTATIONS History of hip replacement RIGHT History of tonsillectomy History of tonsillectomy and adenoidectomy Family History Other Cancer Diabetes Hypertension Social History Smoking Status: Never smoker Tobacco Type: Cigarettes Cigarettes Per Day: 30; Second Hand Exposure: No; Hx Alcohol Use: Yes Alcohol type: hard liquor Alcohol Intake Frequency Comment: 8 oz hard liquor daily per pt Hx Substance Use: No Preferred Language: Hungarian Communication Ability: Effective Visual Impairment: Limited Hearing Ability: Hard of Hearing Senior Portfolio Manager Required: No Beliefs That Will Affect Care: None marital status: Current Living Situation: Spouse current occupational status: employed 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, 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, 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 [employer] How many Children do You have: 3 How many Children do You have Comment: and child able to assist with care as needed Other Information That Helps Us Care for You: No Feels Safe at Home: Yes Safety Concerns: Feels Safe At This Time Diet Comment: tries to watch diabetic diet, during the past year weight has: remained stable Assistive Devices: CPAP and Glasses Review of Systems Review of Systems: All systems reviewed & are unremarkable except as noted in HPI & below Constitutional: + chills and + fatigue Eyes: no worsening vision Ear, Nose, Mouth, Throat: as per Subjective / HPI Respiratory: + cough and + dyspnea on exertion; no wheezing Cardiovascular: + edema; no chest pain, no palpitations and no syncope Gastrointestinal: + diarrhea/loose stools; no abdominal pain, no nausea, no vomiting and no blood in stools Genitourinary: no dysuria or no hematuria Musculoskeletal: no back pain and no neck pain Integumentary: no yellowing of the skin Neurologic: no seizure-like activity, no dizziness and no headache(s) Psychiatric: no depression and no anxiety Physical Exam Constitutional: well developed and well nourished; no acute distress Eyes: + anicteric sclerae ENMT: external ear and nose normal, oropharynx normal Neck: trachea midline Respiratory: no respiratory distress Auscultation: + diminished lung sounds; no rales and no rhonchi Cardiovascular: Rate/Rhythm: regular rate and regular rhythm Extremities: + edema (1+ pitting pretibial) Gastrointestinal (Abdomen): Inspection/Auscultation: normal bowel sounds; abdomen not distended Percussion/Palpation: abdomen soft; abdomen nontender Musculoskeletal: Head/Neck/Chest: normocephalic, head atraumatic and neck supple multiple finger amputations Skin: no jaundice Neurologic: moves all extremities; not confused Psychiatric: A+Ox3, euthymic affect Results & Data Results & Data ([facility]) Vital Signs (Past 12 Hours) Vital Signs Temp Pulse Pulse Resp BP BP Pulse Ox 02/26/22 08:05 94 H 20 113/74 96 02/26/22 07:24 93 H 20 110/86 96 02/26/22 07:00 101 H 22 104/74 93 02/26/22 07:00 93 02/26/22 06:42 116 H 35 H 102/69 02/26/22 05:48 36.9 C 156 H 29 H 94 O2 Del Method O2 Flow Rate 02/26/22 08:05 Nasal Cannula 5 02/26/22 07:24 Nasal Cannula 5 02/26/22 07:00 Nasal Cannula 6 02/26/22 07:00 Nasal Cannula 6 02/26/22 06:42 02/26/22 05:48 Nasal Cannula 5 Laboratory Results Laboratory Results - last 24 hr 02/26/22 02/26/22 02/26/22 06:30 06:36 06:46 WBC Cancelled RBC Cancelled Hgb Cancelled Hct Cancelled MCV Cancelled MCH Cancelled MCHC Cancelled RDW Std Deviation Cancelled RDW Coeff of Juan Manuel Cancelled Plt Count Cancelled MPV Cancelled Immature Gran % (Auto) Cancelled Neut % (Auto) Cancelled Lymph % (Auto) Cancelled Wilbarger % (Auto) Cancelled Eos % (Auto) Cancelled Baso % (Auto) Cancelled Neut # (Auto) Cancelled Lymph # (Auto) Cancelled [place] # (Auto) Cancelled Eos # (Auto) Cancelled Baso # (Auto) Cancelled Immature Gran # (Auto) Cancelled Absolute Nucleated RBC Cancelled Nucleated RBC % (auto) Cancelled Neutrophils % (Manual) Cancelled Band Neutrophils % Cancelled Lymphocytes % (Manual) Cancelled Prolymphocyte % Cancelled Reactive Lymphs % (Man) Cancelled Monocytes % (Manual) Cancelled Eosinophils % (Manual) Cancelled Basophils % (Manual) Cancelled Metamyelocytes % (Man) Cancelled Myelocytes % (Man) Cancelled Promyelocytes % (Man) Cancelled Blast Cells % (Manual) Cancelled Plasma Cell % (Manual) Cancelled Other Cells % Cancelled Nucleated RBC % Cancelled Neutrophils # (Manual) Cancelled Band Neutrophils # Cancelled Total Absolute Neuts Cancelled Lymphocytes # (Manual) Cancelled Prolymphocyte # Cancelled Reactive Lymphs # Cancelled Total Abs Lymphocytes Cancelled Monocytes # (Manual) Cancelled Eosinophils # (Manual) Cancelled Basophils # (Manual) Cancelled Metamyelocytes # (Man) Cancelled Myelocytes # (Manual) Cancelled Promyelocytes # (Man) Cancelled Blast Cells # (Man) Cancelled Plasma Cell # (Manual) Cancelled Other Cells # Cancelled Nucleated RBCs # (Man) Cancelled Hypersegmented Neuts Cancelled Hyposegmented Neuts Cancelled Hypogranular Neuts Cancelled Large Granular Lymphs Cancelled # Lrg Granular Lymphs Cancelled Hairy Cells Cancelled Smudge Cells Cancelled Toxic Granulation Cancelled Toxic Vacuolation Cancelled Dohle Bodies Cancelled Mary Rods Cancelled Platelet Estimate Cancelled Hypogranular Platelets Cancelled Clumped Platelets Cancelled Giant Platelets Cancelled Platelet Satelliting Cancelled RBC Morphology Cancelled Polychromasia Cancelled Hypochromasia Cancelled Poikilocytosis Cancelled Basophilic Stippling Cancelled Anisocytosis Cancelled Microcytosis Cancelled Macrocytosis Cancelled Spherocytes Cancelled Pappenheimer Bodies Cancelled Sickle Cells Cancelled Target Cells Cancelled Tear Drop Cells Cancelled Ovalocytes Cancelled Stomatocytes Cancelled Hicks-Allison Bodies Cancelled Echinocytes Cancelled Acanthocytes (Spur) Cancelled Rouleaux Cancelled RBC Agglutinates Cancelled Schistocytes Cancelled Sezary Cell Cancelled PT INR APTT PTT Ratio Sodium Potassium Chloride Carbon Dioxide Anion Gap BUN Creatinine Est Cr Clr Drug Dosing Est GFR ( Amer) Est GFR (Non-Af Amer) BUN/Creatinine Ratio Glucose POC Glucose 55 L* Calcium Magnesium Total Bilirubin AST ALT Alkaline Phosphatase Troponin I High Sens Total Protein Albumin Globulin Albumin/Globulin Ratio Lipase TSH SARS-CoV-2 (PCR) NEGATIVE Influenza Type A (PCR) Negative Influenza Type B (PCR) Negative RSV (RT-PCR) Negative Blood Parasites ID Cancelled 02/26/22 02/26/22 02/26/22 06:46 06:46 06:46 WBC RBC Hgb Hct MCV MCH MCHC RDW Std Deviation RDW Coeff of Juan Manuel Plt Count MPV Immature Gran % (Auto) Neut % (Auto) Lymph % (Auto) [place] % (Auto) Eos % (Auto) Baso % (Auto) Neut # (Auto) Lymph # (Auto) [place] # (Auto) Eos # (Auto) Baso # (Auto) Immature Gran # (Auto) Absolute Nucleated RBC Nucleated RBC % (auto) Neutrophils % (Manual) Band Neutrophils % Lymphocytes % (Manual) Prolymphocyte % Reactive Lymphs % (Man) Monocytes % (Manual) Eosinophils % (Manual) Basophils % (Manual) Metamyelocytes % (Man) Myelocytes % (Man) Promyelocytes % (Man) Blast Cells % (Manual) Plasma Cell % (Manual) Other Cells % Nucleated RBC % Neutrophils # (Manual) Band Neutrophils # Total Absolute Neuts Lymphocytes # (Manual) Prolymphocyte # Reactive Lymphs # Total Abs Lymphocytes Monocytes # (Manual) Eosinophils # (Manual) Basophils # (Manual) Metamyelocytes # (Man) Myelocytes # (Manual) Promyelocytes # (Man) Blast Cells # (Man) Plasma Cell # (Manual) Other Cells # Nucleated RBCs # (Man) Hypersegmented Neuts Hyposegmented Neuts Hypogranular Neuts Large Granular Lymphs # Lrg Granular Lymphs Hairy Cells Smudge Cells Toxic Granulation Toxic Vacuolation Dohle Bodies Mary Rods Platelet Estimate Hypogranular Platelets Clumped Platelets Giant Platelets Platelet Satelliting RBC Morphology Polychromasia Hypochromasia Poikilocytosis Basophilic Stippling Anisocytosis Microcytosis Macrocytosis Spherocytes Pappenheimer Bodies Sickle Cells Target Cells Tear Drop Cells Ovalocytes Stomatocytes Hicks-Allison Bodies Echinocytes Acanthocytes (Spur) Rouleaux RBC Agglutinates Schistocytes Sezary Cell PT Cancelled INR Cancelled APTT Cancelled PTT Ratio Cancelled Sodium 131 L Potassium 3.1 L Chloride 102 Carbon Dioxide 19 L Anion Gap 10 BUN 25 H Creatinine 1.46 H Est Cr Clr Drug Dosing 69.5 Est GFR ( Amer) 58.1 Est GFR (Non-Af Amer) 50.1 BUN/Creatinine Ratio 17.1 Glucose 254 H POC Glucose Calcium 7.6 L Magnesium 1.6 L Total Bilirubin 0.7 AST 24 ALT 20 Alkaline Phosphatase 72 Troponin I High Sens 79.4 H* Total Protein 5.6 L Albumin 2.9 L Globulin 2.7 Albumin/Globulin Ratio 1.1 Lipase 24 TSH 2.442 SARS-CoV-2 (PCR) Influenza Type A (PCR) Influenza Type B (PCR) RSV (RT-PCR) Blood Parasites ID 02/26/22 02/26/22 07:04 07:54 WBC RBC Hgb Hct MCV MCH MCHC RDW Std Deviation RDW Coeff of Juan Manuel Plt Count MPV Immature Gran % (Auto) Neut % (Auto) Lymph % (Auto) Wil[place]ger % (Auto) Eos % (Auto) Baso % (Auto) Neut # (Auto) Lymph # (Auto) [place] # (Auto) Eos # (Auto) Baso # (Auto) Immature Gran # (Auto) Absolute Nucleated RBC Nucleated RBC % (auto) Neutrophils % (Manual) Band Neutrophils % Lymphocytes % (Manual) Prolymphocyte % Reactive Lymphs % (Man) Monocytes % (Manual) Eosinophils % (Manual) Basophils % (Manual) Metamyelocytes % (Man) Myelocytes % (Man) Promyelocytes % (Man) Blast Cells % (Manual) Plasma Cell % (Manual) Other Cells % Nucleated RBC % Neutrophils # (Manual) Band Neutrophils # Total Absolute Neuts Lymphocytes # (Manual) Prolymphocyte # Reactive Lymphs # Total Abs Lymphocytes Monocytes # (Manual) Eosinophils # (Manual) Basophils # (Manual) Metamyelocytes # (Man) Myelocytes # (Manual) Promyelocytes # (Man) Blast Cells # (Man) Plasma Cell # (Manual) Other Cells # Nucleated RBCs # (Man) Hypersegmented Neuts Hyposegmented Neuts Hypogranular Neuts Large Granular Lymphs # Lrg Granular Lymphs Hairy Cells Smudge Cells Toxic Granulation Toxic Vacuolation Dohle Bodies Mary Rods Platelet Estimate Hypogranular Platelets Clumped Platelets Giant Platelets Platelet Satelliting RBC Morphology Polychromasia Hypochromasia Poikilocytosis Basophilic Stippling Anisocytosis Microcytosis Macrocytosis Spherocytes Pappenheimer Bodies Sickle Cells Target Cells Tear Drop Cells Ovalocytes Stomatocytes Hicks-Allison Bodies Echinocytes Acanthocytes (Spur) Rouleaux RBC Agglutinates Schistocytes Sezary Cell PT INR APTT PTT Ratio Sodium Potassium Chloride Carbon Dioxide Anion Gap BUN Creatinine Est Cr Clr Drug Dosing Est GFR ( Amer) Est GFR (Non-Af Amer) BUN/Creatinine Ratio Glucose POC Glucose 63 L* 134 H Calcium Magnesium Total Bilirubin AST ALT Alkaline Phosphatase Troponin I High Sens Total Protein Albumin Globulin Albumin/Globulin Ratio Lipase TSH SARS-CoV-2 (PCR) Influenza Type A (PCR) Influenza Type B (PCR) RSV (RT-PCR) Blood Parasites ID Diagnostic Findings Chest X-ray 02/26/22 - IMPRESSION: A new right lower lung zone airspace opacity consistent with a pneumonia. Recommend one to 2 month chest x-ray follow-up to ensure resolution. Medications Administered Dextrose/Sodium Chloride (D5w And 1/2nss) 1,000 mls @ 80 mls/hr IV .[id number] YUNIOR Stop: 03/28/22 07:14 Last Infusion: 02/26/22 08:11 Dose: 0 mls/hr Documented By: Admin: 02/26/22 07:15 Dose: 80 mls/hr Documented By: RAFAEL Discontinued Medications Dextrose (Dextrose 50% 50 Ml Syringe) Confirm Administered Dose 50 ml IV .STK- MED ONE Stop: 02/26/22 06:40 Last Admin: 02/26/22 06:41 Dose: 50 ml Documented By: LATESHA Dextrose (Dextrose 50% 50 Ml Syringe) 50 ml IV NOW ONE Stop: 02/26/22 07:12 Last Admin: 02/26/22 07:15 Dose: 50 ml Documented By: RAFAEL Diltiazem HCl (Diltiazem Hcl 5 Mg/Ml 5 Ml Vial) 10 mg IV NOW STA Stop: 02/26/22 06:18 Last Admin: 02/26/22 06:23 Dose: 10 mg Documented By: LATESHA Co-signed By: MANDEEP Sodium Chloride (Nss) 500 mls @ 999 mls/hr IV .Q31M STA Stop: 02/26/22 06:06 Last Infusion: 02/26/22 06:59 Dose: 0 mls/hr Documented By: Admin: 02/26/22 06:28 Dose: 999 mls/hr Documented By: LATESHA Supervising Physician Co-Signing Physician Notes Pt was seen and examined. Agreed with Chyna CAMACHO exam, assessment and plan. 66-year-old male with a PMH of Type 1 DM on an insulin pump/CGM, CAD, chronic HFpEF, HTN, dyslipidemia, CHANTELL on CPAP, ascending aortic dilatation, asthma, GERD, BPH, seizure disorder, MGUS, presented to the ED today with hypoglycemia and hypoxia. Last night found patient unresponsive with low BS. EMS called and assisted with the hypoglycemia, then BS improved. In the middle of the night checked on him. He was found to be hypoglycemic with minimal response and hypoxia. EMS was called again and he was brought to the ER. He was also found to be tachycardiac with initial EKG showing atrial fibrillation with RVR with HR in 120s. Pt said last night his breathing seems to be worst. He said that his insulin pump its function properly and he did not take any extra insulin. Pt said that he drinks about 1pin of alcohol daily. Denies any history of DT. CXR showed new right lower lung zone airspace opacity consistent with a pneumonia. Received IV ceftriaxone and azithromycin in the ER, will continue abx for now. Troponin elevated possible due to the brief episode of afib. Pt has history of P afib. denies any chest pain. Will trend troponin. if trop continue to increase, will get an echo. Will continue metoprolol, aspirin and statin. Consider cardiology consult if trop continue to rise or back to afib. Electrolytes replaced. Keep K above 4 and Magnesium above 2. Continue monitor closely in tele. Continue alcohol withdrawal protocol with gabapentin. Counseling on alcohol cessation. Continue monitor closely for signs of alcohol withdrawal. MD Marcos
[2022-02-26 08:48] LABS: Basophils # (auto) 0.07 K/uL (0-0.2); Basophils % (auto) 0.4 %; Eosinophils # (auto) 0.16 K/uL (0-0.50); Eosinophils % (auto) 0.9 %; Hematocrit (blood only) 39.8 % (40.1-51.0); Hemoglobin 13.6 g/dl (14.0-18.0); Immature Granulocytes # (auto) 0.16 K/uL (0.00-0.02); Immature Granulocytes % (auto) 0.9 %; Lymphocytes # (auto) 0.56 K/uL (1.2-3.4); Lymphocytes % (auto) 3.1 %; Mean Corpuscular Hgb Conc 34.2 g/dL (32.0-36.0); Mean Corpuscular Volume 96.6 fL (80.0-100.0); Mean Platelet Volume 10.1 fL (9.4-12.4); Monocytes # (auto) 1.65 K/uL (0.24-0.82); Monocytes % (auto) 9.2 %; Neutrophils # (auto) 15.29 K/uL (1.4-6.5); Neutrophils % (auto) 85.5 %; Platelet Count 240 K/uL (130-400); RDW Standard Deviation 67.2 fL (36.4-46.3); Red Blood Count 4.12 M/uL (4.63-6.08); White Blood Count 17.89 K/ul (4.8-10.8)
[2022-02-26] MEDS ORDERED: MAGNESIUM SULFATE / D5W 1 GM/100 ML BAG IV ONE (08:56)
--- NOTE | 2022-02-26 09:03 | Electrocardiogram Report ---
Test Reason : Blood Pressure : / mmHG Vent. Rate : 157 BPM Atrial Rate : 157 BPM P-R Int : 124 ms QRS Dur : 090 ms QT Int : 234 ms P-R-T Axes : 091 044 -23 degrees QTc Int : 378 ms Poor data quality, interpretation may be adversely affected Supraventricular tachycardia Abnormal ECG When compared with ECG of 13-MAR-2021 15:00, Supraventricular tachycardia now present Vent. rate has increased BY 85 BPM Confirmed by Ezra Sanon ([id number]) on 02/26/2022 9:02:58 AM Referred By: Confirmed By:Ezra Sanon
[2022-02-26 09:20] LABS: Partial Thromboplastin Ratio 0.7; Partial Thromboplastin Time 20.1 Seconds (21.0-31.0); Prothrombin Time 10.7 Seconds (9.0-12.0)
--- NOTE | 2022-02-26 09:57 | XRay Report ---
XR chest 1V portable HISTORY: Shortness of breath. Cough. Atypical Chest Pain COMPARISON: Chest 09/28/2020. FINDINGS: No pneumothorax. No pleural effusions. The heart remains mildly enlarged. Large hiatus rose ia, unchanged. There is a new right lower lung zone airspace opacity. This likely represents a pneumo richard. No evidence for pulmonary edema. IMPRESSION: A new right lower lung zone airspace opacity consistent with a pneumonia. Recommend one to 2 month est x-ray follow-up to ensure resolution. ACT 112: Negative or not required by law. Electronically signed by: Mike Morfin M.D. 02/26/2022 9:54 AM
[2022-02-26] MEDS ORDERED: ACETAMINOPHEN 325 MG TAB PO PRN (10:24)
[2022-02-26] MEDS ORDERED: GABAPENTIN 1200MG ALCOHOL WITHDRAWAL LOAD PO STA (12:03)
[2022-02-26] MEDS ORDERED: LORazepam 1 MG TAB PO PRN (12:03)
[2022-02-26] MEDS ORDERED: PHARMACY GLYCEMIC MGMT CONSULT PRN (12:06)
[2022-02-26] MEDS ORDERED: GABAPENTIN 600 MG TAB PO ONE (12:15)
[2022-02-26] MEDS: FOLIC ACID 1 MG TAB PO SCH (14:04)
[2022-02-26] MEDS: THIAMINE HCL 100 MG TAB PO SCH (14:05)
[2022-02-26] MEDS ORDERED: DEXTROSE 50% 50 ML SYRINGE IV PRN (14:15)
[2022-02-26] MEDS ORDERED: GLUCAGON FOR INJ 1 MG VIAL SQ PRN (14:15)
[2022-02-26] MEDS ORDERED: INSULIN ASPART 100 UNITS/ML VIAL SC PRN (14:15)
[2022-02-26] MEDS ORDERED: GLUCOSE 40% GEL 15 GM TUBE PO PRN (14:15)
[2022-02-26] MEDS ORDERED: GLUCOSE 10 TAB/TUBE PO PRN (14:15)
--- NOTE | 2022-02-26 15:39 | Communication Note ---
Date of Service: February 26, 2022 Plan from most recent outpatient glycemic pharmacist management note on 02/20/22. Pt's took his pump home so will order coverage for overnight with goal of restarting the pump tomorrow. Lisa Charles PA-C Diabetes Medications: Omnipod Insulin Pump (Serial Number: [id number]) Insulin: Novolog Basal Rate:12 am -10 am:2.1units/hour 10 am -7 pm: 2.75 units/hour 7 pm -9:30 pm: 1.90 9:30 pm-12 am: 2.1 units/hour Bolus Calculator: on and using ICR: 1:3 ISF: 1:8 Blood Glucose Goal Limits: 70-150 Bolus Calculator: Target B Correct above: 150 Minimum B Active Insulin Time: 4 hours 65 g with breakfast/lunch and dinner when unsure of what carbohydrate amount to input Novolog 1:10 over 150 for procedure Diabetes Health Maintenance: up-to-date Aura Pulido [facility] Clinical Pharmacist Medication Therapy Disease Management 02/20/2022, 10:33 AM
--- NOTE | 2022-02-26 16:00 | Electrocardiogram Report ---
Test Reason : Blood Pressure : / mmHG Vent. Rate : 093 BPM Atrial Rate : 093 BPM P-R Int : 162 ms QRS Dur : 090 ms QT Int : 330 ms P-R-T Axes : 022 050 031 degrees QTc Int : 410 ms Normal sinus rhythm Normal ECG When compared with ECG of 26-FEB-2022 05:42, Supraventricular tachycardia no longer present Vent. rate has decreased BY 64 BPM Confirmed by Ezra Sanon ([id number]) on 02/26/2022 4:00:14 PM Referred By: REFERRED SELF Confirmed By:Ezra Sanon
[2022-02-26] MEDS: INSULIN ASPART PER UNIT SC SCH ×2 (17:44→21:03)
[2022-02-26] MEDS: OFLOXACIN 0.3% 75 DROPS/5 ML BTL OPR SCH ×3 (17:44→19:56)
[2022-02-26] MEDS: prednisoLONE acetate 1% OP SUSP 5 ML BTL OPR SCH ×4 (17:44→21:04)
[2022-02-26] MEDS: predniSONE 10 MG TABLET PO SCH ×2 (17:45→19:57)
[2022-02-26] MEDS: GABAPENTIN 600 MG TAB PO SCH (17:50)
[2022-02-26] MEDS ORDERED: LANTUS PER UNIT CHARGE SQ ONE ×2 (18:15→21:00)
[2022-02-26] MEDS: ATROPINE SULFATE 1% OP SOLN 5 ML BTL OPR SCH (19:55)
[2022-02-26] MEDS: LOSARTAN POTASSIUM 50 MG TAB PO SCH (19:55)
[2022-02-26] MEDS: OFLOXACIN 0.3% 75 DROPS/5 ML BTL OTL SCH (19:56)
[2022-02-26] MEDS ORDERED: LANTUS PER UNIT CHARGE SQ SCH (21:00)
[2022-02-26] MEDS: ENOXAPARIN INJ 40 MG/0.4 ML SYR SQ SCH (21:03)
[2022-02-27] MEDS: GABAPENTIN 600 MG TAB PO SCH ×4 (00:18→23:34)
[2022-02-27] MEDS ORDERED: SODIUM CHLORIDE 0.9% 500 ML IV SCH (01:15)
[2022-02-27] MEDS ORDERED: INSULIN ASPART PER UNIT SC SCH ×3 (02:00)
[2022-02-27 06:31] LABS: Basophils # (auto) 0.03 K/uL (0-0.2); Basophils % (auto) 0.2 %; Eosinophils # (auto) 0.09 K/uL (0-0.50); Eosinophils % (auto) 0.5 %; Hematocrit (blood only) 34.6 % (40.1-51.0); Hemoglobin 11.3 g/dl (14.0-18.0); Immature Granulocytes # (auto) 0.16 K/uL (0.00-0.02); Immature Granulocytes % (auto) 0.9 %; Lymphocytes # (auto) 0.87 K/uL (1.2-3.4); Lymphocytes % (auto) 4.7 %; Mean Corpuscular Hemoglobin 32.4 pg (25.0-34.0); Mean Corpuscular Hgb Conc 32.7 g/dL (32.0-36.0); Mean Corpuscular Volume 99.1 fL (80.0-100.0); Mean Platelet Volume 10.1 fL (9.4-12.4); Monocytes # (auto) 0.74 K/uL (0.24-0.82); Neutrophils # (auto) 16.78 K/uL (1.4-6.5); Neutrophils % (auto) 89.7 %; Platelet Count 189 K/uL (130-400); RDW Coefficient of Variation 19.8 % (11.5-14.5); RDW Standard Deviation 70.8 fL (36.4-46.3); Red Blood Count 3.49 M/uL (4.63-6.08); White Blood Count 18.67 K/ul (4.8-10.8)
[2022-02-27] MEDS: LEVOTHYROXINE SODIUM 125 MCG TABLET PO SCH (06:41)
[2022-02-27] MEDS: prednisoLONE acetate 1% OP SUSP 5 ML BTL OPR SCH ×6 (06:42→21:18)
[2022-02-27 07:04] LABS: BUN Creatinine Ratio 18.2 (10-20); Calcium 8.4 mg/dl (8.5-10.1); Creatinine Clr Calc Pharmacy 81.7 ml/min; Est GFR (African American) 72.9 ml/min; Est GFR (Non-African American) 62.9 ml/min; Potassium 4.3 mmol/L (3.5-5.1)
[2022-02-27] MEDS: LOSARTAN POTASSIUM 50 MG TAB PO SCH ×2 (08:07→20:37)
[2022-02-27] MEDS: DOCUSATE SODIUM/SENNA 50/8.6MG TAB PO SCH (08:08)
[2022-02-27] MEDS: PANTOprazole 40 MG TAB PO SCH (08:08)
[2022-02-27] MEDS: ASPIRIN 81 MG ECTAB PO SCH (08:09)
[2022-02-27] MEDS: ATORVASTATIN 40 MG TAB PO SCH (08:09)
[2022-02-27] MEDS: FINASTERIDE 5 MG TAB PO SCH (08:09)
[2022-02-27] MEDS: POTASSIUM CHLORIDE CRTAB 20 MEQ TABCR PO SCH (08:09)
[2022-02-27] MEDS: METOPROLOL SUCC 25MG EXT REL TAB PO SCH (08:09)
[2022-02-27] MEDS: amLODIPine BESYLATE 5 MG TAB PO SCH (08:09)
[2022-02-27] MEDS: FOLIC ACID 1 MG TAB PO SCH (08:10)
[2022-02-27] MEDS: MULTIVITAMIN TAB PO SCH (08:10)
[2022-02-27] MEDS: VENLAFAXINE HCL XR 75 MG CAPXR PO SCH (08:10)
[2022-02-27] MEDS: CLOPIDOGREL BISULFATE 75 MG TAB PO SCH (08:10)
[2022-02-27] MEDS: TAMSULOSIN HCL 0.4 MG CAP PO SCH (08:11)
[2022-02-27] MEDS: predniSONE 10 MG TABLET PO SCH (08:12)
[2022-02-27] MEDS: THIAMINE HCL 100 MG TAB PO SCH (08:12)
[2022-02-27] MEDS: OFLOXACIN 0.3% 75 DROPS/5 ML BTL OTL SCH ×2 (08:20→20:38)
[2022-02-27] MEDS: ATROPINE SULFATE 1% OP SOLN 5 ML BTL OPR SCH ×2 (08:20→20:37)
[2022-02-27] MEDS: OFLOXACIN 0.3% 75 DROPS/5 ML BTL OPR SCH ×4 (08:20→20:38)
[2022-02-27] MEDS: ENOXAPARIN INJ 40 MG/0.4 ML SYR SQ SCH ×2 (08:21→20:37)
[2022-02-27] MEDS: INSULIN ASPART PER UNIT SC SCH ×3 (08:51→17:22)
[2022-02-27] MEDS: AZITHROMYCIN 500 MG in DEXTROSE 5% 250 ML IV SCH (08:51)
[2022-02-27] MEDS: cefTRIAXone SODIUM 2,000 MG in DEXTROSE 5% 50 ML IV SCH (08:51)
--- NOTE | 2022-02-27 13:53 | Pharmacy Report ---
Pharmacy Glycemic Short Note 2 - Date of Service February 27, 2022 - Glycemic Short BSG Results (Last 24 hours): 02/26/22 02/26/22 02/26/22 17:07 20:32 20:35 Glucose POC Glucose 236 H 317 H* 350 H* 02/27/22 02/27/22 02/27/22 02:03 05:49 07:56 Glucose 144 H POC Glucose 117 H 132 H 02/27/22 11:35 Glucose POC Glucose 253 H OUTPATIENT ANTIDIABETIC REGIMEN: * Omnipod * Basal: TD 55.75 * CR: 1:3 * CF: 1:8 * A1c 6.3% ASSESSMENT: * Patient admitted with pneumonia, initially hypoglycemic and turned off pump, patient did not have additional supplies and transitioned to basal/bolus * On prednisone 10 mg daily x 3 more days, BSGs slightly increased * Per hospitalist would like to transition back to insulin pump, patient's to bring in supplies this evening. Patient is due for lantus ~1830 and would preferably restart at that time if available * If unable to restart- will continue with parameters below PLAN FOR INPATIENT GLYCEMIC CONTROL: * Hold outpatient oral diabetes medications * Basal insulin * Lantus 50 units @ 1630 * Bolus insulin * NovoLog per scale ACHS or Q6hrs while NPO * Goal Range: Low 110 mg/dL - High 140 mg/dL * Correction Factor: 15 mg/dL/unit * Nutritional / Prandial insulin per carb ratio of 1 unit per 4 grams CHO consumed
--- NOTE | 2022-02-27 14:26 | Electrocardiogram Report ---
Test Reason : Blood Pressure : / mmHG Vent. Rate : 065 BPM Atrial Rate : 065 BPM P-R Int : 184 ms QRS Dur : 094 ms QT Int : 444 ms P-R-T Axes : 050 041 030 degrees QTc Int : 461 ms Normal sinus rhythm Normal ECG When compared with ECG of 26-FEB-2022 07:51, Nonspecific T wave abnormality no longer evident in Lateral leads Confirmed by Shin Casillas ([id number]) on 02/27/2022 2:25:35 PM Referred By: REFERRED SELF Confirmed By:Shin Casillas
--- NOTE | 2022-02-27 15:17 | Hospitalist Progress Note ---
Date of Service February 27, 2022 Assessment & Plan (1) Pneumonia: (2) Atrial fibrillation with RVR: (3) Hypomagnesemia: (4) KRISTIN (acute kidney injury): (5) Alcohol dependence: Plan 66-year-old male with PMH of T1DM on insulin pump/CGM, CAD, chronic HFpEF, HTN, HLD, CHANTELL on CPAP, ascending aortic dilatation, asthma, GERD, BPH, seizure disorder, MGUS and alcohol dependence [1 pint of bourbon daily] presented to the ED 02/26 with hypoglycemia and hypoxia. In the ED he was found to be tachycardic with initial EKG showing A. fib with RVR with heart rate in 120s. Patient does have chronic dyspnea with minimal exertion but it was worse the night prior to arrival, even with rest. Patient has been vaccinated and boosted x2 for COVID. Of note, patient had developed PAF in the setting of electrolyte abnormality/DKA when he was hospitalized in 2016. He is being managed for the following: Pneumonia: Found by EMS to be hypoxic requiring 5 L of oxygen, in the ED found to have pneumonia on CXR. At presentation patient had productive cough but cannot comment on color. Continue with Rocephin 02/26 and azithromycin 02/26. Patient on room air and reports improving cough. Repeat CXR in 1 to 2 months to ensure resolution. Atrial fibrillation with RVR: Transient, in the setting of acute illness, converted to NSR in ED with diltiazem. History of similar event previously with electrolyte abnormalities in 2016. Continue telemetry monitoring. Follow-up EKG with NSR. 02/27 echo with EF of 50 to 55%, grade 1 diastolic dysfunction. Monitor and replete electrolytes as appropriate. Continue home beta-fer. Elevated troponin: Troponin elevated at presentation, likely demand ischemia due to atrial fibrillation with RVR and pneumonia. Echo done and reviewed. EKG without acute ST or T changes, patient with no chest pain. Acute kidney injury: Creatinine 1.46 at admission, resolved. Alcohol dependence: Patient drinks 1 pint of bourbon daily, TREY S protocol, thiamine/folic acid, patient counseled against drinking alcohol, patient not interested. T1DM: On insulin pump and CGM as outpatient, hypoglycemic episode x2 in the last 24 hours prior to arrival. A1c 02/16/2022 was 6.3. Glycemic pharmacy on board, appreciate recommendation. Other chronic medical conditions: COPD/CAD/GERD/BPH/aortic root enlargement [stable on last echo] -->> continue with/resume home meds as and when appropriate. Home gabapentin on hold during inpatient gabapentin protocol. DVT Prophylaxis: Lovenox Code Status: Full code Admission and Anticipated Discharge Date Admission Date: February 26, 2022 Subjective Patient seen and examined at bedside as a follow-up of pneumonia, A. fib with RVR, elevated troponin, KRISTIN, alcohol dependence and electrolyte abnormalities. Patient was sitting up in bed, on room air, NAD, denies new acute events overnight, reports eating okay and moving bowels okay, reports cough getting better, does not know the color of the sputum he makes with a cough, reports drinking 1 pint of bourbon daily, counseled against drinking in future, patient states that he has not thought about quitting, denies headache/dizziness/chest pain/palpitations/belly pain/other review of symptoms. Physical Exam Physical Exam: GENERAL: Alert and oriented x3. NAD, on RA. HEENT: No pallor, no icterus. Pupils equal, round and reactive to light x Lt. Oral mucosa moist. Rt eye blind NECK: No JVD, no neck masses. HEART: S1 and S2 heard. Regular rate and rhythm. No murmur, no gallop. RESPIRATORY SYSTEM: Normal AP diameter. No accessory muscle use. No wheezing, bibasal crackles. ABDOMEN: Soft, bowel sounds present, nontender, no distention. CENTRAL NERVOUS SYSTEM: No facial droop. Speech is clear. Obeys simple commands. Moves extremities. EXTREMITIES: RLE trace pitting edema, LLE w/ no edema, lower extremity chronic skin changes noted. Bilateral hand with multiple amputated fingers. Results & Data Results & Data ([facility]) Vital Signs (Past 12 Hours) Vital Signs Temp Pulse Resp BP Pulse Ox O2 Del Method O2 Flow Rate 02/27/22 11:21 36.9 C 73 18 142/88 H 96 Room Air 02/27/22 08:00 Nasal Cannula 2 02/27/22 07:40 36.7 C 67 18 168/91 H 93 Nasal Cannula 1 02/27/22 04:01 36.3 C L 63 18 125/78 97 Nasal Cannula 1.0
[2022-02-27] MEDS: CARBOHYDRATES FOR HYPOGLYCEMIA PO PRN ×3 (16:52→17:30)
[2022-02-27] MEDS: NovoLOG INSULIN PUMP SCH (21:02)
[2022-02-28] MEDS: LEVOTHYROXINE SODIUM 125 MCG TABLET PO SCH (05:06)
[2022-02-28 05:48] LABS: Basophils # (auto) 0.04 K/uL (0-0.2); Basophils % (auto) 0.3 %; Eosinophils # (auto) 0.18 K/uL (0-0.50); Eosinophils % (auto) 1.3 %; Hematocrit (blood only) 32.8 % (40.1-51.0); Hemoglobin 10.6 g/dl (14.0-18.0); Immature Granulocytes # (auto) 0.07 K/uL (0.00-0.02); Immature Granulocytes % (auto) 0.5 %; Lymphocytes # (auto) 1.54 K/uL (1.2-3.4); Lymphocytes % (auto) 11.1 %; Mean Corpuscular Hemoglobin 31.9 pg (25.0-34.0); Mean Corpuscular Hgb Conc 32.3 g/dL (32.0-36.0); Mean Corpuscular Volume 98.8 fL (80.0-100.0); Mean Platelet Volume 10.3 fL (9.4-12.4); Monocytes # (auto) 0.75 K/uL (0.24-0.82); Monocytes % (auto) 5.4 %; Neutrophils % (auto) 81.4 %; Platelet Count 182 K/uL (130-400); RDW Coefficient of Variation 19.2 % (11.5-14.5); RDW Standard Deviation 70.2 fL (36.4-46.3); Red Blood Count 3.32 M/uL (4.63-6.08); White Blood Count 13.88 K/ul (4.8-10.8)
[2022-02-28] MEDS: prednisoLONE acetate 1% OP SUSP 5 ML BTL OPR SCH ×6 (06:32→21:38)
[2022-02-28 06:42] LABS: BUN Creatinine Ratio 18.5 (10-20); Calcium 8.6 mg/dl (8.5-10.1); Creatinine Clr Calc Pharmacy 93.9 ml/min; Est GFR (African American) 83.6 ml/min; Est GFR (Non-African American) 72.2 ml/min; Magnesium 2.1 mg/dl (1.7-2.4); Phosphorus 2.7 mg/dl (2.5-4.9); Potassium 3.9 mmol/L (3.5-5.1)
[2022-02-28] MEDS: CARBOHYDRATES FOR HYPOGLYCEMIA PO PRN ×5 (06:48→13:32)
[2022-02-28] MEDS: NovoLOG INSULIN PUMP SCH ×4 (08:34→20:27)
[2022-02-28] MEDS: amLODIPine BESYLATE 5 MG TAB PO SCH (08:37)
[2022-02-28] MEDS: predniSONE 10 MG TABLET PO SCH (08:37)
[2022-02-28] MEDS: ASPIRIN 81 MG ECTAB PO SCH (08:38)
[2022-02-28] MEDS: CLOPIDOGREL BISULFATE 75 MG TAB PO SCH (08:38)
[2022-02-28] MEDS: THIAMINE HCL 100 MG TAB PO SCH (08:38)
[2022-02-28] MEDS: FOLIC ACID 1 MG TAB PO SCH (08:38)
[2022-02-28] MEDS: POTASSIUM CHLORIDE CRTAB 20 MEQ TABCR PO SCH (08:38)
[2022-02-28] MEDS: PANTOprazole 40 MG TAB PO SCH (08:38)
[2022-02-28] MEDS: LOSARTAN POTASSIUM 50 MG TAB PO SCH ×2 (08:38→20:26)
[2022-02-28] MEDS: DOCUSATE SODIUM/SENNA 50/8.6MG TAB PO SCH (08:38)
[2022-02-28] MEDS: VENLAFAXINE HCL XR 75 MG CAPXR PO SCH (08:38)
[2022-02-28] MEDS: METOPROLOL SUCC 25MG EXT REL TAB PO SCH (08:39)
[2022-02-28] MEDS: FINASTERIDE 5 MG TAB PO SCH (08:39)
[2022-02-28] MEDS: TAMSULOSIN HCL 0.4 MG CAP PO SCH (08:39)
[2022-02-28] MEDS: ENOXAPARIN INJ 40 MG/0.4 ML SYR SQ SCH ×2 (08:39→20:26)
[2022-02-28] MEDS: ATORVASTATIN 40 MG TAB PO SCH (08:39)
[2022-02-28] MEDS: MULTIVITAMIN TAB PO SCH (08:39)
[2022-02-28] MEDS: OFLOXACIN 0.3% 75 DROPS/5 ML BTL OPR SCH ×4 (08:40→20:26)
[2022-02-28] MEDS: OFLOXACIN 0.3% 75 DROPS/5 ML BTL OTL SCH ×2 (08:40→20:26)
[2022-02-28] MEDS: ATROPINE SULFATE 1% OP SOLN 5 ML BTL OPR SCH ×2 (08:40→20:27)
[2022-02-28] MEDS: cefTRIAXone SODIUM 2,000 MG in DEXTROSE 5% 50 ML IV SCH (08:50)
[2022-02-28] MEDS: AZITHROMYCIN 500 MG in DEXTROSE 5% 250 ML IV SCH (08:50)
[2022-02-28] MEDS: GABAPENTIN 600 MG TAB PO SCH ×2 (12:31→23:46)
--- NOTE | 2022-02-28 16:17 | Hospitalist Progress Note ---
Date of Service February 28, 2022 Assessment & Plan (1) Pneumonia: (2) Atrial fibrillation with RVR: (3) Hypomagnesemia: (4) KRISTIN (acute kidney injury): (5) Alcohol dependence: Plan 66-year-old male with PMH of T1DM on insulin pump/CGM, CAD, chronic HFpEF, HTN, HLD, CHANTELL on CPAP, ascending aortic dilatation, asthma, GERD, BPH, seizure disorder, MGUS and alcohol dependence [1 pint of bourbon daily] presented to the ED 02/26 with hypoglycemia and hypoxia. In the ED he was found to be tachycardic with initial EKG showing A. fib with RVR with heart rate in 120s. Patient does have chronic dyspnea with minimal exertion but it was worse the night prior to arrival, even with rest. Patient has been vaccinated and boosted x2 for COVID. Of note, patient had developed PAF in the setting of electrolyte abnormality/DKA when he was hospitalized in 2016. He is being managed for the following: Pneumonia: Found by EMS to be hypoxic requiring 5 L of oxygen, in the ED found to have pneumonia on CXR. At presentation patient had productive cough but cannot comment on color. Continue with Rocephin 02/26 and azithromycin 02/26. Patient on room air and reports improving cough. Repeat CXR in 1 to 2 months to ensure resolution. Patient has been afebrile, admitting blood culture no growth so far. Atrial fibrillation with RVR: Transient, in the setting of acute illness, converted to NSR in ED with diltiazem. History of similar event previously with electrolyte abnormalities in 2016. Continue telemetry monitoring. Follow-up EKG with NSR. 02/27 echo with EF of 50 to 55%, grade 1 diastolic dysfunction. Monitor and replete electrolytes as appropriate. Continue home beta-fer. Elevated troponin: Troponin elevated at presentation, likely demand ischemia due to atrial fibrillation with RVR and pneumonia. Echo done and reviewed. EKG without acute ST or T changes, patient with no chest pain. Acute kidney injury: Creatinine 1.46 at admission, resolved. Alcohol dependence: Patient drinks 1 pint of bourbon daily, TREY S protocol, thiamine/folic acid, patient counseled against drinking alcohol, patient not interested. T1DM: On insulin pump and CGM as outpatient, hypoglycemic episode x2 in the last 24 hours prior to arrival. A1c 02/16/2022 was 6.3. Glycemic pharmacy on board, appreciate recommendation. Will DC with discharge recommendation from glycemic pharmacy. Other chronic medical conditions: COPD/CAD/GERD/BPH/aortic root enlargement [stable on last echo] -->> continue with/resume home meds as and when appropriate. Home gabapentin on hold during inpatient gabapentin protocol. DVT Prophylaxis: Lovenox Code Status: Full code Disposition: PT/OT, CM to assist with DC planning. Admission and Anticipated Discharge Date Admission Date: February 26, 2022 Subjective Patient seen and examined at bedside as a follow-up of pneumonia, A. fib with RVR, elevated troponin, KRISTIN, alcohol dependence and electrolyte abnormalities. Patient was lying in bed, on room air, NAD, denies new acute events overnight, reports eating okay and moving bowels okay, reports cough getting better, reports drinking 1 pint of bourbon daily, counseled against drinking in future, patient states that he has not thought about quitting, denies headache/dizziness/chest pain/palpitations/belly pain/other review of symptoms. Reports feeling better. Physical Exam Physical Exam: GENERAL: Alert and oriented x3. NAD, on RA. HEENT: No pallor, no icterus. Pupils equal, round and reactive to light x Lt. Oral mucosa moist. Rt eye blind NECK: No JVD, no neck masses. HEART: S1 and S2 heard. Regular rate and rhythm. No murmur, no gallop. RESPIRATORY SYSTEM: Normal AP diameter. No accessory muscle use. No wheezing, bibasal crackles. ABDOMEN: Soft, bowel sounds present, nontender, no distention. CENTRAL NERVOUS SYSTEM: No facial droop. Speech is clear. Obeys simple commands. Moves extremities. EXTREMITIES: RLE trace pitting edema, LLE w/ no edema, lower extremity chronic skin changes noted. Bilateral hand with multiple amputated fingers. Results & Data Results & Data ([facility]) Vital Signs (Past 12 Hours) Vital Signs Temp Pulse Pulse Resp BP Pulse Ox O2 Del Method 02/28/22 12:09 36.4 C L 72 22 151/98 H 95 Room Air 02/28/22 08:00 68 02/28/22 08:00 Room Air 02/28/22 07:23 36.5 C 72 22 158/90 H 95 Room Air
[2022-03-01] MEDS: NovoLOG INSULIN PUMP SCH ×4 (00:40→12:38)
[2022-03-01] MEDS: LEVOTHYROXINE SODIUM 125 MCG TABLET PO SCH (05:50)
[2022-03-01] MEDS: prednisoLONE acetate 1% OP SUSP 5 ML BTL OPR SCH ×3 (06:20→13:00)
[2022-03-01 06:32] LABS: Basophils # (auto) 0.06 K/uL (0-0.2); Basophils % (auto) 0.7 %; Eosinophils # (auto) 0.25 K/uL (0-0.50); Eosinophils % (auto) 2.8 %; Immature Granulocytes % (auto) 1.1 %; Lymphocytes # (auto) 1.26 K/uL (1.2-3.4); Lymphocytes % (auto) 13.9 %; Mean Corpuscular Hemoglobin 32.1 pg (25.0-34.0); Mean Corpuscular Hgb Conc 32.4 g/dL (32.0-36.0); Mean Corpuscular Volume 99.1 fL (80.0-100.0); Mean Platelet Volume 10.2 fL (9.4-12.4); Monocytes # (auto) 0.78 K/uL (0.24-0.82); Monocytes % (auto) 8.6 %; Neutrophils # (auto) 6.63 K/uL (1.4-6.5); Neutrophils % (auto) 72.9 %; Platelet Count 189 K/uL (130-400); RDW Coefficient of Variation 18.7 % (11.5-14.5); RDW Standard Deviation 68.5 fL (36.4-46.3); Red Blood Count 3.43 M/uL (4.63-6.08); White Blood Count 9.08 K/ul (4.8-10.8)
[2022-03-01 07:15] LABS: Calcium 8.6 mg/dl (8.5-10.1); Creatinine Clr Calc Pharmacy 93.4 ml/min; Est GFR (African American) 84.6 ml/min
[2022-03-01] MEDS: AZITHROMYCIN 500 MG in DEXTROSE 5% 250 ML IV SCH (09:07)
[2022-03-01] MEDS: cefTRIAXone SODIUM 2,000 MG in DEXTROSE 5% 50 ML IV SCH (09:07)
[2022-03-01] MEDS: LOSARTAN POTASSIUM 50 MG TAB PO SCH (09:07)
[2022-03-01] MEDS: ATORVASTATIN 40 MG TAB PO SCH (09:07)
[2022-03-01] MEDS: predniSONE 10 MG TABLET PO SCH (09:08)
[2022-03-01] MEDS: CLOPIDOGREL BISULFATE 75 MG TAB PO SCH (09:08)
[2022-03-01] MEDS: VENLAFAXINE HCL XR 75 MG CAPXR PO SCH (09:08)
[2022-03-01] MEDS: FOLIC ACID 1 MG TAB PO SCH (09:08)
[2022-03-01] MEDS: POTASSIUM CHLORIDE CRTAB 20 MEQ TABCR PO SCH (09:08)
[2022-03-01] MEDS: amLODIPine BESYLATE 5 MG TAB PO SCH (09:08)
[2022-03-01] MEDS: DOCUSATE SODIUM/SENNA 50/8.6MG TAB PO SCH (09:08)
[2022-03-01] MEDS: MULTIVITAMIN TAB PO SCH (09:08)
[2022-03-01] MEDS: METOPROLOL SUCC 25MG EXT REL TAB PO SCH (09:08)
[2022-03-01] MEDS: TAMSULOSIN HCL 0.4 MG CAP PO SCH (09:08)
[2022-03-01] MEDS: FINASTERIDE 5 MG TAB PO SCH (09:09)
[2022-03-01] MEDS: THIAMINE HCL 100 MG TAB PO SCH (09:09)
[2022-03-01] MEDS: ASPIRIN 81 MG ECTAB PO SCH (09:09)
[2022-03-01] MEDS: ENOXAPARIN INJ 40 MG/0.4 ML SYR SQ SCH (09:09)
[2022-03-01] MEDS: PANTOprazole 40 MG TAB PO SCH (09:09)
[2022-03-01] MEDS: OFLOXACIN 0.3% 75 DROPS/5 ML BTL OTL SCH (09:10)
[2022-03-01] MEDS: ATROPINE SULFATE 1% OP SOLN 5 ML BTL OPR SCH (09:10)
[2022-03-01] MEDS: OFLOXACIN 0.3% 75 DROPS/5 ML BTL OPR SCH ×2 (09:10→13:00)
--- NOTE | 2022-03-01 12:48 | Discharge Summary ---
Discharge Summary Date of Service March 01, 2022 Notes For Next Care Provider Patient was found to have pneumonia, will complete antibiotic with cefdinir and azithromycin as an outpatient. Patient also had hypoglycemic events at home, insulin rate decrease by 25% has been recommended to the patient. Patient is on insulin pump. Patient will need close follow-up with his either diabetic clinic or dewer to adjust his insulin pump. He will likely need blood tests CBC/CMP/Mg level in a week time. He will need CXR in a month time to document resolution of his pneumonia. Medication Changes From Visit You will need to decrease your insulin rate by 25%. You are discharged on 2 antibiotic azithromycin and cefdinir for few days. Admission HPI Per Admitting Provider This is a 66-year-old male with a PMH of Type 1 DM on an insulin pump/CGM, CAD, chronic HFpEF, HTN, dyslipidemia, CHANTELL on CPAP, ascending aortic dilatation, asthma, GERD, BPH, seizure disorder, MGUS, and other history as listed below who presented to the ED today with hypoglycemia and hypoxia. Last night, his came home and found pt unresponsive - he found to be hypoglycemic but was not alert enough to take oral glucose so family called EMS who came and evaluated pt, gave unknown treatment, and sugar stabilized so pt was not transport. Around 4 am today, similar thing happened with decreased responsiveness with hypoglycemia and EMS was again called but this time was transported for evaluation after hypoxia noted in the field. He was also found to be tachyc ardiac with initial EKG showing atrial fibrillation with RVR with HR in 120s. Pt denies feeling ill or anything unusual prior to the events of last night. He notes chronic dyspnea with minimal exertion. Breathing was worse last night, even at rest, and again this morning. Currently, breathing feels back to baseline in the ED. He is having some drainage/congestion in throat that he feels like he cannot clear - thinks that his cough is related to this as he is not having significant chest congestion. No wheezing. Started with chills around 2 am today. Did not check temp at the time. +diarrhea but no N/V - started early this morning as well. Denies prior hx pneumonia that he can recall. No recent sick contacts. Denies chest pain, palpitations, HARDEN, dizziness. No dysuria or hematuria. No recent change in ongoing blurry vision. Has a CGM and an insulin pump (currently suspended). Has been vaccinated and boosted x 2 for COVID. His outpatient records were extensively reviewed - in 2016, pt was apparently hospitalized for DKA. During this admission he developed PAF in the setting of electrolyte disturbances. He was also noted to have alcohol withdrawal during this admission. Pt reports currently drinking approximately one pint of liquor daily. ECHO 08/11/21 - mildly increased LV wall thickness (concentric), small sized basal inferior and posterior wall motion abnormality with hypokinesis of the segments; mild secondary MR, aortic root moderately enlarged at 4.4 cm, proximal ascending thoracic aorta is mildly enlarged at 4.0 cm. Compared to Mar 06, 2020 - no si gnificant change. Admission Exam Per Admitting Provider Constitutional: well developed and well nourished; no acute distress Eyes: + anicteric sclerae ENMT: external ear and nose normal, oropharynx normal Neck: trachea midline Respiratory: no respiratory distress Auscultation: + diminished lung sounds; no rales and no rhonchi Cardiovascular: Rate/Rhythm: regular rate and regular rhythm Extremities: + edema (1+ pitting pretibial) Gastrointestinal (Abdomen): Inspection/Auscultation: normal bowel sounds; abdomen not distended Percussion/Palpation: abdomen soft; abdomen nontender Musculoskeletal: Head/Neck/Chest: normocephalic, head atraumatic and neck palma pple multiple finger amputations Skin: no jaundice Neurologic: moves all extremities; not confused Psychiatric: A+Ox3, euthymic affect Principal Dx & Hospital Course #1 = Principal Diagnosis (1) Pneumonia: (2) Atrial fibrillation with RVR: (3) Hypomagnesemia: (4) KRISTIN (acute kidney injury): (5) Alcohol dependence: Plan 66-year-old male with PMH of T1DM on insulin pump/CGM, CAD, chronic HFpEF, HTN, HLD, CHANTELL on CPAP, ascending aortic dilatation, asthma, GERD, BPH, seizure disorder, MGUS and alcohol dependence [1 pint of bourbon daily] presented to the ED 02/26 with hypoglycemia and hypoxia. In the ED he was found to be tachycardic with initial EKG showing A. fib with RVR with heart rate in 120s. Patient does have chronic dyspnea with minimal exertion but it was worse the night prior to arrival, even with rest. Patient has been vaccinated and boosted x2 for COVID. Of note, patient had developed PAF in the setting of electrolyte abnormality/DKA when he was hospitalized in 2016. He was managed for the following: Pneumonia: Found by EMS to be hypoxic requiring 5 L of oxygen, in the ED found to have pneumonia on CXR. At presentation patient had productive cough but cannot comment on color. Continue with Rocephin 02/26 and azithromycin 02/26. Patient on room air and reports improving cough. Repeat CXR in 1 to 2 months to ensure resolution. Patient has been afebrile, admitting blood culture no growth so far. Patient will be changed on p.o. antibiotic prior to discharge, patient to complete antibiotic course. Atrial fibrillation with RVR: Transient, in the setting of acute illness, converted to NSR in ED with diltiazem. History of similar event previously with electrolyte abnormalities in 2016. Continue telemetry monitoring. Follow-up EKG with NSR. 02/27 echo with EF of 50 to 55%, grade 1 diastolic dysfunction. Monitor and replete electrolytes as appropriate. Continue home beta-fer. No A. fib event while in hospital upon telemetry review. Elevated troponin: Troponin elevated at presentation, likely demand ischemia due to atrial fibrillation with RVR and pneumonia. Echo done and reviewed. EKG without acute ST or T changes, patient with no chest pain. Acute kidney injury: Creatinine 1.46 at admission, resolved. Alcohol dependence: Patient drinks 1 pint of bourbon daily, TREY S protocol, thiamine/folic acid, patient counseled against drinking alcohol, patient not i nterested. T1DM: On insulin pump and CGM as outpatient, hypoglycemic episode x2 in the last 24 hours prior to arrival. A1c 02/16/2022 was 6.3. Glycemic pharmacy on board, appreciate recommendation. With recommendation from glycemic pharmacy, patient has been advised to decrease the rate of his insulin by 25% and patient to see his diabetic clinic as soon as possible preferably within 2 to 3 days upon discharge, patient made aware. Patient to keep crackers/oranges by his side to avoid glycemic events. Other chronic medical conditions: COPD/CAD/GERD/BPH/aortic root enlargement [stable on last echo] -->> continue with/resume home meds as and when appropriate. Code Status: Full code Tried to call Pt's number x2 in the system, went to some insurance company. Patient being discharged home with following instruction at the point of discharge: Follow-up with your primary care physician in 3 to 5 days upon discharge and with your diabetic clinic in 3 days upon discharge. This is very important. You will likely need blood test CBC/CMP/magnesium level from your primary care office. For your pneumonia, you will be discharged on antibiotic, complete the course. You will need a repeat chest x-ray in 1 to 2 months to ensure resolution of your pneumonia. For your diabetes, you will need to follow-up with your diabetic clinic as soon as possible to adjust your insulin pump. You will need to decrease the rate of your insulin by 25% until you see your diabetic clinic. Make sure to have crackers/orange juices nearby to avoid hypoglycemic events. Take your medications as prescribed. Discharge Exam GENERAL: Alert and oriented x3. NAD, on RA. HEENT: No pallor, no icterus. Pupils equal, round and reactive to light x Lt. Oral mucosa moist. Rt eye blind NECK: No JVD, no neck masses. HEART: S1 and S2 heard. Regular rate and rhythm. No murmur, no gallop. RESPIRATORY SYSTEM: Normal AP diameter. No accessory muscle use. No wheezing, bibasal crackles. ABDOMEN: Soft, bowel sounds present, nontender, no distention. CENTRAL NERVOUS SYSTEM: No facial droop. Speech is clear. Obeys simple commands. Moves extremities. EXTREMITIES: RLE trace pitting edema, LLE w/ no edema, lower extremity chronic skin changes noted. Bilateral hand with multiple amputated fingers. Updated Medication List Medication Instructions Recorded Confirmed Type clopidogrel 75 mg tablet (Plavix) 75 mg PO QAM 02/04/18 02/26/22 History finasteride 5 mg tablet 5 mg PO QAM 02/04/18 02/26/22 History folic acid 1 mg tablet 1 mg PO QAM 02/04/18 02/26/22 History levothyroxine 125 mcg tablet 125 mcg PO QAM 02/04/18 02/26/22 History tamsulosin 0.4 mg capsule (Flomax) 0.4 mg PO DAILY 02/04/18 02/26/22 History losartan 50 mg tablet 50 mg PO BID 05/13/18 02/26/22 History atorvastatin 40 mg tablet 40 mg PO QAM 04/14/20 02/26/22 History furosemide 40 mg tablet 40 mg PO QAM 04/14/20 02/26/22 History metoprolol succinate 25 mg 25 mg PO QAM 04/14/20 02/26/22 History tablet,extended release 24 hr omeprazole 20 mg capsule,delayed 20 mg PO QAM 04/14/20 02/26/22 History release sennosides 8.6 mg-docusate sodium 1 tab-cap PO QAM 04/14/20 02/26/22 History 50 mg tablet (Senokot-S) amlodipine 5 mg tablet 5 mg PO QAM 07/12/20 02/26/22 History insulin aspart U-100 100 unit/mL 2 unit subcut CONTINOUS 07/12/20 02/26/22 History subcutaneous solution aspirin 81 mg tablet,delayed 81 mg PO QAM 03/13/21 02/26/22 History release gabapentin 300 mg capsule 300 mg PO BID 03/13/21 02/26/22 History potassium chloride 20 mEq 20 meq PO QAM 08/12/21 02/26/22 History tablet,extended release multivitamin 1 tab PO QAM 11/11/21 02/26/22 History atropine 1 % eye drops 1 drp OPR BID 02/26/22 02/26/22 History ofloxacin 0.3 % ear drops 4 drp OTL BID 02/26/22 02/26/22 History ofloxacin 0.3 % eye drops 1 drp ophthalmic (eye) QID 02/26/22 02/26/22 History prednisolone acetate 1 % eye 1 drp OPR 6XD 02/26/22 02/26/22 History drops,suspension prednisone 20 mg tablet See Rx Instructions .Route .COMPLEX 02/26/22 02/26/22 History venlafaxine 75 mg capsule,extended 75 mg PO DAILY 02/26/22 02/26/22 History release 24 hr azithromycin 250 mg tablet 250 mg PO DAILY 2 days #2 tabs 03/01/22 Rx cefdinir 300 mg capsule 300 mg PO BID 5 days #10 caps 03/01/22 Rx Hospital Stay Data Consultations 02/26/22 08:05 ED Decision to Admit Stat Pending Results Patient Have Any Pending Studies at Discharge: Yes (Admitting blood culture final results.) Discharge Instructions Given to Patient (Per Discharging Provider) Follow-up with your primary care physician in 3 to 5 days upon discharge and with your diabetic clinic in 3 days upon discharge. This is very important. You will likely need blood test CBC/CMP/magnesium level from your primary care office. For your pneumonia, you will be discharged on antibiotic, complete the course. You will need a repeat chest x-ray in 1 to 2 months to ensure resolution of your pneumonia. For your diabetes, you will need to follow-up with your diabetic clinic as soon as possible to adjust your insulin pump. You will need to decrease the rate of your insulin by 25% until you see your diabetic clinic. Make sure to have crackers/orange juices nearby to avoid hypoglycemic events. Take your medications as prescribed. Total Time Total Time Spent Total Time Spent (In Minutes): 40
[2022-03-02] MEDS ORDERED: GABAPENTIN 600 MG TAB PO SCH (00:15)
== END 2022-03-01 14:30 | disposition home or self-care (01) | DRG 194 ==
LOC: ED 05:29 → SUATTDRO 08:50 → 4W 08:50

== ENCOUNTER 2024-08-04 05:23 | Observation (INO) ==
--- NOTE | 2024-07-06 13:03 | PAT Medication Instructions ---
Medication Instructions Date of Service July 06, 2024 Home Medications clopidogrel 75 mg tablet (Plavix) 75 mg PO QAM finasteride 5 mg tablet 5 mg PO QAM folic acid 1 mg tablet 1 mg PO QAM levothyroxine 125 mcg tablet 125 mcg PO QAM tamsulosin 0.4 mg capsule (Flomax) 0.4 mg PO HS losartan 50 mg tablet 50 mg PO BID atorvastatin 40 mg tablet 40 mg PO QAM metoprolol succinate 25 mg tablet,extended release 24 hr 25 mg PO QAM omeprazole 20 mg capsule,delayed release 20 mg PO QAM amlodipine 5 mg tablet 5 mg PO QAM insulin aspart U-100 100 unit/mL subcutaneous solution 0 unit subcut CONTINOUS aspirin 81 mg tablet,delayed release 81 mg PO QAM gabapentin 300 mg capsule 300 mg PO BID potassium chloride 20 mEq tablet,extended release 20 meq PO QAM multivitamin 1 tab PO QAM atropine 1 % eye drops 1 drp OPL DAILY furosemide 40 mg tablet 40 mg PO .QAM UD nitroglycerin 0.4 mg sublingual tablet 0.4 mg sublingual DIRECTED PRN Chest Pain venlafaxine 150 mg capsule,extended release 24 hr 150 mg PO QAM coQ10 (ubiquinol) 100 mg capsule (Qunol Vitor CoQ10) 0 mg PO UD mv-mn-folic 200 mcg-vit K 15 mcg-lutein 5 mg-zeaxanthin 1 mg capsule (PreserVision AREDS 2 Plus Multivit) 1 cap PO DAILY Continue as directed nitroglycerin 0.4 mg sublingual tablet 0.4 mg sublingual DIRECTED PRN Chest Pain (if needed) ASK your prescriber and surgeon clopidogrel 75 mg tablet (Plavix) 75 mg PO QAM (From anesthesia perspective, clopidogrel/Plavix needs to be stopped 7 days before surgery. Please check if okay with doctor that prescribes this to you) aspirin 81 mg tablet,delayed release 81 mg PO QAM STOP taking 2 weeks before surgery (or as soon as possible if surgery is within 2 weeks) coQ10 (ubiquinol) 100 mg capsule (Qunol Vitor CoQ10) 0 mg PO UD mv-mn-folic 200 mcg-vit K 15 mcg-lutein 5 mg-zeaxanthin 1 mg capsule (PreserVision AREDS 2 Plus Multivit) 1 cap PO DAILY DO NOT take the morning of surgery folic acid 1 mg tablet 1 mg PO QAM losartan 50 mg tablet 50 mg PO BID potassium chloride 20 mEq tablet,extended release 20 meq PO QAM multivitamin 1 tab PO QAM furosemide 40 mg tablet 40 mg PO .QAM UD Take morning of surgery With a small sip of water, OTHERWISE NOTHING TO EAT OR DRINK AFTER MIDNIGHT: finasteride 5 mg tablet 5 mg PO QAM levothyroxine 125 mcg tablet 125 mcg PO QAM atorvastatin 40 mg tablet 40 mg PO QAM metoprolol succinate 25 mg tablet,extended release 24 hr 25 mg PO QAM omeprazole 20 mg capsule,delayed release 20 mg PO QAM amlodipine 5 mg tablet 5 mg PO QAM gabapentin 300 mg capsule 300 mg PO BID atropine 1 % eye drops 1 drp OPL DAILY venlafaxine 150 mg capsule,extended release 24 hr 150 mg PO QAM Take evening before surgery tamsulosin 0.4 mg capsule (Flomax) 0.4 mg PO HS losartan 50 mg tablet 50 mg PO BID gabapentin 300 mg capsule 300 mg PO BID Insulin Dependent Diabetic Patients For insulin pump, recommend to keep on basal setting morning of surgery and do not bolus (unless instructed otherwise by prescriber) Other Notes If you have any questions please call us at [phone] or [phone] or [phone] or [phone]
--- NOTE | 2024-07-11 11:31 | Anesthesiology Consultation ---
Date of Service July 11, 2024 Assessment & Plan (1) Encounter for pre-operative examination: Plan - awaiting echocardiogram 07/20 and ultimate [facility] cardiology pre-op determination. - check BSG am DOS. - fingerstick glucose 133 (patient did not have dexcom equipment for read with him today). He states was feeling slightly lightheaded, reports only had a non- alcoholic beer this morning, has not eaten anything). He was given an orange juice and packets of saltines after this was relayed by paralegal legal secretary. Fingerstick glucose was obtained after he had saltines and finished orange juice-he reports improvement. He was provided with additional crackers/juice, his is with patient and will be driving him home-states they will eat lunch when they are home. - cardiology office visit 06/29/24 [facility]: "...CAD S/P NSTEMI in setting of DKA. Cardiac catheterization on 08/10/15 demonstrating 50-60% serial mid RCA lesion, with distal RPLB lesion thought to be culprit and (distal lesion not amenable to revascularization), 30% mid LAD lesion. Medication management recommended. Paroxysmal AFIB in setting of alcohol withdrawal. No known recurrence. [id number] VASc 5 (age, CHF, HTN, CAD, DM)...Chronic HFpEF, NYHA Class III. Aortic root (4. 4 cm) and ascending aorta enlargement (4.0 cm). COPD...Chronic alcohol abuse...Seizure disorder. Venous insufficiency with multiple vascular interventions...Osteomyelitis of the hand with multiple B/L finger amputations...scheduled for left hip replacement on 08/04/[address] Mccann at [facility] [place]...ongoing dyspnea on exertion with walking short distances and day-to-day activities such as getting dressed and showering. He states that he could walk up 1-2 flights of stairs but would need to take several breaks due to shortness of breath...Prior nuclear stress test (09/07/22) showed fixed inferior perfusion defect consistent with old myocardial scar and no evidence of inducible ischemia-Cardiac risk determination will be made pending ECHO results given ongoing dyspnea on exertion and history of chronic HFpEF..." - Case discussed in detail and Dr. Torres advised nothing additional is needed other than awaiting echocardiogram results and ultimate cardiology pre-operative determination. - Outpatient joint assessment: Patient is currently scheduled for inpatient pathway. If re-evaluated and patient/surgeon requests outpatient pathway, patient is not a candidate for outpatient joint program from anesthesia standpoint. Chart Review Chart Review: Pending: Refer to Additional Notes / Consult section and Patient seen in Pre Admission Testing Teaching & Discussion Pre-Anesthesia Teaching/Discussion Notes: Instructed NPO after midnight before surgery, except medications with 15 cc of water. Medication instructions provided according to the PAT guidelines. History Surgery Operation Date: 08/04/24 07:00 Proposed Procedures p Left Total Hip Arthroplasty Anterior - Norberto Mccann, Height/Weight Height: 5 ft 11 in Weight: 128.5 kg Allergies Allergy/AdvReac Type Severity Reaction Status Date / Time DEIDRE Inhibitors AdvReac Unknown Cough Verified 07/04/24 11:54 Medications Home Medications Medication Instructions Recorded Confirmed Last Taken clopidogrel 75 mg tablet (Plavix) 75 mg PO QAM 02/04/18 07/04/24 02/25/22 finasteride 5 mg tablet 5 mg PO QAM 02/04/18 07/04/24 02/25/22 folic acid 1 mg tablet 1 mg PO QAM 02/04/18 07/04/24 02/25/22 levothyroxine 125 mcg tablet 125 mcg PO QAM 02/04/18 07/04/24 02/25/22 tamsulosin 0.4 mg capsule (Flomax) 0.4 mg PO HS 02/04/18 07/04/24 02/25/22 losartan 50 mg tablet 50 mg PO BID 05/13/18 07/04/24 02/25/22 atorvastatin 40 mg tablet 40 mg PO QAM 04/14/20 07/04/24 02/25/22 metoprolol succinate 25 mg 25 mg PO QAM 04/14/20 07/04/24 02/25/22 tablet,extended release 24 hr omeprazole 20 mg capsule,delayed 20 mg PO QAM 04/14/20 07/04/24 02/18/22 release amlodipine 5 mg tablet 5 mg PO QAM 07/12/20 07/04/24 02/25/22 insulin aspart U-100 100 unit/mL 0 unit subcut CONTINOUS 07/12/20 07/04/24 11/14/21 subcutaneous solution aspirin 81 mg tablet,delayed 81 mg PO QAM 03/13/21 07/04/2422 release gabapentin 300 mg capsule 300 mg PO BID 03/13/21 07/04/24 02/25/22 potassium chloride 20 mEq 20 meq PO QAM 08/12/21 07/04/24 02/25/22 tablet,extended release multivitamin 1 tab PO QAM 11/11/21 07/04/24 02/25/22 atropine 1 % eye drops 1 drp OPL DAILY 02/26/22 07/04/24 Unknown furosemide 40 mg tablet 40 mg PO .QAM UD 09/11/22 07/04/24 Unknown nitroglycerin 0.4 mg sublingual 0.4 mg sublingual DIRECTED PRN 03/20/23 07/04/24 Unknown tablet Chest Pain venlafaxine 150 mg 150 mg PO QAM 03/20/23 07/04/24 Unknown capsule,extended release 24 hr coQ10 (ubiquinol) 100 mg capsule 0 mg PO UD 04/12/24 07/04/24 Unknown (Qunol Vitor CoQ10) mv-mn-folic 200 mcg-vit K 15 1 cap PO DAILY 04/12/24 07/04/24 Unknown mcg-lutein 5 mg-zeaxanthin 1 mg capsule (PreserVision AREDS 2 Plus Multivit) Past Medical History Medical History (Updated 07/12/24 @ 08:24 by Kary Mckeon PA-C) Alcohol abuse Aortic root enlargement Balance disorder BPH (benign prostatic hyperplasia) CAD (coronary artery disease) s/p NSTEMI 2015-see cardiology 06/29/24 note for catheterization details- medical management advised Cataracts, both eyes Chronic heart failure with preserved ejection fraction (HFpEF) EF 50-55% Chronic venous insufficiency hx sx. CKD (chronic kidney disease) stage 3, GFR 30-59 ml/min COPD (chronic obstructive pulmonary disease) controlled, stable per pt-lost to f/u with [facility] pulmonology per chart review/patient-denies inhaler use Depression Dyslipidemia Dyspnea on effort Frequent falls hx, has improved. GERD (gastroesophageal reflux disease) controlled, stable per pt Hiatal hernia History of atrial fibrillation History of colon polyps History of COVID-19 (2019) History of myocardial infarction (~2015) History of pneumonia (2021) History of seizures unknown details regarding dx, last one approx 2017. Unknown details regarding etiology. Has neurologist but mainly focus is on neuropathy per pt. Denies seizure medication. SAMISH (hard of hearing) left ear worse HTN (hypertension) controlled, stable per pt Hyperlipidemia Hyponatremia Hypothyroidism Iron deficiency anemia monitors Liver mass MGUS (monoclonal gammopathy of unknown significance) Neuropathy Poor historian Sleep apnea CPAP-compliant Type 1 diabetes mellitus insulin pump Patient denies h/o stroke, blood clots/DVTs or blood transfusions. Exercise / Class Metabolic Activity II 4-5 Yardwork/Stairs/Walk up hill (shortness of breath with activities ongoing for several years-denies change or worsening; denies chest discomfort) Past Family History Family History Other Cancer Diabetes Hypertension Past Surgical History Surgical History History of cardiac cath 2020? [facility]NO [facility] History of colonoscopy History of ear surgery left History of endoscopy History of eye surgery several right eye, hx injury. History of hand surgery BILAT HANDS-FINGER AMPUTATIONS History of tonsillectomy and adenoidectomy History of total right hip replacement History of vascular surgery right for vericose veins. Past Anesthesia History No Hx of Anesthesia Complications and No Family Hx of Anesthesia Complications History of PONV No Hx of PONV and No Hx of Motion Sickness Social History Smoking Status: Former smoker Smoking cigarettes per day: 30 Do You Dip or Chew Tobacco: No Smoking End Date: 01/05/95 Hx Alcohol Use: Yes Alcohol type: hard liquor alcohol intake frequency: 3 or more drinks per day (4 alcoholic drinks daily) Hx Substance Use: Yes (hx smoked marijuana remote hx, not current) substance use type: does not use Review of Systems Patient denies chest pain, fever, chills, cough, wheezing, or palpitations. Physical Exam Vital Signs Vitals BP 97/60 manual left arm resting P 67 TEMP 98.2 SP02 95% on RA RESP 18 Physical Patient resting comfortably in chair in no acute distress, alert and oriented, responding appropriately throughout visit Full cervical extension range of motion without pain TMD 3 finger breadths Mallampati Score 3 Dentition: several chipped teeth, denies loose teeth, caps/crowns, implants or bridges Lungs: normal respiratory effort. Good air movement, clear throughout to auscultation, no adventitious breath sounds Cardiac: regular rate and rhythm, no murmurs noted Carotid arteries: negative bruit bilat Lab Results Anesthesia Preop Results Results Anesthesia Widget: POC Glucose 133 mg/dl (70-99) H 07/11/24 PT 10.8 Seconds (9.0-12.0) 07/11/24 PTT 26 Seconds (21-31) 07/11/24 INR 1.0 (0.9-1.1) 07/11/24 Blood Type B Negative 07/11/24 Antibody Screen NEGATIVE 07/11/24 Testing Laboratory Results 06/23/24 WBC: 9.3 H/H: 14 PLATELETS: 324,000 07/10/24 SODIUM: 134 POTASSIUM: 3.8 CHLORIDE: 92 CO2: 26 BUN: 15 CREATININE: 1.3 GLUCOSE: 184 A1c: 7.4% Electrocardiogram Date: 06/29/24 NSR, rate 67 bpm T wave abnormality, consider inferior ischemia No significant change was found when compared with 07/06/23 EKG per report Chest X-Ray Date: 07/11/24 No acute findings.
--- OUTSIDE RECORDS SUMMARY | 2024-08-04 05:42 | External Medical Summary | Summary of Care ---
Author Name Unknown Organization [facility] Address [address] [place] [address] Phone [phone] Care Team Providers Care Enrichment Assistant Name Role Phone Farzad Hatfield DO Primary Care Provider Reason for Visit * Reason Onset Date Comments Advice 07/25/2024 SIL Arias NP/ Seen at [facility] Encounter Details Date Type Department Care Team (Late st Contact Info) Description 07/25/2024 Telephone Cardiology, [place] [address] [place] [place] [address] Elis Martinez CRNP [address] [place] [address] Advice (ARMIAD Arias/ Seen at [facility]... Allergies Active Allergy Reactions Criticality Noted Date Comments Jose Manuel Inhibitors Cough Low 09/13/2009 documented as of this encounter (statuses as of 07/26/2024) Medications ASPIRIN 81 MG PO TABS 1 TABLET DAILY Activ e Lancets MISC Test 4 times a day E10.9 E10.42 100 Each 11 03/26/20 17 Active Multiple Vitamins-Minerals (MULTIVITAMIN ADULT) TABS Take 1 Tab by mouth daily. Active Glucose Blood In Vitro Strip Test 4 times a day E10.9 E10.42 100 Strip 11 06/11/19 Active CPAP every night at bedtime . Active Insulin Aspart 100 UNIT/ML Injection Solution (NovoLOG) Use up to 200 units daily via insulin pump E 11.9 90 mL 11 10/21/2023 10:07 AM EDT 10/30/19 Active Insulin Syringe-Needle U-100 30G X 5/16" 1 ML (UltiCare Insulin Syringe) Use to administer novolog 10 Each 12/18/2022 5:23 PM EDT 12/18/19 Active Nitroglycerin 0.4 MG Sublingual Tablet Sublingual (Nitrostat)Indicat ions:Coronary artery disease involving te-moak coronary artery of te-moak heart without angina pectoris Place 1 Tablet under the tongue as needed for Pain, Chest. May repeat 3 times. If chest pain continues, call 911. 25 Tablet 11 02/24/2023 4:41 PM EDT 02/19/20 Active Additional Information Patient not taking.Reported on 06/29/2024 Acetaminophen 500 MG Oral Capsule Take 1 Capsule by mouth every 4 hours as needed. Active Clopidogrel Bisulfate 75 MG Oral Tablet (pLAVix) TAKE ONE TABLET BY MOUTH DAILY 90 Tablet 3 06/29/2024 12:07 PM EST 08/25/19 24 Active Metoprolol Succinate ER 25 MG Oral Tablet Extended Release 24 Hour (toPROL XL) Take 1 Tablet by mouth in the morning and 1 Tablet before bedtime. 180 Tablet 3 06/29/2024 12:07 PM EST 10/18/19 24 Active Gabapentin 300 MG Oral Capsule (Neurontin) TAKE 1 CAPSULE BY MOUTH THREE TIMES A DAY 270 Capsule 3 06/29/2024 12:07 PM EST 10/28/19 24 025 Active amLODIPine Besylate 5 MG Oral Tablet (Norvasc) TAKE 1 TABLET BY MOUTH DAILY. 90 Tablet 1 02/10/2024 4:50 PM EDT 11/09/19 24 025 Active DIURETIC TITRATION PLAN Please take an additional dose of Lasix (40 mg) x 2 days. If no improvement on day 3, contact heart failure managing provider. 1 Each 11/25/19 24 Active Folic Acid 1 MG Oral TabletIndications: Coronary artery disease involving te-moak coronary artery of te-moak heart without angina pectoris TAKE ONE TABLET BY MOUTH DAILY 90 Tablet 3 06/29/2024 12:07 PM EST 11/29/19 24 025 Active Atorvastatin Calcium 40 MG Oral Tablet (Lipitor)Indicatio ns:Type 1 diabetes mellitus with hyperglycemia (HCC),Dyslipidemia , goal LDL below 100,HTN, goal below 140/80 TAKE ONE TABLET BY MOUTH DAILY 90 Tablet 1 04/28/2024 12:10 PM EST 01/14/20 24 Active Finasteride 5 MG Oral Tablet (Proscar) TAKE ONE TABLET BY MOUTH BEFORE BEDTIME 90 Tablet 2 04/28/2024 12:10 PM EST 01/21/20 24 Active Potassium Chloride Lorie ER 20 MEQ Oral Tablet Extended Release Take 1 Tablet by mouth in the morning and 1 Tablet before bedtime. 180 Tablet 3 06/29/2024 12:07 PM EST 02/02/20 24 Active Furosemide 40 MG Oral Tablet (Lasix)Indications :Chronic heart failure with preserved ejection fraction (HCC) Take 1 Tablet by mouth 2 times a day in the morning and at noon. May also take 1 Tablet daily as needed (dyspnea or edema). 90 Tablet 3 05/12/2024 4:32 PM EST 02/04/20 24 Active Insulin Aspart 100 UNIT/ML Injection Solution (NovoLOG) INJECT UP TO 200 UNITS DAILY VIA INSULIN PUMP 180 mL 3 06/23/2024 11:10 AM EST 02/08/20 24 025 Active Venlafaxine HCl ER 150 MG Oral Capsule Extended Release 24 Hour (Effexor XR) Take 1 Capsule by mouth in the morning. 90 Capsule 1 06/29/2024 12:07 PM EST 03/15/20 24 025 Active Levothyroxine Sodium 125 MCG Oral Tablet (Levoxyl)Indicatio ns:Acquired hypothyroidism TAKE 1 TABLET BY MOUTH DAILY (AT LEAST 30 MINUTES PRIOR TO BREAKFAST OR OTHER MEDS) 90 Tablet 3 06/29/2024 12:07 PM EST 03/21/20 24 Active Tamsulosin HCl 0.4 MG Oral Capsule (Flomax) TAKE ONE CAPSULE BY MOUTH DAILY 90 Capsule 1 06/29/2024 12:07 PM EST 03/29/20 24 Active CoQ10 200 MG Oral Capsule Take 200 mg by mouth in the morning. 2 caps daily . Active [facility] Oral Capsule Take by mouth daily. 2 capsules daily Active Losartan Potassium 50 MG Oral Tablet (Cozaar)Indication s:HTN, goal below 130/80 Take 1 Tablet by mouth in the morning. 90 Tablet 3 04/12/2024 4:48 PM EST 04/05/20 24 025 Active cycloSPORINE 0.05 % Ophthalmic Emulsion (Restasis) Instill 1 Drop into the left eye in the morning and 1 Drop before bedtime. 180 Each 3 04/28/2024 12:10 PM EST 04/24/20 24 Active Omnipod 5 [id number] Pods Gen 5Indications:Type 1 diabetes mellitus with hyperglycemia (HCC) Use 1 pod every 2 days 45 Each 3 07/14/2024 12:38 PM EST 06/16/19 25 Active Dexcom G7 Sensor Use 1 sensor every 10 days 9 Each 3 07/20/19 25 Active Hospital, Clinic, or Other Facility Administered Medication Ordered Dose Route Frequency Start Date End Date Status albuterol sulfate (PROVENTIL) (2.5 MG/3ML) 0.083% inhalation solution 2.5 mgIndications:SOB (shortness of breath) 2.5 mg NEBULIZER Q4H PRN 03/28/2019 Act yana documented as of this encounter (statuses as of 07/26/2024) Active Problems Problem Noted Date Diagnosed Date Morbid obesity with body mas s index (BMI) of 40.0 to 44.9 in adult 02/22/2024 Severe episode of recurrent major depressive disorder, without psychotic features 08/19/2023 Alcohol dependence with unsp ecified alcohol-induced disorder 08/19/2023 Type 2 diabetes mellitus with other skin ulcer ( CODE) 08/19/2023 Atherosclerosis of te-moak co ronary artery without angina pectoris 08/19/2023 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 with unspecified severity 08/19/2023 DM peripheral angiopathy 05/25/2023 Assessment & Plan (05/25/2023 4:57 PM EST): "RED FLAG" Diabetic symptoms: Generalized Weakness Goal HgbA1c <7 Diabetic Complications Vascular (examples: PVD, PAD, CAD, CVA) Neurologic (example: Peripheral Neuropathy) Recurrent Infections (example: Cellulitis, UTI) Amputation(s) Opthalmologic Medication Regimen Other: insulin pump DM Secondary Prevention JOSE MANUEL Inhibitor / ARB Moderate-High Intensity Statin Aspirin Routine Podiatry Care Yearly Diabetic Eye Exam Additional Comments Followed by MTM and vascular Ambulatory dysfunction 05/25/2023 Assessment & Plan (05/25/2023 5:03 PM EST): Falls frequently--has walker. Falls secondary poor vision, neuropathy, leg/joint weakness and alcohol use. Declines PT eval. Aortic atherosclerosis 05/25/2023 Assessment & Plan (05/25/2023 5:05 PM EST): Aortic Atherosclerosis noted on prior imaging. Continue with treatment including Antiplatelet therapy Blood pressure control Lipid control Glycemic control Varicose veins of right lowe r extremity with both ulcer of other part of lower extremity and inflammation (CODE) 02/18/2023 Type 1 diabetes mellitus wit h stage 2 chronic kidney disease 01/21/2023 History of amputation of finger, left 01/21/2023 Overview (01/21/2023): L middle finger Liver mass, left lobe 11/17/2022 Hypertensive heart and kidne y disease with chronic diastolic congestive heart failure and stage 2 chronic kidney disease 10/28/2022 Assessment & Plan (05/25/2023 5:02 PM EST): "RED FLAG" HF Symptoms: Leg Swelling (Examples: "I can't wear certain socks or shoes", "My pants feel tight") Medication Regimen: Beta Steven Therapy: Metoprolol Succinate (ER) JOSE MANUEL Inhibitor/ARB Therapy: Losartan Diuretic therapy: Lasix SGLT2 Inhibitor: No Current SGLT2 (Describe in the Comments) Remote Patient Monitoring Vendor: [facility] [place] Device(s): Connected Scale Self - Management Plan Double dose of Furosemide for 3 days Exacerbation Plan BMP Chest X-Ray Additional Comments: Stable today Wound of right lower extremity 09/29/2022 Assessment & Plan (09/29/2022 10:49 AM EDT): Attending wound care every Wednesday and . Notes that it is healing well. Other specified disorders of arteries and arteri oles 07/10/2022 Stage 3a chronic kidney disease 07/10/2022 Acquired absence of right hand 04/28/2022 Paroxysmal atrial fibrillation 04/28/2022 Assessment & Plan (05/25/2023 4:55 PM EST): Noted 02/26 when inpatient, resolved with correction of electrolytes when inpatient. Not on AC. Per last cardiology note, could consider if has recurrence Assessment & Plan (09/29/2022 10:45 AM EDT): Regular today -no AC due to fall risk. Continue metoprolol, ASA Assessment & Plan (08/17/2022 9:03 AM EDT): Regular today -continue metoprolol. Likely not on anticoagulants due to fall risk. Chronic heart failure with preserved ejection fr action 03/24/2021 Assessment & Plan (09/29/2022 10:44 AM EDT): Heart Failure "RED FLAG" HF Symptoms: o Leg Swelling (Examples: "I can't wear certain socks or shoes", "My pants feel tight") o Increased dyspnea on exertion (Example: "I can't walk to the kitchen or up the stairs") Current Heart Failure Classifications: o With ordinary activity such as doing housework, yard work or shopping ([employer] CLASS II) Medication Regimen: o Beta Steven Therapy: Metoprolol Succinate (ER) o JOSE MANUEL Inhibitor/ARB Therapy: Losartan o Diuretic therapy: Lasix o Diuretic Titration Protocol in place: yes o Last time DTP used: about 1 month ago Consistently doubling lasix. Updated prescription sent. NEEDS TO START WEIGHING CONSISTENTLY. [facility] SCALE IN HOME Recheck BMP on increased lasix dose next week Assessment & Plan (08/17/2022 9:01 AM EDT): Heart Failure "RED FLAG" HF Symptoms: o Leg Swelling (Examples: "I can't wear certain socks or shoes", "My pants feel tight") o Increased dyspnea on exertion (Example: "I can't walk to the kitchen or up the stairs") Current Heart Failure Classifications: o With ordinary activity such as doing housework, yard work or shopping ([employer] CLASS II) Medication Regimen: o Beta Steven Therapy: Metoprolol Succinate (ER) o JOSE MANUEL Inhibitor/ARB Therapy: Losartan o Diuretic therapy: Lasix o Diuretic Titration Protocol in place: No. o Last time DTP used: 1 weeks ago Consistently doubling lasix. Updated prescription sent. History of non-ST elevation myocardial infarctio n (NSTEMI) 07/22/2020 Ascending aorta dilatation 06/10/2020 Assessment & Plan (05/25/2023 5:01 PM EST): Followed by cardiology Moderate persistent asthma without complication 03/04/2020 Assessment & Plan (09/29/2022 10:46 AM EDT): No recent exacerbation. Oxygen stable on room air. PFTs scheduled for November -continue albuterol p.r.n. Assessment & Plan (08/17/2022 9:04 AM EDT): Quit smoking over 20 years ago. No recent exacerbation. Oxygen stable on room air. -continue albuterol p.r.n. Mixed conductive and sensori neural hearing loss of left ear with restricted hearing of right ear 01/17/2020 Absolute anemia 05/11/2019 MGUS (monoclonal gammopathy of unknown significa nce) 05/11/2019 Other iron deficiency anemias 05/11/2019 Hypokalemia 08/19/2018 CHANTELL on CPAP 05/03/2018 Organic erectile dysfunction 12/01/2016 Type 1 diabetes mellitus wit h hemoglobin A1c goal of less than 7.0% 07/10/2016 Assessment & Plan (09/29/2022 10:47 AM EDT): Last hemoglobin A1c 7.8, which is higher than previous. -as insulin pump that is managed by pharmacy. Assessment & Plan (08/17/2022 9:06 AM EDT): Last hemoglobin A1c 6.3 02/26 -insulin pump per [place] management Orthostatic hypotension 05/27/2016 Alcohol dependence 05/14/2016 Assessment & Plan (05/25/2023 5:00 PM EST): Continues to drink 1pt bourban daily. Has been drinking for a long time. CAGE--3pt Denies tremors when he does not drink "not yet" Was in the hospital and denies tremors. Feels it is habit. Advised resources available to assist with cessation BPH with obstruction/lower urinary tract symptom s 06/06/2014 Assessment & Plan (08/17/2022 9:06 AM EDT): Symptoms controlled with Flomax HTN, goal below 130/80 07/03/2009 Overview (07/03/2009): Per HTN Taxonomy. Assessment & Plan (09/29/2022 10:44 AM EDT): BP stable -continue medications as noted above. Assessment & Plan (08/17/2022 9:03 AM EDT): BP stable -continue metoprolol, losartan, Norvasc, Lasix Acquired hypothyroidism 08/15/1997 Assessment & Plan (09/29/2022 10:48 AM EDT): Last TSH 2.1 04/28 -continue Synthroid Assessment & Plan (08/17/2022 9:05 AM EDT): Last TSH 2.1 04/28 -continue Synthroid Gastroesophageal reflux dise ase with esophagitis without hemorrhage Assessment & Plan (08/17/2022 9:04 AM EDT): Symptoms controlled with omeprazole 20 mg twice daily Dyslipidemia, goal LDL below 70 Overview (05/20/2009): Per Lipid Taxonomy. documented as of this encounter (statuses as of 07/26/2024) Resolved Problems Problem Noted Date Diagnosed Date Resolved Date Body mass index (BMI) of 40. 0 to 44.9 in adult 02/14/2024 06/22/2024 Overview: Per Obesity protocol Moderate persistent asthma with exacerbation 3 12/01/2023 Bleeding from the nose 10/28/202201/21 Fall 07/29/2022 01/21/2023 Assessment & Plan (08/17/2022 9:07 AM EDT): No recent falls -Continue PT Vitreous hemorrhage, right eye 07/10/2022 07/10/2022 Malignant neoplasm of urinary bladder 04/28/2022 07/10/2022 Medical home patient encounter 03/18/2022 06/22/2022 BOGGS (dyspnea on exertion) 01/22/2022 COPD, moderate 11/20/2021 12/01/2023 Overview (05/25/2023): PFT 11/08/22: HISTORY: Patient is 67-year-old male , with with about 35 pack-years smoking history. BMI is 38.8.SPIROGRAM: Shows pre bronchodilator FEV1 to be 63% of predicted, FVC is 67% of predicted. FEV1/FVC ratio is acceptable. Post bronchodilator FEV1 is decreased. There is no significant bronchodilator responseSMALL AIRWAYS: The flow of air at 25 - 75% of vital capacity is decreasedLUNG VOLUMES: Lung volumes when measured by body plethysmography shows SVC is reduced, but the TLC is within normal limits. DIFFUSION CAPACITY: Diffusion capacity is decreased at 49% of predictedRESISTANCE: Airway resistance is increased while specific conductance is decreased .CONCLUSION: PFT is suggestive of moderate obstructive ventilatory impairment. Lung volumes are suggestive of air trapping. Diffusion capacity is severely decreased at 49% of predicted. When compared to patient's prior spirogram of March 2019, there is significant decline in both FEV1 and FVC.This interpretation has been electronically signed: Kenyon Garcia 11/08/2022 07:28:26 PM Assessment & Plan (05/25/2023 4:59 PM EST): "RED FLAG" COPD symptoms: NO IDENTIFIED SYMPTOMS Medication Regimen All Classes - OLIVER Class D, Asthma/COPD Overlap - Inhaled Glucocorticoid-LABA Combination Inhaler Remote Patient Monitoring Vendor: [facility] [place] Device(s): Connected Scale Self-Management plan Other/Additional Comments: Use rescue inhaler Exacerbation plan BMP Pro-BNP Chest Xray Additional Comments: He reports he has never had exac or used rescue inhaler. He states he has rescue inhaler somewhere in the house. Advised to notify RN of med with next visit and ensure not . I will refill if he needs. He would like to try to find his prior to getting new rx. Gastroesophageal reflux disease 11/20/2021 02/21/2024 Overview (02/21/2024): More specified on pl Other iron deficiency anemias 09/12/2021 06/22/2022 Chronic osteomyelitis of left foot 03/24/2021 07/10/2022 Overview (11/19/2021): 03/2021 Historical Amputation of left middle finger 07/22/2020 01/21/2023 Amputation of right index finger 07/22/2020 06/22/2022 Obesity, Class II, BMI 35-39 .9, isolated (see actual BMI) 03/04/2020 02/21/2024 Overview (02/21/2024): historical Cholesteatoma of attic of left ear 02/26/2020 07/22/2020 Sensorineural hearing loss ( SNHL) of right ear 01/17/2020 03/21/2021 Hyponatremia 08/19/2018 07/22/2020 Congestive heart failure (CHF) 06/23/2018 03/24/2021 Seizure disorder, simple par tial, without intractable epilepsy 05/16/2018 07/10/2022 Overview (11/19/2021): EEG showing non specific encephalopathy Need Update EEG DM type 1, not at goal 10/13/201607/22 Hypoxemia 01/04/2016 07/22/2020 Overview (01/04/2016): Pulse ox 87% after 3 minutes ambulation Coronary artery disease invo lving te-moak coronary artery of te-moak heart without angina pectoris 11/21/2015 02/21/2024 Overview (02/21/2024): Duplicated Assessment & Plan (05/25/2023 4:57 PM EST): Recent stress test reviewed. No reproducible ischemia noted. -continue losartan, metoprolol, aspirin, Plavix -follows with cardiology Assessment & Plan (09/29/2022 10:43 AM EDT): Recent stress test reviewed. No reproducible ischemia noted. -continue losartan, metoprolol, aspirin, Plavix -follows with cardiology Assessment & Plan (08/17/2022 9:02 AM EDT): Dyspnea with exertion noted. -stress test coming up -continue metoprolol, aspirin, Plavix, losartan NSTEMI (non-ST elevated myoc ardial infarction) 10/05/2015 07/22/2020 Overview (01/04/2016): Preserved LV function Aortic root enlargement 07/12/201507/08 Cough syncope 07/03/2015 07/11/2019 Overview (07/11/2019): History Impotence, organic 11/08/2014 Decreased libido 07/13/2014 07/22/2020 Nocturia 06/06/2014 03/21/2021 Lower extremity edema 06/06/20142020 HTN, GOAL BELOW 140/80 01/25/201209/11 Overview: Per HTN Protocol #27. Dyslipidemia 05/20/2009 09/24/2022 Overview (05/20/2009): Per Lipid Taxonomy. ADVANCE DIRECTIVE INFORMATION 11/05/2005 07/22/2020 Overview (11/05/2005): Information given to patient Family history of malignant neoplasm of prostate 03/26/2004 07/22/2020 DM type 2, not at goal 05/19/200203/21 Overview (03/21/2009): Modified per Diabetes protocol #14. HTN, goal below 140/90 07/03 Overview (07/03/2009): Per HTN Taxonomy. ALCOHOL ABUSE-CONTINUOUS Hypertension 05/17/2019 Overview (05/17/2019): Duplicate/ kept code that included goal documented as of this encounter (statuses as of 07/26/2024) Immunizations Name Administration Dates Next Due COVID-19 mRNA, LNP-s, No Pre serve, 2-Dose Series (Moderna) 03/12/2021,09/10/2020,08/20/2020 COVID-19, LNP-s, No Preserve , Taran-sucrose, Ages 12+ (Pfizer) 12/30/2021 COVID-19, MRNA-LNP, 24-25, P R, 30MCG/0.3ML, IM, 12YRS AND ABOVE ([employer]) 02/22/2024 COVID-19, MRNA-LNP, PF, 30 M CG/0.3 mL, 12 YRS AND ABOVE, IM ([employer]) 06/16/2023 Covid-19, Mrna, Lnp-s, Pf, B ivalent, 30 Mcg, IM, 12 yrs and above (Pfizer) 04/28/2022 H1N1 2009 Influenza, IM 07/08/2009 Hepatitis B, 20+ yrs 12/06/2014,06/15/2014,04/10 Pneumococcal Conjugate Vacc, 13 Valent (Prevnar) 02/21/2016 Pneumococcal Conjugate Vacci ne, 20-valent ([id number]) 02/18/2023 RSV Vac., Bivalent, Perfusio n F, Pf,0.5 Ml (Abrysvo) 02/22/2024,06/16/2023 Season Influenza, Quad, PF, Adjuvanted, 65+ Yrs, IM (FLUAD) 03/07/2021 Seasonal Influenza Vac., MDV , IM, 0.5 mL (Fluzone) 03/21/2014,03/21/2013,02/23/2012,2010,03/18/2010,03/15/2009,04/06/2008,1 ,04/19/2006 Seasonal Influenza, High Dos e, Trivalent, PF, IM (Fluzone HD) 02/22/2024 Seasonal Influenza, PF, 6 M & above, IM , (FluLaval or Fluzone) 03/06/2022,02/24/2020,03/27/2019,2017,03/02/2017 Seasonal Influenza, Quadriva lent Hd (Fluzone Hd) 02/18/2023 Seasonal Influenza, Quadriva lent, No Preserve, IM 02/06/2016,03/20/2015 TD, Preservative Free 03/27/2019 TDAP (age 10 and older)(Boostrix) 11/20/2021 TDAP, Age 7 and older, IM (Adacel) 03/15/2009 Zoster Vaccine Recombinant (Shingrix) 12/28/2019 ,05/19/2019 documented as of this encounter Social History Tobacco Use Types Packs/Day Years Used Date Smoking Tobacco: Former Cigarettes 1.5 20 0 01/05/1975 - 01/05/1995 Smokeless Tobacco: Never Alcohol Use Standard Drinks/Week Comments Yes 42 (1 standard drink = 0.6 oz pure alcohol) [employer] Liquor: "as much as I can" 1/2 liter per day PHQ-2 Answer Date Recorded PHQ-2 Score -1 02/25/2020 Hunger Vital Sign Answer Date Recorded Within the past 12 months, y ou worried that your food would run out before you got the money to buy more. Never true 04/04/20 24 Within the past 12 months, t he food you bought just didn't last and you didn't have money to get more. Never true 04/04/2024 Childcare Answer Date Recorded Do you feel overwhelmed with taking care of a child, family member or friend? No 04/04/2024 Does your family need help f inding childcare? (Household - for ages 0-17 years) Not on file 04/04/2024 Clothing Answer Date Recorded Have you been unable to get clothing when it was really needed? No 04/04/2024 Is your family able to get c lothes or diapers when needed? (Household - for ages 0-17 years) Not on file 04/04/2024 Personal Safety Answer Date Recorded Do you feel unsafe or have concerns for your saf ety? No 04/04/2024 Do you have concerns for you r family's safety? (Household - for ages 0-17 years) Not on file 04/04/2024 Utilities Answer Date Recorded Do you have trouble paying y our heating, water, or electric bill? No 04/04/2024 Is your family able to pay t he heat, water, or electric bill? (Household - for ages 0-17 years) Not on file 04/04/2024 Does your family have access to good internet? (Household - for ages 0-17 years) Not on file 04/04/2024 Employment Status Answer Date Recorded Are you unemployed or without regular income? No 04/04/2024 Does the household have a re gular source of income? (Household - for ages 0-17 years) Not on file 04/04/2024 Social Connections Answer Date Recorded How often do you feel lonely or isolated from th ose around you? Never 04/04/2024 Financial Resource Strain Answer Date R ecorded Do you have any trouble payi ng for your medications, or do you think you might in the future? No 04/04/2024 Does your family have troubl e paying for medicine? (Household - for ages 0-17 years) Not on file 04/04/2024 Transportation Needs Answer Date Record ed Do you have trouble getting a ride to medical visits or work? (Adult - for ages 18 years and over) Not on file 04/04/2024 Does your family have a hard time getting a ride to doctors visits? (Household - for ages 0-17 years) Not on file 04/04/2024 Has lack of transportation k ept you from medical appointments, meetings, work, or from getting things needed for daily living? Check all that apply. No 04/04/2024 Do you (or your family) have trouble finding or paying for a ride (transportation)? (Household - for ages 0-17 years) Not on file 04/04/2024 Housing Stability Answer Date Recorded Do you currently live in a s helter or have no steady place to sleep at night? No 04/04/2024 Do you think you are at risk of becoming homeless? (Adult - for ages 18 years and over) Not on file 04/04/2024 Does your family worry about paying for your home or becoming homeless? (Household - for ages 0-17 years) Not on file 1 Are you homeless or worried that you might be in the future? No 04/04/2024 Are you (or your family) ariana eless or worried that you might be in the future? (Household - for ages 0-17 years) Not on file Food Insecurity Answer Date Recorded Do you need food for this week? No 04/04/2024 Are you able to get enough f ood for your family? (Household - for ages 0-17 years) Not on file 04/04/2024 Does your family need food t his week? (Household - for ages 0-17 years) Not on file 04/04/2024 Do you always have enough fo od for your family? (Household - for ages 0-17 years) Not on file 04/04/2024 Food Insecurity Answer Date Recorded Within the past 12 months, y ou worried that your food would run out before you got the money to buy more. Never true 04/04/20 24 Within the past 12 months, t he food you bought just didn't last and you didn't have money to get more. Never true 04/04/2024 Do you need food for this week? No 04/04/2024 Sex and Gender Information Value Date Recorded Sex Assigned at Male 12/28/2019 9:38 AM EDT Legal Sex Male 6:05 AM EST Gender Identity Male 12/28/2019 9:38 AM EDT Sexual Orientation Straight 12/28/2019 9: 38 AM EDT documented as of this encounter Miscellaneous Notes * Telephone Encounter - John Blevins LPN - 07/26/2024 11:28 AM EST Faxed. * Telephone Encounter - Elis Martinez CRNP - 07/25/2024 9:26 PM EST Patient scheduled for left hip replacement with Dr. Mccann at [facility] on 08/04/24. Can we fax this telephone encounter, last office visit note, and recent testing to [facility] - ? Thank you! * Telephone Encounter - Elis Martinez CRNP - 07/25/2024 9:04 PM EST Recent ECHO (07/20/24) revealed preserved LVEF 55-59%, small sized basal inferior and posterior wallmotion abnormality with mild hypokinesis, moderately enlarged aortic root measured at 4.6 cm (prior4.4 cm) and mildly enlarged proximal ascending measured at 4.0 (prior 4.0 cm). Aortic root enlargement slightly increased from prior study in 2021 otherwise no significant changes. In terms of preop risk assessment, per Markell Criteria, patient will be a moderate- high risk for any adverse perioperative cardiovascular events associated with left hip replacement surgery given. Patient is on a good medication regimen and no other cardiac testing or interventions would further lowerthat risk. Recommend continuing aspirin 81 mg daily and metoprolol succinate ER 25 mg twice daily perioperatively given cardiac history. Okay to hold Plavix for 5 days prior to surgery and resume when hemostasis has been achieved. * Telephone Encounter - Glenna Ray OSA - 07/25/2024 9:18 AM EST Person calling: Sh[facility] Relationship to patient: n/a Phone/Fax to return call: [phone]; Reason for call(brief): Cardiac Clearance Pharmacy: n/a Provider Name: ARMIDA Arias Detailed message to office: Shana Nair: [facility] Called to request final Cardiac Clearance for patient's upcoming procedure on 08/04/24 as patient's echo was completed. Please advise. Thank you, CHANTELL Whiteside documented in this encounter Plan of Treatment Upcoming Encounters Date Type Department Care Team (Late st Contact Info) Description 08/21/2024 10:15 AM EDT Office Visit [address] [address] Marquis Maldonado MD [address] [place] [address] 08/25/2024 9:30 AM EDT [facility], [facility] [address] [facility] [place] [address] Hyacinth Gabriel, KATINA 132 [place] [address] 09/27/2024 9:20 AM EDT Office Visit Family Practice [facility] [place] [address] Kathryn Zuleta CRNP [facility] [address] 09/28/2024 10:40 AM EDT Office Visit Pharmacy, [facility] [place] [address] [facility] 132 [place] [address] 10/26/2024 11:00 AM EDT Laboratory Laboratory, [facility] [address] [facility] [phone] BurgessRebecca vilchis [facility] [address] 11/02/2024 1:30 PM EDT Office Visit Hematology/Oncology [facility] [address] [facility], [place] [address] China Mason CRNP [address] [place] [address] 01/05/2025 11:00 AM EDT Office Visit Cardiology, [facility] 132 [facility] [place] [address] Elis Martinez CRNP [address] [place] [address] 02/06/2025 10:00 AM EDT Office Visit Family Practice [facility] [address] [place] [address] Farzad Hatfield DO [address] [place] [address] 05/21/2025 11:20 AM EST Office Visit Neurology [facility] 200 [facility] [place] [address] Wayne Mishra MD 200 [facility] [place] [address] Health Maintenance Due Date Last Done Comments Cologuard 2002 Fecal Occult Blood Test 2002 Sigmoidoscopy 2002 Depression Monitoring 02/28/2021 02/29/2020 AAA Screening 2022 COVID-19 Vaccine ( season) 2024 02/22/2024, 06/16/2023, 04/28/2022, Additional history exists TSH 11/30/2024 12/01/2023, 08/06, 04/28/2022, Additional history exists HbA1c 12/21/2024 06/23/2024, 05/07, 02/08/2024, Additional history exists GFR 01/07/2025 07/10/2024, 06/07, 04/28/2024, Additional history exists Diabetic Foot Exam 02/21/2025 02/22/2024, 0 10/27/2021, 12/28/2019, Additional history exists Diabetic Eye Exam 02/23/2025 02/24/2024, , 08/20/2023, Additional history exists Adult Wellness Visit 03/28/2025 03/28/2024 CKD HGB USE SMARTSET 82949 06/23/202506/23, 06/23/2024, 04/28/2024, Additional history exists CKD PHOS USE SMARTSET 02828 06/23/202506/07, 01/28/2024, 12/01/2023, Additional history exists Albumin/Creatinine Ratio 07/10/2025 025, 12/07/2023, 10/06/2022, Additional history exists Colonoscopy 11/15/2031 11/14/2021, 11/05, 07/30/2016, Additional history exists Colorectal Cancer Screening 11/15/2031 DTap/Tdap Vaccines (4 - Td or Tdap) 11/21/2031 11/20/2021, 03/27/2019, 03/15/2009 Hepatitis B Vaccine Completed 12/06/2014, 06/15/2014, 04/10/2014 Zoster Vaccines Completed 12/28/2019, 05/19/2019 Pneumococcal Vaccine: 50+ Years Completed 02/18/2023, 02/21/2016, 07/20/2003 Influenza Vaccine (FLU shot) Completed , 02/18/2023, 03/06/2022, Additional history exists HPV (Gardasil) Vaccine Aged Out No lo nger eligible based on patient's age to complete this topic MENINGOCOCCAL (MENACTRA/MENVEO) Aged Out No longer eligible based on patient's age to complete this topic Meningitis B Vaccine (Bexsero/Trumemba) Aged Out No longer eligible based on patient's age to complete this topic documented as of this encounter Medical Devices Not on filedocumented as of this encounter Advance Directives * Full Code (Latest Code Status on File) Date Activated Date Inactivated Comments 02/03/2022 1:00 PM 02/03/2022 11:09 PM Question Answer Comments Discussion of Advance Direct alberto occurred with: Not Discussed due to patient's condition * Full Code Date Activated Date Inactivated Comments 12/11/2021 9:03 AM 12/11/2021 2:30 PM This order ref lects the patients wishes and were consensually agreed upon. * Full Code Date Activated Date Inactivated Comments 12/11/2021 6:36 AM 12/11/2021 9:03 AM This order ref lects the patients wishes and were consensually agreed upon. * Full Code Date Activated Date Inactivated Comments 11/20/2021 1:34 PM 11/22/2021 12:03 AM This order reflects the patients wishes and were consensually agreed upon. Question Answer Comments Discussion of Advance Directives occurred with: Not Discussed Care Teams Enrichment Assistant Relationship Specialty Start Date End Date Farzad Hatfield DO [address] [place] [address] PCP - General Family Medicine 12/27/23 documented as of this encounter
--- OUTSIDE RECORDS SUMMARY | 2024-08-04 05:42 | External Medical Summary | Summary of Care ---
Author Name Unknown Organization [facility] Address [address] [place] [address] Phone [phone] Care Team Providers Care Nutrition Coordinator Name Role Phone Farzad Hatfield DO Primary Care Provider Reason for Visit * Reason Onset Date Comments [facility]: Maintenance 07/22/2024 Encounter Details Date Type Department Care Team (Late st Contact Info) Description 07/22/2024 10:45 AM EST Scheduled Telephone [facility], [facility] 132 [facility] [place] [address] [facility], Nurse [facility] 132 [facility] [place] [address] Allergies Active Allergy Reactions Criticality Noted Date Comments Jose Manuel Inhibitors Cough Low 09/13/2009 documented as of this encounter (statuses as of 07/22/2024) Medications ASPIRIN 81 MG PO TABS 1 TABLET DAILY Activ e Lancets MISC Test 4 times a day E10.9 E10.42 100 Each 11 03/26/20 17 Active Multiple Vitamins-Minerals (MULTIVITAMIN ADULT) TABS Take 1 Tab by mouth daily. Active Glucose Blood In Vitro Strip Test 4 times a day E10.9 E10.42 100 Strip 11 06/11/19 21 Active CPAP every night at bedtime . Active Insulin Aspart 100 UNIT/ML Injection Solution (NovoLOG) Use up to 200 units daily via insulin pump E 11.9 90 mL 11 10/21/2023 10:07 AM EDT 10/30/19 Active Insulin Syringe-Needle U-100 30G X 10/20" 1 ML (UltiCare Insulin Syringe) Use to administer novolog 10 Each 12/18/2022 5:23 PM EDT 12/18/19 Active Nitroglycerin 0.4 MG Sublingual Tablet Sublingual (Nitrostat)Indicat ions:Coronary artery disease involving chalk[place] coronary artery of [place] heart without angina pectoris Place 1 Tablet [...] MG Oral TabletIndications: Coronary artery disease involving [place] coronary artery of [place] heart without angina pectoris TAKE ONE TABLET [...] PM EST 04/24/20 24 Active Omnipod 5 [id number] Pods Gen 5Indications:Type 1 diabetes mellitus with [...] as of this encounter (statuses as of 07/22/2024) Active Problems Problem Noted Date Diagnosed Date Morbid obesity with body mas s index (BMI) of 40.0 to 44.9 in adult 02/22/2024 Severe episode of recurrent major depressive disorder, without psychotic features 08/19/2023 Alcohol dependence with unsp ecified alcohol-induced disorder 08/19/2023 Type 2 diabetes mellitus with other skin ulcer ( CODE) 08/19/2023 Atherosclerosis of [place] co ronary artery without angina pectoris 08/19/2023 [...] in the Comments) Remote Patient Monitoring Vendor: [facility] Device(s): Connected Scale Self - Management Plan [...] as of this encounter (statuses as of 07/22/2024) Resolved Problems Problem Noted Date Diagnosed Date [...] Glucocorticoid-LABA Combination Inhaler Remote Patient Monitoring Vendor: [facility] Device(s): Connected Scale Self-Management plan Other/Additional Comments: [...] minutes ambulation Coronary artery disease invo lving chalkyitsik coronary artery of [place] heart without angina pectoris 11/21/2015 02/21/2024 Overview [...] as of this encounter (statuses as of 07/22/2024) Immunizations Name Administration Dates Next Due COVID-19 mRNA, LNP-s, No Pre serve, 2-Dose Series (Moderna) 03/12/2021,09/10/2020,08/20/2020 COVID-19, LNP-s, No Preserve , Taran-sucrose, Ages 12+ (Pfizer) 12/30/2021 COVID-19, MRNA-LNP, 24-25, P R, 30MCG/0.3ML, IM, 12YRS AND ABOVE (UberMedia[employer] CreationirBacktrace I/O) 02/22/2024 COVID-19, MRNA-LNP, PF, 30 M CG/0.3 mL, 12 YRS AND ABOVE, IM (Evident Health) 06/16/2023 Covid-19, Mrna, Lnp-s, Pf, B ivalent, 30 Mcg, IM, 12 yrs and above (UberMedia) 04/28/2022 H1N1 2009 Influenza, IM 07/08/2009 Hepatitis B, 20+ yrs 12/06/2014,06/15/2014,04/10 Pneumococcal Conjugate Vacc, 13 Valent (Prevnar) 02/21/2016 Pneumococcal Conjugate Vacci ne, 20-valent ([id number]) 02/18/2023 RSV Vac., Bivalent, Perfusio n F, [...] standard drink = 0.6 oz pure alcohol) [employer] Liquor: "as much as I can" 1/2 [...] encounter Miscellaneous Notes * Telephone Encounter - Shaniqua Soria LPN - 07/22/2024 12:37 PM EST Images from the original note were not included. [facility] Telephonic Nurse Follow-Up Call [facility] Subprogram: Focused Care Management (3-9 months) Follow Up Call Type: Routine follow up call / Status Check Acute issue requiring follow-up call: Remote Patient Monitoring Trigger Objective: 06/29/2024 11:06 AM 06/23/2024 10:22 AM 05/29/2024 11:28 AM 05/09/2024 11:47 AM 05/01/2024 11:58 AM VITALS ACROSS ENCOUNTERS BP 118/64 134/70 126/74 158/96 124/63 Pulse 88 92 82 68 85 Weight 127.9 kg 130.4 kg 133.7 kg 134.7 kg BMI 39.35 kg/m2 40.1 kg/m2 41.12 kg/m2 41.44 kg/m2 Remote Patient Monitoring: Current Health Device: scale Oxygen Needs: NO supplemental oxygen needs identified DME Needs: NO DME needs identified Medications: No medication or dose adjustments made during acute episode Subjective: Condition Status: Symptoms resolved and back to baseline Current Concerns: Spoke with pt he feels good. Noted wt despite not having had sx he now feels like he is at his baseline. Taking meds as directed. Adhering to restrictions. Disposition: Issue resolved. All appropriate follow up scheduled. Future Visits Scheduled: Future Appointments-next 60 days Date/Time Provider Specialty Dept Phone 07/25/2024 4:00 PM Hyacinth Gabriel RN [facility] [phone] 08/21/2024 10:15 AM Marquis Maldonado MD Ophthalmology [phone] 09/27/2024 9:20 AM (Arrive by 9:05 AM) Kathryn Zuleta CRNP [facility] [phone] 09/28/2024 10:40 AM Aditya [facility] [phone] 10/26/2024 11:00 AM Aditya [facility] [phone] 01/05/2025 11:00 AM (Arrive by 10:45 AM) Elis Martinez CRNP Cardiology [phone] 02/06/2025 10:00 AM (Arrive by 9:45 AM) Farzad Hatfield DO [facility] [phone] 05/21/2025 11:20 AM (Arrive by 11:05 AM) Wayne Mishra MD Neurology [phone] Shaniqua Soria LPN documented in this encounter Plan of Treatment Upcoming Encounters Date Type Department Care Team (Late st Contact Info) Description 07/25/2024 4:00 PM EST Home Visit [facility], [facility] 132 [facility] [place] [address] Hyacinth Gabriel RN 132 [facility] [place] [address] 08/21/2024 10:15 AM EDT Office Visit [facility] [address] [place] [address] Marquis Maldonado MD 16 [place] [address] 09/27/2024 9:20 AM EDT Office Visit [facility] [address] [facility] [place] [address] Kathryn Zuleta CRNP 132 [place] [address] 09/28/2024 10:40 AM EDT Office Visit Pharmacy, [facility] [address] [place] [place] [address] Aditya [facility] 132 [facility] [place] [address] 10/26/2024 11:00 AM EDT Laboratory Laboratory, [facility] [address] [facility] [place] [phone] Aditya [facility] 132 [place] [address] 01/05/2025 11:00 AM EDT Office Visit Cardiology, [facility] [address] [facility] [place] [address] Elis Martinez CRNP [address] [facility] [place] [address] 02/06/2025 10:00 AM EDT Office Visit [facility] [address] [facility] [place] [address] Farzad Hatfield DO 132 [facility] [place] [address] 05/21/2025 11:20 AM EST Office Visit [facility] [address] [place] [address] Wayne Mishra MD [address] [place] [address] Health Maintenance Due Date Last Done Comments [...] Visit 03/28/2025 03/28/2024 CKD HGB USE SMARTSET 78339 06/23/202506/23, 06/23/2024, 04/28/2024, Additional history exists CKD PHOS USE SMARTSET 52489 06/23/202506/07, 01/28/2024, 12/01/2023, Additional history exists Albumin/Creatinine [...] Directives occurred with: Not Discussed Care Teams Nutrition Coordinator Relationship Specialty Start Date End Date Farzad Hatfield DO [address] [place] [address] PCP - General Family Medicine 12/27/23 documented as of this encounter
--- OUTSIDE RECORDS SUMMARY | 2024-08-04 05:42 | External Medical Summary | Summary of Care ---
Author Name Unknown Organization [facility] Address [address] [place] [address] Phone [phone] Care Team Providers Care Color Maker Name Role Phone Farzad Hatfield DO Primary Care Provider Reason for Visit * Reason Onset Date Comments Test Results 07/26/2024 Encounter Details Date Type Department Care Team (Late st Contact Info) Description 07/26/2024 Telephone Cardiology, [facility] [address] [place] [id number] Elis Martinez CRNP [address] [place] [address] Test Results Allergies Active Allergy Reactions Criticality Noted Date [...] Tablet Sublingual (Nitrostat)Indicat ions:Coronary artery disease involving lower sioux coronary artery of lower sioux heart without angina pectoris Place 1 Tablet [...] heart failure managing provider. 1 Each 11/25/19 Active Folic Acid 1 MG Oral TabletIndications: Coronary artery disease involving lower sioux coronary artery of lower [place] heart without angina pectoris TAKE ONE TABLET [...] PM EST 04/24/20 24 Active Omnipod 5 [id number] Pods Gen 5Indications:Type 1 diabetes mellitus with [...] skin ulcer ( CODE) 08/19/2023 Atherosclerosis of lower si[place] co ronary artery without angina pectoris 08/19/2023 [...] in the Comments) Remote Patient Monitoring Vendor: [facility] Device(s): Connected Scale Self - Management Plan [...] Steven Therapy: Metoprolol Succinate (ER) o JOSE MAUNEL Inhibitor/ARB Therapy: Losartan o Diuretic therapy: Lasix [...] Glucocorticoid-LABA Combination Inhaler Remote Patient Monitoring Vendor: [facility] Device(s): Connected Scale Self-Management plan Other/Additional Comments: [...] minutes ambulation Coronary artery disease invo lving lower sioux coronary artery of lower [place] heart without angina pectoris 11/21/2015 02/21/2024 Overview [...] LNP-s, No Preserve , Taran-sucrose, Ages 12+ (Neterion) 12/30/2021 COVID-19, MRNA-LNP, 24-25, P R, 30MCG/0.3ML, IM, 12YRS AND ABOVE (HealthQxWandoujia) 02/22/2024 COVID-19, MRNA-LNP, PF, 30 M CG/0.3 mL, 12 YRS AND ABOVE, IM (Cellworks) 06/16/2023 Covid-19, Mrna, Lnp-s, Pf, B ivalent, 30 Mcg, IM, 12 yrs and above (Neterion) 04/28/2022 H1N1 2009 Influenza, IM 07/08/2009 Hepatitis B, 20+ yrs 12/06/2014,06/15/2014,04/10 Pneumococcal Conjugate Vacc, 13 Valent (Prevnar) 02/21/2016 Pneumococcal Conjugate Vacci ne, 20-valent ([id number]) 02/18/2023 RSV Vac., Bivalent, Perfusio n F, [...] standard drink = 0.6 oz pure alcohol) Liquid X Liquor: "as much as I can" 1/2 [...] Encounter - John Blevins LPN - 07/26/2024 11:34 AM EST Sent patient a [employer] message to make aware. ----- Message from Elis Martinez sent at 07/25/2024 10:16 PM EST ----- Recent ECHO (07/20/24) revealed normal heart pumping function, moderately enlarged aortic root measured at 4.6 cm (prior 4.4 cm) and mildly enlarged proximal ascending measured at 4.0 (prior 4.0 cm). Aortic root enlargement slightly increased from prior study in 2021 otherwise no significant changes. Can review testing in more detail at follow-up visit - 01/05/25. We faxed recent testing, office visit note, and cardiac risk determination to [facility] for upcoming procedure. documented in this encounter Plan of Treatment Upcoming Encounters Date Type Department Care Team (Late st Contact Info) Description 08/21/2024 10:15 AM EDT Office Visit [facility] [address] [place] [address] Marquis Maldonado MD [address] [place] [address] 08/25/2024 9:30 AM EDT Home Visit [facility] [place] [address] Hyacinth Gabriel RN [address] [place] [address] 09/27/2024 9:20 AM EDT Office Visit Family Practice [facility] 132 [facility] [place] [address] Kathryn Zuleta CRNP 132 [facility] [place] [address] 09/28/2024 10:40 AM EDT Office Visit Pharmacy, [facility] [address] [place] [address] [facility] 132 [facility] [place] [address] 10/26/2024 11:00 AM EDT Laboratory Laboratory, [facility] 132 [facility] [place] [phone] BurgessRebecca vilchis [facility] [place] [address] 11/02/2024 1:30 PM EDT Office [facility] [place] [place] [phone] China Mason CRNP [address] [place] [address] 01/05/2025 11:00 AM EDT Office Visit Cardiology, [facility] 132 [facility] [place] [address] Elis Martinez CRNP [address] [place] [address] 02/06/2025 10:00 AM EDT Office Visit Family Practice [facility] 132 [facility] [place] [address] Farzad Hatfield DO 132 [facility] [place] [address] 05/21/2025 11:20 AM EST Office Visit Neurology [facility] [address] [facility] [place] [address] Wayne Mishra MD 200 [facility] [place] [address] Health Maintenance Due Date Last Done Comments [...] Visit 03/28/2025 03/28/2024 CKD HGB USE SMARTSET 25102 06/23/202506/23, 06/23/2024, 04/28/2024, Additional history exists CKD PHOS USE SMARTSET 29136 06/23/202506/07, 01/28/2024, 12/01/2023, Additional history exists Albumin/Creatinine [...] Directives occurred with: Not Discussed Care Teams Color Maker Relationship Specialty Start Date End Date Farzad Hatfield DO [address] [place] [address] PCP - General Family Medicine 12/27/23 documented as of this encounter
--- OUTSIDE RECORDS SUMMARY | 2024-08-04 05:43 | External Medical Summary | Summary of Care ---
Author Name Unknown Organization [facility] Address [address] [place] [address] Phone [phone] Care Team Providers Care Charge Attendant Name Role Phone Farzad Hatfield DO Primary Care Provider Reason for Visit * Reason Comments Dosage Adjustment In Person (Anticoag Cl inic) Diabetes Follow-Up Encounter Details Date Type Department Care Team (Late st Contact Info) Description 07/20/2024 11:00 AM EST Office Visit Pharmacy, [facility] [address] [facility] [place] [address] [facility] [address] [place] [id number] Type 1 diabetes mellitus with hemoglobin A1c goal of less than 7.0% ([facility])* Allergies Active Allergy Reactions Criticality Noted Date Comments Jose Manuel Inhibitors Cough Low 09/13/2009 documented as of this encounter (statuses as of 07/20/2024) Medications ASPIRIN 81 MG PO TABS 1 [...] 10/30/19 Active Insulin Syringe-Needle U-100 30G X /16" 1 ML (UltiCare Insulin Syringe) Use to administer novolog 10 Each 12/18/2022 5:23 PM EDT 12/18/19 Active Nitroglycerin 0.4 MG Sublingual Tablet Sublingual (Nitrostat)Indicat ions: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 Place 1 Tablet [...] MG Oral TabletIndications: 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 TAKE ONE TABLET [...] Active Levothyroxine Sodium 125 MCG Oral Tablet (Levoxyl)Ortiztio ns:Acquired hypothyroidism TAKE 1 TABLET BY MOUTH [...] PM EST 04/24/20 24 Active Omnipod 5 [id number] Pods Gen 5Indications:Type 1 diabetes mellitus with [...] as of this encounter (statuses as of 07/20/2024) Active Problems Problem Noted Date Diagnosed Date Morbid obesity with body mas s index (BMI) of 40.0 to 44.9 in adult 02/22/2024 Severe episode of recurrent major depressive disorder, without psychotic features 08/19/2023 Alcohol dependence with unsp ecified alcohol-induced disorder 08/19/2023 Type 2 diabetes mellitus with other skin ulcer ( CODE) 08/19/2023 Atherosclerosis of cowlitz co ronary artery without angina pectoris 08/19/2023 [...] in the Comments) Remote Patient Monitoring Vendor: [facility] Device(s): Connected Scale Self - Management Plan [...] hemoglobin A1c 6.3 02/26 -insulin pump per [facility] management Orthostatic hypotension 05/27/2016 Alcohol dependence 05/14/2016 [...] as of this encounter (statuses as of 07/20/2024) Resolved Problems Problem Noted Date Diagnosed Date [...] Glucocorticoid-LABA Combination Inhaler Remote Patient Monitoring Vendor: [facility] Device(s): [employer] Scale Self-Management plan Other/Additional Comments: Use rescue [...] minutes ambulation Coronary artery disease invo lving cowlitz coronary artery of cowlitz heart without angina pectoris 11/21/2015 02/21/2024 Overview [...] as of this encounter (statuses as of 07/20/2024) Immunizations Name Administration Dates Next Due COVID-19 mRNA, LNP-s, No Pre serve, 2-Dose Series (Moderna) 03/12/2021,09/10/2020,08/20/2020 COVID-19, LNP-s, No Preserve , Taran-sucrose, Ages 12+ (Pfizer) 12/30/2021 COVID-19, MRNA-LNP, 24-25, P R, 30MCG/0.3ML, IM, 12YRS AND ABOVE ([facility]) 02/22/2024 COVID-19, MRNA-LNP, PF, 30 M CG/0.3 mL, 12 YRS AND ABOVE, IM ([facility]) 06/16/2023 Covid-19, Mrna, Lnp-s, Pf, B ivalent, 30 Mcg, IM, 12 yrs and above (Liquidnet) 04/28/2022 H1N1 2009 Influenza, IM 07/08/2009 Hepatitis B, 20+ yrs 12/06/2014,06/15/2014,04/10 Pneumococcal Conjugate Vacc, 13 Valent (Prevnar) 02/21/2016 Pneumococcal Conjugate Vacci ne, 20-valent ([id number]) 02/18/2023 Pneumococcal Polysaccharide PPV23 (Pneumovax) 07/20/2003 RSV Vac., Bivalent, Perfusio n F, Pf,0.5 Ml (Abrysvo) 02/22/2024,06/16/2023 Season Influenza, Quad, PF, Adjuvanted, 65+ Yrs, IM (FLUAD) 03/07/2021 Seasonal Influenza Vac., MDV , IM, 0.5 mL (Fluzone) 03/21/2014,03/21/2013,02/23/2012,05/19,03/18/2010,03/15/2009,04/06/2008 ,03/07/2007,04/19/2006,04/02/2005,05/08,05/02/1999 Seasonal Influenza, High Dos e, Trivalent, PF, IM (Fluzone HD) 02/22/2024 Seasonal Influenza, PF, 6 M & above, IM , (FluLaval or Fluzone) 03/06/2022,02/24/2020,03/27/2019,05/03,03/02/2017 Seasonal Influenza, Quadriva lent Hd (Fluzone Hd) [...] standard drink = 0.6 oz pure alcohol) Eniramor: "as much as I can" 1/2 liter [...] No 04/04/2024 Does the household have a [facility] source of income? (Household - for ages [...] AM EDT documented as of this encounter Progress Notes * Aura Pulido, [facility] - 07/20/2024 10:58 AM EST Images from the original note were not included. Medication Therapy Disease Management - CSII Follow-up Interval History: Damon Hatfield is an 68 year old year old male returning [facility] for a diabetes insulin pump follow-up visit. Blood glucose control since last visit: stable Medication intolerance: no Medication compliance: yes Hospitalization or ED Utilization since last visit: no Hypoglycemia requiring assistance since last visit: no Current Diabetes Medications: Omnipod Insulin Pump Insulin: Novolog Basal Rate: 12 am -10 am: 2.1units/hour 10 am -7 pm: 2.75 units/hour 7 pm -9:30 pm: 1.90 9:30 pm-12 am: 2.1 units/hour Bolus Calculator: on and using ICR: 12am-10am: 1:3 10am-3pm: 1:1 3pm-12am: 1:2 ISF: 1:5 Blood Glucose Goal Limits: 70-150 Bolus Calculator: Target B pm to 10 am: 120 10 am to 7 pm: 110 Correct above: 120 Minimum B INCREASE: Active Insulin Time:2 hours [place] Blood Glucose Review: s (mg/dL) Hypoglycemia Assessment: 1. Do you know what the symptoms of hypoglycemia are? Yes 2. How often can you tell by your symptoms if your blood sugar is low? Always 3. In a typical week, how many times will your blood sugar go below 70 mg/dL? Never Patient Active Problem List Diagnosis Acquired hypothyroidism Gastroesophageal reflux disease with esophagitis without hemorrhage Dyslipidemia, goal LDL below 70 HTN, goal below 130/80 BPH with obstruction/lower urinary tract symptoms Alcohol dependence (HCC) Orthostatic hypotension Type 1 diabetes mellitus with hemoglobin A1c goal of less than 7.0% (HCC) Organic erectile dysfunction CHANTELL on CPAP Hypokalemia Absolute anemia MGUS (monoclonal gammopathy of unknown significance) Other iron deficiency anemias Mixed conductive and sensorineural hearing loss of left ear with restricted hearing of right ear Moderate persistent asthma without complication Ascending aorta dilatation (HCC) History of non-ST elevation myocardial infarction (NSTEMI) Chronic heart failure with preserved ejection fraction (HCC) Acquired absence of right hand Paroxysmal atrial fibrillation (HCC) Other specified disorders of arteries and arterioles (HCC) Stage 3a chronic kidney disease (HCC) Wound of right lower extremity Hypertensive heart and kidney disease with chronic diastolic congestive heart failure and stage 2 chronic kidney disease (HCC) Liver mass, left lobe Type 1 diabetes mellitus with stage 2 chronic kidney disease (HCC) History of amputation of finger, left Varicose veins of right lower extremity with both ulcer of other part of lower extremity and inflammation (CODE) (HCC) DM peripheral angiopathy (HCC) Ambulatory dysfunction Aortic atherosclerosis (HCC) Severe episode of recurrent major depressive disorder, without psychotic features (HCC) Alcohol dependence with unspecified alcohol-induced disorder (HCC) Type 2 diabetes mellitus with other skin ulcer (CODE) (HCC) 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 Glucose Blood In Vitro Strip Test 4 times a day E10.9 E10.42 100 Strip 11 CPAP every night at bedtime . Insulin Aspart 100 UNIT/ML Injection Solution (NovoLOG) Use up to 200 units daily via insulin pump E 11.9 90 mL 11 Insulin Syringe-Needle U-100 30G X 5/16" 1 ML (UltiCare Insulin Syringe) Use to administer novolog 10 Each 0 Nitroglycerin 0.4 MG Sublingual Tablet Sublingual (Nitrostat) Place 1 Tablet under the tongue as needed for Pain, Chest. May repeat 3 times. If chest pain continues, call 911. (Patient not taking: Reported on 06/29/2024) 25 Tablet 11 Acetaminophen 500 MG Oral Capsule Take 1 Capsule by mouth every 4 hours as needed. Clopidogrel Bisulfate 75 MG Oral Tablet (pLAVix) TAKE ONE TABLET BY MOUTH DAILY 90 Tablet 3 Metoprolol Succinate ER 25 MG Oral Tablet Extended Release 24 Hour (toPROL XL) Take 1 Tablet by mouth in the morning and 1 Tablet before bedtime. 180 Tablet 3 Gabapentin 300 MG Oral Capsule (Neurontin) TAKE 1 CAPSULE BY MOUTH THREE TIMES A DAY 270 Capsule 3 amLODIPine Besylate 5 MG Oral Tablet (Norvasc) TAKE 1 TABLET BY MOUTH DAILY. 90 Tablet 1 DIURETIC TITRATION PLAN Please take an additional dose of Lasix (40 mg) x 2 days. If no improvementon day 3, contact heart failure managing provider. 1 Each 0 Folic Acid 1 MG Oral Tablet TAKE ONE TABLET BY MOUTH DAILY 90 Tablet 3 Atorvastatin Calcium 40 MG Oral Tablet (Lipitor) TAKE ONE TABLET BY MOUTH DAILY 90 Tablet 1 Finasteride 5 MG Oral Tablet (Proscar) TAKE ONE TABLET BY MOUTH BEFORE BEDTIME 90 Tablet 2 Potassium Chloride Lorie ER 20 MEQ Oral Tablet Extended Release Take 1 Tablet by mouth in the morning and 1 Tablet before bedtime. 180 Tablet 3 Furosemide 40 MG Oral Tablet (Lasix) Take 1 Tablet by mouth 2 times a day in the morning and at noon. May also take 1 Tablet daily as needed (dyspnea or edema). 90 Tablet 3 Insulin Aspart 100 UNIT/ML Injection Solution (NovoLOG) INJECT UP TO 200 UNITS DAILY VIA INSULIN PUMP 180 mL 3 Venlafaxine HCl ER 150 MG Oral Capsule Extended Release 24 Hour (Effexor XR) Take 1 Capsule by mouth in the morning. 90 Capsule 1 Levothyroxine Sodium 125 MCG Oral Tablet (Levoxyl) TAKE 1 TABLET BY MOUTH DAILY (AT LEAST 30 MINUTES PRIOR TO BREAKFAST OR OTHER MEDS) 90 Tablet 3 Tamsulosin HCl 0.4 MG Oral Capsule (Flomax) TAKE ONE CAPSULE BY MOUTH DAILY 90 Capsule 1 CoQ10 200 MG Oral Capsule Take 200 mg by mouth in the morning. 2 caps daily . [facility] Oral Capsule Take by mouth daily. 2 capsules daily Losartan Potassium 50 MG Oral Tablet (Cozaar) Take 1 Tablet by mouth in the morning. 90 Tablet 3 cycloSPORINE 0.05 % Ophthalmic Emulsion (Restasis) Instill 1 Drop into the left eye in the morning and 1 Drop before bedtime. 180 Each 3 Omnipod 5 [id number] Pods Gen 5 Use 1 pod every 2 days 45 Each 3 Current Facility-Administered Medications Medication Dose Route Frequency Provider Last Rate Last Admin albuterol sulfate (PROVENTIL) (2.5 MG/3ML) 0.083% inhalation solution 2.5 mg 2.5 mg Nebulizer Q4H PRN Laila Bruce MD 2.5 mg at 10/23/22 0909 Objective: The ASCVD Risk score (Yury KLINE, et al., 2019) failed to calculate for the following reasons: Risk score cannot be calculated because patient has a medical history suggesting prior/existing ASCVD Estimated body mass index is 39.35 kg/m as calculated from the following: Height as of 03/28/24: 1.803 m (5' 10.98"). Weight as of 06/29/24: 127.9 kg (282 lb). BP Readings from Last 3 Encounters: 06/29/24 118/64 06/23/24 134/70 05/29/24 126/74 No components found for: "[id number]" No results found for: "MICROALBUMIN" Lab Results Component Value Date/Time LDL CHOLESTEROL (CALCULATED) - [facility] 73 06/23/2024 11:05 AM LDL CHOLESTEROL (CALCULATED) - [facility] 60 03/04/2020 10:23 AM LDL CHOLESTEROL (DIRECT MEASURE) - [facility] NOT APPLICABLE 03/04/2020 10:23 AM LDL CHOLESTEROL (DIRECT MEASURE) - [facility] 72 06/15/2017 11:26 AM Lab Results Component Value Date/Time ALT - [facility] 32 06/23/2024 11:05 AM ALT - [facility] 15 10/28/2018 10:44 AM ALTERNARIA IGE - [facility] <0.10 05/21/2020 02:59 PM Assessment & Plan: Glycemic control is stable but not at goal Patient agreeable to adjust medications as noted below. Basal settings continued as glucose is stable overnight and between meals. ICR/fixed dose continued as glucose is stable postprandially. ISF strengthened as glucose is not correcting to goal range. Patient to SMBG at least 4 times daily, before each meal and at bedtime. Patient aware to contact clinic if any hypoglycemia before next visit. Reviewed rule of 15s. Reviewed appropriate management of hyperglycemia as noted in pump start documentation. Diabetes Medications: Omnipod Insulin Pump Insulin: Novolog Basal Rate: 12 am -10 am: 2.1units/hour 10 am -7 pm: 2.75 units/hour 7 pm -9:30 pm: 1.90 9:30 pm-12 am: 2.1 units/hour Bolus Calculator: on and using ICR: 12am-10am: 1:3 10am-3pm: 1:1 3pm-12am: 1:2 INCREASE: ISF: 1:3 Blood Glucose Goal Limits: 70-150 Bolus Calculator: Target B pm to 10 am: 120 10 am to 7 pm: 110 Correct above: 120 Minimum B Active Insulin Time:2 hours Diabetes Health Maintenance: up-to-date Return to Clinic: 8 week(s) 09/28/2024 I spent a total of 40-54 minutes (exact time 45 mins) on the date of service in preparation, delivery, and documentation of the care provided to Damon Hatfield excluding any time spent in the performance of separately billed services or time spent by another provider/QHP. Auar Pulido RP Clinical Pharmacist Medication Therapy Disease Management 07/20/2024, 10:58 AM documented in this encounter Plan of Treatment Upcoming Encounters Date Type Department Care Team (Late st Contact Info) Description 07/21/2024 10:15 AM EST Scheduled Telephone [facility], [facility] [address] [place] [id number] Coordinator, [facility] [address] [place] [address] 07/25/2024 4:00 PM EST Home Visit [facility], [facility] [address] [place] [address] Hyacinth Gabriel RN [address] [place] [address] 08/21/2024 10:15 AM EDT Office Visit [facility] [address] [place] [address] Marquis Maldonado MD [address] [place] [address] 09/27/2024 9:20 AM EDT Office Visit Family Practice [facility] [address] [place] [address] Kathryn Zuleta CRNP [address] [place] [address] 09/28/2024 10:40 AM EDT Office Visit Pharmacy, [facility] [address] [place] [address] [facility] [address] [place] [address] 10/26/2024 11:00 AM EDT Laboratory Laboratory, [facility] [address] [place] [id number] Rebecca Burgess [facility] [address] [place] [address] 01/05/2025 11:00 AM EDT Office Visit Cardiology, [facility] [address] [facility] [place] [address] Elis Martinez CRNP [address] [place] [address] 02/06/2025 10:00 AM EDT Office Visit Family Practice [facility] [address] [facility] [place] [address] Farzad Hatfield DO [address] [facility] [place] [address] 05/21/2025 11:20 AM EST Office Visit Neurology [facility] [address] [facility] [place] [place] [address] Wayne Mishra MD [address] [facility] [place] [address] Health Maintenance Due Date Last Done Comments [...] Visit 03/28/2025 03/28/2024 CKD HGB USE SMARTSET 43112 06/23/202506/23, 06/23/2024, 04/28/2024, Additional history exists CKD PHOS USE SMARTSET 82113 06/23/202506/07, 01/28/2024, 12/01/2023, Additional history exists Albumin/Creatinine [...] Not on filedocumented as of this encounter Visit Diagnoses Diagnosis Chronic heart failure with preserved ejection fraction (HCC)- Primary Gastroesophageal reflux disease with esophagitis without hemorrhage 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 HTN, goal below 130/80 Unspecified essential hypertension Paroxysmal atrial fibrillation (HCC) Atrial fibrillation Moderate persistent asthma without complication Unspecified asthma Acquired hypothyroidism Unspecified hypothyroidism Type 1 diabetes mellitus with hemoglobin A1c goal of less than 7.0% (HCC) BPH with obstruction/lower urinary tract symptoms Hypertrophy of prostate with urinary obstruction and other lower urinary tract symptoms (LUTS) Fall, subsequent encounter Advanced care planning/counseling discussion Other specified counseling Chronic heart failure with preserved ejection fraction (HCC)- Primary 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 HTN, goal below 130/80 Unspecified essential hypertension Paroxysmal atrial fibrillation (HCC) Atrial fibrillation Moderate persistent asthma without complication Unspecified asthma Type 1 diabetes mellitus with hemoglobin A1c goal of less than 7.0% (HCC) Acquired hypothyroidism Unspecified hypothyroidism Wound of right lower extremity, subsequent encounter CHANTELL on CPAP- Primary Obstructive sleep apnea (adult) (pediatric) Chronic heart failure with preserved ejection fraction (HCC) Paroxysmal atrial fibrillation (HCC) Atrial fibrillation DM peripheral angiopathy (HCC) Type II or unspecified type diabetes mellitus with peripheral circulatory disorders, not stated as uncontrolled 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 COPD, moderate (HCC) Chronic airway obstruction, not elsewhere classified History of non-ST elevation myocardial infarction (NSTEMI) Old myocardial infarction Alcohol dependence with unspecified alcohol-induced disorder ([facility]) History of amputation of finger, left Ascending aorta dilatation ([facility]) Thoracic aortic ectasia Hypertensive heart and kidney disease with chronic diastolic congestive heart failure and stage 2 chronic kidney disease ([facility]) Ambulatory dysfunction Aortic atherosclerosis (HCC) Atherosclerosis of aorta Advanced care planning/counseling discussion Other specified counseling Type 1 diabetes mellitus with hemoglobin A1c goal of less than 7.0% ([facility])- Primary documented in this encounter Advance Directives * Full Code [...] Directives occurred with: Not Discussed Care Teams Charge Attendant Relationship Specialty Start Date End Date Farzad Hatfield DO [address] [place] [address] PCP - General Family Medicine 12/27/23 documented as of this encounter
--- OUTSIDE RECORDS SUMMARY | 2024-08-04 05:43 | External Medical Summary | Summary of Care ---
Author Name Unknown Organization [facility] Address [address] [facility] [place] [address] Phone [phone] Care Team Providers Care Limited Radiology Technician Name Role Phone Farzad Hatfield DO Primary Care Provider Encounter Details Date Type Department Care Team (Late st Contact Info) Description 07/20/2024 Telephone [facility], [facility] [address] [facility] [place] [address] Shaniqua Soria, CATHRYN [address] [facility] [place] [address] Allergies Active Allergy Reactions Criticality Noted Date [...] 10/30/19 Active Insulin Syringe-Needle U-100 30G X /" 1 ML (UltiCare Insulin Syringe) Use to administer novolog 10 Each 12/18/2022 5:23 PM EDT 12/18/19 Active Nitroglycerin 0.4 MG Sublingual Tablet Sublingual (Nitrostat)Indicat ions:Coronary artery disease involving [place] coronary artery of [place] heart without angina pectoris Place 1 Tablet [...] MG Oral TabletIndications: Coronary artery disease involving [place] coronary artery of [place] heart without angina pectoris TAKE ONE TABLET [...] PM EST 04/24/20 24 Active Omnipod 5 [id number] Pods Gen 5Indications:Type 1 diabetes mellitus with hyperglycemia (HCC) Use 1 pod every 2 days 45 Each 3 07/14/2024 12:38 PM EST 06/16/19 25 Active Hospital, Clinic, or Other Facility [...] skin ulcer ( CODE) 08/19/2023 Atherosclerosis of [place] co ronary artery without angina pectoris 08/19/2023 [...] in the Comments) Remote Patient [place]endor[place] [facility] [place](s): Connected Scale Self - Management Plan [...] hemoglobin A1c 6.3 02/26 -insulin pump per [facility] management Orthostatic hypotension 05/27/2016 Alcohol dependence 05/14/2016 [...] Glucocorticoid-LABA Combination Inhaler Remote Patient Monitoring Vendor: [facility] Device(s): Connected Scale Self-Management plan Other/Additional Comments: [...] minutes ambulation Coronary artery disease invo lving [place] coronary artery of [place] heart without angina pectoris 11/21/2015 02/21/2024 Overview [...] P R, 30MCG/0.3ML, IM, 12YRS AND ABOVE [facility] 02/22/2024 COVID-19, MRNA-LNP, PF, 30 M CG/0.3 mL, 12 YRS AND ABOVE, IM [facility]) 06/16/2023 Covid-19, Mrna, Lnp-s, Pf, B ivalent, 30 Mcg, IM, 12 yrs and above (Pfizer) 04/28/2022 H1N1 2009 Influenza, IM 07/08/2009 Hepatitis B, 20+ yrs 12/06/2014,06/15/2014,04/10 Pneumococcal Conjugate Vacc, 13 Valent (Prevnar) 02/21/2016 Pneumococcal Conjugate Vacci ne, 20-valent ([id number]) 02/18/2023 RSV Vac., Bivalent, Perfusio n F, [...] standard drink = 0.6 oz pure alcohol) [employer] Liquor: "as much as I can" 1/2 [...] Telephone Encounter - Shaniqua Soria LPN - 07/20/2024 10:01 AM EST Images from the original note were not included. [facility] Remote Patient Monitoring Able to contact patient: Trigger type: Abnormal reading(s): AMC (Advanced Monitored Caregiving): Scale: Baseline weight: 278 - 282 lbs Trigger weight: 284.3 lbs; weight increased 5.3 lbs in 1 day(s) Patient takes diuretic medication: Yes, reviewed current diuretic use: Name of medication: Lasix Dose: 80 mg Frequency: daily Symptom review: NONe Diet Reviewed: Yes. Patient has had any foods high in sodium: No Fluid Intake Reviewed: Yes. Patient is on a fluid restriction: Yes, restriction amount in milliliters or liters: 2l Adherent to restriction: Yes Self-Management Plan Reviewed: Red Flags: increased SOB, LE edema Risk assignment recommendation: Moderate risk findings (check as applicable): [] Moderate trigger priority on AMC [] Confirmed tympanic equivalent temperature 100.4-101.9 F one hour post administration of antipyretic [] Weight gain of 2.1-4.9 lbs over 1-2 days [] Confirmed new sustained resting HR greater than 105 WITHOUT symptoms [x] Weight gain of greater than or equal to 5 lbs in 5 days WITHOUT heart failure symptoms [] Confirmed new sustained resting HRT less than 60 WITHOUT symptoms [] Moderate heart failure symptoms [] Confirmed SBP less than 90 WITHOUT symptoms [] Moderate COPD symptoms [] Confirmed SBP greater than 170 WITHOUT symptoms [] Confirmed new SpO2 90-93% [] Confirmed DBP greater than 90 WITHOUT symptoms High risk findings (check as applicable): [] High trigger priority on AMC [] Confirmed tympanic equivalent temperature greater than or equal to 102 F on hour post administration of antipyretic [] Weight gain of greater than or equal to 5 lbs over 1-2 days [] Confirmed tympanic equivalent temperature less than 96 F [] Weight gain of greater than or equal to 5 lbs in 5 days WITH heart failure symptoms [] Confirmednew sustained resting HR greater than 105 WITH symptoms [] Severe heart failure symptoms [] Confirmed new sustained resting HR less than 60 WITH symptoms [] Severe COPD symptoms [] Confirmed SBP less than 90 WITH symptoms [] Confirmed new SpO2 less than 90% [] Confirmed SBP greater than 170 WITH symptoms [] Confirmed DBP greater than 90 WITH symptoms Additional risk selection justification: Spoke with pt., feels okay. Did not take meds yesterday. Reports there are some days he looses focus and gets distracted and/or unmotivated and does not take them. Is getting ready to take todays meds at time of the call. Admits that there are some days he does not weigh even though he knows he should for the same reason, anticipation that wt is up. Going for an echo today for clearance for a THR. Agreeable to PC 07/21. Emotional support provided Overall risk and identified plan: Moderate risk: Next day follow up call scheduled Route to RNCM (Registered Nurse Supervisor Fitting) and Advance Practitioner documented in this encounter Plan of Treatment Upcoming Encounters Date Type Department Care Team (Late st Contact Info) Description 07/20/2024 2:00 PM EST Cardiac Studies Cardiac Studies, [facility] [address] [place] [address] 07/21/2024 10:15 AM EST Scheduled Telephone [facility] [place], [facility] [address] [place] [address] Coordinator, [facility] [address] [place] [address] 07/25/2024 4:00 PM EST Home Visit [facility], [facility] [address] [place] [address] Hyacinth Gabriel RN [address] [place] [address] 08/21/2024 10:15 AM EDT Office Visit [facility] [address] [place] [address] Marquis Maldonado MD [address] [place] [address] 09/27/2024 9:20 AM EDT Office Visit Family Practice [facility] [address] [facility] [place] [address] Kathryn Zuleta CRNP [address] [place] [address] 09/28/2024 10:40 AM EDT Office Visit Pharmacy, [facility] [address] [facility] [place] [address] Aditya [facility] [address] [facility] [place] [address] 10/26/2024 11:00 AM EDT Laboratory Laboratory, [facility] [address] [facility] [place] [phone] Rebecca Burgess [address] [facility] [place] [address] 01/05/2025 11:00 AM EDT Office Visit Cardiology, [facility] [address] [place] [address] Elis Martinez CRNP [address] [place] [address] 02/06/2025 10:00 AM EDT Office Visit Family Practice [facility] [address] [place] [address] Farzad Hatfield DO [address] [place] [address] 05/21/2025 11:20 AM EST Office Visit Neurology [facility] [address] [facility] [place] [address] Wayne Mishra MD [address] [facility] [place] [address] Health Maintenance Due Date Last Done Comments [...] Visit 03/28/2025 03/28/2024 CKD HGB USE SMARTSET 20940 06/23/202506/23, 06/23/2024, 04/28/2024, Additional history exists CKD PHOS USE SMARTSET 83979 06/23/202506/07, 01/28/2024, 12/01/2023, Additional history exists Albumin/Creatinine [...] Directives occurred with: Not Discussed Care Teams Limited Radiology Technician Relationship Specialty Start Date End Date Farzad Hatfield DO [address] [place] [address] PCP - General Family Medicine 12/27/23 documented as of this encounter
--- OUTSIDE RECORDS SUMMARY | 2024-08-04 05:43 | External Medical Summary | Summary of Care ---
Author Name Unknown Organization [facility] Address [address] [place] [address] Phone [phone] Care Team Providers Care Casing Inspector Name Role Phone Farzad Hatfield DO Primary Care Provider Encounter Details Date Type Department Care Team (Late st Contact Info) Description 07/18/2024 Population Health External Data Unspecified Department Allergies Active Allergy Reactions Criticality Noted Date Comments Jose Manuel Inhibitors Cough Low 09/13/2009 documented as of this encounter (statuses as of 07/19/2024) Medications ASPIRIN 81 MG PO TABS 1 [...] mL 11 10/21/2023 10:07 AM EDT 10/30/19 23 Active Insulin Syringe-Needle U-100 30G X 5/16" 1 ML (UltiCare Insulin Syringe) Use to administer novolog 10 Each 12/18/2022 5:23 PM EDT 12/18/19 23 Active Nitroglycerin 0.4 MG Sublingual Tablet Sublingual (Nitrostat)Indicat ions:Coronary artery disease involving [place] coronary artery of [place] heart without angina pectoris Place 1 Tablet under the tongue as needed for Pain, Chest. May repeat 3 times. If chest pain continues, call 911. 25 Tablet 11 02/24/2023 4:41 PM EDT 02/19/20 23 Active Additional Information Patient not taking.Reported on [...] MG Oral TabletIndications: Coronary artery disease involving [place] coronary artery of [place] heart without angina pectoris TAKE ONE TABLET [...] PM EST 04/24/20 24 Active Omnipod 5 [id number] Pods Gen 5Indications:Type 1 diabetes mellitus with [...] as of this encounter (statuses as of 07/19/2024) Active Problems Problem Noted Date Diagnosed Date Morbid obesity with body mas s index (BMI) of 40.0 to 44.9 in adult 02/22/2024 Severe episode of recurrent major depressive disorder, without psychotic features 08/19/2023 Alcohol dependence with unsp ecified alcohol-induced disorder 08/19/2023 Type 2 diabetes mellitus with other skin ulcer ( CODE) 08/19/2023 Atherosclerosis of [place] co ronary artery without angina pectoris 08/19/2023 [...] in the Comments) Remote Patient Monitoring Vendor: [facility] [place] Device(s): Connected Scale Self - Management Plan [...] as of this encounter (statuses as of 07/19/2024) Resolved Problems Problem Noted Date Diagnosed Date [...] Glucocorticoid-LABA Combination Inhaler Remote Patient Monitoring Vendor: [facility] Device(s): FUJIAN HAIYUAN Scale Self-Management plan Other/Additional Comments: Use rescue [...] minutes ambulation Coronary artery disease invo lving [place] coronary artery of [place] heart without angina pectoris 11/21/2015 02/21/2024 Overview [...] as of this encounter (statuses as of 07/19/2024) Immunizations Name Administration Dates Next Due COVID-19 mRNA, LNP-s, No Pre serve, 2-Dose Series (Moderna) 03/12/2021,09/10/2020,08/20/2020 COVID-19, LNP-s, No Preserve , Taran-sucrose, Ages 12+ (Pfizer) 12/30/2021 COVID-19, MRNA-LNP, 24-25, P R, 30MCG/0.3ML, IM, 12YRS AND ABOVE ([facility]) 02/22/2024 COVID-19, MRNA-LNP, PF, 30 M CG/0.3 mL, 12 YRS AND ABOVE, IM (Acsis-ComirnatCodenomicon) 06/16/2023 Covid-19, Mrna, Lnp-s, Pf, B ivalent, 30 Mcg, IM, 12 yrs and above (Pfizer) 04/28/2022 H1N1 2009 Influenza, IM 07/08/2009 Hepatitis B, 20+ yrs 12/06/2014,06/15/2014,04/10 Pneumococcal Conjugate Vacc, 13 Valent (Prevnar) 02/21/2016 Pneumococcal Conjugate Vacci ne, 20-valent ([id number]) 02/18/2023 RSV Vac., Bivalent, Perfusio n F, [...] standard drink = 0.6 oz pure alcohol) [place] Liquor: "as much as I can" 1/2 [...] AM EDT documented as of this encounter Plan of Treatment Upcoming Encounters Date Type Department Care Team (Late st Contact Info) Description 07/20/2024 11:00 AM EST Office Visit Pharmacy, [address] [place] [address] [facility] [address] [facility] [place] [address] 07/20/2024 2:00 PM EST Cardiac Studies Cardiac Studies, [facility] [address] [facility] [place] [address] 07/25/2024 4:00 PM EST Home Visit [facility] [address] [facility] [place] [address] Hyacinth Gabriel RN [address] [facility] [place] [address] 08/21/2024 10:15 AM EDT Office Visit [facility] [address] [place] [address] Marquis Maldonado MD 16 [place] [address] 09/27/2024 9:20 AM EDT Office Visit Family Practice [facility] [address] [facility] [place] [address] Kathryn Zuleta CRNP [address] [place] [address] 10/26/2024 11:00 AM EDT Laboratory Laboratory, [facility] [address] [facility] [place] [phone] [facility] [address] [facility] [place] [address] 01/05/2025 11:00 AM EDT Office Visit Cardiology, [facility] [address] [facility] [place] [address] Elis Martinez CRNP [address] [facility] [place] [address] 02/06/2025 10:00 AM EDT Office Visit Family Practice [facility] [address] [facility] [place] [address] Farzad Hatfield DO [address] [facility] [place] [address] 05/21/2025 11:20 AM EST Office Visit [facility] [address] [facility] [place] [address] Wayne Mishra MD 200 [facility] [place], [place] [address] Health Maintenance Due Date Last Done Comments [...] Visit 03/28/2025 03/28/2024 CKD HGB USE SMARTSET 57242 06/23/202506/23, 06/23/2024, 04/28/2024, Additional history exists CKD PHOS USE SMARTSET 03653 06/23/202506/07, 01/28/2024, 12/01/2023, Additional history exists Albumin/Creatinine [...] Directives occurred with: Not Discussed Care Teams Casing Inspector Relationship Specialty Start Date End Date Farzad Hatfield DO [address] [place] [address] PCP - General Family Medicine 12/27/23 documented as of this encounter
--- OUTSIDE RECORDS SUMMARY | 2024-08-04 05:43 | External Medical Summary | Summary of Care ---
Author Name Unknown Organization [facility] Address [address] [place] [address] Phone [phone] Care Team Providers Care Golf Course Laborer Name Role Phone Farzad Hatfield DO Primary Care Provider Reason for Visit * Reason Comments Dosage Adjustment In Person (Anticoag Cl inic) Diabetes Follow-Up Encounter Details Date Type Department Care Team (Late st Contact Info) Description 07/20/2024 11:00 AM EST Office Visit Pharmacy, [facility] 132 [facility] [place] [address] [facility] [address] [place] [address] Type 1 diabetes mellitus with hemoglobin A1c goal of less than 7.0% ([facility])* Allergies Active Allergy Reactions Criticality Noted Date [...] Tablet Sublingual (Nitrostat)Indicat ions:Coronary artery disease involving [place] coronary artery of [place] heart without angina pectoris Place 1 Tablet [...] MG Oral TabletIndications: Coronary artery disease involving [place] coronary artery of [place] heart without angina pectoris TAKE ONE TABLET [...] PM EST 04/24/20 24 Active Omnipod 5 [id number] Pods Gen 5Indications:Type 1 diabetes mellitus with [...] skin ulcer ( CODE) 08/19/2023 Atherosclerosis of [place] co ronary artery without angina pectoris 08/19/2023 [...] in the Comments) Remote Patient Monitoring Vendor: [facility] [place] Device(s): Connected Scale Self - Management Plan [...] hemoglobin A1c 6.3 02/26 -insulin pump per [facility] management Orthostatic hypotension 05/27/2016 Alcohol dependence [...] Glucocorticoid-LABA Combination Inhaler Remote Patient Monitoring Vendor: [facility] [place] Device(s): [email or web address] Scale Self-Management plan Other/Additional Comments: Use rescue [...] minutes ambulation Coronary artery disease invo lving [place] coronary artery of [place] heart without angina pectoris 11/21/2015 02/21/2024 Overview [...] P R, 30MCG/0.3ML, IM, 12YRS AND ABOVE ([facility]) 02/22/2024 COVID-19, MRNA-LNP, PF, 30 M CG/0.3 mL, 12 YRS AND ABOVE, IM ([facility]) 06/16/2023 Covid-19, Mrna, Lnp-s, Pf, B ivalent, 30 Mcg, IM, 12 yrs and above (Tablo) 04/28/2022 H1N1 2009 Influenza, IM 07/08/2009 Hepatitis B, 20+ yrs 12/06/2014,06/15/2014,04/10 Pneumococcal Conjugate Vacc, 13 Valent (Prevnar) 02/21/2016 Pneumococcal Conjugate Vacci ne, 20-valent ([id number]) 02/18/2023 Pneumococcal Polysaccharide PPV23 (Pneumovax) 07/20/2003 RSV [...] standard drink = 0.6 oz pure alcohol) [employer] System[employer]: "as much as I can" 1/2 liter [...] No 04/04/2024 Does the household have a unm psychiatric centerlar source of income? 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 180 Each 3 Omnipod 5 KbuY0T2 Pods Gen 5 Use 1 pod every [...] 134/70 05/29/24 126/74 No components found for: "[id number]" No results found for: "MICROALBUMIN" Lab Results [...] services or time spent by another provider/QHP. Aura Pulido RP Clinical Pharmacist Medication Therapy Disease Management 07/20/2024, 10:58 AM documented in this encounter Plan of Treatment Upcoming Encounters Date Type Department Care Team (Late st Contact Info) Description 07/21/2024 10:15 AM EST Scheduled Telephone [facility], [facility] [address] [place] [address] Coordinator, [facility] [address] [place] [address] 07/25/2024 4:00 PM EST Home Visit [facility], [facility] [address] [place] [address] Hyacinth Gabriel RN [address] [place] [address] 08/21/2024 10:15 AM EDT Office Visit [facility] [address] [place] [address] Marquis Maldonado MD 16 [place] [address] 09/27/2024 9:20 AM EDT Office Visit Family Practice [facility] [address] [place] [address] Kathryn Zuleta CRNP [address] [place] [address] 09/28/2024 10:40 AM EDT Office Visit Pharmacy, [facility] [address] [place] [address] Aditya [facility] [address] [place] [address] 10/26/2024 11:00 AM EDT Laboratory Laboratory, [facility] [address] [place] [phone] Rebecca Burgess [facility] [address] [place] [address] 01/05/2025 11:00 AM EDT Office Visit Cardiology, [facility] 132 [facility] [place] [address] Elis Martinez CRNP [address] [place] [address] 02/06/2025 10:00 AM EDT Office Visit Family Practice [facility] [address] [facility] [place] [address] Farzad Hatfeild DO 132 [facility] [place] [address] 05/21/2025 11:20 AM EST Office Visit Neu[facility] 200 [place] [address] Wayne Mishra MD [address] [facility] [place] [address] Health Maintenance Due Date Last Done Comments [...] Visit 03/28/2025 03/28/2024 CKD HGB USE SMARTSET 00807 06/23/202506/23, 06/23/2024, 04/28/2024, Additional history exists CKD PHOS USE SMARTSET 78245 06/23/202506/07, 01/28/2024, 12/01/2023, Additional history exists Albumin/Creatinine [...] esophagitis without hemorrhage Coronary artery disease involving [place] coronary artery of [place] heart without angina pectoris HTN, goal below [...] fraction (HCC)- Primary Coronary artery disease involving [place] coronary artery of [place] heart without angina pectoris HTN, goal below [...] stated as uncontrolled Coronary artery disease involving [place] coronary artery of [place] heart without angina pectoris COPD, moderate (HCC) Chronic airway obstruction, not elsewhere classified History of non-ST elevation myocardial infarction (NSTEMI) Old myocardial infarction Alcohol dependence with unspecified alcohol-induced disorder ([facility]) History of amputation of finger, left Ascending aorta dilatation ([facility]) Thoracic aortic ectasia Hypertensive heart and kidney disease with chronic diastolic congestive heart failure and stage 2 chronic kidney disease ([facility]) Ambulatory dysfunction Aortic atherosclerosis (HCC) Atherosclerosis of aorta Advanced care planning/counseling discussion Other specified counseling Type 1 diabetes mellitus with hemoglobin A1c goal of less than 7.0% ([facility])- Primary documented in this encounter Advance Directives [...] Directives occurred with: Not Discussed Care Teams Golf Course Laborer Relationship Specialty Start Date End Date Farzad Hatfield DO [address] [place] [address] PCP - General Family Medicine 12/27/23 documented as of this encounter
--- OUTSIDE RECORDS SUMMARY | 2024-08-04 05:43 | External Medical Summary | Summary of Care ---
Author Name Unknown Organization [facility] Address [address] [place] [address] Phone [phone] Care Team Providers Care Heel Former Name Role Phone Farzad Hatfield DO Primary Care Provider Reason for Visit * Reason Onset Date Comments Health Maintenance 07/17/2024 Encounter Details Date Type Department Care Team (Late st Contact Info) Description 07/17/2024 Telephone Family Practice [facility] [address] [place] [address] Farzad Hatfield DO [address] [place] [address] Health Maintenance Allergies Active Allergy Reactions Criticality Noted Date Comments Jose Manuel Inhibitors Cough Low 09/13/2009 documented as of this encounter (statuses as of 07/17/2024) Medications ASPIRIN 81 MG PO TABS 1 [...] Tablet Sublingual (Nitrostat)Indicat ions:Coronary artery disease involving [place] coronary artery of [place] heart without angina pectoris Place 1 Tablet [...] MG Oral TabletIndications: Coronary artery disease involving [place] coronary artery of [place] heart without angina pectoris TAKE ONE TABLET [...] PM EST 04/24/20 24 Active Omnipod 5 [id number] Pods Gen 5Indications:Type 1 diabetes mellitus with [...] as of this encounter (statuses as of 07/17/2024) Active Problems Problem Noted Date Diagnosed Date Morbid obesity with body mas s index (BMI) of 40.0 to 44.9 in adult 02/22/2024 Severe episode of recurrent major depressive disorder, without psychotic features 08/19/2023 Alcohol dependence with unsp ecified alcohol-induced disorder 08/19/2023 Type 2 diabetes mellitus with other skin ulcer ( CODE) 08/19/2023 Atherosclerosis of [place] co ronary artery without angina pectoris 08/19/2023 [...] in the Comments) Remote Patient Monitoring Vendor: [facility] Device(s): Connected Scale Self - Management Plan [...] hemoglobin A1c 6.3 02/26 -insulin pump per MTM management Orthostatic hypotension 05/27/2016 Alcohol dependence 05/14/2016 [...] as of this encounter (statuses as of 07/17/2024) Resolved Problems Problem Noted Date Diagnosed Date [...] Glucocorticoid-LABA Combination Inhaler Remote Patient Monitoring Vendor: [facility] Device(s): Connected Scale Self-Management plan Other/Additional Comments: [...] minutes ambulation Coronary artery disease invo lving [place] coronary artery of [place] heart without angina pectoris 11/21/2015 02/21/2024 Overview [...] as of this encounter (statuses as of 07/17/2024) Immunizations Name Administration Dates Next Due COVID-19 mRNA, LNP-s, No Pre serve, 2-Dose Series (Moderna) 03/12/2021,09/10/2020,08/20/2020 COVID-19, LNP-s, No Preserve , Taran-sucrose, Ages 12+ (Pfizer) 12/30/2021 COVID-19, MRNA-LNP, 24-25, P R, 30MCG/0.3ML, IM, 12YRS AND ABOVE ([facility]) 02/22/2024 COVID-19, MRNA-LNP, PF, 30 M CG/0.3 mL, 12 YRS AND ABOVE, IM ([facility]) 06/16/2023 Covid-19, Mrna, Lnp-s, Pf, B ivalent, 30 Mcg, IM, 12 yrs and above ([employer] 04/28/2022 H1N1 2009 Influenza, IM 07/08/2009 Hepatitis B, 20+ yrs 12/06/2014,06/15/2014,04/10 Pneumococcal Conjugate Vacc, 13 Valent (Prevnar) 02/21/2016 Pneumococcal Conjugate Vacci ne, 20-valent ([id number]) 02/18/2023 RSV Vac., Bivalent, Perfusio n F, [...] standard drink = 0.6 oz pure alcohol) XtremIO Liquor: "as much as I can" 1/2 [...] encounter Miscellaneous Notes * Telephone Encounter - Anna TaylorCATHRYN - 07/17/2024 9:14 AM EST Care Gaps Comprehensive Care Outreach Last Office/Telemedicine Visit: 06/23/2024 (in office), 11/17/2022 (telemedicine) Next Office Visit: 09/27/2024 Hemoglobin AIC Results: Lab Results Component Value Date/Time HEMOGLOBIN A1C - [facility] 7.4 (H) 06/23/2024 11:05 AM HEMOGLOBIN A1C - [facility] 8.5 (H) 02/08/2024 10:23 AM HEMOGLOBIN A1C - [facility] 9.7 (H) 10/18/2023 03:04 PM HEMOGLOBIN A1C - [facility] 9.3 (H) 03/04/2020 10:23 AM HEMOGLOBIN A1C - [facility] 8.4 (H) 12/14/2019 09:41 AM HEMOGLOBIN A1C - [facility] 9.5 (H) 03/29/2019 11:40 AM HEMOGLOBIN A1C POCT - [facility] 7.4 (H) 05/18/2024 11:05 AM BP Readings from Last 1 Encounters: 06/29/24 118/64 Reviewed Health Maintenance below: Health Maintenance Topic Date Due Depression Monitoring 02/28/2021 AAA Screening Never done COVID-19 Vaccine ( season) 2024 TSH 11/30/2024 HbA1c 12/21/2024 Aaa Care Gap Outreach Action Taken: Left message documented in this encounter Plan of Treatment Upcoming Encounters Date Type Department Care Team (Late st Contact Info) Description 07/20/2024 11:00 AM EST Office Visit Pharmacy, [facility] 132 [facility] [place] [address] [place] [address] [facility] [place] [address] 07/20/2024 2:00 PM EST Cardiac Studies Cardiac Studies, [facility] 132 [facility] [place] [address] 07/25/2024 4:00 PM EST Home Visit [facility] [address] [facility] [place] [address] Hyacinth Gabriel, KATINA [address] [facility] [place] [address] 08/21/2024 10:15 AM EDT Office Visit [facility] [address] [place] [address] Marquis Maldonado MD [address] [place] [address] 09/27/2024 9:20 AM EDT Office Visit Family Practice [facility] [address] [place] [address] Kathryn Zuleta CRNP 132 [facility] [place] [address] 10/26/2024 11:00 AM EDT Laboratory Laboratory, [facility] 132 [facility] [place] [address] Rebecca [facility]ess [facility] 132 [facility] [place] [address] 01/05/2025 11:00 AM EDT Office Visit Cardiology, [facility] 132 [facility] [place] [address] Elis Martinez, ARMIDA [address] [place] [address] 02/06/2025 10:00 AM EDT Office Visit Family Practice [facility] 132 [facility] [place] [address] Farzad Hatfield DO 132 [facility] [place] [address] 05/21/2025 11:20 AM EST Office Visit Neurology [facility] 200 [facility] [place] [address] Wayne Mishra MD [address] [place] [address] Health Maintenance Due Date Last Done Comments [...] Visit 03/28/2025 03/28/2024 CKD HGB USE SMARTSET 00238 06/23/202506/23, 06/23/2024, 04/28/2024, Additional history exists CKD PHOS USE SMARTSET 14755 06/23/202506/07, 01/28/2024, 12/01/2023, Additional history exists Albumin/Creatinine [...] Directives occurred with: Not Discussed Care Teams Heel Former Relationship Specialty Start Date End Date Farzad Hatfield DO [address] [place] [address] PCP - General Family Medicine 12/27/23 documented as of this encounter
--- OUTSIDE RECORDS SUMMARY | 2024-08-04 05:43 | External Medical Summary | Summary of Care ---
Author Name Unknown Organization [facility] Address [address] [place] [address] Phone [phone] Care Team Providers Care [employer] Teacher Name Role Phone Farzad Hatfield DO Primary Care Provider Reason for Visit * Reason Onset Date Comments [facility]: Maintenance 07/21/2024 Encounter Details Date Type Department Care Team (Late st Contact Info) Description 07/21/2024 10:15 AM EST Scheduled Telephone [facility], [facility] 132 [facility] [place] [address] Coordinator, [facility] [address] [place] [address] Allergies Active Allergy Reactions Criticality Noted Date Comments Jose Manuel Inhibitors Cough Low 09/13/2009 documented as of this encounter (statuses as of 07/21/2024) Medications ASPIRIN 81 MG PO TABS 1 [...] Tablet Sublingual (Nitrostat)Indicat ions:Coronary artery disease involving [place] coronary artery of [place] heart without angina pectoris Place 1 Tablet [...] MG Oral TabletIndications: Coronary artery disease involving [place] coronary artery of [place] heart without angina pectoris TAKE ONE TABLET [...] PM EST 04/24/20 24 Active Omnipod 5 [id number] Pods Gen 5Indications:Type 1 diabetes mellitus with [...] as of this encounter (statuses as of 07/21/2024) Active Problems Problem Noted Date Diagnosed Date Morbid obesity with body mas s index (BMI) of 40.0 to 44.9 in adult 02/22/2024 Severe episode of recurrent major depressive disorder, without psychotic features 08/19/2023 Alcohol dependence with unsp ecified alcohol-induced disorder 08/19/2023 Type 2 diabetes mellitus with other skin ulcer ( CODE) 08/19/2023 Atherosclerosis of [place] co ronary artery without angina pectoris 08/19/2023 [...] in the Comments) Remote Patient Monitoring Vendor: [facility] Device(s): Connected Scale Self - Management Plan [...] Steven Therapy: Metoprolol Succinate (ER) o JOSE AMNUEL Inhibitor/ARB Therapy: Losartan o Diuretic therapy: Lasix [...] as of this encounter (statuses as of 07/21/2024) Resolved Problems Problem Noted Date Diagnosed Date [...] Glucocorticoid-LABA Combination Inhaler Remote Patient Monitoring Vendor: [facility] Device(s): Connected Scale Self-Management plan Other/Additional Comments: [...] minutes ambulation Coronary artery disease invo lving [place] coronary artery of [place] heart without angina pectoris 11/21/2015 02/21/2024 Overview [...] as of this encounter (statuses as of 07/21/2024) Immunizations Name Administration Dates Next Due COVID-19 mRNA, LNP-s, No Pre serve, 2-Dose Series (Moderna) 03/12/2021,09/10/2020,08/20/2020 COVID-19, LNP-s, No Preserve , Taran-sucrose, Ages 12+ (Pfizer) 12/30/2021 COVID-19, MRNA-LNP, 24-25, P R, 30MCG/0.3ML, IM, 12YRS AND ABOVE ([facility]) 02/22/2024 COVID-19, MRNA-LNP, PF, 30 M CG/0.3 mL, 12 YRS AND ABOVE, IM ([employer]) 06/16/2023 Covid-19, Mrna, Lnp-s, Pf, B ivalent, 30 Mcg, IM, 12 yrs and above ([facility]) 04/28/2022 H1N1 2009 Influenza, IM 07/08/2009 Hepatitis B, 20+ yrs 12/06/2014,06/15/2014,04/10 Pneumococcal Conjugate Vacc, 13 Valent (Prevnar) 02/21/2016 Pneumococcal Conjugate Vacci ne, 20-valent ([id number]) 02/18/2023 RSV Vac., Bivalent, Perfusio n F, [...] standard drink = 0.6 oz pure alcohol) Tvinci Liquor: "as much as I can" 1/2 [...] encounter Miscellaneous Notes * Telephone Encounter - Afshan Acosta LPN - 07/21/2024 10:19 AM EST Images from the original note were not included. [facility] Telephonic Nurse Follow-Up Call [facility] Subprogram: Focused Care Management (3-9 months) Follow Up Call Type: 24 hour follow up Acute issue requiring follow-up call: Remote Patient [...] kg/m2 Remote Patient Monitoring: Current Health Device: wt not recorded Oxygen Needs: NO CHANGE from baseline supplemental oxygen needs DME Needs: NO DME needs identified Medications: No medication or dose adjustments made during acute episode Subjective: Condition Status: [facility] Current Concerns: Called pt to F/U on CH wt trigger from 07/20 no answer LMOM to return call. No wt recorded today. Disposition: Routed to [facility] and/or [facility] Care Team for further advice and Weekend call scheduled Future Visits Scheduled: Future Appointments-next 60 days Date/Time Provider Specialty Dept Phone 07/25/2024 4:00 PM Hyacinth Gabriel, KATINA [facility] [phone] 08/21/2024 10:15 AM Marquis Maldonado MD Ophthalmology [phone] 09/27/2024 9:20 AM (Arrive by 9:05 AM) Kathryn Zuleta CRNP [facility] [phone] 09/28/2024 10:40 AM Aditya [facility] [phone] 10/26/2024 11:00 AM Aditya [facility] Laboratory [phone] 01/05/2025 11:00 AM (Arrive by 10:45 AM) Elis Martinez CRNP Cardiology [phone] 02/06/2025 10:00 AM (Arrive by 9:45 AM) Farzad Hatfield DO Family [facility] [phone] 05/21/2025 11:20 AM (Arrive by 11:05 AM) Wayne Mishra MD Neurology [phone] Afshan Acosta LPN documented in this encounter Plan of Treatment Upcoming Encounters Date Type Department Care Team (Late st Contact Info) Description 07/22/2024 10:45 AM EST Scheduled Telephone [facility] [place], [address] [place] [address] [facility], Nurse [address] [place] [address] 07/25/2024 4:00 PM EST Home Visit [facility] 132 [facility] [place] [address] Hyacinth Gabriel RN [facility] [place] [address] 08/21/2024 10:15 AM EDT Office Visit [facility] [address] [place] [address] Marquis Maldonado MD 16 [place] [address] 09/27/2024 9:20 AM EDT Office Visit Family Practice [facility] 132 [facility] [place] [address] Kathryn [facility]uleta CRNP [facility] [address] 09/28/2024 10:40 AM EDT Office Visit Pharmacy, [facility] [address] [facility] [address] 10/26/2024 11:00 AM EDT Laboratory Laboratory, [facility] 132 [facility] [place] [id number] [facility] [place] [address] 01/05/2025 11:00 AM EDT Office Visit Cardiology, [facility] 132 [facility] [place] [address] Elis Martinez CRNP [address] [place] [address] [place] [address] 02/06/2025 10:00 AM EDT Office Visit Family Practice [facility] [address] [place] [address] Farzad Hatfield DO [address] [place] [address] 05/21/2025 11:20 AM EST Office Visit Neurology [facility] 200 [facility] [place] [address] Wayne Mishra MD 200 [facility] [place] [address] Health Maintenance Due Date Last Done Comments [...] Visit 03/28/2025 03/28/2024 CKD HGB USE SMARTSET 44052 06/23/202506/23, 06/23/2024, 04/28/2024, Additional history exists CKD PHOS USE SMARTSET 65143 06/23/202506/07, 01/28/2024, 12/01/2023, Additional history exists Albumin/Creatinine [...] Directives occurred with: Not Discussed Care Teams [employer] Science Teacher Relationship Specialty Start Date End Date Farzad Hatfield DO [address] [place] [address] PCP - General Family Medicine 12/27/23 documented as of this encounter
--- OUTSIDE RECORDS SUMMARY | 2024-08-04 05:44 | External Medical Summary | Summary of Care ---
Author Name Unknown Organization [facility] Address [address] [place] [address] Phone [phone] Care Team Providers Care [employer] Name Role Phone Farzad Hatfield DO Primary Care Provider Encounter Details Date Type Department Care Team (Late st Contact Info) Description 07/15/2024 Orders Only PATIENT PORTAL DO NOT DELETE THIS DEPT USED BY [place] [address] Allergies Active Allergy Reactions Criticality Noted Date Comments Jose Manuel Inhibitors Cough Low 09/13/2009 documented as of this encounter (statuses as of 07/15/2024) Medications ASPIRIN 81 MG PO TABS 1 [...] 23 Active Insulin Syringe-Needle U-100 30G X 16" 1 ML ([employer]iCare Insulin Syringe) Use to administer novolog 10 Each 12/18/2022 5:23 PM EDT 12/18/19 Active Nitroglycerin 0.4 MG Sublingual Tablet Sublingual (Nitrostat)Indicat ions:Coronary artery disease involving [place] coronary artery of [place] heart without angina pectoris Place 1 Tablet [...] MG Oral TabletIndications: Coronary artery disease involving [place] coronary artery of [place] heart without angina pectoris TAKE ONE TABLET [...] PM EST 04/24/20 24 Active Omnipod 5 [id number] Pods Gen 5Indications:Type 1 diabetes mellitus with [...] as of this encounter (statuses as of 07/15/2024) Active Problems Problem Noted Date Diagnosed Date Morbid obesity with body mas s index (BMI) of 40.0 to 44.9 in adult 02/22/2024 Severe episode of recurrent major depressive disorder, without psychotic features 08/19/2023 Alcohol dependence with unsp ecified alcohol-induced disorder 08/19/2023 Type 2 diabetes mellitus with other skin ulcer ( CODE) 08/19/2023 Atherosclerosis of [place] co ronary artery without angina pectoris 08/19/2023 [...] in the Comments) Remote Patient Monitoring Vendor: [facility] Device(s): Connected Scale Self - Management Plan [...] as of this encounter (statuses as of 07/15/2024) Resolved Problems Problem Noted Date Diagnosed Date [...] Glucocorticoid-LABA Combination Inhaler Remote Patient Monitoring Vendor: [facility] Device(s): Connected Scale Self-Management plan Other/Additional Comments: [...] minutes ambulation Coronary artery disease invo lving [place] coronary artery of [place] heart without angina pectoris 11/21/2015 02/21/2024 Overview [...] as of this encounter (statuses as of 07/15/2024) Immunizations Name Administration Dates Next Due COVID-19 mRNA, LNP-s, No Pre serve, 2-Dose Series (Moderna) 03/12/2021,09/10/2020,08/20/2020 COVID-19, LNP-s, No Preserve , Taran-sucrose, Ages 12+ (Pfizer) 12/30/2021 COVID-19, MRNA-LNP, 24-25, P R, 30MCG/0.3ML, IM, 12YRS AND ABOVE ([facility]) 02/22/2024 COVID-19, MRNA-LNP, PF, 30 M CG/0.3 mL, 12 YRS AND ABOVE, IM ([facility]) 06/16/2023 Covid-19, Mrna, Lnp-s, Pf, B ivalent, 30 Mcg, IM, 12 yrs and above (Pfizer) 04/28/2022 H1N1 2009 Influenza, IM 07/08/2009 Hepatitis B, 20+ yrs 12/06/2014,06/15/2014,04/10 Pneumococcal Conjugate Vacc, 13 Valent (Prevnar) 02/21/2016 Pneumococcal Conjugate Vacci ne, 20-valent ([id number]) 02/18/2023 RSV Vac., Bivalent, Perfusio n F, [...] standard drink = 0.6 oz pure alcohol) [place] Liquor: "as much as I can" 1/2 [...] 07/20/2024 11:00 AM EST Office Visit Pharmacy, [facility] 132 [facility] [place] [address] [facility] [address] [place] [address] 07/20/2024 2:00 PM EST Cardiac Studies Cardiac Studies, [facility] 132 [facility] [place] [address] 07/25/2024 4:00 PM EST Home Visit [facility] 132 [facility] [place] [address] Hyacinth Gabriel, KATINA 132 [facility] [place] [address] 08/21/2024 10:15 AM EDT Office Visit [facility] 16 [facility] [place] [address] Marquis Maldonado MD 16 [facility] [place] [address] 09/27/2024 9:20 AM EDT Office Visit [facility] 132 [place] [address] Kathryn Zuleta CRNP 132 [facility] [place] [address] 10/26/2024 11:00 AM EDT Laboratory Laboratory, [facility] [address] [place] [id number] [facility] [address] [place] [address] 01/05/2025 11:00 AM EDT Office Visit Cardiology, [facility] [address] [place] [address] Elis Martinez CRNP [address] [place] [address] 02/06/2025 10:00 AM EDT Office Visit [facility] [address] [place] [address] Farzad Hatfield DO 132 [place] [address] 05/21/2025 11:20 AM EST Office Visit Neurology [facility] 200 [facility] [place], [place] [address] Wayne Mishra MD 200 [facility] [place] [address] Health Maintenance Due Date Last Done Comments Cologuard 2002 Fecal Occult Blood Test 2002 Sigmoidoscopy 2002 Depression Monitoring 02/28/2021 02/29/2020 AAA Screening 2022 COVID-19 Vaccine ( season) 2024 02/22/2024, 06/16/2023, 04/28/2022, Additional history exists TSH 11/30/2024 12/01/2023, 0306/2022, 04/28/2022, Additional history exists HbA1c 12/21/2024 06/23/2024, 05/07, 02/08/2024, Additional history exists GFR 01/07/2025 07/10/2024, 06/07, 04/28/2024, Additional history exists Diabetic Foot Exam 02/21/2025 02/22/2024, 0 10/27/2021, 12/28/2019, Additional history exists Diabetic Eye Exam 02/23/2025 02/24/2024, , 08/20/2023, Additional history exists Adult Wellness Visit 03/28/2025 03/28/2024 CKD HGB USE SMARTSET 21320 06/23/202506/23, 06/23/2024, 04/28/2024, Additional history exists CKD PHOS USE SMARTSET 14445 06/23/202506/07, 01/28/2024, 12/01/2023, Additional history exists Albumin/Creatinine [...] Directives occurred with: Not Discussed Care Teams [employer] Relationship Specialty Start Date End Date Farzad Hatfield DO [address] [place] [address] PCP - General Family Medicine 12/27/23 documented as of this encounter
--- OUTSIDE RECORDS SUMMARY | 2024-08-04 05:44 | External Medical Summary | Summary of Care ---
Author Name Unknown Organization [facility] Address [address] [place] [address] Phone [phone] Care Team Providers Care Layout Former Name Role Phone Farzad Hatfield DO Primary Care Provider Reason for Visit * Reason Onset Date Comments Information 07/10/2024 Encounter Details Date Type Department Care Team (Late st Contact Info) Description 07/10/2024 Telephone Cardiology, [facility] [address] [place] [address] Elis Martinez CRNP [address] [facility] [place] [address] Information Allergies Active Allergy Reactions Criticality Noted Date Comments Jose Manuel Inhibitors Cough Low 09/13/2009 documented as of this encounter (statuses as of 07/12/2024) Medications ASPIRIN 81 MG PO TABS 1 [...] Tablet Sublingual (Nitrostat)Indicat ions:Coronary artery disease involving nez perce coronary artery of nez perce heart without angina pectoris Place 1 Tablet [...] MG Oral TabletIndications: Coronary artery disease involving nez perce coronary artery of nez perce heart without angina pectoris TAKE ONE TABLET [...] PM EST 04/24/20 24 Active Omnipod 5 [id number] Pods Gen 5Indications:Type 1 diabetes mellitus with hyperglycemia (HCC) Use 1 pod every 2 days 45 Each 3 06/16/19 25 Active Hospital, Clinic, or Other Facility Administered Medication Ordered Dose Route Frequency Start Date End Date Status albuterol sulfate (PROVENTIL) (2.5 MG/3ML) 0.083% inhalation solution 2.5 mgIndications:SOB (shortness of breath) 2.5 mg NEBULIZER Q4H PRN 03/28/2019 Act yana documented as of this encounter (statuses as of 07/12/2024) Active Problems Problem Noted Date Diagnosed Date Morbid obesity with body mas s index (BMI) of 40.0 to 44.9 in adult 02/22/2024 Severe episode of recurrent major depressive disorder, without psychotic features 08/19/2023 Alcohol dependence with unsp ecified alcohol-induced disorder 08/19/2023 Type 2 diabetes mellitus with other skin ulcer ( CODE) 08/19/2023 Atherosclerosis of nez perce co ronary artery without angina pectoris 08/19/2023 [...] in the Comments) Remote Patient Monitoring Vendor: [facility] Device(s): Connected Scale Self - Management Plan [...] hemoglobin A1c 6.3 02/26 -insulin pump per [facility] management Orthostatic hypotension 05/27/2016 Alcohol dependence 05/14/2016 [...] as of this encounter (statuses as of 07/12/2024) Resolved Problems Problem Noted Date Diagnosed Date [...] Glucocorticoid-LABA Combination Inhaler Remote Patient Monitoring Vendor: [facility] Device(s): Connected Scale Self-Management plan Other/Additional Comments: [...] minutes ambulation Coronary artery disease invo lving nez perce coronary artery of nez perce heart without angina pectoris 11/21/2015 02/21/2024 Overview [...] as of this encounter (statuses as of 07/12/2024) Immunizations Name Administration Dates Next Due COVID-19 mRNA, LNP-s, No Pre serve, 2-Dose Series (Moderna) 03/12/2021,09/10/2020,08/20/2020 COVID-19, LNP-s, No Preserve , Taran-sucrose, Ages 12+ (Pfizer) 12/30/2021 COVID-19, MRNA-LNP, 24-25, P R, 30MCG/0.3ML, IM, 12YRS AND ABOVE ([employer]) 02/22/2024 COVID-19, MRNA-LNP, PF, 30 M CG/0.3 mL, 12 YRS AND ABOVE, IM ([employer]) 06/16/2023 Covid-19, Mrna, Lnp-s, Pf, B ivalent, 30 Mcg, IM, 12 yrs and above (Pfizer) 04/28/2022 H1N1 2009 Influenza, IM 07/08/2009 Hepatitis B, 20+ yrs 12/06/2014,06/15/2014,04/10 Pneumococcal Conjugate Vacc, 13 Valent (Prevnar) 02/21/2016 Pneumococcal Conjugate Vacci ne, 20-valent ([id number]) 02/18/2023 RSV Vac., Bivalent, Perfusio n F, [...] standard drink = 0.6 oz pure alcohol) [address] Liquor: "as much as I can" 1/2 [...] ages 0-17 years) Not on file 04/04/2024 Sex and Gender Information Value Date Recorded Sex Assigned at Male 12/28/2019 9:38 AM EDT Legal Sex Male 6:05 AM EST Gender Identity Male 12/28/2019 9:38 AM EDT Sexual Orientation Straight 12/28/2019 9: 38 AM EDT documented as of this encounter Miscellaneous Notes * Telephone Encounter - Lindsay Boland LPN - 07/11/2024 3:03 PM EST Spoke with pt, verbalized understanding. * Telephone Encounter - Elis Martinez CRNP - 07/11/2024 2:44 PM EST Advised to take furosemide 40 mg twice daily for three days given ongoing shortness of breath. Ensure patient is still taking potassium chloride ER 20 mEQ twice daily as directed. We will plan to repeat bloodwork in a week after diuretic therapy. * Telephone Encounter - Karla Love LPN - 07/11/2024 2:31 PM EST Pt returned call to clinic. Pt did not increase furosemide 40mg 2x day for three days - his recently had a knee replacement and has missed some meds. He states he still has SOB. * Telephone Encounter - John Blevins LPN - 07/10/2024 3:24 PM EST Sent patient a MyChart message as well. Awaiting call back or reply. * Telephone Encounter - Lindsay Boland LPN - 07/10/2024 2:54 PM EST Called pt, no answer. LMOM * Telephone Encounter - Lindsay Boland LPN - 07/10/2024 2:53 PM EST ----- Message from Elis Martinez sent at 07/10/2024 2:50 PM EST ----- Kidney function mildly elevated on recent bloodwork. Can we follow-up with the patient? Did he take40 mg twice daily for three days? Shortness of breath improve with diuretic therapy? Resume prior dose with furosemide 40 mg daily. Sodium improved (133 -> 134) but remains chronically low. Continue 50-60 ounce fluid restriction given hyponatremia. Reinforce heart failure education with monitoring daily weights and symptoms. documented in this encounter Plan of Treatment Upcoming Encounters Date Type Department Care Team (Late st Contact Info) Description 07/13/2024 12:30 PM EST Home Visit [facility] [address] [facility] [place] [address] Hyacinth Gabriel RN [address] [facility] [place] [address] 07/20/2024 11:00 AM EST Office Visit Pharmacy, [facility] [address] [place] [address] [facility] [address] [place] [address] 07/20/2024 2:00 PM EST Cardiac Studies Cardiac Studies, [facility] [address] [facility] [place] [address] 08/21/2024 10:15 AM EDT Office Visit [facility] [address] [place] [address] Marquis Maldonado MD [address] [place] [address] 09/27/2024 9:20 AM EDT Office Visit Family Practice [facility] [address] [place] [address] Kathryn Zuleta CRNP [address] [facility] [address] 10/26/2024 11:00 AM EDT Laboratory Laboratory, [facility] [address] [place] [id number] [facility] [address] [place] [address] 01/05/2025 11:00 AM EDT Office Visit Cardiology, [facility] [address] [facility] [place] [address] Elis Martinez CRNP [address] [place] [address] 02/06/2025 10:00 AM EDT Office Visit Family [facility] [address] [place] [address] Farzad Hatfield DO [address] [facility] [place] [address] 05/21/2025 11:20 AM EST Office Visit [facility] [address] [place] [address] Wayne Mishra MD [address] [place] [address] Scheduled Orders Name Type Priority Associated Diagnoses Orde r Schedule BASIC METABOLIC PANEL Lab Routine Chronic heart failure with preserved ejection fraction (HCC) Expected: 07/18/2024, Expires: 07/11/2025 Health Maintenance Due Date Last Done Comments [...] Visit 03/28/2025 03/28/2024 CKD HGB USE SMARTSET 61969 06/23/202506/23, 06/23/2024, 04/28/2024, Additional history exists CKD PHOS USE SMARTSET 85133 06/23/202506/07, 01/28/2024, 12/01/2023, Additional history exists Albumin/Creatinine [...] esophagitis without hemorrhage Coronary artery disease involving nez perce coronary artery of nez perce heart without angina pectoris HTN, goal below [...] fraction (HCC)- Primary Coronary artery disease involving nez perce coronary artery of nez perce heart without angina pectoris HTN, goal below [...] stated as uncontrolled Coronary artery disease involving nez perce coronary artery of nez perce heart without angina pectoris COPD, moderate (HCC) Chronic airway obstruction, not elsewhere classified History of non-ST elevation myocardial infarction (NSTEMI) Old myocardial infarction Alcohol dependence with unspecified alcohol-induced disorder (HCC) History of amputation of finger, left Ascending aorta dilatation (HCC) Thoracic aortic ectasia Hypertensive heart and kidney disease with chronic diastolic congestive heart failure and stage 2 chronic kidney disease (HCC) Ambulatory dysfunction Aortic atherosclerosis (HCC) Atherosclerosis of aorta Advanced care planning/counseling discussion Other specified counseling Chronic heart failure with preserved ejection fraction (HCC)- Primary documented in this encounter Advance Directives [...] Directives occurred with: Not Discussed Care Teams Layout Former Relationship Specialty Start Date End Date Farzad Hatfield DO [address] [facility] [place] [address] PCP - General Family Medicine 12/27/23 documented as of this encounter
[2024-08-04] MEDS: LR 60ML/HR IV SCH (06:21)
[2024-08-04] MEDS: LR 500ML BOLUS, THEN 15ML/HR IV SCH (06:21)
[2024-08-04] MEDS: GABAPENTIN 300 MG CAP PO SCH ×2 (06:22→21:06)
[2024-08-04] MEDS: ACETAMINOPHEN 500 MG TAB PO SCH ×2 (06:22→14:07)
[2024-08-04] MEDS: FAMOTIDINE 20 MG TAB PO SCH (06:23)
[2024-08-04] MEDS: dexAMETHasone**PF** 10 MG/ML VIAL IV SCH (06:23)
[2024-08-04] MEDS ORDERED: BUPIVACAINE 0.5 % 5 MG/1 ML PF 10ML VIAL ONE (06:24)
--- NOTE | 2024-08-04 06:34 | History & Physical Bridge Note ---
Date of Service August 04, 2024 History & Physical Bridge Note I have examined the patient, reviewed the History & Physical and in the interval since the performance of the History & Physical I have noted the following changes of clinical significance: no changes noted
[2024-08-04] MEDS ORDERED: fentaNYL citrate PF 100 MCG/2 ML VIAL ONE (06:36)
[2024-08-04] MEDS ORDERED: MIDAZOLAM HCL 1 MG/ML 2ML VIAL ONE (06:36)
[2024-08-04] MEDS ORDERED: ONDANSETRON INJ 2 MG/ML 2 ML VIAL ONE ×2 (06:38→10:04)
[2024-08-04] MEDS ORDERED: LIDOCAINE 2% 2 ML VIAL/AMP(20MG/ML) INFIL ONE ×2 (06:38→07:18)
[2024-08-04] MEDS ORDERED: PROPOFOL IV EMULSION 10 MG/ML 20 ML VIAL IV ONE ×2 (06:38→07:45)
[2024-08-04] MEDS ORDERED: KETAMINE HCL 10MG/ML SYR ONE (06:45)
[2024-08-04] MEDS: TRANEXAMIC ACID 1,000 MG **IV Pre-op IV SCH (06:45)
[2024-08-04] MEDS ORDERED: ONDANSETRON INJ 2 MG/ML 2 ML VIAL IV PRN ×2 (06:45→11:41)
[2024-08-04] MEDS ORDERED: fentaNYL citrate PF 100 MCG/2 ML VIAL IV PRN (06:45)
[2024-08-04] MEDS ORDERED: ATROPINE SULFATE 0.1 MG/ML 10ML SYR IV PRN (06:45)
[2024-08-04] MEDS ORDERED: ePHEDrine sulfate 50 MG/ML AMP IV PRN (06:45)
[2024-08-04] MEDS: ceFAZolin 3000MG 3,000 MG/72.5 ML BAG IV SCH (07:00)
[2024-08-04] MEDS ORDERED: GLYCOPYRROLATE 0.2 MG/ML VIAL ONE (07:18)
[2024-08-04] MEDS: ORTHO JOINT ANESTHETIC ONE (07:35)
[2024-08-04] MEDS ORDERED: PHENYLEPHRINE 100MCG/ML 5ML SYR ONE (07:41)
[2024-08-04] MEDS: ROPIV 0.5% 246mg, Ketorolac 30mg, EPINEPHrine 0.5mg in NSS INFIL SCH (08:25)
[2024-08-04] MEDS: TRANEXAMIC ACID 1,000 MG **IV Intra-op IV SCH (08:36)
--- NOTE | 2024-08-04 08:39 | Operative Report ---
PG Post Operative Report Pre & Post Diagnosis Operation Date: 08/04/24 07:00 Pre-Op Diagnosis: Osteoarthritis Hip Left Post-Op Diagnosis: Osteoarthritis Hip Left I identified the patient and participated in the time-out.: Yes Procedure Operation Date: 08/04/24 07:00 Actual Procedures p Left Anterior Total Hip Arthroplasty(Left) - Norberto Mccann DO Surgeon Norberto Mccann DO Manager Heart Failure Nate Valle PA-C Estimated Blood Loss 300 Findings Consistent with Post-Op Diagnosis Specimens Left femoral head Description of Procedure Implants used I used a [employer]immer[employer]omet total hip arthroplasty system with a size 2 high offset Avenir Complete stem, a 56 mm G7 cup with a 25mm screw, an E1 polyethylene liner, a 40 mm ceramic head with a +7 neck. Damon arrived at the hospital for the above procedure. He was seen in the preoperative holding area and the operative extremity was identified and signed. He was given a spinal anesthetic, a preoperative antibiotic, and TXA. He was then taken back to the operating room and laid on the table in the supine position. He was given basic sedation. The operative leg was secured to a Puristst leg positioner. The hip was then prepped and draped in sterile fashion. A timeout was done and the patient and the operative extremity was properly identified. An anterior approach was used. Dissection was taken down through the fascia and the tensor muscle belly was retracted laterally and the rectus was retracted medially. The circumflex vessels were identified and ligated. The capsule was then incised and tagged for later repair. The femoral neck was then cut and the femoral head was removed. The acetabulum was exposed. Time was spent doing a complete circumferential labral release. Sequential reaming of the acetabulum up to a size 55 reamer was done. Final reamings were done under fluoroscopy to ensure appropriate version. A Biomet 56 mm G7 cup was then impacted into place. A single 25 mm screw was placed. The E1 polyethylene liner was then snapped into place. Surrounding soft tissues were then injected with 100 cc of an orthopedic pain control cocktail. The proximal femur was then exposed. Sequential broaching up to a size 2 broach was done. Off that broach a size 40 head with a +7 neck was trialed. The hip was reduced and fluoroscopic images showed anatomic alignment of the implants in acceptable length. The broach was removed. The final size 2 high offset Avenir Complete stem was then impacted into place. A ceramic 40 mm head with a +7 neck was then impacted onto the stem and the hip was reduced. Final fluoroscopic images showed anatomic alignment of the hip. The capsule was then closed with #1 Vicryl suture. A dilute betadyne lavage was then done for 3 minutes. The joint was then irrigated with normal saline solution. The fascia was closed with #1 PDS suture. Skin was closed with 2-0 Vicryl, jerrell, and a Silverlon dressing. He was then transferred to a hospital bed and taken to the post anesthesia care unit in stable condition. He tolerated the procedure well. Nate Valle PA-C, was present for the entire procedure. He was critical for patient positioning, prepping, draping, retraction exposure, wound closure and application of sterile dressing. I attest to the content of the Intraoperative Record and any orders documented therein. Any exceptions are noted below.
--- NOTE | 2024-08-04 09:43 | Fluoroscopy Report ---
FL hip LT 1V CLINICAL HISTORY: LT ANTERIOR HIP COMPARISON STUDY: None FLUOROSCOPY TIME: 27 seconds FLUOROSCOPY IMAGES: 1 EXPOSURE DOSE: 4.2 mGy FINDINGS: Fluoroscopy was provided for placement of left hip prosthesis. IMPRESSION: Intraoperative fluoroscopy. ACT 112: Negative or not required by law. Electronically signed by: Geremias Swift M.D. 08/04/2024 9:41 AM
--- NOTE | 2024-08-04 09:53 | XRay Report ---
XR hip 1V LT w pelvis CLINICAL HISTORY: IN PACU - Post Surgical COMPARISON: Fluoroscopy earlier today FINDINGS: Bilateral hip prostheses show no hardware complication. There is a small osseous density a djacent to the left acetabulum. There is expected soft tissue gas. Skin jerrell are present laterally . IMPRESSION: Unremarkable postoperative exam. ACT 112: Negative or not required by law. Electronically signed by: Geremias Swift M.D. 08/04/2024 9:51 AM
[2024-08-04] MEDS ORDERED: diphenhydrAMINE 50 MG/ML VIAL ONE (10:04)
[2024-08-04] MEDS ORDERED: HYDROmorphone INJ 0.5 MG/0.5 ML SYR IV PRN (11:41)
[2024-08-04] MEDS ORDERED: MAGNESIUM HYDROXIDE SUSP 30 ML UDC PO PRN (11:41)
[2024-08-04] MEDS ORDERED: INSULIN ASPART PER UNIT CHARGE SQ SCH (11:41)
[2024-08-04] MEDS ORDERED: bisacodyL 10 MG SUPP PR PRN (11:41)
[2024-08-04] MEDS ORDERED: METOCLOPRAMIDE HCL INJ 5 MG/ML 2 ML VIAL IV PRN (11:41)
[2024-08-04] MEDS ORDERED: oxyCODONE HCL IR 5 MG TAB (IMMEDIATE RELEASE) PO PRN (11:41)
[2024-08-04] MEDS ORDERED: NALOXONE HCL 0.4 MG/1 ML VIAL/CARP IV PRN (11:41)
[2024-08-04] MEDS ORDERED: PHARMACY GLYCEMIC MGMT CONSULT PRN (11:41)
[2024-08-04] MEDS: KETOROLAC TROMETHAMINE 15 MG/ML VIAL IV SCH (14:07)
[2024-08-04] MEDS: FUROSEMIDE 40 MG TAB PO SCH (14:07)
[2024-08-04] MEDS ORDERED: INSULIN ASPART 100 UNITS/ML VIAL SC PRN (14:15)
--- NOTE | 2024-08-04 14:30 | Anesthesiology Progress Note ---
Date of Service August 04, 2024 Anesthesia Post Procedure Vital Signs Vital Signs: Temp Pulse Pulse Resp BP BP Pulse Ox 08/04/24 14:13 36.6 C 78 16 167/84 H 95 08/04/24 13:38 82 16 156/84 H 94 08/04/24 12:14 75 16 169/94 H 95 08/04/24 11:54 36.4 C L 72 16 162/91 H 97 08/04/24 11:00 68 16 140/74 96 08/04/24 10:45 67 18 141/78 H 97 08/04/24 10:30 68 16 133/73 92 08/04/24 10:15 65 14 117/73 92 08/04/24 10:00 36.4 C L 73 18 126/66 92 08/04/24 09:50 36.3 C L 68 16 132/71 94 08/04/24 09:40 67 18 110/68 93 08/04/24 09:30 65 14 111/58 L 92 08/04/24 09:20 66 16 102/59 L 94 08/04/24 09:13 36.3 C L 68 14 95/61 L 96 08/04/24 06:06 08/04/24 06:06 36.6 C 73 20 158/89 H 94 O2 Del Method O2 Flow Rate 08/04/24 14:13 Room Air 08/04/24 13:38 Room Air 08/04/24 12:14 Room Air 08/04/24 11:54 Oxymask 3 08/04/24 11:00 Oxymask 3 08/04/24 10:45 Oxymask 3 08/04/24 10:30 Oxymask 3 08/04/24 10:15 Oxymask 3 08/04/24 10:00 Oxymask 3 08/04/24 09:50 Oxymask 4 08/04/24 09:40 Oxymask 4 08/04/24 09:30 Oxymask 6 08/04/24 09:20 Oxymask 6 08/04/24 09:13 Oxymask 6 08/04/24 06:06 Room Air 08/04/24 06:06 Room Air Transfer of Care Handoff Completed per policy Notes Mental Status: alert / awake / arousable and participated in evaluation Patient Amnestic to Procedure: Yes Nausea / Vomiting: adequately controlled Pain: adequately controlled Airway Patency, RR, SpO2: stable & adequate BP & HR: stable & adequate Hydration State: stable & adequate Neuraxial Anesthesia: was administered and sensory block is resolving Anesthetic Complications: no major complications apparent and Pt Satisfied with anesthetic care
[2024-08-04] MEDS: INSULIN, Rapid-Acting PUMP SCH (14:41)
--- NOTE | 2024-08-04 15:40 | Consultation ---
Date of Consultation August 04, 2024 Assessment & Plan (1) Status post left hip replacement: (2) Type 1 diabetes mellitus: (3) CAD (coronary artery disease): (4) Chronic heart failure with preserved ejection fraction (HFpEF): (5) PAF (paroxysmal atrial fibrillation): Plan This is a 68 yr old F who has a significant PMH of T1DM, DM peripheral angiopathy, HTN, HLD, Chronic HFpEF, CHANTELL on CPAP, moderate persistent asthma, PAF, GERD, BPH, Morbid obesity, acquired absence of the R hand, Alcohol dependence, depression who presents for elective Left anterior total hip arthroplasty by Dr. Mccann. #S/P L SHANNAN by Dr. Mccann, EBL 300ml pain/wound management per ortho activity and therapy as prescribed by ortho monitor hemoglobin post op #Chronic HFpEF #CAD #PAF #HTN #HLD on asa, statin, plavix, lasix, amlodipine, losartan, metoprolol daily weights, strict I and O, pre op echo reviewed, preserved EF he reports baseline weight is ~ 285# CHANTELL: CPAP at HS T1DM: wears insuin pump, last a1c 7.4 in June DVT ppx: Per primary, pt on asa, plavix at baseline FULL CODE PCP: Farzad Hatfield Dispo: per primary Pt was seen and examined in collaboration with Dr. Salinas, please see addendum I spent a total of 45 minutes coordinating, documenting and providing care for t his patient excluding time spent in the performance of separately billed services or time spent by another provider/QHP. Thank you for this consultation. We will follow the patient with you during their hospital stay. You can reach a member of the [facility] Hospitalist Team 28/12 via hospitalist role on tiger text. Supervising Physician Co-Signing Physician Notes Patient is a 68-year-old male with history of diabetes mellitus and other medical problems was consulted for postop medical management. Patient underwent left total hip arthroplasty by Dr. Mccann today. Patient is doing well postoperatively. He denies any significant hip pain. Also denies any chest pain, dyspnea, nausea, vomiting, abdominal pain. I personally reviewed imaging studies. Physical Exam: Vitals signs as noted above General Appearance:Obese, no apparent distress Head: normocephalic, Atraumatic Eyes: normal inspection, EOMI Neck: supple, Trachea midline Respiratory/Chest: Normal breath sounds, CTA, No accessory muscle use Cardiovascular: S1, S2, No murmur Abdomen/GI:Soft, Non tender, Bowel sounds present Extremities/Musculoskeletal:normal inspection, no edema, left hip surgical site in dressing, wound VAC Multiple finger amputation Neurologic/Psych:AAOX3, grossly no focal neurological deficits Skin: normal color, warm Left hip arthroplasty Monitor for postop anemia Bowel regimen to prevent constipation Pain control Wound care, activity per primary team DM II Continue insulin per protocol Monitor blood glucose levels I personally interviewed and examined the patient at bedside. I have reviewed the advanced practitioner's documentation on the date of service referred in note and agree with plan. Patient's care is coordinated with , Dian Jacobo PA-C. Please refer to the documentation above for details of patient's presentation and for discussion of other issues. I spent a total [id number] coordinating, documenting, and providing care for this patient excluding time spent in the performance of separately billed services or time spent by another provider/QHP. History of Present Illness Requesting Physician: Dr. Mccann Reason for Consultation: Post op med management Attending Physician: Norberto Mccann DO History of Present Illness This is a 68 yr old F who has a significant PMH of T2DM, DM peripheral angiopathy, HTN, HLD, Chronic HFpEF, CHANTELL on CPAP, moderate persistent asthma, PAF, GERD, BPH, Morbid obesity, acquired absence of the R hand, Alcohol dependence, depression who presents for elective Left anterior total hip arthroplasty by Dr. Mccann. He tolerated the procedure well. He has a pre op echo which showed preserved EF, enlarged aortic root at 4.6cm, mildly enlarged prox ascending aorta measuring 4.0. Allergies Allergy/AdvReac Type Severity Reaction Status Date / Time DEIDRE Inhibitors AdvReac Unknown Cough Verified 08/04/24 05:57 Home Medications Medication Instructions Recorded Confirmed Type clopidogrel 75 mg tablet (Plavix) 75 mg PO QAM 02/04/18 08/04/24 History finasteride 5 mg tablet 5 mg PO QAM 02/04/18 08/04/24 History folic acid 1 mg tablet 1 mg PO QAM 02/04/18 08/04/24 History levothyroxine 125 mcg tablet 125 mcg PO QAM 02/04/18 08/04/24 History tamsulosin 0.4 mg capsule (Flomax) 0.4 mg PO HS 02/04/18 08/04/24 History losartan 50 mg tablet 50 mg PO BID 05/13/18 08/04/24 History atorvastatin 40 mg tablet 40 mg PO QAM 04/14/20 08/04/24 History metoprolol succinate 25 mg 25 mg PO QAM 04/14/20 08/04/24 History tablet,extended release 24 hr omeprazole 20 mg capsule,delayed 20 mg PO QAM 04/14/20 08/04/24 History release amlodipine 5 mg tablet 5 mg PO QAM 07/12/20 08/04/24 History insulin aspart U-100 100 unit/mL 0 unit subcut CONTINOUS 07/12/20 08/04/24 History subcutaneous solution aspirin 81 mg tablet,delayed 81 mg PO QAM 03/13/21 08/04/24 History release gabapentin 300 mg capsule 300 mg PO BID 03/13/21 08/04/24 History potassium chloride 20 mEq 20 meq PO QAM 08/12/21 08/04/24 History tablet,extended release multivitamin 1 tab PO QAM 11/11/21 08/04/24 History atropine 1 % eye drops 1 drp OPL DAILY 02/26/22 08/04/24 History furosemide 40 mg tablet 40 mg PO BID 09/11/22 08/04/24 History nitroglycerin 0.4 mg sublingual 0.4 mg sublingual DIRECTED PRN 03/20/23 08/04/24 History tablet Chest Pain venlafaxine 150 mg 150 mg PO QAM 03/20/23 08/04/24 History capsule,extended release 24 hr coQ10 (ubiquinol) 100 mg capsule 0 mg PO UD 04/12/24 08/04/24 History (Qunol Vitor CoQ10) mv-mn-folic 200 mcg-vit K 15 1 cap PO DAILY 04/12/24 08/04/24 History mcg-lutein 5 mg-zeaxanthin 1 mg capsule (PreserVision AREDS 2 Plus Multivit) cefadroxil 500 mg capsule 500 mg PO BID 10 days #20 caps 08/04/24 Rx oxycodone 5 mg tablet 5 mg PO Q6H PRN pain #30 tabs 08/04/24 Rx Patient History Medical History MGUS (monoclonal gammopathy of unknown significance) Liver mass CKD (chronic kidney disease) stage 3, GFR 30-59 ml/min Type 1 diabetes mellitus insulin pump Hypothyroidism BPH (benign prostatic hyperplasia) CAD (coronary artery disease) s/p NSTEMI 2016-see cardiology 06/29/24 note for catheterization details- medical management advised Sleep apnea CPAP-compliant History of seizures unknown details regarding dx, last one approx 2018. Unknown details regarding etiology. Has neurologist but mainly focus is on neuropathy per pt. Denies seizure medication. History of myocardial infarction (~2015) History of atrial fibrillation Frequent falls hx, has improved. Balance disorder Neuropathy Chronic venous insufficiency hx sx. COPD (chronic obstructive pulmonary disease) controlled, stable per pt-lost to f/u with [facility] pulmonology per chart review/patient-denies inhaler use History of pneumonia (2021) History of COVID-19 (2019) Iron deficiency anemia monitors Aortic root enlargement Poor historian Depression Hyperlipidemia HTN (hypertension) controlled, stable per pt Cataracts, both eyes [place] (hard of hearing) left ear worse History of colon polyps Hiatal hernia Dyspnea on effort Chronic heart failure with preserved ejection fraction (HFpEF) EF 50-55% Alcohol abuse Hyponatremia GERD (gastroesophageal reflux disease) controlled, stable per pt Dyslipidemia Surgical History History of ear surgery left History of eye surgery several right eye, hx injury. History of vascular surgery right for vericose veins. History of total right hip replacement History of endoscopy History of colonoscopy History of hand surgery BILAT HANDS-FINGER AMPUTATIONS History of cardiac cath 2019? [facility] History of tonsillectomy and adenoidectomy Family History Other Cancer Diabetes Hypertension Social History Smoking Status: Former smoker Tobacco Type: Cigarettes Cigarettes Per Day: 30; Smoking End Date: 01/05/95; Second Hand Exposure: No; Do You Dip or Chew Tobacco: No; Hx Alcohol Use: Yes Alcohol type: hard liquor Alcohol Intake Frequency Comment: 8 oz hard liquor daily per pt Hx Substance Use: Yes (hx smoked marijuana remote hx, not current) Preferred Language: Macanese Communication Ability: Effective Visual Impairment: Limited Hearing Ability: Hard of Hearing Deployment Specialist Required: No Beliefs That Will Affect Care: None marital status: Current Living Situation: Spouse current occupational status: employed 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, 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, 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 [employer] How many Children do You have: 3 How many Children do You have Comment: and child able to assist with care as needed Other Information That Helps Us Care for You: No Feels Safe at Home: Yes Diet Comment: tries to watch diabetic diet, during the past year weight has: remained stable Assistive Devices: CPAP and Other Assistive Devices Comment: reading glasses, insulin pump Review of Systems Review of Systems: All systems reviewed & are unremarkable except as noted in HPI & below Physical Exam Physical Exam: Constitutional: WD/WN, vitals as above, NAD, sitting up in bed, pleasant, conversing easily Head: Normocephalic, Atraumatic Eyes: PERRL, conjunctivae normal, anicteric sclerae ENMT: external ear and nose normal, oropharynx normal Neck: trachea midline, no thyromegaly normal visual inspection Respiratory: normal respiratory effort, lungs clear to auscultation, no wheeze, rales, rhonchi. Normal insp/exp effort, no accessory muscle use Cardiovascular: RRR, no murmur, no edema Vessels: no JVD or carotid bruit Chest: normal inspection of chest Abdomen: protuberant abd, normal bowel sounds, soft, nontender, no hepatosple nomegaly Musculoskeletal: no cyanosis or clubbing, extremities motor strength 5/5 , missing digits to b/l hands Skin: no rashes, warm and dry normal turgor Neurologic: no face palsy, no dysarthria CN's II-XI intact bilaterally and moves all extremities Psychiatric: A+Ox3, euthymic affect : deferred Results & Data Vital Signs (Past 12 Hours) Vital Signs Temp Pulse Pulse Resp BP BP Pulse Ox 08/04/24 14:13 36.6 C 78 16 167/84 H 95 08/04/24 13:38 82 16 156/84 H 94 08/04/24 12:14 75 16 169/94 H 95 08/04/24 11:54 36.4 C L 72 16 162/91 H 97 08/04/24 11:30 08/04/24 11:00 68 16 140/74 96 08/04/24 10:45 67 18 141/78 H 97 08/04/24 10:30 68 16 133/73 92 08/04/24 10:15 65 14 117/73 92 08/04/24 10:00 36.4 C L 73 18 126/66 92 08/04/24 09:50 36.3 C L 68 16 132/71 94 08/04/24 09:40 67 18 110/68 93 08/04/24 09:30 65 14 111/58 L 92 08/04/24 09:20 66 16 102/59 L 94 08/04/24 09:13 36.3 C L 68 14 95/61 L 96 08/04/24 06:06 08/04/24 06:06 36.6 C 73 20 158/89 H 94 O2 Del Method O2 Flow Rate 08/04/24 14:13 Room Air 08/04/24 13:38 Room Air 08/04/24 12:14 Room Air 08/04/24 11:54 Oxymask 3 08/04/24 11:30 Oxymask, CPAP 3 08/04/24 11:00 Oxymask 3 08/04/24 10:45 Oxymask 3 08/04/24 10:30 Oxymask 3 08/04/24 10:15 Oxymask 3 08/04/24 10:00 Oxymask 3 08/04/24 09:50 Oxymask 4 08/04/24 09:40 Oxymask 4 08/04/24 09:30 Oxymask 6 08/04/24 09:20 Oxymask 6 08/04/24 09:13 Oxymask 6 08/04/24 06:06 Room Air 08/04/24 06:06 Room Air Laboratory Results I have independently reviewed and interpreted patient's admitting labs including CBC, CMP Diagnostic Findings Hip X-Ray 08/04/24 07:00 FL hip LT 1V CLINICAL HISTORY: LT ANTERIOR HIP COMPARISON STUDY: None FLUOROSCOPY TIME: 27 seconds FLUOROSCOPY IMAGES: 1 EXPOSURE DOSE: 4.2 mGy FINDINGS: Fluoroscopy was provided for placement of left hip prosthesis. IMPRESSION: Intraoperative fluoroscopy. ACT 112: Negative or not required by law. Electronically signed by: Geremias Swift M.D. 08/04/2024 9:41 AM Hip/Pelvis X-Ray 08/04/24 09:20 XR hip 1V LT w pelvis CLINICAL HISTORY: IN PACU - Post Surgical COMPARISON: Fluoroscopy earlier today FINDINGS: Bilateral hip prostheses show no hardware complication. There is a small osseous density adjacent to the left acetabulum. There is expected soft tissue gas. Skin jerrell are present laterally. IMPRESSION: Unremarkable postoperative exam. ACT 112: Negative or not required by law. Electronically signed by: Geremias Swift M.D. 08/04/2024 9:51 AM Medications Administered Current Inpatient Medications Acetaminophen (Acetaminophen 500 Mg Tab) 1,000 mg PO Q8 [facility] Stop: 09/03/24 13:59 Last Admin: 08/04/24 14:07 Dose: 1,000 mg Amlodipine Besylate (Amlodipine Besylate 5 Mg Tab) 5 mg PO QAM [facility]IOR Stop: 09/04/24 08:59 Aspirin (Aspirin 81 Mg Ectab) 81 mg PO BID [facility]IOR Stop: 09/03/24 20:59 Atorvastatin Calcium (Atorvastatin 40 Mg Tab) 40 mg PO QAM [facility] Stop: 09/04/24 08:59 Atropine Sulfate (Atropine Sulfate 1% Op Soln 5 Ml Btl) 1 drops OPL DAILY [facility] Stop: 09/04/24 08:59 Bisacodyl (Bisacodyl 10 Mg Supp) 10 mg AL DAILY PRN PRN Reason: Constipation Stop: 09/03/24 11:40 Clopidogrel Bisulfate (Clopidogrel Bisulfate 75 Mg Tab) 75 mg PO QAM [facility]IOR Stop: 09/04/24 08:59 Docusate Sodium (Docusate Sodium 100 Mg Cap) 100 mg PO BID [facility]IOR Stop: 09/03/24 20:59 Finasteride (Finasteride 5 Mg Tab) 5 mg PO QAM [facility] Stop: 09/04/24 08:59 Furosemide (Furosemide 40 Mg Tab) 40 mg PO QAM [facility] Stop: 09/03/24 12:29 Last Admin: 08/04/24 14:07 Dose: 40 mg Gabapentin (Gabapentin 300 Mg Cap) 300 mg PO BID YUNIOR Stop: 09/03/24 20:59 Hydromorphone HCl (Hydromorphone Inj 0.5 Mg/0.5 Ml Syr) 0.5 mg IV Q4H PRN PRN Reason: Pain or Pre PT Stop: 08/18/24 11:40 Cefazolin Sodium (Ancef 2000mg) 2,000 mg in 15 mls @ 3.75 mls/min IV Q8H [facility]; Protocol Stop: 08/04/24 23:03 Insulin Aspart (Insulin, Rapid-Acting Pump) 1 each N/A ACHS [facility]; Protocol Stop: 09/03/24 14:29 Last Admin: 08/04/24 14:41 Dose: 1 each Insulin Aspart (Insulin Aspart 100 Units/Ml Vial) 0 units SC PRN PRN PRN Reason: Pump Refill Use ONLY Stop: 09/03/24 14:14 Ketorolac Tromethamine (Ketorolac Tromethamine 15 Mg/Ml Vial) 15 mg IV Q6H [facility] Stop: 08/05/24 06:01 Last Admin: 08/04/24 14:07 Dose: 15 mg Levothyroxine Sodium (Levothyroxine Sodium 125 Mcg Tablet) 125 mcg PO DAILYBB [facility] Stop: 09/04/24 06:29 Losartan Potassium (Losartan Potassium 50 Mg Tab) 50 mg PO BID [facility] Stop: 09/03/24 20:59 Magnesium Hydroxide (Magnesium Hydroxide Susp 30 Ml Udc) 30 ml PO Q6H PRN PRN Reason: Constipation Stop: 09/03/24 11:40 Metoclopramide HCl (Metoclopramide Hcl Inj 5 Mg/Ml 2 Ml Vial) 10 mg IV Q6H PRN PRN Reason: Nausea And Vomiting Stop: 09/03/24 11:40 Metoprolol Succinate (Metoprolol Succ 25mg Ext Rel Tab) 25 mg PO QAM [facility] Stop: 09/04/24 08:59 Multivitamins (Multivitamin Tab) 1 tab PO QAM [facility] Stop: 09/04/24 08:59 Multivitamins/Minerals (Cerovite Adv Formula Tab) 1 tab PO DAILY [facility]; Protocol Stop: 09/04/24 08:59 Naloxone HCl (Naloxone Hcl 0.4 Mg/1 Ml Vial/Carp) 0.1 mg IV Q5M PRN PRN Reason: Oversedation/Resp Depression Stop: 09/03/24 11:40 Ondansetron HCl (Ondansetron Inj 2 Mg/Ml 2 Ml Vial) 4 mg IV Q6H PRN PRN Reason: Nausea And Vomiting Stop: 09/03/24 11:40 Oxycodone HCl (Oxycodone Hcl Ir 5 Mg Tab (Immediate Release)) 5 - 10 mg PO Q4H PRN PRN Reason: Pain or Pre PT Stop: 08/18/24 11:40 Pantoprazole Sodium (Pantoprazole 40 Mg Tab) 40 mg [place] [facility]; Protocol Stop: 09/04/24 08:59 Sennosides (Senna 8.6 Mg Tab) 17.2 mg PO [facility] Stop: 09/03/24 20:59 Tamsulosin HCl (Tamsulosin Hcl 0.4 Mg Cap) 0.4 mg PO [facility] Stop: 09/03/24 20:59 Venlafaxine HCl (Venlafaxine Hcl Xr 150 Mg Capxr) 150 mg PO [facility] Stop: 09/04/24 08:59 ECG Additional Comments: I have independently reviewed and interpreted patient's admitting EKG which revealed: 67 NSR, lateral t wave inversion, no change from ecg 07/06/23.
[2024-08-04] MEDS ORDERED: GLUCOSE 40% GEL 15 GM TUBE PO PRN (16:17)
[2024-08-04] MEDS ORDERED: CARBOHYDRATES FOR HYPOGLYCEMIA PO PRN (16:17)
[2024-08-04] MEDS ORDERED: GLUCAGON FOR INJ 1 MG VIAL SQ PRN (16:17)
[2024-08-04] MEDS ORDERED: GLUCOSE 10 TAB/TUBE PO PRN (16:17)
[2024-08-04] MEDS ORDERED: DEXTROSE 50% 50 ML SYRINGE IV PRN (16:17)
[2024-08-04] MEDS: ceFAZolin 2000MG 2,000 MG/15 ML SYR IV SCH (16:24)
[2024-08-04 20:05] VITALS: RESP 18
[2024-08-04] MEDS: ASPIRIN 81 MG ECTAB PO SCH (21:05)
[2024-08-04] MEDS: DOCUSATE SODIUM 100 MG CAP PO SCH (21:05)
[2024-08-04] MEDS: LOSARTAN POTASSIUM 50 MG TAB PO SCH (21:07)
[2024-08-04] MEDS: SENNA 8.6 MG TAB PO SCH (21:08)
[2024-08-04] MEDS: TAMSULOSIN HCL 0.4 MG CAP PO SCH (21:08)
--- OUTSIDE RECORDS SUMMARY | 2024-08-05 00:06 | External Medical Summary | Summary of Care ---
Author Name Unknown Organization [facility] Address [address] [place] [address] Phone [phone] Care Team Providers Care Pedicab Driver Name Role Phone Farzad Hatfield DO Primary Care Provider Reason for Visit * Reason Onset Date Comments [facility]: Maintenance 08/04/2024 Encounter Details Date Type Department Care Team (Late st Contact Info) Description 08/04/2024 Telephone [facility], [facility] [address] [facility] [place] [id number] Afshan Acosta LPN [address] [place] [facility] [place] [address] [facility]: Maintenance Allergies Active Allergy Reactions Criticality Noted Date Comments Jose Manuel Inhibitors Cough Low 09/13/2009 documented as of this encounter (statuses as of 08/04/2024) Medications ASPIRIN 81 MG PO TABS 1 [...] Tablet Sublingual (Nitrostat)Indicat ions:Coronary artery disease involving [place] coronary artery of [place] heart without angina pectoris Place 1 Tablet [...] MG Oral TabletIndications: Coronary artery disease involving [place] coronary artery of [place] heart without angina pectoris TAKE ONE TABLET BY MOUTH DAILY 90 Tablet 3 06/29/2024 12:07 PM EST 11/29/19 24 06/24/2 025 Active Atorvastatin Calcium 40 MG Oral [...] PM EST 04/24/20 24 Active Omnipod 5 [id number] Pods Gen 5Indications:Type 1 diabetes mellitus with [...] as of this encounter (statuses as of 08/04/2024) Active Problems Problem Noted Date Diagnosed Date Morbid obesity with body mas s index (BMI) of 40.0 to 44.9 in adult 02/22/2024 Severe episode of recurrent major depressive disorder, without psychotic features 08/19/2023 Alcohol dependence with unsp ecified alcohol-induced disorder 08/19/2023 Type 2 diabetes mellitus with other skin ulcer ( CODE) 08/19/2023 Atherosclerosis of [place] co ronary artery without angina pectoris 08/19/2023 [...] in the Comments) Remote Patient Monitoring Vendor: [facility] [place] Device(s): Connected Scale Self - Management Plan [...] as of this encounter (statuses as of 08/04/2024) Resolved Problems Problem Noted Date Diagnosed Date [...] Glucocorticoid-LABA Combination Inhaler Remote Patient Monitoring Vendor: [facility] [place] Device(s): Connected Scale Self-Management plan Other/Additional Comments: [...] minutes ambulation Coronary artery disease invo lving [place] coronary artery of [place] heart without angina pectoris 11/21/2015 02/21/2024 Overview [...] as of this encounter (statuses as of 08/04/2024) Immunizations Name Administration Dates Next Due COVID-19 mRNA, LNP-s, No Pre serve, 2-Dose Series (Moderna) 03/12/2021,09/10/2020,08/20/2020 COVID-19, LNP-s, No Preserve , Taran-sucrose, Ages 12+ (Pfizer) 12/30/2021 COVID-19, MRNA-LNP, 24-25, P R, 30MCG/0.3ML, IM, 12YRS AND ABOVE (ClipCard[employer]) 02/22/2024 COVID-19, MRNA-LNP, PF, 30 M CG/0.3 mL, 12 YRS AND ABOVE, IM (Intercom) 06/16/2023 Covid-19, Mrna, Lnp-s, Pf, B ivalent, 30 Mcg, IM, 12 yrs and above (ClipCard) 04/28/2022 H1N1 2009 Influenza, IM 07/08/2009 Hepatitis B, 20+ yrs 12/06/2014,06/15/2014,04/10 Pneumococcal Conjugate Vacc, 13 Valent (Prevnar) 02/21/2016 Pneumococcal Conjugate Vacci ne, 20-valent ([id number]) 02/18/2023 RSV Vac., Bivalent, Perfusio n F, [...] standard drink = 0.6 oz pure alcohol) [employer] Liquor: "as much as I can" 1/2 [...] Telephone Encounter - Afshan Acosta LPN - 08/04/2024 9:37 AM EST Images from the original note were not included. [facility] Remote Patient Monitoring Unable to contact patient: Trigger type: Called pt to F/U on [facility] weight trigger no answer LMOM to return call documented in this encounter Plan of Treatment Upcoming Encounters Date Type Department Care Team (Late st Contact Info) Description 08/21/2024 10:15 AM EDT Office Visit [facility] [address] [place] [id number] Marquis Maldonado MD [address] [place] [id number] 08/25/2024 9:30 AM EDT Home Visit [facility] at [address] [place] [address] Hyacinth Gabriel, KATINA [address] [place] [address] 09/27/2024 9:20 AM EDT Office Visit Family [facility] [address] [facility] [place] [address] Kathryn Zuleta CRNP [address] [facility] [place] [address] 09/28/2024 10:40 AM EDT Office Visit [facility] [address] [facility] [place] [address] [facility] [address] [facility] [place] [address] 10/26/2024 11:00 AM EDT Laboratory [facility], [facility] [address] [facility] [place] [phone] [facility] [address], [place] [address] 11/02/2024 1:30 PM EDT Office Visit Hematology/Oncology [facility] [address] [place] [phone] China Mason CRNP [address] [facility] [place] [address] 01/05/2025 11:00 AM EDT Office Visit Cardiology, [facility] [address] [facility] [place] [address] Elis Martinez CRNP [address] [place] [address] 02/06/2025 10:00 AM EDT Office Visit Family Practice [facility] [address] [place] [address] Farzad Hatfield DO [address] [place] [address] 05/21/2025 11:20 AM EST Office Visit Neurology [facility] [address] [facility] [place] [address] Wayne Mishra MD [address] [facility] [place] [address] Health Maintenance Due Date Last Done Comments [...] Visit 03/28/2025 03/28/2024 CKD HGB USE SMARTSET 66688 06/23/202506/23, 06/23/2024, 04/28/2024, Additional history exists CKD PHOS USE SMARTSET 16114 06/23/202506/07, 01/28/2024, 12/01/2023, Additional history exists Albumin/Creatinine [...] Directives occurred with: Not Discussed Care Teams Pedicab Driver Relationship Specialty Start Date End Date Farzad Hatfield DO [address] [place] [address] PCP - General Family Medicine 12/27/23 documented as of this encounter
[2024-08-05] MEDS: LEVOTHYROXINE SODIUM 125 MCG TABLET PO SCH (06:07)
[2024-08-05 06:40] LABS: Hematocrit (blood only) 33.5 % (42.0-52.0); Hemoglobin 11.6 g/dl (14.0-18.0); Mean Corpuscular Hemoglobin 34.1 pg (25.0-34.0); Mean Corpuscular Hgb Conc 34.6 g/dL (32.0-36.0); Mean Corpuscular Volume 98.5 fL (80.0-100.0); Mean Platelet Volume 10.3 fL (9.4-12.4); Platelet Count 245 K/uL (130-400); RDW Coefficient of Variation 14.7 % (11.5-14.5); RDW Standard Deviation 53.1 fL (36.4-46.3); White Blood Count 12.54 K/ul (4.8-10.8)
[2024-08-05 06:49] LABS: BUN Creatinine Ratio 12.5 (10-20); Creatinine Clr Calc Pharmacy 73.2 ml/min; Potassium 4.4 mmol/L (3.5-5.1)
[2024-08-05 07:03] LABS: Basophils # (auto) 0.01 K/uL (0.00-0.20); Basophils % (auto) 0.1 %; Eosinophils # (auto) 0.42 K/uL (0.00-0.50); Eosinophils % (auto) 3.3 %; Immature Granulocytes # (auto) 0.06 K/uL (0.01-0.20); Immature Granulocytes % (auto) 0.5 %; Lymphocytes # (auto) 1.32 K/uL (1.20-3.40); Lymphocytes % (auto) 10.5 %; Monocytes # (auto) 1.09 K/uL (0.11-0.59); Monocytes % (auto) 8.7 %; Neutrophils # (auto) 9.64 K/uL (1.40-6.50); Neutrophils % (auto) 76.9 %; Polychromasia 1+
[2024-08-05 07:45] VITALS: BP 167/83; PULSE 77; TEMP 98.6; O2SAT 90
[2024-08-05] MEDS: METOPROLOL SUCC 25MG EXT REL TAB PO SCH (08:18)
[2024-08-05] MEDS: PANTOprazole 40 MG TAB PO SCH (08:18)
[2024-08-05] MEDS: ATORVASTATIN 40 MG TAB PO SCH (08:18)
[2024-08-05] MEDS: CEROVITE ADV FORMULA TAB PO SCH (08:18)
[2024-08-05] MEDS: FUROSEMIDE 40 MG TAB PO SCH (08:18)
[2024-08-05] MEDS: amLODIPine BESYLATE 5 MG TAB PO SCH (08:18)
[2024-08-05] MEDS: CLOPIDOGREL BISULFATE 75 MG TAB PO SCH (08:18)
[2024-08-05] MEDS: FINASTERIDE 5 MG TAB PO SCH (08:19)
[2024-08-05] MEDS: ATROPINE SULFATE 1% OP SOLN 5 ML BTL OPL SCH (08:19)
[2024-08-05] MEDS: MULTIVITAMIN TAB PO SCH (08:19)
[2024-08-05] MEDS: VENLAFAXINE HCL XR 150 MG CAPXR PO SCH (08:19)
--- NOTE | 2024-08-05 08:39 | Orthopedic Progress Note ---
Date of Service August 05, 2024 Assessment & Plan (1) Status post left hip replacement: (2) Aftercare following left hip joint replacement surgery: Plan 69-year-old gentleman POD# 1 s/p left total hip replacement, doing well overall. Pain is relatively well-controlled. Medically stable. Prosthetic hip is located. He is neurologically intact. Plan: 1. DVT prophylaxis w/ thigh-high TEDs, SCDs, Plavix 75 mg daily. 2. PT/OT as tolerated. WBAT on L LE. Left anterior approach total hip precautions/protocol. 3. Pain control doing well with current pain regimen. 4. Disposition - plan to D/C home w/ [facility] later today once cleared by PT/OT. 5. F/u as scheduled w/ first post-op visit. Subjective Patient is POD# 1 s/p left total hip arthroplasty by Dr. Mccann on 08/04/2024. Patient says his pain is well-controlled this morning. Denies CP, SOB, N/V, L LE paresthesia; does have baseline neuropathy. He has [email or web address] arranged to come to the house for therapy. Patient says that he will be ready to go home today. Review of Systems All systems reviewed & are unremarkable except as noted in HPI & below. Physical Exam GENERAL: AA&Ox3, NAD. Pleasant, affect is calm. Sitting in bed and appears comfortable. RESPIRATORY: Normal respiratory effort with no signs of distress. CHEST/AXILLA: Chest movement symmetrical. No deformities noted. CARDIOVASCULAR: No edema noted. SKIN: [place], warm and dry. MS/EXTREMITY: Hip Prevena vac c/d/i; good seal/suction noted. SHARAN hose donned. Thigh is soft, supple. Leg lengths are equal. + ankle dorsi/plantarflexion. NVI distally. Calf soft/NT. PT/DP pulses intact, 2+. Results & Data Results & Data Laboratory Results . Laboratory Results - last 24 hr 08/04/24 08/04/24 08/04/24 11:19 16:39 20:09 WBC RBC Hgb Hct MCV MCH MCHC RDW Std Deviation RDW Coeff of Juan Manuel Plt Count MPV Immature Gran % (Auto) Neut % (Auto) Lymph % (Auto) [place] % (Auto) Eos % (Auto) Baso % (Auto) Neut # (Auto) Lymph # (Auto) [place] # (Auto) Eos # (Auto) Baso # (Auto) Immature Gran # (Auto) Polychromasia Sodium Potassium Chloride Carbon Dioxide Anion Gap BUN Creatinine Est Cr Clr Drug Dosing eGFR BUN/Creatinine Ratio Glucose POC Glucose 197 H 238 H 227 H Calcium 08/05/24 08/05/24 05:50 07:45 WBC 12.54 H RBC 3.40 L Hgb 11.6 L Hct 33.5 L MCV 98.5 MCH 34.1 H MCHC 34.6 RDW Std Deviation 53.1 H RDW Coeff of Juan Manuel 14.7 H Plt Count 245 MPV 10.3 Immature Gran % (Auto) 0.5 Neut % (Auto) 76.9 Lymph % (Auto) 10.5 [place] % (Auto) 8.7 Eos % (Auto) 3.3 Baso % (Auto) 0.1 Neut # (Auto) 9.64 H Lymph # (Auto) 1.32 [place] # (Auto) 1.09 H Eos # (Auto) 0.42 Baso # (Auto) 0.01 Immature Gran # (Auto) 0.06 Polychromasia 1+ Sodium 135 L Potassium 4.4 Chloride 98 Carbon Dioxide 32 Anion Gap 5 BUN 17 Creatinine 1.36 Est Cr Clr Drug Dosing 73.2 eGFR 57.04 BUN/Creatinine Ratio 12.5 Glucose 113 H POC Glucose 139 H Calcium 9.0 Diagnostic Findings . Hip X-Ray 08/04/24 07:00 FL hip LT 1V CLINICAL HISTORY: LT ANTERIOR HIP COMPARISON STUDY: None FLUOROSCOPY TIME: 27 seconds FLUOROSCOPY IMAGES: 1 EXPOSURE DOSE: 4.2 mGy FINDINGS: Fluoroscopy was provided for placement of left hip prosthesis. IMPRESSION: Intraoperative fluoroscopy. ACT 112: Negative or not required by law. Electronically signed by: Geremias Swift M.D. 08/04/2024 9:41 AM Hip/Pelvis X-Ray 08/04/24 09:20 XR hip 1V LT w pelvis CLINICAL HISTORY: IN PACU - Post Surgical COMPARISON: Fluoroscopy earlier today FINDINGS: Bilateral hip prostheses show no hardware complication. There is a small osseous density adjacent to the left acetabulum. There is expected soft tissue gas. Skin jerrell are present laterally. IMPRESSION: Unremarkable postoperative exam. ACT 112: Negative or not required by law. Electronically signed by: Geremias Swift M.D. 08/04/2024 9:51 AM PG Care Time/CCT Total # of Minutes Spent Total Time Spent with Patient: Total time spent is greater than 50% in coordination of care (as documented) at patient's floor/unit and/or counseling patient: Coding [place] [address] SUB INP/OBS CARE 25MIN Patient Type Established History Problem Focused Exam Expanded Problem Focused Medical Decision Making Low Complexity Diagnoses Status post left hip replacement Z96.642 Aftercare following left hip joint replacement surgery Z47.1; Z96.642
--- NOTE | 2024-08-05 10:09 | Discharge Summary ---
Date of Service August 05, 2024 Admission HPI (Per Admitting) 07/11/2024 OV: Damon is a 68-year-old male who I did a right hip replacement on about 10 years ago. He has done well with that. Unfortunately, he is now dealing with left hip pain. X-rays and clinical exam have been diagnostic for advanced arthritis of the left hip. After failing conservative treatment, he presents to the office today to discuss hip replacement surgery. Admission Exam (Per Admitting) Appearance:This is a well-developed, well-nourished male in no apparent distress.Musculoskeletal:Physical exam of the left hip shows decreased range of motion and crepitus throughout. Pain with forced internal and external rotation. Principal Diagnosis Same as "Discharge Diagnosis" noted below under Discharge Instructions. Discharge Exam GENERAL: AA&Ox3, NAD. Pleasant, affect is calm. Sitting in bed and appears comfortable. RESPIRATORY: Normal respiratory effort with no signs of distress. CHEST/AXILLA: Chest movement symmetrical. No deformities noted. CARDIOVASCULAR: No edema noted. SKIN: [place], warm and dry. MS/EXTREMITY: Hip Prevena vac c/d/i; good seal/suction noted. SHARAN hose donned. Thigh is soft, supple. Leg lengths are equal. + ankle dorsi/plantarflexion. NVI distally. Calf soft/NT. PT/DP pulses intact, 2+. Discharge Data Consultations 08/04/24 11:41 Consult Internal Medicine Routine Procedures Performed Operation Date: 08/04/24 07:00 Actual Procedures p Left Anterior Total Hip Arthroplasty(Left) - Norberto Mccann DO Ordered Studies 08/04/24 07:00 FL hip LT 1V Routine Hospital Course (1) Status post left hip replacement: (2) Aftercare following left hip joint replacement surgery: Plan On August 04, 2024 Damon arrived at [facility] operating room and underwent a left total hip replacement without complications. Patient had a spinal anesthetic for the procedure. Postoperatively, patient was transferred to the general orthopedic floor in stable condition and eventually started onto his home dose of Plavix for DVT prophylaxis as appropriate. Patient's hospital course was uneventful. On postoperative day #1, patient's vital signs were stable and pain was well-controlled. Patient was able to participate well with physical therapy, safely performing the necessary ambulation and range of motion exercises and properly demonstrating ADL tasks. Patient was then discharged home in stable condition, with [facility] to begin. Patient will follow-up with orthopedics in 2 to 3 weeks for postoperative care. PG Care Time/CCT Total # of Minutes Spent Total Time Spent with Patient: Total time spent is greater than 50% in coordination of care (as documented) at patient's floor/unit and/or counseling patient: Discharge Plan Discharge Items Patient Disposition: Home - Home Health Services Reason For Visit: Arthritis Hip Left Discharge Diagnosis: Status post left hip replacement Activity: Per Instructions section Non-emergency contact: Surgeon Call non-emergency contact if: your pain is not controlled, your temperature is above 101, your wound has increased redness and your wound has increased drainage Follow-up/Referrals: Neo Valle PA-C [Physician Human Resources Operations Director] - (as scheduled on 08/22/24 @ 10:45) Farzad Hatfield DO [Primary Care Provider] - Diet: Carb Consistent or DM2 Addtl Attending Provider Instructions: Activity and Therapy Recommendations: * If you are using [facility] then therapy will be provided at your home until they feel you have accomplished all of your goals. * If you are using [facility] then Physical Therapy will be provided until they feel you are ready to start Outpatient Physical Therapy. * If you are not using home therapy then Outpatient Physical Therapy should start about 3-5 days from your day of surgery. Therapy will last about 6-10 weeks * You were shown a series of exercises in the hospital. Do these exercises three times each day including the exercises you were shown in physical therapy. * Get up and walk several times each day.~ For the first four weeks, try not to stand or walk for more than one hour at a time. If you do stand or walk for more than one hour, you will not hurt anything, but your leg will likely swell.~~ * As you feel comfortable, you may change from the walker or crutches to a cane and~then to independent walking. Medications: * Narcotic You will likely be sent home from the hospital with a prescription for the narcotic pain medication that worked best throughout your stay. * Cefadroxil -take the antibiotic twice a day for 10 days to help prevent infection. * Aspirin take aspirin 81 mg twice a day for 6 weeks. Continue your Plavix as well. * Other medications may be prescribed for specific circumstances. If you have any questions, please call the office at . * Resume previous home medications unless otherwise instructed TEDs/Elastic Stockings: The white elastic stockings help limit swelling and prevent blood clots from f orming in your legs. The more you wear them, the more they work. Wear them for six weeks. Dressing Care: Leave the Prevena VAC dressing in place for 7 days. After 7 days you may remove the dressing. If the incision is not draining then you may leave the jerrell open to air. If there is a little bit of drainage or if the jerrell are getting stuck on your clothing then cover the incision with a dry dressing. The jerrell will be removed at your 2 week follow-up appointment. Showering: You may shower with the Prevena VAC dressing in place. Do not let the shower spray hit the dressing directly. Pat the Prevena VAC dressing dry. If the dressing becomes wet underneath, then simply remove the dressing. Keep the incision dry until you are 7 days out from the day of surgery. After 7 days you may remove the Prevena VAC dressing and shower with the jerrell exposed. Let soapy water run over the jerrell and pat them dry. Do not scrub or soak the incision. Diet: You may resume your previous diet. Things To Watch For: * Drainage from the incision site that occurs more than one week after your surgery. * Increased redness at the incision site. * Fever above 102 degrees Fahrenheit. * Unusual chest pain or shortness of breath. * Call [facility] at with any of the above problems Follow-Up Visit: Follow-up with Dr. Mccann's office 2-3 weeks after your day of surgery. We will remove your jerrell and answer any questions. If you have any additional questions or concerns, Dr Mccann is usually in the office at the same time and will be available An appointment was probably scheduled when you signed-up for surgery in the office. If you have any questions call Office Instructions: More detailed instructions as well as Frequently Asked Questions were provided in a folder by our office when you signed-up for surgery. Please review these instructions when you get home. If you have any further questions or concerns, please feel free to call the office at [phone] Pending Studies at Discharge: No Stand-Alone Forms: [facility], Pain - Opioid Pain Management, Smoking Cessation Medications and DC Order Prescriptions: New cefadroxil 500 mg capsule 500 mg PO BID 10 Days Qty: 20 0RF oxycodone 5 mg tablet 5 mg PO Q6H PRN (Reason: pain) Qty: 30 0RF Continued clopidogrel [Plavix] 75 mg tablet 75 mg PO QAM finasteride 5 mg tablet 5 mg PO QAM folic acid 1 mg tablet 1 mg PO QAM levothyroxine 125 mcg tablet 125 mcg PO QAM Rx Instructions: TAKE THIS MEDICATION AT LEAST 30 MINUTES BEFORE EATING OR ANY OTHER MEDICATION tamsulosin [Flomax] 0.4 mg capsule 0.4 mg PO HS coQ10 (ubiquinol) [Qunol Vitor CoQ10] 100 mg capsule 0 mg PO UD Patient Comments: just ran out and probably not going to re start PreserVision AREDS 2 Plus MV 200 mcg-15 mcg- 5 mg-1 mg capsule 1 cap PO DAILY losartan 50 mg tablet 50 mg PO BID atorvastatin 40 mg Tablet 40 mg PO QAM omeprazole 20 mg Capsule,Delayed Release(Dr/Ec) 20 mg PO QAM Rx Instructions: TAKE THIS MEDICATION ONCE DAILY ONE HOUR BEFORE FIRST MEAL OF THE DAY metoprolol succinate 25 mg Tablet Extended Release 24 Hr 25 mg PO QAM potassium chloride 20 mEq tablet extended release 20 meq PO QAM furosemide 40 mg tablet 40 mg PO BID Patient Comments: 1 every morning and sometimes total 2-3 per day. Rx Instructions: TAKE ADDITIONAL 40 MG ONLY DIRECTED BY PROVIDER amlodipine 5 mg tablet 5 mg PO QAM insulin aspart U-100 100 unit/mL solution 0 unit subcut CONTINOUS Rx Instructions: DIRECTED VIA INSULIN PUMP multivitamin Tablet 1 tab PO QAM venlafaxine 150 mg capsule,extended release 24hr 150 mg PO QAM nitroglycerin 0.4 mg tablet, sublingual 0.4 mg sublingual DIRECTED PRN (Reason: Chest Pain) Patient Comments: have never needed gabapentin 300 mg capsule 300 mg PO BID atropine 1 % drops 1 drp OPL DAILY Changed aspirin 81 mg Tablet,Delayed Release (Dr/Ec) 81 mg PO BID Qty: 0 0RF Admission Data Admit Date/Time: 08/04/24 09:20 Attending Provider: Norberto Mccann Admit Provider: Norberto Mccann Primary Care Provider: Farzad Hatfield Other Providers: Jhonny,[facility]; Josef Olivo Other Interventions: Discharge Summary Assessment (RN) Last Done: 08/05/24 10:08
--- NOTE | 2024-08-05 13:46 | Hospitalist Progress Note ---
Date of Service August 05, 2024 Assessment & Plan (1) Status post left hip replacement: (2) Type 1 diabetes mellitus: (3) CAD (coronary artery disease): (4) Chronic heart failure with preserved ejection fraction (HFpEF): (5) PAF (paroxysmal atrial fibrillation): Plan This is a 68 yr old F who has a significant PMH of T1DM, DM peripheral angiopathy, HTN, HLD, Chronic HFpEF, CHANTELL on CPAP, moderate persistent asthma, PAF, GERD, BPH, Morbid obesity, acquired absence of the R hand, Alcohol dependence, depression who presents for elective Left anterior total hip arthroplasty by Dr. Mccann. #S/P L SHANNAN by Dr. Mccann, EBL 300ml -pain/wound management per ortho -activity and therapy as prescribed by ortho -monitor hemoglobin post op -discussed the importance of going home and staying hydrated #Chronic HFpEF #CAD #PAF #HTN #HLD -on asa, statin, plavix, lasix, amlodipine, losartan, metoprolol -daily weights, strict I and O, pre op echo reviewed, preserved EF -he reports baseline weight is ~ 285# CHANTELL: CPAP at HS T1DM: wears insuin pump, last a1c 7.4 in June I spent a total of 35 minutes in direct patient care, including [id number] time with the patient and/or family, reviewing medical records, ordering and reviewing diagnostic tests, and coordinating care with other healthcare providers. This time includes: history taking, physical examination, medical decision making, counseling, ECG interpretation, imaging interpretation, lab interpretation, orders, and education, excluding time spent in the performance of separately billed services. Admission and Anticipated Discharge Date Admission Date: August 04, 2024 Subjective Patient seen and examined at bedside. Mr. Hatfield is doing well today, and looking forward to going home today Review of Systems Review of Systems: CONSTITUTIONAL: Patient denies fevers, chills, sweats and weight changes. EYES: Patient denies any visual symptoms. EARS, NOSE, AND THROAT: No difficulties with hearing. No symptoms of rhinitis or sore throat. CARDIOVASCULAR: Patient denies chest pains, palpitations, orthopnea and paroxysmal nocturnal dyspnea. RESPIRATORY: No dyspnea on exertion, no wheezing or cough. GI: No nausea, vomiting, diarrhea, constipation, abdominal pain, hematochezia or melena. : No urinary hesitancy or dribbling. No nocturia or urinary frequency. No abnormal urethral discharge. MUSCULOSKELETAL: No myalgias or arthralgias. NEUROLOGIC: No chronic headaches, no seizures. Patient denies numbness, tingling or weakness. PSYCHIATRIC: Patient denies problems with mood disturbance. No problems with anxiety. ENDOCRINE: No excessive urination or excessive thirst. DERMATOLOGIC: Patient denies any rashes or skin changes. Physical Exam Physical Exam: Gen: A&O 3 NAD HEENT: NCAT, EOMI, not icteric. External ears normal. No rhinorrhea. Moist mucous membranes. Neck: Supple, full range of motion, no observable masses, No meningeal sign. Lungs: No Respiratory distress. CV: RRR, no edema. Abdomen: Soft, nondistended, No rebound tenderness. MSK: No joint swelling, no redness. Skin: No rashes, petechiae, lesions. Normal color per patient. Neuro: Normal Gait, Grossly intact. Psych: Appropriate for situation. Results & Data Results & Data Vital Signs (Past 12 Hours) Vital Signs Temp Pulse Pulse Resp BP Pulse Ox O2 Del Method 08/05/24 08:00 Room Air, CPAP 08/05/24 07:45 37.0 C 77 18 167/83 H 90 Room Air 08/05/24 03:44 36.9 C 64 18 168/89 H 93 CPAP Laboratory Results -personally reviewed, leukocytosis likely reactive, Hgb close to prior baselines, creatinine close to baseline
== END 2024-08-05 11:51 | disposition home health service (06) ==
LOC: ASU 05:23 → 3E 05:23
DX: G47.33 Obstructive sleep apnea (adult) (pediatric); E10.51 Type 1 diabetes mellitus with diabetic peripheral angiopathy without gangrene; N40.0 Benign prostatic hyperplasia without lower urinary tract symptoms; E66.01 Morbid (severe) obesity due to excess calories; Z87.891 Personal history of nicotine dependence; K21.9 Gastro-esophageal reflux disease without esophagitis; I48.0 Paroxysmal atrial fibrillation; Z79.890 Hormone replacement therapy; G89.29 Other chronic pain; E10.22 Type 1 diabetes mellitus with diabetic chronic kidney disease; M16.12 Unilateral primary osteoarthritis, left hip; Z79.899 Other long term (current) drug therapy; J45.40 Moderate persistent asthma, uncomplicated; J44.9 Chronic obstructive pulmonary disease, unspecified; Z79.02 Long term (current) use of antithrombotics/antiplatelets; Z79.82 Long term (current) use of aspirin; Z79.4 Long term (current) use of insulin; Z89.111 Acquired absence of right hand; I25.10 Atherosclerotic heart disease of native coronary artery without angina pectoris; N18.9 Chronic kidney disease, unspecified; I50.9 Heart failure, unspecified; I11.0 Hypertensive heart disease with heart failure; Z68.41 Body mass index [BMI] 40.0-44.9, adult; I73.9 Peripheral vascular disease, unspecified

== ENCOUNTER 2025-02-14 10:42 | Inpatient (IN) ==
[2025-02-14] MEDS: SODIUM CHLORIDE 0.9% 1,000 ML IV SCH (11:02)
--- NOTE | 2025-02-14 11:08 | XRay Report ---
XR chest 1V portable CLINICAL HISTORY: syncope COMPARISON STUDY: 10/04/2024 FINDINGS: Stable mild cardiomegaly without perivascular congestion. Stable moderate hiatal hernia. No consolidation or pleural effusion seen. No pneumothorax. Right PICC line tip is in the SVC. Stable o ld lower lateral left rib fracture. IMPRESSION: No acute findings. ACT 112: Negative or not required by law. Electronically signed by: Geremias Swift M.D. 02/14/2025 11:07 AM
[2025-02-14 11:26] LABS: Hematocrit (blood only) 18.7 % (42.0-52.0); Hemoglobin 5.7 g/dl (14.0-18.0); Mean Corpuscular Hemoglobin 26.5 pg (25.0-34.0); Mean Corpuscular Volume 87.0 fL (80.0-100.0); RDW Standard Deviation 56.2 fL (36.4-46.3); Red Blood Count 2.15 M/uL (4.70-6.10); White Blood Count 10.13 K/ul (4.8-10.8)
[2025-02-14 11:27] LABS: Platelet Count 338 K/uL (130-400)
[2025-02-14] MEDS ORDERED: SODIUM CHLORIDE 0.9% 100 ML IV PRN ×2 (11:27→12:39)
[2025-02-14 11:40] LABS: Alanine Aminotransferase 8.0 U/L (7-52); Albumin Globulin Ratio 1.1 (0.9-2); Alkaline Phosphatase 156.0 U/L (34-104); Anion Gap 8.0 (3-11); Bilirubin,Total 0.3 mg/dl (0.2-1.0); Blood Urea Nitrogen 56.0 mg/dl (6-23); Calcium 8.6 mg/dl (8.6-10.3); Carbon Dioxide 22.0 mmol/L (21-32); Chloride 106.0 mmol/L (98-107); Creatinine Clr Calc Pharmacy 81.1 ml/min; Globulin 3.3 gm/dl (2.5-4.0); Glucose 184.0 mg/dl (70-99(Fasting)); Immature Granulocytes # (auto) 0.07 K/uL (0.01-0.20); Immature Granulocytes % (auto) 0.7 %; Magnesium 2.1 mg/dl (1.7-2.4); Ovalocytes 1+; Polychromasia 1+; Potassium 3.8 mmol/L (3.5-5.1); Sodium 136.0 mmol/L (136-145); Total Protein 6.8 gm/dl (6.0-8.3)
--- NOTE | 2025-02-14 12:07 | XRay Report ---
XR hip LT 2V w pelvis CLINICAL HISTORY: eval hip replacement COMPARISON: 10/04/2024 FINDINGS: Visualized portion of the right hip prosthesis shows no hardware complication. There is a partially healed fracture proximal shaft of the left femur with improved alignment compared to the pr ior exam. There is lucency around the distal aspect of the left hip prosthesis which could represent residual lucency from the fracture or hardware loosening. There is heterotopic ossification surroundi ng the proximal to mid shaft of the left femur. No new fracture or dislocation seen. IMPRESSION: Pelvis and left hip as described. ACT 112: Negative or not required by law. Electronically signed by: Geremias Swift M.D. 02/14/2025 12:05 PM
--- NOTE | 2025-02-14 12:27 | Electrocardiogram Report ---
Test Reason : Blood Pressure : */* mmHG Vent. Rate : 80 BPM Atrial Rate : 80 BPM P-R Int : 200 ms QRS Dur : 88 ms QT Int : 392 ms P-R-T Axes : 47 46 35 degrees QTcB Int : 452 ms Sinus rhythm with Premature atrial complexes with Aberrant conduction Otherwise normal ECG When compared with ECG of 04-Oct-2024 15:35, Premature ventricular complexes are no longer Present Aberrant conduction is now Present Confirmed by Ulises Cabrera ([id number]) on 02/14/2025 12:26:53 PM Referred By: Confirmed By: Ulises Cabrera
[2025-02-14] MEDS: OPTIRAY 320 125ml IV ONE (13:17)
--- NOTE | 2025-02-14 14:02 | CT Scan Report ---
CT femur LT w con CLINICAL HISTORY: eval for bleeding hematoma COMPARISON STUDY: X-ray of 02/14/2025 FINDINGS: There is spray artifact from the metallic hip prosthesis. There is a comminuted minimally d isplaced minimally angulated ununited fracture proximal shaft of the left femur adjacent to the femor al component with surrounding heterotopic ossification. No other fracture or dislocation seen at the left femur. There is a small area of relative low density just lateral to the proximal femoral shaft which could represent a small amount of low-density fluid or artifact. No evidence of soft tissue hem atoma seen. IMPRESSION: 1. No evidence of hematoma. 2. Ununited fracture at the proximal shaft left femur as described. ACT 112: Negative or not required by law. Electronically signed by: Geremias Swift M.D. 02/14/2025 2:00 PM
--- NOTE | 2025-02-14 14:05 | CT Scan Report ---
CT ANGIOGRAM OF THE CHEST CLINICAL HISTORY: Syncopal episode. COMPARISON STUDY: Chest radiograph performed earlier today. Chest CT September 13, 2024. TECHNIQUE: Following the IV administration of 112 cc of Optiray 320, CT angiogram of the chest was pe rformed from the upper abdomen to the thoracic inlet utilizing the pulmonary embolus protocol. Images are reviewed in the axial, sagittal, and coronal planes. 3-D MIPS images are created and assessed. I V contrast was administered without complication. A dose lowering technique was utilized adhering to the principles of ALARA. CT DOSE: 3754.35 mGy.cm FINDINGS: No pulmonary emboli are identified. There is no thoracic aortic dissection. Mild cardiomega ly is unchanged. Moderate to large hiatal hernia with partially intrathoracic stomach is again noted. Mildly enlarged subcarinal lymph node is unchanged since prior CT. This is indeterminate but likely benign. There is no pneumothorax or pleural effusion. There is no consolidation to suggest pneumonia. No acute fractures within the bony thorax are present. Visualized portions of the upper abdomen demo nstrate small layering gallstones within the gallbladder. There is no evidence for acute cholecystiti s. IMPRESSION: 1. No pulmonary emboli identified. 2. No acute intrathoracic findings. 3. Mild cardiomegaly. 4. Moderate to large hiatal hernia with partially intrathoracic stomach. ACT 112: Negative or not required by law. Electronically signed by: Eddie Stephens M.D. 02/14/2025 2:03 PM
--- NOTE | 2025-02-14 14:53 | Emergency Department Note ---
Impression & Plan Acute on chronic anemia, Syncope, BOGGS (dyspnea on exertion) ED Provider Note NAME: ANNMARIE MURDOCK AGE: 69 SEX: M : 1955 ARRIVES VIA: Ambulance INFORMANT: Patient, EMS ED PROVIDER(S): Tony Stockton DO CHIEF COMPLAINT: syncope HPI: This is a 69-year-old male with complex past medical history including recent revision of his left hip presenting to [facility] for further evaluation of syncopal episodes. Patient is accompanied by EMS who provide additional history. EMS reports the patient currently resides at [facility] for rehabilitation services after a revision of his left total hip replacement. The patient reports he has not felt well over the last couple days he. He states that he has syncopal episodes when attempting to exert himself. He states there are prodromal symptoms including warmth and lightheadedness. Patient has noted worsening dyspnea on exertion as well. He denies any hematemesis, hemoptysis, hematuria, hematochezia or melena. He does not have any other symptoms at this time. He states that he had a little bit of pain over his operation site. They deny fever or chills. No cough or congestion. Denies chest pain or palpitations. They deny abdominal pain, nausea and vomiting. No urinary complaints. No recent changes in bowel movements. Patient denies recent changes in medications or OTC supplements. Patient offers no other complaints, today. ADDITIONAL HISTORY OBTAINED: Per HPI Chronic Medical/Social Conditions Affecting Care: Per HPI PAST MEDICAL HISTORY: See Below PAST SURGICAL HISTORY: See Below FAMILY HISTORY: See Below SOCIAL HISTORY: See Below HOME MEDICATIONS: See Below ALLERGIES: See Below VITALS: See Below PHYSICAL EXAMINATION: GENERAL: Sitting up in bed, alert, well appearing, well nourished, no distress, non-toxic EYE EXAM: normal conjunctiva. PERRL and EOM's grossly intact. OROPHARYNX: no exudate, no erythema, lips, buccal mucosa, and tongue normal and mucous membranes are moist NECK: supple, no nuchal rigidity, no adenopathy, non-tender LUNGS: Clear to auscultation. Normal chest wall mechanics HEART: no murmurs, regular rate, regular rhythm ABDOMEN: abdomen soft, non-tender, no masses, no rebound or guarding. BACK: Back is symmetrical on inspection and there is no deformity, no midline tenderness, no CVA tenderness. SKIN: no rashes and no bruising UPPER EXTREMITIES: upper extremities are grossly normal. LOWER EXTREMITIES: No pitting edema. Incision is c/d/i over the lateral L hip. He does have a fullness of the thigh, likely postoperative hematoma. NEURO EXAM: Normal sensorium, GCS 15, normal speech, no gross weakness of arms, no gross weakness of legs. MEDICAL DECISION MAKING: Differential diagnoses includes but not limited to ACS, dysrhythmia, stroke, head injury, anemia, AAA, infectious etiology, vasovagal, situational, electrolyte derangements, dehydration, PE, orthostasis, postoperative hematoma, postoperative infection In summary, this is a 69 year old male who presented with multiple syncopal episodes. Differential as above. Nursing notes and pertinent past medical records reviewed. Vital signs reviewed and the patient is afebrile and HDS but HR >90. While the patient does not have a fever, I will be highly suspicious of infectious etiologies given her is shelter status and recent complicated postoperative course with multiple infections. History and presentation revealed worsening lightheadedness with syncopal episodes. History is also concerning for worsening dyspnea on exertion. The patient could be dehydrated. He is only on dual antiplatelet therapy and I would consider pulmonary embolism given the recent postoperative period and shelter status. Given his complaints of syncopal episodes plus dyspnea on exertion, I do believe he is moderate to high risk for pulmonary embolism and we will obtain a CT PE study. Plan for basic labs as well. Will provide gentle IV fluid resuscitation while in the emergency department. Diagnostics interpreted by me include EKG and cardiac monitoring as listed below: -Cardiac Monitoring: An order was placed for continuous cardiac monitoring. The monitor shows a rate of 80-90s with regular rhythm. -ECG: EKG independently interpreted by me reveals normal sinus rhythm at a ventricular rate of 82 bpm. There is 1 PVC present on this rhythm strip. No significant ST segment changes to suggest STEMI. Intervals are otherwise of normal limits. Patient completed laboratory studies and imaging. CXR independently interpreted by me reveals no evidence of focal consolidation to suggest pna. No large pneumothorax or pleural effusion. Results independently interpreted by me are acute anemia from baseline. While he is anemic this is downtrended around 2 g. I again discussed with the patient he has not had any evidence of GI bleeding or bleeding in the urine. BUN:Cr is high and would consider upper GI bleed. I do believe this likely explains his symptoms but difficult to exclude other etiologies. We will still proceed with a CT PE study. I also believe it would be necessary to obtain imaging of his left femur and hip given concerns on physical examination for possible hematoma. I would want to ensure that there is not acute bleeding going on within the left hip. CT PE was independently interpreted by me as negative for saddle embolism. CT of the lower extremity did not reveal acute bleeding from the postoperative site. The patient was found to have symptomatic anemia. The patient likely has high risk syncope. He has CT PE study that was unremarkable. Patient will require further transfusion of packed red blood cells and should be observed in the hospital overnight. Patient was agreeable to this. He was subsequently admitted. Ultimately, the decision was made to admit the patient for symptomatic anemia with high risk syncope. I discussed the case with the hospitalist service via telephone/Tiger[employer] and they are agreeable to admit the patient to their services. Based on the above, including the patient's age, coexisting illnesses, labs, imaging, and exam findings the decision to treat as an inpatient. I discussed the patient with the hospitalist team who recommended admission to their services. They received the medications, treatments, interventions indicated above and their condition remained stable. I discussed my findings with the patient and their family and they understand and agree with the treatment plan. All patient / family questions were answered to their satisfaction. Consults/Care Managements Discussions: Per [facility] ER treatment provided: See above Procedures:none Critical Care: I have personally spent 32 minutes of critical care time in direct management of this patient. This includes bedside care, interpretation of diagnostic studies, and testing, discussion with consultants, patient, and family members, and other require inpatient management activities. This 32 minutes is in excess of all separately billable procedures. The chart was completed utilizing [employer] Speech voice recognition software. Grammatical errors, random word insertions, pronoun errors, and incomplete sentences are an occasional consequence of this system due to software limitations, ambient noise, and hardware issues. Any formal questions or concerns about the content, text, or information contained within the body of this dictation should be directly addressed to the physician for clarification. Past Med/Surg History Problem List (Updated 02/15/25 @ 07:10 by Tony Stockton DO) BOGGS (dyspnea on exertion) (Acute) Syncope (Acute) Acute on chronic anemia (Acute) Prosthetic joint infection of left hip Acute on chronic anemia Melena Acute hyponatremia (Acute) Dehiscence of wound (Acute) Alcohol intoxication (Acute) Non-ST elevation PA (NSTEMI) (Acute) Unspecified open wound, left thigh, initial encounter (Acute) Anemia (Acute) Syncope and collapse (Acute) Aftercare following left hip joint replacement surgery Status post left hip replacement Chronic venous insufficiency (Chronic) Balance disorder PAF (paroxysmal atrial fibrillation) Iron deficiency anemia Sleep apnea CPAP Loss of protective sensation of skin of foot Diabetic peripheral neuropathy associated with type 2 diabetes mellitus HTN (hypertension) CAD (coronary artery disease) F/U [facility] COPD (chronic obstructive pulmonary disease) (Chronic) Alcohol dependence (Chronic) Aortic root enlargement (Chronic) BPH (benign prostatic hyperplasia) (Chronic) GERD (gastroesophageal reflux disease) (Chronic) Medical History Osteoarthritis of left hip MGUS (monoclonal gammopathy of unknown significance) Liver mass CKD (chronic kidney disease) stage 3, GFR 30-59 ml/min Type 1 diabetes mellitus insulin pump Hypothyroidism BPH (benign prostatic hyperplasia) CAD (coronary artery disease) s/p NSTEMI 2016-see cardiology 06/29/24 note for catheterization details- medical management advised Sleep apnea CPAP-compliant History of seizures unknown details regarding dx, last one approx 2018. Unknown details regarding etiology. Has neurologist but mainly focus is on neuropathy per pt. Denies seizure medication. History of myocardial infarction (~2015) History of atrial fibrillation Frequent falls hx, has improved. Balance disorder Neuropathy Chronic venous insufficiency hx sx. COPD (chronic obstructive pulmonary disease) controlled, stable per pt-lost to f/u with [facility] pulmonology per chart review/patient-denies inhaler use History of pneumonia (2021) History of COVID-19 (2019) Iron deficiency anemia monitors Aortic root enlargement Poor historian Depression Hyperlipidemia HTN (hypertension) controlled, stable per pt Cataracts, both eyes [place] (hard of hearing) left ear worse History of colon polyps Hiatal hernia Dyspnea on effort Chronic heart failure with preserved ejection fraction (HFpEF) EF 50-55% Alcohol abuse Hyponatremia GERD (gastroesophageal reflux disease) controlled, stable per pt Dyslipidemia Surgical History History of ear surgery left History of eye surgery several right eye, hx injury. History of vascular surgery right for vericose veins. History of total right hip replacement History of endoscopy History of colonoscopy History of hand surgery BILAT HANDS-FINGER AMPUTATIONS History of cardiac cath 2020? [facility]-NO STENTS History of tonsillectomy and adenoidectomy Family History Other Cancer Diabetes Hypertension Social History Smoking Status: Former smoker Tobacco Type: Cigarettes Cigarettes Per Day: 30; Smoking End Date: Jan 05, 1995; Second Hand Exposure: No; Do You Dip or Chew Tobacco: No; Hx Alcohol Use: Yes Alcohol type: hard liquor Alcohol Intake Frequency Comment: 8 oz hard liquor daily per pt Hx Substance Use: No Preferred Language: Georgian Communication Ability: Effective Visual Impairment: Limited Hearing Ability: Hard of Hearing [place] Floors Installer Required: No Beliefs That Will Affect Care: None marital status: Current Living Situation: Spouse Current Living Situation Comment: Pt resides at home with , recently at [facility] for rehab current occupational status: employed 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, 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, 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 [employer] How many Children do You have: 3 How many Children do You have Comment: and child able to assist with care as needed Other Information That Helps Us Care for You: No Feels Safe at Home: Yes Safety Concerns: Feels Safe At This Time Diet Comment: tries to watch diabetic diet, during the past year weight has: remained stable Assistive Devices: CPAP and Wheelchair Allergies Allergies Allergy/AdvReac Type Severity Reaction Status Date / Time DEIDRE Inhibitors AdvReac Unknown Cough Verified 02/14/25 16:52 Home Meds Home Medications Medication Instructions Recorded Confirmed clopidogrel 75 mg tablet (Plavix) 75 mg PO QAM 02/04/18 02/14/25 finasteride 5 mg tablet 5 mg PO QPM 02/04/18 02/14/25 folic acid 1 mg tablet 1 mg PO QAM 02/04/18 02/14/25 levothyroxine 125 mcg tablet 125 mcg PO DAILYBB 02/04/18 02/14/25 tamsulosin 0.4 mg capsule (Flomax) 0.4 mg PO HS 02/04/18 02/14/25 losartan 50 mg tablet 50 mg PO QAM 05/13/18 02/14/25 atorvastatin 40 mg tablet 40 mg PO QAM 04/14/20 02/14/25 metoprolol succinate 25 mg 25 mg PO AMHS 04/14/20 02/14/25 tablet,extended release 24 hr amlodipine 5 mg tablet 5 mg PO QAM 07/12/20 02/14/25 insulin aspart U-100 100 unit/mL 0 unit subcut CONTINOUS 07/12/20 02/14/25 subcutaneous solution gabapentin 300 mg capsule 300 mg PO BID 03/13/21 02/14/25 nitroglycerin 0.4 mg sublingual 0.4 mg sublingual DIRECTED PRN 03/20/23 02/14/25 tablet Chest Pain venlafaxine 150 mg 150 mg PO QAM 03/20/23 02/14/25 capsule,extended release 24 hr mv-mn-folic 200 mcg-vit K 15 1 cap PO DAILY 04/12/24 02/14/25 mcg-lutein 5 mg-zeaxanthin 1 mg capsule (PreserVision AREDS 2 Plus Multivit) potassium chloride 20 mEq 20 meq PO AMHS 09/13/24 02/14/25 tablet,extended release(part/cryst) cyclosporine 0.05 % eye drops in a 1 drp OPB Q12H 02/14/25 02/14/25 dropperette (Restasis) furosemide 40 mg tablet 40 mg PO BID 02/14/25 02/14/25 pantoprazole 40 mg tablet,delayed 40 mg PO BID 02/14/25 02/14/25 release Previous Rx's Medication Instructions Recorded aspirin 81 mg tablet,delayed 81 mg PO BID #0 tabs 08/04/24 release L.acidop,casei,lactis,rham-B.lact,mily 1 cap PO DAILY #14 caps 09/15/24 625 mg (10 billion cell) capsule (Advanced Probiotic) thiamine HCl (vitamin B1) 100 mg 100 mg PO QAM #30 tabs 09/15/24 tablet Results & Data (ED) Vital Signs Vital Signs - 24 hr 02/14/25 10:54 02/14/25 12:44 02/14/25 14:00 Temperature 36.7 C Temperature Source Oral Pulse Rate 83 Pulse Rate [Apical] 87 86 Respiratory Rate 24 18 18 Respiratory Effort / Characteristics Non-Labored Spontaneous Non-Labored Spontaneous Non-Labored Spontaneous Respiratory Depth Normal Normal Normal Blood Pressure 116/61 Blood Pressure [Left Arm] 149/80 H 158/94 H Blood Pressure Mean 79 Blood Pressure Mean [Left Arm] 103 115 Blood Pressure Position Lying Blood Pressure Position [Left Arm] Lying Lying Pulse Oximetry 92 97 96 Oxygen Delivery Method Room Air Room Air Room Air Sepsis Recent Fever Within 48 Hours No Sepsis New/Unexplained Change in Mental Status No Sepsis Action Taken by Nursing No Action Required 02/14/25 14:51 Temperature Temperature Source Pulse Rate Pulse Rate [Apical] 87 Respiratory Rate 18 Respiratory Effort / Characteristics Non-Labored Spontaneous Respiratory Depth Normal Blood Pressure Blood Pressure [Left Arm] 168/91 H Blood Pressure Mean Blood Pressure Mean [Left Arm] 116 Blood Pressure Position Blood Pressure Position [Left Arm] Lying Pulse Oximetry 95 Oxygen Delivery Method Room Air Sepsis Recent Fever Within 48 Hours Sepsis New/Unexplained Change in Mental Status Sepsis Action Taken by Nursing Laboratory Data 02/15/25 02:33 02/14/25 10:52 Lab Results 02/14/25 02/14/25 Range/Units 10:52 11:55 WBC 10.13 (4.8-10.8) K/ul RBC 2.15 L (4.70-6.10) M/uL Hgb 5.7 L* (14.0-18.0) g/dl Hct 18.7 L* (42.0-52.0) % MCV 87.0 (80.0-100.0) fL MCH 26.5 (25.0-34.0) pg MCHC 30.5 L (32.0-36.0) g/dL RDW Std Deviation 56.2 H (36.4-46.3) fL RDW Coeff of Juan Manuel 17.9 H (11.5-14.5) % Plt Count 338 (130-400) K/uL MPV 10.4 (9.4-12.4) fL Immature Gran % (Auto) 0.7 % Neut % (Auto) 69.7 % Lymph % (Auto) 15.7 % [place] % (Auto) 10.4 % Eos % (Auto) 2.5 % Baso % (Auto) 1.0 % Neut # (Auto) 7.07 H (1.40-6.50) K/uL Lymph # (Auto) 1.59 (1.20-3.40) K/uL [place] # (Auto) 1.05 H (0.11-0.59) K/uL Eos # (Auto) 0.25 (0.00-0.50) K/uL Baso # (Auto) 0.10 (0.00-0.20) K/uL Immature Gran # (Auto) 0.07 (0.01-0.20) K/uL Polychromasia 1+ Ovalocytes 1+ Sodium 136 (136-145) mmol/L Potassium 3.8 (3.5-5.1) mmol/L Chloride 106 (98-107) mmol/L Carbon Dioxide 22 (21-32) mmol/L Anion Gap 8 (3-11) BUN 56 H (6-23) mg/dl Creatinine 1.18 (0.6-1.4) mg/dl Est Cr Clr Drug Dosing 81.1 ml/min eGFR 67.63 BUN/Creatinine Ratio 47.5 H (10-20) Glucose 184 H (70-99(Fasting)) mg/dl Lactate 1.5 (0.4-2.0) mmol/L Calcium 8.6 (8.6-10.3) mg/dl Magnesium 2.1 (1.7-2.4) mg/dl Total Bilirubin 0.3 (0.2-1.0) mg/dl AST 14 (13-39) U/L ALT 8 (7-52) U/L Alkaline Phosphatase 156 H (34-104) U/L Troponin I High Sens 7.3 (0-20) pg/ml Total Protein 6.8 (6.0-8.3) gm/dl Albumin 3.5 (3.4-5.0) gm/dl Globulin 3.3 (2.5-4.0) gm/dl Albumin/Globulin Ratio 1.1 (0.9-2) Blood Type B Negative Antibody Screen NEGATIVE Crossmatch See Detail Administered Medications Finasteride (Finasteride 5 Mg Tab) 5 mg PO QPM YUNIOR Stop: 03/16/25 20:59 Last Admin: 02/14/25 21:27 Dose: 5 mg Documented By: PATITO Gabapentin (Gabapentin 300 Mg Cap) 300 mg PO BID YUNIOR Stop: 03/16/25 20:59 Last Admin: 02/14/25 21:27 Dose: 300 mg Documented By: KRT Pantoprazole Sodium 40 mg/ (Dextrose) 100 mls @ 20 mls/hr IV Q5H YUNIOR Stop: 03/16/25 17:14 Last Admin: 02/15/25 02:42 Dose: 8 mg/hr, 20 mls/hr Documented By: Infusion: 02/15/25 01:31 Dose: Infused Documented By: Admin: 02/14/25 20:31 Dose: 8 mg/hr, 20 mls/hr Documented By: Infusion: 02/14/25 20:31 Dose: Infused Documented By: Admin: 02/14/25 17:44 Dose: 8 mg/hr, 20 mls/hr Documented By: NITA Vancomycin HCl (Vancomycin Hcl / Nss) 1,000 mg in 270 mls @ 200 mls/hr IV Q12H YUNIOR Stop: 02/28/25 21:59 Last Infusion: 02/15/25 00:41 Dose: Infused Documented By: Admin: 02/14/25 22:54 Dose: 200 mls/hr Documented By: KRT Insulin Aspart (Insulin Aspart Per Unit Charge) 0 units SC Q6 YUNIOR Stop: 03/17/25 00:00 Last Admin: 02/15/25 06:42 Dose: 16 units Documented By: PATITO Co-signed By: BK Admin: 02/15/25 00:29 Dose: 10 units Documented By: PATITO Co-signed By: CR Insulin Glargine (Lantus Per Unit Charge) 20 units SQ BID YUNIOR Stop: 03/16/25 20:59 Last Admin: 02/14/25 21:25 Dose: 20 units Documented By: KRT Co-signed By: TEE Levothyroxine Sodium (Levothyroxine Sodium 125 Mcg Tablet) 125 mcg PO DAILYBB YUNIOR Stop: 03/17/25 06:29 Last Admin: 02/15/25 06:44 Dose: 125 mcg Documented By: KRT Metoprolol Succinate (Metoprolol Succ 25mg Ext Rel Tab) 25 mg PO AMHS YUNIOR Stop: 03/16/25 20:59 Last Admin: 02/14/25 21:27 Dose: 25 mg Documented By: KRT Potassium Chloride (Potassium Chloride Crtab 20 Meq Tabcr) 20 meq PO BID YUNIOR Stop: 03/16/25 20:59 Last Admin: 02/14/25 21:26 Dose: 20 meq Documented By: KRT Rifampin (Rifampin 300 Mg Capsule) 600 mg PO QAM [facility] Stop: 03/16/25 17:14 Last Admin: 02/14/25 21:26 Dose: 600 mg Documented By: KRT Tamsulosin HCl (Tamsulosin Hcl 0.4 Mg Cap) 0.4 mg PO HS YUNIOR Stop: 03/16/25 20:59 Last Admin: 02/14/25 21:27 Dose: 0.4 mg Documented By: KRT Discontinued Medications Sodium Chloride (Nss) 1,000 mls @ 999 mls/hr IV .Q1H1M YUNIOR Stop: 02/14/25 12:00 Last Infusion: 02/14/25 14:51 Dose: Infused Documented By: Admin: 02/14/25 11:02 Dose: 999 mls/hr Documented By: CC Pantoprazole Sodium 80 mg/ (Dextrose) 120 mls @ 480 mls/hr IV NOW ONE Stop: 02/14/25 17:12 Last Infusion: 02/14/25 20:31 Dose: Infused Documented By: Admin: 02/14/25 17:22 Dose: 480 mls/hr Documented By: NITA Vancomycin HCl 2,500 mg/ (Sodium Chloride) 550 mls @ 180 mls/hr IV NOW ONE Stop: 02/14/25 20:33 Last Admin: 02/14/25 20:29 Dose: Not Given Documented By: KRT Insulin Aspart (Insulin Aspart Per Unit Charge) 0 units SC ACHS YUNIOR Stop: 02/14/25 23:59 Last Admin: 02/14/25 20:37 Dose: Not Given Documented By: Admin: 02/14/25 20:33 Dose: 4 units Documented By: KRT Co-signed By: JORDAN Ioversol (Optiray 320 125ml) 112 ml IV ONCE ONE Stop: 02/14/25 13:18 Last Admin: 02/14/25 13:17 Dose: 112 ml Documented By: AIDA Imaging Data Radiologist's Impression: Chest X-Ray 02/14/25 10:50 XR chest 1V portable CLINICAL HISTORY: syncope COMPARISON STUDY: 10/04/2024 FINDINGS: Stable mild cardiomegaly without perivascular congestion. Stable moderate hiatal hernia. No consolidation or pleural effusion seen. No pneumothorax. Right PICC line tip is in the SVC. Stable old lower lateral left rib fracture. IMPRESSION: No acute findings. ACT 112: Negative or not required by law. Electronically signed by: Geremias Swift M.D. 02/14/2025 11:07 AM Chest CTA 02/14/25 11:14 CT ANGIOGRAM OF THE CHEST CLINICAL HISTORY: Syncopal episode. COMPARISON STUDY: Chest radiograph performed earlier today. Chest CT September 13, 2024. TECHNIQUE: Following the IV administration of 112 cc of Optiray 320, CT angiogram of the chest was performed from the upper abdomen to the thoracic inlet utilizing the pulmonary embolus protocol. Images are reviewed in the axial, sagittal, and coronal planes. 3-D MIPS images are created and assessed. IV contrast was administered without complication. A dose lowering technique was utilized adhering to the principles of ALARA. CT DOSE: 3754.35 mGy.cm FINDINGS: No pulmonary emboli are identified. There is no thoracic aortic dissection. Mild cardiomegaly is unchanged. Moderate to large hiatal hernia with partially intrathoracic stomach is again noted. Mildly enlarged subcarinal lymph node is unchanged since prior CT. This is indeterminate but likely benign. There is no pneumothorax or pleural effusion. There is no consolidation to suggest pneumonia. No acute fractures within the bony thorax are present. Visualized portions of the upper abdomen demonstrate small layering gallstones within the gallbladder. There is no evidence for acute cholecystitis. IMPRESSION: 1. No pulmonary emboli identified. 2. No acute intrathoracic findings. 3. Mild cardiomegaly. 4. Moderate to large hiatal hernia with partially intrathoracic stomach. ACT 112: Negative or not required by law. Electronically signed by: Eddie Stephens M.D. 02/14/2025 2:03 PM Hip/Pelvis X-Ray 02/14/25 11:15 XR hip LT 2V w pelvis CLINICAL HISTORY: eval hip replacement COMPARISON: 10/04/2024 FINDINGS: Visualized portion of the right hip prosthesis shows no hardware complication. There is a partially healed fracture proximal shaft of the left femur with improved alignment compared to the prior exam. There is lucency around the distal aspect of the left hip prosthesis which could represent residual lucency from the fracture or hardware loosening. There is heterotopic ossification surrounding the proximal to mid shaft of the left femur. No new fracture or dislocation seen. IMPRESSION: Pelvis and left hip as described. ACT 112: Negative or not required by law. Electronically signed by: Geremias Swift M.D. 02/14/2025 12:[address] 02/14/25 11:26 CT femur LT w con CLINICAL HISTORY: eval for bleeding hematoma COMPARISON STUDY: X-ray of 02/14/2025 FINDINGS: There is spray artifact from the metallic hip prosthesis. There is a comminuted minimally displaced minimally angulated ununited fracture proximal shaft of the left femur adjacent to the femoral component with surrounding heterotopic ossification. No other fracture or dislocation seen at the left femur. There is a small area of relative low density just lateral to the proximal femoral shaft which could represent a small amount of low-density fluid or artifact. No evidence of soft tissue hematoma seen. IMPRESSION: 1. No evidence of hematoma. 2. Ununited fracture at the proximal shaft left femur as described. ACT 112: Negative or not required by law. Electronically signed by: Geremias Swift M.D. 02/14/2025 2:00 PM Discharge Plan Visit Data Chief Complaint: Syncope Stated Complaint: SYNCOPE ED Provider: Tony Stockton Discharge Problem: Acute on chronic anemia, Syncope, BOGGS (dyspnea on exertion) Patient Disposition: Admitted As Inpatient Condition: Serious Discharge Instructions Interventions: ED Discharge Assessment Last Done: 02/14/25 17:22
--- NOTE | 2025-02-14 15:11 | History & Physical Report ---
Date of Service February 14, 2025 Assessment & Plan (1) Syncope: (2) Melena: (3) Acute on chronic anemia: (4) Prosthetic joint infection of left hip: Plan Patient is a medically complex 69-year-old male with past medical history significant for T1DM with DM peripheral angiopathy, CKD stage II, acquired hypothyroidism, HLD, HTN, CAD with history of NSTEMI in setting of DKA s/p cardiac catheterization in August 2015 demonstrating 50-60% serial mid RCA lesion with distal RPLB lesion thought to be culprit (distal lesion not amenable to revascularization) and 30% mid LAD lesion, history of PAF in setting of alcohol withdrawal with no known recurrence, chronic HFpEF, aortic root and ascending aorta enlargement, COPD, chronic alcohol abuse, CHANTELL on CPAP, seizure disorder, history of venous insufficiency with multiple vascular interventions, history of osteomyelitis of the hands with multiple bilateral finger amputations, history of orthostatic hypotension, GERD with esophagitis, mass of left liver lobe, morbid obesity, BPH with LUTS, MGUS and hearing loss of left ear who presented to the ED via EMS from [facility] after sustaining a syncopal episode. Syncopal event ISO acute on chronic anemia, suspected upper GI bleed as outlined below Will check TTE for completeness given his cardiac history Fall precautions Chest CTA: no PE, no acute intrathoracic findings, mild cardiomegaly, mod-large hiatal hernia Acute on chronic anemia Melena ISO suspected upper GI bleed Hgb 5.7 on admission 2U PRBCs ordered in ED, follow repeat H/H trend overnight Hold DAPT including ASA and Plavix Appreciate GI consult NPO at [facility] for possible EGD in AM IV Protonix bolus and drip started in ED History of elective L hip arthroplasty in July 2024 Prosthetic joint infection of L hip Initial L hip arthroplasty c/b postop fall in September 2024 with resultant periprosthetic fx -S/p ORIF of the L femur performed by Dr. Carty at [facility] on 10/06/2024 Also had L hip wound dehiscence back in September 2024 and was admitted under our service -Completed 1mo course of Bactrim and doxycycline at this time d/t c/f superficial wound infection Then started to experience significant degree of L hip pain in late December 2024 -There was high clinical concern at this time for possible prosthetic joint infection -Admitted at [facility] 01/16/2025-01/19/2025 for L hip arthroplasty revision with placement of ABX spacer (surgery occurred on 01/16/25) -Intraop sustained 1L blood loss which resulted in significant postop ABLA requiring a total of 3U PRBCs to be given during that admission -Hardware cultures grew Staph epidermis -ID recommended: IV vancomycin (EOT 02/27/2025) plus po rifampin 600mg daily (EOT 04/21/2025), then will need to start po doxycycline 100mg BID AFTER completion of IV vancomycin for PJI prophylaxis Continue IV vancomycin and po rifampin as outlined above per previous ID recs -Pt missed full dose of IV vancomycin today 2/2 syncopal event so will check trough level and restart with appropriate dosage per pharm Continue daily probiotic while on above ABX ID follow-up appt with Dr. Roger on 03/20/2025 at [facility] L femur CT today noting an ununited fracture at the proximal shaft -Previous L hip XR from 01/16/2025 shows no fractures per chart review -? if this is new or expected postsurgical changes as his L hip XR today stated: "There is a partially healed fracture proximal shaft of the left femur with improved alignment compared to the prior exam. There is lucency around the distal aspect of the left hip prosthesis which could represent residual lucency from the fracture or hardware loosening. There is heterotopic ossification surrounding the proximal to mid shaft of the left femur. No new fracture or dislocation seen." -Appreciate ortho consult for further eval of this --> will consult [place] [facility] as pt had initial L hip arthroplasty done by Dr. Mccann Acquired hypothyroidism Continue levothyroxine History of alcohol use No alcoholic consumption since September 2024 per discussion with the patient Prior to that, patient was consuming 1 pint of bourbon and occasionally a "few beers"/day x >10yrs Continue folic acid and thiamine supplementation HTN Continue Norvasc and losartan with hold parameters HLD CAD with history of NSTEMI in setting of DKA in August 2015 Continue BB Holding DAPT for now - as outlined above Chronic HFpEF Appears euvolemic on exam Continue Lasix and monitor daily wts/I&Os K+ stable, continue po supplementation History of GERD with esophagitis Hold po PPI for now while on IV Protonix drip - as per above BPH with LUTS Continue Proscar and Flomax DM peripheral neuropathy Continue gabapentin Depression Continue venlafaxine DVT Prophylaxis: SCDs/TEDs only in light of above Disposition: Admit to PCU Patient seen in collaboration with Dr. Lynne. Please see addendum. I spent a total of 76 minutes coordinating, documenting, and providing care for this patient excluding time spent in the performance of separately billed services or time spent by another provider/QHP. This included personally reviewing all current laboratories and imaging studies, medical reconciliation, outpatient chart review and discussion with specialists. This chart was completed in part utilizing Speech Voice Recognition Software. Grammatical errors, random word insertions, pronoun errors, and incomplete sentences are an occasional consequence of this system due to software li mitations, ambient noise, and hardware issues. Any formal questions or concerns about the content, text, or information contained within the body of this dictation should be directly addressed to the provider for clarification. History of Present Illness Chief Complaint: Syncope Primary Care Provider: Farzad Hatfield DO Patient is a medically complex 69-year-old male with past medical history significant for T1DM with DM peripheral angiopathy, CKD stage II, acquired hypothyroidism, HLD, HTN, CAD with history of NSTEMI in setting of DKA s/p cardiac catheterization in August 2015 demonstrating 50-60% serial mid RCA lesion with distal RPLB lesion thought to be culprit (distal lesion not amenable to revascularization) and 30% mid LAD lesion, history of PAF in setting of alcohol withdrawal with no known recurrence, chronic HFpEF, aortic root and ascending aorta enlargement, COPD, chronic alcohol abuse, CHANTELL on CPAP, seizure disorder, history of venous insufficiency with multiple vascular interventions, history of osteomyelitis of the hands with multiple bilateral finger amputations, history of orthostatic hypotension, GERD with esophagitis, mass of left liver lobe, morbid obesity, BPH with LUTS, MGUS and hearing loss of left ear who presented to the ED via EMS from [facility] after sustaining a syncopal episode. History obtained from the patient, patient's at bedside, discussion with ED provider and associated chart review. Sustained syncopal episode while on toilet having BM at SNF facility earlier today. Admits to feeling somewhat lightheaded, dizzy and mildly SOB with exertion for the past several days but no reported falls or trauma. Denies any chest pain. Patient currently residing at [facility] for rehabilitation services after undergoing left hip arthroplasty revision, as detailed below, wi th resulting acute blood loss anemia requiring multiple blood transfusions. Reportedly had Hgb checked about 2 weeks ago at the facility at it was noted to be low around 6.9. Had [facility] appointment the next day and received 1U PRBCs. No further blood transfusions since then up until today. Upon further questioning, patient endorses melena for the past 2 days. This started yesterday morning. Had not noticed any discoloration in his stools prior to this, including manju red blood. Denies ever experiencing melanotic stools before. Denies any abdominal pain or N/V. Feels appetite has been fair. He has though, however, been experiencing some pain in his left hip over the past week when applying weight on his left lower extremity. Uses walker for ambulation. Admits that he had minimal, if any, pain prior to this following his left hip arthroplasty revision last month. Again, no falls or trauma after this most recent operation. Had elective total left hip replacement in July 2024 c/b postoperative fall in September 2024 with resultant periprosthetic fracture around the internal prosthetic left hip joint. S/p open reduction and internal fixation of the left femur on 10/06/[address] Marlon Carty at [facility]. Patient was admitted under our service in September 2024 due to concern for an infection of his left hip incision site due to wound dehiscence. He completed a 1 month course of Bactrim and doxycycline for this. Patient continued to have wound healing difficulties and hardware loosening. He was experiencing a significant degree of left hip pain in late December and there was high clinical concern for possible prosthetic joint infection. Patient was initially scheduled for left hip arthroplasty revision with placement of an antibiotic spacer in the setting of suspected prosthetic joint infection on 01/05/2025 however patient did not discontinue his anticoagulation prior to this so it had to be canceled. Patient was rescheduled for this procedure on 01/16/2025 which was performed by Dr. Marlon Carty at [facility]. Intraoperatively patient lost about 1L of blood which resulted in postoperative hypotensive 2/2 acute blood loss anemia. Patient received a total of 3U PRBCs and was admitted at [facility] 01/16/2025- 01/22/2025. Hardware cultures grew Staph epidermidis. Final ID recommendations: IV vancomycin (EOT 02/27/2025) and po rifampin 600mg QAM (EOT 04/21/25). Then doxycycline 100mg BID after completion of IV vancomycin for PJI prophylaxis. Has ID follow-up appointment with Dr. Jolene Roger on 03/20/2025 at [facility]. Allergies Allergy/AdvReac Type Severity Reaction Status Date / Time DEIDRE Inhibitors AdvReac Unknown Cough Verified 02/14/25 16:52 Home Medications Medication Instructions Recorded Confirmed Type clopidogrel 75 mg tablet (Plavix) 75 mg PO QAM 02/04/18 02/14/25 History finasteride 5 mg tablet 5 mg PO QPM 02/04/18 02/14/25 History folic acid 1 mg tablet 1 mg PO QAM 02/04/18 02/14/25 History levothyroxine 125 mcg tablet 125 mcg PO DAILYBB 02/04/18 02/14/25 History tamsulosin 0.4 mg capsule (Flomax) 0.4 mg PO HS 02/04/18 02/14/25 History losartan 50 mg tablet 50 mg PO QAM 05/13/18 02/14/25 History atorvastatin 40 mg tablet 40 mg PO QAM 04/14/20 02/14/25 History metoprolol succinate 25 mg 25 mg PO AMHS 04/14/20 02/14/25 History tablet,extended release 24 hr amlodipine 5 mg tablet 5 mg PO QAM 07/12/20 02/14/25 History insulin aspart U-100 100 unit/mL 0 unit subcut CONTINOUS 07/12/20 02/14/25 History subcutaneous solution gabapentin 300 mg capsule 300 mg PO BID 03/13/21 02/14/25 History nitroglycerin 0.4 mg sublingual 0.4 mg sublingual DIRECTED PRN 03/20/23 02/14/25 History tablet Chest Pain venlafaxine 150 mg 150 mg PO QAM 03/20/23 02/14/25 History capsule,extended release 24 hr mv-mn-folic 200 mcg-vit K 15 1 cap PO DAILY 04/12/24 02/14/25 History mcg-lutein 5 mg-zeaxanthin 1 mg capsule (PreserVision AREDS 2 Plus Multivit) aspirin 81 mg tablet,delayed 81 mg PO BID #0 tabs 08/04/24 02/14/25 Rx release potassium chloride 20 mEq 20 meq PO AMHS 09/13/24 02/14/25 History tablet,extended release(part/cryst) L.acidop,casei,lactis,rham-B.lact,mily 1 cap PO DAILY #14 caps 09/15/24 02/14/25 Rx 625 mg (10 billion cell) capsule (Advanced Probiotic) thiamine HCl (vitamin B1) 100 mg 100 mg PO QAM #30 tabs 09/15/24 02/14/25 Rx tablet cyclosporine 0.05 % eye drops in a 1 drp OPB Q12H 02/14/25 02/14/25 History dropperette (Restasis) furosemide 40 mg tablet 40 mg PO BID 02/14/25 02/14/25 History pantoprazole 40 mg tablet,delayed 40 mg PO BID 02/14/25 02/14/25 History release Past Med/Surg History Problem List Prosthetic joint infection of left hip Acute on chronic anemia Melena Acute hyponatremia (Acute) Dehiscence of wound (Acute) Alcohol intoxication (Acute) Non-ST elevation [place] (NSTEMI) (Acute) Unspecified open wound, left thigh, initial encounter (Acute) Anemia (Acute) Syncope and collapse (Acute) Aftercare following left hip joint replacement surgery Status post left hip replacement Chronic venous insufficiency (Chronic) Balance disorder PAF (paroxysmal atrial fibrillation) Iron deficiency anemia Sleep apnea CPAP Loss of protective sensation of skin of foot Diabetic peripheral neuropathy associated with type 2 diabetes mellitus HTN (hypertension) CAD (coronary artery disease) F/U SUSAN [facility]ILLARREAL COPD (chronic obstructive pulmonary disease) (Chronic) Alcohol dependence (Chronic) Aortic root enlargement (Chronic) BPH (benign prostatic hyperplasia) (Chronic) GERD (gastroesophageal reflux disease) (Chronic) Medical History Osteoarthritis of left hip MGUS (monoclonal gammopathy of unknown significance) Liver mass CKD (chronic kidney disease) stage 3, GFR 30-59 ml/min Type 1 diabetes mellitus insulin pump Hypothyroidism BPH (benign prostatic hyperplasia) CAD (coronary artery disease) s/p NSTEMI 2016-see cardiology 06/29/24 note for catheterization details- medical management advised Sleep apnea CPAP-compliant History of seizures unknown details regarding dx, last one approx 2018. Unknown details regarding etiology. Has neurologist but mainly focus is on neuropathy per pt. Denies seizure medication. History of myocardial infarction (~2015) History of atrial fibrillation Frequent falls hx, has improved. Balance disorder Neuropathy Chronic venous insufficiency hx sx. COPD (chronic obstructive pulmonary disease) controlled, stable per pt-lost to f/u with [facility] pulmonology per chart review/patient-denies inhaler use History of pneumonia (2021) History of COVID-19 (2019) Iron deficiency anemia monitors Aortic root enlargement Poor historian Depression Hyperlipidemia HTN (hypertension) controlled, stable per pt Cataracts, both eyes [place] (hard of hearing) left ear worse History of colon polyps Hiatal hernia Dyspnea on effort Chronic heart failure with preserved ejection fraction (HFpEF) EF 50-55% Alcohol abuse Hyponatremia GERD (gastroesophageal reflux disease) controlled, stable per pt Dyslipidemia Surgical History History of ear surgery left History of eye surgery several right eye, hx injury. History of vascular surgery right for vericose veins. History of total right hip replacement History of endoscopy History of colonoscopy History of hand surgery BILAT HANDS-FINGER AMPUTATIONS History of cardiac cath 2019? [facility] STENTS History of tonsillectomy and adenoidectomy Family History Other Cancer Diabetes Hypertension Social History Smoking Status: Never smoker Tobacco Type: Cigarettes Cigarettes Per Day: 30; Second Hand Exposure: No; Do You Dip or Chew Tobacco: No; Hx Alcohol Use: Yes Alcohol type: hard liquor Alcohol Intake Frequency Comment: 8 oz hard liquor daily per pt Hx Substance Use: No Preferred Language: Ukrainian Communication Ability: Effective Visual Impairment: Limited Hearing Ability: Hard of Hearing Certified Court Interpreter Required: No Beliefs That Will Affect Care: None marital status: Current Living Situation: Spouse Current Living Situation Comment: Home with current occupational status: employed 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 Physical Exam Physical Exam: Please refer to Dr. Lynne's addendum for physical examination findings. Results & Data Results & Data Vital Signs (Past 12 Hours) Vital Signs Temp Pulse Pulse Resp BP BP Pulse Ox 02/14/25 14:51 87 18 168/91 H 95 02/14/25 14:00 86 18 158/94 H 96 02/14/25 12:44 87 18 149/80 H 97 02/14/25 10:54 36.7 C 83 24 116/61 92 O2 Del Method 02/14/25 14:51 Room Air 02/14/25 14:00 Room Air 02/14/25 12:44 Room Air 02/14/25 10:54 Room Air Laboratory Results Short CBC 02/14/25 Range/Units 10:52 WBC 10.13 (4.8-10.8) K/ul Hgb 5.7 L* (14.0-18.0) g/dl Hct 18.7 L* (42.0-52.0) % Plt Count 338 (130-400) K/uL BMP 02/14/25 10:52 Sodium 136 Potassium 3.8 Chloride 106 Carbon Dioxide 22 BUN 56 H Creatinine 1.18 Glucose 184 H Calcium 8.6 Liver Function 02/14/25 Range/Units 10:52 Total Bilirubin 0.3 (0.2-1.0) mg/dl AST 14 (13-39) U/L ALT 8 (7-52) U/L Alkaline Phosphatase 156 H (34-104) U/L Albumin 3.5 (3.4-5.0) gm/dl Diagnostic Findings Chest X-Ray 02/14/25 10:50 XR chest 1V portable CLINICAL HISTORY: syncope COMPARISON STUDY: 10/04/2024 FINDINGS: Stable mild cardiomegaly without perivascular congestion. Stable moderate hiatal hernia. No consolidation or pleural effusion seen. No pneumothorax. Right PICC line tip is in the SVC. Stable old lower lateral left rib fracture. IMPRESSION: No acute findings. ACT 112: Negative or not required by law. Electronically signed by: Geremias Swift M.D. 02/14/2025 11:07 AM Chest CTA 02/14/25 11:14 CT ANGIOGRAM OF THE CHEST CLINICAL HISTORY: Syncopal episode. COMPARISON STUDY: Chest radiograph performed earlier today. Chest CT September 13, 2024. TECHNIQUE: Following the IV administration of 112 cc of Optiray 320, CT angiogram of the chest was performed from the upper abdomen to the thoracic inlet utilizing the pulmonary embolus protocol. Images are reviewed in the axial, sagittal, and coronal planes. 3-D MIPS images are created and assessed. IV contrast was administered without complication. A dose lowering technique was utilized adhering to the principles of ALARA. CT DOSE: 3754.35 mGy.cm FINDINGS: No pulmonary emboli are identified. There is no thoracic aortic dis section. Mild cardiomegaly is unchanged. Moderate to large hiatal hernia with partially intrathoracic stomach is again noted. Mildly enlarged subcarinal lymph node is unchanged since prior CT. This is indeterminate but likely benign. There is no pneumothorax or pleural effusion. There is no consolidation to suggest pneumonia. No acute fractures within the bony thorax are present. Visualized portions of the upper abdomen demonstrate small layering gallstones within the gallbladder. There is no evidence for acute cholecystitis. IMPRESSION: 1. No pulmonary emboli identified. 2. No acute intrathoracic findings. 3. Mild cardiomegaly. 4. Moderate to large hiatal hernia with partially intrathoracic stomach. ACT 112: Negative or not required by law. Electronically signed by: Eddie Stephens M.D. 02/14/2025 2:03 PM Hip/Pelvis X-Ray 02/14/25 11:15 XR hip LT 2V w pelvis CLINICAL HISTORY: eval hip replacement COMPARISON: 10/04/2024 FINDINGS: Visualized portion of the right hip prosthesis shows no hardware complication. There is a partially healed fracture proximal shaft of the left femur with improved alignment compared to the prior exam. There is lucency around the distal aspect of the left hip prosthesis which could represent residual lucency from the fracture or hardware loosening. There is heterotopic ossification surrounding the proximal to mid shaft of the left femur. No new fracture or dislocation seen. IMPRESSION: Pelvis and left hip as described. ACT 112: Negative or not required by law. Electronically signed by: Geremias Swift M.D. 02/14/2025 12:[address] 02/14/25 11:26 CT femur LT w con CLINICAL HISTORY: eval for bleeding hematoma COMPARISON STUDY: X-ray of 02/14/2025 FINDINGS: There is spray artifact from the metallic hip prosthesis. There is a comminuted minimally displaced minimally angulated ununited fracture proximal shaft of the left femur adjacent to the femoral component with surrounding heterotopic ossification. No other fracture or dislocation seen at the left femur. There is a small area of relative low density just lateral to the proximal femoral shaft which could represent a small amount of low-density fluid or artifact. No evidence of soft tissue hematoma seen. IMPRESSION: 1. No evidence of hematoma. 2. Ununited fracture at the proximal shaft left femur as described. ACT 112: Negative or not required by law. Electronically signed by: Geremias Swift M.D. 02/14/2025 2:00 PM Medications Administered Discontinued Medications Sodium Chloride (Nss) 1,000 mls @ 999 mls/hr IV .Q1H1M YUNIOR Stop: 02/14/25 12:00 Last Infusion: 02/14/25 14:51 Dose: Infused Documented By: Admin: 02/14/25 11:02 Dose: 999 mls/hr Documented By: CC Ioversol (Optiray 320 125ml) 112 ml IV ONCE ONE Stop: 02/14/25 13:18 Last Admin: 02/14/25 13:17 Dose: 112 ml Documented By: AIDA Code Status & VTE Plan Code Status FULL CODE - As per discussion with the patient and his at bedside in the ED. Supervising Physician Co-Signing Physician Notes Attending addendum: The patient was seen and examined in the emergency room in presence of the He was brought in with syncopal episode, weakness and also noted to have low hemoglobin at the facility He denies any complaints in the emergency room at rest and he has been getting physical therapy at [facility] for his recent fracture of femur with infection He has been on aspirin and Plavix for CAD and noted to have black stool without any abdominal discomfort or pain since yesterday On examination Lying in bed without any acute distress Remains hemodynamically stable Chestclear to auscultate bilaterally HeartS1-S2, regular Abdomenbenign Extremitiestrace edema bilaterally CNSalert, awake oriented x 3 His admission labs, EKG and imaging studies reviewed Noted to have very low hemoglobin of 5.7, CTA negative for any pulmonary embolism and x-ray of the femur did not show ununited fracture at the proximal shaft left femur Has GI bleed likely upperWill hold aspirin Plavix and restart intravenous Protonix drip. GI evaluation for possible scope. He will have 2 units of blood transfusion Syncopal episode likely secondary to GI bleed and low hemoglobin Nonunion fracture of the proximal shaft of left femur with infectiongetting phy sical therapy and will continue and also continue antibiotic as advised Other significant medical conditions remained stable as above Agree with assessment and plan as outlined above by me Liliana Francisco PA-C and take the full responsibility of care in the hospital Dr Luis Felipe Lynne (1) Syncope Syncope type: unspecified Qualified Code(s): R55 - Syncope and collapse (4) Prosthetic joint infection of left hip Encounter type: sequela Qualified Code(s): T84.52XS - Infection and inflammatory reaction due to internal left hip prosthesis, sequela
[2025-02-14] MEDS ORDERED: PANTOPRAZOLE BOLUS/DRIP IV STA (16:58)
[2025-02-14] MEDS ORDERED: DEXTROSE 50% 50 ML SYRINGE IV PRN (16:58)
[2025-02-14] MEDS ORDERED: GLUCAGON FOR INJ 1 MG VIAL SQ PRN (16:58)
[2025-02-14] MEDS ORDERED: GLUCOSE 10 TAB/TUBE PO PRN (16:58)
[2025-02-14] MEDS ORDERED: GLUCOSE 40% GEL 15 GM TUBE PO PRN (16:58)
[2025-02-14] MEDS ORDERED: PHARMACY GLYCEMIC MGMT CONSULT PRN (16:58)
[2025-02-14] MEDS ORDERED: VANCOMYCIN CONSULT ACTIVE PRN (17:06)
[2025-02-14] MEDS ORDERED: ONDANSETRON INJ 2 MG/ML 2 ML VIAL IV PRN (17:22)
[2025-02-14] MEDS ORDERED: ACETAMINOPHEN 325 MG TAB PO PRN (17:22)
[2025-02-14] MEDS ORDERED: MAGNESIUM HYDROXIDE SUSP 30 ML UDC PO PRN (17:22)
[2025-02-14] MEDS ORDERED: POLYETHYLENE (MIRALAX) 17 GM PACK PO PRN (17:22)
[2025-02-14] MEDS: PANTOprazole 40 MG in DEXTROSE 5% MINI-B 100 ML IV SCH (17:44)
[2025-02-14] MEDS ORDERED: ARTIFICIAL TEARS OP PRN (19:32)
[2025-02-14] MEDS: VANCOMYCIN HCL 2,500 MG in SODIUM CHLORIDE 0.9% 500 ML IV ONE (20:29)
[2025-02-14] MEDS: INSULIN ASPART PER UNIT CHARGE SC SCH (20:33)
[2025-02-14] MEDS: LANTUS PER UNIT CHARGE SQ SCH (21:25)
[2025-02-14] MEDS: POTASSIUM CHLORIDE CRTAB 20 MEQ TABCR PO SCH (21:26)
[2025-02-14] MEDS: METOPROLOL SUCC 25MG EXT REL TAB PO SCH (21:27)
[2025-02-14] MEDS: GABAPENTIN 300 MG CAP PO SCH (21:27)
[2025-02-14] MEDS: FINASTERIDE 5 MG TAB PO SCH (21:27)
[2025-02-14] MEDS: TAMSULOSIN HCL 0.4 MG CAP PO SCH (21:27)
[2025-02-14] MEDS: VANCOMYCIN HCL / NSS 1,000 MG/270 ML BAG IV SCH (22:54)
[2025-02-14 23:11] LABS: Appearance Urine Clear (Clear); Glucose Urine UA Negative (Negative)
[2025-02-15] MEDS: INSULIN ASPART PER UNIT CHARGE SC SCH ×2 (00:29→16:24)
[2025-02-15 03:09] LABS: Hematocrit (blood only) 20.8 % (42.0-52.0); Hemoglobin 6.4 g/dl (14.0-18.0)
[2025-02-15] MEDS ORDERED: SODIUM CHLORIDE 0.9% 100 ML IV PRN (03:33)
[2025-02-15] MEDS: LEVOTHYROXINE SODIUM 125 MCG TABLET PO SCH (06:44)
[2025-02-15] MEDS: LANTUS PER UNIT CHARGE SQ ONE ×2 (07:51→12:13)
--- NOTE | 2025-02-15 08:28 | Gastrointestinal Consultation ---
Date of Consultation February 15, 2025 Assessment & Plan (1) Acute on chronic anemia: 69 year old male w/ history of T1DM, CKD2, hypothyroidism, HLD, HTN, CAD, NSTEMI in setting of DKA s/p cardiac catheterization in 2015, PAF in setting of alcohol withdrawal, chronic HFpEF, aortic root and ascending aorta enlargement, COPD, chronic alcohol abuse, CHANTELL on CPAP, seizure disorder, venous insufficiency, prior osteomyelitis s/p amputations of fingers, history of orthostatic hypotension, GERD with esophagitis, morbid obesity, BPH with LUTS, MGUS, s/p left hip replacement in September 2024 complicated by infections w/ revisions in January admitted through the ED from [facility] following a syncopal episode - GI asked to evaluate for melena, acute on chronic anemia w/ 5.7 --> 3 units --> 6.4. Chest CTA w/moderate to large hiatal hernia with partially intrathoracic stomach, EGD/Colonoscopy unremarkable. NPO Trend H&H Transfuse PRN per primary Monitor and document GI output Hold ASA/Plavix Continue IV PPI Tentative plan for EGD pending results of repeat HGB We appreciate assistance in the management of any serological abnormality and corrections to include: hemoglobin >7, INR <2, platelets >50,000, potassium levels >3.5 but <5.3, and sodium levels within 5 points of the reference range prior to endoscopic evaluation. Thank you for allowing us to participate in the care of this patient. Please call with any acute changes, questions or concerns. Please see addendum below with additional recommendation from my supervising physician. I spent a total of 60 minutes on the date of service in review of patient's record, and previously obtained information in person and appropriate medical visit, discussion and education of plan, with patient and/or caregiver, placing orders for tests/referral/procedures as medically necessary and documentation of pertinent clinical information in patient's medical records for their visit today. Supervising Physician Co-Signing Physician Notes I personally saw and examined the patient. I have reviewed the chart and agree with the documentation provided by the POT PUNCHER including discussion about the assessment, treatment and plan. Briefly, 69 year old male w/ history of T1DM, CKD2, hypothyroidism, HLD, HTN, CAD, NSTEMI in setting of DKA s/p cardiac catheterization in 2016, PAF in setting of alcohol withdrawal, chronic HFpEF, aortic root and ascending aorta enlargement, COPD, chronic alcohol abuse, CHANTELL on CPAP, seizure disorder, venous insufficiency, prior osteomyelitis s/p amputations of fingers, history of orthostatic hypotension, GERD with esophagitis, morbid obesity, BPH with LUTS, MGUS, s/p left hip replacement in September 2024 complicated by infections w/ revisions in January admitted through the ED from [facility] following a syncopal episode - GI asked to evaluate for melena, acute on chronic anemia w/ 5.7 --> 3 units --> 6.4. Chest CTA w/moderate to large hiatal hernia with partially intrathoracic stomach. Given 4 units of blood and hemoglobin at 8.1. On aspirin and Plavix which has been held. Plan for an EGD today after PPI IV twice daily and volume resuscitation. N.p.o. now. Suspect Naveed's lesions peptic ulcer disease duodenal ulcer gas tritis esophagitis. History of Present Illness Reason for Consultation: C/f upper GI bleed, melena Requesting Physician: Aristeo Wise MD Attending Physician: Aristeo Wise MD History of Present Illness 69 year old male w/ history of T1DM, CKD2, hypothyroidism, HLD, HTN, CAD, NSTEMI in setting of DKA s/p cardiac catheterization in 2016, PAF in setting of alcohol withdrawal, chronic HFpEF, aortic root and ascending aorta enlargement, COPD, chronic alcohol abuse, CHANTELL on CPAP, seizure disorder, venous insufficiency, prior osteomyelitis s/p amputations of fingers, history of orthostatic hypotension, GERD with esophagitis, morbid obesity, BPH with LUTS, MGUS, s/p left hip replacement in September 2024 complicated by infections w/ revisions in January admitted through the ED from [facility] following a syncopal episode - GI asked to evaluate for melena. He tells me he was made aware of dark appearing stool by staff at [facility] about two days ago. He suggests he had 1-2 stools which were loose, dark over the last 48 hours. No BRBPR. Denies abd pain. No nausea/vomiting. He is on PPI therapy. Denies reflux/regurgitation. No dysphagia. HGB 7.7 --> 5.7 --> 3 units --> 6.4 PLT 336 BUN 56 w/ [employer] 1.18 Chest CTA 2024: . No pulmonary emboli identified. No acute intrathoracic findings. Mild cardiomegaly. Moderate to large hiatal hernia with partially intrathoracic stomach EGD 2021: - Normal esophagus. - Normal stomach. - Normal examined duodenum. - No specimens collected. Colonoscopy 2021: - The entire examined colon is normal on direct and retroflexion views. - No specimens collected. Allergies Allergy/AdvReac Type Severity Reaction Status Date / Time DEIDRE Inhibitors AdvReac Unknown Cough Verified 02/14/25 16:52 Home Medications Medication Instructions Recorded Confirmed Type clopidogrel 75 mg tablet (Plavix) 75 mg PO QAM 02/04/18 02/14/25 History finasteride 5 mg tablet 5 mg PO QPM 02/04/18 02/14/25 History folic acid 1 mg tablet 1 mg PO QAM 02/04/18 02/14/25 History levothyroxine 125 mcg tablet 125 mcg PO DAILYBB 02/04/18 02/14/25 History tamsulosin 0.4 mg capsule (Flomax) 0.4 mg PO HS 02/04/18 02/14/25 History losartan 50 mg tablet 50 mg PO QAM 05/13/18 02/14/25 History atorvastatin 40 mg tablet 40 mg PO QAM 04/14/20 02/14/25 History metoprolol succinate 25 mg 25 mg PO AMHS 04/14/20 02/14/25 History tablet,extended release 24 hr amlodipine 5 mg tablet 5 mg PO QAM 07/12/20 02/14/25 History insulin aspart U-100 100 unit/mL 0 unit subcut CONTINOUS 07/12/20 02/14/25 History subcutaneous solution gabapentin 300 mg capsule 300 mg PO BID 03/13/21 02/14/25 History nitroglycerin 0.4 mg sublingual 0.4 mg sublingual DIRECTED PRN 03/20/23 02/14/25 History tablet Chest Pain venlafaxine 150 mg 150 mg PO QAM 03/20/23 02/14/25 History capsule,extended release 24 hr mv-mn-folic 200 mcg-vit K 15 1 cap PO DAILY 04/12/24 02/14/25 History mcg-lutein 5 mg-zeaxanthin 1 mg capsule (PreserVision AREDS 2 Plus Multivit) aspirin 81 mg tablet,delayed 81 mg PO BID #0 tabs 08/04/24 02/14/25 Rx release potassium chloride 20 mEq 20 meq PO AMHS 09/13/24 02/14/25 History tablet,extended release(part/cryst) L.acidop,casei,lactis,rham-B.lact,mily 1 cap PO DAILY #14 caps 09/15/24 02/14/25 Rx 625 mg (10 billion cell) capsule (Advanced Probiotic) thiamine HCl (vitamin B1) 100 mg 100 mg PO QAM #30 tabs 09/15/24 02/14/25 Rx tablet cyclosporine 0.05 % eye drops in a 1 drp OPB Q12H 02/14/25 02/14/25 History dropperette (Restasis) furosemide 40 mg tablet 40 mg PO BID 02/14/25 02/14/25 History pantoprazole 40 mg tablet,delayed 40 mg PO BID 02/14/25 02/14/25 History release Patient History Medical History Osteoarthritis of left hip MGUS (monoclonal gammopathy of unknown significance) Liver mass CKD (chronic kidney disease) stage 3, GFR 30-59 ml/min Type 1 diabetes mellitus insulin pump Hypothyroidism BPH (benign prostatic hyperplasia) CAD (coronary artery disease) s/p NSTEMI 2016-see cardiology 06/29/24 note for catheterization details- medical management advised Sleep apnea CPAP-compliant History of seizures unknown details regarding dx, last one approx 2018. Unknown details regarding etiology. Has neurologist but mainly focus is on neuropathy per pt. Denies seizure medication. History of myocardial infarction (~2015) History of atrial fibrillation Frequent falls hx, has improved. Balance disorder Neuropathy Chronic venous insufficiency hx sx. COPD (chronic obstructive pulmonary disease) controlled, stable per pt-lost to f/u with [facility] pulmonology per chart review/patient-denies inhaler use History of pneumonia (2021) History of COVID-19 (2019) Iron deficiency anemia monitors Aortic root enlargement Poor historian Depression Hyperlipidemia HTN (hypertension) controlled, stable per pt Cataracts, both eyes [place] (hard of hearing) left ear worse History of colon polyps Hiatal hernia Dyspnea on effort Chronic heart failure with preserved ejection fraction (HFpEF) EF 50-55% Alcohol abuse Hyponatremia GERD (gastroesophageal reflux disease) controlled, stable per pt Dyslipidemia Surgical History History of ear surgery left History of eye surgery several right eye, hx injury. History of vascular surgery right for vericose veins. History of total right hip replacement History of endoscopy History of colonoscopy History of hand surgery BILAT HANDS-FINGER AMPUTATIONS History of cardiac cath 2020? [facility]-NO STENTS History of tonsillectomy and adenoidectomy Family History Other Cancer Diabetes Hypertension Social History Smoking Status: Former smoker Tobacco Type: Cigarettes Cigarettes Per Day: 30; Smoking End Date: Jan 05, 1995; Second Hand Exposure: No; Do You Dip or Chew Tobacco: No; Hx Alcohol Use: Yes Alcohol type: hard liquor Alcohol Intake Frequency Comment: 8 oz hard liquor daily per pt Hx Substance Use: No Preferred Language: Kiswahili Communication Ability: Effective Visual Impairment: Limited Hearing Ability: Hard of Hearing Local Government Legislator Required: No Beliefs That Will Affect Care: None marital status: Current Living Situation: Spouse Current Living Situation Comment: Pt resides at home with , recently at [facility] for rehab current occupational status: employed 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 Physical Exam Constitutional: WD/WN, vitals as above Respiratory: normal respiratory effort Cardiovascular: Rate/Rhythm: regular rate Gastrointestinal (Abdomen): normal bowel sounds, soft, nontender, no hepatosplenomegaly Skin: no rashes, warm and dry Results & Data Vital Signs (Past 12 Hours) Vital Signs Temp Pulse Pulse Pulse Resp BP BP 02/15/25 08:01 80 16 150/65 H 02/15/25 07:10 97.9 F 98 H 18 143/68 H 02/15/25 06:28 98.1 F 74 18 128/60 02/15/25 05:28 98.1 F 75 20 125/62 02/15/25 04:58 98.2 F 74 18 127/79 02/15/25 04:43 98.2 F 78 18 125/57 L 02/15/25 04:27 98.1 F 73 16 135/51 L 02/15/25 03:41 97.9 F 76 20 127/69 02/15/25 02:15 81 21 02/14/25 22:46 98.2 F 86 16 151/77 H 02/14/25 22:31 76 21 02/14/25 22:28 85 02/14/25 22:21 98.4 F 87 16 152/74 H 02/14/25 21:21 98.4 F 95 H 18 127/67 02/14/25 20:52 99.1 F 92 H 18 145/83 H 02/14/25 20:51 99.1 F 92 H 18 145/83 H 02/14/25 20:51 99.1 F 92 H 18 145/83 H 02/14/25 20:50 99.1 F 92 H 18 145/83 H 02/14/25 20:38 99.7 F H 92 H 18 140/45 L 02/14/25 20:36 99.7 F H 93 H 18 140/45 L Pulse Ox O2 Del Method 02/15/25 08:01 99 CPAP 02/15/25 07:10 98 CPAP 02/15/25 06:28 97 02/15/25 05:28 96 02/15/25 04:58 97 02/15/25 04:43 96 02/15/25 04:27 99 02/15/25 03:41 99 Room Air, BiPAP 02/15/25 02:15 96 02/14/25 22:46 97 02/14/25 22:31 100 02/14/25 22:28 02/14/25 22:21 97 02/14/25 21:21 98 02/14/25 20:52 96 02/14/25 20:51 96 02/14/25 20:51 96 02/14/25 20:50 96 02/14/25 20:38 97 02/14/25 20:36 97 Laboratory Results 02/15/25 02/15/25 02/15/25 Range/Units 06:38 06:34 02:33 WBC (4.8-10.8) K/ul RBC (4.70-6.10) M/uL Hgb 6.4 L* (14.0-18.0) g/dl Hct 20.8 L* (42.0-52.0) % MCV (80.0-100.0) fL MCH (25.0-34.0) pg MCHC (32.0-36.0) g/dL RDW Std Deviation (36.4-46.3) fL RDW Coeff of Juan Manuel (11.5-14.5) % Plt Count (130-400) K/uL MPV (9.4-12.4) fL Immature Gran % (Auto) % Neut % (Auto) % Lymph % (Auto) % Bell % (Auto) % Eos % (Auto) % Baso % (Auto) % Neut # (Auto) (1.40-6.50) K/uL Lymph # (Auto) (1.20-3.40) K/uL Bell # (Auto) (0.11-0.59) K/uL Eos # (Auto) (0.00-0.50) K/uL Baso # (Auto) (0.00-0.20) K/uL Immature Gran # (Auto) (0.01-0.20) K/uL Polychromasia Ovalocytes Sodium (136-145) mmol/L Potassium (3.5-5.1) mmol/L Chloride (98-107) mmol/L Carbon Dioxide (21-32) mmol/L Anion Gap (3-11) BUN (6-23) mg/dl Creatinine (0.6-1.4) mg/dl Est Cr Clr Drug Dosing ml/min eGFR BUN/Creatinine Ratio (10-20) Glucose (70-99(Fasting)) mg/dl POC Glucose 373 H* 388 H* (70-99) mg/dl Lactate (0.4-2.0) mmol/L Calcium (8.6-10.3) mg/dl Magnesium (1.7-2.4) mg/dl Total Bilirubin (0.2-1.0) mg/dl AST (13-39) U/L ALT (7-52) U/L Alkaline Phosphatase (34-104) U/L Troponin I High Sens (0-20) pg/ml Total Protein (6.0-8.3) gm/dl Albumin (3.4-5.0) gm/dl Globulin (2.5-4.0) gm/dl Albumin/Globulin Ratio (0.9-2) Urine Color Urine Appearance (Clear) Urine pH (4.5-7.5) Ur Specific [place] (1.000-1.030) Urine Protein (Negative) Urine Glucose (UA) (Negative) Urine Ketones (Negative) Urine Blood (Negative) Urine Nitrite (Negative) Urine Bilirubin (Negative) Urine Urobilinogen (Negative) Ur Leukocyte Esterase (Negative) Urine Comment Random Vancomycin (10-20) mcg/ml Blood Type Antibody Screen Crossmatch 02/15/25 02/15/25 02/14/25 Range/Units 00:22 00:18 Unknown WBC (4.8-10.8) K/ul RBC (4.70-6.10) M/uL Hgb (14.0-18.0) g/dl Hct (42.0-52.0) % MCV (80.0-100.0) fL MCH (25.0-34.0) pg MCHC (32.0-36.0) g/dL RDW Std Deviation (36.4-46.3) fL RDW Coeff of Juan Manuel (11.5-14.5) % Plt Count (130-400) K/uL MPV (9.4-12.4) fL Immature Gran % (Auto) % Neut % (Auto) % Lymph % (Auto) % Bell % (Auto) % Eos % (Auto) % Baso % (Auto) % Neut # (Auto) (1.40-6.50) K/uL Lymph # (Auto) (1.20-3.40) K/uL Bell # (Auto) (0.11-0.59) K/uL Eos # (Auto) (0.00-0.50) K/uL Baso # (Auto) (0.00-0.20) K/uL Immature Gran # (Auto) (0.01-0.20) K/uL Polychromasia Ovalocytes Sodium (136-145) mmol/L Potassium (3.5-5.1) mmol/L Chloride (98-107) mmol/L Carbon Dioxide (21-32) mmol/L Anion Gap (3-11) BUN (6-23) mg/dl Creatinine (0.6-1.4) mg/dl Est Cr Clr Drug Dosing ml/min eGFR BUN/Creatinine Ratio (10-20) Glucose (70-99(Fasting)) mg/dl POC Glucose 290 H 322 H* (70-99) mg/dl Lactate (0.4-2.0) mmol/L Calcium (8.6-10.3) mg/dl Magnesium (1.7-2.4) mg/dl Total Bilirubin (0.2-1.0) mg/dl AST (13-39) U/L ALT (7-52) U/L Alkaline Phosphatase (34-104) U/L Troponin I High Sens (0-20) pg/ml Total Protein (6.0-8.3) gm/dl Albumin (3.4-5.0) gm/dl Globulin (2.5-4.0) gm/dl Albumin/Globulin Ratio (0.9-2) Urine Color Yellow Urine Appearance Clear (Clear) Urine pH 5.5 (4.5-7.5) Ur Specific [place] 1.026 (1.000-1.030) Urine Protein Negative (Negative) Urine Glucose (UA) Negative (Negative) Urine Ketones 2+ H (Negative) Urine Blood Negative (Negative) Urine Nitrite Negative (Negative) Urine Bilirubin Negative (Negative) Urine Urobilinogen Negative (Negative) Ur Leukocyte Esterase Negative (Negative) Urine Comment Random Vancomycin (10-20) mcg/ml Blood Type Antibody Screen Crossmatch 02/14/25 02/14/25 02/14/25 Range/Units 20:36 20:18 11:55 WBC (4.8-10.8) K/ul RBC (4.70-6.10) M/uL Hgb (14.0-18.0) g/dl Hct (42.0-52.0) % MCV (80.0-100.0) fL MCH (25.0-34.0) pg MCHC (32.0-36.0) g/dL RDW Std Deviation (36.4-46.3) fL RDW Coeff of Juan Manuel (11.5-14.5) % Plt Count (130-400) K/uL MPV (9.4-12.4) fL Immature Gran % (Auto) % Neut % (Auto) % Lymph % (Auto) % Bell % (Auto) % Eos % (Auto) % Baso % (Auto) % Neut # (Auto) (1.40-6.50) K/uL Lymph # (Auto) (1.20-3.40) K/uL Bell # (Auto) (0.11-0.59) K/uL Eos # (Auto) (0.00-0.50) K/uL Baso # (Auto) (0.00-0.20) K/uL Immature Gran # (Auto) (0.01-0.20) K/uL Polychromasia Ovalocytes Sodium (136-145) mmol/L Potassium (3.5-5.1) mmol/L Chloride (98-107) mmol/L Carbon Dioxide (21-32) mmol/L Anion Gap (3-11) BUN (6-23) mg/dl Creatinine (0.6-1.4) mg/dl Est Cr Clr Drug Dosing ml/min eGFR BUN/Creatinine Ratio (10-20) Glucose (70-99(Fasting)) mg/dl POC Glucose 195 H (70-99) mg/dl Lactate 1.5 (0.4-2.0) mmol/L Calcium (8.6-10.3) mg/dl Magnesium (1.7-2.4) mg/dl Total Bilirubin (0.2-1.0) mg/dl AST (13-39) U/L ALT (7-52) U/L Alkaline Phosphatase (34-104) U/L Troponin I High Sens (0-20) pg/ml Total Protein (6.0-8.3) gm/dl Albumin (3.4-5.0) gm/dl Globulin (2.5-4.0) gm/dl Albumin/Globulin Ratio (0.9-2) Urine Color Urine Appearance (Clear) Urine pH (4.5-7.5) Ur Specific [place] (1.000-1.030) Urine Protein (Negative) Urine Glucose (UA) (Negative) Urine Ketones (Negative) Urine Blood (Negative) Urine Nitrite (Negative) Urine Bilirubin (Negative) Urine Urobilinogen (Negative) Ur Leukocyte Esterase (Negative) Urine Comment Random Vancomycin 17.9 (10-20) mcg/ml Blood Type B Negative Antibody Screen NEGATIVE Crossmatch See Detail 02/14/25 Range/Units 10:52 WBC 10.13 (4.8-10.8) K/ul RBC 2.15 L (4.70-6.10) M/uL Hgb 5.7 L* (14.0-18.0) g/dl Hct 18.7 L* (42.0-52.0) % MCV 87.0 (80.0-100.0) fL MCH 26.5 (25.0-34.0) pg MCHC 30.5 L (32.0-36.0) g/dL RDW Std Deviation 56.2 H (36.4-46.3) fL RDW Coeff of Juan Manuel 17.9 H (11.5-14.5) % Plt Count 338 (130-400) K/uL MPV 10.4 (9.4-12.4) fL Immature Gran % (Auto) 0.7 % Neut % (Auto) 69.7 % Lymph % (Auto) 15.7 % Bell % (Auto) 10.4 % Eos % (Auto) 2.5 % Baso % (Auto) 1.0 % Neut # (Auto) 7.07 H (1.40-6.50) K/uL Lymph # (Auto) 1.59 (1.20-3.40) K/uL Bell # (Auto) 1.05 H (0.11-0.59) K/uL Eos # (Auto) 0.25 (0.00-0.50) K/uL Baso # (Auto) 0.10 (0.00-0.20) K/uL Immature Gran # (Auto) 0.07 (0.01-0.20) K/uL Polychromasia 1+ Ovalocytes 1+ Sodium 136 (136-145) mmol/L Potassium 3.8 (3.5-5.1) mmol/L Chloride 106 (98-107) mmol/L Carbon Dioxide 22 (21-32) mmol/L Anion Gap 8 (3-11) BUN 56 H (6-23) mg/dl Creatinine 1.18 (0.6-1.4) mg/dl Est Cr Clr Drug Dosing 81.1 ml/min eGFR 67.63 BUN/Creatinine Ratio 47.5 H (10-20) Glucose 184 H (70-99(Fasting)) mg/dl POC Glucose (70-99) mg/dl Lactate (0.4-2.0) mmol/L Calcium 8.6 (8.6-10.3) mg/dl Magnesium 2.1 (1.7-2.4) mg/dl Total Bilirubin 0.3 (0.2-1.0) mg/dl AST 14 (13-39) U/L ALT 8 (7-52) U/L Alkaline Phosphatase 156 H (34-104) U/L Troponin I High Sens 7.3 (0-20) pg/ml Total Protein 6.8 (6.0-8.3) gm/dl Albumin 3.5 (3.4-5.0) gm/dl Globulin 3.3 (2.5-4.0) gm/dl Albumin/Globulin Ratio 1.1 (0.9-2) Urine Color Urine Appearance (Clear) Urine pH (4.5-7.5) Ur Specific [place] (1.000-1.030) Urine Protein (Negative) Urine Glucose (UA) (Negative) Urine Ketones (Negative) Urine Blood (Negative) Urine Nitrite (Negative) Urine Bilirubin (Negative) Urine Urobilinogen (Negative) Ur Leukocyte Esterase (Negative) Urine Comment Random Vancomycin (10-20) mcg/ml Blood Type Antibody Screen Crossmatch PG Care Time/CCT Total # of Minutes Spent Total Time Spent with Patient: Total time spent is greater than 50% in coordination of care (as documented) at patient's floor/unit and/or counseling patient: Coding Level of Care Code 18120 INT INP/OBS CARE 2/55MIN Diagnoses Acute on chronic anemia D64.9
--- NOTE | 2025-02-15 08:40 | Hospitalist Progress Note ---
Date of Service February 15, 2025 Assessment & Plan (1) Syncope: (2) Melena: (3) Acute on chronic anemia: (4) Prosthetic joint infection of left hip: Plan Per admitting provider w/ addendum: Patient is a medically complex 69-year-old male with past medical history significant for T1DM with DM peripheral angiopathy, CKD stage II, acquired hypothyroidism, HLD, HTN, CAD with history of NSTEMI in setting of DKA s/p cardiac catheterization in August 2015 demonstrating 50-60% serial mid RCA lesion with distal RPLB lesion thought to be culprit (distal lesion not amenable to revascularization) and 30% mid LAD lesion, history of PAF in setting of alcohol withdrawal with no known recurrence, chronic HFpEF, aortic root and ascending aorta enlargement, COPD, chronic alcohol abuse, CHANTELL on CPAP, seizure disorder, history of venous insufficiency with multiple vascular interventions, history of osteomyelitis of the hands with multiple bilateral finger amputations, history of orthostatic hypotension, GERD with esophagitis, mass of left liver lobe, mo rbid obesity, BPH with LUTS, MGUS and hearing loss of left ear who presented to the ED via EMS from [facility] after sustaining a syncopal episode. Syncopal event ISO acute on chronic anemia, suspected upper GI bleed as outlined below TTE for completeness ordered on admission given his cardiac history Fall precautions Chest CTA: no PE, no acute intrathoracic findings, mild cardiomegaly, mod-large hiatal hernia Acute on chronic anemia Melena ISO suspected upper GI bleed Hgb 5.7 on admission 2U PRBCs ordered in ED, follow repeat H/H trend overnight Hold DAPT including ASA and Plavix Appreciate GI consult NPO at [place] for possible EGD in AM IV Protonix bolus and drip started in ED 02/14 Received another unit (3rd) overnight for Hgb 6.4 - H&H was not rechecked afterwards, per RN pt is currently on 4th unit of blood Per GI - plan for EGD CBC for this AM pending History of elective L hip arthroplasty in July 2024 Prosthetic joint infection of L hip Initial L hip arthroplasty c/b postop fall in September 2024 with resultant periprosthetic fx -S/p ORIF of the L femur performed by Dr. Carty at [facility] on 10/06/2024 Also had L hip wound dehiscence back in September 2024 and was admitted under our service -Completed 1mo course of Bactrim and doxycycline at this time d/t c/f supe rficial wound infection Then started to experience significant degree of L hip pain in late December 2024 -There was high clinical concern at this time for possible prosthetic joint infection -Admitted at [facility] 01/16/2025-01/19/2025 for L hip arthroplasty revision with placement of ABX spacer (surgery occurred on 01/16/25) -Intraop sustained 1L blood loss which resulted in significant postop ABLA requiring a total of 3U PRBCs to be given during that admission -Hardware cultures grew Staph epidermis -ID recommended: IV vancomycin (EOT 02/27/2025) plus po rifampin 600mg daily (EOT 04/21/2025), then will need to start po doxycycline 100mg BID AFTER completion of IV vancomycin for PJI prophylaxis Continue IV vancomycin and po rifampin as outlined above per previous ID recs -Pt missed full dose of IV vancomycin today 2/2 syncopal event so will check trough level and restart with appropriate dosage per pharm Continue daily probiotic while on above ABX ID follow-up appt with Dr. Roger on 03/20/2025 at [facility] L femur CT today noting an ununited fracture at the proximal shaft -Previous L hip XR from 01/16/2025 shows no fractures per chart review -? if this is new or expected postsurgical changes as his L hip XR today stated: "There is a partially healed fracture proximal shaft of the left femur with improved alignment compared to the prior exam. There is lucency around the distal aspect of the left hip prosthesis which could represent residual lucency from the fracture or hardware loosening. There is heterotopic ossification surrounding the proximal to mid shaft of the left femur. No new fracture or dislocation seen." -Appreciate ortho consult for further eval of this --> will consult [facility] as pt had initial L hip arthroplasty done by Dr. Mccann [facility] consulted - recommend to follow up w/ [facility] - per pt - he is to follow up in March Acquired hypothyroidism Continue levothyroxine History of alcohol use No alcoholic consumption since September 2024 per discussion with the patient Prior to that, patient was consuming 1 pint of bourbon and occasionally a "few beers"/day x >10yrs Continue folic acid and thiamine supplementation HTN Continue Norvasc and losartan with hold parameters HLD CAD with history of NSTEMI in setting of DKA in August 2015 Continue BB Holding DAPT for now - as outlined above Chronic HFpEF Appears euvolemic on exam Continue Lasix and monitor daily wts/I&Os K+ stable, continue po supplementation History of GERD with esophagitis Hold po PPI for now while on IV Protonix drip - as per above BPH with LUTS Continue Proscar and Flomax DM peripheral neuropathy Continue gabapentin Depression Continue venlafaxine DVT Prophylaxis: SCDs/TEDs only in light of above Disposition: PCU Admission and Anticipated Discharge Date Admission Date: February 14, 2025 Subjective Pt seen in follow up Presents with syncope - found to be anemic Also s/p recent hip surgery, currently on vanco and rifampin per ID Currently sitting up in bed in NAD, getting blood transfusion Denies fever, chills, chest pain, shortness of breath Does report having very dark stool prior to admission Seen by GI - plan for EGD, cont. PPI Seen by orthopedics - plan to follow up w/ [facility] Review of Systems Review of Systems: All systems reviewed & are unremarkable except as noted in Subjective Physical Exam Physical Exam: Lying in bed without any acute distress Chestclear to auscultate bilaterally HeartS1-S2, regular Abdomen soft, nontender Extremities L thigh edema, scar healed, no erythema, or drainage, moves extremities CNSalert, awake oriented x 3, speech fluent, answers appropriately Results & Data Results & Data Vital Signs (Past 12 Hours) Vital Signs Temp Pulse Pulse Pulse Resp BP BP 02/15/25 08:01 80 16 150/65 H 02/15/25 07:10 36.6 C 98 H 18 143/68 H 02/15/25 06:28 36.7 C 74 18 128/60 02/15/25 05:28 36.7 C 75 20 125/62 02/15/25 04:58 36.8 C 74 18 127/79 02/15/25 04:43 36.8 C 78 18 125/57 L 02/15/25 04:27 36.7 C 73 16 135/51 L 02/15/25 03:41 36.6 C 76 20 127/69 02/15/25 02:15 81 21 02/14/25 22:46 36.8 C 86 16 151/77 H 02/14/25 22:31 76 21 02/14/25 22:28 85 02/14/25 22:21 36.9 C 87 16 152/74 H 02/14/25 21:21 36.9 C 95 H 18 127/67 02/14/25 20:52 37.3 C 92 H 18 145/83 H 02/14/25 20:51 37.3 C 92 H 18 145/83 H 02/14/25 20:51 37.3 C 92 H 18 145/83 H 02/14/25 20:50 37.3 C 92 H 18 145/83 H 02/14/25 20:38 37.6 C H 92 H 18 140/45 L Pulse Ox O2 Del Method 02/15/25 08:01 99 CPAP 02/15/25 07:10 98 CPAP 02/15/25 06:28 97 02/15/25 05:28 96 02/15/25 04:58 97 02/15/25 04:43 96 02/15/25 04:27 99 02/15/25 03:41 99 Room Air, BiPAP 02/15/25 02:15 96 02/14/25 22:46 97 02/14/25 22:31 100 02/14/25 22:28 02/14/25 22:21 97 02/14/25 21:21 98 02/14/25 20:52 96 02/14/25 20:51 96 02/14/25 20:51 96 02/14/25 20:50 96 02/14/25 20:38 97 Laboratory Results 02/15/25 02/15/25 02/15/25 Range/Units 06:38 06:34 02:33 WBC (4.8-10.8) K/ul RBC (4.70-6.10) M/uL Hgb 6.4 L* (14.0-18.0) g/dl Hct 20.8 L* (42.0-52.0) % MCV (80.0-100.0) fL MCH (25.0-34.0) pg MCHC (32.0-36.0) g/dL RDW Std Deviation (36.4-46.3) fL RDW Coeff of Juan Manuel (11.5-14.5) % Plt Count (130-400) K/uL MPV (9.4-12.4) fL Immature Gran % (Auto) % Neut % (Auto) % Lymph % (Auto) % [place] % (Auto) % Eos % (Auto) % Baso % (Auto) % Neut # (Auto) (1.40-6.50) K/uL Lymph # (Auto) (1.20-3.40) K/uL [place] # (Auto) (0.11-0.59) K/uL Eos # (Auto) (0.00-0.50) K/uL Baso # (Auto) (0.00-0.20) K/uL Immature Gran # (Auto) (0.01-0.20) K/uL Polychromasia Ovalocytes Sodium (136-145) mmol/L Potassium (3.5-5.1) mmol/L Chloride (98-107) mmol/L Carbon Dioxide (21-32) mmol/L Anion Gap (3-11) BUN (6-23) mg/dl Creatinine (0.6-1.4) mg/dl Est Cr Clr Drug Dosing ml/min eGFR BUN/Creatinine Ratio (10-20) Glucose (70-99(Fasting)) mg/dl POC Glucose 373 H* 388 H* (70-99) mg/dl Lactate (0.4-2.0) mmol/L Calcium (8.6-10.3) mg/dl Magnesium (1.7-2.4) mg/dl Total Bilirubin (0.2-1.0) mg/dl AST (13-39) U/L ALT (7-52) U/L Alkaline Phosphatase (34-104) U/L Troponin I High Sens (0-20) pg/ml Total Protein (6.0-8.3) gm/dl Albumin (3.4-5.0) gm/dl Globulin (2.5-4.0) gm/dl Albumin/Globulin Ratio (0.9-2) Urine Color Urine Appearance (Clear) Urine pH (4.5-7.5) Ur Specific [place] (1.000-1.030) Urine Protein (Negative) Urine Glucose (UA) (Negative) Urine Ketones (Negative) Urine Blood (Negative) Urine Nitrite (Negative) Urine Bilirubin (Negative) Urine Urobilinogen (Negative) Ur Leukocyte Esterase (Negative) Urine Comment Random Vancomycin (10-20) mcg/ml Blood Type Antibody Screen Crossmatch 02/15/25 02/15/25 02/14/25 Range/Units 00:22 00:18 Unknown WBC (4.8-10.8) K/ul RBC (4.70-6.10) M/uL Hgb (14.0-18.0) g/dl Hct (42.0-52.0) % MCV (80.0-100.0) fL MCH (25.0-34.0) pg MCHC (32.0-36.0) g/dL RDW Std Deviation (36.4-46.3) fL RDW Coeff of Juan Manuel (11.5-14.5) % Plt Count (130-400) K/uL MPV (9.4-12.4) fL Immature Gran % (Auto) % Neut % (Auto) % Lymph % (Auto) % [place] % (Auto) % Eos % (Auto) % Baso % (Auto) % Neut # (Auto) (1.40-6.50) K/uL Lymph # (Auto) (1.20-3.40) K/uL [place] # (Auto) (0.11-0.59) K/uL Eos # (Auto) (0.00-0.50) K/uL Baso # (Auto) (0.00-0.20) K/uL Immature Gran # (Auto) (0.01-0.20) K/uL Polychromasia Ovalocytes Sodium (136-145) mmol/L Potassium (3.5-5.1) mmol/L Chloride (98-107) mmol/L Carbon Dioxide (21-32) mmol/L Anion Gap (3-11) BUN (6-23) mg/dl Creatinine (0.6-1.4) mg/dl Est Cr Clr Drug Dosing ml/min eGFR BUN/Creatinine Ratio (10-20) Glucose (70-99(Fasting)) mg/dl POC Glucose 290 H 322 H* (70-99) mg/dl Lactate (0.4-2.0) mmol/L Calcium (8.6-10.3) mg/dl Magnesium (1.7-2.4) mg/dl Total Bilirubin (0.2-1.0) mg/dl AST (13-39) U/L ALT (7-52) U/L Alkaline Phosphatase (34-104) U/L Troponin I High Sens (0-20) pg/ml Total Protein (6.0-8.3) gm/dl Albumin (3.4-5.0) gm/dl Globulin (2.5-4.0) gm/dl Albumin/Globulin Ratio (0.9-2) Urine Color Yellow Urine Appearance Clear (Clear) Urine pH 5.5 (4.5-7.5) Ur Specific [place] 1.026 (1.000-1.030) Urine Protein Negative (Negative) Urine Glucose (UA) Negative (Negative) Urine Ketones 2+ H (Negative) Urine Blood Negative (Negative) Urine Nitrite Negative (Negative) Urine Bilirubin Negative (Negative) Urine Urobilinogen Negative (Negative) Ur Leukocyte Esterase Negative (Negative) Urine Comment Random Vancomycin (10-20) mcg/ml Blood Type Antibody Screen Crossmatch 02/14/25 02/14/25 02/14/25 Range/Units 20:36 20:18 11:55 WBC (4.8-10.8) K/ul RBC (4.70-6.10) M/uL Hgb (14.0-18.0) g/dl Hct (42.0-52.0) % MCV (80.0-100.0) fL MCH (25.0-34.0) pg MCHC (32.0-36.0) g/dL RDW Std Deviation (36.4-46.3) fL RDW Coeff of Juan Manuel (11.5-14.5) % Plt Count (130-400) K/uL MPV (9.4-12.4) fL Immature Gran % (Auto) % Neut % (Auto) % Lymph % (Auto) % [place] % (Auto) % Eos % (Auto) % Baso % (Auto) % Neut # (Auto) (1.40-6.50) K/uL Lymph # (Auto) (1.20-3.40) K/uL [place] # (Auto) (0.11-0.59) K/uL Eos # (Auto) (0.00-0.50) K/uL Baso # (Auto) (0.00-0.20) K/uL Immature Gran # (Auto) (0.01-0.20) K/uL Polychromasia Ovalocytes Sodium (136-145) mmol/L Potassium (3.5-5.1) mmol/L Chloride (98-107) mmol/L Carbon Dioxide (21-32) mmol/L Anion Gap (3-11) BUN (6-23) mg/dl Creatinine (0.6-1.4) mg/dl Est Cr Clr Drug Dosing ml/min eGFR BUN/Creatinine Ratio (10-20) Glucose (70-99(Fasting)) mg/dl POC Glucose 195 H (70-99) mg/dl Lactate 1.5 (0.4-2.0) mmol/L Calcium (8.6-10.3) mg/dl Magnesium (1.7-2.4) mg/dl Total Bilirubin (0.2-1.0) mg/dl AST (13-39) U/L ALT (7-52) U/L Alkaline Phosphatase (34-104) U/L Troponin I High Sens (0-20) pg/ml Total Protein (6.0-8.3) gm/dl Albumin (3.4-5.0) gm/dl Globulin (2.5-4.0) gm/dl Albumin/Globulin Ratio (0.9-2) Urine Color Urine Appearance (Clear) Urine pH (4.5-7.5) Ur Specific [place] (1.000-1.030) Urine Protein (Negative) Urine Glucose (UA) (Negative) Urine Ketones (Negative) Urine Blood (Negative) Urine Nitrite (Negative) Urine Bilirubin (Negative) Urine Urobilinogen (Negative) Ur Leukocyte Esterase (Negative) Urine Comment Random Vancomycin 17.9 (10-20) mcg/ml Blood Type B Negative Antibody Screen NEGATIVE Crossmatch See Detail 02/14/25 Range/Units 10:52 WBC 10.13 (4.8-10.8) K/ul RBC 2.15 L (4.70-6.10) M/uL Hgb 5.7 L* (14.0-18.0) g/dl Hct 18.7 L* (42.0-52.0) % MCV 87.0 (80.0-100.0) fL MCH 26.5 (25.0-34.0) pg MCHC 30.5 L (32.0-36.0) g/dL RDW Std Deviation 56.2 H (36.4-46.3) fL RDW Coeff of Juan Manuel 17.9 H (11.5-14.5) % Plt Count 338 (130-400) K/uL MPV 10.4 (9.4-12.4) fL Immature Gran % (Auto) 0.7 % Neut % (Auto) 69.7 % Lymph % (Auto) 15.7 % [place] % (Auto) 10.4 % Eos % (Auto) 2.5 % Baso % (Auto) 1.0 % Neut # (Auto) 7.07 H (1.40-6.50) K/uL Lymph # (Auto) 1.59 (1.20-3.40) K/uL [place] # (Auto) 1.05 H (0.11-0.59) K/uL Eos # (Auto) 0.25 (0.00-0.50) K/uL Baso # (Auto) 0.10 (0.00-0.20) K/uL Immature Gran # (Auto) 0.07 (0.01-0.20) K/uL Polychromasia 1+ Ovalocytes 1+ Sodium 136 (136-145) mmol/L Potassium 3.8 (3.5-5.1) mmol/L Chloride 106 (98-107) mmol/L Carbon Dioxide 22 (21-32) mmol/L Anion Gap 8 (3-11) BUN 56 H (6-23) mg/dl Creatinine 1.18 (0.6-1.4) mg/dl Est Cr Clr Drug Dosing 81.1 ml/min eGFR 67.63 BUN/Creatinine Ratio 47.5 H (10-20) Glucose 184 H (70-99(Fasting)) mg/dl POC Glucose (70-99) mg/dl Lactate (0.4-2.0) mmol/L Calcium 8.6 (8.6-10.3) mg/dl Magnesium 2.1 (1.7-2.4) mg/dl Total Bilirubin 0.3 (0.2-1.0) mg/dl AST 14 (13-39) U/L ALT 8 (7-52) U/L Alkaline Phosphatase 156 H (34-104) U/L Troponin I High Sens 7.3 (0-20) pg/ml Total Protein 6.8 (6.0-8.3) gm/dl Albumin 3.5 (3.4-5.0) gm/dl Globulin 3.3 (2.5-4.0) gm/dl Albumin/Globulin Ratio 1.1 (0.9-2) Urine Color Urine Appearance (Clear) Urine pH (4.5-7.5) Ur Specific [place] (1.000-1.030) Urine Protein (Negative) Urine Glucose (UA) (Negative) Urine Ketones (Negative) Urine Blood (Negative) Urine Nitrite (Negative) Urine Bilirubin (Negative) Urine Urobilinogen (Negative) Ur Leukocyte Esterase (Negative) Urine Comment Random Vancomycin (10-20) mcg/ml Blood Type Antibody Screen Crossmatch Medications Administered Current Inpatient Medications Acetaminophen (Acetaminophen 325 Mg Tab) 650 mg PO Q4H PRN PRN Reason: Pain or Fever Stop: 03/16/25 17:21 Amlodipine Besylate (Amlodipine Besylate 5 Mg Tab) 5 mg PO QAM YUNIOR Stop: 03/17/25 08:59 Artificial Tears (Artificial Tears) 1 drops OP QID PRN PRN Reason: Dryness Stop: 03/16/25 19:31 Atorvastatin Calcium (Atorvastatin 40 Mg Tab) 40 mg PO QAM YUNIOR Stop: 03/17/25 08:59 Dextrose (Dextrose 50% 50 Ml Syringe) 25 - 50 ml IV UD PRN; Protocol PRN Reason: Hypoglycemia Protocol Stop: 03/16/25 16:57 Finasteride (Finasteride 5 Mg Tab) 5 mg PO QPM YUNIOR Stop: 03/16/25 20:59 Last Admin: 02/14/25 21:27 Dose: 5 mg Folic Acid (Folic Acid 1 Mg Tab) 1 mg PO QAM YUNIOR Stop: 03/17/25 08:59 Furosemide (Furosemide 40 Mg Tab) 40 mg PO BID@0800,1200 YUNIOR Stop: 03/17/25 07:59 Gabapentin (Gabapentin 300 Mg Cap) 300 mg PO BID YUNIOR Stop: 03/16/25 20:59 Last Admin: 02/14/25 21:27 Dose: 300 mg Glucagon (Glucagon For Inj 1 Mg Vial) 1 mg SQ UD PRN; Protocol PRN Reason: Hypoglycemia Protocol Stop: 03/16/25 16:57 Glucose (Glucose 40% Gel 15 Gm Tube) 15 - 30 gm PO UD PRN; Protocol PRN Reason: Hypoglycemia Protocol Stop: 03/16/25 16:57 Glucose (Glucose 10 Tab/Tube) 4 - 8 tab PO UD PRN; Protocol PRN Reason: Hypoglycemia Protocol Stop: 03/16/25 16:57 Heparin Sodium (Beef Lung) (Heparin 10 Unit/Ml 5 Ml Flush) 5 ml FLUSH PRN PRN PRN Reason: Flush Stop: 03/17/25 04:37 Pantoprazole Sodium 40 mg/ (Dextrose) 100 mls @ 20 mls/hr IV Q5H YUNIOR Stop: 03/16/25 17:14 Last Admin: 02/15/25 07:43 Dose: 8 mg/hr, 20 mls/hr Vancomycin HCl (Vancomycin Hcl / Nss) 1,000 mg in 270 mls @ 200 mls/hr IV Q12H YUNIOR Stop: 02/28/25 21:59 Last Infusion: 02/15/25 00:41 Dose: Infused Sodium Chloride (Nss) 100 mls @ 15 mls/hr IV .Q6H40M PRN PRN Reason: For Transfusion Duration Stop: 02/15/25 11:33 Insulin Aspart (Insulin Aspart Per Unit Charge) 0 units SC Q6 YUNIOR Stop: 03/17/25 00:00 Last Admin: 02/15/25 06:42 Dose: 16 units Insulin Aspart (Insulin Aspart Per Unit Charge) 0 units SC 0900 ONE Stop: 02/15/25 09:01 Lactobacillus Acidophilus (Advanced Probiotic 625 Mg Capsule) 625 mg PO DAILY YUNIOR Stop: 03/17/25 08:59 Levothyroxine Sodium (Levothyroxine Sodium 125 Mcg Tablet) 125 mcg PO DAILYBB YUNIOR Stop: 03/17/25 06:29 Last Admin: 02/15/25 06:44 Dose: 125 mcg Losartan Potassium (Losartan Potassium 50 Mg Tab) 50 mg PO QAM YUNIOR Stop: 03/17/25 08:59 Magnesium Hydroxide (Magnesium Hydroxide Susp 30 Ml Udc) 30 ml PO Q12H PRN PRN Reason: Constipation Stop: 03/16/25 17:21 Metoprolol Succinate (Metoprolol Succ 25mg Ext Rel Tab) 25 mg PO AMHS YUNIOR Stop: 03/16/25 20:59 Last Admin: 02/14/25 21:27 Dose: 25 mg Miscellaneous (Carbohydrates For Hypoglycemia ) 15 - 30 gm PO UD PRN PRN Reason: Hypoglycemia Protocol Stop: 03/16/25 16:57 Miscellaneous Information (Pharmacy Glycemic Mgmt Consult) 1 each N/A UD PRN PRN Reason: Consult Stop: 03/16/25 16:57 Miscellaneous Information (Vancomycin Consult Active) 1 each N/A UD PRN PRN Reason: Consult Stop: 03/16/25 17:05 Multivitamins/Minerals (Cerovite Adv Formula Tab) 1 tab PO DAILY YUNIOR Stop: 03/17/25 08:59 Ondansetron HCl (Ondansetron Inj 2 Mg/Ml 2 Ml Vial) 4 mg IV Q6H PRN PRN Reason: Nausea Stop: 03/16/25 17:21 Polyethylene Glycol (Polyethylene (Miralax) 17 Gm Pack) 17 gm PO DAILY PRN PRN Reason: Constipation Stop: 03/16/25 17:21 Potassium Chloride (Potassium Chloride Crtab 20 Meq Tabcr) 20 meq PO BID YUNIOR Stop: 03/16/25 20:59 Last Admin: 02/14/25 21:26 Dose: 20 meq Rifampin (Rifampin 300 Mg Capsule) 600 mg PO QAM YUNIOR Stop: 03/16/25 17:14 Last Admin: 02/14/25 21:26 Dose: 600 mg Tamsulosin HCl (Tamsulosin Hcl 0.4 Mg Cap) 0.4 mg PO HS YUNIOR Stop: 03/16/25 20:59 Last Admin: 02/14/25 21:27 Dose: 0.4 mg Thiamine HCl (Thiamine Hcl 100 Mg Tab) 100 mg PO QAM YUNIOR Stop: 03/17/25 08:59 Venlafaxine HCl (Venlafaxine Hcl Xr 150 Mg Capxr) 150 mg PO QAM YUNIOR Stop: 03/17/25 08:59 (1) Syncope Syncope type: unspecified Qualified Code(s): R55 - Syncope and collapse (4) Prosthetic joint infection of left hip Encounter type: sequela Qualified Code(s): T84.52XS - Infection and inflammatory reaction due to internal left hip prosthesis, sequela
[2025-02-15] MEDS: LOSARTAN POTASSIUM 50 MG TAB PO SCH (09:11)
[2025-02-15] MEDS: VENLAFAXINE HCL XR 150 MG CAPXR PO SCH (09:11)
[2025-02-15] MEDS: ATORVASTATIN 40 MG TAB PO SCH (09:11)
[2025-02-15] MEDS: CEROVITE ADV FORMULA TAB PO SCH (09:11)
[2025-02-15] MEDS: ADVANCED PROBIOTIC 625 MG CAPSULE PO SCH (09:11)
[2025-02-15] MEDS: THIAMINE HCL 100 MG TAB PO SCH (09:12)
[2025-02-15] MEDS: FUROSEMIDE 40 MG TAB PO SCH (09:12)
[2025-02-15] MEDS: FOLIC ACID 1 MG TAB PO SCH (09:12)
[2025-02-15] MEDS: INSULIN ASPART PER UNIT CHARGE SC ONE (09:13)
--- NOTE | 2025-02-15 10:18 | Orthopedic Consultation ---
Date of Service February 15, 2025 Assessment & Plan (1) Prosthetic joint infection of left hip: * Case/imaging reviewed and discussed with Katarzyna Mccann and Izabela, evaluated bedside with Dr Gurrola * Recommend continued plan of care per [facility] * PJI is being managed appropriately, no surgical intervention indicated at this time * Will require continued abx suppression per their ID team recommendations * Ultimately will need staged revision with [facility] ortho once infection clears * Discussed that femur ORIF hardware was removed prior to fracture healing and weight bearing may be stressing the fracture site, recommend decreasing weight-bearing to Toe-touch/balance and transfers only to protect further fracture displacement * Weight bearing status: TTWB * Daily treatment: Physical Therapy/ Occupational Therapy per protocol * Pain control * Disposition: TBD * Remainder care per primary team * Will follow peripherally, patient to follow-up with [facility] team as scheduled * * Patient seen and examined, agree with above listed plan. History of Present Illness Reason for Consultation: L thigh pain, h/o SHANNAN, ORIF, and revision SHANNAN for infection Requesting Physician: . Attending Physician: Aristeo Wise MD . Patient is a 69 y/o male with L thigh pain. PMH including T1DM with DM peripheral angiopathy, CKD stage II, acquired hypothyroidism, HLD, HTN, CAD with history of NSTEMI in setting of DKA s/p cardiac catheterization in August 2015 demonstrating 50-60% serial mid RCA lesion with distal RPLB lesion thought to be culprit (distal lesion not amenable to revascularization) and 30% mid LAD lesion, history of PAF in setting of alcohol withdrawal with no known recurrence, chronic HFpEF, aortic root and ascending aorta enlargement, COPD, chronic alcohol abuse, CHANTELL on CPAP, seizure disorder, history of venous insufficiency with multiple vascular interventions, history of osteomyelitis of the hands with multiple bilateral finger amputations, history of orthostatic hypotension, GERD with esophagitis, mass of left liver lobe, morbid obesity, BPH with LUTS, MGUS and hearing loss of left ear who presented to the ED via EMS from [facility] after sustaining a syncopal episode. Well known to Ortho team with h/o L primary SHANNAN by Dr Mccann 08/04/24, subsequent partial wound dehiscence, fall with periprosthetic left femur fracture transferred to and repaired at [facility], subsequent SHANNAN infection and is now s/p hardware removal and staged revision to antibiotic spacer. Continues to follow with [facility] ortho and ID teams, on antibiotic suppression. Has been WBAT on left leg per their recommendations. Reports worsening L thigh pain over the past 1-2 weeks limiting his ambulation. Current workup including XR and CT L hip/femur demonstrating intact hip hardware, evidence of removed femur plate, and visible fracture line at tip of hip prosthesis consistent with his previous meeta prosthetic fracture. Admitted to hospital medicine team secondary to syncopal event and melena, ongoing workup. Orthopedics consulted for management recommendations. At time of exam patient lying comfortably in bed, no acute distress. Reports worsening L thigh pain with ambulation over the past 1-2 weeks. Denies new fall or trauma. Uses walker at baseline. Denies fevers, chills, or drainage from hip incisions. Is scheduled to follow-up with [facility] team in March. Allergies Allergy/AdvReac Type Severity Reaction Status Date / Time DEIDRE Inhibitors AdvReac Unknown Cough Verified 02/14/25 16:52 Home Medications Medication Instructions Recorded Confirmed Type clopidogrel 75 mg tablet (Plavix) 75 mg PO QAM 02/04/18 02/14/25 History finasteride 5 mg tablet 5 mg PO QPM 02/04/18 02/14/25 History folic acid 1 mg tablet 1 mg PO QAM 02/04/18 02/14/25 History levothyroxine 125 mcg tablet 125 mcg PO DAILYBB 02/04/18 02/14/25 History tamsulosin 0.4 mg capsule (Flomax) 0.4 mg PO HS 02/04/18 02/14/25 History losartan 50 mg tablet 50 mg PO QAM 05/13/18 02/14/25 History atorvastatin 40 mg tablet 40 mg PO QAM 04/14/20 02/14/25 History metoprolol succinate 25 mg 25 mg PO AMHS 04/14/20 02/14/25 History tablet,extended release 24 hr amlodipine 5 mg tablet 5 mg PO QAM 07/12/20 02/14/25 History insulin aspart U-100 100 unit/mL 0 unit subcut CONTINOUS 07/12/20 02/14/25 History subcutaneous solution gabapentin 300 mg capsule 300 mg PO BID 03/13/21 02/14/25 History nitroglycerin 0.4 mg sublingual 0.4 mg sublingual DIRECTED PRN 03/20/23 02/14/25 History tablet Chest Pain venlafaxine 150 mg 150 mg PO QAM 03/20/23 02/14/25 History capsule,extended release 24 hr mv-mn-folic 200 mcg-vit K 15 1 cap PO DAILY 04/12/24 02/14/25 History mcg-lutein 5 mg-zeaxanthin 1 mg capsule (PreserVision AREDS 2 Plus Multivit) aspirin 81 mg tablet,delayed 81 mg PO BID #0 tabs 08/04/24 02/14/25 Rx release potassium chloride 20 mEq 20 meq PO AMHS 09/13/24 02/14/25 History tablet,extended release(part/cryst) L.acidop,casei,lactis,rham-B.lact,mily 1 cap PO DAILY #14 caps 09/15/24 02/14/25 Rx 625 mg (10 billion cell) capsule (Advanced Probiotic) thiamine HCl (vitamin B1) 100 mg 100 mg PO QAM #30 tabs 09/15/24 02/14/25 Rx tablet cyclosporine 0.05 % eye drops in a 1 drp OPB Q12H 02/14/25 02/14/25 History dropperette (Restasis) furosemide 40 mg tablet 40 mg PO BID 02/14/25 02/14/25 History pantoprazole 40 mg tablet,delayed 40 mg PO BID 02/14/25 02/14/25 History release Past Med/Surg History Problem List (Updated 02/15/25 @ 07:10 by Tony Stockton, DO) BOGGS (dyspnea on exertion) (Acute) Syncope (Acute) Acute on chronic anemia (Acute) Prosthetic joint infection of left hip Acute on chronic anemia Melena Acute hyponatremia (Acute) Dehiscence of wound (Acute) Alcohol intoxication (Acute) Non-ST elevation PR (NSTEMI) (Acute) Unspecified open wound, left thigh, initial encounter (Acute) Anemia (Acute) Syncope and collapse (Acute) Aftercare following left hip joint replacement surgery Status post left hip replacement Chronic venous insufficiency (Chronic) Balance disorder PAF (paroxysmal atrial fibrillation) Iron deficiency anemia Sleep apnea CPAP Loss of protective sensation of skin of foot Diabetic peripheral neuropathy associated with type 2 diabetes mellitus HTN (hypertension) CAD (coronary artery disease) F/U [facility] COPD (chronic obstructive pulmonary disease) (Chronic) Alcohol dependence (Chronic) Aortic root enlargement (Chronic) BPH (benign prostatic hyperplasia) (Chronic) GERD (gastroesophageal reflux disease) (Chronic) Medical History Osteoarthritis of left hip MGUS (monoclonal gammopathy of unknown significance) Liver mass CKD (chronic kidney disease) stage 3, GFR 30-59 ml/min Type 1 diabetes mellitus insulin pump Hypothyroidism BPH (benign prostatic hyperplasia) CAD (coronary artery disease) s/p NSTEMI 2016-see cardiology 06/29/24 note for catheterization details- medical management advised Sleep apnea CPAP-compliant History of seizures unknown details regarding dx, last one approx 2018. Unknown details regarding etiology. Has neurologist but mainly focus is on neuropathy per pt. Denies seizure medication. History of myocardial infarction (~2015) History of atrial fibrillation Frequent falls hx, has improved. Balance disorder Neuropathy Chronic venous insufficiency hx sx. COPD (chronic obstructive pulmonary disease) controlled, stable per pt-lost to f/u with [facility] pulmonology per chart review/patient-denies inhaler use History of pneumonia (2021) History of COVID-19 (2019) Iron deficiency anemia monitors Aortic root enlargement Poor historian Depression Hyperlipidemia HTN (hypertension) controlled, stable per pt Cataracts, both eyes [place] (hard of hearing) left ear worse History of colon polyps Hiatal hernia Dyspnea on effort Chronic heart failure with preserved ejection fraction (HFpEF) EF 50-55% Alcohol abuse Hyponatremia GERD (gastroesophageal reflux disease) controlled, stable per pt Dyslipidemia Surgical History History of ear surgery left History of eye surgery several right eye, hx injury. History of vascular surgery right for vericose veins. History of total right hip replacement History of endoscopy History of colonoscopy History of hand surgery BILAT HANDS-FINGER AMPUTATIONS History of cardiac cath 2019? [facility] History of tonsillectomy and adenoidectomy Family History Other Cancer Diabetes Hypertension Social History Smoking Status: Former smoker Tobacco Type: Cigarettes Cigarettes Per Day: 30; Smoking End Date: Jan 05, 1995; Second Hand Exposure: No; Do You Dip or Chew Tobacco: No; Hx Alcohol Use: Yes Alcohol type: hard liquor Alcohol Intake Frequency Comment: 8 oz hard liquor daily per pt Hx Substance Use: No Preferred Language: Citizen Of [place] Communication Ability: Effective Visual Impairment: Limited Hearing Ability: Hard of Hearing Shellfish Sorter Required: No Beliefs That Will Affect Care: None marital status: Current Living Situation: Spouse Current Living Situation Comment: Pt resides at home with , recently at [facility] for rehab current occupational status: employed 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 Physical Exam . * General: Alert and oriented, no acute distress * Constitutional: well-developed, well-nourished. * Respiratory: Normal respiratory effort, no distress * Gastrointestinal: No tenderness to palpation, no rigidity or guarding. * Skin: No rash or lesion. * Neurologic: Grossly normal * Musculoskeletal: L hip/thigh incisions well healed with no superficial sign of infection or dehiscence. Otherwise no obvious deformity or overlying skin changes to LLE. No TTP anterior hip region, lateral thigh, proximal thigh, distal thigh, or lower leg.No pain with log roll, hip IR/ER, flexion. AROM foot/toes intact. Sensation intact plantar/dorsal foot. Brisk capillary refill. Results & Data Results & Data Laboratory Results . 02/15/25 02/15/25 02/15/25 06:38 06:34 02:33 WBC RBC Hgb 6.4 L* Hct 20.8 L* MCV MCH MCHC RDW Std Deviation RDW Coeff of Juan Manuel Plt Count MPV Immature Gran % (Auto) Neut % (Auto) Lymph % (Auto) Baker % (Auto) Eos % (Auto) Baso % (Auto) Neut # (Auto) Lymph # (Auto) Baker # (Auto) Eos # (Auto) Baso # (Auto) Immature Gran # (Auto) Polychromasia Ovalocytes Sodium Potassium Chloride Carbon Dioxide Anion Gap BUN Creatinine Est Cr Clr Drug Dosing eGFR BUN/Creatinine Ratio Glucose POC Glucose 373 H* 388 H* Lactate Calcium Magnesium Total Bilirubin AST ALT Alkaline Phosphatase Troponin I High Sens Total Protein Albumin Globulin Albumin/Globulin Ratio Urine Color Urine Appearance Urine pH Ur Specific Troy Urine Protein Urine Glucose (UA) Urine Ketones Urine Blood Urine Nitrite Urine Bilirubin Urine Urobilinogen Ur Leukocyte Esterase Urine Comment Random Vancomycin Blood Type Antibody Screen Crossmatch 02/15/25 02/15/25 02/14/25 00:22 00:18 Unknown WBC RBC Hgb Hct MCV MCH MCHC RDW Std Deviation RDW Coeff of Juan Manuel Plt Count MPV Immature Gran % (Auto) Neut % (Auto) Lymph % (Auto) Baker % (Auto) Eos % (Auto) Baso % (Auto) Neut # (Auto) Lymph # (Auto) Baker # (Auto) Eos # (Auto) Baso # (Auto) Immature Gran # (Auto) Polychromasia Ovalocytes Sodium Potassium Chloride Carbon Dioxide Anion Gap BUN Creatinine Est Cr Clr Drug Dosing eGFR BUN/Creatinine Ratio Glucose POC Glucose 290 H 322 H* Lactate Calcium Magnesium Total Bilirubin AST ALT Alkaline Phosphatase Troponin I High Sens Total Protein Albumin Globulin Albumin/Globulin Ratio Urine Color Yellow Urine Appearance Clear Urine pH 5.5 Ur Specific Troy 1.026 Urine Protein Negative Urine Glucose (UA) Negative Urine Ketones 2+ H Urine Blood Negative Urine Nitrite Negative Urine Bilirubin Negative Urine Urobilinogen Negative Ur Leukocyte Esterase Negative Urine Comment Random Vancomycin Blood Type Antibody Screen Crossmatch 02/14/25 02/14/25 02/14/25 20:36 20:18 11:55 WBC RBC Hgb Hct MCV MCH MCHC RDW Std Deviation RDW Coeff of Juan Manuel Plt Count MPV Immature Gran % (Auto) Neut % (Auto) Lymph % (Auto) Baker % (Auto) Eos % (Auto) Baso % (Auto) Neut # (Auto) Lymph # (Auto) Baker # (Auto) Eos # (Auto) Baso # (Auto) Immature Gran # (Auto) Polychromasia Ovalocytes Sodium Potassium Chloride Carbon Dioxide Anion Gap BUN Creatinine Est Cr Clr Drug Dosing eGFR BUN/Creatinine Ratio Glucose POC Glucose 195 H Lactate 1.5 Calcium Magnesium Total Bilirubin AST ALT Alkaline Phosphatase Troponin I High Sens Total Protein Albumin Globulin Albumin/Globulin Ratio Urine Color Urine Appearance Urine pH Ur Specific Troy Urine Protein Urine Glucose (UA) Urine Ketones Urine Blood Urine Nitrite Urine Bilirubin Urine Urobilinogen Ur Leukocyte Esterase Urine Comment Random Vancomycin 17.9 Blood Type B Negative Antibody Screen NEGATIVE Crossmatch See Detail 02/14/25 10:52 WBC 10.13 RBC 2.15 L Hgb 5.7 L* Hct 18.7 L* MCV 87.0 MCH 26.5 MCHC 30.5 L RDW Std Deviation 56.2 H RDW Coeff of Juan Manuel 17.9 H Plt Count 338 MPV 10.4 Immature Gran % (Auto) 0.7 Neut % (Auto) 69.7 Lymph % (Auto) 15.7 Baker % (Auto) 10.4 Eos % (Auto) 2.5 Baso % (Auto) 1.0 Neut # (Auto) 7.07 H Lymph # (Auto) 1.59 Baker # (Auto) 1.05 H Eos # (Auto) 0.25 Baso # (Auto) 0.10 Immature Gran # (Auto) 0.07 Polychromasia 1+ Ovalocytes 1+ Sodium 136 Potassium 3.8 Chloride 106 Carbon Dioxide 22 Anion Gap 8 BUN 56 H Creatinine 1.18 Est Cr Clr Drug Dosing 81.1 eGFR 67.63 BUN/Creatinine Ratio 47.5 H Glucose 184 H POC Glucose Lactate Calcium 8.6 Magnesium 2.1 Total Bilirubin 0.3 AST 14 ALT 8 Alkaline Phosphatase 156 H Troponin I High Sens 7.3 Total Protein 6.8 Albumin 3.5 Globulin 3.3 Albumin/Globulin Ratio 1.1 Urine Color Urine Appearance Urine pH Ur Specific Troy Urine Protein Urine Glucose (UA) Urine Ketones Urine Blood Urine Nitrite Urine Bilirubin Urine Urobilinogen Ur Leukocyte Esterase Urine Comment Random Vancomycin Blood Type Antibody Screen Crossmatch Diagnostic Findings 02/14/25 CT L Femur FINDINGS: There is spray artifact from the metallic hip prosthesis. There is a comminuted minimally displaced minimally angulated ununited fracture proximal shaft of the left femur adjacent to the femoral component with surrounding heterotopic ossification. No other fracture or dislocation seen at the left f emur. There is a small area of relative low density just lateral to the proximal femoral shaft which could represent a small amount of low-density fluid or artifact. No evidence of soft tissue hematoma seen. IMPRESSION: 1. No evidence of hematoma. 2. Ununited fracture at the proximal shaft left femur as described. 02/14/25 XR L hip and pelvis FINDINGS: Visualized portion of the right hip prosthesis shows no hardware complication. There is a partially healed fracture proximal shaft of the left femur with improved alignment compared to the prior exam. There is lucency around the distal aspect of the left hip prosthesis which could represent residual lucency from the fracture or hardware loosening. There is heterotopic ossification surrounding the proximal to mid shaft of the left femur. No new fracture or dislocation seen. IMPRESSION: Pelvis and left hip as described. PG Care Time/CCT Total # of Minutes Spent Total Time Spent with Patient: Total time spent is greater than 50% in coordination of care (as documented) at patient's floor/unit and/or counseling patient: Coding [place] [address] IN/OBS CONSULT LVL 4,60M Patient Type Established Medical Decision Making Moderate Complexity Diagnoses Infection associated with internal left hip prosthesis, sequela T84.52XS Encounter type: sequela (1) Prosthetic joint infection of left hip Encounter type: sequela Qualified Code(s): T84.52XS - Infection and inflammatory reaction due to internal left hip prosthesis, sequela
[2025-02-15 11:55] LABS: Hematocrit (blood only) 26.1 % (42.0-52.0); Hemoglobin 8.1 g/dl (14.0-18.0); Immature Granulocytes # (auto) 0.05 K/uL (0.01-0.20); Immature Granulocytes % (auto) 0.8 %; Mean Corpuscular Hemoglobin 27.6 pg (25.0-34.0); Mean Corpuscular Volume 88.8 fL (80.0-100.0); Platelet Count 251 K/uL (130-400); RDW Standard Deviation 51.8 fL (36.4-46.3); Red Blood Count 2.94 M/uL (4.70-6.10); White Blood Count 6.59 K/ul (4.8-10.8)
[2025-02-15 12:20] LABS: INR 1.0 (0.9-1.1); Prothrombin Time 10.9 Seconds (9.0-12.0)
[2025-02-15 12:36] LABS: Hemoglobin A1C 6.0 % (4.5-5.6)
[2025-02-15 12:38] LABS: Alanine Aminotransferase 9.0 U/L (7-52); Albumin Globulin Ratio 1.0 (0.9-2); Alkaline Phosphatase 168.0 U/L (34-104); Anion Gap 7.0 (3-11); Bilirubin,Total 0.7 mg/dl (0.2-1.0); Blood Urea Nitrogen 31.0 mg/dl (6-23); Calcium 8.8 mg/dl (8.6-10.3); Carbon Dioxide 22.0 mmol/L (21-32); Chloride 106.0 mmol/L (98-107); Creatinine Clr Calc Pharmacy 90.3 ml/min; Globulin 3.4 gm/dl (2.5-4.0); Glucose 347.0 mg/dl (70-99(Fasting)); Magnesium 2.1 mg/dl (1.7-2.4); Potassium 4.0 mmol/L (3.5-5.1); Sodium 135.0 mmol/L (136-145); Total Protein 6.9 gm/dl (6.0-8.3)
--- NOTE | 2025-02-15 12:43 | Anesthesiology Consultation ---
Date of Service February 15, 2025 Assessment & Plan Chart Review Chart Review: Acceptable Risk for Surgery and Patient NOT seen in Pre Admission Testing Consults Requested none History Surgery Operation Date: 02/15/25 16:45 Proposed Procedures p Esophagogastroduodenoscopy Dennys - Ronald Noyola MD Height/Weight Height: 5 ft 11 in Weight: 127.573 kg Allergies Allergy/AdvReac Type Severity Reaction Status Date / Time DEIDRE Inhibitors AdvReac Unknown Cough Verified 02/14/25 16:52 Medications Home Medications Medication Instructions Recorded Confirmed Last Taken clopidogrel 75 mg tablet (Plavix) 75 mg PO QAM 02/04/18 02/14/25 07/28/24 finasteride 5 mg tablet 5 mg PO QPM 02/04/18 02/14/25 08/03/24 folic acid 1 mg tablet 1 mg PO QAM 02/04/18 02/14/25 08/03/24 levothyroxine 125 mcg tablet 125 mcg PO DAILYBB 02/04/18 02/14/25 08/04/24 04:30 tamsulosin 0.4 mg capsule (Flomax) 0.4 mg PO HS 02/04/18 02/14/25 08/03/24 20:00 losartan 50 mg tablet 50 mg PO QAM 05/13/18 02/14/25 08/03/24 atorvastatin 40 mg tablet 40 mg PO QAM 04/14/20 02/14/25 08/04/24 04:30 metoprolol succinate 25 mg 25 mg PO AMHS 04/14/20 02/14/25 08/04/24 04:30 tablet,extended release 24 hr amlodipine 5 mg tablet 5 mg PO QAM 07/12/20 02/14/25 08/04/24 04:30 insulin aspart U-100 100 unit/mL 0 unit subcut CONTINOUS 07/12/20 02/14/25 08/04/24 04:30 subcutaneous solution 10 units gabapentin 300 mg capsule 300 mg PO BID 03/13/21 02/14/25 08/03/24 20:00 nitroglycerin 0.4 mg sublingual 0.4 mg sublingual DIRECTED PRN 03/20/23 02/14/25 Unknown tablet Chest Pain venlafaxine 150 mg 150 mg PO QAM 03/20/23 02/14/25 08/04/24 04:30 capsule,extended release 24 hr mv-mn-folic 200 mcg-vit K 15 1 cap PO DAILY 04/12/24 02/14/25 07/21/24 mcg-lutein 5 mg-zeaxanthin 1 mg capsule (PreserVision AREDS 2 Plus Multivit) aspirin 81 mg tablet,delayed 81 mg PO BID #0 tabs 08/04/24 02/14/25 08/04/24 04:30 release potassium chloride 20 mEq 20 meq PO AMHS 09/13/24 02/14/25 Unknown tablet,extended release(part/cryst) L.acidop,casei,lactis,rham-B.lact,mily 1 cap PO DAILY #14 caps 09/15/24 02/14/25 Unknown 625 mg (10 billion cell) capsule (Advanced Probiotic) thiamine HCl (vitamin B1) 100 mg 100 mg PO QAM #30 tabs 09/15/24 02/14/25 Unknown tablet cyclosporine 0.05 % eye drops in a 1 drp OPB Q12H 02/14/25 02/14/25 Unknown dropperette (Restasis) furosemide 40 mg tablet 40 mg PO BID 02/14/25 02/14/25 Unknown pantoprazole 40 mg tablet,delayed 40 mg PO BID 02/14/25 02/14/25 Unknown release Active Medications Generic Name Dose Route Start Last Admin Trade Name Daisy PRN Reason Stop Dose Admin Amlodipine Besylate 5 mg 02/15/25 09:00 02/15/25 09:12 Amlodipine Besylate 5 Mg Tab PO 03/17/25 08:59 5 mg QAM YUNIOR Administration Atorvastatin Calcium 40 mg 02/15/25 09:00 02/15/25 09:11 Atorvastatin 40 Mg Tab PO 03/17/25 08:59 40 mg QAM YUNIOR Administration Finasteride 5 mg 02/14/25 21:00 02/14/25 21:27 Finasteride 5 Mg Tab PO 03/16/25 20:59 5 mg QPM YUNIOR Administration Folic Acid 1 mg 02/15/25 09:00 02/15/25 09:12 Folic Acid 1 Mg Tab PO 03/17/25 08:59 1 mg QAM YUNIOR Administration Furosemide 40 mg 02/15/25 08:00 02/15/25 09:12 Furosemide 40 Mg Tab PO 03/17/25 07:59 40 mg BID@0800,1200 YUNIOR Administration Gabapentin 300 mg 02/14/25 21:00 02/15/25 09:12 Gabapentin 300 Mg Cap PO 03/16/25 20:59 300 mg BID YUNIOR Administration Pantoprazole Sodium 40 mg/ 100 mls @ 20 mls/hr 02/14/25 17:15 02/15/25 07:43 Dextrose IV 03/16/25 17:14 8 mg/hr Q5H YUNIOR 20 mls/hr Administration 8 MG/HR Vancomycin HCl 1,000 mg in 270 mls @ 200 mls/hr 02/14/25 22:00 02/15/25 11:09 Vancomycin Hcl / Nss IV 02/28/25 21:59 200 mls/hr Q12H YUNIOR Administration Insulin Aspart 0 units 02/15/25 00:00 02/15/25 12:12 Insulin Aspart Per Unit Charge SC 03/17/25 00:00 25 units Q6 YUNIOR Administration Lactobacillus Acidophilus 625 mg 02/15/25 09:00 02/15/25 09:11 Advanced Probiotic 625 Mg Capsule PO 03/17/25 08:59 625 mg DAILY YUNIOR Administration Levothyroxine Sodium 125 mcg 02/15/25 06:30 02/15/25 06:44 Levothyroxine Sodium 125 Mcg Tablet PO 03/17/25 06:29 125 mcg DAILYBB YUNIOR Administration Losartan Potassium 50 mg 02/15/25 09:00 02/15/25 09:11 Losartan Potassium 50 Mg Tab PO 03/17/25 08:59 50 mg QAM YUNIOR Administration Metoprolol Succinate 25 mg 02/14/25 21:00 02/15/25 09:11 Metoprolol Succ 25mg Ext Rel Tab PO 03/16/25 20:59 25 mg AMHS YUNIOR Administration Multivitamins/Minerals 1 tab 02/15/25 09:00 02/15/25 09:11 Cerovite Adv Formula Tab PO 03/17/25 08:59 1 tab DAILY YUNIOR Administration Potassium Chloride 20 meq 02/14/25 21:00 02/15/25 09:13 Potassium Chloride Crtab 20 Meq Tabcr PO 03/16/25 20:59 20 meq BID YUNIOR Administration Rifampin 600 mg 02/14/25 17:15 02/15/25 09:10 Rifampin 300 Mg Capsule PO 03/16/25 17:14 600 mg QAM YUNIOR Administration Tamsulosin HCl 0.4 mg 02/14/25 21:00 02/14/25 21:27 Tamsulosin Hcl 0.4 Mg Cap PO 03/16/25 20:59 0.4 mg HS YUNIOR Administration Thiamine HCl 100 mg 02/15/25 09:00 02/15/25 09:12 Thiamine Hcl 100 Mg Tab PO 03/17/25 08:59 100 mg QAM YUNIOR Administration Venlafaxine HCl 150 mg 02/15/25 09:00 02/15/25 09:11 Venlafaxine Hcl Xr 150 Mg Capxr PO 03/17/25 08:59 150 mg QAM YUNIOR Administration NPO Date Last Intake of Fluids: 02/15/25 Time Last Intake of Fluids: : Last Intake of Fluids Comment: sip with meds Date Last Intake of Solids: 02/13/25 Past Medical History Medical History Osteoarthritis of left hip MGUS (monoclonal gammopathy of unknown significance) Liver mass CKD (chronic kidney disease) stage 3, GFR 30-59 ml/min Type 1 diabetes mellitus insulin pump Hypothyroidism BPH (benign prostatic hyperplasia) CAD (coronary artery disease) s/p NSTEMI 2016-see cardiology 06/29/24 note for catheterization details- medical management advised Sleep apnea CPAP-compliant History of seizures unknown details regarding dx, last one approx 2017. Unknown details regarding etiology. Has neurologist but mainly focus is on neuropathy per pt. Denies seizure medication. History of myocardial infarction (~2015) History of atrial fibrillation Frequent falls hx, has improved. Balance disorder Neuropathy Chronic venous insufficiency hx sx. COPD (chronic obstructive pulmonary disease) controlled, stable per pt-lost to f/u with [facility] pulmonology per chart review/patient-denies inhaler use History of pneumonia (2021) History of COVID-19 (2019) Iron deficiency anemia monitors Aortic root enlargement Poor historian Depression Hyperlipidemia HTN (hypertension) controlled, stable per pt Cataracts, both eyes [place] & [place] (hard of hearing) left ear worse History of colon polyps Hiatal hernia Dyspnea on effort Chronic heart failure with preserved ejection fraction (HFpEF) EF 50-55% Alcohol abuse Hyponatremia GERD (gastroesophageal reflux disease) controlled, stable per pt Dyslipidemia Past Family History Family History Other Cancer Diabetes Hypertension Past Surgical History Surgical History History of ear surgery left History of eye surgery several right eye, hx injury. History of vascular surgery right for vericose veins. History of total right hip replacement History of endoscopy History of colonoscopy History of hand surgery BILAT HANDS-FINGER AMPUTATIONS History of cardiac cath 2020? [facility] History of tonsillectomy and adenoidectomy Social History Smoking Status: Former smoker Smoking cigarettes per day: 30 Do You Dip or Chew Tobacco: No Smoking End Date: Jan 05, 1995 Hx Alcohol Use: Yes Alcohol type: hard liquor alcohol intake frequency: 0-2 drinks per day Alcohol Intake Frequency Comment: Pt has not had alcohol since September Hx Substance Use: No substance use type: does not use Physical Exam Vital Signs Last Vital Signs Temp 37.1 C 02/15/25 12:33 Pulse 77 02/15/25 12:33 Resp 18 02/15/25 12:33 BP 109/59 L 02/15/25 11:05 Pulse Ox 95 02/15/25 12:33 O2 Del Method Room Air 02/15/25 12:33 Testing Laboratory Results 02/15/25 11:29 02/15/25 11:29 PT 10.9 Seconds (9.0-12.0) 02/15/25 11:29 INR 1.0 (0.9-1.1) 02/15/25 11:29 Hemoglobin A1c 6.0 % (4.5-5.6) H 02/15/25 11:29 Urine Color Yellow 02/14/25 Unknown Urine Appearance Clear (Clear) 02/14/25 Unknown Urine pH 5.5 (4.5-7.5) 02/14/25 Unknown Ur Specific [place] 1.026 (1.000-1.030) 02/14/25 Unknown Urine Protein Negative (Negative) 02/14/25 Unknown Urine Glucose (UA) Negative (Negative) 02/14/25 Unknown Urine Ketones 2+ (Negative) H 02/14/25 Unknown Urine Nitrite Negative (Negative) 02/14/25 Unknown Ur Leukocyte Esterase Negative (Negative) 02/14/25 Unknown Blood Type B Negative 02/14/25 11:55 Antibody Screen NEGATIVE 02/14/25 11:55 02/15/25 02/15/25 02/15/25 12:02 10:49 06:38 POC Glucose 364 H* 360 H* 373 H* 02/15/25 06:34 POC Glucose 388 H*
--- NOTE | 2025-02-15 13:48 | Pharmacy Report ---
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 -ID recommended: IV vancomycin (EOT 02/27/2025) plus po rifampin 600mg daily (EOT 04/21/2025), then will need to start po doxycycline 100mg BID AFTER completion of IV vancomycin for PJI prophylaxis Patient missed Vancomycin yesterday d/t syncopal event. Random level was drawn last night, 17.9mcg/ml. Vancomycin restarted last night. Note that outpatient [facility] ID pharmacist who was managing vancomycin has had patient on 1500mg IV Q24H with good levels for an extended period of time. Inpatient at [facility] calculating a therapeutic dose at 1000mg IV Q12H. Random level was ordered for today but top taper machine was unable to get blood at time needed d/t difficult stick. When trying later in the day, Vancomycin was already hung, so we will continue calculated dose and evaluate level tomorrow. Plan Vancomycin * Maintenance dose: 1000 mg IV every 12 hours * Regimen is predicted to achieve target AUC/LEWIS of 400-600 mg/L.hr * Random level ordered for: 02/16/25 Pharmacy will continue to follow and will adjust dose/frequency as necessary. Thank you. Pharmacy has transitioned to AUC monitoring for vancomycin. AUC/LEWIS is the preferred PK/PD target and is associated with decreased risk of nephrotoxicity compared to traditional trough targets.
--- NOTE | 2025-02-15 13:50 | Anesthesiology Progress Note ---
Date of Service February 15, 2025 Anesthesia Post Procedure Vital Signs Vital Signs: Temp Pulse Pulse Pulse Resp BP BP 02/15/25 12:33 37.1 C 77 18 02/15/25 12:29 73 02/15/25 11:05 36.7 C 74 19 109/59 L 02/15/25 10:23 36.6 C 75 15 119/79 02/15/25 09:15 37.0 C 85 15 137/57 L 02/15/25 09:03 37.0 C 74 16 149/83 H 02/15/25 08:01 80 16 150/65 H 02/15/25 07:45 02/15/25 07:10 36.6 C 98 H 18 143/68 H 02/15/25 06:28 36.7 C 74 18 128/60 02/15/25 05:28 36.7 C 75 20 125/62 02/15/25 04:58 36.8 C 74 18 127/79 02/15/25 04:43 36.8 C 78 18 125/57 L 02/15/25 04:27 36.7 C 73 16 135/51 L 02/15/25 03:41 36.6 C 76 20 127/69 02/15/25 02:15 81 21 02/14/25 22:46 36.8 C 86 16 151/77 H 02/14/25 22:31 76 21 02/14/25 22:28 85 02/14/25 22:21 36.9 C 87 16 152/74 H 02/14/25 21:21 36.9 C 95 H 18 127/67 02/14/25 20:52 37.3 C 92 H 18 145/83 H 02/14/25 20:51 37.3 C 92 H 18 145/83 H 02/14/25 20:51 37.3 C 92 H 18 145/83 H 02/14/25 20:50 37.3 C 92 H 18 145/83 H 02/14/25 20:38 37.6 C H 92 H 18 140/45 L 02/14/25 20:36 37.6 C H 93 H 18 140/45 L 02/14/25 20:20 36.7 C 90 18 152/75 H 02/14/25 20:17 36.7 C 91 H 18 147/62 H 02/14/25 20:08 92 H 09/10/25 20:00 36.7 C 91 H 18 147/62 H 02/14/25 18:39 37.2 C 90 18 168/77 H 02/14/25 18:09 37.1 C 88 18 162/61 H 02/14/25 17:54 36.8 C 90 18 136/60 02/14/25 17:35 36.8 C 85 18 156/75 H 02/14/25 17:06 92 H 02/14/25 17:00 89 18 145/74 H 02/14/25 14:51 87 18 168/91 H 02/14/25 14:00 86 18 158/94 H Pulse Ox O2 Del Method 02/15/25 12:33 95 Room Air 02/15/25 12:29 02/15/25 11:05 95 02/15/25 10:23 98 Room Air 02/15/25 09:15 99 Room Air 02/15/25 09:03 100 02/15/25 08:01 99 CPAP 02/15/25 07:45 Room Air 02/15/25 07:10 98 CPAP 02/15/25 06:28 97 02/15/25 05:28 96 02/15/25 04:58 97 02/15/25 04:43 96 02/15/25 04:27 99 02/15/25 03:41 99 Room Air, BiPAP 02/15/25 02:15 96 02/14/25 22:46 97 02/14/25 22:31 100 02/14/25 22:28 02/14/25 22:21 97 02/14/25 21:21 98 02/14/25 20:52 96 02/14/25 20:51 96 02/14/25 20:51 96 02/14/25 20:50 96 02/14/25 20:38 97 02/14/25 20:36 97 02/14/25 20:20 97 02/14/25 20:17 95 02/14/25 20:08 02/14/25 20:00 95 Room Air 02/14/25 18:39 96 02/14/25 18:09 94 02/14/25 17:54 94 02/14/25 17:35 95 02/14/25 17:06 02/14/25 17:00 96 Room Air 02/14/25 14:51 95 Room Air 02/14/25 14:00 96 Room Air Transfer of Care Handoff Completed per policy Notes Mental Status: alert / awake / arousable Patient Amnestic to Procedure: Yes Nausea / Vomiting: adequately controlled Pain: adequately controlled Airway Patency, RR, SpO2: stable & adequate BP & HR: stable & adequate Hydration State: stable & adequate Anesthetic Complications: no major complications apparent and Pt Satisfied with anesthetic care
--- NOTE | 2025-02-15 13:55 | Pharmacy Report ---
Pharmacy Glycemic Short Note 2 - Date of Service February 15, 2025 - Glycemic Short BSG Results (Last 24 hours): 02/14/25 02/15/25 02/15/25 20:18 00:18 00:22 Glucose POC Glucose 195 H 322 H* 290 H 02/15/25 02/15/25 02/15/25 06:34 06:38 10:49 Glucose POC Glucose 388 H* 373 H* 360 H* 02/15/25 02/15/25 11:29 12:02 Glucose 347 H* POC Glucose 364 H* OUTPATIENT ANTIDIABETIC REGIMEN: * Insulin pump, unknown settings, CDE Consulted regarding getting patient a new pump * A1c 6% 02/15/25 (down from 7.1% 09/14/24) ASSESSMENT: * 69 yo M, type 1 DM, on long term care pharmacist IV antibiotics for infected hardware of prosthetic hip joint, on IV Protonix for suspected GI bleed, from [facility] after sustaining a syncopal episode. * Insulin pump was removed and patient has been hyperglycemic since admission. A1c suggestive of possible hypoglycemia. * Patient received 20 units basal and 10 units NovoLog last night, fasting BSG = 388mg/dl, and remained in the 300s despite 55 units of Lantus and 65 units of NovoLog. NPO for EGD today, now starting lunch after procedure, BSG down to 255mg/dl. PLAN FOR INPATIENT GLYCEMIC CONTROL: * Hold outpatient pump * Basal insulin * Lantus 55 units SQ today, 20 units HS for BSG > 200mg/dl - further dosing tomorrow * Bolus insulin * NovoLog per scale ACHS or Q6hrs while NPO * Goal Range: Low 110 mg/dL - High 140 mg/dL * Correction Factor: 9 mg/dL/unit * Nutritional / Prandial insulin per carb ratio of 1 unit per 3 grams CHO consumed
--- NOTE | 2025-02-15 14:01 | GI REPORT ---
[facility] Patient: ANNMARIE MURDOCK : 1955 Sex at : Male Age: 69 Years Procedure: Upper GI endoscopy Date: 02/15/2025 Attending Physician: Ronald Noyola MD Referring MD: Referred Self; Aristeo Wise Md Indications: - Melena - Acute post hemorrhagic anemia Medications: - Monitored Anesthesia Care Complications: - No immediate complications. Estimated Blood Loss: - Estimated blood loss: None. Procedure: - Prior to the procedure, a History and Physical was performed, and patient medications and allergies were reviewed. The patient's tolerance of previous anesthesia was also reviewed. The risks and benefits of the procedure and the sedation options and risks were discussed with the patient. All questions were answered, and informed consent was obtained. Prior Anticoagulants: The patient has taken no anticoagulant or antiplatelet agents. ASA Grade Assessment: IV - A patient with severe systemic disease that is a constant threat to life. After reviewing the risks and benefits, the patient was deemed in satisfactory condition to undergo the procedure. - The egd scope was introduced through the mouth and advanced to the third part of the duodenum. - The upper GI endoscopy was accomplished without difficulty. - The patient tolerated the procedure well. Findings: - A large hiatal hernia was present. - Six non-bleeding superficial gastric ulcers with no stigmata of bleeding were found in the gastric antrum. The largest lesion was 2 mm in largest dimension. Biopsies were taken with a cold forceps for histology. - The examined duodenum was normal. - Moderate inflammation characterized by erythema and erosions was found in the gastric antrum. Biopsies were taken with a cold forceps for histology. - Four non-bleeding cratered and linear gastric ulcers with a visible vessel were found in the gastric body and in the gastric fundus. The largest lesion was 8 mm in largest dimension. Coagulation for hemostasis using argon plasma was successful. Impression: - Large hiatal hernia. - Non-bleeding gastric ulcers with no stigmata of bleeding. Biopsied. - Normal examined duodenum. - Acute gastritis, characterized by erythema and erosions. Biopsied. - Non-bleeding gastric ulcers with a visible vessel. Treated with argon plasma coagulation (APC). Recommendation: - Discharge patient to home (ambulatory). - Resume previous diet. - Continue present medications. - Await pathology results. - Return to primary care physician as previously scheduled. - Patient has a contact number available for emergencies. The signs and symptoms of potential delayed complications were discussed with the patient. Return to normal activities tomorrow. Written discharge instructions were provided to the patient. - PPI twice daily IV full liquid diet today and can start soft solids tomorrow. Keep head of bed above 30 degrees. Await pathology. Bleeding is from gastric ulcers in the hernia sac, these are called Naveed's lesions. 2 of the ulcers had a pigmented material and a visible vessel and they were cauterized completely with APC Procedure Code(s): - 41390-31, Esophagogastroduodenoscopy, flexible, transoral; with control of bleeding, any method - 97514, Esophagogastroduodenoscopy, flexible, transoral; with biopsy, single or multiple Diagnosis Code(s): - K92.1, Melena (includes Hematochezia) - D62, Acute posthemorrhagic anemia - K44.9, Diaphragmatic hernia without obstruction or gangrene - K25.9, Gastric ulcer, unspecified as acute or chronic, without hemorrhage or perforation - K25.4, Chronic or unspecified gastric ulcer with hemorrhage CPT(R) - 2023 copyright [employer]. All Rights Reserved. The CPT codes, CCI edits and ICD codes generated are intended as suggestions and were generated based on input data. These codes are preliminary and upon medical insurance coder review may be revised to meet current compliance and payer requirements. The provider is responsible for the final determination of appropriate codes, and modifiers. Ronald Noyola MD This document has been electronically signed. Note Initiated:02/15/2025 Note Completed:02/15/2025 1:59 PM [email or web address]\Provation\Results\LIVE\[id number]
[2025-02-15] MEDS: LIDOCAINE 2% 2 ML VIAL/AMP(20MG/ML) INFIL ONE (14:43)
[2025-02-15] MEDS: PROPOFOL IV EMULSION 10 MG/ML 20 ML VIAL IV ONE ×2 (14:43)
[2025-02-15 19:59] LABS: Hematocrit (blood only) 26.9 % (42.0-52.0); Hemoglobin 8.4 g/dl (14.0-18.0)
[2025-02-15] MEDS: LANTUS PER UNIT CHARGE SC SCH (21:42)
[2025-02-15] MEDS ORDERED: Nursing to Pharmacy Communication SCH (23:45)
[2025-02-16 05:21] LABS: Hematocrit (blood only) 24.1 % (42.0-52.0); Hemoglobin 7.4 g/dl (14.0-18.0); Mean Corpuscular Hemoglobin 27.3 pg (25.0-34.0); Mean Corpuscular Volume 88.9 fL (80.0-100.0); Platelet Count 231 K/uL (130-400); RDW Standard Deviation 51.8 fL (36.4-46.3); Red Blood Count 2.71 M/uL (4.70-6.10); White Blood Count 7.54 K/ul (4.8-10.8)
[2025-02-16 05:38] LABS: Anion Gap 7.0 (3-11); Blood Urea Nitrogen 24.0 mg/dl (6-23); Calcium 8.3 mg/dl (8.6-10.3); Carbon Dioxide 22.0 mmol/L (21-32); Chloride 106.0 mmol/L (98-107); Creatinine Clr Calc Pharmacy 88.7 ml/min; Glucose 158.0 mg/dl (70-99(Fasting)); Magnesium 1.9 mg/dl (1.7-2.4); Potassium 3.7 mmol/L (3.5-5.1); Sodium 135.0 mmol/L (136-145)
[2025-02-16] MEDS ORDERED: SODIUM CHLORIDE 0.9% 100 ML IV PRN (07:36)
[2025-02-16] MEDS: LANTUS PER UNIT CHARGE SC SCH (08:00)
--- NOTE | 2025-02-16 09:25 | Gastroenterology Progress Note ---
Date of Service February 16, 2025 Assessment & Plan (1) Acute on chronic anemia: Plan: 69 year old male w/ history of T1DM, CKD2, hypothyroidism, HLD, HTN, CAD, NSTEMI in setting of DKA s/p cardiac catheterization in 2016, PAF in setting of alcohol withdrawal, chronic HFpEF, aortic root and ascending aorta enlargement, COPD, chronic alcohol abuse, CHANTELL on CPAP, seizure disorder, venous insufficiency, prior osteomyelitis s/p amputations of fingers, history of orthostatic hypotension, GERD with esophagitis, morbid obesity, BPH with LUTS, MGUS, s/p left hip replacement in September 2024 complicated by infections w/ revisions in January admitted through the ED from [facility] following a syncopal episode - GI asked to evaluate for melena, acute on chronic anemia w/ 5.7 --> 3 units --> 6.4. Chest CTA w/moderate to large hiatal hernia with partially intra thoracic stomach, EGD/Colonoscopy unremarkable. EGD w/ large HH, non-bleeding gastric ulcers w/ VV treated w/ APC, gastritis. Continue IV PPI BID today. Then convert to Pantoprazole 40 mg twice daily. Soft diet as tolerated. Trend H&H. Transfuse PRN per primary. Monitor and document GI output. GERD dietary and lifestyle changes discussed. I spent a total of 40 minutes on the date of service in review of patient's record, and previously obtained information in person and appropriate medical visit, discussion and education of plan, with patient and/or caregiver, placing orders for tests/referral/procedures as medically necessary and documentation of pertinent clinical information in patient's medical records for their visit today. Admission and Anticipated Discharge Date Admission Date: February 14, 2025 Supervising Physician Co-Signing Physician Notes I personally saw and examined the patient. I have reviewed the chart and agree with the documentation provided by the WINDOW TRIMMER including discussion about the assessment, treatment and plan. Briefly, EGD w/ large HH, non-bleeding gastric ulcers w/ VV treated w/ APC, gastritis. Blood is a great cathartic and he has not been bleeding since he has been here. He had a dark stool which I think is his old stuff coming out he did have multiple ulcers in his stomach a couple with a visible vessel. All of these were treated with PPI twice daily and he can be on a full liquid diet we will just watch him supportive care for now Subjective Offers no GI concerns. Hungry. Tolerating diet. No abd pain. No nausea/vomiting. HGB 7.4. No further BMs since admission. EGD 2024: Large hiatal hernia. - Non-bleeding gastric ulcers with no stigmata of bleeding. Biopsied. - Normal examined duodenum. - Acute gastritis, characterized by erythema and erosions. Biopsied. - Non-bleeding gastric ulcers with a visible vessel. Treated with argon plasma coagulation (APC). Review of Systems Review of Systems: All other findings negative except as noted in HPI. Physical Exam Gastrointestinal (Abdomen): normal bowel sounds, soft, nontender, no hepatosplenomegaly Results & Data Results & Data Vital Signs (Past 12 Hours) Vital Signs Temp Pulse Pulse Pulse Resp BP Pulse Ox 02/16/25 08:04 97.5 F L 70 17 142/80 H 98 02/16/25 03:00 98.4 F 61 16 115/65 02/15/25 22:00 98.6 F 66 18 126/80 98 02/15/25 21:58 66 O2 Del Method 02/16/25 08:04 CPAP 02/16/25 03:00 Room Air, CPAP 02/15/25 22:00 Room Air, CPAP 02/15/25 21:58 Laboratory Results 02/16/25 02/16/25 02/15/25 Range/Units 07:23 04:50 20:51 WBC 7.54 (4.8-10.8) K/ul RBC 2.71 L (4.70-6.10) M/uL Hgb 7.4 L (14.0-18.0) g/dl Hct 24.1 L (42.0-52.0) % MCV 88.9 (80.0-100.0) fL MCH 27.3 (25.0-34.0) pg MCHC 30.7 L (32.0-36.0) g/dL RDW Std Deviation 51.8 H (36.4-46.3) fL RDW Coeff of Juan Manuel 16.3 H (11.5-14.5) % Plt Count 231 (130-400) K/uL MPV 10.2 (9.4-12.4) fL Immature Gran % (Auto) % Neut % (Auto) % Lymph % (Auto) % Stephens % (Auto) % Eos % (Auto) % Baso % (Auto) % Neut # (Auto) (1.40-6.50) K/uL Lymph # (Auto) (1.20-3.40) K/uL Stephens # (Auto) (0.11-0.59) K/uL Eos # (Auto) (0.00-0.50) K/uL Baso # (Auto) (0.00-0.20) K/uL Immature Gran # (Auto) (0.01-0.20) K/uL PT (9.0-12.0) Seconds INR (0.9-1.1) Sodium 135 L (136-145) mmol/L Potassium 3.7 (3.5-5.1) mmol/L Chloride 106 (98-107) mmol/L Carbon Dioxide 22 (21-32) mmol/L Anion Gap 7 (3-11) BUN 24 H (6-23) mg/dl Creatinine 1.10 (0.6-1.4) mg/dl Est Cr Clr Drug Dosing 88.7 ml/min eGFR 73.58 BUN/Creatinine Ratio 21.8 H (10-20) Glucose 158 H (70-99(Fasting)) mg/dl POC Glucose 227 H 110 H (70-99) mg/dl Estimat Average Glucose mg/dl Hemoglobin A1c (4.5-5.6) % Calcium 8.3 L (8.6-10.3) mg/dl Phosphorus 4.1 (2.5-4.9) mg/dl Magnesium 1.9 (1.7-2.4) mg/dl Total Bilirubin (0.2-1.0) mg/dl AST (13-39) U/L ALT (7-52) U/L Alkaline Phosphatase (34-104) U/L Total Protein (6.0-8.3) gm/dl Albumin (3.4-5.0) gm/dl Globulin (2.5-4.0) gm/dl Albumin/Globulin Ratio (0.9-2) Random Vancomycin 23.5 H (10-20) mcg/ml Blood Type Antibody Screen Crossmatch 02/15/25 02/15/25 02/15/25 Range/Units 19:16 15:13 12:02 WBC (4.8-10.8) K/ul RBC (4.70-6.10) M/uL Hgb 8.4 L (14.0-18.0) g/dl Hct 26.9 L (42.0-52.0) % MCV (80.0-100.0) fL MCH (25.0-34.0) pg MCHC (32.0-36.0) g/dL RDW Std Deviation (36.4-46.3) fL RDW Coeff of Juan Manuel (11.5-14.5) % Plt Count (130-400) K/uL MPV (9.4-12.4) fL Immature Gran % (Auto) % Neut % (Auto) % Lymph % (Auto) % Stephens % (Auto) % Eos % (Auto) % Baso % (Auto) % Neut # (Auto) (1.40-6.50) K/uL Lymph # (Auto) (1.20-3.40) K/uL Stephens # (Auto) (0.11-0.59) K/uL Eos # (Auto) (0.00-0.50) K/uL Baso # (Auto) (0.00-0.20) K/uL Immature Gran # (Auto) (0.01-0.20) K/uL PT (9.0-12.0) Seconds INR (0.9-1.1) Sodium (136-145) mmol/L Potassium (3.5-5.1) mmol/L Chloride (98-107) mmol/L Carbon Dioxide (21-32) mmol/L Anion Gap (3-11) BUN (6-23) mg/dl Creatinine (0.6-1.4) mg/dl Est Cr Clr Drug Dosing ml/min eGFR BUN/Creatinine Ratio (10-20) Glucose (70-99(Fasting)) mg/dl POC Glucose 255 H 364 H* (70-99) mg/dl Estimat Average Glucose mg/dl Hemoglobin A1c (4.5-5.6) % Calcium (8.6-10.3) mg/dl Phosphorus (2.5-4.9) mg/dl Magnesium (1.7-2.4) mg/dl Total Bilirubin (0.2-1.0) mg/dl AST (13-39) U/L ALT (7-52) U/L Alkaline Phosphatase (34-104) U/L Total Protein (6.0-8.3) gm/dl Albumin (3.4-5.0) gm/dl Globulin (2.5-4.0) gm/dl Albumin/Globulin Ratio (0.9-2) Random Vancomycin (10-20) mcg/ml Blood Type Antibody Screen Crossmatch 02/15/25 02/15/25 02/14/25 Range/Units 11:29 10:49 11:55 WBC 6.59 (4.8-10.8) K/ul RBC 2.94 L (4.70-6.10) M/uL Hgb 8.1 L (14.0-18.0) g/dl Hct 26.1 L (42.0-52.0) % MCV 88.8 (80.0-100.0) fL MCH 27.6 (25.0-34.0) pg MCHC 31.0 L (32.0-36.0) g/dL RDW Std Deviation 51.8 H (36.4-46.3) fL RDW Coeff of Juan Manuel 16.1 H (11.5-14.5) % Plt Count 251 (130-400) K/uL MPV 10.4 (9.4-12.4) fL Immature Gran % (Auto) 0.8 % Neut % (Auto) 68.9 % Lymph % (Auto) 15.0 % Stephens % (Auto) 12.0 % Eos % (Auto) 2.1 % Baso % (Auto) 1.2 % Neut # (Auto) 4.54 (1.40-6.50) K/uL Lymph # (Auto) 0.99 L (1.20-3.40) K/uL Stephens # (Auto) 0.79 H (0.11-0.59) K/uL Eos # (Auto) 0.14 (0.00-0.50) K/uL Baso # (Auto) 0.08 (0.00-0.20) K/uL Immature Gran # (Auto) 0.05 (0.01-0.20) K/uL PT 10.9 (9.0-12.0) Seconds INR 1.0 (0.9-1.1) Sodium 135 L (136-145) mmol/L Potassium 4.0 (3.5-5.1) mmol/L Chloride 106 (98-107) mmol/L Carbon Dioxide 22 (21-32) mmol/L Anion Gap 7 (3-11) BUN 31 H D (6-23) mg/dl Creatinine 1.08 (0.6-1.4) mg/dl Est Cr Clr Drug Dosing 90.3 ml/min eGFR 75.21 BUN/Creatinine Ratio 28.7 H (10-20) Glucose 347 H* (70-99(Fasting)) mg/dl POC Glucose 360 H* (70-99) mg/dl Estimat Average Glucose 126 mg/dl Hemoglobin A1c 6.0 H (4.5-5.6) % Calcium 8.8 (8.6-10.3) mg/dl Phosphorus (2.5-4.9) mg/dl Magnesium 2.1 (1.7-2.4) mg/dl Total Bilirubin 0.7 (0.2-1.0) mg/dl AST 12 L (13-39) U/L ALT 9 (7-52) U/L Alkaline Phosphatase 168 H (34-104) U/L Total Protein 6.9 (6.0-8.3) gm/dl Albumin 3.5 (3.4-5.0) gm/dl Globulin 3.4 (2.5-4.0) gm/dl Albumin/Globulin Ratio 1.0 (0.9-2) Random Vancomycin (10-20) mcg/ml Blood Type B Negative Antibody Screen NEGATIVE Crossmatch See Detail PG Care Time/CCT Total # of Minutes Spent Total Time Spent with Patient: Total time spent is greater than 50% in coordination of care (as documented) at patient's floor/unit and/or counseling patient: Coding Level of Care Code 81731 SUB INP/OBS CARE 2/35MIN Diagnoses Acute on chronic anemia D64.9
--- NOTE | 2025-02-16 11:17 | Hospitalist Progress Note ---
Date of Service February 16, 2025 Assessment & Plan (1) Syncope: (2) Melena: (3) Acute on chronic anemia: (4) Prosthetic joint infection of left hip: Plan Per admitting provider w/ addendum: Patient is a medically complex 69-year-old male with past medical history significant for T1DM with DM peripheral angiopathy, CKD stage II, acquired hypothyroidism, HLD, HTN, CAD with history of NSTEMI in setting of DKA s/p cardiac catheterization in August 2015 demonstrating 50-60% serial mid RCA lesion with distal RPLB lesion thought to be culprit (distal lesion not amenable to revascularization) and 30% mid LAD lesion, history of PAF in setting of alcohol withdrawal with no known recurrence, chronic HFpEF, aortic root and ascending aorta enlargement, COPD, chronic alcohol abuse, CHANTELL on CPAP, seizure disorder, history of venous insufficiency with multiple vascular interventions, history of osteomyelitis of the hands with multiple bilateral finger amputations, history of orthostatic hypotension, GERD with esophagitis, mass of left liver lobe, mo rbid obesity, BPH with LUTS, MGUS and hearing loss of left ear who presented to the ED via EMS from [facility] after sustaining a syncopal episode. Syncopal event ISO acute on chronic anemia, suspected upper GI bleed as outlined below TTE for completeness ordered on admission given his cardiac history Fall precautions Chest CTA: no PE, no acute intrathoracic findings, mild cardiomegaly, mod-large hiatal hernia Acute on chronic anemia Melena ISO suspected upper GI bleed Hgb 5.7 on admission 2U PRBCs ordered in ED, follow repeat H/H trend overnight Hold DAPT including ASA and Plavix Appreciate GI consult NPO at ID for possible EGD in AM IV Protonix bolus and drip started in ED 02/14 Received another unit (3rd) overnight for Hgb 6.4 - H&H was not rechecked afterwards, per RN pt is currently on 4th unit of blood S/p EGD Findings: - A large hiatal hernia was present. - Six non-bleeding superficial gastric ulcers with no stigmata of bleeding were found in the gastric antrum. The largest lesion was 2 mm in largest dimension. Biopsies were taken with a cold forceps for histology. - The examined duodenum was normal. - Moderate inflammation characterized by erythema and erosions was found in the gastric antrum. Biopsies were taken with a cold forceps for histology. - Four non-bleeding cratered and linear gastric ulcers with a visible vessel were found in the gastric body and in the gastric fundus. The largest lesion was 8 mm in largest dimension. Coagulation for hemostasis using argon plasma was successful. Impression: - Large hiatal hernia. - Non-bleeding gastric ulcers with no stigmata of bleeding. Biopsied. - Normal examined duodenum. - Acute gastritis, characterized by erythema and erosions. Biopsied. - Non-bleeding gastric ulcers with a visible vessel. Treated with argon plasma coagulation (APC). Recommendation: - - Await pathology results. - PPI twice daily IV full liquid diet today and can start soft solids tomorrow. Keep head of bed above 30 degrees. Await pathology. Bleeding is from gastric ulcers in the hernia sac, these are called Naveed's lesions. 2 of the ulcers had a pigmented material and a visible vessel and they were cauterized completely with APC Hgb on 02/15 evening 8.4, 912 AM hgb 74 - unit of pRBC ordered Will recheck H&H after blood transfusion, and cont. to monitor Pt reported dark stool this AM History of elective L hip arthroplasty in July 2024 Prosthetic joint infection of L hip Initial L hip arthroplasty c/b postop fall in September 2024 with resultant periprosthetic fx -S/p ORIF of the L femur performed by Dr. Carty at [facility] on 10/06/2024 Also had L hip wound dehiscence back in September 2024 and was admitted under our service -Completed 1mo course of Bactrim and doxycycline at this time d/t c/f superficial wound infection Then started to experience significant degree of L hip pain in late December 2024 -There was high clinical concern at this time for possible prosthetic joint infection -Admitted at [facility] 01/16/2025-01/19/2025 for L hip arthroplasty revision with placement of ABX spacer (surgery occurred on 01/16/25) -Intraop sustained 1L blood loss which resulted in significant postop ABLA requiring a total of 3U PRBCs to be given during that admission -Hardware cultures grew Staph epidermis -ID recommended: IV vancomycin (EOT 02/27/2025) plus po rifampin 600mg daily (EOT 04/21/2025), then will need to start po doxycycline 100mg BID AFTER completion of IV vancomycin for PJI prophylaxis Continue IV vancomycin and po rifampin as outlined above per previous ID recs -Pt missed full dose of IV vancomycin today 2/2 syncopal event so will check trough level and restart with appropriate dosage per pharm Continue daily probiotic while on above ABX ID follow-up appt with Dr. Roger on 03/20/2025 at [facility] L femur CT today noting an ununited fracture at the proximal shaft -Previous L hip XR from 01/16/2025 shows no fractures per chart review -? if this is new or expected postsurgical changes as his L hip XR today stated: "There is a partially healed fracture proximal shaft of the left femur with improved alignment compared to the prior exam. There is lucency around the distal aspect of the left hip prosthesis which could represent residual lucency from the fracture or hardware loosening. There is heterotopic ossification surrounding the proximal to mid shaft of the left femur. No new fracture or dislocation seen." -Appreciate ortho consult for further eval of this --> will consult [facility] as pt had initial L hip arthroplasty done by Dr. Mccann [facility] consulted - recommend to follow up w/ [facility] - per pt - he is to follow up in March (03/12/2025 w/ / Carloz - confirmed) Acquired hypothyroidism Continue levothyroxine History of alcohol use No alcoholic consumption since September 2024 per discussion with the patient Prior to that, patient was consuming 1 pint of bourbon and occasionally a "few beers"/day x >10yrs Continue folic acid and thiamine supplementation HTN Continue Norvasc and losartan with hold parameters HLD CAD with history of NSTEMI in setting of DKA in August 2015 Continue BB Holding DAPT for now - as outlined above Chronic HFpEF Appears euvolemic on exam Continue Lasix and monitor daily wts/I&Os K+ stable, continue po supplementation History of GERD with esophagitis Hold po PPI for now while on IV Protonix drip - as per above BPH with LUTS Continue Proscar and Flomax DM peripheral neuropathy Continue gabapentin Depression Continue venlafaxine DVT Prophylaxis: SCDs/TEDs only in light of above Disposition: PCU Admission and Anticipated Discharge Date Admission Date: February 14, 2025 Subjective Pt seen in follow up Presents with syncope - found to be anemic Also s/p recent hip surgery, currently on vanco and rifampin per ID Currently sitting up in chair in NAD, getting blood transfusion. Yesterday received 4 units), then Hgb above 8. This AM Hgb 7.4 - unit ordered Denies fever, chills, chest pain, shortness of breath Does report having very dark stool prior to admission. Then again, dark stool this AM. Seen by GI - s/p EGD yesterday, cont. PPI Seen by orthopedics - plan to follow up w/ [facility] Review of Systems Review of Systems: All systems reviewed & are unremarkable except as noted in Subjective Physical Exam Physical Exam: General - sitting up in chair without any acute distress Chestclear to auscultate bilaterally HeartS1-S2, regular Abdomen soft, nontender Extremities L thigh edema, scar healed, no erythema, or drainage, moves extremities CNSalert, awake oriented x 3, speech fluent, answers appropriately Results & Data Results & Data Vital Signs (Past 12 Hours) Vital Signs Temp Pulse Pulse Pulse Resp BP BP 02/16/25 10:50 34.4 C L 62 20 144/71 H 02/16/25 10:20 36.6 C 66 20 125/75 02/16/25 10:05 36.5 C 62 20 117/72 02/16/25 09:46 36.4 C L 66 20 148/82 H 02/16/25 08:04 36.4 C L 70 17 142/80 H 02/16/25 03:00 36.9 C 61 16 115/65 Pulse Ox O2 Del Method 02/16/25 10:50 91 02/16/25 10:20 95 02/16/25 10:05 97 02/16/25 09:46 95 02/16/25 08:04 98 CPAP 02/16/25 03:00 Room Air, CPAP Laboratory Results 02/16/25 02/16/25 02/15/25 Range/Units 07:23 04:50 20:51 WBC 7.54 (4.8-10.8) K/ul RBC 2.71 L (4.70-6.10) M/uL Hgb 7.4 L (14.0-18.0) g/dl Hct 24.1 L (42.0-52.0) % MCV 88.9 (80.0-100.0) fL MCH 27.3 (25.0-34.0) pg MCHC 30.7 L (32.0-36.0) g/dL RDW Std Deviation 51.8 H (36.4-46.3) fL RDW Coeff of Juan Manuel 16.3 H (11.5-14.5) % Plt Count 231 (130-400) K/uL MPV 10.2 (9.4-12.4) fL Immature Gran % (Auto) % Neut % (Auto) % Lymph % (Auto) % Cocke % (Auto) % Eos % (Auto) % Baso % (Auto) % Neut # (Auto) (1.40-6.50) K/uL Lymph # (Auto) (1.20-3.40) K/uL Cocke # (Auto) (0.11-0.59) K/uL Eos # (Auto) (0.00-0.50) K/uL Baso # (Auto) (0.00-0.20) K/uL Immature Gran # (Auto) (0.01-0.20) K/uL PT (9.0-12.0) Seconds INR (0.9-1.1) Sodium 135 L (136-145) mmol/L Potassium 3.7 (3.5-5.1) mmol/L Chloride 106 (98-107) mmol/L Carbon Dioxide 22 (21-32) mmol/L Anion Gap 7 (3-11) BUN 24 H (6-23) mg/dl Creatinine 1.10 (0.6-1.4) mg/dl Est Cr Clr Drug Dosing 88.7 ml/min eGFR 73.58 BUN/Creatinine Ratio 21.8 H (10-20) Glucose 158 H (70-99(Fasting)) mg/dl POC Glucose 227 H 110 H (70-99) mg/dl Estimat Average Glucose mg/dl Hemoglobin A1c (4.5-5.6) % Calcium 8.3 L (8.6-10.3) mg/dl Phosphorus 4.1 (2.5-4.9) mg/dl Magnesium 1.9 (1.7-2.4) mg/dl Total Bilirubin (0.2-1.0) mg/dl AST (13-39) U/L ALT (7-52) U/L Alkaline Phosphatase (34-104) U/L Total Protein (6.0-8.3) gm/dl Albumin (3.4-5.0) gm/dl Globulin (2.5-4.0) gm/dl Albumin/Globulin Ratio (0.9-2) Random Vancomycin 23.5 H (10-20) mcg/ml Blood Type Antibody Screen Crossmatch 02/15/25 02/15/25 02/15/25 Range/Units 19:16 15:13 12:02 WBC (4.8-10.8) K/ul RBC (4.70-6.10) M/uL Hgb 8.4 L (14.0-18.0) g/dl Hct 26.9 L (42.0-52.0) % MCV (80.0-100.0) fL MCH (25.0-34.0) pg MCHC (32.0-36.0) g/dL RDW Std Deviation (36.4-46.3) fL RDW Coeff of Juan Manuel (11.5-14.5) % Plt Count (130-400) K/uL MPV (9.4-12.4) fL Immature Gran % (Auto) % Neut % (Auto) % Lymph % (Auto) % Cocke % (Auto) % Eos % (Auto) % Baso % (Auto) % Neut # (Auto) (1.40-6.50) K/uL Lymph # (Auto) (1.20-3.40) K/uL Cocke # (Auto) (0.11-0.59) K/uL Eos # (Auto) (0.00-0.50) K/uL Baso # (Auto) (0.00-0.20) K/uL Immature Gran # (Auto) (0.01-0.20) K/uL PT (9.0-12.0) Seconds INR (0.9-1.1) Sodium (136-145) mmol/L Potassium (3.5-5.1) mmol/L Chloride (98-107) mmol/L Carbon Dioxide (21-32) mmol/L Anion Gap (3-11) BUN (6-23) mg/dl Creatinine (0.6-1.4) mg/dl Est Cr Clr Drug Dosing ml/min eGFR BUN/Creatinine Ratio (10-20) Glucose (70-99(Fasting)) mg/dl POC Glucose 255 H 364 H* (70-99) mg/dl Estimat Average Glucose mg/dl Hemoglobin A1c (4.5-5.6) % Calcium (8.6-10.3) mg/dl Phosphorus (2.5-4.9) mg/dl Magnesium (1.7-2.4) mg/dl Total Bilirubin (0.2-1.0) mg/dl AST (13-39) U/L ALT (7-52) U/L Alkaline Phosphatase (34-104) U/L Total Protein (6.0-8.3) gm/dl Albumin (3.4-5.0) gm/dl Globulin (2.5-4.0) gm/dl Albumin/Globulin Ratio (0.9-2) Random Vancomycin (10-20) mcg/ml Blood Type Antibody Screen Crossmatch 02/15/25 02/14/25 Range/Units 11:29 11:55 WBC 6.59 (4.8-10.8) K/ul RBC 2.94 L (4.70-6.10) M/uL Hgb 8.1 L (14.0-18.0) g/dl Hct 26.1 L (42.0-52.0) % MCV 88.8 (80.0-100.0) fL MCH 27.6 (25.0-34.0) pg MCHC 31.0 L (32.0-36.0) g/dL RDW Std Deviation 51.8 H (36.4-46.3) fL RDW Coeff of Juan Manuel 16.1 H (11.5-14.5) % Plt Count 251 (130-400) K/uL MPV 10.4 (9.4-12.4) fL Immature Gran % (Auto) 0.8 % Neut % (Auto) 68.9 % Lymph % (Auto) 15.0 % Cocke % (Auto) 12.0 % Eos % (Auto) 2.1 % Baso % (Auto) 1.2 % Neut # (Auto) 4.54 (1.40-6.50) K/uL Lymph # (Auto) 0.99 L (1.20-3.40) K/uL Cocke # (Auto) 0.79 H (0.11-0.59) K/uL Eos # (Auto) 0.14 (0.00-0.50) K/uL Baso # (Auto) 0.08 (0.00-0.20) K/uL Immature Gran # (Auto) 0.05 (0.01-0.20) K/uL PT 10.9 (9.0-12.0) Seconds INR 1.0 (0.9-1.1) Sodium 135 L (136-145) mmol/L Potassium 4.0 (3.5-5.1) mmol/L Chloride 106 (98-107) mmol/L Carbon Dioxide 22 (21-32) mmol/L Anion Gap 7 (3-11) BUN 31 H D (6-23) mg/dl Creatinine 1.08 (0.6-1.4) mg/dl Est Cr Clr Drug Dosing 90.3 ml/min eGFR 75.21 BUN/Creatinine Ratio 28.7 H (10-20) Glucose 347 H* (70-99(Fasting)) mg/dl POC Glucose (70-99) mg/dl Estimat Average Glucose 126 mg/dl Hemoglobin A1c 6.0 H (4.5-5.6) % Calcium 8.8 (8.6-10.3) mg/dl Phosphorus (2.5-4.9) mg/dl Magnesium 2.1 (1.7-2.4) mg/dl Total Bilirubin 0.7 (0.2-1.0) mg/dl AST 12 L (13-39) U/L ALT 9 (7-52) U/L Alkaline Phosphatase 168 H (34-104) U/L Total Protein 6.9 (6.0-8.3) gm/dl Albumin 3.5 (3.4-5.0) gm/dl Globulin 3.4 (2.5-4.0) gm/dl Albumin/Globulin Ratio 1.0 (0.9-2) Random Vancomycin (10-20) mcg/ml Blood Type B Negative Antibody Screen NEGATIVE Crossmatch See Detail Medications Administered Current Inpatient Medications Acetaminophen (Acetaminophen 325 Mg Tab) 650 mg PO Q4H PRN PRN Reason: Pain or Fever Stop: 03/16/25 17:21 Amlodipine Besylate (Amlodipine Besylate 5 Mg Tab) [facility] Stop: 03/17/25 08:59 Last Admin: 02/16/25 08:02 Dose: 5 mg Artificial Tears (Artificial Tears) 1 drops OP QID PRN PRN Reason: Dryness Stop: 03/16/25 19:31 Atorvastatin Calcium (Atorvastatin 40 Mg Tab) 40 mg PO QAM YUNIOR Stop: 03/17/25 08:59 Last Admin: 02/16/25 08:02 Dose: 40 mg Dextrose (Dextrose 50% 50 Ml Syringe) 25 - 50 ml IV UD PRN; Protocol PRN Reason: Hypoglycemia Protocol Stop: 03/16/25 16:57 Finasteride (Finasteride 5 Mg Tab) 5 mg PO QPM YUNIOR Stop: 03/16/25 20:59 Last Admin: 02/15/25 20:56 Dose: 5 mg Folic Acid (Folic Acid 1 Mg Tab) 1 mg PO QAM YUNIOR Stop: 03/17/25 08:59 Last Admin: 02/16/25 08:01 Dose: 1 mg Furosemide (Furosemide 40 Mg Tab) 40 mg PO BID@0800,1200 YUNIOR Stop: 03/17/25 07:59 Last Admin: 02/16/25 08:01 Dose: 40 mg Gabapentin (Gabapentin 300 Mg Cap) 300 mg PO BID YUNIOR Stop: 03/16/25 20:59 Last Admin: 02/16/25 08:02 Dose: 300 mg Glucagon (Glucagon For Inj 1 Mg Vial) 1 mg SQ UD PRN; Protocol PRN Reason: Hypoglycemia Protocol Stop: 03/16/25 16:57 Glucose (Glucose 40% Gel 15 Gm Tube) 15 - 30 gm PO UD PRN; Protocol PRN Reason: Hypoglycemia Protocol Stop: 03/16/25 16:57 Glucose (Glucose 10 Tab/Tube) 4 - 8 tab PO UD PRN; Protocol PRN Reason: Hypoglycemia Protocol Stop: 03/16/25 16:57 Heparin Sodium (Beef Lung) (Heparin 10 Unit/Ml 5 Ml Flush) 5 ml FLUSH PRN PRN PRN Reason: Flush Stop: 03/17/25 04:37 Pantoprazole Sodium 40 mg/ (Dextrose) 100 mls @ 20 mls/hr IV Q5H YUNIOR Stop: 03/16/25 17:14 Last Admin: 02/16/25 06:53 Dose: 8 mg/hr, 20 mls/hr Vancomycin HCl (Vancomycin Hcl / Nss) 1,000 mg in 270 mls @ 200 mls/hr IV Q12H YUNIOR Stop: 02/28/25 21:59 Last Admin: 02/16/25 09:58 Dose: 200 mls/hr Sodium Chloride (Nss) 100 mls @ 15 mls/hr IV .Q6H40M PRN PRN Reason: For Transfusion Duration Stop: 02/16/25 15:37 Insulin Aspart (Insulin Aspart Per Unit Charge) 0 units SC ACHS [facility]1983 Stop: 03/17/25 14:59 Last Admin: 02/16/25 08:00 Dose: 12 units Insulin Glargine (Lantus Per Unit Charge) 0 units SC HS [facility]; Protocol Stop: 03/17/25 20:59 Last Admin: 02/15/25 21:42 Dose: Not Given Insulin Glargine (Lantus Per Unit Charge) 45 units SC DAILY [facility] Stop: 03/18/25 08:59 Last Admin: 02/16/25 08:00 Dose: 45 units Lactobacillus Acidophilus (Advanced Probiotic 625 Mg Capsule) 625 mg PO DAILY [facility] Stop: 03/17/25 08:59 Last Admin: 02/16/25 08:01 Dose: 625 mg Levothyroxine Sodium (Levothyroxine Sodium 125 Mcg Tablet) 125 mcg PO DAILYBB [facility]1983 Stop: 03/17/25 06:29 Last Admin: 02/16/25 04:55 Dose: 125 mcg Losartan Potassium (Losartan Potassium 50 Mg Tab) 50 mg PO QAM [facility] Stop: 03/17/25 08:59 Last Admin: 02/16/25 08:01 Dose: 50 mg Magnesium Hydroxide (Magnesium Hydroxide Susp 30 Ml Udc) 30 ml PO Q12H PRN PRN Reason: Constipation Stop: 03/16/25 17:21 Metoprolol Succinate (Metoprolol Succ 25mg Ext Rel Tab) 25 mg PO AMHS [facility] Stop: 03/16/25 20:59 Last Admin: 02/16/25 08:02 Dose: 25 mg Miscellaneous (Carbohydrates For Hypoglycemia ) 15 - 30 gm PO UD PRN PRN Reason: Hypoglycemia Protocol Stop: 03/16/25 16:57 Miscellaneous Information (Pharmacy Glycemic Mgmt Consult) 1 each N/A UD PRN PRN Reason: Consult Stop: 03/16/25 16:57 Miscellaneous Information (Vancomycin Consult Active) 1 each N/A UD PRN PRN Reason: Consult Stop: 03/16/25 17:05 Multivitamins/Minerals (Cerovite Adv Formula Tab) 1 tab PO DAILY YUNIOR Stop: 03/17/25 08:59 Last Admin: 02/16/25 08:01 Dose: 1 tab Ondansetron HCl (Ondansetron Inj 2 Mg/Ml 2 Ml Vial) 4 mg IV Q6H PRN PRN Reason: Nausea Stop: 03/16/25 17:21 Polyethylene Glycol (Polyethylene (Miralax) 17 Gm Pack) 17 gm PO DAILY PRN PRN Reason: Constipation Stop: 03/16/25 17:21 Potassium Chloride (Potassium Chloride Crtab 20 Meq Tabcr) 20 meq PO BID YUNIOR Stop: 03/16/25 20:59 Last Admin: 02/16/25 08:07 Dose: 20 meq Rifampin (Rifampin 300 Mg Capsule) 600 mg PO QAM YUNIOR Stop: 04/21/25 23:59 Last Admin: 02/16/25 08:02 Dose: 600 mg Tamsulosin HCl (Tamsulosin Hcl 0.4 Mg Cap) 0.4 mg PO HS YUNIOR Stop: 03/16/25 20:59 Last Admin: 02/15/25 20:57 Dose: 0.4 mg Thiamine HCl (Thiamine Hcl 100 Mg Tab) 100 mg PO QAM YUNIOR Stop: 03/17/25 08:59 Last Admin: 02/16/25 08:02 Dose: 100 mg Venlafaxine HCl (Venlafaxine Hcl Xr 150 Mg Capxr) 150 mg PO QAM YUNIOR Stop: 03/17/25 08:59 Last Admin: 02/16/25 08:01 Dose: 150 mg (1) Syncope Syncope type: unspecified Qualified Code(s): R55 - Syncope and collapse (4) Prosthetic joint infection of left hip Encounter type: sequela Qualified Code(s): T84.52XS - Infection and inflammatory reaction due to internal left hip prosthesis, sequela
--- NOTE | 2025-02-16 12:16 | Pharmacy Report ---
Pharmacy PK ABX Note - Date of Service February 16, 2025 - Assessment and Plan Assessment 02/16: Vancomycin level drawn this morning was 23.5mcg/mL (drawn 5 hours prior to the dose) which extrapolates to an AUC in the goal range. To continue current vancomycin regimen. 02/15: 69 year old M receiving IV Vancomycin for treatment of infected hardware with staph epidermis, s/p L Hip arthroplasty 07/2024. -ID recommended: IV vancomycin (EOT 02/27/2025) plus po rifampin 600mg daily (EOT 04/21/2025), then will need to start po doxycycline 100mg BID AFTER completion of IV vancomycin for PJI prophylaxis Patient missed Vancomycin yesterday d/t syncopal event. Random level was drawn last night, 17.9mcg/ml. Vancomycin restarted last night. Note that outpatient [facility] pharmacist who was managing vancomycin has had patient on 1500mg IV Q24H with good levels for an extended period of time. Inpatient at [facility] calculating a therapeutic dose at 1000mg IV Q12H. Random level was ordered for today but cartridge maker was unable to get blood at time needed d/t difficult stick. When trying later in the day, Vancomycin was already hung, so we will continue calculated dose and evaluate level tomorrow. Plan Vancomycin * Vancomycin level drawn today = 23.5mcg/mL which extrapolated to an AUC of 514. * Continue maintenance dose of: 1000 mg IV every 12 hours * Regimen is predicted to achieve target AUC/LEWIS of 400-600 mg/L.hr * Another vanco level will be ordered in the next few days or as clinically necessary. Pharmacy will continue to follow and will adjust dose/frequency as necessary. Thank you. Pharmacy has transitioned to AUC monitoring for vancomycin. AUC/LEWIS is the preferred PK/PD target and is associated with decreased risk of nephrotoxicity compared to traditional trough targets.
--- NOTE | 2025-02-16 14:12 | Pharmacy Report ---
Pharmacy Glycemic Short Note 2 - Date of Service February 16, 2025 - Glycemic Short BSG Results (Last 24 hours): 02/15/25 02/15/25 02/16/25 15:13 20:51 04:50 Glucose 158 H POC Glucose 255 H 110 H 02/16/25 02/16/25 07:23 11:26 Glucose POC Glucose 227 H 294 H OUTPATIENT ANTIDIABETIC REGIMEN: * Insulin pump, unknown settings, CDE Consulted regarding getting patient a new pump * A1c 6% 02/15/25 (down from 7.1% 09/14/24) ASSESSMENT: 02/16: * Damon received a total of 147 units of insulin yesterday (55 units were basal and 92 units were bolus). BSGs remained very elevated (>300mg/dL) through the first half of the day yesterday. Bolus insulin regimen adjusted to a more aggressive regimen and BSG finally normalized at HS. * Fasting BSG jac to 227mg/dL this morning. 45 units of Lantus SQ daily was ordered. BSG continue to rise at lunch, so bolus insulin parameters were tightened further and an additional 10 units of Lantus x 1 was ordered. Will continue Lantus scale (0 or 20 units depending on BSG) at HS. * Plan is to resume patient's home insulin pump tomorrow if possible. Tomorrow morning's dose of Lantus has been placed on hold in anticipation of this. If the pump isn't restarted, will resume basal/bolus regimen. 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 * Insulin pump was removed and patient has been hyperglycemic since admission. A1c suggestive of possible hypoglycemia. * Patient received 20 units basal and 10 units NovoLog last night, fasting BSG = 388mg/dl, and remained in the 300s despite 55 units of Lantus and 65 units of NovoLog. NPO for EGD today, now starting lunch after procedure, BSG down to 255mg/dl. PLAN FOR INPATIENT GLYCEMIC CONTROL: * Hold outpatient pump * Basal insulin * Lantus 45 units SQ today + 10 units SQ addition in afternoon + 20 units HS for BSG > 200mg/dl * Bolus insulin * NovoLog per scale ACHS or Q6hrs while NPO * Goal Range: Low 110 mg/dL - High 140 mg/dL * Correction Factor: 10 mg/dL/unit * Nutritional / Prandial insulin per carb ratio of 1 unit per 3 grams CHO consumed
[2025-02-16 14:22] LABS: Hematocrit (blood only) 28.4 % (42.0-52.0); Hemoglobin 8.9 g/dl (14.0-18.0)
[2025-02-16] MEDS: LANTUS PER UNIT CHARGE SQ ONE (15:20)
[2025-02-16 21:40] LABS: Hematocrit (blood only) 28.0 % (42.0-52.0); Hemoglobin 8.8 g/dl (14.0-18.0)
[2025-02-17] MEDS: CARBOHYDRATES FOR HYPOGLYCEMIA PO PRN (00:03)
[2025-02-17] MEDS: INSULIN ASPART PER UNIT CHARGE SC SCH (00:05)
[2025-02-17] MEDS ORDERED: INSULIN ASPART PER UNIT CHARGE SC SCH (04:00)
--- NOTE | 2025-02-17 05:57 | Electrocardiogram Report ---
Test Reason : Blood Pressure : */* mmHG Vent. Rate : 68 BPM Atrial Rate : 68 BPM P-R Int : 216 ms QRS Dur : 94 ms QT Int : 420 ms P-R-T Axes : 46 45 21 degrees QTcB Int : 446 ms Sinus rhythm with 1st degree A-V block Otherwise normal ECG When compared with ECG of 14-Feb-2025 10:47, Premature ventricular complexes are no longer Present T wave amplitude has increased in Lateral leads Confirmed by Angelo Ortiz ([id number]) on 02/17/2025 5:57:41 AM Referred By: REFERRED SELF Confirmed By: Angelo Ortiz
[2025-02-17 07:16] LABS: Hematocrit (blood only) 27.8 % (42.0-52.0); Hemoglobin 8.7 g/dl (14.0-18.0); Mean Corpuscular Hemoglobin 27.5 pg (25.0-34.0); Mean Corpuscular Volume 88.0 fL (80.0-100.0); Platelet Count 254 K/uL (130-400); RDW Standard Deviation 51.3 fL (36.4-46.3); Red Blood Count 3.16 M/uL (4.70-6.10); White Blood Count 6.74 K/ul (4.8-10.8)
[2025-02-17 07:39] LABS: Anion Gap 8.0 (3-11); Blood Urea Nitrogen 15.0 mg/dl (6-23); Calcium 8.6 mg/dl (8.6-10.3); Carbon Dioxide 24.0 mmol/L (21-32); Chloride 104.0 mmol/L (98-107); Creatinine Clr Calc Pharmacy 102.7 ml/min; Glucose 114.0 mg/dl (70-99(Fasting)); Magnesium 1.9 mg/dl (1.7-2.4); Potassium 4.0 mmol/L (3.5-5.1); Sodium 136.0 mmol/L (136-145)
--- NOTE | 2025-02-17 07:45 | Hospitalist Progress Note ---
Date of Service February 17, 2025 Assessment & Plan (1) Syncope: (2) Melena: (3) Acute on chronic anemia: (4) Prosthetic joint infection of left hip: Plan Per admitting provider w/ addendum: Patient is a medically complex 69-year-old male with past medical history significant for T1DM with DM peripheral angiopathy, CKD stage II, acquired hypothyroidism, HLD, HTN, CAD with history of NSTEMI in setting of DKA s/p cardiac catheterization in August 2015 demonstrating 50-60% serial mid RCA lesion with distal RPLB lesion thought to be culprit (distal lesion not amenable to revascularization) and 30% mid LAD lesion, history of PAF in setting of alcohol withdrawal with no known recurrence, chronic HFpEF, aortic root and ascending aorta enlargement, COPD, chronic alcohol abuse, CHANTELL on CPAP, seizure disorder, history of venous insufficiency with multiple vascular interventions, history of osteomyelitis of the hands with multiple bilateral finger amputations, history of orthostatic hypotension, GERD with esophagitis, mass of left liver lobe, mo rbid obesity, BPH with LUTS, MGUS and hearing loss of left ear who presented to the ED via EMS from [facility] after sustaining a syncopal episode. Syncopal event ISO acute on chronic anemia, suspected upper GI bleed as outlined below TTE for completeness ordered on admission given his cardiac history Fall precautions Chest CTA: no PE, no acute intrathoracic findings, mild cardiomegaly, mod-large hiatal hernia Acute on chronic anemia Melena ISO suspected upper GI bleed Hgb 5.7 on admission 2U PRBCs ordered in ED, follow repeat H/H trend overnight Hold DAPT including ASA and Plavix Appreciate GI consult NPO at PR for possible EGD in AM IV Protonix bolus and drip started in ED Received another unit (3rd) overnight for Hgb 6.4 - H&H was not rechecked afterwards, per RN pt is currently on 4th unit of blood 02/17 - Received another unit of blood yesterday - now Hgb stable at 8.8 S/p EGD Findings: - A large hiatal hernia was present. - Six non-bleeding superficial gastric ulcers with no stigmata of bleeding were found in the gastric antrum. The largest lesion was 2 mm in largest dimension. Biopsies were taken with a cold forceps for histology. - The examined duodenum was normal. - Moderate inflammation characterized by erythema and erosions was found in the gastric antrum. Biopsies were taken with a cold forceps for histology. - Four non-bleeding cratered and linear gastric ulcers with a visible vessel were found in the gastric body and in the gastric fundus. The largest lesion was 8 mm in largest dimension. Coagulation for hemostasis using argon plasma was successful. Impression: - Large hiatal hernia. - Non-bleeding gastric ulcers with no stigmata of bleeding. Biopsied. - Normal examined duodenum. - Acute gastritis, characterized by erythema and erosions. Biopsied. - Non-bleeding gastric ulcers with a visible vessel. Treated with argon plasma coagulation (APC). Recommendation: - - Await pathology results. - PPI twice daily IV full liquid diet today and can start soft solids tomorrow. Keep head of bed above 30 degrees. Await pathology. Bleeding is from gastric ulcers in the hernia sac, these are called Naveed's lesions. 2 of the ulcers had a pigmented material and a visible vessel and they were cauterized completely with APC Hgb on 02/15 evening 8.4, 02/16 AM hgb 74 - unit of pRBC ordered Will recheck H&H after blood transfusion, and cont. to monitor (02/17) Hgb 8.8, stable from yesterday after 1 unit of pRBC given yesterday History of elective L hip arthroplasty in July 2024 Prosthetic joint infection of L hip Initial L hip arthroplasty c/b postop fall in September 2024 with resultant periprosthetic fx -S/p ORIF of the L femur performed by Dr. Catry at [facility] on 10/06/2024 Also had L hip wound dehiscence back in September 2024 and was admitted under our service -Completed 1mo course of Bactrim and doxycycline at this time d/t c/f superficial wound infection Then started to experience significant degree of L hip pain in late December 2024 -There was high clinical concern at this time for possible prosthetic joint infection -Admitted at [facility] 01/16/2025-01/19/2025 for L hip arthroplasty revision with placement of ABX spacer (surgery occurred on 01/16/25) -Intraop sustained 1L blood loss which resulted in significant postop ABLA requiring a total of 3U PRBCs to be given during that admission -Hardware cultures grew Staph epidermis -ID recommended: IV vancomycin (EOT 02/27/2025) plus po rifampin 600mg daily (EOT 04/21/2025), then will need to start po doxycycline 100mg BID AFTER completion of IV vancomycin for PJI prophylaxis Continue IV vancomycin and po rifampin as outlined above per previous ID recs -Pt missed full dose of IV vancomycin today 2/2 syncopal event so will check trough level and restart with appropriate dosage per pharm Continue daily probiotic while on above ABX ID follow-up appt with Dr. Roger on 03/20/[address] [facility] L femur CT today noting an ununited fracture at the proximal shaft -Previous L hip XR from 01/16/2025 shows no fractures per chart review -? if this is new or expected postsurgical changes as his L hip XR today stated: "There is a partially healed fracture proximal shaft of the left femur with improved alignment compared to the prior exam. There is lucency around the distal aspect of the left hip prosthesis which could represent residual lucency from the fracture or hardware loosening. There is heterotopic ossification surrounding the proximal to mid shaft of the left femur. No new fracture or dislocation seen." -Appreciate ortho consult for further eval of this --> will consult [facility] as pt had initial L hip arthroplasty done by Dr. Mccann [facility] consulted - recommend to follow up w/ [facility] - per pt - he is to follow up in March (03/12/2025 w/ / Carloz - confirmed) Acquired hypothyroidism Continue levothyroxine History of alcohol use No alcoholic consumption since September 2024 per discussion with the patient Prior to that, patient was consuming 1 pint of bourbon and occasionally a "few beers"/day x >10yrs Continue folic acid and thiamine supplementation HTN Continue Norvasc and losartan with hold parameters HLD CAD with history of NSTEMI in setting of DKA in August 2015 Continue BB Holding DAPT for now - as outlined above Chronic HFpEF Appears euvolemic on exam Continue Lasix and monitor daily wts/I&Os K+ stable, continue po supplementation History of GERD with esophagitis Hold po PPI for now while on IV Protonix drip - as per above BPH with LUTS Continue Proscar and Flomax DM peripheral neuropathy Continue gabapentin Depression Continue venlafaxine DVT Prophylaxis: SCDs/TEDs only in light of above Disposition: PCU Admission and Anticipated Discharge Date Admission Date: February 14, 2025 Subjective Pt seen in follow up Presents with syncope - found to be anemic Also s/p recent hip surgery, currently on vanco and rifampin per ID Currently sitting up in chair in NAD, feeling well today. Yesterday received another blood transfusion. Currently Hgb stable at 8.8 Denies fever, chills, chest pain, shortness of breath Does report having very dark stool prior to admission. Also 2 BMs yesterday - dark. Seen by GI - s/p EGD, cont. PPI, soft diet Seen by orthopedics - plan to follow up w/ [facility] Review of Systems Review of Systems: All systems reviewed & are unremarkable except as noted in Subjective Physical Exam Physical Exam: General - sitting up in chair without any acute distress Chestclear to auscultate bilaterally HeartS1-S2, regular Abdomen soft, nontender Extremities L thigh edema, scar healed, no erythema, or drainage, moves extremities CNSalert, awake oriented x 3, speech fluent, answers appropriately Results & Data Results & Data Vital Signs (Past 12 Hours) Vital Signs Temp Pulse Pulse Resp BP Pulse Ox O2 Del Method 02/17/25 07:27 Room Air, CPAP 02/17/25 07:25 59 L 02/17/25 03:45 36.2 C L 63 16 149/78 H 97 Room Air, CPAP 02/16/25 23:37 36.6 C 67 16 112/70 96 CPAP 02/16/25 21:48 63 02/16/25 20:09 36.5 C 66 16 162/83 H 97 Room Air 02/16/25 20:00 Room Air, CPAP Laboratory Results 02/17/25 02/17/25 02/17/25 Range/Units 07:20 06:28 03:43 WBC 6.74 (4.8-10.8) K/ul RBC 3.16 L (4.70-6.10) M/uL Hgb 8.7 L (14.0-18.0) g/dl Hct 27.8 L (42.0-52.0) % MCV 88.0 (80.0-100.0) fL MCH 27.5 (25.0-34.0) pg MCHC 31.3 L (32.0-36.0) g/dL RDW Std Deviation 51.3 H (36.4-46.3) fL RDW Coeff of Juan Manuel 16.3 H (11.5-14.5) % Plt Count 254 (130-400) K/uL MPV 10.6 (9.4-12.4) fL Sodium 136 (136-145) mmol/L Potassium 4.0 (3.5-5.1) mmol/L Chloride 104 (98-107) mmol/L Carbon Dioxide 24 (21-32) mmol/L Anion Gap 8 (3-11) BUN 15 (6-23) mg/dl Creatinine 0.95 (0.6-1.4) mg/dl Est Cr Clr Drug Dosing 102.7 ml/min eGFR 87.73 BUN/Creatinine Ratio 15.8 (10-20) Glucose 114 H (70-99(Fasting)) mg/dl POC Glucose 119 H 80 (70-99) mg/dl Calcium 8.6 (8.6-10.3) mg/dl Phosphorus 4.1 (2.5-4.9) mg/dl Magnesium 1.9 (1.7-2.4) mg/dl Blood Type Antibody Screen Crossmatch 02/17/25 02/17/25 02/17/25 Range/Units 00:41 00:19 00:01 WBC (4.8-10.8) K/ul RBC (4.70-6.10) M/uL Hgb (14.0-18.0) g/dl Hct (42.0-52.0) % MCV (80.0-100.0) fL MCH (25.0-34.0) pg MCHC (32.0-36.0) g/dL RDW Std Deviation (36.4-46.3) fL RDW Coeff of Juan Manuel (11.5-14.5) % Plt Count (130-400) K/uL MPV (9.4-12.4) fL Sodium (136-145) mmol/L Potassium (3.5-5.1) mmol/L Chloride (98-107) mmol/L Carbon Dioxide (21-32) mmol/L Anion Gap (3-11) BUN (6-23) mg/dl Creatinine (0.6-1.4) mg/dl Est Cr Clr Drug Dosing ml/min eGFR BUN/Creatinine Ratio (10-20) Glucose (70-99(Fasting)) mg/dl POC Glucose 89 60 L* 44 L* (70-99) mg/dl Calcium (8.6-10.3) mg/dl Phosphorus (2.5-4.9) mg/dl Magnesium (1.7-2.4) mg/dl Blood Type Antibody Screen Crossmatch 02/16/25 02/16/25 02/16/25 Range/Units 20:39 19:39 16:23 WBC (4.8-10.8) K/ul RBC (4.70-6.10) M/uL Hgb 8.8 L (14.0-18.0) g/dl Hct 28.0 L (42.0-52.0) % MCV (80.0-100.0) fL MCH (25.0-34.0) pg MCHC (32.0-36.0) g/dL RDW Std Deviation (36.4-46.3) fL RDW Coeff of Juan Manuel (11.5-14.5) % Plt Count (130-400) K/uL MPV (9.4-12.4) fL Sodium (136-145) mmol/L Potassium (3.5-5.1) mmol/L Chloride (98-107) mmol/L Carbon Dioxide (21-32) mmol/L Anion Gap (3-11) BUN (6-23) mg/dl Creatinine (0.6-1.4) mg/dl Est Cr Clr Drug Dosing ml/min eGFR BUN/Creatinine Ratio (10-20) Glucose (70-99(Fasting)) mg/dl POC Glucose 257 H 314 H* (70-99) mg/dl Calcium (8.6-10.3) mg/dl Phosphorus (2.5-4.9) mg/dl Magnesium (1.7-2.4) mg/dl Blood Type Antibody Screen Crossmatch 02/16/25 02/16/25 02/14/25 Range/Units 14:06 11:26 11:55 WBC (4.8-10.8) K/ul RBC (4.70-6.10) M/uL Hgb 8.9 L (14.0-18.0) g/dl Hct 28.4 L (42.0-52.0) % MCV (80.0-100.0) fL MCH (25.0-34.0) pg MCHC (32.0-36.0) g/dL RDW Std Deviation (36.4-46.3) fL RDW Coeff of Juan Manuel (11.5-14.5) % Plt Count (130-400) K/uL MPV (9.4-12.4) fL Sodium (136-145) mmol/L Potassium (3.5-5.1) mmol/L Chloride (98-107) mmol/L Carbon Dioxide (21-32) mmol/L Anion Gap (3-11) BUN (6-23) mg/dl Creatinine (0.6-1.4) mg/dl Est Cr Clr Drug Dosing ml/min eGFR BUN/Creatinine Ratio (10-20) Glucose (70-99(Fasting)) mg/dl POC Glucose 294 H (70-99) mg/dl Calcium (8.6-10.3) mg/dl Phosphorus (2.5-4.9) mg/dl Magnesium (1.7-2.4) mg/dl Blood Type B Negative Antibody Screen NEGATIVE Crossmatch See Detail Medications Administered Current Inpatient Medications Acetaminophen (Acetaminophen 325 Mg Tab) 650 mg PO Q4H PRN PRN Reason: Pain or Fever Stop: 03/16/25 17:21 Amlodipine Besylate (Amlodipine Besylate 5 Mg Tab) 5 mg PO QAM [facility] Stop: 03/17/25 08:59 Last Admin: 02/16/25 08:02 Dose: 5 mg Artificial Tears (Artificial Tears) 1 drops OP QID PRN PRN Reason: Dryness Stop: 03/16/25 19:31 Atorvastatin Calcium (Atorvastatin 40 Mg Tab) 40 mg PO QAM [facility] Stop: 03/17/25 08:59 Last Admin: 02/16/25 08:02 Dose: 40 mg Dextrose (Dextrose 50% 50 Ml Syringe) 25 - 50 ml IV UD PRN; Protocol PRN Reason: Hypoglycemia Protocol Stop: 03/16/25 16:57 Finasteride (Finasteride 5 Mg Tab) 5 mg PO QPM [facility] Stop: 03/16/25 20:59 Last Admin: 02/16/25 20:11 Dose: 5 mg Folic Acid (Folic Acid 1 Mg Tab) 1 mg PO QAM [facility] Stop: 03/17/25 08:59 Last Admin: 02/16/25 08:01 Dose: 1 mg Furosemide (Furosemide 40 Mg Tab) 40 mg PO BID@0800,1200 [facility] Stop: 03/17/25 07:59 Last Admin: 02/16/25 12:00 Dose: 40 mg Gabapentin (Gabapentin 300 Mg Cap) 300 mg PO BID [facility] Stop: 03/16/25 20:59 Last Admin: 02/16/25 20:12 Dose: 300 mg Glucagon (Glucagon For Inj 1 Mg Vial) 1 mg SQ UD PRN; Protocol PRN Reason: Hypoglycemia Protocol Stop: 03/16/25 16:57 Glucose (Glucose 40% Gel 15 Gm Tube) 15 - 30 gm PO UD PRN; Protocol PRN Reason: Hypoglycemia Protocol Stop: 03/16/25 16:57 Glucose (Glucose 10 Tab/Tube) 4 - 8 tab PO UD PRN; Protocol PRN Reason: Hypoglycemia Protocol Stop: 03/16/25 16:57 Heparin Sodium (Beef Lung) (Heparin 10 Unit/Ml 5 Ml Flush) 5 ml FLUSH PRN PRN PRN Reason: Flush Stop: 03/17/25 04:37 Pantoprazole Sodium 40 mg/ (Dextrose) 100 mls @ 20 mls/hr IV Q5H [facility] Stop: 03/16/25 17:14 Last Admin: 02/17/25 07:22 Dose: 8 mg/hr, 20 mls/hr Vancomycin HCl (Vancomycin Hcl / Nss) 1,000 mg in 270 mls @ 200 mls/hr IV Q12H [facility] Stop: 02/28/25 21:59 Last Infusion: 02/16/25 22:33 Dose: Infused Insulin Aspart (Insulin Aspart Per Unit Charge) 0 units SC ACHS [facility] Stop: 03/17/25 14:59 Last Admin: 02/16/25 21:00 Dose: 12 units Insulin Glargine (Lantus Per Unit Charge) 0 units SC HS [facility]; Protocol Stop: 03/17/25 20:59 Last Admin: 02/16/25 21:01 Dose: 20 units Insulin Glargine (Lantus Per Unit Charge) 45 units SC DAILY [facility] Stop: 03/18/25 08:59 Last Admin: 02/16/25 08:00 Dose: 45 units Lactobacillus Acidophilus (Advanced Probiotic 625 Mg Capsule) 625 mg PO DAILY [facility] Stop: 03/17/25 08:59 Last Admin: 02/16/25 08:01 Dose: 625 mg Levothyroxine Sodium (Levothyroxine Sodium 125 Mcg Tablet) 125 mcg PO DAILYBB [facility] Stop: 03/17/25 06:29 Last Admin: 02/17/25 06:18 Dose: 125 mcg Losartan Potassium (Losartan Potassium 50 Mg Tab) 50 mg PO QAM [facility] Stop: 03/17/25 08:59 Last Admin: 02/16/25 08:01 Dose: 50 mg Magnesium Hydroxide (Magnesium Hydroxide Susp 30 Ml Udc) 30 ml PO Q12H PRN PRN Reason: Constipation Stop: 03/16/25 17:21 Metoprolol Succinate (Metoprolol Succ 25mg Ext Rel Tab) 25 mg PO AMHS [facility] Stop: 03/16/25 20:59 Last Admin: 02/16/25 20:12 Dose: 25 mg Miscellaneous (Carbohydrates For Hypoglycemia ) 15 - 30 gm PO UD PRN PRN Reason: Hypoglycemia Protocol Stop: 03/16/25 16:57 Last Admin: 02/17/25 00:22 Dose: 15 gm Miscellaneous Information (Pharmacy Glycemic Mgmt Consult) 1 each N/A UD PRN PRN Reason: Consult Stop: 03/16/25 16:57 Miscellaneous Information (Vancomycin Consult Active) 1 each N/A UD PRN PRN Reason: Consult Stop: 03/16/25 17:05 Multivitamins/Minerals (Cerovite Adv Formula Tab) 1 tab PO DAILY [facility] Stop: 03/17/25 08:59 Last Admin: 02/16/25 08:01 Dose: 1 tab Ondansetron HCl (Ondansetron Inj 2 Mg/Ml 2 Ml Vial) 4 mg IV Q6H PRN PRN Reason: Nausea Stop: 03/16/25 17:21 Polyethylene Glycol (Polyethylene (Miralax) 17 Gm Pack) 17 gm PO DAILY PRN PRN Reason: Constipation Stop: 03/16/25 17:21 Potassium Chloride (Potassium Chloride Crtab 20 Meq Tabcr) 20 meq PO BID [facility] Stop: 03/16/25 20:59 Last Admin: 02/16/25 20:11 Dose: 20 meq Rifampin (Rifampin 300 Mg Capsule) 600 mg PO QAM [facility] Stop: 04/21/25 23:59 Last Admin: 02/16/25 08:02 Dose: 600 mg Tamsulosin HCl (Tamsulosin Hcl 0.4 Mg Cap) 0.4 mg PO HS [facility] Stop: 03/16/25 20:59 Last Admin: 02/16/25 20:13 Dose: 0.4 mg Thiamine HCl (Thiamine Hcl 100 Mg Tab) 100 mg PO QAM [facility] Stop: 03/17/25 08:59 Last Admin: 02/16/25 08:02 Dose: 100 mg Venlafaxine HCl (Venlafaxine Hcl Xr 150 Mg Capxr) 150 mg PO QAM [facility] Stop: 03/17/25 08:59 Last Admin: 02/16/25 08:01 Dose: 150 mg (1) Syncope Syncope type: unspecified Qualified Code(s): R55 - Syncope and collapse (4) Prosthetic joint infection of left hip Encounter type: sequela Qualified Code(s): T84.52XS - Infection and inflammatory reaction due to internal left hip prosthesis, sequela
[2025-02-17] MEDS: LANTUS PER UNIT CHARGE SC SCH (12:16)
--- NOTE | 2025-02-17 13:59 | Pharmacy Report ---
Pharmacy Glycemic Short Note 2 - Date of Service February 17, 2025 - Glycemic Short BSG Results (Last 24 hours): 02/16/25 02/16/25 02/17/25 16:23 19:39 00:01 Glucose POC Glucose 314 H* 257 H 44 L* 02/17/25 02/17/25 02/17/25 00:19 00:41 03:43 Glucose POC Glucose 60 L* 89 80 02/17/25 02/17/25 02/17/25 06:28 07:20 11:28 Glucose 114 H POC Glucose 119 H 156 H OUTPATIENT ANTIDIABETIC REGIMEN: * Insulin pump, unknown settings, CDE Consulted regarding getting patient a new pump * A1c 6% 02/15/25 (down from 7.1% 09/14/24) ASSESSMENT: 02/17: * Patient received total of 151 units of insulin yesterday, of which 75 units were basal insulin * BSGs trending down overnight, hypoglycemic at ~40s - trending back upward this AM * Fasting BSG 119 mg/dL - consideration of insulin pump reattachment was discussed yesterday, however patient does not want to use insulin pump. Will continue with SQ insulin. 02/16: * Damon received a total of 147 units of insulin yesterday (55 units were basal and 92 units were bolus). BSGs remained very elevated (>300mg/dL) through the first half of the day yesterday. Bolus insulin regimen adjusted to a more aggressive regimen and BSG finally normalized at HS. * Fasting BSG jac to 227mg/dL this morning. 45 units of Lantus SQ daily was ordered. BSG continue to rise at lunch, so bolus insulin parameters were tightened further and an additional 10 units of Lantus x 1 was ordered. Will continue Lantus scale (0 or 20 units depending on BSG) at HS. * Plan is to resume patient's home insulin pump tomorrow if possible. Tomorrow morning's dose of Lantus has been placed on hold in anticipation of this. If the pump isn't restarted, will resume basal/bolus regimen. 02/15: * 69 yo M, type 1 DM, on long term care pharmacist IV antibiotics for infected hardware of prosthetic hip joint, on IV Protonix for suspected GI bleed, from [facility] after sustaining a syncopal episode. * Insulin pump was removed and patient has been hyperglycemic since admission. A1c suggestive of possible hypoglycemia. * Patient received 20 units basal and 10 units NovoLog last night, fasting BSG = 388mg/dl, and remained in the 300s despite 55 units of Lantus and 65 units of NovoLog. NPO for EGD today, now starting lunch after procedure, BSG down to 255mg/dl. PLAN FOR INPATIENT GLYCEMIC CONTROL: * Hold outpatient pump * Basal insulin * Lantus 60 units once daily * Bolus insulin * NovoLog per scale ACHS or Q6hrs while NPO * Goal Range: Low 110 mg/dL - High 180 mg/dL * Correction Factor: 15 mg/dL/unit * Nutritional / Prandial insulin per carb ratio of 1 unit per 4 grams CHO consumed
--- NOTE | 2025-02-18 07:34 | Hospitalist Progress Note ---
Date of Service February 18, 2025 Assessment & Plan (1) Syncope: (2) Melena: (3) Acute on chronic anemia: (4) Prosthetic joint infection of left hip: Plan Per admitting provider w/ addendum: Patient is a medically complex 69-year-old male with past medical history significant for T1DM with DM peripheral angiopathy, CKD stage II, acquired hypothyroidism, HLD, HTN, CAD with history of NSTEMI in setting of DKA s/p cardiac catheterization in August 2015 demonstrating 50-60% serial mid RCA lesion with distal RPLB lesion thought to be culprit (distal lesion not amenable to revascularization) and 30% mid LAD lesion, history of PAF in setting of alcohol withdrawal with no known recurrence, chronic HFpEF, aortic root and ascending aorta enlargement, COPD, chronic alcohol abuse, CHANTELL on CPAP, seizure disorder, history of venous insufficiency with multiple vascular interventions, history of osteomyelitis of the hands with multiple bilateral finger amputations, history of orthostatic hypotension, GERD with esophagitis, mass of left liver lobe, mo rbid obesity, BPH with LUTS, MGUS and hearing loss of left ear who presented to the ED via EMS from [facility] after sustaining a syncopal episode. Syncopal event ISO acute on chronic anemia, suspected upper GI bleed as outlined below TTE for completeness ordered on admission given his cardiac history Fall precautions Chest CTA: no PE, no acute intrathoracic findings, mild cardiomegaly, mod-large hiatal hernia Acute on chronic anemia Melena ISO suspected upper GI bleed Hgb 5.7 on admission 2U PRBCs ordered in ED, follow repeat H/H trend overnight Hold DAPT including ASA and Plavix Appreciate GI consult NPO at [place] for possible EGD in AM IV Protonix bolus and drip started in ED Received another unit (3rd) overnight for Hgb 6.4 - H&H was not rechecked afterwards, per RN pt is currently on 4th unit of blood 02/17 - Received another unit of blood yesterday - now Hgb stable at 8.8 S/p EGD Findings: - A large hiatal hernia was present. - Six non-bleeding superficial gastric ulcers with no stigmata of bleeding were found in the gastric antrum. The largest lesion was 2 mm in largest dimension. Biopsies were taken with a cold forceps for histology. - The examined duodenum was normal. - Moderate inflammation characterized by erythema and erosions was found in the gastric antrum. Biopsies were taken with a cold forceps for histology. - Four non-bleeding cratered and linear gastric ulcers with a visible vessel were found in the gastric body and in the gastric fundus. The largest lesion was 8 mm in largest dimension. Coagulation for hemostasis using argon plasma was successful. Impression: - Large hiatal hernia. - Non-bleeding gastric ulcers with no stigmata of bleeding. Biopsied. - Normal examined duodenum. - Acute gastritis, characterized by erythema and erosions. Biopsied. - Non-bleeding gastric ulcers with a visible vessel. Treated with argon plasma coagulation (APC). Recommendation: - - Await pathology results. - PPI twice daily IV full liquid diet today and can start soft solids tomorrow. Keep head of bed above 30 degrees. Await pathology. Bleeding is from gastric ulcers in the hernia sac, these are called Naveed's lesions. 2 of the ulcers had a pigmented material and a visible vessel and they were cauterized completely with APC Hgb on 02/15 evening 8.4, 02/16 AM hgb 74 - unit of pRBC ordered Will recheck H&H after blood transfusion, and cont. to monitor (02/17) Hgb 8.8, stable from yesterday after 1 unit of pRBC given yesterday (02/18) Hgb 9.1 History of elective L hip arthroplasty in July 2024 Prosthetic joint infection of L hip Initial L hip arthroplasty c/b postop fall in September 2024 with resultant periprosthetic fx -S/p ORIF of the L femur performed by Dr. Carty at [facility] on 10/06/2024 Also had L hip wound dehiscence back in September 2024 and was admitted under our service -Completed 1mo course of Bactrim and doxycycline at this time d/t c/f superficial wound infection Then started to experience significant degree of L hip pain in late December 2024 -There was high clinical concern at this time for possible prosthetic joint infection -Admitted at [facility] 01/16/2025-01/19/2025 for L hip arthroplasty revision with placement of ABX spacer (surgery occurred on 01/16/25) -Intraop sustained 1L blood loss which resulted in significant postop ABLA requiring a total of 3U PRBCs to be given during that admission -Hardware cultures grew Staph epidermis -ID recommended: IV vancomycin (EOT 02/27/2025) plus po rifampin 600mg daily (EOT 04/21/2025), then will need to start po doxycycline 100mg BID AFTER completion of IV vancomycin for PJI prophylaxis Continue IV vancomycin and po rifampin as outlined above per previous ID recs -Pt missed full dose of IV vancomycin today 2/2 syncopal event so will check trough level and restart with appropriate dosage per pharm Continue daily probiotic while on above ABX ID follow-up appt with Dr. Roger on 03/20/2025 at [facility] L femur CT today noting an ununited fracture at the proximal shaft -Previous L hip XR from 01/16/2025 shows no fractures per chart review -? if this is new or expected postsurgical changes as his L hip XR today stated: "There is a partially healed fracture proximal shaft of the left femur with improved alignment compared to the prior exam. There is lucency around the distal aspect of the left hip prosthesis which could represent residual lucency from the fracture or hardware loosening. There is heterotopic ossification surrounding the proximal to mid shaft of the left femur. No new fracture or dislocation seen." -Appreciate ortho consult for further eval of this --> will consult [facility] as pt had initial L hip arthroplasty done by Dr. Mccann [facility] consulted - recommend to follow up w/ [facility] - per pt - he is to follow up in March (03/12/2025 w/ / Carloz - confirmed) Acquired hypothyroidism Continue levothyroxine History of alcohol use No alcoholic consumption since September 2024 per discussion with the patient Prior to that, patient was consuming 1 pint of bourbon and occasionally a "few beers"/day x >10yrs Continue folic acid and thiamine supplementation HTN Continue Norvasc and losartan with hold parameters HLD CAD with history of NSTEMI in setting of DKA in August 2015 Continue BB Holding DAPT for now - as outlined above Chronic HFpEF Appears euvolemic on exam Continue Lasix and monitor daily wts/I&Os K+ stable, continue po supplementation History of GERD with esophagitis Hold po PPI for now while on IV Protonix drip - as per above BPH with LUTS Continue Proscar and Flomax DM peripheral neuropathy Continue gabapentin Depression Continue venlafaxine DVT Prophylaxis: SCDs / TEDs only in light of above Disposition: PCU Admission and Anticipated Discharge Date Admission Date: February 14, 2025 Subjective Pt seen in follow up Presents with syncope - found to be anemic Also s/p recent hip surgery, currently on vanco and rifampin per ID Currently sitting up in chair in NAD, feeling well today. Currently Hgb stable at 9.1. Will start soft diet. Per RN - stools now more brown Denies fever, chills, chest pain, shortness of breath Does report having very dark stool prior to admission. Also here, but now seems more brown. Seen by GI - s/p EGD, cont. PPI, soft diet Seen by orthopedics - plan to follow up w/ [facility] Review of Systems Review of Systems: All systems reviewed & are unremarkable except as noted in Subjective Physical Exam Physical Exam: General - sitting up in chair without any acute distress Chestclear to auscultate bilaterally HeartS1-S2, regular Abdomen soft, nontender Extremities L thigh edema, scar healed, no erythema, or drainage, moves extremities CNSalert, awake oriented x 3, speech fluent, answers appropriately Results & Data Results & Data Vital Signs (Past 12 Hours) Vital Signs Temp Pulse Pulse Pulse Resp BP Pulse Ox 02/18/25 07:23 37.0 C 140 H 20 138/77 97 02/18/25 02:22 36.4 C L 59 L 20 148/74 H 98 02/17/25 22:53 36.5 C 61 20 130/75 98 02/17/25 21:41 63 O2 Del Method 02/18/25 07:23 Room Air 02/18/25 02:22 CPAP 02/17/25 22:53 CPAP 02/17/25 21:41 Laboratory Results 02/18/25 02/17/25 02/17/25 Range/Units 07:25 22:55 22:26 WBC 6.19 (4.8-10.8) K/ul RBC 3.33 L (4.70-6.10) M/uL Hgb 9.1 L (14.0-18.0) g/dl Hct 29.4 L (42.0-52.0) % MCV 88.3 (80.0-100.0) fL MCH 27.3 (25.0-34.0) pg MCHC 31.0 L (32.0-36.0) g/dL RDW Std Deviation 51.8 H (36.4-46.3) fL RDW Coeff of Juan Manuel 16.2 H (11.5-14.5) % Plt Count 250 (130-400) K/uL MPV 10.2 (9.4-12.4) fL Sodium 136 (136-145) mmol/L Potassium 3.7 (3.5-5.1) mmol/L Chloride 104 (98-107) mmol/L Carbon Dioxide 26 (21-32) mmol/L Anion Gap 6 (3-11) BUN 11 (6-23) mg/dl Creatinine 0.95 (0.6-1.4) mg/dl Est Cr Clr Drug Dosing 102.2 ml/min eGFR 87.73 BUN/Creatinine Ratio 11.6 (10-20) Glucose 86 (70-99(Fasting)) mg/dl POC Glucose 90 72 86 (70-99) mg/dl Calcium 8.8 (8.6-10.3) mg/dl Magnesium 1.9 (1.7-2.4) mg/dl 02/17/25 02/17/25 02/17/25 Range/Units 22:24 20:10 16:17 WBC (4.8-10.8) K/ul RBC (4.70-6.10) M/uL Hgb (14.0-18.0) g/dl Hct (42.0-52.0) % MCV (80.0-100.0) fL MCH (25.0-34.0) pg MCHC (32.0-36.0) g/dL RDW Std Deviation (36.4-46.3) fL RDW Coeff of Juan Manuel (11.5-14.5) % Plt Count (130-400) K/uL MPV (9.4-12.4) fL Sodium (136-145) mmol/L Potassium (3.5-5.1) mmol/L Chloride (98-107) mmol/L Carbon Dioxide (21-32) mmol/L Anion Gap (3-11) BUN (6-23) mg/dl Creatinine (0.6-1.4) mg/dl Est Cr Clr Drug Dosing ml/min eGFR BUN/Creatinine Ratio (10-20) Glucose (70-99(Fasting)) mg/dl POC Glucose 47 L* 140 H 241 H (70-99) mg/dl Calcium (8.6-10.3) mg/dl Magnesium (1.7-2.4) mg/dl 02/17/25 Range/Units 11:28 WBC (4.8-10.8) K/ul RBC (4.70-6.10) M/uL Hgb (14.0-18.0) g/dl Hct (42.0-52.0) % MCV (80.0-100.0) fL MCH (25.0-34.0) pg MCHC (32.0-36.0) g/dL RDW Std Deviation (36.4-46.3) fL RDW Coeff of Juan Manuel (11.5-14.5) % Plt Count (130-400) K/uL MPV (9.4-12.4) fL Sodium (136-145) mmol/L Potassium (3.5-5.1) mmol/L Chloride (98-107) mmol/L Carbon Dioxide (21-32) mmol/L Anion Gap (3-11) BUN (6-23) mg/dl Creatinine (0.6-1.4) mg/dl Est Cr Clr Drug Dosing ml/min eGFR BUN/Creatinine Ratio (10-20) Glucose (70-99(Fasting)) mg/dl POC Glucose 156 H (70-99) mg/dl Calcium (8.6-10.3) mg/dl Magnesium (1.7-2.4) mg/dl Medications Administered Current Inpatient Medications Acetaminophen (Acetaminophen 325 Mg Tab) 650 mg PO Q4H PRN PRN Reason: Pain or Fever Stop: 03/16/25 17:21 Amlodipine Besylate (A[facility]odipine Besylate 5 Mg Tab) [facility] [place]: 03/17/25 08:59 Last Admin: 02/17/25 08:20 Dose: 5 mg Artificial Tears (Artificial Tears) 1 drops OP QID PRN PRN Reason: Dryness Stop: 03/16/25 19:31 Atorvastatin Calcium (Atorvastatin 40 Mg Tab) [facility] Stop: 03/17/25 08:59 Last Admin: 02/17/25 08:19 Dose: 40 mg Dextrose (Dextrose 50% 50 Ml Syringe) 25 - 50 ml IV UD PRN; Protocol PRN Reason: Hypoglycemia Protocol Stop: 03/16/25 16:57 Finasteride (Finasteride 5 Mg Tab) 5 mg PO QPM Y[facility]IOR Stop: 03/16/25 20:59 Last Admin: 02/17/25 20:42 Dose: 5 mg Folic Acid (Folic Acid 1 Mg Tab) 1 mg PO QAM YUNIOR Stop: 03/17/25 08:59 Last Admin: 02/17/25 08:20 Dose: 1 mg Furosemide (Furosemide 40 Mg Tab) 40 mg PO BID@0800,1200 YUNIOR Stop: 03/17/25 07:59 Last Admin: 02/17/25 11:46 Dose: 40 mg Gabapentin (Gabapentin 300 Mg Cap) 300 mg PO BID YUNIOR Stop: 03/16/25 20:59 Last Admin: 02/17/25 20:40 Dose: 300 mg Glucagon (Glucagon For Inj 1 Mg Vial) 1 mg SQ UD PRN; Protocol PRN Reason: Hypoglycemia Protocol Stop: 03/16/25 16:57 Glucose (Glucose 40% Gel 15 Gm Tube) 15 - 30 gm PO UD PRN; Protocol PRN Reason: Hypoglycemia Protocol Stop: 03/16/25 16:57 Glucose (Glucose 10 Tab/Tube) 4 - 8 tab PO UD PRN; Protocol PRN Reason: Hypoglycemia Protocol Stop: 03/16/25 16:57 Heparin Sodium (Beef Lung) (Heparin 10 Unit/Ml 5 Ml Flush) 5 ml FLUSH PRN PRN PRN Reason: Flush Stop: 03/17/25 04:37 Pantoprazole Sodium 40 mg/ (Dextrose) 100 mls @ 20 mls/hr IV Q5H YUNIOR Stop: 03/16/25 17:14 Last Admin: 02/18/25 07:34 Dose: 8 mg/hr, 20 mls/hr Vancomycin HCl (Vancomycin Hcl / Nss) 1,000 mg in 270 mls @ 200 mls/hr IV Q12H YUNIOR Stop: 02/28/25 21:59 Last Infusion: 02/17/25 22:20 Dose: Infused Insulin Aspart (Insulin Aspart Per Unit Charge) 0 units SC ACHS YUNIOR Stop: 03/17/25 14:59 Last Admin: 02/17/25 20:17 Dose: Not Given Lactobacillus Acidophilus (Advanced Probiotic 625 Mg Capsule) 625 mg PO DAILY YUNIOR Stop: 03/17/25 08:59 Last Admin: 02/17/25 08:19 Dose: 625 mg Levothyroxine Sodium (Levothyroxine Sodium 125 Mcg Tablet) 125 mcg PO DAILYBB [facility] Stop: 03/17/25 06:29 Last Admin: 02/18/25 05:33 Dose: 125 mcg Losartan Potassium (Losartan Potassium 50 Mg Tab) 50 mg PO QAM YUNIOR Stop: 03/17/25 08:59 Last Admin: 02/17/25 08:20 Dose: 50 mg Magnesium Hydroxide (Magnesium Hydroxide Susp 30 Ml Udc) 30 ml PO Q12H PRN PRN Reason: Constipation Stop: 03/16/25 17:21 Metoprolol Succinate (Metoprolol Succ 25mg Ext Rel Tab) 25 mg PO AMHS YUNIOR Stop: 03/16/25 20:59 Last Admin: 02/17/25 20:41 Dose: 25 mg Miscellaneous (Carbohydrates For Hypoglycemia ) 15 - 30 gm PO UD PRN PRN Reason: Hypoglycemia Protocol Stop: 03/16/25 16:57 Last Admin: 02/17/25 00:22 Dose: 15 gm Miscellaneous Information (Pharmacy Glycemic Mgmt Consult) 1 each N/A UD PRN PRN Reason: Consult Stop: 03/16/25 16:57 Miscellaneous Information (Vancomycin Consult Active) 1 each N/A UD PRN PRN Reason: Consult Stop: 03/16/25 17:05 Multivitamins/Minerals (Cerovite Adv Formula Tab) 1 tab PO DAILY YUNIOR Stop: 03/17/25 08:59 Last Admin: 02/17/25 08:20 Dose: 1 tab Ondansetron HCl (Ondansetron Inj 2 Mg/Ml 2 Ml Vial) 4 mg IV Q6H PRN PRN Reason: Nausea Stop: 03/16/25 17:21 Polyethylene Glycol (Polyethylene (Miralax) 17 Gm Pack) 17 gm PO DAILY PRN PRN Reason: Constipation Stop: 03/16/25 17:21 Potassium Chloride (Potassium Chloride Crtab 20 Meq Tabcr) 20 meq PO BID YUNIOR Stop: 03/16/25 20:59 Last Admin: 02/17/25 20:40 Dose: 20 meq Rifampin (Rifampin 300 Mg Capsule) 600 mg PO QAM YUNIOR Stop: 04/21/25 23:59 Last Admin: 02/17/25 08:20 Dose: 600 mg Tamsulosin HCl (Tamsulosin Hcl 0.4 Mg Cap) 0.4 mg PO HS YUNIOR Stop: 03/16/25 20:59 Last Admin: 02/17/25 20:43 Dose: 0.4 mg Thiamine HCl (Thiamine Hcl 100 Mg Tab) 100 mg PO QAM YUNIOR Stop: 03/17/25 08:59 Last Admin: 02/17/25 08:19 Dose: 100 mg Venlafaxine HCl (Venlafaxine Hcl Xr 150 Mg Capxr) 150 mg PO QAM [facility] Stop: 03/17/25 08:59 Last Admin: 02/17/25 08:20 Dose: 150 mg (1) Syncope Syncope type: unspecified Qualified Code(s): R55 - Syncope and collapse (4) Prosthetic joint infection of left hip Encounter type: sequela Qualified Code(s): T84.52XS - Infection and inflammatory reaction due to internal left hip prosthesis, sequela
[2025-02-18 07:37] LABS: Hematocrit (blood only) 29.4 % (42.0-52.0); Hemoglobin 9.1 g/dl (14.0-18.0); Mean Corpuscular Hemoglobin 27.3 pg (25.0-34.0); Mean Corpuscular Volume 88.3 fL (80.0-100.0); Platelet Count 250 K/uL (130-400); RDW Standard Deviation 51.8 fL (36.4-46.3); Red Blood Count 3.33 M/uL (4.70-6.10); White Blood Count 6.19 K/ul (4.8-10.8)
[2025-02-18 08:27] LABS: Anion Gap 6.0 (3-11); Blood Urea Nitrogen 11.0 mg/dl (6-23); Calcium 8.8 mg/dl (8.6-10.3); Carbon Dioxide 26.0 mmol/L (21-32); Chloride 104.0 mmol/L (98-107); Creatinine Clr Calc Pharmacy 102.2 ml/min; Glucose 86.0 mg/dl (70-99(Fasting)); Magnesium 1.9 mg/dl (1.7-2.4); Potassium 3.7 mmol/L (3.5-5.1); Sodium 136.0 mmol/L (136-145)
[2025-02-18] MEDS: LANTUS PER UNIT CHARGE SC ONE (12:28)
--- NOTE | 2025-02-18 14:47 | Pharmacy Report ---
Pharmacy Glycemic Short Note 2 - Date of Service February 18, 2025 - Glycemic Short BSG Results (Last 24 hours): 02/17/25 02/17/25 02/17/25 16:17 20:10 22:24 Glucose POC Glucose 241 H 140 H 47 L* 02/17/25 02/17/25 02/18/25 22:26 22:55 07:25 Glucose 86 POC Glucose 86 72 90 02/18/25 11:20 Glucose POC Glucose 259 H OUTPATIENT ANTIDIABETIC REGIMEN: * Insulin pump, unknown settings, CDE Consulted regarding getting patient a new pump * A1c 6% 02/15/25 (down from 7.1% 09/14/24) ASSESSMENT: 02/18: * Patient received total of 102 units of insulin yesterday, of which 60 were basal * Fasting BSG 86 mg/dL, however patient did have low BSG of 47 mg/dL overnight, given apple juice and recheck was 86. Had previously reduced Lantus dose 20% from day prior. Will reduce Lantus further by ~25% for today. 02/17: * Patient received total of 151 units of insulin yesterday, of which 75 units were basal insulin * BSGs trending down overnight, hypoglycemic at ~40s - trending back upward this AM * Fasting BSG 119 mg/dL - consideration of insulin pump reattachment was discussed yesterday, however patient does not want to use insulin pump. Will continue with SQ insulin. 02/16: * Damon received a total of 147 units of insulin yesterday (55 units were basal and 92 units were bolus). BSGs remained very elevated (>300mg/dL) through the first half of the day yesterday. Bolus insulin regimen adjusted to a more aggressive regimen and BSG finally normalized at HS. * Fasting BSG jac to 227mg/dL this morning. 45 units of Lantus SQ daily was ordered. BSG continue to rise at lunch, so bolus insulin parameters were tightened further and an additional 10 units of Lantus x 1 was ordered. Will continue Lantus scale (0 or 20 units depending on BSG) at HS. * Plan is to resume patient's home insulin pump tomorrow if possible. Tomorrow morning's dose of Lantus has been placed on hold in anticipation of this. If the pump isn't restarted, will resume basal/bolus regimen. 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 * Insulin pump was removed and patient has been hyperglycemic since admission. A1c suggestive of possible hypoglycemia. * Patient received 20 units basal and 10 units NovoLog last night, fasting BSG = 388mg/dl, and remained in the 300s despite 55 units of Lantus and 65 units of NovoLog. NPO for EGD today, now starting lunch after procedure, BSG down to 255mg/dl. PLAN FOR INPATIENT GLYCEMIC CONTROL: * Hold outpatient pump * Basal insulin * Lantus 45 units once daily * Bolus insulin * NovoLog per scale ACHS or Q6hrs while NPO * Goal Range: Low 110 mg/dL - High 180 mg/dL * Correction Factor: 15 mg/dL/unit * Nutritional / Prandial insulin per carb ratio of 1 unit per 4 grams CHO consumed
[2025-02-19 06:14] LABS: Hematocrit (blood only) 27.7 % (42.0-52.0); Hemoglobin 8.8 g/dl (14.0-18.0); Mean Corpuscular Hemoglobin 28.3 pg (25.0-34.0); Mean Corpuscular Volume 89.1 fL (80.0-100.0); Platelet Count 248 K/uL (130-400); RDW Standard Deviation 52.1 fL (36.4-46.3); Red Blood Count 3.11 M/uL (4.70-6.10); White Blood Count 6.63 K/ul (4.8-10.8)
[2025-02-19 06:28] LABS: Anion Gap 4.0 (3-11); Blood Urea Nitrogen 10.0 mg/dl (6-23); Calcium 8.4 mg/dl (8.6-10.3); Carbon Dioxide 26.0 mmol/L (21-32); Chloride 105.0 mmol/L (98-107); Creatinine Clr Calc Pharmacy 83.0 ml/min; Glucose 164.0 mg/dl (70-99(Fasting)); Magnesium 1.9 mg/dl (1.7-2.4); Potassium 3.9 mmol/L (3.5-5.1); Sodium 135.0 mmol/L (136-145)
[2025-02-19 07:13] VITALS: TEMP 98.1
--- NOTE | 2025-02-19 10:07 | Pharmacy Report ---
Pharmacy PK ABX Note - Date of Service February 19, 2025 - Assessment and Plan Assessment 02/19: Patient's renal function clinically stable. Next trough scheduled for 02/23/25. Likely last trough necessary since EOT is 02/27/25. Continue current regimen of vancomycin 1000mg Q12H. 02/16: Vancomycin level drawn this morning was 23.5mcg/mL (drawn 5 hours prior to the dose) which extrapolates to an AUC in the goal range. To continue current vancomycin regimen. 02/15: 69 year old M receiving IV Vancomycin for treatment of infected hardware with staph epidermis, s/p L Hip arthroplasty 07/2024. -ID recommended: IV vancomycin (EOT 02/27/2025) plus po rifampin 600mg daily (EOT 04/21/2025), then will need to start po doxycycline 100mg BID AFTER completion of IV vancomycin for PJI prophylaxis Patient missed Vancomycin yesterday d/t syncopal event. Random level was drawn last night, 17.9mcg/ml. Vancomycin restarted last night. Note that outpatient [facility] ID pharmacist who was managing vancomycin has had patient on 1500mg IV Q24H with good levels for an extended period of time. Inpatient at [facility] calculating a therapeutic dose at 1000mg IV Q12H. Random level was ordered for today but transactional attorney was unable to get blood at time needed d/t difficult stick. When trying later in the day, Vancomycin was already hung, so we will continue calculated dose and evaluate level tomorrow. Plan Vancomycin * Vancomycin level drawn 02/16/25 = 23.5mcg/mL which extrapolated to an AUC of 514. * Continue maintenance dose of: 1000 mg IV every 12 hours * Regimen is predicted to achieve target AUC/LEWIS of 400-600 mg/L.hr * Another vanco level is ordered for Wednesday02/23/25 as long as renal function remains stable. Pharmacy will continue to follow and will adjust dose/frequency as necessary. Thank you. Pharmacy has transitioned to AUC monitoring for vancomycin. AUC/LEWIS is the preferred PK/PD target and is associated with decreased risk of nephrotoxicity compared to traditional trough targets.
[2025-02-19 11:13] VITALS: RESP 18
[2025-02-19] MEDS: LANTUS PER UNIT CHARGE SC SCH (11:49)
[2025-02-19 16:09] VITALS: BP 137/52
--- NOTE | 2025-02-19 16:17 | Discharge Summary ---
Date of Service February 19, 2025 Admission HPI Per Admitting Provider Patient is a medically complex 69-year-old male with past medical history significant for T1DM with DM peripheral angiopathy, CKD stage II, acquired hypothyroidism, HLD, HTN, CAD with history of NSTEMI in setting of DKA s/p cardiac catheterization in August 2015 demonstrating 50-60% serial mid RCA lesion with distal RPLB lesion thought to be culprit (distal lesion not amenable to revascularization) and 30% mid LAD lesion, history of PAF in setting of alcohol withdrawal with no known recurrence, chronic HFpEF, aortic root and ascending aorta enlargement, COPD, chronic alcohol abuse, CHANTELL on CPAP, seizure disorder, history of venous insufficiency with multiple vascular interventions, history of osteomyelitis of the hands with multiple bilateral finger amputations, history of orthostatic hypotension, GERD with esophagitis, mass of left liver lobe, morbid obesity, BPH with LUTS, MGUS and hearing loss of left ear who presented to the ED via EMS from [facility] after sustaining a syncopal episode. Hist ory obtained from the patient, patient's at bedside, discussion with ED provider and associated chart review. Sustained syncopal episode while on toilet having BM at SNF facility earlier today. Admits to feeling somewhat lightheaded, dizzy and mildly SOB with exertion for the past several days but no reported falls or trauma. Denies any chest pain. Patient currently residing at [facility] for rehabilitation services after undergoing left hip arthroplasty revision, as detailed below, with resulting acute blood loss anemia requiring multiple blood transfusions. Reportedly had Hgb checked about 2 weeks ago at the facility at it was noted to be low around 6.9. Had [facility] appointment the next day and received 1U PRBCs. No further blood transfusions since then up until today. Upon further questioning, patient endorses melena for the past 2 days. This started yesterday morning. Had not noticed any discoloration in his stools prior to this, including manju red blood. Denies ever experiencing melanotic stools before. Denies any abdominal pain or N/V. Feels appetite has been fair. He has though, however, been experiencing some pain in his left hip over the past week when applying weight on his left lower extremity. Uses walker for ambulation. Admits that he had minimal, if any, pain prior to this following his left hip arthroplasty revision last month. Again, no falls or trauma after this most recent operation. Had elective total left hip replacement in July 2024 c/b postoperative fall in September 2024 with resultant periprosthetic fracture around the internal prosthetic left hip joint. S/p open reduction and internal fixation of the left femur on 10/06/[address] Marlon Carty at [facility]. Patient was admitted under our service in September 2024 due to concern for an infection of his left hip incision site due to wound dehiscence. He completed a 1 month course of Bactrim and doxycycline for this. Patient continued to have wound healing difficulties and hardware loosening. He was experiencing a significant degree of left hip pain in late December and there was high clinical concern for possible prosthetic joint infection. Patient was initially scheduled for left hip arthroplasty revision with placement of an antibiotic spacer in the setting of suspected prosthetic joint infection on 01/05/2025 however patient did not discontinue his anticoagulation prior to this so it had to be canceled. Patient was rescheduled for this procedure on 01/16/2025 which was performed by Dr. Marlon Carty at [facility]. Intraoperatively patient lost about 1L of blood which resulted in postoperative hypotensive 2/2 acute blood loss anemia. Patient received a total of 3U PRBCs and was admitted at [facility] 01/16/2025- 01/22/2025. Hardware cultures grew Staph epidermidis. Final ID recommendations: IV vancomycin (EOT 02/27/2025) and po rifampin 600mg QAM (EOT 04/21/25). Then doxycycline 100mg BID after completion of IV vancomycin for PJI prophylaxis. Has ID follow-up appointment with Dr. Jolene Mccallum on 03/20/2025 at [facility]. Admission Exam Per Admitting Provider General - sitting up in chair without any acute distress Chestclear to auscultate bilaterally HeartS1-S2, regular Abdomen soft, nontender Extremities L thigh edema, scar healed, no erythema, or drainage, moves extr emities CNSalert, awake oriented x 3, speech fluent, answers appropriately Principal Diagnosis Acute blood loss anemia, GI bleed Hx of hip fracture and infection Discharge Exam General - sitting up in chair without any acute distress Chestclear to auscultate bilaterally HeartS1-S2, regular Abdomen soft, nontender Extremities L thigh edema, scar healed, no erythema, or drainage, moves extremities CNSalert, awake oriented x 3, speech fluent, answers appropriately Discharge Data Allergies Allergy/AdvReac Type Severity Reaction Status Date / Time DEIDRE Inhibitors AdvReac Unknown Cough Verified 02/14/25 16:52 Consultations 02/14/25 15:10 ED Decision to Admit Stat 02/14/25 17:03 Consult Gastroenterology Routine 02/14/25 20:00 Consult Orthopedic Surgery Routine Procedures Performed Operation Date: 02/15/25 16:45 Actual Procedures p EGD Hemostasis - Ronald Noyola MD Ordered Studies 02/14/25 11:14 CT for pulmonary embolism PE [CT angio chest PE protocol] Stat FINDINGS: No pulmonary emboli are identified. There is no thoracic aortic dissection. Mild cardiomegaly is unchanged. Moderate to large hiatal hernia with partially intrathoracic stomach is again noted. Mildly enlarged subcarinal lymph node is unchanged since prior CT. This is indeterminate but likely benign. There is no pneumothorax or pleural effusion. There is no consolidation to suggest pneumonia. No acute fractures within the bony thorax are present. Visualized portions of the upper abdomen demonstrate small layering gallstones within the gallbladder. There is no evidence for acute cholecystitis. IMPRESSION: 1. No pulmonary emboli identified. 2. No acute intrathoracic findings. 3. Mild cardiomegaly. 4. Moderate to large hiatal hernia with partially intrathoracic stomach. 02/14/25 11:26 CT femur LT w con Stat FINDINGS: There is spray artifact from the metallic hip prosthesis. There is a comminuted minimally displaced minimally angulated ununited fracture proximal shaft of the left femur adjacent to the femoral component with surrounding heterotopic ossification. No other fracture or dislocation seen at the left femur. There is a small area of relative low density just lateral to the proximal femoral shaft which could represent a small amount of low-density fluid or artifact. No evidence of soft tissue hematoma seen. IMPRESSION: 1. No evidence of hematoma. 2. Ununited fracture at the proximal shaft left femur as described. Hospital Course (1) Syncope: (2) Melena: (3) Acute on chronic anemia: (4) Prosthetic joint infection of left hip: Plan Patient is a medically complex 69-year-old male with past medical history significant for T1DM with DM peripheral angiopathy, CKD stage II, acquired hypothyroidism, HLD, HTN, CAD with history of NSTEMI in setting of DKA s/p cardiac catheterization in August 2015 demonstrating 50-60% serial mid RCA lesion with distal RPLB lesion thought to be culprit (distal lesion not amenable to revascularization) and 30% mid LAD lesion, history of PAF in setting of alcohol withdrawal with no known recurrence, chronic HFpEF, aortic root and ascending aorta enlargement, COPD, chronic alcohol abuse, CHANTELL on CPAP, seizure disorder, history of venous insufficiency with multiple vascular interventions, history of osteomyelitis of the hands with multiple bilateral finger amputations, history of orthostatic hypotension, GERD with esophagitis, mass of left liver lobe, morbid obesity, BPH with LUTS, MGUS and hearing loss of left ear who presented to the ED via EMS from [facility] after sustaining a syncopal episode. Syncopal event ISO acute on chronic anemia, suspected upper GI bleed as outlined below TTE for completeness ordered on admission given his cardiac history Fall precautions Chest CTA: no PE, no acute intrathoracic findings, mild cardiomegaly, mod-large hiatal hernia Acute on chronic anemia Melena ISO suspected upper GI bleed Hgb 5.7 on admission 2U PRBCs ordered in ED, follow repeat H/H trend overnight Hold DAPT including ASA and Plavix Appreciate GI consult NPO at [facility] for possible EGD in AM IV Protonix bolus and drip started in ED Received another unit (3rd) overnight for Hgb 6.4 - H&H was not rechecked afterwards, per RN pt is currently on 4th unit of blood 02/17 - Received another unit of blood yesterday - now Hgb stable at 8.8 S/p EGD Findings: - A large hiatal hernia was present. - Six non-bleeding superficial gastric ulcers with no stigmata of bleeding were found in the gastric antrum. The largest lesion was 2 mm in largest dimension. Biopsies were taken with a cold forceps for histology. - The examined duodenum was normal. - Moderate inflammation characterized by erythema and erosions was found in the gastric antrum. Biopsies were taken with a cold forceps for histology. - Four non-bleeding cratered and linear gastric ulcers with a visible vessel were found in the gastric body and in the gastric fundus. The largest lesion was 8 mm in largest dimension. Coagulation for hemostasis using argon plasma was successful. Impression: - Large hiatal hernia. - Non-bleeding gastric ulcers with no stigmata of bleeding. Biopsied. - Normal examined duodenum. - Acute gastritis, characterized by erythema and erosions. Biopsied. - Non-bleeding gastric ulcers with a visible vessel. Treated with argon plasma coagulation (APC). Recommendation: - - Await pathology results. - PPI twice daily IV full liquid diet today and can start soft solids tomorrow. Keep head of bed above 30 degrees. Await pathology. Bleeding is from gastric ulcers in the hernia sac, these are called Naveed's lesions. 2 of the ulcers had a pigmented material and a visible vessel and they were cauterized completely with APC Hgb on 02/15 evening 8.4, 02/16 AM hgb 74 - unit of pRBC ordered Will recheck H&H after blood transfusion, and cont. to monitor (02/17) Hgb 8.8, stable from yesterday after 1 unit of pRBC given yesterday (02/18) Hgb 9.1 02/19 Hgb 8.8 and pt is on soft diet, doing well History of elective L hip arthroplasty in July 2024 Prosthetic joint infection of L hip Initial L hip arthroplasty c/b postop fall in September 2024 with resultant periprosthetic fx -S/p ORIF of the L femur performed by Dr. Carty at [facility] on 10/06/2024 Also had L hip wound dehiscence back in September 2024 and was admitted under our service -Completed 1mo course of Bactrim and doxycycline at this time d/t c/f superficial wound infection Then started to experience significant degree of L hip pain in late December 2024 -There was high clinical concern at this time for possible prosthetic joint infection -Admitted at [facility] 01/16/2025-01/19/2025 for L hip arthroplasty revision with placement of ABX spacer (surgery occurred on 01/16/25) -Intraop sustained 1L blood loss which resulted in significant postop ABLA requiring a total of 3U PRBCs to be given during that admission -Hardware cultures grew Staph epidermis -ID recommended: IV vancomycin (EOT 02/27/2025) plus po rifampin 600mg daily (EOT 04/21/2025), then will need to start po doxycycline 100mg BID AFTER completion of IV vancomycin for PJI prophylaxis Continue IV vancomycin and po rifampin as outlined above per previous ID recs -Pt missed full dose of IV vancomycin today 2/2 syncopal event so will check trough level and restart with appropriate dosage per pharm Continue daily probiotic while on above ABX ID follow-up appt with Dr. Mccallum on 03/20/2025 at [facility] L femur CT today noting an ununited fracture at the proximal shaft -Previous L hip XR from 01/16/2025 shows no fractures per chart review -? if this is new or expected postsurgical changes as his L hip XR today stated: "There is a partially healed fracture proximal shaft of the left femur with improved alignment compared to the prior exam. There is lucency around the distal aspect of the left hip prosthesis which could represent residual lucency from the fracture or hardware loosening. There is heterotopic ossification surrounding the proximal to mid shaft of the left femur. No new fracture or dislocation seen." -Appreciate ortho consult for further eval of this --> will consult [facility] as pt had initial L hip arthroplasty done by Dr. Mccann [facility] consulted - recommend to follow up w/ [facility] - per pt - he is to follow up in March (03/12/2025 w/ / Carloz - confirmed) Acquired hypothyroidism Continue levothyroxine History of alcohol use No alcoholic consumption since September 2024 per discussion with the patient Prior to that, patient was consuming 1 pint of bourbon and occasionally a "few beers"/day x >10yrs Continue folic acid and thiamine supplementation HTN Continue Norvasc and losartan with hold parameters HLD CAD with history of NSTEMI in setting of DKA in August 2015 Continue BB Holding DAPT for now - as outlined above Chronic HFpEF Appears euvolemic on exam Continue Lasix and monitor daily wts/I&Os K+ stable, continue po supplementation History of GERD with esophagitis Hold po PPI for now while on IV Protonix drip - as per above BPH with LUTS Continue Proscar and Flomax DM peripheral neuropathy Continue gabapentin Depression Continue venlafaxine Total Time Total Time Spent Total Time Spent (In Minutes): 40 Discharge Plan Discharge Items Patient Disposition: Home - Home Health Services Reason For Visit: SYNCOPE, ANEMIA Discharge Diagnosis: Acute blood loss anemia, GI bleed Hx of hip fracture and infection Condition on Discharge: Fair Activity: Per Instructions section Non-emergency contact: Primary Care Provider, Surgeon and Specialist Call non-emergency contact if: you have any medication questions and your symptoms worsen Follow-up/Referrals: Marlon Carty MD [Staff Physician] - 03/12/25 10:00 am Farzad Hatfield DO [Primary Care Provider] - (Date & Time 02/26/2025 2:20 PM Provider: Farzad Hatfield DO [facility] ) Jolene Mccallum MD [Physician] - 03/20/25 10:20 am Diet: Carb Consistent or DM2 and Heart Healthy Diet Texture: Mechanical soft (ground) Addtl Attending Provider Instructions: Follow up with primary care doctor, orthopedic doctor and infectious disease. Take pantoprazole twice a day and recommend soft foods for now. Continue antibiotics as previously prescribed. Pending Studies at Discharge: Yes Studies:: blood cultx results Stand-Alone Forms: My [employer], Smoking Cessation Medications and DC Order Prescriptions: Continued clopidogrel [Plavix] 75 mg tablet 75 mg PO QAM finasteride 5 mg tablet 5 mg PO QPM folic acid 1 mg tablet 1 mg PO QAM levothyroxine 125 mcg tablet 125 mcg PO DAILYBB Rx Instructions: TAKE THIS MEDICATION AT LEAST 30 MINUTES BEFORE EATING OR ANY OTHER MEDICATION tamsulosin [Flomax] 0.4 mg capsule 0.4 mg PO HS PreserVision AREDS 2 Plus MV 200 mcg-15 mcg- 5 mg-1 mg capsule 1 cap PO DAILY losartan 50 mg tablet 50 mg PO QAM Hold Instructions: Resume on 09/19/24. discuss w/ your doctor if/when to resume atorvastatin 40 mg Tablet 40 mg PO QAM metoprolol succinate 25 mg Tablet Extended Release 24 Hr 25 mg PO AMHS amlodipine 5 mg tablet 5 mg PO QAM insulin aspart U-100 100 unit/mL solution 0 unit subcut CONTINOUS Rx Instructions: up to 200 units daily VIA INSULIN PUMP, pt states average daily insulin via pump =200 units venlafaxine 150 mg capsule,extended release 24hr 150 mg PO QAM nitroglycerin 0.4 mg tablet, sublingual 0.4 mg sublingual DIRECTED PRN (Reason: Chest Pain) Patient Comments: have never needed gabapentin 300 mg capsule 300 mg PO BID aspirin 81 mg Tablet,Delayed Release (Dr/Ec) 81 mg PO BID Qty: 0 0RF potassium chloride 20 mEq tablet,ER particles/crystals 20 meq PO AMHS thiamine HCl (vitamin B1) 100 mg Tablet 100 mg PO QAM Qty: 30 0RF Advanced Probiotic 625 mg (10 billion cell) Capsule 1 cap PO DAILY Qty: 14 0RF furosemide 40 mg tablet 40 mg PO BID Rx Instructions: one tablet in am and one tablet at noon cyclosporine [Restasis] 0.05 % Dropperette 1 drp OPB Q12H pantoprazole 40 mg tablet,delayed release (DR/EC) 40 mg PO BID Discharge Orders: Discharge Order (Routine); Ordered 02/19/25 Ordered By: Aristeo Wisdom/Allen Patient Handouts: Preventing Deep Vein Thrombosis Admission Data Admit Date/Time: 02/14/25 15:51 Attending Provider: Aristeo Wise Admit Provider: Miryam Lynne Primary Care Provider: Farzad Hatfield Other Providers: Miryam Lynne; Karri Sullivan Jr; John Simon; Amy Abel; Acacia Mejia; Corine Bernal; Sari Reyna; Odin De Oliveira; Jolene House; Oliver Dozier; Marilynn Arnett; Giuseppe Gurrola; Bianca Hatfield; Obey Botello; Kandis Tenorio; Lilian Killian; Norberto Mccann; Neo Valle; Livier Clark; Katie Gonzalez; Leonora Biggs; Samira Irizarry; Joselyn Tolentino; Regla Gan; John Avina; Neo Hatfield; China Sanders; Mary Sommers; [facility]
[2025-02-19 21:13] VITALS: PULSE 61; O2SAT 98
== END 2025-02-19 21:44 | disposition home health service (06) | DRG 378 ==
LOC: ED 10:42 → EDINP 15:51 → SUATTDRO 15:51 → 2S 17:22